=== PATIENT | male | born 1965 | race Two or more races ===

== ENCOUNTER 2024-07-08 14:31 | Inpatient (IN) | payer OTHER, MEDICAID ==
[~2024-07-08] VITALS: Ht 165.1 cm; Wt 85.6 kg
[2024-07-08] MEDS: ACETAMINOPHEN 325 MG TAB PO ONE (15:01)
--- NOTE | 2024-07-08 15:12 | ED.PDOC ---
HPI Comments 58Y M with PMHx CAD, HLD, kidney CA s/p nephrectomy on HD, and CABG presents to ED via EMS for chief complaint chest pain x last night with fever and cough. Pt denies SOB. No other symptoms reported. Pt has dialysis on , , and . Chief Complaint: Chest Pain Time Seen by MD: 14:45 Reviewed Notes: Nurses Notes, Forklift Wheel Loader Notes, Medications, Allergies Allergies: Coded Allergies: NO KNOWN ALLERGIES (Unverified , 07/08/24) Information Source: Patient, Emergency Med Personnel Mode of Arrival: EMS Brought in by: EMS Severity: Mild Timing: Hours Duration: Since onset Prehospital treatment: None Radiation: No Radiation Onset: At Rest Cardiac Risk Factors: Other PE Risk Factors: None History of: None Modifying Factors: Nothing Associated Signs and Symptoms: Other Past Medical History PAST MEDICAL HISTORY: CAD, Cancer, High Lipids Surgical History: CABG Family History Family History: Unknown Social History Smoker: Non-Smoker Alcohol: Denies ETOH Use Drugs: Denies Drug Use Lives In: Home Constitutional: reports: fever; denies: chills, diaphoresis, fatigue, malaise, sweats, weakness, others EENTM: denies: blurred vision, double vision, ear bleeding, ear discharge, ear drainage, ear pain, ear ringing, eye pain, eye redness, hearing loss, mouth pain, mouth swelling, nasal discharge, nose bleeding, nose congestion, nose pain, photophobia, tearing, throat pain, throat swelling, voice changes, others Respiratory: reports: cough; denies: hemoptysis, orthopnea, SOB at rest, shortness of breath, SOB with excertion, stridor, wheezing, others Cardiovascular: reports: chest pain; denies: dizzy spells, diaphoresis, Dyspnea on exertion, edema, irregular heart beat, left arm pain, lightheadedness, palpitations, PND, syncope, others Gastrointestinal: denies: abdomen distended, abdominal pain, blood streaked bowels, constipated, diarrhea, dysphagia, difficulty swallowing, hematemesis, melena, nausea, poor appetite, poor fluid intake, rectal bleeding, rectal pain, vomiting, others Genitourinary: denies: burning, dysuria, flank pain, frequency, hematuria, incontinence, penile discharge, penile sore, pain, testicle pain, testicle swelling, urgency, others Neurological: denies: dizziness, fainting, headache, left sided numbness, left sided weakness, numbness, paresthesia, pre-existing deficit, right sided numbness, right sided weakness, seizure, speech problems, tingling, tremors, weakness, others Musculoskeletal: denies: back pain, gout, joint pain, joint swelling, muscle pain, muscle stiffness, neck pain, others Integumetry: denies: bruises, change in color, change in hair/nails, dryness, laceration, lesions, lumps, rash, wounds, others Allergic/Immunocompromised: denies: Difficulty Healing, Frequent Infections, Hives, Itching, others Hematologic/Lymphatic: denies: anemia, blood clots, easy bleeding, easy bruising, swollen glands, others Endocrine: denies: excessive hunger, excessive sweating, excessive thirst, excessive urination, flushing, intolerance to cold, intolerance to heat, unexplained weight gain, unexplained weight loss, others Psychiatric: denies: anxiety, bipolar disorder, depression, hopeless, panic disorder, schizophrenia, sleepless, suicidal, others All Other Systems: Reviewed and Negative Physical Exam General Appearance: No Apparent Distress, Normal HEENT: Normal ENT Inspection, Pharynx Normal, TMs Normal Neck: Full Range of Motion, Non-Tender, Normal, Normal Inspection Respiratory: Chest Non-Tender, Lungs Clear, No Accessory Muscle Use, No Respiratory Distress, Normal Breath Sounds Cardiovascular: No Edema, No JVD, No Murmur, No Gallop, Normal Peripheral Pulses, Regular Rate/Rhythm Breast Exam: Deferred Gastrointestinal: No Organomegaly, Non Tender, No Pulsatile Mass, Normal Bowel Sounds, Soft Genitalia: Deferred Pelvic: Deferred Rectal: Deferred Extremities: No calf tenderness, Normal capillary refill, Normal inspection, Normal range of motion, Non-tender, No pedal edema Musculoskeletal : Apperance: Normal Neurologic: Alert, pan devulcanizer II-XII nml as Tested, No Motor Deficits, Normal Affect, Normal Mood, No Sensory Deficits Cerebellar Function: Normal Reflexes: Normal Skin: Dry, Normal Color, Warm Lymphatic: No Adenopathy EKG EKG : Pulse Rate (adult): 78 [place]: Normal Cardiac Rhythm: NSR Block: None Hypertrophy: None ST: Normal Was a procedure done? Was a procedure done?: Yes Sedation Sedation?: No Central Line Recorder of insertion practice: Director Instructional Material Occupation of wire chief: Attending Physician (Glen Bowman MD) Indication: Hypotension, Volume resuscitation Room prepared for procedure: Yes Director Instructional Material performed hand hygien: Yes Maximal sterile barrier precau: Sterile gown, Sterlie gloves, Large sterlie drape Skin Preparation: Chlorhexidine gluconate Skin preparation completely dr: Yes Insertion site: Left, Femoral Central line catheter type: [id number] dialysis Number of lumens: 3 Central line exchanged over a: Yes Antiseptic ointment applied to: No Post Assessment: Proper placement Informed consent obtained: Yes Risks/benefits/alt described: Yes CP Differential Dx Differential Diagnosis: Other Differential Diagnosis: Angina, Chest Wall Pain, Costochondritis, Myocardial Infarction, Pericarditis, Pneumonia, Other (sepsis, necrotizing fasciitis) X-Ray, Labs, Meds, VS Vital Signs Date Time Temp Pulse Resp B/P (MAP) Pulse Ox O2 Delivery O2 Flow Rate FiO2 07/08/24 20:05 87/46 07/08/24 20:00 85 07/08/24 19:50 85/46 07/08/24 19:45 73/42 07/08/24 19:45 82/46 07/08/24 19:35 86/52 07/08/24 19:30 81 8 100 Nasal Cannula* 4 36 07/08/24 19:30 81 8 86/52 (63) 100 07/08/24 19:15 78 16 88/61 (70) 99 07/08/24 19:15 88/61 07/08/24 19:00 78 16 96/55 (69) 99 07/08/24 19:00 96/55 07/08/24 18:45 77 16 91/59 (70) 99 07/08/24 18:30 94/64 07/08/24 18:30 78 16 94/64 (74) 99 07/08/24 18:28 81 20 94 Nasal Cannula* 4 36 07/08/24 18:15 73 16 59/33 (42) 99 07/08/24 18:15 64/33 07/08/24 18:00 72 16 56/34 (41) 99 07/08/24 17:52 78 07/08/24 17:45 76 16 83/59 (67) 99 07/08/24 17:34 78 07/08/24 17:30 77 16 83/49 (60) 99 07/08/24 17:30 83/49 07/08/24 17:25 84/48 07/08/24 17:15 77 16 73/48 (56) 99 07/08/24 17:15 74/34 07/08/24 17:00 77 16 83/51 (62) 99 07/08/24 16:45 80 16 86/55 (65) 99 07/08/24 16:35 82 07/08/24 16:30 80 16 98/51 (67) 99 07/08/24 16:15 82 16 103/50 (67) 99 07/08/24 16:00 98.9 89 16 117/53 (74) 99 98.9 07/08/24 15:32 83 07/08/24 15:01 89 16 99 Room Air 07/08/24 15:01 104.0 07/08/24 15:01 104.4 89 16 128/49 (75) 99 104.4 07/08/24 14:57 99.9 105 32 100/58 (72) 96 07/08/24 14:39 98 Lab Test 07/08/24 21:11 07/08/24 18:40 07/08/24 17:54 07/08/24 16:53 Range/Units Lactic Acid Level Pending 3.4 *H 3.1 *H 0.4-2.0 mmol/L Troponin I High Sensitivity 33 </=54 ng/L POC Glucose 87 70-106 mg/dl Test 07/08/24 16:25 07/08/24 15:22 07/08/24 15:07 Range/Units Troponin I High Sensitivity 33 32 </=54 ng/L White Blood Count 1.8 *L 4.4-10.8 10^3/uL Red Blood Count 2.13 L 4.5-5.90 10^6/uL Hemoglobin 7.5 L 13.5-17.5 g/dL Hematocrit 23.1 L 41.0-53.0 % Mean Corpuscular Volume 108.6 H 80.0-100.0 fL Mean Corpuscular Hemoglobin 35.4 H 28.0-32.0 pg Mean Corpuscular Hemoglobin Concent 32.7 32.0-36.0 g/dL Red Cell Distribution Width 15.6 H 11.8-14.3 % Platelet Count 62 L 140-450 10^3/uL Mean Platelet Volume 9.5 6.9-10.8 fL Neutrophils (%) (Auto) 37.0-80.0 % Lymphocytes (%) (Auto) 10.0-50.0 % Monocytes (%) (Auto) 0.0-12.0 % Basophils (%) (Auto) 0.0-2.0 % Neutrophils # (Auto) 1.6-8.6 10 ^3/uL Lymphocytes # (Auto) 0.4-5.4 10 ^3/uL Monocytes # (Auto) 0-1.3 10 ^3/uL Differential Total Cells Counted 100.0 100 Neutrophils % (Manual) 53 37.0-80.0 Band Neutrophils % (Manual) 11 Lymphocytes % (Manual) 34 10.0-50.0 Monocytes % (Manual) 2 0-12 Eosinophils % (Manual) 0 0-7 Basophils % (Manual) 0 0.0-2.0 Metamyelocytes % (manual) 0 Myelocytes % (Manual) 0 Promyelocytes % (Manual) 0 Blast Cells % (Manual) 0 Reactive Lymphocytes 0 Platelet Estimate Decreased Prothrombin Time 17.4 H 9.3-11.8 sec Prothrombin Time INR 1.71 H 0.9-1.15 Activated Partial Thromboplast Time 32.6 24.5-34.5 SEC Sodium Level 137 136-145 mmol/L Potassium Level 4.1 3.5-5.1 mmol/L Chloride Level 103 98-107 mmol/L Carbon Dioxide Level 23 20-31 mmol/L Anion Gap 11 5-15 Blood Urea Nitrogen 37 H 9-23 mg/dL Creatinine 5.66 H 0.700-1.30 mg/dL Glomerular Filtration Rate Calc 11 >90 mL/min BUN/Creatinine Ratio 6.5 L 10.0-20.0 Serum Glucose 80 74-106 mg/dL Calcium Level 7.7 L 8.7-10.4 mg/dL Total Bilirubin 0.6 0.2-1.0 mg/dL Aspartate Amino Transferase (AST) 244 H 13-40 U/L Alanine Aminotransferase (ALT) 561 H 7-40 U/L Alkaline Phosphatase 105 46-116 U/L Creatine Kinase 114 46-171 U/L Total Protein 5.4 L 5.7-8.2 g/dL Albumin 3.5 3.2-4.8 g/dL Influenza Type A Antigen Negative Negative Influenza Type B Antigen Negative Negative SARS-CoV-2 Antigen (Rapid) Negative NEGATIVE Current Medications Medications (Trade) Dose Ordered Sig/Rey Route Start Time Stop Time Status Last Admin Acetaminophen (Tylenol Tablet) 650 mg ONCE ONCE PO 07/08/24 15:00 07/08/24 15:01 DC 07/08/24 15:01 Sodium Chloride 1,800 ml @ 1,800 mls/hr ONCE ONCE IV 07/08/24 17:00 07/08/24 17:59 DC 07/08/24 17:00 Piperacillin Sod/ Tazobactam Sod 50 ml @ 50 mls/hr ONCE ONCE IV 07/08/24 17:00 07/08/24 17:59 DC 07/08/24 17:00 Norepinephrine Bitartrate 250 ml @ 3.75 mls/hr Q24H IV 07/08/24 17:15 07/08/24 17:15 Vancomycin HCl 250 ml @ 200 mls/hr ONCE ONCE IV 07/08/24 17:15 07/08/24 18:29 DC 07/08/24 17:15 Phenylephrine HCl 250 ml @ 30 mls/hr Q8H20M ONCE IV 07/08/24 19:30 07/09/24 03:49 07/08/24 19:45 Acetaminophen/ Hydrocodone Bitart ([place] 10/325MG Tab) 2 tab ONCE ONCE PO 07/08/24 19:30 07/08/24 19:31 DC 07/08/24 20:02 [place] [id number] Ph: [phone] DIAGNOSTIC IMAGING Diagnostic Imaging Report : [id number] Signed PATIENT: LARON GARCIA ACCT: [id number] UNIT: [id number] : 1965 LOC: ER ROOM / BED: / AGE / SEX: 58 / M ADM STATUS: REG ER SERVICE 1452 ORDERING PHYSICIAN: TRACEY OROZCO MD PROCEDURE(s): CXRP - CHEST PORTABLE REASON: CP ORDER NUMBER(s): [id number], ACCESSION NUMBER(s): [id number] CHEST RADIOGRAPH Indication: CP Technique: Single frontal view of the chest was obtained Comparison: None FINDINGS: Lines and Tubes: None Lungs: Bronchovascular crowding due to low lung volumes. Diffuse interstitial prominence with obscuration of the left hemidiaphragm. No pneumothorax. Cardiomediastinal contours: [id number] cardiomegaly. Midline sternotomy wires with surgical clips are noted consistent with prior history of CABG. Bones: No acute osseous abnormality. IMPRESSION: Bronchovascular crowding. Underlying mild pulmonary vascular congestion can not be excluded. Obscuration of the left hemidiaphragm which may be from overlying cardiac silhouette with underlying pleural effusion /atelectasis / pneumonia not excluded. ATED BY: KAY OGDEN DO DICTATED DATE/TIME: 07/08/241605 SIGNED BY: KAY OGDEN DO SIGNED DATE/TIME: 07/08/241605 CC: X-Ray, Labs, Meds, VS Comment Addendum by Dr. Aretha Bowman Patient endorsed to me by Dr. Orozco to follow-up on CT results and admit. 58-year-old male with history of renal cancer on dialysis, hypertension, hyperlipidemia presenting with chest pain , fever, cough, body aches Vitals remarkable for BP 86/52 Rhythm strip independently interpreted by me: Sinus rhythm, rate 78, no ectopy. EKG sinus rhythm, no ST/T changes Chest x-ray IMPRESSION: Bronchovascular crowding. Underlying mild pulmonary vascular congestion can not be excluded. Obscuration of the left hemidiaphragm which may be from overlying cardiac silhouette with underlying pleural effusion /atelectasis / pneumonia not excluded. CT right thigh: IMPRESSION: Subcutaneous edema right worse than left No gas in the soft tissues. Small bilateral effusions in the knee. Lower extremity ultrasound bilateral: Impression: 1. No right or left femoropopliteal venous thrombosis. 2. Right popliteal trifurcation region not evaluated because of patient's unable to tolerate compression. CBC remarkable for WBC 1.8, hemoglobin 7.5, hematocrit 23.1, platelets 62, CMP remarkable for BUN 37, creatinine 5.66, calcium 7.7, AST 244, ALT 561, coag panel remarkable for PT 17.4, INR 1.71, total CK normal, troponin negative x2, lactate 3.1, repeat 3.4 Patient treated with the following in the ED: Zosyn 4.5 g IV g IV, vancomycin per pharmacy IV, cefepime 1 g IV, Tylenol 650 mg p.o., [place] 10/325 mg 2 tabs p.o. Hypotensive, so started on Levophed infusion, then phenylephrine infusion added Morphine 4 mg IV, Zofran 4 mg IV once blood pressure stable Patient will need ICU admission Time of 1ST Reevaluation: 15:15 Reevaluation 1ST: Unchanged Time of 2ND Reevaluation: 17:49 Reevaluation 2ND: Unchanged (pt is resting comfortrably, but the right thigh is heating fixture tender, no crepitus. no changes in the purpura) Patient Education/Counseling: Diagnosis, Treatment, Prognosis, Need For Follow Up Family Education/Counseling: No Family Present Additional Information I reviewed the following notes from patient's past medical encounters: None The following tests were ordered, and results were reviewed by me: EKG x3, CBC, CMP, Troponin x3, COVID19 Ag, Influenza A&B, CXR Additional Information was gathered from interviewing the following independent historians: EMS I reviewed and agreed with the following test results read by other providers: CXR I discussed treatment and results with medical personnel. pt is resting comfortably, but his right thigh has extensive purpura and left knee has a small purpura. pt denies injuries. he does have sepsis but the source is unclear. he has pneumonia symptoms, but cxr is inconclusive. sepsis order has been initiated. ct of both lower extremities are ordered to rule out necrotizing fasciitis. pt will be admitted if ct is negative for necrotizing fasciitis pt is still pending ct. i will sign out to Dr Aretha Morley Sepsis Sepsis Reasesment Focused Exam Sepsis focused exam: focus exam completed (2115. Vitals stable. On Levophed and phenylephrine) Departure 1 Departure Time of Disposition: 16:54 Impression: Primary Impression: Renal failure Qualified Codes: N17.9 - Acute kidney failure, unspecified; N18.9 - Chronic kidney disease, unspecified Additional Impressions: Pancytopenia Sepsis Qualified Codes: A41.9 - Sepsis, unspecified organism Purpura Pneumonia Qualified Codes: J18.9 - Pneumonia, unspecified organism Disposition: ADMITTED INPATIENT Admit to: [facility] Condition: Critical Critical Care Note Critical Care Time?: Yes (1 hr-critical care time only) Critical care comment: Due to concerns for patients condition deteriorating, the care required my highest level of attention and readiness to intervene. I assessed the patient, reviewed the medical records, ordered the appropriate tests and treatments, then reassessed for results and responsiveness. I communicated with medical personnel and consultants and formulated a plan of care. Total critical care time excludes any procedures Stability Stability form required: No Heart Score Heart Score: Heart Score Response (Comments) Value History Moderate Suspicious 1 EKG Normal 0 Age 45-64 1 Risk Factors >3 or Hx ASHD 2 Troponin Normal limit 0 Total 4 I personally scribed for TRACEY OROZCO MD ([facility]) on 07/08/24 at 15:12. Electronically submitted by Katheryn Goldman ([facility]). I personally scribed for TRACEY OROZCO MD ([facility]) on 07/08/24 at 16:12. Electronically submitted by Katheryn Goldman ([facility]). I personally scribed for TRACEY OROZCO MD ([facility]) on 07/08/24 at 19:42. Electronically submitted by Jatinder Recinos ([facility]). TRACEY OROZCO MD Jul 08, 2024 15:12 ANDER VASQUES MD Jul 08, 2024 21:18
[2024-07-08 15:39] LABS: Hematocrit 23.1 % (41.0-53.0); Hemoglobin 7.5 g/dL (13.5-17.5); Mean Corpuscular Hemoglobin 35.4 pg (28.0-32.0); Mean Corpuscular Hgb Conc. 32.7 g/dL (32.0-36.0); Mean Corpuscular Volume 108.6 fL (80.0-100.0); Platelet Count (auto) 62 10^3/uL (140-450); Red Blood Cells 2.13 10^6/uL (4.5-5.90); Red Cell Distribution Width 15.6 % (11.8-14.3)
[2024-07-08 15:42] LABS: White Blood Cell 1.8 10^3/uL (4.4-10.8)
[2024-07-08 15:51] LABS: Basophils % (manual) 0 (0.0-2.0); Blast Cells 0; Eosinophils % (manual) 0 (0-7); Metamyelocytes % 0; Myelocytes % 0; Promyelocytes % 0; Reactive Lymphocytes 0
--- NOTE | 2024-07-08 16:09 | DVH ---
CHEST RADIOGRAPH Indication: CP Technique: Single frontal view of the chest was obtained Comparison: None FINDINGS: Lines and Tubes: None Lungs: Bronchovascular crowding due to low lung volumes. Diffuse interstitial prominence with obscura tion of the left hemidiaphragm. No pneumothorax. Cardiomediastinal contours: [id number] cardiomegaly. Midline sternotomy wires with surgical cl ips are noted consistent with prior history of CABG. Bones: No acute osseous abnormality. IMPRESSION: Bronchovascular crowding. Underlying mild pulmonary vascular congestion can not be excluded. Obscuration of the left hemidiaphragm which may be from overlying cardiac silhouette with underlying pleural effusion /atelectasis / pneumonia not excluded.
[2024-07-08 16:11] LABS: COVID19 ANTIGEN SOFIA FIA NEGATIVE (NEGATIVE); Rapid Influenza A Negative (Negative); Rapid Influenza B Negative (Negative)
[2024-07-08 16:15] LABS: Albumin 3.5 g/dL (3.2-4.8); Alkaline Phosphatase 105 U/L (46-116); Anion Gap 11 (5-15); BUN/Creatinine Ratio 6.5 (10.0-20.0); Carbon Dioxide 23 mmol/L (20-31); Chloride 103 mmol/L (98-107); Glucose 80 mg/dL (74-106); Potassium 4.1 mmol/L (3.5-5.1); Sodium 137 mmol/L (136-145)
[2024-07-08 16:16] LABS: Bilirubin, Total 0.6 mg/dL (0.2-1.0)
[2024-07-08 16:19] LABS: Alanine Aminotransferase 561 U/L (7-40); Aspartate Aminotransferase 244 U/L (13-40); Blood Urea Nitrogen 37 mg/dL (9-23); Calcium 7.7 mg/dL (8.7-10.4); Total Protein 5.4 g/dL (5.7-8.2)
[2024-07-08 16:46] LABS: Band Neutrophils % (manual) 11; Lymphocytes % (manual) 34 (10.0-50.0); Monocytes % (manual) 2 (0-12); Platelet Estimate Decreased
[2024-07-08] MEDS ORDERED: VANCOMYCIN PER PHARMACY 0 MG IV SCH (17:00)
[2024-07-08] MEDS: PIPERACILLIN-TAZOB 2.25GM 50 ML IV ONE (17:00)
[2024-07-08] MEDS: SODIUM CHLORIDE 0.9% 1,800 ML IV ONE (17:00)
[2024-07-08] MEDS: NOREPINEPHRINE 8 MG/250ML KIT 250 ML IV SCH (17:15)
[2024-07-08] MEDS: VANCOMYCIN 1.25GM/250ML 250 ML IV ONE (17:15)
[2024-07-08 18:28] VITALS: PULSE 81; RESP 20; O2SAT 94
[2024-07-08 19:05] LABS: Lactic Acid w/Reflex 3.1 mmol/L (0.4-2.0)
--- NOTE | 2024-07-08 19:15 | DVH ---
INDICATION: bilateral thighs tender,m swollen, r/o necrotizing fascitis COMPARISON: None TECHNIQUE: CT of the right was performed without contrast. Volume transverse images were obtained a nd reconstructed in multiple planes using bone and soft tissue algorithms. CONTRAST: None Radiation Dose Information: CT Dose: CTDI volume is 12.86 mGy. Dose-length product is 1061.02 mGy*cm FINDINGS: The alignment is normal. The joint spaces are normal. Small bilateral joint effusions of the knee There is no fracture, dislocation, or focal osseous lesions. The soft tissues are normal. No gas in the soft tissues. Subcutaneous edema right worse than left. N o drainable fluid collections. IMPRESSION: Subcutaneous edema right worse than left No gas in the soft tissues. Small bilateral effusions in the knee.
[2024-07-08 19:30] VITALS: PULSE 81; RESP 8; O2SAT 100
[2024-07-08 19:43] LABS: INR 1.71 (0.9-1.15); Partial Thromboplastin Time 32.6 SEC (24.5-34.5); Prothrombin Time 17.4 sec (9.3-11.8)
[2024-07-08] MEDS: PHENYLEPHRINE IV 250 ML IV ONE (19:45)
[2024-07-08] MEDS: HYDROcodone-ACET 10/325MG TAB PO ONE (20:02)
--- NOTE | 2024-07-08 20:55 | DVH ---
Bilateral lower extremity venous duplex Clinical History: edema r/o dvt Comparison: None Technique: Duplex Doppler evaluation of the deep venous systems of both lower extremities from the common femora l veins to the popliteal veins including color Doppler and spectral/pulsed waveform analysis was perf ormed. Findings: RIGHT SIDE: The common femoral vein demonstrates appropriate compressibility and waveform variability. There is compressibility/patency of the great saphenous vein at the proximal thigh. The femoral vein demonstrates appropriate compressibility and waveform variability. The deep femoral vein demonstrates appropriate compressibility and waveform variability. The popliteal vein patient unable to tolerate compression of the popliteal vein and therefore not vis ualized. Patient unable to tolerate compression of the trifurcation region and therefore not imaged LEFT SIDE: The common femoral vein demonstrates appropriate compressibility and waveform variability. There is compressibility/patency of the great saphenous vein at the proximal thigh. The femoral vein demonstrates appropriate compressibility and waveform variability. The deep femoral vein demonstrates appropriate compressibility and waveform variability. The popliteal vein demonstrates appropriate compressibility and waveform variability. There is normal compressibility at the tibioperoneal trunk. Impression: 1. No right or left femoropopliteal venous thrombosis. 2. Right popliteal trifurcation region not evaluated because of patient's unable to tolerate compress ion.
[2024-07-08 21:44] LABS: Lactic Acid w/Reflex 3.8 mmol/L (0.4-2.0)
[2024-07-08] MEDS ORDERED: CEFEPIME 1GM/ 50ML 50 ML IV SCH (22:00)
[2024-07-08] MEDS: MORPHINE SULFATE 4 MG/ML SYR/VIAL IV ONE (22:31)
[2024-07-08] MEDS: ONDANSETRON HCL 4 MG/2 ML VIAL IV ONE (22:32)
[2024-07-08] MEDS: PHENYLEPHRINE IV 250 ML IV SCH (23:12)
[2024-07-09] VITALS (30 sets, daily range): BP systolic 95–174; BP diastolic 29–95; PULSE 78–124; RESP 15–26; TEMP 97–98; O2SAT 98–100
[2024-07-09] MEDS ORDERED: ONDANSETRON HCL 4 MG/2 ML VIAL IV PRN (01:45)
[2024-07-09] MEDS ORDERED: DOCUSATE SOD 100 MG CAP PO PRN (01:45)
[2024-07-09] MEDS: levoFLOXacin 500MG 100 ML IV ONE (02:46)
--- NOTE | 2024-07-09 03:10 | DVHHP2 ---
History of Present Illness Reason for Visit: Sepsis, unspecified organism History of Present Illness The patient is a 58-year-old male with past medical history of kidney cancer status post nephrectomy on hemodialysis, Coronary artery disease, and hyperlipidemia who presented to [facility] ED with complaint of [address] pain. Patient reports symptoms progressively get worse with fever, nonproductive cough, right thigh redness/tenderness, getting worse that prompted this visit. Patient was seen and evaluated in the ED, laboratory data shows WBC 1.8, hemoglobin 7 five hematocrit 23.1, platelets 16892, sodium 137, potassium 4.1, BUN 37, creatinine 5.66, GFR 11, glucose 80, protein 5.4 troponin 33, lactic acid 3.8, AST 344, ALT 560, blood pressure 78/45 trending up to 99/60, heart rate 88, temperature 98.9 F, O2 saturation 99% oxygen. Extremity venous study showed no evidence of venous thrombosis; chest x-ray revealing obscuration of the left hemidiaphragm which may be overlying cardiac silhouette with underlying pleural effusion/atelectasis/pneumonia not excluded. Extremity CT revealing subcutaneous edema right worse than left, small pleural effusions in the knee, no gas in the soft tissue. Patient was started on IV Levophed, antibiotic regimen vancomycin, please see medication orders section in the computer. On my assessment, patient denied chest pain, no headache, no dizziness, no diaphoresis, no nausea, no vomiting, no fever, no chills. Patient was admitted for further evaluation and medical management. Past Medical History CAD, kidney cancer, High Lipids Past Surgical History CABG, nephrectomy. Family History Reviewed, noncontributory to the management of this case. Past Social History The patient lives at home, denies smoking, alcohol or illicit drugs abuse. Review of Systems Constitutional: Yes: Fever, Weakness; No: Chills, Sweats, Malaise, Other Eyes: No: Pain, Vision change, Conjunctivae inflammation, Eyelid inflammation, Other, Redness ENT: No: Ear pain, Ear discharge, Nose pain, Nose discharge, Nose congestion, Mouth pain, Mouth swelling, Throat pain, Throat swelling, Other Respiratory: Cough; No: Dry, Shortness of breath, SOB with excertion, Wheezing, Hemoptysis, Pleuritic Pain, Sputum, Wheezing, Other Cardiovascular: Chest Pain; No: Palpitations, Orthopnea, Paroxysmal Noc. Dyspnea, Edema, Lt Headedness, Other Gastrointestinal: No: Nausea, Vomiting, Abdominal Pain, Diarrhea, Constipation, Melena, Hematochezia, Other Genitourinary: No Dysuria, No Frequency, No Incontinence, No Hematuria, No Retention, No Other Musculoskeletal: other (Right knee pain), leg pain (Right); No: neck pain, shoulder pain, arm pain, back pain, hand pain, foot pain Skin: Other (Right thigh redness); No: Rash, Lesions, Jaundice, Bruising Neurological: No: Weakness, Numbness, Incoordination, Change in speech, Confusion, Seizures, Other Allergies: Coded Allergies: NO KNOWN ALLERGIES (Unverified , 07/08/24) Medications Current Medications Medications Dose Ordered Sig/Rey Route Start Time Stop Time Status Last Admin Dose Admin Vancomycin HCl 0 ml @ 0 mls/hr UD IV 07/08/24 17:00 Norepinephrine Bitartrate 250 ml @ 3.75 mls/hr Q24H IV 07/08/24 17:15 07/09/24 02:56 30 MLS/HR Phenylephrine HCl 250 ml @ 30 mls/hr Q8H20M IV 07/08/24 23:00 07/08/24 23:12 67.5 MLS/HR Sevelamer HCl 800 mg TIDWM PO 07/09/24 08:00 Multivit/Ca Carb/ B Cmplx/FA/Prenat 1 tab DAILY PO 07/09/24 10:00 Atorvastatin Calcium 20 mg HS PO 07/09/24 22:00 Levofloxacin 50 ml @ 50 mls/hr Q48H IV 07/10/24 02:00 Sodium Chloride 10 ml Q8HR IV 07/09/24 06:00 Acetaminophen/ Hydrocodone Bitart 1 tab Q4HP PRN PO 07/09/24 01:45 Ondansetron HCl 4 mg Q4HP PRN IV 07/09/24 01:45 Docusate Sodium 100 mg BIDPRN PRN PO 07/09/24 01:45 Exam Vital Signs Vital Signs Date Time Temp Pulse Resp B/P (MAP) Pulse Ox O2 Delivery O2 Flow Rate FiO2 07/09/24 03:00 90/52 07/09/24 01:30 86 21 98 07/08/24 19:30 Nasal Cannula* 4 36 07/08/24 19:30 98.9 98.9 General Appearance: Alert, Oriented X3, Cooperative, No acute distress HEENT: Atraumatic, PERRLA, EOMI, Mucous membr. moist/pink Respiratory: Clear to auscultation, Normal air movement Cardiovascular: Regular rate, Normal S1, Normal S2, No murmurs Abdominal: Normal bowel sounds, Soft, No tenderness, No hepatospenomegaly, No masses Extremities: No clubbing, No cyanosis, No edema, Normal pulses, Other (Right thigh tenderness/swelling) Skin: No rashes, No breakdown, No significant lesion Neuro: Normal speech, Normal tone, Sensation intact, Cranial nerves 3-12 NL, Reflexes 2+, Other (Generalized weakness) Psych/Mental Status: Mental status NL, Mood NL Labs/Xrays Labs Test 07/08/24 22:27 07/08/24 21:11 07/08/24 17:54 07/08/24 15:22 Range/Units POC Glucose 78 70-106 mg/dl Lactic Acid Level 3.8 *H 0.4-2.0 mmol/L Troponin I High Sensitivity 33 </=54 ng/L White Blood Count 1.8 *L 4.4-10.8 10^3/uL Red Blood Count 2.13 L 4.5-5.90 10^6/uL Hemoglobin 7.5 L 13.5-17.5 g/dL Hematocrit 23.1 L 41.0-53.0 % Mean Corpuscular Volume 108.6 H 80.0-100.0 fL Mean Corpuscular Hemoglobin 35.4 H 28.0-32.0 pg Mean Corpuscular Hemoglobin Concent 32.7 32.0-36.0 g/dL Red Cell Distribution Width 15.6 H 11.8-14.3 % Platelet Count 62 L 140-450 10^3/uL Mean Platelet Volume 9.5 6.9-10.8 fL Neutrophils (%) (Auto) 37.0-80.0 % Lymphocytes (%) (Auto) 10.0-50.0 % Monocytes (%) (Auto) 0.0-12.0 % Basophils (%) (Auto) 0.0-2.0 % Neutrophils # (Auto) 1.6-8.6 10 ^3/uL Lymphocytes # (Auto) 0.4-5.4 10 ^3/uL Monocytes # (Auto) 0-1.3 10 ^3/uL Differential Total Cells Counted 100.0 100 Neutrophils % (Manual) 53 37.0-80.0 Band Neutrophils % (Manual) 11 Lymphocytes % (Manual) 34 10.0-50.0 Monocytes % (Manual) 2 0-12 Eosinophils % (Manual) 0 0-7 Basophils % (Manual) 0 0.0-2.0 Metamyelocytes % (manual) 0 Myelocytes % (Manual) 0 Promyelocytes % (Manual) 0 Blast Cells % (Manual) 0 Reactive Lymphocytes 0 Platelet Estimate Decreased Prothrombin Time 17.4 H 9.3-11.8 sec Prothrombin Time INR 1.71 H 0.9-1.15 Activated Partial Thromboplast Time 32.6 24.5-34.5 SEC Sodium Level 137 136-145 mmol/L Potassium Level 4.1 3.5-5.1 mmol/L Chloride Level 103 98-107 mmol/L Carbon Dioxide Level 23 20-31 mmol/L Anion Gap 11 5-15 Blood Urea Nitrogen 37 H 9-23 mg/dL Creatinine 5.66 H 0.700-1.30 mg/dL Glomerular Filtration Rate Calc 11 >90 mL/min BUN/Creatinine Ratio 6.5 L 10.0-20.0 Serum Glucose 80 74-106 mg/dL Calcium Level 7.7 L 8.7-10.4 mg/dL Total Bilirubin 0.6 0.2-1.0 mg/dL Aspartate Amino Transferase (AST) 244 H 13-40 U/L Alanine Aminotransferase (ALT) 561 H 7-40 U/L Alkaline Phosphatase 105 46-116 U/L Creatine Kinase 114 46-171 U/L Total Protein 5.4 L 5.7-8.2 g/dL Albumin 3.5 3.2-4.8 g/dL Test 07/08/24 15:07 Range/Units Influenza Type A Antigen Negative Negative Influenza Type B Antigen Negative Negative SARS-CoV-2 Antigen (Rapid) Negative NEGATIVE PATIENT: LARON GARCIA ACCT: [id number] UNIT: [id number] : 1965 LOC: ER ROOM / BED: / AGE / SEX: 58 / M ADM STATUS: REG ER SERVICE 27 ORDERING PHYSICIAN: ANDER VASQUES MD PROCEDURE(s): BLDVT - BiLat Lower DVT REASON: edema r/o dvt ORDER NUMBER(s): [id number], ACCESSION NUMBER(s): [id number] Bilateral lower extremity venous duplex Clinical History: edema r/o dvt Comparison: None Technique: Duplex Doppler evaluation of the deep venous systems of both lower extremities from the common femoral veins to the popliteal veins including color Doppler and spectral/pulsed waveform analysis was performed. Findings: RIGHT SIDE: The common femoral vein demonstrates appropriate compressibility and waveform variability. There is compressibility/patency of the great saphenous vein at the proximal thigh. The femoral vein demonstrates appropriate compressibility and waveform variability. The deep femoral vein demonstrates appropriate compressibility and waveform variability. The popliteal vein patient unable to tolerate compression of the popliteal vein and therefore not visualized. Patient unable to tolerate compression of the trifurcation region and therefore not imaged LEFT SIDE: The common femoral vein demonstrates appropriate compressibility and waveform variability. There is compressibility/patency of the great saphenous vein at the proximal thigh. The femoral vein demonstrates appropriate compressibility and waveform variability. The deep femoral vein demonstrates appropriate compressibility and waveform variability. The popliteal vein demonstrates appropriate compressibility and waveform variability. There is normal compressibility at the tibioperoneal trunk. Impression: 1. No right or left femoropopliteal venous thrombosis. 2. Right popliteal trifurcation region not evaluated because of patient's unable to tolerate compression. ORDERING PHYSICIAN: TRACEY REBOLLEDO MD PROCEDURE(s): RLEX - LOWER EXTREMITY NON JOINT RIGH REASON: bilateral thighs tender,m swollen, r/o necrotizing fascitis ORDER NUMBER(s): [id number], ACCESSION NUMBER(s): [id number] INDICATION: bilateral thighs tender,m swollen, r/o necrotizing fascitis COMPARISON: None TECHNIQUE: CT of the right was performed without contrast. Volume transverse images were obtained and reconstructed in multiple planes using bone and soft tissue algorithms. CONTRAST: None Radiation Dose Information: CT Dose: CTDI volume is 12.86 mGy. Dose-length product is 1061.02 mGy*cm FINDINGS: The alignment is normal. The joint spaces are normal. Small bilateral joint effusions of the knee There is no fracture, dislocation, or focal osseous lesions. The soft tissues are normal. No gas in the soft tissues. Subcutaneous edema right worse than left. No drainable fluid collections. IMPRESSION: Subcutaneous edema right worse than left No gas in the soft tissues. Small bilateral effusions in the knee. ORDERING PHYSICIAN: TRACEY REBOLLEDO MD PROCEDURE(s): CXRP - CHEST PORTABLE REASON: CP ORDER NUMBER(s): [id number], ACCESSION NUMBER(s): [id number] CHEST RADIOGRAPH Indication: CP Technique: Single frontal view of the chest was obtained Comparison: None FINDINGS: Lines and Tubes: None Lungs: Bronchovascular crowding due to low lung volumes. Diffuse interstitial prominence with obscuration of the left hemidiaphragm. No pneumothorax. Cardiomediastinal contours: Afdw-nv-aihaobih cardiomegaly. Midline sternotomy wires with surgical clips are noted consistent with prior history of CABG. Bones: No acute osseous abnormality. IMPRESSION: Bronchovascular crowding. Underlying mild pulmonary vascular congestion can not be excluded. Obscuration of the left hemidiaphragm which may be from overlying cardiac silhouette with underlying pleural effusion/atelectasis/pneumonia not excluded. Assessment/Plan Assessment/Plan End-stage renal disease on hemodialysis Acute kidney failure, unspecified Chronic kidney disease, unspecified Pancytopenia Severe anemia Necrotizing fasciitis of lower leg Sepsis, unspecified organism Purpura Elevated liver enzymes Generalized weakness Pneumonia, unspecified organism Plan 1. Admit to telemetry unit 2. Breathing treatment 3. Pain control management 4. IV antibiotic management 5. Management of fluids and electrolytes 6. Consultation for Nephrology/cardiology 7. Diagnostic test chest x-ray 8. DVT prophylaxis on SCDs 9. Repeat labs CBC, CMP in a.m. 10. Home medication reviewed and reconciled 11. Continue with current medical management 12. Treatment plan discussed with patient and RN. Patient verbalized understanding. Plan discussed with: Patient, Other (RN) My Orders Orders - NEDA REYES DNP Procedure Category Date Status Time Sevelamer (Renagel) PHA 07/09/24 In Process 08:00 B-Complex W/ C & PHA 07/09/24 In Process Folic Tablet 10:00 Atorvastatin (Lipitor) PHA 07/09/24 In Process 22:00 Allergies EV 07/09/24 In Process 01:32 Code Status CODE 07/09/24 Transmitted 01:32 Renal DIET 07/09/24 Transmitted Standard(2gna,3gk,Lopho) Breakfast Sodium Chloride Lock PHA 07/09/24 In Process (Saline Lock Ns) 06:00 Oxygen Per Hour RT 07/09/24 Transmitted 01:32 Hydrocodone-Acet PHA 07/09/24 In Process 5/325mg Tab ([place] 01:45 Ondansetron Hcl PHA 07/09/24 In Process (Zofran) 01:45 Docusate Sodium PHA 07/09/24 In Process Capsule (Colace 01:45 Fall Risk Precautions EV 07/09/[address] 01:32 Complete Blood Count LAB 07/10/24 Verified 04:00 Comprehensive LAB 07/10/24 Verified Metabolic Panel 04:00 Condition: Serious EV 07/09/24 In Process 01:32 Sequential EV 07/09/24 In Process Compression Device *Dr. [facility] CONS 07/09/24 Transmitted -[place] 01:32 Levofloxacin 250mg PHA 07/10/24 In Process (Levaquin 250mg) 02:00 Problem List: (1) End-stage renal disease on hemodialysis (2) Generalized weakness (3) Severe anemia (4) Sepsis, unspecified organism (5) Pneumonia, unspecified organism (6) Purpura (7) Pancytopenia (8) Chronic kidney disease, unspecified (9) Elevated liver enzymes (10) Acute kidney failure, unspecified (11) Necrotizing fasciitis of lower leg Date of Service: Jul 09, 2024 Billing Provider: NEDA REYES DNP Common Visit Codes: 68225-AMSOAZF INP/OBS CARE (HIGH) NEDA REYES DNP Jul 09, 2024 03:10
[2024-07-09] MEDS ORDERED: NITROGLYCERIN 0.4 MG SL TAB SL PRN (03:15)
[2024-07-09] MEDS: SODIUM CHLOR 0.9% PF (SALINE LOCK) 10ML VIAL/SYR IV SCH (06:05)
[2024-07-09] MEDS: MORPHINE SULFATE INJ 2 MG/ml SYRG IV PRN (06:32)
[2024-07-09 06:34] LABS: Basophils # (auto) 0 10 ^3/uL (0-0.2); Basophils % (auto) 0.1 % (0.0-2.0); Eosinophils # (auto) 0.1 10 ^3/uL (0-0.8); Lymphocytes # (auto) 0.6 10 ^3/uL (0.4-5.4); Monocytes % (auto) 6.5 % (0.0-12.0)
[2024-07-09 06:38] LABS: Eosinophils % (auto) 2.9 % (0.0-7.0); Hematocrit 24.8 % (41.0-53.0); Hemoglobin 8.2 g/dL (13.5-17.5); Lymphocytes % (auto) 14.6 % (10.0-50.0); Mean Corpuscular Hemoglobin 36.2 pg (28.0-32.0); Mean Corpuscular Volume 109.7 fL (80.0-100.0); Monocytes # (auto) 0.3 10 ^3/uL (0-1.3); Neutrophils % (auto) 75.9 % (37.0-80.0); Platelet Count (auto) 59 10^3/uL (140-450); Red Blood Cells 2.26 10^6/uL (4.5-5.90); Red Cell Distribution Width 16.3 % (11.8-14.3); White Blood Cell 3.9 10^3/uL (4.4-10.8)
--- NOTE | 2024-07-09 07:46 | ECG ---
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
--- NOTE | 2024-07-09 07:46 | ECG ---
[facility] Test Date: 2024-07-08 Test Time: 15:29:51 Pat Name: LARON GARCIA Department: Emergency Room: [address] [place] [address] A Gender: M Site Inspector: Praveen : 1965 Requested By: TRACEY REBOLLEDO Order Number: [id number] Reading MD: Toby Bradley Measurements Intervals [place] Rate: 83 P: 50 MI: 146 QRS: -19 QRSD: 96 T: 37 QT: 406 QTc: 477 Interpretive Statements Sinus rhythm Borderline left axis deviation Low voltage, precordial leads Abnormal R-wave progression, late transition Borderline prolonged QT interval Artifact in lead(s) I,II,III,aVR,aVL,V6 Electronically Signed On 07-09-2024 13:12:42 PST by Toby Bradley Please click the below link to view image of tracing.
--- NOTE | 2024-07-09 07:50 | ECG ---
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
[2024-07-09] MEDS: SEVELAMER 800 MG TAB PO SCH (08:42)
[2024-07-09] MEDS: HYDROcodone-ACET 5/325MG TAB PO PRN (10:00)
--- NOTE | 2024-07-09 10:08 | DVHINCON2 ---
Date Seen: Jul 09, 2024 Referring Physician JAIME De La Garza Reason for Consultation Hypotension History of Present Illness This is a 58-year-old primarily Kyrgyz-speaking male patient who presents to the emergency room for multiple chief complaints including flu-like symptoms, chest pain, and right thigh pain. The patient's who was at bedside confirms that the patient began having flu-like symptoms such as fever and nonproductive cough for three days prior to emergency room arrival. The patient also mentions chest pain which began yesterday while he was at dialysis. He describes it as unprovoked, sharp in nature, midsternal with radiation across his bilateral upper back. Associated symptoms include shortness of breath. The patient's also mentions that while the patient was at dialysis yesterday his blood pressure was noted to be low and so dialysis was not able to be done. The patient's states that the patient's right thigh became swollen and discolored yesterday for unknown reasons. He comes now to the emergency room from the dialysis center. Cardiology has now been consulted for hypotension. Initial twelve lead electrocardiogram reveals normal sinus rhythm with nonspecific ST segment changes to lateral lead (aVL) and baseline wander. Initial troponin level of 32ng/L with flat trend thereafter. The patient and his are very poor historians. Per the patient, he has mostly been seen at [facility]. He denies ever being seeing at this facility. Significant past medical history per patient includes coronary artery disease status post CABG (unknown how many vessels)in 2021, hypertension, hyperlipidemia, end-stage renal disease on hemodialysis, renal carcinoma status post left nephrectomy, asthma, COPD, and morbid obesity. The patient reports he follows up with a liner helper in the outpatient setting, but does not remember their name at this time. Of note, patient external medication list significant for Eliquis therapy. Patient and unsure of why patient takes Eliquis, denied any previous history of atrial fibrillation or DVT/PE. Past Medical History Past medical history reviewed. No other significant than mentioned above. Past Surgical History CABG in 2021 Left nephrectomy Left arm fistula Family History Family history reviewed. Social History Denies the use of tobacco, alcohol or illicit drugs. Allergies: Coded Allergies: NO KNOWN ALLERGIES (Unverified , 07/08/24) Home Meds Home medications reviewed. Current Medications Current Medications Medications (Trade) Dose Ordered Sig/Rey Route PRN Reason Start Time Stop Time Status Last Admin Cefepime HCl 50 ml @ 12.5 mls/hr Q8HR IV 07/08/24 22:00 07/08/24 16:54 DC Vancomycin HCl 0 ml @ 0 mls/hr UD IV 07/08/24 17:00 Norepinephrine Bitartrate 250 ml @ 3.75 mls/hr Q24H IV 07/08/24 17:15 07/09/24 10:00 Phenylephrine HCl 250 ml @ 30 mls/hr Q8H20M IV 07/08/24 23:00 07/09/24 03:20 Sevelamer HCl (Renagel) 800 mg TIDWM PO 07/09/24 08:00 07/09/24 08:42 Multivit/Ca Carb/ B Cmplx/FA/Prenat (Nephro-Kwaku Tablet) 1 tab DAILY PO 07/09/24 10:00 Atorvastatin Calcium (Lipitor) 20 mg HS PO 07/09/24 22:00 Levofloxacin 50 ml @ 50 mls/hr Q48H IV 07/10/24 02:00 Sodium Chloride (Saline Lock Ns) 10 ml Q8HR IV 07/09/24 06:00 07/09/24 06:05 Acetaminophen/ Hydrocodone Bitart (Granby 5/325MG Tab) 1 tab Q4HP PRN PO MODERATE PAIN (4-6 PAIN SCALE) 07/09/24 01:45 07/09/24 10:00 Ondansetron HCl (Zofran) 4 mg Q4HP PRN IV NAUSEA / VOMITING 07/09/24 01:45 Docusate Sodium (Colace Capsule) 100 mg BIDPRN PRN PO FOR CONSTIPATION 07/09/24 01:45 Nitroglycerin (Ntrostat Sublingual) 0.4 mg Q5MINP PRN SL FOR CHEST PAIN 07/09/24 03:15 Morphine Sulfate 2 mg Q30M PRN IV FOR CHEST PAIN 07/09/24 03:15 07/09/24 06:32 Review of Systems Constitutional: Generalized weakness Ears, Nose, & Throat: No symptom reported Eyes: No symptom reported Neurological: No symptoms reported Pulmonary/Respiratory: No symptoms reported Cardiovascular: Chest pain Gastrointestinal: No symptom reported Genitourinary: No symptom reported Musculoskeletal: No symptom reported Skin: No symptom reported Psychiatric: No symptom reported Endocrine: No symptom reported Hematologic/Lymphatic: No symptom reported Vital Signs Vital Signs Date Time Temp Pulse Resp B/P (MAP) Pulse Ox O2 Delivery O2 Flow Rate FiO2 07/09/24 10:00 98/62 07/09/24 07:45 88 12 99 07/08/24 19:30 Nasal Cannula* 4 36 07/08/24 19:30 98.9 98.9 Physical Exam General Appearance: Cooperative. Morbidly obese Pulmonary/Respiratory: Clear, bilateral breaths sounds. Cardiovascular/Chest: Regular rate and rhythm. Peripheral Pulses: 2+ Radial (R). 2+ Radial (L). 1+ Pedal (R). 1+ Pedal (L) Abdominal Exam: Normal bowel sounds. Soft, non-tender. Ankle Exam: Bilateral 3+ ankle edema Lower extremities: Significant edema noted to bilateral legs, more significant on right lower extremity Neuro/Mental Status: A/OX4, coherent. Thoughts/Psych: Normal thought pattern. Appropriate mood and affect. Good judgment and insight. Appearance: No acute distress. Skin Exam: Ecchymosis to right upper thigh Labs/Diagnostic Data Labs Test 07/09/24 05:49 07/08/24 22:27 07/08/24 21:11 07/08/24 17:54 Range/Units White Blood Count 3.9 #L 4.4-10.8 10^3/uL Red Blood Count 2.26 L 4.5-5.90 10^6/uL Hemoglobin 8.2 L 13.5-17.5 g/dL Hematocrit 24.8 L 41.0-53.0 % Mean Corpuscular Volume 109.7 H 80.0-100.0 fL Mean Corpuscular Hemoglobin 36.2 H 28.0-32.0 pg Mean Corpuscular Hemoglobin Concent 33.0 32.0-36.0 g/dL Red Cell Distribution Width 16.3 H 11.8-14.3 % Platelet Count 59 L 140-450 10^3/uL Mean Platelet Volume 10.5 6.9-10.8 fL Neutrophils (%) (Auto) 75.9 37.0-80.0 % Lymphocytes (%) (Auto) 14.6 10.0-50.0 % Monocytes (%) (Auto) 6.5 0.0-12.0 % Eosinophils (%) (Auto) 2.9 0.0-7.0 % Basophils (%) (Auto) 0.1 0.0-2.0 % Neutrophils # (Auto) 3.0 1.6-8.6 10 ^3/uL Lymphocytes # (Auto) 0.6 0.4-5.4 10 ^3/uL Monocytes # (Auto) 0.3 0-1.3 10 ^3/uL Eosinophils # (Auto) 0.1 0-0.8 10 ^3/uL Basophils # (Auto) 0 0-0.2 10 ^3/uL Nucleated Red Blood Cells 7.0 % Creatinine 6.53 H 0.700-1.30 mg/dL Glomerular Filtration Rate Calc 9 >90 mL/min Random Vancomycin Level 17.1 H 5-10 ug/mL POC Glucose 78 70-106 mg/dl Lactic Acid Level 3.8 *H 0.4-2.0 mmol/L Troponin I High Sensitivity 33 </=54 ng/L Test 07/08/24 15:22 07/08/24 15:07 Range/Units Differential Total Cells Counted 100.0 100 Neutrophils % (Manual) 53 37.0-80.0 Band Neutrophils % (Manual) 11 Lymphocytes % (Manual) 34 10.0-50.0 Monocytes % (Manual) 2 0-12 Eosinophils % (Manual) 0 0-7 Basophils % (Manual) 0 0.0-2.0 Metamyelocytes % (manual) 0 Myelocytes % (Manual) 0 Promyelocytes % (Manual) 0 Blast Cells % (Manual) 0 Reactive Lymphocytes 0 Platelet Estimate Decreased Prothrombin Time 17.4 H 9.3-11.8 sec Prothrombin Time INR 1.71 H 0.9-1.15 Activated Partial Thromboplast Time 32.6 24.5-34.5 SEC Sodium Level 137 136-145 mmol/L Potassium Level 4.1 3.5-5.1 mmol/L Chloride Level 103 98-107 mmol/L Carbon Dioxide Level 23 20-31 mmol/L Anion Gap 11 5-15 Blood Urea Nitrogen 37 H 9-23 mg/dL BUN/Creatinine Ratio 6.5 L 10.0-20.0 Serum Glucose 80 74-106 mg/dL Calcium Level 7.7 L 8.7-10.4 mg/dL Total Bilirubin 0.6 0.2-1.0 mg/dL Aspartate Amino Transferase (AST) 244 H 13-40 U/L Alanine Aminotransferase (ALT) 561 H 7-40 U/L Alkaline Phosphatase 105 46-116 U/L Creatine Kinase 114 46-171 U/L Total Protein 5.4 L 5.7-8.2 g/dL Albumin 3.5 3.2-4.8 g/dL Influenza Type A Antigen Negative Negative Influenza Type B Antigen Negative Negative SARS-CoV-2 Antigen (Rapid) Negative NEGATIVE Microbiology Date/Time Source Procedure Growth Status 07/08/24 18:00 Blood Blood Culture - Preliminary Resulted Assessment Hypotension secondary to septic shock Coronary artery disease status post CABG in 2021 Rule out structural heart disease Rule out right lower extremity necrotizing fasciitis History of hypertension Hyperlipidemia Hyperkalemia Bacteremia Acute anemia Thrombocytopenia Transaminitis End-stage renal disease on hemodialysis Renal cell carcinoma status post left nephrectomy COPD Asthma Morbid obesity Plan/Recommendation We will continue with the following plan/recommendations (): * Echocardiogram to evaluate cardiac function * Vasopressors for hemodynamic support * Closely monitor H&H, platelet count * Closely monitor right lower extremity * Asses for any changes or progression * Cardiac surveillance: Notify cardio team of any ECG changes * Obtain medical records from [facility] * Pulmonology and nephrology recommendations Patient seen and examined at bedside with . Thank you for allowing us to care for this patient. Please call with any questions or concerns. Critical care time spent: 44 minutes This medical document was created using an electronic medical record system with voice recognition software and computerized dictation system. Although this document has been carefully reviewed, there might still be some phonetic and typographical errors. Occasional wrong-word or ``sound-alike substitutions may have occurred due to the inherent limitations of voice recognition software. These areas are purely typographical due to imperfections of the software programs and do not reflect any compromise in the patient's medical care. Please read the chart carefully and recognize, using context, where these substitutions have occurred. Plan discussed with: Patient NYHA Physical activity limitations: NA Date of Service: Jul 09, 2024 Billing Provider: BLADIMIR BORDEN Cardiology Common Codes: 10723-DOGDSIV INP/OBS CARE (High) Cardiology Consultation Codes: 86134-[id number] CONSULT <45MIN BLADIMIR BORDEN Jul 09, 2024 10:08
--- NOTE | 2024-07-09 10:26 | DVHPN2 ---
Subjective 58 year old male on with ESRD on HD says he woke up yesterday with right leg pain, went to dialysis and from there he was sent here to ER. He did not get dialysis yesterday. He was also having chest pain Here he was septic, was started on IV antibiotics, and Levophed This morning, I examined the patient in ER bed 6, c/o increased pain in his right leg, and daughter at the bedside, stated he did not have a fall CT of the leg showed no Fx, no fluid collection I Called Dr. Mcbride for possible necrotizing fasciitis, he examined the patient, recommended IV antibiotics and possible surgical intervention Changes from previous H/P or p: Changes Eyes: No Pain, No Vision change, No Conjunctivae inflammation, No Eyelid inflammation, No Other, No Redness ENT: No Ear pain, No Ear discharge, No Nose pain, No Nose discharge, No Nose congestion, No Mouth pain, No Mouth swelling, No Throat pain, No Throat swelling, No Other Cardiovascular: Chest Pain; No Palpitations, No Orthopnea, No Paroxysmal Noc. Dyspnea, No Edema, No Lt Headedness, No Other Respiratory: Cough; No Dry, No Shortness of breath, No SOB with excertion, No Wheezing, No Hemoptysis, No Pleuritic Pain, No Sputum, No Other Gastrointestinal: No Nausea, No Vomiting, No Abdominal Pain, No Diarrhea, No Constipation, No Melena, No Hematochezia, No Other Genitourinary: No Dysuria, No Frequency, No Incontinence, No Hematuria, No Retention, No Other Musculoskeletal: No other, No neck pain, No shoulder pain, No arm pain, No back pain, No hand pain, No leg pain, No foot pain Skin: No Rash, No Lesions, No Jaundice, No Bruising, No Other Objective Vitals Vital Signs Date Time Temp Pulse Resp B/P (MAP) Pulse Ox O2 Delivery O2 Flow Rate FiO2 07/09/24 10:00 98/62 07/09/24 07:45 88 12 99 07/08/24 19:30 Nasal Cannula* 4 36 07/08/24 19:30 98.9 98.9 Intake/Output Intake and Output 07/09/24 07:00 Intake Total 3172.75 ml Balance 3172.75 ml Intake IV Total 3172.75 ml General Appearance: Alert, Other (confused) Lungs: Other (Rhonchi and crackles) Cardiovascular: Regular rate, Normal S1, Normal S2 Abdomen: Normal bowel sounds, Soft, No tenderness Extremities: Other (R thigh severe edema and tenderness and erythema with tight skin) Medications Current Medications Medications Dose Ordered Sig/Rey Route Start Time Stop Time Status Last Admin Dose Admin Vancomycin HCl 0 ml @ 0 mls/hr UD IV 07/08/24 17:00 Norepinephrine Bitartrate 250 ml @ 3.75 mls/hr Q24H IV 07/08/24 17:15 07/09/24 10:00 45 MLS/HR Phenylephrine HCl 250 ml @ 30 mls/hr Q8H20M IV 07/08/24 23:00 07/09/24 03:20 48.75 MLS/HR Sevelamer HCl 800 mg TIDWM PO 07/09/24 08:00 07/09/24 08:42 800 MG Multivit/Ca Carb/ B Cmplx/FA/Prenat 1 tab DAILY PO 07/09/24 10:00 Atorvastatin Calcium 20 mg HS PO 07/09/24 22:00 Levofloxacin 50 ml @ 50 mls/hr Q48H IV 07/10/24 02:00 Sodium Chloride 10 ml Q8HR IV 07/09/24 06:00 07/09/24 06:05 10 ML Acetaminophen/ Hydrocodone Bitart 1 tab Q4HP PRN PO 07/09/24 01:45 07/09/24 10:00 1 TAB Ondansetron HCl 4 mg Q4HP PRN IV 07/09/24 01:45 Docusate Sodium 100 mg BIDPRN PRN PO 07/09/24 01:45 Nitroglycerin 0.4 mg Q5MINP PRN SL 07/09/24 03:15 Morphine Sulfate 2 mg Q30M PRN IV 07/09/24 03:15 07/09/24 06:32 2 MG Laboratory Results Laboratory Tests 07/08/24 15:22 07/09/24 05:49 Chemistry Test 07/08/24 15:22 Albumin 3.5 g/dL (3.2-4.8) Calcium Level 7.7 mg/dL (8.7-10.4) L Total Protein 5.4 g/dL (5.7-8.2) L Coagulation Test 07/08/24 15:22 Prothrombin Time 17.4 sec (9.3-11.8) H Prothrombin Time INR 1.71 (0.9-1.15) H Activated Partial Thromboplast Time 32.6 SEC (24.5-34.5) LFT Test 07/08/24 15:22 Alanine Aminotransferase (ALT) 561 U/L (7-40) H Alkaline Phosphatase 105 U/L (46-116) Aspartate Amino Transferase (AST) 244 U/L (13-40) H Total Bilirubin 0.6 mg/dL (0.2-1.0) Microbiology Microbiology Date/Time Source Procedure Growth Status 07/08/24 18:00 Blood Blood Culture - Preliminary Resulted Assessment/Plan Assessment/Plan Severe sepsis with septic shock most likely due to right thigh infection possibly necrotizing fasciitis and also possible underlying pneumonia Bacteremia with Gram-negative rods Rule out RLE necrotizing fasciitis Metabolic acidosis ESRD on HD h/o kidney CA s/p nephrectomy Hyperkalemia Thrombocytopenia Possible LLL pneumonia ?Left pleural effusion CAD Mixed hyperlipidemia DM2 Obesity PLAN: 07/09/2024: Broad spectrum antibiotics Surgical consult, Dr. Ghotra Nephrology consult Hyperkalemia protocol Emergency hyperkalemia protocol, D50, insulin, calcium gluconate, Sodium bicarbonate IV fluids D5W to prevent hypoglycemia Vasopressors as needed No anticoagulation due to the thrombocytopenia NPO for possible surgical intervention after hemodialysis tonight Discussed with Dr. Mauro, he is trying to get hemodialysis done as soon as possible Discussed with Dr. Ghotra, he is planning on possible surgical intervention on his right leg tonight after dialysis Consult infectious disease Blood culture shows Gram-negative rods Get urine culture Full code Prognosis is guarded Discussed with the family at the bedside Plan discussed with: Patient My Orders Orders - DG AQUINO MD Procedure Category Date Status Time * Surgical Consult CONS 07/09/24 Transmitted Consult CONS 07/09/24 Transmitted Vascular/Endovascular 10:18 Date of Service: Jul 09, 2024 Billing Provider: DG AQUINO MD Common Visit Codes: NOT BILLABLE DG AQUINO MD Jul 09, 2024 10:26
[2024-07-09] MEDS: B-COMPLEX W/ C & FOLIC ACID(NEPHROVITE TAB) PO SCH (11:47)
--- NOTE | 2024-07-09 13:58 | DVHCONRES ---
Date Seen: Jul 09, 2024 Resident Creating Document: HERBERT LAMAS Jr., MD Referring Physician Alex Reason for Consultation Right leg cellulitis History of Present Illness The patient is a 58-year-old male with past medical history of kidney cancer status post nephrectomy on hemodialysis, Coronary artery disease, and hyperlipidemia who presented to [facility] ED with complaint of chest pain. Patient reports symptoms progressively get worse with fever, nonproductive cough, right thigh redness/tenderness, getting worse that prompted this visit. Events over the last 48 hours he developed significantly worsening pain in the right leg has been difficult to walk onspecifically in the thigh. Patient has described feeling weak and tired with fevers. Past Medical History Hyperlipidemia, chronic kidney disease dialysis, prior nephrectomy, diabetes Past Surgical History Left AV fistula Family History Noncontributory Social History Nonsmoker nondrinker. Allergies: Coded Allergies: NO KNOWN ALLERGIES (Unverified , 07/08/24) Current Medications Current Medications Medications (Trade) Dose Ordered Sig/Rey Route PRN Reason Start Time Stop Time Status Last Admin Cefepime HCl 50 ml @ 12.5 mls/hr Q8HR IV 07/08/24 22:00 07/08/24 16:54 DC Vancomycin HCl 0 ml @ 0 mls/hr UD IV 07/08/24 17:00 Norepinephrine Bitartrate 250 ml @ 3.75 mls/hr Q24H IV 07/08/24 17:15 07/09/24 10:00 Phenylephrine HCl 250 ml @ 30 mls/hr Q8H20M IV 07/08/24 23:00 07/09/24 03:20 Sevelamer HCl (Renagel) 800 mg TIDWM PO 07/09/24 08:00 07/09/24 11:47 Multivit/Ca Carb/ B Cmplx/FA/Prenat (Nephro-Kwaku Tablet) 1 tab DAILY PO 07/09/24 10:00 07/09/24 11:47 Atorvastatin Calcium (Lipitor) 20 mg HS PO 07/09/24 22:00 Levofloxacin 50 ml @ 50 mls/hr Q48H IV 07/10/24 02:00 Sodium Chloride (Saline Lock Ns) 10 ml Q8HR IV 07/09/24 06:00 07/09/24 06:05 Acetaminophen/ Hydrocodone Bitart (Jay 5/325MG Tab) 1 tab Q4HP PRN PO MODERATE PAIN (4-6 PAIN SCALE) 07/09/24 01:45 07/09/24 10:00 Ondansetron HCl (Zofran) 4 mg Q4HP PRN IV NAUSEA / VOMITING 07/09/24 01:45 Docusate Sodium (Colace Capsule) 100 mg BIDPRN PRN PO FOR CONSTIPATION 07/09/24 01:45 Nitroglycerin (Ntrostat Sublingual) 0.4 mg Q5MINP PRN SL FOR CHEST PAIN 07/09/24 03:15 Morphine Sulfate 2 mg Q30M PRN IV FOR CHEST PAIN 07/09/24 03:15 07/09/24 06:32 Vasopressin 20 units/Sodium Chloride 100 ml @ 9 mls/hr Q11H7M IV 07/09/24 13:15 Review of Systems Systems review otherwise negative than what is in the HPI. Vital Signs Vital Signs Date Time Temp Pulse Resp B/P (MAP) Pulse Ox O2 Delivery O2 Flow Rate FiO2 07/09/24 13:44 87/54 07/09/24 12:30 85 17 99 07/09/24 08:05 Nasal Cannula* 2 28 07/09/24 08:05 97.9 97.9 Physical Exam Head eyes ears nose and throat exam as are nonicteric conjunctiva was pink neck was supple no JVD no lymphadenopathy no carotid bruits lungs are clear to auscultation heart was regular rate and rhythm abdomen soft and nontender with no pulsatile abdominal masses or bruits lower extremities he was of palpable femoral pulses palpable pedal pulses bilaterally however his right leg is moderately swollen and a thigh his ecchymosis of the thigh and into the calf is warm to the touch no wounds noted. The area of ecchymosis was marked for further evaluation in the future to monitor progression of any underlying soft tissue infection. Labs/Diagnostic Data Labs Test 07/09/24 05:49 07/08/24 22:27 07/08/24 21:11 07/08/24 17:54 Range/Units White Blood Count 3.9 #L 4.4-10.8 10^3/uL Red Blood Count 2.26 L 4.5-5.90 10^6/uL Hemoglobin 8.2 L 13.5-17.5 g/dL Hematocrit 24.8 L 41.0-53.0 % Mean Corpuscular Volume 109.7 H 80.0-100.0 fL Mean Corpuscular Hemoglobin 36.2 H 28.0-32.0 pg Mean Corpuscular Hemoglobin Concent 33.0 32.0-36.0 g/dL Red Cell Distribution Width 16.3 H 11.8-14.3 % Platelet Count 59 L 140-450 10^3/uL Mean Platelet Volume 10.5 6.9-10.8 fL Neutrophils (%) (Auto) 75.9 37.0-80.0 % Lymphocytes (%) (Auto) 14.6 10.0-50.0 % Monocytes (%) (Auto) 6.5 0.0-12.0 % Eosinophils (%) (Auto) 2.9 0.0-7.0 % Basophils (%) (Auto) 0.1 0.0-2.0 % Neutrophils # (Auto) 3.0 1.6-8.6 10 ^3/uL Lymphocytes # (Auto) 0.6 0.4-5.4 10 ^3/uL Monocytes # (Auto) 0.3 0-1.3 10 ^3/uL Eosinophils # (Auto) 0.1 0-0.8 10 ^3/uL Basophils # (Auto) 0 0-0.2 10 ^3/uL Nucleated Red Blood Cells 7.0 % Creatinine 6.53 H 0.700-1.30 mg/dL Glomerular Filtration Rate Calc 9 >90 mL/min Random Vancomycin Level 17.1 H 5-10 ug/mL POC Glucose 78 70-106 mg/dl Lactic Acid Level 3.8 *H 0.4-2.0 mmol/L Troponin I High Sensitivity 33 </=54 ng/L Test 07/08/24 15:22 07/08/24 15:07 Range/Units Differential Total Cells Counted 100.0 100 Neutrophils % (Manual) 53 37.0-80.0 Band Neutrophils % (Manual) 11 Lymphocytes % (Manual) 34 10.0-50.0 Monocytes % (Manual) 2 0-12 Eosinophils % (Manual) 0 0-7 Basophils % (Manual) 0 0.0-2.0 Metamyelocytes % (manual) 0 Myelocytes % (Manual) 0 Promyelocytes % (Manual) 0 Blast Cells % (Manual) 0 Reactive Lymphocytes 0 Platelet Estimate Decreased Prothrombin Time 17.4 H 9.3-11.8 sec Prothrombin Time INR 1.71 H 0.9-1.15 Activated Partial Thromboplast Time 32.6 24.5-34.5 SEC Sodium Level 137 136-145 mmol/L Potassium Level 4.1 3.5-5.1 mmol/L Chloride Level 103 98-107 mmol/L Carbon Dioxide Level 23 20-31 mmol/L Anion Gap 11 5-15 Blood Urea Nitrogen 37 H 9-23 mg/dL BUN/Creatinine Ratio 6.5 L 10.0-20.0 Serum Glucose 80 74-106 mg/dL Calcium Level 7.7 L 8.7-10.4 mg/dL Total Bilirubin 0.6 0.2-1.0 mg/dL Aspartate Amino Transferase (AST) 244 H 13-40 U/L Alanine Aminotransferase (ALT) 561 H 7-40 U/L Alkaline Phosphatase 105 46-116 U/L Creatine Kinase 114 46-171 U/L Total Protein 5.4 L 5.7-8.2 g/dL Albumin 3.5 3.2-4.8 g/dL Influenza Type A Antigen Negative Negative Influenza Type B Antigen Negative Negative SARS-CoV-2 Antigen (Rapid) Negative NEGATIVE Microbiology Date/Time Source Procedure Growth Status 07/08/24 18:00 Blood Blood Culture - Preliminary Resulted Bilateral lower extremity venous duplex Clinical History: edema r/o dvt Comparison: None Technique: Duplex Doppler evaluation of the deep venous systems of both lower extremities from the common femoral veins to the popliteal veins including color Doppler and spectral/pulsed waveform analysis was performed. Findings: RIGHT SIDE: The common femoral vein demonstrates appropriate compressibility and waveform variability. There is compressibility/patency of the great saphenous vein at the proximal thigh. The femoral vein demonstrates appropriate compressibility and waveform variability. The deep femoral vein demonstrates appropriate compressibility and waveform variability. The popliteal vein patient unable to tolerate compression of the popliteal vein and therefore not visualized. Patient unable to tolerate compression of the trifurcation region and therefore not imaged LEFT SIDE: The common femoral vein demonstrates appropriate compressibility and waveform variability. There is compressibility/patency of the great saphenous vein at the proximal thigh. The femoral vein demonstrates appropriate compressibility and waveform variability. The deep femoral vein demonstrates appropriate compressibility and waveform variability. The popliteal vein demonstrates appropriate compressibility and waveform variability. There is normal compressibility at the tibioperoneal trunk. Impression: 1. No right or left femoropopliteal venous thrombosis. 2. Right popliteal trifurcation region not evaluated because of patient's unable to tolerate compression. INDICATION: bilateral thighs tender,m swollen, r/o necrotizing fascitis COMPARISON: None TECHNIQUE: CT of the right was performed without contrast. Volume transverse images were obtained and reconstructed in multiple planes using bone and soft tissue algorithms. CONTRAST: None Radiation Dose Information: CT Dose: CTDI volume is 12.86 mGy. Dose-length product is 1061.02 mGy*cm FINDINGS: The alignment is normal. The joint spaces are normal. Small bilateral joint effusions of the knee There is no fracture, dislocation, or focal osseous lesions. The soft tissues are normal. No gas in the soft tissues. Subcutaneous edema right worse than left. No drainable fluid collections. IMPRESSION: Subcutaneous edema right worse than left No gas in the soft tissues. Small bilateral effusions in the knee. Assessment Right leg swelling with underlying sepsis Continue broad-spectrum antibiotics. Continue to monitor right leg closely for any progression of any possible soft tissue infection which would require surgical debridement. Plan/Recommendation Right leg swelling with underlying sepsis Continue broad-spectrum antibiotics. Continue to monitor right leg closely for any progression of any possible soft tissue infection which would require surgical debridement. Plan discussed with: Patient HERBERT LAMAS Jr., MD Jul 09, 2024 13:58
[2024-07-09] MEDS: VASOPRESSIN 20 UNITS in SODIUM CHL 0.9% 99 ML IV SCH (14:21)
[2024-07-09 14:56] LABS: Albumin 3.5 g/dL (3.2-4.8); Alkaline Phosphatase 101 U/L (46-116); Anion Gap 20 (5-15); BUN/Creatinine Ratio 8.4 (10.0-20.0); Bilirubin, Total 1.1 mg/dL (0.2-1.0); Chloride 105 mmol/L (98-107); Magnesium 2.1 mg/dL (1.6-2.6); Sodium 139 mmol/L (136-145)
[2024-07-09 15:04] LABS: Alanine Aminotransferase 563 U/L (7-40); Aspartate Aminotransferase 306 U/L (13-40); Blood Urea Nitrogen 59 mg/dL (9-23); Calcium 7.2 mg/dL (8.7-10.4); Carbon Dioxide 14 mmol/L (20-31); Total Protein 5.3 g/dL (5.7-8.2)
[2024-07-09 15:09] LABS: Glucose 24 mg/dL (74-106); Potassium 5.8 mmol/L (3.5-5.1)
[2024-07-09] MEDS: DEXTROSE (50%) 50ML SYRG IV ONE ×4 (15:19→23:09)
[2024-07-09] MEDS: DEXTROSE 50% SYRINGE 50 ML IV ONE (15:22)
[2024-07-09] MEDS: NOREPINEPHRINE BITARTRATE 32 MG in SODIUM CHL 0.9% 218 ML IV SCH (16:31)
[2024-07-09] MEDS: D5W 5% 1,000 ML IV SCH (16:32)
[2024-07-09 16:33] LABS: Base Excess -14.4 mmol/L (-2.0-3.0)
--- NOTE | 2024-07-09 16:49 | DVH ---
CHEST RADIOGRAPH Indication: SOB Technique: Single frontal view of the chest was obtained Comparison: XY CHEST PORTABLE on DOS: 07/08/24 FINDINGS: Lines and Tubes: None Lungs: Left mid and lower lung zone opacification with indistinctness of the left hemidiaphragm. Mil d interstitial prominence. Bronchovascular crowding due to low lung volumes. No pneumothorax. Cardiomediastinal contours: Limited evaluation of the Heart size due to opacification of the left mid and lower lung zone. Midline sternotomy wires with surgical clips are noted consistent with prior hi story of CABG. Bones: No acute osseous abnormality. IMPRESSION: Left mid and lower lung zone opacification which may represent pneumonia with possible small left-shona ed pleural effusion.
[2024-07-09] MEDS: PHENYLEPHRINE INJ 80 MG in SODIUM CHL 0.9% 242 ML IV SCH (17:00)
[2024-07-09 17:02] LABS: Hematocrit 26.1 % (41.0-53.0); Hemoglobin 8.4 g/dL (13.5-17.5); Mean Corpuscular Hemoglobin 36.2 pg (28.0-32.0); Mean Corpuscular Volume 113.1 fL (80.0-100.0); Platelet Count (auto) 47 10^3/uL (140-450); Red Blood Cells 2.31 10^6/uL (4.5-5.90); Red Cell Distribution Width 16.6 % (11.8-14.3); White Blood Cell 6.9 10^3/uL (4.4-10.8)
[2024-07-09 17:18] LABS: Albumin 3.5 g/dL (3.2-4.8); Alkaline Phosphatase 101 U/L (46-116); Anion Gap 19 (5-15); BUN/Creatinine Ratio 7.4 (10.0-20.0); Basophils % (manual) 0 (0.0-2.0); Blast Cells 0; Chloride 104 mmol/L (98-107); Eosinophils % (manual) 0 (0-7); INR 2.9 (0.9-1.15); Magnesium 2.1 mg/dL (1.6-2.6); Metamyelocytes % 0; Myelocytes % 0; Partial Thromboplastin Time 39.9 SEC (24.5-34.5); Promyelocytes % 0; Prothrombin Time 28.4 sec (9.3-11.8); Reactive Lymphocytes 0; Sodium 138 mmol/L (136-145)
[2024-07-09 17:24] LABS: Alanine Aminotransferase 611 U/L (7-40); Aspartate Aminotransferase 348 U/L (13-40); Blood Urea Nitrogen 53 mg/dL (9-23); Calcium 7.3 mg/dL (8.7-10.4); Carbon Dioxide 15 mmol/L (20-31); Lactic Acid w/Reflex 9.6 mmol/L (0.4-2.0); Phosphorus 5.9 mg/dL (2.4-5.1); Total Protein 5.6 g/dL (5.7-8.2)
[2024-07-09 17:25] LABS: Glucose 48 mg/dL (74-106)
[2024-07-09] MEDS: SODIUM BICARB 8.4% 50Meq/50ml SYR Vial IV ONE ×4 (17:25→21:29)
[2024-07-09] MEDS: ETOMIDATE (2MG/ML) 20ML VIAL IV ONE ×2 (17:30→17:56)
[2024-07-09] MEDS: ROCURONIUM 10MG/ML 10ML VIAL IV ONE ×3 (17:30→20:14)
[2024-07-09] MEDS: PANTOPRAZOLE 40 MG/10 ML VIAL INJ IV ONE (17:35)
[2024-07-09] MEDS: HYDROCORTISONE SOD SUCC 100 MG/2ML INJ VIAL IV SCH (17:56)
[2024-07-09] MEDS: ACCU-CHEK COMFORT CURVE STRIP VI SCH (17:56)
[2024-07-09] MEDS: HYDROCORTISONE SOD SUCC 100 MG/2ML INJ VIAL ONE (17:57)
[2024-07-09] MEDS: fentaNYL Drip 2500mCg/250mlNS 250 ML IV SCH (18:00)
[2024-07-09 18:08] LABS: Band Neutrophils % (manual) 16; Lymphocytes % (manual) 31 (10.0-50.0); Monocytes % (manual) 4 (0-12); Platelet Estimate Decreased
[2024-07-09] MEDS: SODIUM CHL 0.9% 1000 ML BAG XX ONE (18:30)
--- NOTE | 2024-07-09 19:17 | DVHNC2 ---
Procedure - ULTRASOUND-GUIDED RIGHT SUBCLAVIAN INTERNAL JUGULAR CENTRAL VENOUS CANNULATION CPT Codes: 59037 (ultrasound guidance) 14896 (insertion of non-tunneled centrally inserted central venous catheter) 06792 (CXR interpretation) Time out time: 1830 pm Patient medications and allergies reviewed. The risks and benefits of the procedure and the sedation options and risk were discussed with the patient's healthcare proxy. All questions were answered and informed consent was obtained. Patient identification and proposed procedure were verified prior to the procedure by the physician, and a nurse in the patient's room. The heart rate, respiratory rate, oxygen saturations, blood pressure, adequacy of pulmonary ventilation, and response to care were monitored throughout the procedure. The physical status of the patient was reassessed after the procedure. Date: 07/09/24 PHYSICIAN: Eb Bermudez PREOPERATIVE DIAGNOSIS: Septic shock, in need of additional venous access POSTOPERATIVE DIAGNOSIS: Septic shock; in need of additional venous access. PROCEDURE PERFORMED: Limited Ultrasound-guided RIGHT SUBCLAVIAN jugular central line placement. ANESTHESIA: 2 mL of 1% lidocaine plain. ESTIMATED BLOOD LOSS: less than 5 mL. SPECIMENS: None. COMPLICATIONS: None. INDICATIONS FOR PROCEDURE: The patient is in need of large bore IV access for administration of fluids, including blood products and vasoactive drugs, possible transvenous cardiac pacing and CVP monitoring for hemodynamic instability. DESCRIPTION OF PROCEDURE IN DETAIL: The patient was lying in the Trendelenburg position with head turned 30 degrees away from the insertion site. The skin was thoroughly sponged with chlorhexidine and allowed to dry. All persons involved were shielded with hair nets, face masks and sterile gowns. With sterile-gloved hands the right neck area was draped with the large disposable sterile field provided in the pre-manufactured kit. The skin and subcutaneous tissues superficial to the RIGHT SUBCLAVIAN vein were anesthetized with 2 mL of 1% lidocaine. The RIGHT SUBCLAVIAN vein was identified on ultrasound using the linear ultrasound probe in the transverse orientation. The subclavian artery was identified and avoided utilizing color-flow. The subclavian vein was then placed in the center of the ultrasound field and compressed for patency. A movement artifact was identified as the needle was advanced through the skin and advanced toward the vessel. A real time hyperechoic signal revealed visualization of vascular needle entry into the lumen as blood was noted to flashback in the syringe. I was unable to advance guidewire. Procedure was aborted. EB BERMUDEZ MD Jul 09, 2024 19:17
--- NOTE | 2024-07-09 19:18 | DVHNC2 ---
Procedure - Radial arterial line procedure note Indication: Hemodynamic monitoring, frequent blood ABG draws. [employer] Reading Teacher: Dr. Bermudez Date: 07/09/2024 Time: 1855 pm Consent: Consent was obtained from patient's healthcare proxy prior to procedure. Indications, risks, and benefits were explained at length. Patient medications and allergies reviewed. The risks and benefits of the procedure and the sedation options and risk were discussed with the patient's healthcare proxy. All questions were answered and informed consent was obtained. Patient identification and proposed procedure were verified prior to the procedure by the physician, and a nurse in the patient's room. The heart rate, respiratory rate, oxygen saturations, blood pressure, adequacy of pulmonary ventilation, and response to care were monitored throughout the procedure. The physical status of the patient was reassessed after the procedure. Procedure summary: A time-out was performed. My hands were washed immediately prior to the procedure. I wore surgical cap, mask with protective eyewear, sterile gown and sterile gloves throughout the procedure. After an Tima test was performed to ensure adequate perfusion, the RIGHT wrist was prepped using chlorhexidine scrub and draped in sterile fashion using sterile towels. The radial pulse was identified with the use of ultrasound. The wrist was positioned in the usual fashion. Anesthesia was achieved using 1% lidocaine. Using the radial arterial line kit, needle was inserted into the radial artery using ultrasound guidance. Arterial blood flow was seen to pulsate in the flash chamber. The internal guidewire was advanced easily into the radial artery. The catheter was then advanced over the wire and the needle and wire were withdrawn. The catheter was sutured into place with 1 sutures. A sterile Biopatch and Tegaderm was placed over the catheter at the insertion site. The patient tolerated the procedure without any hemodynamic compromise. At the time of procedure completion, the catheter was connected to the nurse liaison and calibrated. Appropriate waveform and blood pressure tracing was observed. Estimated blood loss is less than 5 mL. CPT: 48111 Arterial line insertion CPT: 51842 US add-on EB BERMUDEZ MD Jul 09, 2024 19:18
--- NOTE | 2024-07-09 19:30 | DVHNC2 ---
Procedure - Procedure: Endotracheal Intubation INDICATION: Acute respiratory failure, accessory muscle usage Physician: Eb Bermudez MD [employer] Consultant: Dr Luna CONSENT: Emergent procedure. Implied. Time out time: 1829 Patient medications and allergies reviewed. Patient identification and proposed procedure were verified prior to the procedure by the physician, and a nurse in the patient's room. The heart rate, respiratory rate, oxygen saturations, blood pressure, adequacy of pulmonary ventilation, and response to care were monitored throughout the procedure. The physical status of the patient was reassessed after the procedure. PROCEDURE SUMMARY: A time out was performed. My hands were washed immediately prior to the procedure. I wore a surgical cap, mask with protective eyewear, gown and gloves throughout the procedure. The patient was placed on a color television console monitor including continuous pulse oximetry. The patient received 16 mg Etomidate and 50 mg rocuronium for induction. Cricoid pressure was maintained from time induction agent was given to time of cuff balloon inflation. Using a MAC 4 GlideoScope and a size 8.0 endotracheal tube with stylet, the patient was intubated on the 1 attempt. The stylet was removed and cuff balloon was inflated. Appropriate endotracheal tube position was confi rmed by direct visualization of vocal cord passage, fogging of the tube, CO2 colorimetric indicator and symmetric breath sounds. The tube was secured at 23 cm at the lips. CPT Code: 23391 EB BERMUDEZ MD Jul 09, 2024 19:30
[2024-07-09] MEDS: ALBUMIN 25% 100 ML IV PRN (19:40)
[2024-07-09] MEDS: PROPOFOL 100 ML IV ONE (19:54)
[2024-07-09] MEDS: PROPOFOL 100 ML IV SCH (19:55)
--- NOTE | 2024-07-09 19:59 | DVHSR ---
APPROVED REPORT EXAM: Two-dimensional and M-mode echocardiogram with Doppler and color Doppler. Blood Pressure: 87/63 mmHg INDICATION Evaulate cardiac function Surgery/Intervention CABG: RISK FACTORS Height: 5'4", Weight: 178 DIMENSIONS LVDd5.1 (3.8-5.7cm)LA (2D)4.4 (1.9-4.0cm)Aortic Root3.2 (2.0-3.7cm) LVDs4.1 (2.5-4.0cm)LA (MM) (1.9-4.0cm)Aortic Cusp Exc1.7 (1.5-2.0cm) EF (%) 42.0 (55-70%)Rt. Atrium4.8 (1.9-4.0cm)Asc. Aorta3.7 cm IVSd1.2 (0.7-1.1cm)RV (D) (1.8-2.4cm) PWd1.0 (0.7-1.1cm) Mitral Valve MitralMitral Stenosis E wave1.04m/sMV Mean GR.mmHg A wave0.42m/sMV Peak GR.mmHg E/A ratio2.52D MVAcm2 DECEL [id number] 1/2 Timems Aortic Valve Aortic ValveAortic Stenosis V11.25m/Dwayne Mean GR.7mmHg V21.66m/Dwayne Peak GR.11mmHg LVOT Diameter2.2 (1.8-2.4cm)Doppler AVA2.86cm2 Pulmonic Valve V20.68m/s Tricuspid Valve TR Velocity2.02m/s [id number] Conclusion DILATED CARDIOMYOPATHY LV EJECTION FRACTION IS ONLY 25% MODERATE DEGREE MR NO EFFUSION NORMAL VALVES
--- NOTE | 2024-07-09 20:17 | DVH ---
CHEST RADIOGRAPH Indication: INTUBATION/CENTRAL LINE PLACEMENT Technique: Single frontal view of the chest was obtained COMPARISON: XY CHEST PORTABLE on DOS: 07/09/24, XY CHEST PORTABLE on DOS: 07/08/24 FINDINGS: Lines and Tubes: Endotracheal tube terminates 1.8 cm above the quin. Enteric tube courses below the diaphragm with tip collimated from view Lungs: Mild interstitial pulmonary edema. Left lower lobe opacity may reflect atelectasis or pneumoni a. Pleura: Small left pleural effusion. No pneumothorax. Cardiomediastinal contours: Unremarkable Bones: Unremarkable IMPRESSION: 1. Left lower lobe opacity may reflect atelectasis or mild pneumonia. 2. Mild interstitial pulmonary edema. 3. Small left pleural effusion. 4. Lines and tubes as above
--- NOTE | 2024-07-09 20:33 | DVHINCON2 ---
Date of service: Jul 09, [address] Johnson Reason for Consultation ESRD History of Present Illness Mr. Daniel presents to the hospital initially with chest pain. He was seen earlier this afternoon in the emergency department, patient's daughters at the bedside. Mr. Daniel was mildly tachypneic and was not able to be extubated and history and physical. Lab data notable for significant leukopenia. He has gram-negative anabella bacteremia as a preliminary result Past Medical History ESRD Diabetes Hypertension Anemia Allergies: Coded Allergies: NO KNOWN ALLERGIES (Unverified , 07/08/24) Current Medications Current Medications Medications (Trade) Dose Ordered Sig/Rey Route PRN Reason Start Time Stop Time Status Last Admin Cefepime HCl 50 ml @ 12.5 mls/hr Q8HR IV 07/08/24 22:00 07/08/24 16:54 DC Phenylephrine HCl 250 ml @ 30 mls/hr Q8H20M IV 07/08/24 23:00 07/09/24 16:07 DC 07/09/24 03:20 Sevelamer HCl (Renagel) 800 mg TIDWM PO 07/09/24 08:00 07/09/24 17:04 DC 07/09/24 11:47 Multivit/Ca Carb/ B Cmplx/FA/Prenat (Nephro-Kwaku Tablet) 1 tab DAILY PO 07/09/24 10:00 07/09/24 17:04 DC 07/09/24 11:47 Atorvastatin Calcium (Lipitor) 20 mg HS PO 07/09/24 22:00 07/09/24 17:04 DC Levofloxacin 50 ml @ 50 mls/hr Q48H IV 07/10/24 02:00 07/09/24 16:23 DC Sodium Chloride (Saline Lock Ns) 10 ml Q8HR IV 07/09/24 06:00 07/09/24 14:05 Acetaminophen/ Hydrocodone Bitart ([place] 5/325MG Tab) 1 tab Q4HP PRN PO MODERATE PAIN (4-6 PAIN SCALE) 07/09/24 01:45 07/09/24 17:04 DC 07/09/24 10:00 Ondansetron HCl (Zofran) 4 mg Q4HP PRN IV NAUSEA / VOMITING 07/09/24 01:45 07/09/24 17:04 DC Docusate Sodium (Colace Capsule) 100 mg BIDPRN PRN PO FOR CONSTIPATION 07/09/24 01:45 07/09/24 17:04 DC Nitroglycerin (Ntrostat Sublingual) 0.4 mg Q5MINP PRN SL FOR CHEST PAIN 07/09/24 03:15 07/09/24 17:04 DC Morphine Sulfate 2 mg Q30M PRN IV FOR CHEST PAIN 07/09/24 03:15 07/09/24 17:04 DC 07/09/24 06:32 Vasopressin 20 units/Sodium Chloride 100 ml @ 9 mls/hr Q11H7M IV 07/09/24 13:15 07/09/24 14:21 Norepinephrine Bitartrate 32 mg/ Sodium Chloride 250 ml @ 0.938 mls/ hr Q24H IV 07/09/24 15:30 07/09/24 16:31 Phenylephrine HCl 80 mg/Sodium Chloride 250 ml @ 7.5 mls/hr Q24H IV 07/09/24 15:45 07/09/24 17:00 Dextrose 1,000 ml @ 75 mls/hr [id number] IV 07/09/24 16:15 07/09/24 16:32 Meropenem 50 ml @ 17 mls/hr DAILY IV 07/09/24 16:30 07/09/24 19:27 DC Diagnostic Test (Pha) (Accu-Chek Comfort Curve T) 1 strip Q4HR 07/09/24 18:00 07/09/24 17:56 Meropenem 50 ml @ 17 mls/hr Q12HR IV 07/10/24 10:00 Epinephrine HCl 250 ml @ 7.5 mls/hr Q24H IV 07/09/24 17:00 Pantoprazole Sodium (Protonix) 40 mg DAILY IV 07/10/24 10:00 Fentanyl Citrate 250 ml @ 2.5 mls/hr Q24H IV 07/09/24 17:30 07/09/24 18:44 Hydrocortisone Sodium Succinate (Solu-CORTEF INJECTION) 100 mg Q8H IV 07/09/24 17:44 07/09/24 17:56 Albumin Human 100 ml @ 100 mls/hr PRN PRN IV FOR b/p SUPPORT DURING HD 07/09/24 18:30 Propofol 100 ml @ 2.79 mls/hr Q24H IV 07/09/24 20:00 UNV Family History: Patient reports no known family medical history. Review of Systems unable to be obtained due to patient's critical status H&P Exam Vital Signs/I&O Vital Sign Date Time Temp Pulse Resp B/P (MAP) Pulse Ox O2 Delivery O2 Flow Rate FiO2 07/09/24 19:09 100 07/09/24 19:00 121 122/73 (89) 100 07/09/24 18:45 20 07/09/24 16:41 Nasal Cannula* 2 07/09/24 15:40 97.0 97.0 Intake and Output 07/08/24 07/09/24 19:00 07:00 Intake Total 2163.75 ml 1042.75 ml Balance 2163.75 ml 1042.75 ml Intake IV Total 2163.75 ml 1042.75 ml Physical Exam gen: toxic appearing heent: nc lungs: occ ronchi cvs: no rub abd: soft ext: demarcated area of induration/ erythema and tenderness over the right upper leg. L Forearm AVF Labs/Diagnostic Data Labs/Diagnostic Data Laboratory Tests Test 07/09/24 20:05 07/09/24 18:30 07/09/24 17:31 07/09/24 16:30 Range/Units Blood Gas Specimen Type Arterial Blood Gas Sample Site Arterial line Blood Gas Patient Temperature 37.0 Arterial Blood Date Drawn Arterial Blood pH 7.243 *L 7.350-7.450 Arterial Blood Partial Pressure CO2 39.4 35.0-48.0 mmHg Arterial Blood Partial Pressure O2 164.9 H 83.0-108.0 mmHg Arterial Blood HCO3 16.6 L 21.0-28.0 mmol/L Arterial Blood Oxygen Saturation 98.6 H 94.0-98.0 % Arterial Blood Base Excess -10.0 L -2.0-3.0 mmol/L Arterial Blood Oxyhemoglobin 98.0 94.0-98.0 % Arterial Blood Carboxyhemoglobin 0.2 L 0.5-1.5 % Arterial Blood Methemoglobin 0.4 0.0-1.5 % Tima Test N/a Blood Gas Total Hemoglobin 8.70 L 13.5-17.5 g/dL Blood Gas Set Respiration Rate 16.0 Blood Gas Modality Vent - ac FiO2 % 100.0 Blood Gas Tidal Volume 500.0 Blood Gas PEEP or CPAP 5.0 Blood Gas Critical Value Read Back Yes Blood Gas Notified Whom Dr. basilio doss Blood Gas Notified Time [id number] Blood Gas Notified By Sangeeta rubio, jukebox operator POC Glucose 36 *L 70-106 mg/dl White Blood Count 6.9 # 4.4-10.8 10^3/uL Red Blood Count 2.31 L 4.5-5.90 10^6/uL Hemoglobin 8.4 L 13.5-17.5 g/dL Hematocrit 26.1 L 41.0-53.0 % Mean Corpuscular Volume 113.1 H 80.0-100.0 fL Mean Corpuscular Hemoglobin 36.2 H 28.0-32.0 pg Mean Corpuscular Hemoglobin Concent 32.0 32.0-36.0 g/dL Red Cell Distribution Width 16.6 H 11.8-14.3 % Platelet Count 47 L 140-450 10^3/uL Mean Platelet Volume 10.9 H 6.9-10.8 fL Neutrophils (%) (Auto) 37.0-80.0 % Lymphocytes (%) (Auto) 10.0-50.0 % Monocytes (%) (Auto) 0.0-12.0 % Basophils (%) (Auto) 0.0-2.0 % Neutrophils # (Auto) 1.6-8.6 10 ^3/uL Lymphocytes # (Auto) 0.4-5.4 10 ^3/uL Monocytes # (Auto) 0-1.3 10 ^3/uL Differential Total Cells Counted 100.0 100 Neutrophils % (Manual) 49 37.0-80.0 Band Neutrophils % (Manual) 16 Lymphocytes % (Manual) 31 10.0-50.0 Monocytes % (Manual) 4 0-12 Eosinophils % (Manual) 0 0-7 Basophils % (Manual) 0 0.0-2.0 Metamyelocytes % (manual) 0 Myelocytes % (Manual) 0 Promyelocytes % (Manual) 0 Blast Cells % (Manual) 0 Reactive Lymphocytes 0 Platelet Estimate Decreased Prothrombin Time 28.4 H 9.3-11.8 sec Prothrombin Time INR 2.90 H 0.9-1.15 Activated Partial Thromboplast Time 39.9 H 24.5-34.5 SEC Sodium Level 138 136-145 mmol/L Potassium Level 6.0 *H 3.5-5.1 mmol/L Chloride Level 104 98-107 mmol/L Carbon Dioxide Level 15 L 20-31 mmol/L Anion Gap 19 H 5-15 Blood Urea Nitrogen 53 H 9-23 mg/dL Creatinine 7.15 H 0.700-1.30 mg/dL Glomerular Filtration Rate Calc 8 >90 mL/min BUN/Creatinine Ratio 7.4 L 10.0-20.0 Serum Glucose 48 *L 74-106 mg/dL Lactic Acid Level 9.6 *H 0.4-2.0 mmol/L Calcium Level 7.3 L 8.7-10.4 mg/dL Phosphorus Level 5.9 H 2.4-5.1 mg/dL Magnesium Level 2.1 1.6-2.6 mg/dL Total Bilirubin 1.0 0.2-1.0 mg/dL Aspartate Amino Transferase (AST) 348 H 13-40 U/L Alanine Aminotransferase (ALT) 611 H 7-40 U/L Alkaline Phosphatase 101 46-116 U/L B-Type Natriuretic Peptide > 5000.00 0-100 pg/mL Total Protein 5.6 L 5.7-8.2 g/dL Albumin 3.5 3.2-4.8 g/dL Test 07/09/24 16:27 07/09/24 15:29 07/09/24 14:13 07/09/24 05:49 Range/Units Blood Gas Specimen Type Arterial Blood Gas Sample Site Right radial Blood Gas Patient Temperature 37.0 Arterial Blood Date Drawn [id number] Arterial Blood pH 7.258 L 7.350-7.450 Arterial Blood Partial Pressure CO2 25.8 L 35.0-48.0 mmHg Arterial Blood Partial Pressure O2 94.4 83.0-108.0 mmHg Arterial Blood HCO3 11.3 L 21.0-28.0 mmol/L Arterial Blood Oxygen Saturation 95.7 94.0-98.0 % Arterial Blood Base Excess -14.4 L -2.0-3.0 mmol/L Arterial Blood Oxyhemoglobin 95.1 94.0-98.0 % Arterial Blood Carboxyhemoglobin 0.6 0.5-1.5 % Arterial Blood Methemoglobin 0.0 0.0-1.5 % Tima Test Yes Blood Gas Total Hemoglobin 9.20 L 13.5-17.5 g/dL Blood Gas Liter Flow 2.00 Blood Gas Modality Nasal cannula FiO2 % 28.0 POC Glucose 111 H 70-106 mg/dl Sodium Level 139 136-145 mmol/L Potassium Level 5.8 *H 3.5-5.1 mmol/L Chloride Level 105 98-107 mmol/L Carbon Dioxide Level 14 L 20-31 mmol/L Anion Gap 20 H 5-15 Blood Urea Nitrogen 59 #H 9-23 mg/dL Creatinine 7.03 H 6.53 H 0.700-1.30 mg/dL Glomerular Filtration Rate Calc 8 9 >90 mL/min BUN/Creatinine Ratio 8.4 L 10.0-20.0 Serum Glucose 24 *L 74-106 mg/dL Calcium Level 7.2 L 8.7-10.4 mg/dL Magnesium Level 2.1 1.6-2.6 mg/dL Total Bilirubin 1.1 H 0.2-1.0 mg/dL Aspartate Amino Transferase (AST) 306 H 13-40 U/L Alanine Aminotransferase (ALT) 563 H 7-40 U/L Alkaline Phosphatase 101 46-116 U/L Total Protein 5.3 L 5.7-8.2 g/dL Albumin 3.5 3.2-4.8 g/dL White Blood Count 3.9 #L 4.4-10.8 10^3/uL Red Blood Count 2.26 L 4.5-5.90 10^6/uL Hemoglobin 8.2 L 13.5-17.5 g/dL Hematocrit 24.8 L 41.0-53.0 % Mean Corpuscular Volume 109.7 H 80.0-100.0 fL Mean Corpuscular Hemoglobin 36.2 H 28.0-32.0 pg Mean Corpuscular Hemoglobin Concent 33.0 32.0-36.0 g/dL Red Cell Distribution Width 16.3 H 11.8-14.3 % Platelet Count 59 L 140-450 10^3/uL Mean Platelet Volume 10.5 6.9-10.8 fL Neutrophils (%) (Auto) 75.9 37.0-80.0 % Lymphocytes (%) (Auto) 14.6 10.0-50.0 % Monocytes (%) (Auto) 6.5 0.0-12.0 % Eosinophils (%) (Auto) 2.9 0.0-7.0 % Basophils (%) (Auto) 0.1 0.0-2.0 % Neutrophils # (Auto) 3.0 1.6-8.6 10 ^3/uL Lymphocytes # (Auto) 0.6 0.4-5.4 10 ^3/uL Monocytes # (Auto) 0.3 0-1.3 10 ^3/uL Eosinophils # (Auto) 0.1 0-0.8 10 ^3/uL Basophils # (Auto) 0 0-0.2 10 ^3/uL Nucleated Red Blood Cells 7.0 % Random Vancomycin Level 17.1 H 5-10 ug/mL Test 07/08/24 22:27 07/08/24 21:11 07/08/24 18:40 07/08/24 17:54 Range/Units POC Glucose 78 70-106 mg/dl Lactic Acid Level 3.8 *H 3.4 *H 3.1 *H 0.4-2.0 mmol/L Troponin I High Sensitivity 33 </=54 ng/L Test 07/08/24 16:53 07/08/24 16:25 07/08/24 15:22 07/08/24 15:07 Range/Units POC Glucose 87 70-106 mg/dl Troponin I High Sensitivity 33 32 </=54 ng/L White Blood Count 1.8 *L 4.4-10.8 10^3/uL Red Blood Count 2.13 L 4.5-5.90 10^6/uL Hemoglobin 7.5 L 13.5-17.5 g/dL Hematocrit 23.1 L 41.0-53.0 % Mean Corpuscular Volume 108.6 H 80.0-100.0 fL Mean Corpuscular Hemoglobin 35.4 H 28.0-32.0 pg Mean Corpuscular Hemoglobin Concent 32.7 32.0-36.0 g/dL Red Cell Distribution Width 15.6 H 11.8-14.3 % Platelet Count 62 L 140-450 10^3/uL Mean Platelet Volume 9.5 6.9-10.8 fL Neutrophils (%) (Auto) 37.0-80.0 % Lymphocytes (%) (Auto) 10.0-50.0 % Monocytes (%) (Auto) 0.0-12.0 % Basophils (%) (Auto) 0.0-2.0 % Neutrophils # (Auto) 1.6-8.6 10 ^3/uL Lymphocytes # (Auto) 0.4-5.4 10 ^3/uL Monocytes # (Auto) 0-1.3 10 ^3/uL Differential Total Cells Counted 100.0 100 Neutrophils % (Manual) 53 37.0-80.0 Band Neutrophils % (Manual) 11 Lymphocytes % (Manual) 34 10.0-50.0 Monocytes % (Manual) 2 0-12 Eosinophils % (Manual) 0 0-7 Basophils % (Manual) 0 0.0-2.0 Metamyelocytes % (manual) 0 Myelocytes % (Manual) 0 Promyelocytes % (Manual) 0 Blast Cells % (Manual) 0 Reactive Lymphocytes 0 Platelet Estimate Decreased Prothrombin Time 17.4 H 9.3-11.8 sec Prothrombin Time INR 1.71 H 0.9-1.15 Activated Partial Thromboplast Time 32.6 24.5-34.5 SEC Sodium Level 137 136-145 mmol/L Potassium Level 4.1 3.5-5.1 mmol/L Chloride Level 103 98-107 mmol/L Carbon Dioxide Level 23 20-31 mmol/L Anion Gap 11 5-15 Blood Urea Nitrogen 37 H 9-23 mg/dL Creatinine 5.66 H 0.700-1.30 mg/dL Glomerular Filtration Rate Calc 11 >90 mL/min BUN/Creatinine Ratio 6.5 L 10.0-20.0 Serum Glucose 80 74-106 mg/dL Calcium Level 7.7 L 8.7-10.4 mg/dL Total Bilirubin 0.6 0.2-1.0 mg/dL Aspartate Amino Transferase (AST) 244 H 13-40 U/L Alanine Aminotransferase (ALT) 561 H 7-40 U/L Alkaline Phosphatase 105 46-116 U/L Creatine Kinase 114 46-171 U/L Total Protein 5.4 L 5.7-8.2 g/dL Albumin 3.5 3.2-4.8 g/dL Influenza Type A Antigen Negative Negative Influenza Type B Antigen Negative Negative SARS-CoV-2 Antigen (Rapid) Negative NEGATIVE Plan/Recommendation IMP: 1) ESRD on HD 2) hyperkalemia 3) uremic acidosis / lactic acidosis 4) septic shock with gram-negative anabella bacteremia 5) working diagnosis of possible necrotizing fasciitis of right lower extremity 6) anemia REC: - Dialysis for solute removal - No heparin with dialysis today, 2K dialysate - Discussed with patient's daughter at bedside and coordinated care with Dr. Johnson over the telephone. Thank you for the consultation Plan discussed with: Daughter CHIRAG BATISTA MD Jul 09, 2024 20:33
--- NOTE | 2024-07-09 20:53 | DVHINCON2 ---
Date Seen: Jul 09, 2024 Referring Physician JAIME De La Garza Reason for Consultation Hypotension History of Present Illness This is a 58-year-old primarily Vietnamese-speaking male with a past medical history of coronary artery disease status post CABG (unknown how many vessels) in 2021, hypertension, hyperlipidemia, end-stage renal disease on hemodialysis, renal carcinoma status post left nephrectomy, asthma, COPD, and morbid obesity who presents to the ED with complaint of flu-like symptoms, chest pain, and right thigh pain. The patient's who was at bedside confirms that the patient began having flu-like symptoms such as fever and nonproductive cough for three days prior to emergency room arrival. The patient also mentions chest pain which began yesterday while he was at dialysis. He describes it as unprovoked, sharp in nature, midsternal with radiation across his bilateral upper back. Associated symptoms include shortness of breath. The patient's also mentions that while the patient was at dialysis yesterday his blood pressure was noted to be low and so dialysis was not able to be done. The patient's states that the patient's right thigh became swollen and discolored yesterday for unknown reasons. He comes now to the ED from the dialysis center. Cardiology has now been consulted for hypotension. Initial twelve lead electrocardiogram reveals normal sinus rhythm with nonspecific ST segment changes to lateral lead (aVL) and baseline wander. Initial troponin level of 32ng/L with flat trend thereafter. Chest x-ray shows underlying mild pulmonary vascular congestion can not be excluded. The patient and his are very poor historians. Per the patient, he has mostly been seen at [facility]. He denies ever being seen at this facility. The patient reports he follows up with a cardiolo gist in the outpatient setting, but does not remember their name at this time. Of note, patient external medication list significant for Eliquis therapy. Patient and unsure of why patient takes Eliquis, denied any previous history of atrial fibrillation or DVT/PE. Family History: Patient reports no known family medical history. Allergies: Coded Allergies: NO KNOWN ALLERGIES (Unverified , 07/08/24) Current Medications Current Medications Medications (Trade) Dose Ordered Sig/Rey Route PRN Reason Start Time Stop Time Status Last Admin Cefepime HCl 50 ml @ 12.5 mls/hr Q8HR IV 07/08/24 22:00 1/9/25 16:54 DC Phenylephrine HCl 250 ml @ 30 mls/hr Q8H20M IV 07/08/24 23:00 07/09/24 16:07 DC 07/09/24 03:20 Sevelamer HCl (Renagel) 800 mg TIDWM PO 07/09/24 08:00 07/09/24 17:04 DC 07/09/24 11:47 Multivit/Ca Carb/ B Cmplx/FA/Prenat (Nephro-Kwaku Tablet) 1 tab DAILY PO 07/09/24 10:00 07/09/24 17:04 DC 07/09/24 11:47 Atorvastatin Calcium (Lipitor) 20 mg HS PO 07/09/24 22:00 07/09/24 17:04 DC Levofloxacin 50 ml @ 50 mls/hr Q48H IV 07/10/24 02:00 07/09/24 16:23 DC Sodium Chloride (Saline Lock Ns) 10 ml Q8HR IV 07/09/24 06:00 07/09/24 14:05 Acetaminophen/ Hydrocodone Bitart ([place] 5/325MG Tab) 1 tab Q4HP PRN PO MODERATE PAIN (4-6 PAIN SCALE) 07/09/24 01:45 07/09/24 17:04 DC 07/09/24 10:00 Ondansetron HCl (Zofran) 4 mg Q4HP PRN IV NAUSEA / VOMITING 07/09/24 01:45 07/09/24 17:04 DC Docusate Sodium (Colace Capsule) 100 mg BIDPRN PRN PO FOR CONSTIPATION 07/09/24 01:45 07/09/24 17:04 DC Nitroglycerin (Ntrostat Sublingual) 0.4 mg Q5MINP PRN SL FOR CHEST PAIN 07/09/24 03:15 07/09/24 17:04 DC Morphine Sulfate 2 mg Q30M PRN IV FOR CHEST PAIN 07/09/24 03:15 07/09/24 17:04 DC 07/09/24 06:32 Vasopressin 20 units/Sodium Chloride 100 ml @ 9 mls/hr Q11H7M IV 07/09/24 13:15 07/09/24 14:21 Norepinephrine Bitartrate 32 mg/ Sodium Chloride 250 ml @ 0.938 mls/ hr Q24H IV 07/09/24 15:30 07/09/24 16:31 Phenylephrine HCl 80 mg/Sodium Chloride 250 ml @ 7.5 mls/hr Q24H IV 07/09/24 15:45 07/09/24 17:00 Dextrose 1,000 ml @ 75 mls/hr [id number] IV 07/09/24 16:15 07/09/24 16:32 Meropenem 50 ml @ 17 mls/hr DAILY IV 07/09/24 16:30 07/09/24 19:27 Diagnostic Test (Pha) (Accu-Chek Comfort Curve T) 1 strip Q4HR 07/09/24 18:00 07/09/24 17:56 Meropenem 50 ml @ 17 mls/hr Q12HR IV 07/10/24 10:00 Epinephrine HCl 250 ml @ 7.5 mls/hr Q24H IV 07/09/24 17:00 Pantoprazole Sodium (Protonix) 40 mg DAILY IV 07/10/24 10:00 Fentanyl Citrate 250 ml @ 2.5 mls/hr Q24H IV 07/09/24 17:30 07/09/24 18:44 Hydrocortisone Sodium Succinate (Solu-CORTEF INJECTION) 100 mg Q8H IV 07/09/24 17:44 07/09/24 17:56 Albumin Human 100 ml @ 100 mls/hr PRN PRN IV FOR b/p SUPPORT DURING HD 07/09/24 18:30 Review of Systems Constitutional: Generalized weakness Ears, Nose, & Throat: No symptom reported Eyes: No symptom reported Neurological: No symptoms reported Pulmonary/Respiratory: No symptoms reported Cardiovascular: Chest pain Gastrointestinal: No symptom reported Genitourinary: No symptom reported Musculoskeletal: No symptom reported Skin: No symptom reported Psychiatric: No symptom reported Endocrine: No symptom reported Hematologic/Lymphatic: No symptom reported Vital Signs Vital Signs Date Time Temp Pulse Resp B/P (MAP) Pulse Ox O2 Delivery O2 Flow Rate FiO2 07/09/24 19:09 100 07/09/24 19:00 121 122/73 (89) 100 07/09/24 18:45 20 07/09/24 16:41 Nasal Cannula* 2 07/09/24 15:40 97.0 97.0 Physical Exam GENERAL: Awake, alert, oriented. Morbidly obese. LUNGS: Clear. CARDIOVASCULAR: Heart sounds are good. ABDOMEN: Soft. EXT: Significant edema to BLE, more significant on RLE. SKIN: Ecchymosis to right upper thigh. Labs/Diagnostic Data Labs Test 07/09/24 17:31 07/09/24 16:30 07/09/24 16:27 07/09/24 05:49 Range/Units POC Glucose 36 *L 70-106 mg/dl White Blood Count 6.9 # 4.4-10.8 10^3/uL Red Blood Count 2.31 L 4.5-5.90 10^6/uL Hemoglobin 8.4 L 13.5-17.5 g/dL Hematocrit 26.1 L 41.0-53.0 % Mean Corpuscular Volume 113.1 H 80.0-100.0 fL Mean Corpuscular Hemoglobin 36.2 H 28.0-32.0 pg Mean Corpuscular Hemoglobin Concent 32.0 32.0-36.0 g/dL Red Cell Distribution Width 16.6 H 11.8-14.3 % Platelet Count 47 L 140-450 10^3/uL Mean Platelet Volume 10.9 H 6.9-10.8 fL Neutrophils (%) (Auto) 37.0-80.0 % Lymphocytes (%) (Auto) 10.0-50.0 % Monocytes (%) (Auto) 0.0-12.0 % Basophils (%) (Auto) 0.0-2.0 % Neutrophils # (Auto) 1.6-8.6 10 ^3/uL Lymphocytes # (Auto) 0.4-5.4 10 ^3/uL Monocytes # (Auto) 0-1.3 10 ^3/uL Differential Total Cells Counted 100.0 100 Neutrophils % (Manual) 49 37.0-80.0 Band Neutrophils % (Manual) 16 Lymphocytes % (Manual) 31 10.0-50.0 Monocytes % (Manual) 4 0-12 Eosinophils % (Manual) 0 0-7 Basophils % (Manual) 0 0.0-2.0 Metamyelocytes % (manual) 0 Myelocytes % (Manual) 0 Promyelocytes % (Manual) 0 Blast Cells % (Manual) 0 Reactive Lymphocytes 0 Platelet Estimate Decreased Prothrombin Time 28.4 H 9.3-11.8 sec Prothrombin Time INR 2.90 H 0.9-1.15 Activated Partial Thromboplast Time 39.9 H 24.5-34.5 SEC Sodium Level 138 136-145 mmol/L Potassium Level 6.0 *H 3.5-5.1 mmol/L Chloride Level 104 98-107 mmol/L Carbon Dioxide Level 15 L 20-31 mmol/L Anion Gap 19 H 5-15 Blood Urea Nitrogen 53 H 9-23 mg/dL Creatinine 7.15 H 0.700-1.30 mg/dL Glomerular Filtration Rate Calc 8 >90 mL/min BUN/Creatinine Ratio 7.4 L 10.0-20.0 Serum Glucose 48 *L 74-106 mg/dL Lactic Acid Level 9.6 *H 0.4-2.0 mmol/L Calcium Level 7.3 L 8.7-10.4 mg/dL Phosphorus Level 5.9 H 2.4-5.1 mg/dL Magnesium Level 2.1 1.6-2.6 mg/dL Total Bilirubin 1.0 0.2-1.0 mg/dL Aspartate Amino Transferase (AST) 348 H 13-40 U/L Alanine Aminotransferase (ALT) 611 H 7-40 U/L Alkaline Phosphatase 101 46-116 U/L B-Type Natriuretic Peptide > 5000.00 0-100 pg/mL Total Protein 5.6 L 5.7-8.2 g/dL Albumin 3.5 3.2-4.8 g/dL Blood Gas Specimen Type Arterial Blood Gas Sample Site Right radial Blood Gas Patient Temperature 37.0 Arterial Blood Date Drawn [id number] Arterial Blood pH 7.258 L 7.350-7.450 Arterial Blood Partial Pressure CO2 25.8 L 35.0-48.0 mmHg Arterial Blood Partial Pressure O2 94.4 83.0-108.0 mmHg Arterial Blood HCO3 11.3 L 21.0-28.0 mmol/L Arterial Blood Oxygen Saturation 95.7 94.0-98.0 % Arterial Blood Base Excess -14.4 L -2.0-3.0 mmol/L Arterial Blood Oxyhemoglobin 95.1 94.0-98.0 % Arterial Blood Carboxyhemoglobin 0.6 0.5-1.5 % Arterial Blood Methemoglobin 0.0 0.0-1.5 % Tima Test Yes Blood Gas Total Hemoglobin 9.20 L 13.5-17.5 g/dL Blood Gas Liter Flow 2.00 Blood Gas Modality Nasal cannula FiO2 % 28.0 Eosinophils (%) (Auto) 2.9 0.0-7.0 % Eosinophils # (Auto) 0.1 0-0.8 10 ^3/uL Basophils # (Auto) 0 0-0.2 10 ^3/uL Nucleated Red Blood Cells 7.0 % Random Vancomycin Level 17.1 H 5-10 ug/mL Test 07/08/24 17:54 07/08/24 15:22 07/08/24 15:07 Range/Units Troponin I High Sensitivity 33 </=54 ng/L Creatine Kinase 114 46-171 U/L Influenza Type A Antigen Negative Negative Influenza Type B Antigen Negative Negative SARS-CoV-2 Antigen (Rapid) Negative NEGATIVE Microbiology Date/Time Source Procedure Growth Status 07/08/24 18:00 Blood Blood Culture - Preliminary Resulted Assessment Hypotension secondary to septic shock. Coronary artery disease status post CABG in 2021. History of hypertension. Hyperlipidemia. Hyperkalemia. Acute anemia. Thrombocytopenia. Transaminitis. End-stage renal disease on hemodialysis. Renal cell carcinoma status post left nephrectomy. COPD. Asthma. Morbid obesity. Plan/Recommendation I agree with your ongoing assessment and care of plan. Patient has been seen by Sheila Garcia NP on my behalf, her and I discussed the plan with the patient. Echocardiogram to evaluate cardiac function. Vasopressors for hemodynamic support. Closely monitor H&H, platelet count. Cardiac surveillance: Notify cardio team of any ECG changes. Obtain medical records from [facility]. Additional plan as per the hospital course. Plan discussed with: Patient NYHA Physical activity limitations: NA Date of Service: Jul 09, 2024 Billing Provider: FRIDA SIMMONS MD Cardiology Common Codes: [id number] INP/OBS CARE (High) Cardiology Consultation Codes: [id number] CONSULT <45MIN FRIDA SIMMONS MD Jul 09, 2024 19:23
[2024-07-09] MEDS: VANCOMYCIN 750MG VIAL 750 MG in D5W 5% 100 ML IV ONE (21:30)
--- NOTE | 2024-07-09 21:55 | DVHINCON2 ---
Date of service: Jul 09, 2024 Referring Physician Kobe Johnson MD Reason for Consultation Acute hypoxic respiratory failure requiring mechanical ventilator History of Present Illness A 58-year-old man w/ past medical history of kidney cancer status post nephrectomy on hemodialysis, Coronary artery disease, and hyperlipidemia who presents to ED today with c/o chest pain. Patient reports symptoms progressively got worse with fever, nonproductive cough, right thigh redness/tenderness, getting worse that prompted this visit. ED workup shows WBC 1.8, hemoglobin 7 five hematocrit 23.1, platelets 54765, sodium 137, potassium 4.1, BUN 37, creatinine 5.66, GFR 11, glucose 80, protein 5.4 troponin 33, lactic acid 3.8, AST 344, ALT 560, blood pressure 78/45 trending up to 99/60, heart rate 88, temperature 98.9 F, O2 saturation 99% oxygen. Extremity venous study showed no evidence of venous thrombosis; chest x-ray revealing obscuration of the left hemidiaphragm which may be overlying cardiac silhouette with underlying pleural effusion/atelectasis/pneumonia not excluded. Extremity CT revealing subcutaneous edema right worse than left, small pleural effusions in the knee, no gas in the soft tissue. Patient was admitted for further care and pulmonary consultation is requested for evaluation and management due to these findings Review of Systems: 14-point review of systems negative unless otherwise noted above. Past Medical History: kidney cancer status post nephrectomy - on hemodialysis, Coronary artery disease, and hyperlipidemia Past Surgical History: CABG, nephrectomy Medications: Reviewed. Allergies: No known drug allergies. Family History: No family history of premature CAD. No family history of lung disorders. Social History: Nonsmoker. No alcohol or illicit drug use. Family History: Patient reports no known family medical history. Allergies: Coded Allergies: NO KNOWN ALLERGIES (Unverified , 07/08/24) Home Meds Reported Medications Cholecalciferol (VITAMIN D3) 2,000 Unit Tab, 1 TAB PO DAILY, #30 TAB 5 Refills 07/10/24 Calcium Acetate (Phosphate Bin (Calcium Acetate) 667 Mg Cap, 667 MG PO TIDWM for 30 Days, MG 07/10/24 Sildenafil Citrate (SILDENAFIL CITRATE) 20 Mg Tab, 20 MG PO TID, TAB 07/10/24 Atorvastatin Calcium (ATORVASTATIN CALCIUM) 40 Mg Tab, 1 TAB PO HS 07/10/24 Apixaban Base (ELIQUIS) 5 Mg Tab, 1 TAB PO BID 07/10/24 Hydroxyzine Hcl (Hydroxyzine Hcl) 25 Mg Tab, 1 TAB PO BID PRN for FOR ITCHING 07/10/24 Ranolazine (Ranolazine ER) 500 Mg Tab, 1 TAB PO BID 07/10/24 Allopurinol (Allopurinol) 300 Mg Tab, 300 TAB PO BID 07/10/24 Current Medications Current Medications Medications (Trade) Dose Ordered Sig/Rey Route PRN Reason Start Time Stop Time Status Last Admin Cefepime HCl 50 ml @ 12.5 mls/hr Q8HR IV 07/08/24 22:00 07/08/24 16:54 DC Phenylephrine HCl 250 ml @ 30 mls/hr Q8H20M IV 07/08/24 23:00 07/09/24 16:07 DC 07/09/24 03:20 Sevelamer HCl (Renagel) 800 mg TIDWM PO 07/09/24 08:00 07/09/24 17:04 DC 07/09/24 11:47 Multivit/Ca Carb/ B Cmplx/FA/Prenat (Nephro-Kwaku Tablet) 1 tab DAILY PO 07/09/24 10:00 07/09/24 17:04 DC 07/09/24 11:47 Atorvastatin Calcium (Lipitor) 20 mg HS PO 07/09/24 22:00 07/09/24 17:04 DC Levofloxacin 50 ml @ 50 mls/hr Q48H IV 07/10/24 02:00 07/09/24 16:23 DC Sodium Chloride (Saline Lock Ns) 10 ml Q8HR IV 07/09/24 06:00 07/09/24 14:05 Acetaminophen/ Hydrocodone Bitart ([place] 5/325MG Tab) 1 tab Q4HP PRN PO MODERATE PAIN (4-6 PAIN SCALE) 07/09/24 01:45 07/09/24 17:04 DC 07/09/24 10:00 Ondansetron HCl (Zofran) 4 mg Q4HP PRN IV NAUSEA / VOMITING 07/09/24 01:45 07/09/24 17:04 DC Docusate Sodium (Colace Capsule) 100 mg BIDPRN PRN PO FOR CONSTIPATION 07/09/24 01:45 07/09/24 17:04 DC Nitroglycerin (Ntrostat Sublingual) 0.4 mg Q5MINP PRN SL FOR CHEST PAIN 07/09/24 03:15 07/09/24 17:04 DC Morphine Sulfate 2 mg Q30M PRN IV FOR CHEST PAIN 07/09/24 03:15 07/09/24 17:04 DC 07/09/24 06:32 Vasopressin 20 units/Sodium Chloride 100 ml @ 9 mls/hr Q11H7M IV 07/09/24 13:15 07/09/24 14:21 Norepinephrine Bitartrate 32 mg/ Sodium Chloride 250 ml @ 0.938 mls/ hr Q24H IV 07/09/24 15:30 07/09/24 16:31 Phenylephrine HCl 80 mg/Sodium Chloride 250 ml @ 7.5 mls/hr Q24H IV 07/09/24 15:45 07/09/24 17:00 Dextrose 1,000 ml @ 75 mls/hr [id number] IV 07/09/24 16:15 07/09/24 16:32 Meropenem 50 ml @ 17 mls/hr DAILY IV 07/09/24 16:30 07/09/24 19:27 DC Diagnostic Test (Pha) (Accu-Chek Comfort Curve T) 1 strip Q4HR 07/09/24 18:00 07/09/24 17:56 Meropenem 50 ml @ 17 mls/hr Q12HR IV 07/10/24 10:00 Epinephrine HCl 250 ml @ 7.5 mls/hr Q24H IV 07/09/24 17:00 Pantoprazole Sodium (Protonix) 40 mg DAILY IV 07/10/24 10:00 Fentanyl Citrate 250 ml @ 2.5 mls/hr Q24H IV 07/09/24 17:30 07/09/24 18:44 Hydrocortisone Sodium Succinate (Solu-CORTEF INJECTION) 100 mg Q8H IV 07/09/24 17:44 07/09/24 17:56 Albumin Human 100 ml @ 100 mls/hr PRN PRN IV FOR b/p SUPPORT DURING HD 07/09/24 18:30 07/09/24 20:25 Propofol 100 ml @ 2.79 mls/hr Q24H IV 07/09/24 20:00 Vital Signs Vital Signs Date Time Temp Pulse Resp B/P (MAP) Pulse Ox O2 Delivery O2 Flow Rate FiO2 07/09/24 20:30 104 126/43 (70) 100 100 07/09/24 18:45 20 07/09/24 16:41 Nasal Cannula* 2 07/09/24 15:40 97.0 97.0 Physical Exam Gen.: Patient lying in bed in medical ICU. Sedated, intubated on mechanical ventilator. Head: Normocephalic, atraumatic. Eyes: PERRLA. Ears: Normal external anatomy. Throat: Endotracheal tube and orogastric tube in place. Neck: Supple, trachea midline. Chest: Transmitted breath sounds bilaterally. Decreased air entry bilaterally. No wheezing. Bibasilar crackles. Cardiovascular: Positive S1, positive S2. Regular rate and rhythm. Abdomen: Positive bowel sounds in all 4 quadrants. Soft, nontender, nondistended. : Whiting in place. Normal external genitalia. Rectal: Deferred. Skin: Warm, dry. Intact. Extremities: 2+ radial pulses bilaterally. No lower extremity edema. Neuro: Sedated. Labs/Diagnostic Data Labs Test 07/09/24 20:05 07/09/24 19:56 07/09/24 17:31 07/09/24 16:30 Range/Units Blood Gas Specimen Type Arterial Blood Gas Sample Site Arterial line Blood Gas Patient Temperature 37.0 Arterial Blood Date Drawn [id number] Arterial Blood pH 7.243 *L 7.350-7.450 Arterial Blood Partial Pressure CO2 39.4 35.0-48.0 mmHg Arterial Blood Partial Pressure O2 164.9 H 83.0-108.0 mmHg Arterial Blood HCO3 16.6 L 21.0-28.0 mmol/L Arterial Blood Oxygen Saturation 98.6 H 94.0-98.0 % Arterial Blood Base Excess -10.0 L -2.0-3.0 mmol/L Arterial Blood Oxyhemoglobin 98.0 94.0-98.0 % Arterial Blood Carboxyhemoglobin 0.2 L 0.5-1.5 % Arterial Blood Methemoglobin 0.4 0.0-1.5 % Tima Test N/a Blood Gas Total Hemoglobin 8.70 L 13.5-17.5 g/dL Blood Gas Set Respiration Rate 16.0 Blood Gas Modality Vent - ac FiO2 % 100.0 Blood Gas Tidal Volume 500.0 Blood Gas PEEP or CPAP 5.0 Blood Gas Critical Value Read Back Yes Blood Gas Notified Whom Dr. basilio doss Blood Gas Notified Time [id number] Blood Gas Notified By Sangeeta rubio rrt Lactic Acid Level 8.2 *H 0.4-2.0 mmol/L POC Glucose 36 *L 70-106 mg/dl White Blood Count 6.9 # 4.4-10.8 10^3/uL Red Blood Count 2.31 L 4.5-5.90 10^6/uL Hemoglobin 8.4 L 13.5-17.5 g/dL Hematocrit 26.1 L 41.0-53.0 % Mean Corpuscular Volume 113.1 H 80.0-100.0 fL Mean Corpuscular Hemoglobin 36.2 H 28.0-32.0 pg Mean Corpuscular Hemoglobin Concent 32.0 32.0-36.0 g/dL Red Cell Distribution Width 16.6 H 11.8-14.3 % Platelet Count 47 L 140-450 10^3/uL Mean Platelet Volume 10.9 H 6.9-10.8 fL Neutrophils (%) (Auto) 37.0-80.0 % Lymphocytes (%) (Auto) 10.0-50.0 % Monocytes (%) (Auto) 0.0-12.0 % Basophils (%) (Auto) 0.0-2.0 % Neutrophils # (Auto) 1.6-8.6 10 ^3/uL Lymphocytes # (Auto) 0.4-5.4 10 ^3/uL Monocytes # (Auto) 0-1.3 10 ^3/uL Differential Total Cells Counted 100.0 100 Neutrophils % (Manual) 49 37.0-80.0 Band Neutrophils % (Manual) 16 Lymphocytes % (Manual) 31 10.0-50.0 Monocytes % (Manual) 4 0-12 Eosinophils % (Manual) 0 0-7 Basophils % (Manual) 0 0.0-2.0 Metamyelocytes % (manual) 0 Myelocytes % (Manual) 0 Promyelocytes % (Manual) 0 Blast Cells % (Manual) 0 Reactive Lymphocytes 0 Platelet Estimate Decreased Prothrombin Time 28.4 H 9.3-11.8 sec Prothrombin Time INR 2.90 H 0.9-1.15 Activated Partial Thromboplast Time 39.9 H 24.5-34.5 SEC Sodium Level 138 136-145 mmol/L Potassium Level 6.0 *H 3.5-5.1 mmol/L Chloride Level 104 98-107 mmol/L Carbon Dioxide Level 15 L 20-31 mmol/L Anion Gap 19 H 5-15 Blood Urea Nitrogen 53 H 9-23 mg/dL Creatinine 7.15 H 0.700-1.30 mg/dL Glomerular Filtration Rate Calc 8 >90 mL/min BUN/Creatinine Ratio 7.4 L 10.0-20.0 Serum Glucose 48 *L 74-106 mg/dL Calcium Level 7.3 L 8.7-10.4 mg/dL Phosphorus Level 5.9 H 2.4-5.1 mg/dL Magnesium Level 2.1 1.6-2.6 mg/dL Total Bilirubin 1.0 0.2-1.0 mg/dL Aspartate Amino Transferase (AST) 348 H 13-40 U/L Alanine Aminotransferase (ALT) 611 H 7-40 U/L Alkaline Phosphatase 101 46-116 U/L B-Type Natriuretic Peptide > 5000.00 0-100 pg/mL Total Protein 5.6 L 5.7-8.2 g/dL Albumin 3.5 3.2-4.8 g/dL Test 07/09/24 16:27 07/09/24 05:49 07/08/24 17:54 07/08/24 15:22 Range/Units Blood Gas Liter Flow 2.00 Eosinophils (%) (Auto) 2.9 0.0-7.0 % Eosinophils # (Auto) 0.1 0-0.8 10 ^3/uL Basophils # (Auto) 0 0-0.2 10 ^3/uL Nucleated Red Blood Cells 7.0 % Random Vancomycin Level 17.1 H 5-10 ug/mL Troponin I High Sensitivity 33 </=54 ng/L Creatine Kinase 114 46-171 U/L Test 07/08/24 15:07 Range/Units Influenza Type A Antigen Negative Negative Influenza Type B Antigen Negative Negative SARS-CoV-2 Antigen (Rapid) Negative NEGATIVE Microbiology Date/Time Source Procedure Growth Status 07/08/24 18:00 Blood Blood Culture - Preliminary Resulted Assessment Impression: Acute hypoxic respiratory failure On mechanical ventilator Pulmonary edema Necrotizing fasciitis Septic shock Morbid obesity Plan: s/p intubation on mechanical ventilator. CXR image and report reviewed. Left mid and lower lung zone opacification which may represent pneumonia with possible small left-sided pleural effusion. Devices in place. ABG reviewed, acidemia. On AC mode; RR 16, VT 500, PEEP 5, FiO2 100% Titrate FIO2 to keep O2 saturation above 90%. VAP bundle. Daily ABG and CXR while intubated Sedate for ventilator synchrony - Fentanyl drip Continue antibiotics. F/u cultures. Continue IV steroids On pressors for hemodynamic support Levophed 30 mcg/min, vasopressin 0.03 units/min Off Wojciech-Synephrine Titrate to keep mean arterial pressure greater than 65 mmHg. Monitor renal function Monitor electrolytes. Supplement as necessary. Monitor ins and outs. Maintain euvolemia. GI prophylaxis. DVT prophylaxis. Prognosis: Poor given patient's multiple co-morbidities. Condition: Critical Rest of plan per hospitalist and other consultants. A total of 35 minutes of critical care time was spent reviewing the patient record, examining the patient, making a diagnostic and therapeutic plan, discussing this plan with the medical personnel, following up on diagnostic studies and following the patient for clinical stability excluding any and all procedures. At least 50% of this time was spent in direct, [id number] contact. Thank you Dr. Johnson, for allowing me to participate in this patient's care. Further recommendations will depend on the patient's clinical course. Please do not hesitate to contact me if you have any questions or concerns. This medical document was created using an electronic medical record system with [employer] dictation system. Although these documentations are being carefully reviewed, there may still be some phonetic and typographical changes. The errors are purely typographical, due to imperfection on the software program, and do not reflect any compromise in the patient's medical care. Plan discussed with: Other (JACEK Amor/MD Johnson) EB DOSS MD Jul 09, 2024 21:55
[2024-07-09] MEDS ORDERED: ATORVASTATIN 20 MG TAB PO SCH (22:00)
[2024-07-09] MEDS: MEROPENEM 1GM IVPB 50 ML IV SCH (23:09)
[2024-07-09] MEDS: VASOPRESSIN 20 UNIT/ML ONE (23:10)
[2024-07-09 23:28] LABS: Hematocrit 21.8 % (41.0-53.0); Hemoglobin 7.1 g/dL (13.5-17.5); Mean Corpuscular Hemoglobin 35.8 pg (28.0-32.0); Mean Corpuscular Hgb Conc. 32.6 g/dL (32.0-36.0); Mean Corpuscular Volume 109.7 fL (80.0-100.0); Red Blood Cells 1.99 10^6/uL (4.5-5.90); Red Cell Distribution Width 16.4 % (11.8-14.3); White Blood Cell 8.1 10^3/uL (4.4-10.8)
--- NOTE | 2024-07-09 23:29 | DVHINCON2 ---
Date of service: Jul 09, 2024 Family History: Patient reports no known family medical history. Allergies: Coded Allergies: NO KNOWN ALLERGIES (Unverified , 07/08/24) Home Meds Reported Medications Cholecalciferol (VITAMIN D3) 2,000 Unit Tab, 1 TAB PO DAILY, #30 TAB 5 Refills 07/10/24 Calcium Acetate (Phosphate Bin (Calcium Acetate) 667 Mg Cap, 667 MG PO TIDWM for 30 Days, MG 07/10/24 Sildenafil Citrate (SILDENAFIL CITRATE) 20 Mg Tab, 20 MG PO TID, TAB 07/10/24 Atorvastatin Calcium (ATORVASTATIN CALCIUM) 40 Mg Tab, 1 TAB PO HS 07/10/24 Apixaban Base (ELIQUIS) 5 Mg Tab, 1 TAB PO BID 07/10/24 Hydroxyzine Hcl (Hydroxyzine Hcl) 25 Mg Tab, 1 TAB PO BID PRN for FOR ITCHING 07/10/24 Ranolazine (Ranolazine ER) 500 Mg Tab, 1 TAB PO BID 07/10/24 Allopurinol (Allopurinol) 300 Mg Tab, 300 TAB PO BID 07/10/24 Current Medications Current Medications Medications (Trade) Dose Ordered Sig/Rey Route PRN Reason Start Time Stop Time Status Last Admin Sevelamer HCl (Renagel) 800 mg TIDWM PO 07/09/24 08:00 07/09/24 17:04 DC 07/09/24 11:47 Multivit/Ca Carb/ B Cmplx/FA/Prenat (Nephro-Kwaku Tablet) 1 tab DAILY PO 07/09/24 10:00 07/09/24 17:04 DC 07/09/24 11:47 Atorvastatin Calcium (Lipitor) 20 mg HS PO 07/09/24 22:00 07/09/24 17:04 DC Levofloxacin 50 ml @ 50 mls/hr Q48H IV 07/10/24 02:00 07/09/24 16:23 DC Sodium Chloride (Saline Lock Ns) 10 ml Q8HR IV 07/09/24 06:00 07/09/24 22:28 Acetaminophen/ Hydrocodone Bitart ([place] 5/325MG Tab) 1 tab Q4HP PRN PO MODERATE PAIN (4-6 PAIN SCALE) 07/09/24 01:45 07/09/24 17:04 DC 07/09/24 10:00 Ondansetron HCl (Zofran) 4 mg Q4HP PRN IV NAUSEA / VOMITING 07/09/24 01:45 07/09/24 17:04 DC Docusate Sodium (Colace Capsule) 100 mg BIDPRN PRN PO FOR CONSTIPATION 07/09/24 01:45 07/09/24 17:04 DC Nitroglycerin (Ntrostat Sublingual) 0.4 mg Q5MINP PRN SL FOR CHEST PAIN 07/09/24 03:15 07/09/24 17:04 DC Morphine Sulfate 2 mg Q30M PRN IV FOR CHEST PAIN 07/09/24 03:15 07/09/24 17:04 DC 07/09/24 06:32 Vasopressin 20 units/Sodium Chloride 100 ml @ 9 mls/hr Q11H7M IV 07/09/24 13:15 07/09/24 23:10 Norepinephrine Bitartrate 32 mg/ Sodium Chloride 250 ml @ 0.938 mls/ hr Q24H IV 07/09/24 15:30 07/09/24 16:31 Phenylephrine HCl 80 mg/Sodium Chloride 250 ml @ 7.5 mls/hr Q24H IV 07/09/24 15:45 07/09/24 17:00 Dextrose 1,000 ml @ 75 mls/hr Q42T14C IV 07/09/24 16:15 07/09/24 16:32 Meropenem 50 ml @ 17 mls/hr DAILY IV 07/09/24 16:30 07/09/24 19:27 DC 07/09/24 23:09 Diagnostic Test (Pha) (Accu-Chek Comfort Curve T) 1 strip Q4HR 07/09/24 18:00 07/09/24 22:28 Meropenem 50 ml @ 17 mls/hr Q12HR IV 07/10/24 10:00 Epinephrine HCl 250 ml @ 7.5 mls/hr Q24H IV 07/09/24 17:00 Pantoprazole Sodium (Protonix) 40 mg DAILY IV 07/10/24 10:00 Fentanyl Citrate 250 ml @ 2.5 mls/hr Q24H IV 07/09/24 17:30 07/09/24 18:44 Hydrocortisone Sodium Succinate (Solu-CORTEF INJECTION) 100 mg Q8H IV 07/09/24 17:44 07/09/24 17:56 Albumin Human 100 ml @ 100 mls/hr PRN PRN IV FOR b/p SUPPORT DURING HD 07/09/24 18:30 07/09/24 20:25 Propofol 100 ml @ 2.79 mls/hr Q24H IV 07/09/24 20:00 07/09/24 19:55 Vital Signs Vital Signs Date Time Temp Pulse Resp B/P (MAP) Pulse Ox O2 Delivery O2 Flow Rate FiO2 07/09/24 23:10 97/49 07/09/24 22:35 97 21 100 80 07/09/24 16:41 Nasal Cannula* 2 07/09/24 15:40 97.0 97.0 Labs/Diagnostic Data Labs Test 07/09/24 20:05 07/09/24 19:56 07/09/24 17:31 07/09/24 16:30 Range/Units Blood Gas Specimen Type Arterial Blood Gas Sample Site Arterial line Blood Gas Patient Temperature 37.0 Arterial Blood Date Drawn [id number] Arterial Blood pH 7.243 *L 7.350-7.450 Arterial Blood Partial Pressure CO2 39.4 35.0-48.0 mmHg Arterial Blood Partial Pressure O2 164.9 H 83.0-108.0 mmHg Arterial Blood HCO3 16.6 L 21.0-28.0 mmol/L Arterial Blood Oxygen Saturation 98.6 H 94.0-98.0 % Arterial Blood Base Excess -10.0 L -2.0-3.0 mmol/L Arterial Blood Oxyhemoglobin 98.0 94.0-98.0 % Arterial Blood Carboxyhemoglobin 0.2 L 0.5-1.5 % Arterial Blood Methemoglobin 0.4 0.0-1.5 % Tima Test N/a Blood Gas Total Hemoglobin 8.70 L 13.5-17.5 g/dL Blood Gas Set Respiration Rate 16.0 Blood Gas Modality Vent - ac FiO2 % 100.0 Blood Gas Tidal Volume 500.0 Blood Gas PEEP or CPAP 5.0 Blood Gas Critical Value Read Back Yes Blood Gas Notified Whom Dr. basilio doss Blood Gas Notified Time [id number] Blood Gas Notified By Sangeeta rubio, dylan Lactic Acid Level 8.2 *H 0.4-2.0 mmol/L POC Glucose 36 *L 70-106 mg/dl White Blood Count 6.9 # 4.4-10.8 10^3/uL Red Blood Count 2.31 L 4.5-5.90 10^6/uL Hemoglobin 8.4 L 13.5-17.5 g/dL Hematocrit 26.1 L 41.0-53.0 % Mean Corpuscular Volume 113.1 H 80.0-100.0 fL Mean Corpuscular Hemoglobin 36.2 H 28.0-32.0 pg Mean Corpuscular Hemoglobin Concent 32.0 32.0-36.0 g/dL Red Cell Distribution Width 16.6 H 11.8-14.3 % Platelet Count 47 L 140-450 10^3/uL Mean Platelet Volume 10.9 H 6.9-10.8 fL Neutrophils (%) (Auto) 37.0-80.0 % Lymphocytes (%) (Auto) 10.0-50.0 % Monocytes (%) (Auto) 0.0-12.0 % Basophils (%) (Auto) 0.0-2.0 % Neutrophils # (Auto) 1.6-8.6 10 ^3/uL Lymphocytes # (Auto) 0.4-5.4 10 ^3/uL Monocytes # (Auto) 0-1.3 10 ^3/uL Differential Total Cells Counted 100.0 100 Neutrophils % (Manual) 49 37.0-80.0 Band Neutrophils % (Manual) 16 Lymphocytes % (Manual) 31 10.0-50.0 Monocytes % (Manual) 4 0-12 Eosinophils % (Manual) 0 0-7 Basophils % (Manual) 0 0.0-2.0 Metamyelocytes % (manual) 0 Myelocytes % (Manual) 0 Promyelocytes % (Manual) 0 Blast Cells % (Manual) 0 Reactive Lymphocytes 0 Platelet Estimate Decreased Prothrombin Time 28.4 H 9.3-11.8 sec Prothrombin Time INR 2.90 H 0.9-1.15 Activated Partial Thromboplast Time 39.9 H 24.5-34.5 SEC Sodium Level 138 136-145 mmol/L Potassium Level 6.0 *H 3.5-5.1 mmol/L Chloride Level 104 98-107 mmol/L Carbon Dioxide Level 15 L 20-31 mmol/L Anion Gap 19 H 5-15 Blood Urea Nitrogen 53 H 9-23 mg/dL Creatinine 7.15 H 0.700-1.30 mg/dL Glomerular Filtration Rate Calc 8 >90 mL/min BUN/Creatinine Ratio 7.4 L 10.0-20.0 Serum Glucose 48 *L 74-106 mg/dL Calcium Level 7.3 L 8.7-10.4 mg/dL Phosphorus Level 5.9 H 2.4-5.1 mg/dL Magnesium Level 2.1 1.6-2.6 mg/dL Total Bilirubin 1.0 0.2-1.0 mg/dL Aspartate Amino Transferase (AST) 348 H 13-40 U/L Alanine Aminotransferase (ALT) 611 H 7-40 U/L Alkaline Phosphatase 101 46-116 U/L B-Type Natriuretic Peptide > 5000.00 0-100 pg/mL Total Protein 5.6 L 5.7-8.2 g/dL Albumin 3.5 3.2-4.8 g/dL Test 07/09/24 16:27 07/09/24 05:49 07/08/24 17:54 07/08/24 15:22 Range/Units Blood Gas Liter Flow 2.00 Eosinophils (%) (Auto) 2.9 0.0-7.0 % Eosinophils # (Auto) 0.1 0-0.8 10 ^3/uL Basophils # (Auto) 0 0-0.2 10 ^3/uL Nucleated Red Blood Cells 7.0 % Random Vancomycin Level 17.1 H 5-10 ug/mL Troponin I High Sensitivity 33 </=54 ng/L Creatine Kinase 114 46-171 U/L Test 07/08/24 15:07 Range/Units Influenza Type A Antigen Negative Negative Influenza Type B Antigen Negative Negative SARS-CoV-2 Antigen (Rapid) Negative NEGATIVE Microbiology Date/Time Source Procedure Growth Status 07/08/24 18:00 Blood Blood Culture - Preliminary Resulted Plan/Recommendation ASSESSMENT AND PLAN: ID Problem List: - Septic shock - Necrotizing fasciitis of right lower extremity - End-stage renal disease on hemodialysis - Kidney cancer status post nephrectomy - Coronary artery disease - Hyperlipidemia - Status post CABG Assessment This is a 58 y.o. male with a past medical history of kidney cancer status post nephrectomy, end-stage renal disease on hemodialysis, coronary artery disease, hyperlipidemia, and status post CABG, who presents with chest pain, fever, and right thigh tenderness concerning for necrotizing fasciitis. On admission, the patient had a temperature of 104F, hypotension (BP 78/45 mmHg), lactic acid 3.8 mmol/L, elevated AST (3044 U/L) and ALT (560 U/L), WBC count 37,000/mm, hemoglobin 7.5 g/dL, and platelets 62,000/mm. Physical examination notable for right thigh tenderness and generalized weakness. Initial imaging included CT scan of the right thigh showing subcutaneous edema with no gas in soft tissues and small bilateral knee effusions. Chest CT revealed bronchiovascular crowding; underlying pulmonary vascular condition cannot be excluded. Blood cultures are preliminarily positive for gram-negative rods. Respiratory cultures show gram-positive issa. An anaerobic bottle was positive for gram- negative rods. Laboratory studies reveal persistent elevation of liver enzymes with AST 3009 U/L and ALT 1976 U/L. Lactic acid increased to 15 mmol/L, platelets decreased to 32,000/mm. Peripheral smear shows Elizabeth cells. Potassium is elevated at 6 mEq/L. The patient is intubated and sedated for acute hypoxic respiratory failure and altered mental status. Plan: - Antibiotics: Continue meropenem and clindamycin for broad-spectrum coverage targeting necrotizing fasciitis. - Cultures: Monitor blood culture results and adjust antibiotics as needed. - Surgical Consultation: Consult surgery for evaluation of right lower extremity necrotizing fasciitis; consider urgent debridement or fasciotomy. - Infectious Workup: Follow up on hepatitis screening; recommend HIV screening due to elevated liver enzymes. - Supportive Care: Continue vasopressor support with norepinephrine (Levophed) and epinephrine as needed for septic shock. - Laboratory Monitoring: Recheck laboratory values including CBC, CMP, lactic acid, and coagulation profile. Monitor liver function tests. - Renal Management: Coordinate with nephrology for hemodialysis management. - Isolation Precautions: Standard precautions. Authorized and Performed by: sangeetha cohen Total critical care time: Approximately 76 minutes Due to a high probability of clinically significant, life threatening deterioration, the patient required my highest level of preparedness to intervene emergently and I personally spent this critical care time directly and personally managing the patient. This critical care time included obtaining a history; examining the patient; pulse oximetry; ordering and review of studies; arranging urgent treatment with development of a management plan; evaluation of patient's response to treatment; frequent reassessment; and, discussions with other providers. This critical care time was performed to assess and manage the high probability of imminent, life-threatening deterioration that could result in multi-organ failure. It was exclusive of separately billable procedures and treating other patients and teaching time. Assessment and plan were discussed with the patient as written above. Plan is subject to change pending incorporation of new incoming information/diagnostics. Updates may be added as addendum at the bottom (OR TOP) of this note. Thank you for the interesting consult. ID will continue to follow. Please contact Infectious Disease for any questions or concerns. Sangeetha Cohen M.D. [facility] Ph: ? History: The patient's chart and medications were reviewed in detail, and the patient was seen and examined. History obtained from: Chart (patient is intubated and sedated) Mr. Fredy Fuller is a 58 y.o. male with a past medical history of kidney c ancer status post nephrectomy, end-stage renal disease on hemodialysis, coronary artery disease, hyperlipidemia, and status post CABG, who presents with chest pain, fever, and right thigh tenderness. On admission, the patient had a temperature of 104F, non-productive cough, right thigh tenderness, hypotension (BP 78/45 mmHg), WBC count 37,000/mm, lactic acid 3.8 mmol/L, AST 3044 U/L, and ALT 560 U/L. He was started empirically on vancomycin upon admission and initiated on vasopressor support with norepinephrine (Levophed) and epinephrine for septic shock. Review of Systems: A complete 10-system review of systems was completed and negative except as noted in the HPI or here. ROS: - CONSTITUTIONAL: Reports fever up to 104F, generalized weakness. - HEENT: Denies changes in vision and hearing. - RESPIRATORY: Non-productive cough, denies shortness of breath. - CV: Reports chest pain. - GI: Denies abdominal pain, nausea, vomiting, and diarrhea. - : Denies dysuria and urinary frequency. - MSK: Right thigh tenderness. - SKIN: Denies rash and pruritus. - NEUROLOGICAL: Reports altered mental status. - PSYCHIATRIC: Denies recent changes in mood, anxiety, and depression. Past Medical History: Diagnosis Kidney cancer status post nephrectomy End-stage renal disease on hemodialysis Coronary artery disease Hyperlipidemia Status post CABG Past Surgical History: - Nephrectomy - Coronary artery bypass grafting (CABG) Home Medications: Prior to Admission Medications Medications were reviewed; specifics not provided. Allergies: - Allergies: No Known Allergies Family History: - No notable family history reported. Social History: Socioeconomic History: - Marital status: Not specified - Tobacco Use: Never smoked - Alcohol Use: Denies alcohol use - Drug Use: Denies drug use Social Determinants of Health: - Not on file. Objective: Vital Signs on Arrival: - Temp: 104F - BP: 78/45 mmHg - Pulse: Not specified - Resp: Not specified - SpO?: Not specified Most Recent Vital Signs: - Not specified. Admission Weight: Not specified. Physical Exam: - General: Intubated and sedated. - Neck: Supple. No masses. - HEENT: PERRL. Normal lids and conjunctiva. Moist mucous membranes. Oropharynx without lesions, exudates, or excessive erythema. Normal appearance of the external aspects of the nose and ears. - Heart: Regular rhythm, normal rate. No murmur. No lower extremity edema. - Lungs: Normal respiratory effort. Clear to auscultation bilaterally. No wheezes. No crackles. - Abdomen: Soft. Non-tender. Non-distended. No masses or abdominal hernia. - MSK: Right thigh tenderness. Normal strength and tone in all four limbs. - Skin: Warm and dry, no rashes. - Neuro: Unresponsive due to sedation. No facial droop or slurred speech. Extra- ocular movements intact. - Psych: Unable to assess due to sedation. Lines: - Active Lines: - Peripheral IV Line Diagnostic Studies: Available diagnostic studies were reviewed personally. Significant relevant results and findings are outlined below or addressed in the Assessment and Plan above. Pertinent Imaging: Recent Results (from the past 360 hours) CT Right Thigh: - Impression: - Subcutaneous edema of the right thigh. - No gas in soft tissues. - Small bilateral knee effusions. Chest CT: - Impression: - Bronchiovascular crowding. - Underlying pulmonary vascular condition cannot be excluded. Plan discussed with: Patient SANGEETHA COHEN MD Jul 09, 2024 23:29
[2024-07-10] VITALS (122 sets, daily range): BP systolic 89–225; BP diastolic 10–83; PULSE 64–88; RESP 12–30; TEMP 97.8–99.3; O2SAT 87–100
[2024-07-10 00:22] LABS: Base Excess -9.2 mmol/L (-2.0-3.0)
[2024-07-10 00:25] LABS: Chloride 99 mmol/L (98-107); Potassium 5.1 mmol/L (3.5-5.1); Sodium 139 mmol/L (136-145)
[2024-07-10 00:26] LABS: Anion Gap 20 (5-15); Carbon Dioxide 20 mmol/L (20-31)
[2024-07-10 00:28] LABS: Calcium 7.5 mg/dL (8.7-10.4)
[2024-07-10 00:31] LABS: BUN/Creatinine Ratio 7.7 (10.0-20.0)
[2024-07-10 00:53] LABS: Platelet Count (auto) 66 10^3/uL (140-450)
[2024-07-10 00:55] LABS: Basophils % (manual) 0 (0.0-2.0); Metamyelocytes % 0; Myelocytes % 0; Promyelocytes % 0
[2024-07-10 01:04] LABS: Blood Urea Nitrogen 38 mg/dL (9-23)
[2024-07-10 01:09] LABS: Glucose 322 mg/dL (74-106)
[2024-07-10 01:43] LABS: Band Neutrophils % (manual) 19; Blast Cells 1; Eosinophils % (manual) 1 (0-7); Lymphocytes % (manual) 8 (10.0-50.0); Monocytes % (manual) 26 (0-12); Reactive Lymphocytes 4
[2024-07-10 01:44] LABS: Large Platelets FEW; Macrocytosis Slight; Ovalocytes FEW; Platelet Estimate Decrea; Stomatocytes Moderate
[2024-07-10] MEDS ORDERED: levoFLOXacin 250MG 50 ML IV SCH (02:00)
[2024-07-10 04:32] LABS: Hematocrit 24.9 % (41.0-53.0); Hemoglobin 7.9 g/dL (13.5-17.5); Mean Corpuscular Hemoglobin 35.6 pg (28.0-32.0); Mean Corpuscular Hgb Conc. 31.7 g/dL (32.0-36.0); Mean Corpuscular Volume 112.3 fL (80.0-100.0); Platelet Count (auto) 32 10^3/uL (140-450); Red Blood Cells 2.21 10^6/uL (4.5-5.90); Red Cell Distribution Width 16.7 % (11.8-14.3); White Blood Cell 12.4 10^3/uL (4.4-10.8)
[2024-07-10 04:58] LABS: Albumin 3.8 g/dL (3.2-4.8); Alkaline Phosphatase 100 U/L (46-116); Anion Gap 24 (5-15); BUN/Creatinine Ratio 7.7 (10.0-20.0); Chloride 99 mmol/L (98-107); Glucose 91 mg/dL (74-106); Sodium 140 mmol/L (136-145)
[2024-07-10] MEDS: EPINEPHrine HCL 250 ML IV SCH (05:30)
[2024-07-10 05:35] LABS: Alanine Aminotransferase 978 U/L (7-40); Aspartate Aminotransferase 1483 U/L (13-40); Blood Urea Nitrogen 42 mg/dL (9-23); Calcium 7.6 mg/dL (8.7-10.4); Carbon Dioxide 17 mmol/L (20-31); Total Protein 5.6 g/dL (5.7-8.2)
[2024-07-10 05:36] LABS: Potassium 5.7 mmol/L (3.5-5.1)
[2024-07-10 05:57] LABS: Basophils % (manual) 0 (0.0-2.0); Blast Cells 0; Eosinophils % (manual) 0 (0-7); Promyelocytes % 0; Reactive Lymphocytes 0
[2024-07-10] MEDS: DOPamine 1600MCG/ML D5W 250 ML IV SCH (06:30)
[2024-07-10] MEDS: SODIUM BICARB 8.4% 50Meq/50ml SYR INJ IV ONE (06:30)
[2024-07-10] MEDS: SODIUM ZIRCONIUM CYCL 10 GM PAK PO ONE (06:30)
[2024-07-10 06:32] LABS: LDL Cholesterol 5 mg/dL (< 100)
[2024-07-10 06:33] LABS: Cholesterol 60 mg/dL (< 200)
[2024-07-10 06:37] LABS: HDL Cholesterol < 5 mg/dL (40-59); Triglycerides 364 mg/dL (< 150)
--- NOTE | 2024-07-10 07:35 | DVHPN2 ---
Progress Note Date Seen: Jul 10, 2024 Has the PT tested + for MRSA If YES, has PT been informed?: No Medical Necessity Reason Pt with a Central, PICC or Fol: Yes The following are medically ne: Central Line Subjective Patient reports: Other (Intubated) Review of Systems: HEENT:Normal, CVS:Normal, RESPIRATORY:Normal, GI:Normal, :Normal, MSK:Normal, NEURO:Normal Objective vital signs Vital Sign Date Time Temp Pulse Resp B/P (MAP) Pulse Ox O2 Delivery O2 Flow Rate FiO2 07/10/24 07:26 98.3 78 19 98/41 98.3 07/10/24 07:00 98 07/10/24 06:25 60 07/10/24 06:00 Mechanical Ventilator+ 07/09/24 16:41 2 Total Intake and Output 07/09/24 07/09/24 07/10/24 15:00 23:00 07:00 Intake Total 208.6500 ml 876.004 ml 739.376 ml Balance 208.6500 ml 876.004 ml 739.376 ml medications Current Medications Medications Dose Ordered Sig/Rey Route Start Time Stop Time Status Last Admin Dose Admin Vancomycin HCl 0 ml @ 0 mls/hr UD IV 07/08/24 17:00 Sodium Chloride 10 ml Q8HR IV 07/09/24 06:00 07/10/24 05:48 10 ML Vasopressin 20 units/Sodium Chloride 100 ml @ 9 mls/hr Q11H7M IV 07/09/24 13:15 07/09/24 23:10 9 MLS/HR Norepinephrine Bitartrate 32 mg/ Sodium Chloride 250 ml @ 0.938 mls/ hr Q24H IV 07/09/24 15:30 07/09/24 16:31 14.063 MLS/HR Phenylephrine HCl 80 mg/Sodium Chloride 250 ml @ 7.5 mls/hr Q24H IV 07/09/24 15:45 07/09/24 17:00 7.5 MLS/HR Dextrose 1,000 ml @ 75 mls/hr [id number] IV 07/09/24 16:15 07/09/24 16:32 75 MLS/HR Diagnostic Test (Pha) 1 strip Q4HR 07/09/24 18:00 07/10/24 05:48 1 STRIP Meropenem 50 ml @ 17 mls/hr Q12HR IV 07/10/24 10:00 Epinephrine HCl 250 ml @ 7.5 mls/hr Q24H IV 07/09/24 17:00 07/10/24 05:30 7.5 MLS/HR Pantoprazole Sodium 40 mg DAILY IV 07/10/24 10:00 Fentanyl Citrate 250 ml @ 2.5 mls/hr Q24H IV 07/09/24 17:30 07/09/24 18:44 2.5 MLS/HR Hydrocortisone Sodium Succinate 100 mg Q8H IV 07/09/24 17:44 07/10/24 02:06 100 MG Albumin Human 100 ml @ 100 mls/hr PRN PRN IV 07/09/24 18:30 07/09/24 20:25 100 MLS/HR Propofol 100 ml @ 2.79 mls/hr Q24H IV 07/09/24 20:00 07/09/24 19:55 5.58 MLS/HR Dopamine HCl/ Dextrose 250 ml @ 17.981 mls/ hr [id number] IV 07/10/24 06:30 Examination: GENERAL:Normal, HEENT:Normal, NECK:Normal, LUNGS:Normal, CVS:Normal, ABDOMEN:Normal, MSK:Normal (Right leg less swollen today ecchymosis and erythema has stabilized. There was some bullous blistering behind the calf which was drained 3rd spacing from fluid overload. Noninfectious), SKIN:Normal, NEURO:Normal, :Normal laboratory and microbiology Laboratory Tests 07/10/24 04:01 Test 07/10/24 04:01 Range/Units Serum Glucose 91 # 74-106 mg/dL Microbiology Date/Time Source Procedure Growth Status 07/08/24 18:00 Blood Blood Culture - Preliminary Resulted Labs and/or images reviewed: Labs reviewed by me Problem List/Assessment/Plan Problem List/Assessment/Plan Septic. Continue to monitor right leg at this time no need for surgical debridement. Continue broad-spectrum antibiotics Continue to follow cultures We will need dialysis correction of electrolytes. Would consider blood transfusion. Continue to wean pressors patient has seen some improvement with colloid resuscitation. Plan discussed with: Other (nurse) HERBERT LAMAS Jr., MD Jul 10, 2024 07:35
[2024-07-10] MEDS: DEXTROSE (50%) 50ML SYRG IV ONE (07:45)
[2024-07-10 08:14] LABS: Base Excess -13.1 mmol/L (-2.0-3.0)
[2024-07-10 08:47] LABS: Band Neutrophils % (manual) 25; Lymphocytes % (manual) 6 (10.0-50.0); Metamyelocytes % 1; Monocytes % (manual) 4 (0-12); Myelocytes % 1
[2024-07-10 08:48] LABS: Anisocytosis Slight; Ovalocytes FEW; Platelet Estimate Decreased
[2024-07-10] MEDS: PANTOPRAZOLE 40 MG/10 ML VIAL INJ IV SCH (08:48)
[2024-07-10 08:50] LABS: Macrocytosis Slight
[2024-07-10] MEDS: MEROPENEM 500MG IVPB 50 ML IV SCH (08:50)
--- NOTE | 2024-07-10 10:07 | DVHPN2 ---
Subjective Intubated and sedated On Fent and prop drips On 4 vasopressors Changes from previous H/P or p: Changes Eyes: No Pain, No Vision change, No Conjunctivae inflammation, No Eyelid inflammation, No Other, No Redness ENT: No Ear pain, No Ear discharge, No Nose pain, No Nose discharge, No Nose congestion, No Mouth pain, No Mouth swelling, No Throat pain, No Throat swelling, No Other Cardiovascular: Chest Pain Respiratory: Cough Gastrointestinal: No Nausea, No Vomiting, No Abdominal Pain, No Diarrhea, No Constipation, No Melena, No Hematochezia, No Other Genitourinary: No Dysuria, No Frequency, No Incontinence, No Hematuria, No Retention, No Other Musculoskeletal: other, leg pain Skin: Other Objective Vitals Vital Signs Date Time Temp Pulse Resp B/P (MAP) Pulse Ox O2 Delivery O2 Flow Rate FiO2 07/10/24 09:16 79 22 141/37 (71) 98 128/52 (77) 07/10/24 08:14 60 07/10/24 08:14 Mechanical Ventilator+ 07/10/24 08:01 98.3 98.3 07/09/24 16:41 2 Intake/Output Intake and Output 07/10/24 07:00 Intake Total 2299.1250 ml Balance 2299.1250 ml IV Total 2299.1250 ml General Appearance: Alert, Other (confused) Lungs: Other (Rhonchi and crackles) Cardiovascular: Regular rate, Normal S1, Normal S2 Abdomen: Normal bowel sounds, Soft, No tenderness Extremities: Other (R thigh severe edema and tenderness and erythema with tight skin) Medications Current Medications Medications Dose Ordered Sig/Rey Route Start Time Stop Time Status Last Admin Dose Admin Vancomycin HCl 0 ml @ 0 mls/hr UD IV 07/08/24 17:00 Sodium Chloride 10 ml Q8HR IV 07/09/24 06:00 07/10/24 05:48 10 ML Vasopressin 20 units/Sodium Chloride 100 ml @ 9 mls/hr Q11H7M IV 07/09/24 13:15 07/10/24 08:50 9 MLS/HR Norepinephrine Bitartrate 32 mg/ Sodium Chloride 250 ml @ 0.938 mls/ hr Q24H IV 07/09/24 15:30 07/10/24 08:06 14.063 MLS/HR Phenylephrine HCl 80 mg/Sodium Chloride 250 ml @ 7.5 mls/hr Q24H IV 07/09/24 15:45 07/10/24 08:08 33.75 MLS/HR Diagnostic Test (Pha) 1 strip Q4HR 07/09/24 18:00 07/10/24 05:48 1 STRIP Meropenem 50 ml @ 17 mls/hr Q12HR IV 07/10/24 10:00 07/10/24 08:50 17 MLS/HR Epinephrine HCl 250 ml @ 7.5 mls/hr Q24H IV 07/09/24 17:00 07/10/24 05:30 7.5 MLS/HR Pantoprazole Sodium 40 mg DAILY IV 07/10/24 10:00 07/10/24 08:48 40 MG Fentanyl Citrate 250 ml @ 2.5 mls/hr Q24H IV 07/09/24 17:30 07/09/24 18:44 2.5 MLS/HR Hydrocortisone Sodium Succinate 100 mg Q8H IV 07/09/24 17:44 07/10/24 08:48 100 MG Albumin Human 100 ml @ 100 mls/hr PRN PRN IV 07/09/24 18:30 07/09/24 20:25 100 MLS/HR Propofol 100 ml @ 2.79 mls/hr Q24H IV 07/09/24 20:00 07/09/24 19:55 5.58 MLS/HR Dopamine HCl/ Dextrose 250 ml @ 17.981 mls/ hr [id number] IV 07/10/24 06:30 Sodium Bicarbonate 100 ml/Dextrose 1,100 ml @ 50 mls/hr Q22H IV 07/10/24 10:00 UNV Laboratory Results Laboratory Tests 07/10/24 04:01 Chemistry Test 07/09/24 14:13 07/09/24 16:30 07/09/24 22:55 07/10/24 04:01 Albumin 3.5 g/dL (3.2-4.8) 3.5 g/dL (3.2-4.8) 3.8 g/dL (3.2-4.8) Calcium Level 7.2 mg/dL (8.7-10.4) L 7.3 mg/dL (8.7-10.4) L 7.5 mg/dL (8.7-10.4) L 7.6 mg/dL (8.7-10.4) L Magnesium Level 2.1 mg/dL (1.6-2.6) 2.1 mg/dL (1.6-2.6) Total Protein 5.3 g/dL (5.7-8.2) L 5.6 g/dL (5.7-8.2) L 5.6 g/dL (5.7-8.2) L Phosphorus Level 5.9 mg/dL (2.4-5.1) H Coagulation Test 07/09/24 16:30 Prothrombin Time 28.4 sec (9.3-11.8) H Prothrombin Time INR 2.90 (0.9-1.15) H Activated Partial Thromboplast Time 39.9 SEC (24.5-34.5) H Lipid panel Test 07/10/24 04:01 Cholesterol Level 60 mg/dL (< 200) HDL Cholesterol < 5 mg/dL (40-59) L Triglycerides Level 364 mg/dL (< 150) H Cardiac Markers Test 07/09/24 16:30 B-Type Natriuretic Peptide > 5000.00 pg/mL (0-100) LFT Test 07/09/24 14:13 07/09/24 16:30 07/10/24 04:01 Alanine Aminotransferase (ALT) 563 U/L (7-40) H 611 U/L (7-40) H 978 U/L (7-40) H Alkaline Phosphatase 101 U/L (46-116) 101 U/L (46-116) 100 U/L (46-116) Aspartate Amino Transferase (AST) 306 U/L (13-40) H 348 U/L (13-40) H 1483 U/L (13-40) H Total Bilirubin 1.1 mg/dL (0.2-1.0) H 1.0 mg/dL (0.2-1.0) 2.0 mg/dL (0.2-1.0) H HgA1c, TSH Test 07/10/24 04:01 Hemoglobin A1c Pending Thyroid Stimulating Hormone (TSH) 0.33 uIU/mL (0.55-4.78) L Blood Gas Results Test 07/09/24 16:27 07/09/24 20:05 07/10/24 00:15 07/10/24 07:48 Arterial Blood pH 7.258 (7.350-7.450) 7.243 (7.350-7.450) 7.257 (7.350-7.450) 7.178 (7.350-7.450) FiO2 % 28.0 100.0 80.0 60.0 Microbiology Microbiology Date/Time Source Procedure Growth Status 07/08/24 18:00 Blood Blood Culture - Preliminary Resulted Assessment/Plan Assessment/Plan Severe sepsis with septic shock most likely due to right thigh infection possibly necrotizing fasciitis and also possible underlying pneumonia Bacteremia with Gram-negative rods Rule out RLE necrotizing fasciitis Metabolic acidosis ESRD on HD h/o kidney CA s/p nephrectomy Hyperkalemia Thrombocytopenia Possible LLL pneumonia ?Left pleural effusion CAD Mixed hyperlipidemia DM2 Obesity PLAN: 07/09/2024: Broad spectrum antibiotics Surgical consult, Dr. Ghotra Nephrology consult Hyperkalemia protocol Emergency hyperkalemia protocol, D50, insulin, calcium gluconate, Sodium bicarbonate IV fluids D5W to prevent hypoglycemia Vasopressors as needed No anticoagulation due to the thrombocytopenia NPO for possible surgical intervention after hemodialysis tonight Discussed with Dr. Mauro, he is trying to get hemodialysis done as soon as possible Discussed with Dr. Ghotra, he is planning on possible surgical intervention on his right leg tonight after dialysis Consult infectious disease Blood culture shows Gram-negative rods Get urine culture Full code Prognosis is guarded Discussed with the family at the bedside 07/10/24: Metabolic acidosis: NaBicarb x 2 amps, Hypoglycemia: Change fluids to D10 with 2 amps NaBicarb/liter at 50 ml/hr ESRD: HD per nephrology Sepsis with septic shock: IV antibiotics Meropenem and Vancomycin Right thigh cellulitis / possible underlying necrotizing fasciitis: IV antibiotics, Surgical consult Hyperkalemia: LoKelma given, repeat labs, HD Bacteremia w G- Rods: Meropenem Thrombocytopenia due to sepsis: 1 unit platelets given, repeat labs Sedation as needed, pulmonary consult ID consult Discussed with daughter at the bedside Full code Plan discussed with: Daughter, Other My Orders Orders - DG AQUINO MD Procedure Category Date Status Time Consult CONS 07/09/24 Transmitted Vascular/Endovascular 10:18 Sodium Chl 0.9% PHA 07/09/24 In Process (Ns... 15:30 Sodium Chl 0.9% PHA 07/09/24 In Process (Ns... 15:45 Abg W/ Co-Ox RT 07/09/24 Logged 15:57 Chest Portable XY 07/09/24 Resulted 16:14 *Consult CONS 07/09/24 Transmitted / 16:17 Mrsa Screen CIELO 07/09/24 In Process 16:23 Glucose Blood PHA 07/09/24 In Process (Accu-Chek Comfort 18:00 Meropenem 500mg Ivpb PHA 07/10/24 In Process (Merrem 500mg/Ns) 10:00 Epinephrine Hcl PHA 07/09/24 In Process 17:00 Pantoprazole PHA 07/10/24 In Process (Protonix) 10:00 * Infectious Neal- Dr. CONS 07/09/24 Transmitted Karina Cohen 17:04 Urinalysis LAB 07/09/24 Logged 17:07 Urine Bacterial CIELO 07/09/24 Logged Culture 17:07 Lactic Acid W/ Reflex LAB 07/10/24 Logged Order 08:52 * Wound Consult CONS 07/10/24 Transmitted Dextrose 10% W/Sodium PHA 07/10/24 Logged Bicarb 50meq/50ml 10:00 Sodium Bicarb PHA 07/10/24 Logged 50meq/50ml Vial 10:00 Complete Blood Count LAB 07/10/24 Transmitted 09:54 Comprehensive LAB 07/10/24 Transmitted Metabolic Panel 09:54 Magnesium LAB 07/10/24 Transmitted 09:54 Chest Xray 1 View XY 07/10/24 Transmitted 09:56 Date of Service: Jul 10, 2024 Billing Provider: DG AQUINO MD Common Visit Codes: NOT BILLABLE DG AQUINO MD Jul 10, 2024 10:07
--- NOTE | 2024-07-10 10:17 | DVH ---
CHEST RADIOGRAPH Indication: vent Technique: Single frontal view of the chest was obtained COMPARISON: XY CHEST PORTABLE on DOS: 07/09/24, XY CHEST PORTABLE on DOS: 07/09/24, XY CHEST PORTABLE o n DOS: 07/08/24 FINDINGS: Lines and Tubes: Median sternotomy. Endotracheal tube and enteric catheter in satisfactory position. Lungs: Congestion Pleura: No effusion. No pneumothorax. Cardiomediastinal contours: Cardiomegaly Bones: Unremarkable IMPRESSION: Lines and tubes in satisfactory position. No significant interval change.
[2024-07-10] MEDS: SODIUM BICARB 8.4% 50Meq/50ml SYR Vial IV ONE (10:39)
[2024-07-10 10:44] LABS: Hemoglobin 7.4 g/dL (13.5-17.5)
[2024-07-10 10:45] LABS: Hematocrit 23.8 % (41.0-53.0); Mean Corpuscular Hemoglobin 35.7 pg (28.0-32.0); Mean Corpuscular Hgb Conc. 31.2 g/dL (32.0-36.0); Mean Corpuscular Volume 114.6 fL (80.0-100.0); Platelet Count (auto) 57 10^3/uL (140-450); Red Blood Cells 2.08 10^6/uL (4.5-5.90); Red Cell Distribution Width 17.1 % (11.8-14.3); White Blood Cell 15.9 10^3/uL (4.4-10.8)
[2024-07-10 10:51] LABS: Basophils % (manual) 0 (0.0-2.0); Blast Cells 0; Eosinophils % (manual) 0 (0-7); Metamyelocytes % 0; Promyelocytes % 0; Reactive Lymphocytes 0
[2024-07-10 10:54] LABS: Albumin 3.6 g/dL (3.2-4.8); Anion Gap 24 (5-15); BUN/Creatinine Ratio 8.2 (10.0-20.0); Magnesium 2.2 mg/dL (1.6-2.6); Sodium 139 mmol/L (136-145)
[2024-07-10 11:14] LABS: Blood Urea Nitrogen 46 mg/dL (9-23); Carbon Dioxide 17 mmol/L (20-31); Chloride 98 mmol/L (98-107); Glucose 172 mg/dL (74-106); Potassium 5.4 mmol/L (3.5-5.1)
[2024-07-10 11:15] LABS: Alanine Aminotransferase 1976 U/L (7-40); Alkaline Phosphatase 119 U/L (46-116); Aspartate Aminotransferase 3009 U/L (13-40); Bilirubin, Total 2.1 mg/dL (0.2-1.0); Calcium 7.3 mg/dL (8.7-10.4); Total Protein 5.5 g/dL (5.7-8.2)
[2024-07-10 11:25] LABS: Base Excess -9.9 mmol/L (-2.0-3.0)
[2024-07-10 11:47] LABS: Band Neutrophils % (manual) 24; Lymphocytes % (manual) 7 (10.0-50.0); Macrocytosis Slight; Monocytes % (manual) 6 (0-12); Myelocytes % 1; Platelet Estimate Decreased
[2024-07-10] MEDS: DEXTROSE 10% IV SCH (12:19)
[2024-07-10] MEDS: SODIUM BICARB IV SCH (12:19)
--- NOTE | 2024-07-10 14:44 | DVHPN2 ---
Progress Note - Dictate Date Seen: Jul 10, 2024 Has the PT tested + for MRSA If YES, has PT been informed?: No Medical Necessity Reason Pt with a Central, PICC or Fol: Yes The following are medically ne: Central Line Subjective Patient seen on dialysis, remains markedly hypotensive. Patient is family member at bedside. felt finisher at bedside. vital signs Vital Sign Date Time Temp Pulse Resp B/P (MAP) Pulse Ox O2 Delivery O2 Flow Rate FiO2 07/10/24 14:35 80 26 191/69 (109) 98 60 07/10/24 13:41 Mechanical Ventilator+ 07/10/24 12:01 98.1 98.1 07/09/24 16:41 2 Total Intake and Output 07/09/24 07/09/24 07/10/24 15:00 23:00 07:00 Intake Total 208.6500 ml 997.074 ml 1260.374 ml Balance 208.6500 ml 997.074 ml 1260.374 ml medications Current Medications Medications Dose Ordered Sig/Rey Route Start Time Stop Time Status Last Admin Dose Admin Vancomycin HCl 0 ml @ 0 mls/hr UD IV 07/08/24 17:00 Sodium Chloride 10 ml Q8HR IV 07/09/24 06:00 07/10/24 10:24 10 ML Vasopressin 20 units/Sodium Chloride 100 ml @ 9 mls/hr Q11H7M IV 07/09/24 13:15 07/10/24 08:50 9 MLS/HR Norepinephrine Bitartrate 32 mg/ Sodium Chloride 250 ml @ 0.938 mls/ hr Q24H IV 07/09/24 15:30 07/10/24 08:06 14.063 MLS/HR Phenylephrine HCl 80 mg/Sodium Chloride 250 ml @ 7.5 mls/hr Q24H IV 07/09/24 15:45 07/10/24 08:08 33.75 MLS/HR Diagnostic Test (Pha) 1 strip Q4HR 07/09/24 18:00 07/10/24 13:53 1 STRIP Meropenem 50 ml @ 17 mls/hr Q12HR IV 07/10/24 10:00 07/10/24 08:50 17 MLS/HR Epinephrine HCl 250 ml @ 7.5 mls/hr Q24H IV 07/09/24 17:00 07/10/24 05:30 7.5 MLS/HR Pantoprazole Sodium 40 mg DAILY IV 07/10/24 10:00 07/10/24 08:48 40 MG Fentanyl Citrate 250 ml @ 2.5 mls/hr Q24H IV 07/09/24 17:30 07/10/24 13:24 27.5 MLS/HR Hydrocortisone Sodium Succinate 100 mg Q8H IV 07/09/24 17:44 07/10/24 08:48 100 MG Albumin Human 100 ml @ 100 mls/hr PRN PRN IV 07/09/24 18:30 07/09/24 20:25 100 MLS/HR Propofol 100 ml @ 2.79 mls/hr Q24H IV 07/09/24 20:00 07/10/24 13:26 11.16 MLS/HR Dopamine HCl/ Dextrose 250 ml @ 17.981 mls/ hr [id number] IV 07/10/24 06:30 Sodium Bicarbonate 100 ml/Dextrose 1,100 ml @ 50 mls/hr Q22H IV 07/10/24 10:00 07/10/24 12:19 50 MLS/HR objective Gen: Intubated lungs: Coarse breath sounds cvs: no rub abd: soft, bowel sounds diminished ext: + edema, induration/erythema in right lower extremity laboratory and microbiology Laboratory Tests 07/10/24 10:11 Test 07/10/24 10:11 Range/Units Serum Glucose 172 H 74-106 mg/dL Assessment/Plan IMP: 1) ESRD on HD 2) hyperkalemia 3) uremic acidosis / lactic acidosis 4) septic shock with gram-negative anabella bacteremia 5) working diagnosis of possible necrotizing fasciitis of right lower extremity 6) anemia REC: - dialysis again for solute removal, no ultrafiltration due to profound shock - we will continue to evaluate daily for kidney replacement therapy - overall poor prognosis Plan discussed with: Other CHIRAG BATISTA MD Jul 10, 2024 14:44
[2024-07-10] MEDS ORDERED: ATOR40TA52 PO (16:34)
[2024-07-10] MEDS ORDERED: APIX5TAB PO (16:34)
[2024-07-10] MEDS ORDERED: RANO500T3 PO (16:34)
[2024-07-10] MEDS ORDERED: ALLO300T2 PO (16:34)
[2024-07-10] MEDS ORDERED: HYDR-3682 PO (16:34)
[2024-07-10] MEDS ORDERED: CALC667C PO (16:39)
[2024-07-10] MEDS ORDERED: CHOL20007 PO (16:39)
[2024-07-10] MEDS ORDERED: SILD20TA12 PO (16:39)
[2024-07-10] MEDS: SODIUM CHL 0.9% 1000 ML BAG XX ONE (16:44)
[2024-07-10] MEDS: DEXTROSE (50%) 50ML SYRG IV PRN (18:10)
--- NOTE | 2024-07-10 20:20 | DVH ---
INDICATION: evaluate for liver cirrhosis/ abscess TECHNIQUE: Multiple real-time sonographic images were obtained of the right upper quadrant. COMPARISON: None FINDINGS: The liver demonstrates homogeneous echotexture without focal mass lesions. The liver measu res 16.2 cm. There is no intrahepatic or extrahepatic ductal dilatation. The common duct measures 0.6 cm. The gallbladder is without evidence of stone or sludge. The gallbladder wall measures 0.3 cm and is within normal limits. The right kidney measures 11.5 cm. The right kidney is normal in contour, size, and shape. The echo genicity is normal. There is no hydronephrosis. Simple cyst is seen in the inferior pole of the righ t kidney measuring up to 2.3 cm. Status post left nephrectomy. The pancreas is not well visualized due to overlying bowel gas. IMPRESSION: 1. Unremarkable right upper quadrant sonogram.
--- NOTE | 2024-07-10 21:57 | DVHPN2 ---
Progress Note - Dictate Date Seen: Jul 10, 2024 Has the PT tested + for MRSA If YES, has PT been informed?: No Medical Necessity Reason Pt with a Central, PICC or Fol: Yes The following are medically ne: Central Line Subjective Patient was seen and evaluated in follow up in the ICU. Patient was intubated yesterday evening due to respiratory failure. Patient receiving vasopressors for hemodynamic support. WBC 15.9, HGB 7.4, HCT 23.8. Echocardiogram shows dilated cardiomyopathy with EF of only 25%. vital signs Vital Sign Date Time Temp Pulse Resp B/P (MAP) Pulse Ox O2 Delivery O2 Flow Rate FiO2 07/10/24 15:54 40 07/10/24 15:54 26 100 Mechanical Ventilator+ 07/10/24 15:46 97.8 84 206/16 (79) 97.8 180/70 (106) 07/09/24 16:41 2 Total Intake and Output 07/09/24 07/09/24 07/10/24 15:00 23:00 07:00 Intake Total 208.6500 ml 997.074 ml 1260.374 ml Balance 208.6500 ml 997.074 ml 1260.374 ml medications Current Medications Medications Dose Ordered Sig/Rey Route Start Time Stop Time Status Last Admin Dose Admin Vancomycin HCl 0 ml @ 0 mls/hr UD IV 07/08/24 17:00 Sodium Chloride 10 ml Q8HR IV 07/09/24 06:00 07/10/24 10:24 10 ML Vasopressin 20 units/Sodium Chloride 100 ml @ 9 mls/hr Q11H7M IV 07/09/24 13:15 07/10/24 08:50 9 MLS/HR Norepinephrine Bitartrate 32 mg/ Sodium Chloride 250 ml @ 0.938 mls/ hr Q24H IV 07/09/24 15:30 07/10/24 08:06 14.063 MLS/HR Phenylephrine HCl 80 mg/Sodium Chloride 250 ml @ 7.5 mls/hr Q24H IV 07/09/24 15:45 07/10/24 08:08 33.75 MLS/HR Diagnostic Test (Pha) 1 strip Q4HR 07/09/24 18:00 07/10/24 13:53 1 STRIP Meropenem 50 ml @ 17 mls/hr Q12HR IV 07/10/24 10:00 07/10/24 08:50 17 MLS/HR Epinephrine HCl 250 ml @ 7.5 mls/hr Q24H IV 07/09/24 17:00 07/10/24 05:30 7.5 MLS/HR Pantoprazole Sodium 40 mg DAILY IV 07/10/24 10:00 07/10/24 08:48 40 MG Fentanyl Citrate 250 ml @ 2.5 mls/hr Q24H IV 07/09/24 17:30 07/10/24 13:24 27.5 MLS/HR Hydrocortisone Sodium Succinate 100 mg Q8H IV 07/09/24 17:44 07/10/24 08:48 100 MG Albumin Human 100 ml @ 100 mls/hr PRN PRN IV 07/09/24 18:30 07/09/24 20:25 100 MLS/HR Propofol 100 ml @ 2.79 mls/hr Q24H IV 07/09/24 20:00 07/10/24 13:26 11.16 MLS/HR Dopamine HCl/ Dextrose 250 ml @ 17.981 mls/ hr [id number] IV 07/10/24 06:30 Sodium Bicarbonate 100 ml/Dextrose 1,100 ml @ 50 mls/hr Q22H IV 07/10/24 10:00 07/10/24 12:19 50 MLS/HR objective GENERAL: Intubated on ventilator. Morbidly obese. LUNGS: Decreased breath sounds. CARDIOVASCULAR: Heart sounds are good. ABDOMEN: Soft. EXT: Significant edema to BLE, more significant on RLE. SKIN: Ecchymosis to right upper thigh. laboratory and microbiology Laboratory Tests 07/10/24 10:11 Test 07/10/24 10:11 Range/Units Serum Glucose 172 H 74-106 mg/dL Problem List Hypotension secondary to septic shock. Coronary artery disease status post CABG in 2021. History of hypertension. Hyperlipidemia. Hyperkalemia. Acute anemia. Thrombocytopenia. Transaminitis. End-stage renal disease on hemodialysis. Renal cell carcinoma status post left nephrectomy. COPD. Asthma. Morbid obesity. Dilated cardiomyopathy. Assessment/Plan Continued all current supportive medical care. Dopamine drip. GI prophylactics. IV antibiotics as ordered. Vasopressors for hemodynamic support. Additional plan as per the hospital course. Critical care time of 45 minutes provided to include time spent evaluation of patient at bedside, when appropriate patient/family education for diagnosis, treatment plan, review of pertinent medical information and discussion of care with specialty providers and PCP. Mechanical ventilator parameters, treatment and adjustments have personally been reviewed by me and treatment plan by basket patcher has also been reviewed. Plan discussed with: Other FRIDA SIMMONS MD Jul 10, 2024 16:29
--- NOTE | 2024-07-10 22:29 | DVHPN2 ---
Progress Note - Dictate Date Seen: Jul 10, 2024 Has the PT tested + for MRSA If YES, has PT been informed?: No Medical Necessity Reason Pt with a Central, PICC or Fol: Yes The following are medically ne: Central Line, Schafer Catheter Reason for schafer catheter: Strict I&O Subjective Patient seen and examined at bedside. Sedated, intubated on mechanical ventilator. Overnight events reviewed vital signs Vital Sign Date Time Temp Pulse Resp B/P (MAP) Pulse Ox O2 Delivery O2 Flow Rate FiO2 07/10/24 22:06 64 26 151/57 (88) 97 30 07/10/24 21:46 98.8 209.8 07/10/24 20:00 Mechanical Ventilator+ 07/09/24 16:41 2 Total Intake and Output 07/09/24 07/09/24 07/10/24 15:00 23:00 07:00 Intake Total 208.6500 ml 997.074 ml 1260.374 ml Balance 208.6500 ml 997.074 ml 1260.374 ml medications Current Medications Medications Dose Ordered Sig/Rey Route Start Time Stop Time Status Last Admin Dose Admin Vancomycin HCl 0 ml @ 0 mls/hr UD IV 07/08/24 17:00 Sodium Chloride 10 ml Q8HR IV 07/09/24 06:00 07/10/24 21:11 10 ML Vasopressin 20 units/Sodium Chloride 100 ml @ 9 mls/hr Q11H7M IV 07/09/24 13:15 07/10/24 08:50 9 MLS/HR Norepinephrine Bitartrate 32 mg/ Sodium Chloride 250 ml @ 0.938 mls/ hr Q24H IV 07/09/24 15:30 07/10/24 08:06 14.063 MLS/HR Phenylephrine HCl 80 mg/Sodium Chloride 250 ml @ 7.5 mls/hr Q24H IV 07/09/24 15:45 07/10/24 08:08 33.75 MLS/HR Diagnostic Test (Pha) 1 strip Q4HR 07/09/24 18:00 07/10/24 21:11 1 STRIP Meropenem 50 ml @ 17 mls/hr Q12HR IV 07/10/24 10:00 07/10/24 21:10 17 MLS/HR Epinephrine HCl 250 ml @ 7.5 mls/hr Q24H IV 07/09/24 17:00 07/10/24 05:30 7.5 MLS/HR Pantoprazole Sodium 40 mg DAILY IV 07/10/24 10:00 07/10/24 08:48 40 MG Fentanyl Citrate 250 ml @ 2.5 mls/hr Q24H IV 07/09/24 17:30 07/10/24 13:24 27.5 MLS/HR Hydrocortisone Sodium Succinate 100 mg Q8H IV 07/09/24 17:44 07/10/24 17:53 100 MG Albumin Human 100 ml @ 100 mls/hr PRN PRN IV 07/09/24 18:30 07/09/24 20:25 100 MLS/HR Propofol 100 ml @ 2.79 mls/hr Q24H IV 07/09/24 20:00 07/10/24 17:54 16.74 MLS/HR Dopamine HCl/ Dextrose 250 ml @ 17.981 mls/ hr [id number] IV 07/10/24 06:30 Sodium Bicarbonate 100 ml/Dextrose 1,100 ml @ 50 mls/hr Q22H IV 07/10/24 10:00 07/10/24 12:19 50 MLS/HR Dextrose 50 ml PRN PRN IV 07/10/24 17:45 07/10/24 18:10 50 ML objective Gen.: Patient lying in bed in medical ICU. Sedated, intubated on mechanical ventilator. Head: Normocephalic, atraumatic. Eyes: PERRLA. Ears: Normal external anatomy. Throat: Endotracheal tube and orogastric tube in place. Neck: Supple, trachea midline. Chest: Transmitted breath sounds bilaterally. Decreased air entry bilaterally. No wheezing. Bibasilar crackles. Cardiovascular: Positive S1, positive S2. Regular rate and rhythm. Abdomen: Positive bowel sounds in all 4 quadrants. Soft, nontender, nondistended. : Schafer in place. Normal external genitalia. Rectal: Deferred. Skin: Warm, dry. Intact. Extremities: 2+ radial pulses bilaterally. No lower extremity edema. Neuro: Sedated. laboratory and microbiology Laboratory Tests 07/10/24 10:11 Test 07/10/24 10:11 Range/Units Serum Glucose 172 H 74-106 mg/dL Assessment/Plan Impression: Acute hypoxic respiratory failure On mechanical ventilator Pulmonary edema Necrotizing fasciitis Septic shock Morbid obesity Events: Remains on vent support On AC mode; RR 22, VT 500, PEEP 8, FiO2 40% Sedated on Propofol, Fentanyl ABG reviewed, notable for acidemia d/t metabolic acidosis. On multiple pressors for hemodynamic support Levophed 30 mcg/min, vasopressin 0.03 units/min, Wojciech-Synephrine 180 mcg/min, epinephrine 1 mcg/min Titrate to keep MAP above 65 mmHg/SBP above 90 mmHg. IV fluids - D5W + 2 amps bicarb at 50 ml/hr. Continue antibiotics Continue IV steroids HD per Nephrology Monitor renal function Monitor electrolytes. Supplement as necessary. Follow up Nephrology recommendations Labs and imaging reviewed. Rest of plan as noted below. Plan: s/p intubation on mechanical ventilator. CXR image and report reviewed. Left mid and lower lung zone opacification which may represent pneumonia with possible small left-sided pleural effusion. Devices in place. On AC mode; RR 16 -->22, VT 500, PEEP 5 -->8, FiO2 100 -->40% Titrate FIO2 to keep O2 saturation above 90%. VAP bundle. Daily ABG and CXR while intubated Sedate for ventilator synchrony Continue antibiotics. F/u cultures. Continue IV steroids On multiple pressors for hemodynamic support Titrate to keep MAP above 65 mmHg/SBP above 90 mmHg. Monitor renal function Monitor electrolytes. Supplement as necessary. Monitor ins and outs. Maintain euvolemia. GI prophylaxis. DVT prophylaxis. Prognosis: Poor given patient's multiple co-morbidities. Condition: Critical Rest of plan per hospitalist and other consultants. A total of 35 minutes of critical care time was spent reviewing the patient record, examining the patient, making a diagnostic and therapeutic plan, discussing this plan with the medical personnel, following up on diagnostic studies and following the patient for clinical stability excluding any and all procedures. At least 50% of this time was spent in direct, [id number] contact. Thank you Dr. Johnson, for allowing me to participate in this patient's care. Further recommendations will depend on the patient's clinical course. Please do not hesitate to contact me if you have any questions or concerns. This medical document was created using an electronic medical record system with [employer] system. Although these documentations are being carefully reviewed, there may still be some phonetic and typographical changes. The errors are purely typographical, due to imperfection on the software program, and do not reflect any compromise in the patient's medical care. Plan discussed with: Other (JACEK Marsh/JACEK Amor) Critical Care Time(min): 35 EB DEJESUS MD Jul 10, 2024 22:29
--- NOTE | 2024-07-10 22:42 | DVHPN2 ---
Consult Progress Note Date Seen: Jul 10, 2024 Subjective Patient reports: Other (was on 4 pressure overnight and since come down to 2 , levofed and vasopressin. high lactic acid of 15.5 and on minimal vent . patients right thigh has a large rash covering the anterior portion and the postior side has drainage and large skin tear and edema ) Objective vital signs Vital Sign Date Time Temp Pulse Resp B/P (MAP) Pulse Ox O2 Delivery O2 Flow Rate FiO2 07/10/24 22:06 64 26 151/57 (88) 97 30 07/10/24 21:46 98.8 209.8 07/10/24 20:00 Mechanical Ventilator+ 07/09/24 16:41 2 Total Intake and Output 07/09/24 07/09/24 07/10/24 15:00 23:00 07:00 Intake Total 208.6500 ml 997.074 ml 1260.374 ml Balance 208.6500 ml 997.074 ml 1260.374 ml medications Current Medications Medications Dose Ordered Sig/Rey Route Start Time Stop Time Status Last Admin Dose Admin Vancomycin HCl 0 ml @ 0 mls/hr UD IV 07/08/24 17:00 Sodium Chloride 10 ml Q8HR IV 07/09/24 06:00 07/10/24 21:11 10 ML Vasopressin 20 units/Sodium Chloride 100 ml @ 9 mls/hr Q11H7M IV 07/09/24 13:15 07/10/24 08:50 9 MLS/HR Norepinephrine Bitartrate 32 mg/ Sodium Chloride 250 ml @ 0.938 mls/ hr Q24H IV 07/09/24 15:30 07/10/24 08:06 14.063 MLS/HR Phenylephrine HCl 80 mg/Sodium Chloride 250 ml @ 7.5 mls/hr Q24H IV 07/09/24 15:45 07/10/24 08:08 33.75 MLS/HR Diagnostic Test (Pha) 1 strip Q4HR 07/09/24 18:00 07/10/24 21:11 1 STRIP Meropenem 50 ml @ 17 mls/hr Q12HR IV 07/10/24 10:00 07/10/24 21:10 17 MLS/HR Epinephrine HCl 250 ml @ 7.5 mls/hr Q24H IV 07/09/24 17:00 07/10/24 05:30 7.5 MLS/HR Pantoprazole Sodium 40 mg DAILY IV 07/10/24 10:00 07/10/24 08:48 40 MG Fentanyl Citrate 250 ml @ 2.5 mls/hr Q24H IV 07/09/24 17:30 07/10/24 13:24 27.5 MLS/HR Hydrocortisone Sodium Succinate 100 mg Q8H IV 07/09/24 17:44 07/10/24 17:53 100 MG Albumin Human 100 ml @ 100 mls/hr PRN PRN IV 07/09/24 18:30 07/09/24 20:25 100 MLS/HR Propofol 100 ml @ 2.79 mls/hr Q24H IV 07/09/24 20:00 07/10/24 17:54 16.74 MLS/HR Dopamine HCl/ Dextrose 250 ml @ 17.981 mls/ hr [id number] IV 07/10/24 06:30 Sodium Bicarbonate 100 ml/Dextrose 1,100 ml @ 50 mls/hr Q22H IV 07/10/24 10:00 07/10/24 12:19 50 MLS/HR Dextrose 50 ml PRN PRN IV 07/10/24 17:45 07/10/24 18:10 50 ML Physical Exam: - General: Intubated and sedated. - Neck: Supple. No masses. - HEENT: PERRL. Normal lids and conjunctiva. Moist mucous membranes. Oropharynx without lesions, exudates, or excessive erythema. Normal appearance of the external aspects of the nose and ears. - Heart: Regular rhythm, normal rate. No murmur. No lower extremity edema. - Lungs: Normal respiratory effort. Clear to auscultation bilaterally. No wheezes. No crackles. - Abdomen: Soft. Non-tender. Non-distended. No masses or abdominal hernia. - MSK: Right thigh tenderness. Normal strength and tone in all four limbs. - Skin: Warm and dry, no rashes. - Neuro: Unresponsive due to sedation. No facial droop or slurred speech. Extra- ocular movements intact. - Psych: Unable to assess due to sedation. laboratory and microbiology Laboratory Tests 07/10/24 10:11 Test 07/10/24 10:11 Range/Units Serum Glucose 172 H 74-106 mg/dL Problem List/Assessment/Plan Problems(with codes): (1) Necrotizing fasciitis of lower leg (2) Elevated liver enzymes (3) End-stage renal disease on hemodialysis (4) Acute kidney failure, unspecified (5) Chronic kidney disease, unspecified (6) Severe anemia (7) Sepsis, unspecified organism (8) Pneumonia, unspecified organism (9) Generalized weakness (10) Sepsis (11) Renal failure (12) Purpura (13) Pancytopenia (14) Pneumonia Problem List/Assessment/Plan ID Problem List: - Septic shock - Necrotizing fasciitis of right lower extremity - End-stage renal disease on hemodialysis - Kidney cancer status post nephrectomy - Coronary artery disease - Hyperlipidemia - Status post CABG Assessment This is a 58 y.o. male with a past medical history of kidney cancer status post nephrectomy, end-stage renal disease on hemodialysis, coronary artery disease, hyperlipidemia, and status post CABG, who presents with chest pain, fever, and right thigh tenderness concerning for necrotizing fasciitis. On admission, the patient had a temperature of 104F, hypotension (BP 78/45 mmHg), lactic acid 3.8 mmol/L, elevated AST (3044 U/L) and ALT (560 U/L), WBC count 37,000/mm, hemoglobin 7.5 g/dL, and platelets 62,000/mm. Physical examination notable for right thigh tenderness and generalized weakness. Initial imaging included CT scan of the right thigh showing subcutaneous edema with no gas in soft tissues and small bilateral knee effusions. Chest CT revealed bronchiovascular crowding; underlying pulmonary vascular condition cannot be excluded. Blood cultures are preliminarily positive for gram-negative rods. Respiratory cultures show gram-positive issa. An anaerobic bottle was positive for gram- negative rods. Laboratory studies reveal persistent elevation of liver enzymes with AST 3009 U/L and ALT 1976 U/L. Lactic acid increased to 15 mmol/L, platelets decreased to 32,000/mm. Peripheral smear shows Elizabeth cells. Potassium is elevated at 6 mEq/L. The patient is intubated and sedated for acute hypoxic respiratory failure and altered mental status. 07/10: Undergoing ultra filtration and whitecount is elevated. Pressures are starting to come down since initiating meropenem and platelets are still low at 57 Plan: - likely etiology of ongoing septic shock is bacterial given gram negative anabella in blood , would not initiate any selective anaerobic coverage at this time - continue vancomycin empirically in setting of septic shock - would further evaluate patients liver failure , elevated platelets and elevated PT, INR - recommend abdominal ultrasound to evaluate for cirrhosis and patients elevated lactic acid - evaluate DIC and TTP and burst blood smear in setting of shock , recommend LDH haptoglobin , fibrinogen level - MAAHA is suspected after test results or if TTP is suspected recommend patient get plasma exchange - test for [id number] - Antibiotics: Continue meropenem for broad-spectrum coverage targeting ESBL e.coli bacteremia - Cultures: Monitor blood culture results and adjust antibiotics as needed. - Surgical Consultation: Agree with general surgeon that clinical picture favors hematoma vs cellulitis , no signs of necrotizing infection at this time - Infectious Workup: Follow up on hepatitis screening; recommend HIV screening due to elevated liver enzymes. - Supportive Care: Continue vasopressor support with norepinephrine (Levophed) and epinephrine as needed for septic shock. - Laboratory Monitoring: Recheck laboratory values including CBC, CMP, lactic acid, and coagulation profile. Monitor liver function tests. - Renal Management: Coordinate with nephrology for hemodialysis management. - Isolation Precautions: Standard precautions. Authorized and Performed by: sangeetha melenrdez Total critical care time: Approximately 76 minutes Due to a high probability of clinically significant, life threatening deterioration, the patient required my highest level of preparedness to intervene emergently and I personally spent this critical care time directly and personally managing the patient. This critical care time included obtaining a history; examining the patient; pulse oximetry; ordering and review of studies; arranging urgent treatment with development of a management plan; evaluation of patient's response to treatment; frequent reassessment; and, discussions with other providers. This critical care time was performed to assess and manage the high probability of imminent, life-threatening deterioration that could result in multi-organ failure. It was exclusive of separately billable procedures and treating other patients and teaching time. Plan discussed with: Patient SANGEETHA MELENDREZ MD Jul 10, 2024 22:42
[2024-07-11] VITALS (124 sets, daily range): BP systolic 97–214; BP diastolic 10–82; PULSE 67–74; RESP 20–26; TEMP 97.7–99.3; O2SAT 90–100
[2024-07-11 04:22] LABS: Hemoglobin 7.1 g/dL (13.5-17.5)
[2024-07-11 04:26] LABS: Hematocrit 21.6 % (41.0-53.0); Mean Corpuscular Hemoglobin 36.3 pg (28.0-32.0); Red Blood Cells 1.97 10^6/uL (4.5-5.90); Red Cell Distribution Width 16.7 % (11.8-14.3); White Blood Cell 19.1 10^3/uL (4.4-10.8)
[2024-07-11 04:36] LABS: Basophils % (manual) 0 (0.0-2.0); Blast Cells 0; Eosinophils % (manual) 0 (0-7); Metamyelocytes % 0; Myelocytes % 0; Promyelocytes % 0; Reactive Lymphocytes 0
[2024-07-11 04:53] LABS: Albumin 3.2 g/dL (3.2-4.8); Anion Gap 24 (5-15); Potassium 4.6 mmol/L (3.5-5.1); Sodium 139 mmol/L (136-145)
[2024-07-11 05:27] LABS: Alanine Aminotransferase 3742 U/L (7-40); Aspartate Aminotransferase > 6000 U/L (13-40)
[2024-07-11 05:29] LABS: Alkaline Phosphatase 131 U/L (46-116); Blood Urea Nitrogen 37 mg/dL (9-23); Carbon Dioxide 18 mmol/L (20-31); Chloride 97 mmol/L (98-107); Glucose 108 mg/dL (74-106)
[2024-07-11 05:30] LABS: Bilirubin, Total 2.9 mg/dL (0.2-1.0); Calcium 7.9 mg/dL (8.7-10.4)
[2024-07-11 05:40] LABS: INR 3.63 (0.9-1.15); Partial Thromboplastin Time 38.4 SEC (24.5-34.5); Prothrombin Time 35.6 sec (9.3-11.8)
[2024-07-11 06:50] LABS: Band Neutrophils % (manual) 25; Lymphocytes % (manual) 3 (10.0-50.0); Macrocytosis Moderate; Monocytes % (manual) 4 (0-12); Platelet Estimate Decreased; Smudge Cells 2 /100 WBC
[2024-07-11 06:52] LABS: Stomatocytes Few
[2024-07-11 07:36] LABS: Platelet Count (auto) 32 10^3/uL (140-450)
[2024-07-11 08:42] LABS: Base Excess -5.7 mmol/L (-2.0-3.0)
--- NOTE | 2024-07-11 09:13 | DVH ---
CHEST RADIOGRAPH Indication: vent Technique: Single frontal view of the chest was obtained COMPARISON: XY CHEST XRAY 1 VIEW on DOS: 07/10/24, FINDINGS: Lines and Tubes: Median sternotomy. Endotracheal tube terminates 2.6 cm above the quin. Enteric tu be terminates below the diaphragm outside the field of view. Lungs: Similar to slightly improving pulmonary vascular congestion. Left basilar airspace disease. Pleura: Possible small left pleural effusion. No pneumothorax. Cardiomediastinal contours: Stable Bones: Unremarkable IMPRESSION: 1. Endotracheal tube terminates 2.6 cm above the quin. 2. Similar to slightly improving pulmonary vascular congestion. 3. Similar left basilar airspace disease. Possible small left pleural effusion.
--- NOTE | 2024-07-11 09:18 | DVHPN2 ---
Progress Note Date Seen: Jul 11, 2024 Has the PT tested + for MRSA If YES, has PT been informed?: No Medical Necessity Reason Pt with a Central, PICC or Fol: Yes The following are medically ne: Central Line, Schafer Catheter Reason for schafer catheter: Strict I&O Subjective Review of Systems: HEENT:Normal, CVS:Normal, RESPIRATORY:Normal, GI:Normal, :Normal, MSK:Normal (The right thigh unchanged in exam. No progression of any cellulitis no crepitus calf blister has sloughed off with serous drainage due to 3rd spacing.), NEURO:Normal Objective vital signs Vital Sign Date Time Temp Pulse Resp B/P (MAP) Pulse Ox O2 Delivery O2 Flow Rate FiO2 07/11/24 08:29 110/53 07/11/24 08:16 99.0 71 26 95 210.2 07/11/24 08:02 30 07/11/24 08:01 Mechanical Ventilator+ 07/09/24 16:41 2 Total Intake and Output 07/10/24 07/10/24 07/11/24 15:00 23:00 07:00 Intake Total 1639.160 ml 961.173 ml 798.743 ml Output Total 0 ml 0 ml Balance 1639.160 ml 961.173 ml 798.743 ml medications Current Medications Medications Dose Ordered Sig/Rey Route Start Time Stop Time Status Last Admin Dose Admin Vancomycin HCl 0 ml @ 0 mls/hr UD IV 07/08/24 17:00 Sodium Chloride 10 ml Q8HR IV 07/09/24 06:00 07/11/24 05:43 10 ML Vasopressin 20 units/Sodium Chloride 100 ml @ 9 mls/hr Q11H7M IV 07/09/24 13:15 07/11/24 08:29 9 MLS/HR Norepinephrine Bitartrate 32 mg/ Sodium Chloride 250 ml @ 0.938 mls/ hr Q24H IV 07/09/24 15:30 07/10/24 08:06 14.063 MLS/HR Phenylephrine HCl 80 mg/Sodium Chloride 250 ml @ 7.5 mls/hr Q24H IV 07/09/24 15:45 07/10/24 08:08 33.75 MLS/HR Diagnostic Test (Pha) 1 strip Q4HR 07/09/24 18:00 07/11/24 05:43 1 STRIP Meropenem 50 ml @ 17 mls/hr Q12HR IV 07/10/24 10:00 07/11/24 07:16 17 MLS/HR Epinephrine HCl 250 ml @ 7.5 mls/hr Q24H IV 07/09/24 17:00 07/10/24 05:30 7.5 MLS/HR Pantoprazole Sodium 40 mg DAILY IV 07/10/24 10:00 07/11/24 07:15 40 MG Fentanyl Citrate 250 ml @ 2.5 mls/hr Q24H IV 07/09/24 17:30 07/11/24 07:13 27.5 MLS/HR Hydrocortisone Sodium Succinate 100 mg Q8H IV 07/09/24 17:44 07/11/24 07:15 100 MG Albumin Human 100 ml @ 100 mls/hr PRN PRN IV 07/09/24 18:30 07/09/24 20:25 100 MLS/HR Propofol 100 ml @ 2.79 mls/hr Q24H IV 07/09/24 20:00 07/10/24 17:54 16.74 MLS/HR Dopamine HCl/ Dextrose 250 ml @ 17.981 mls/ hr [id number] IV 07/10/24 06:30 Sodium Bicarbonate 100 ml/Dextrose 1,100 ml @ 50 mls/hr Q22H IV 07/10/24 10:00 07/11/24 07:14 50 MLS/HR Dextrose 50 ml PRN PRN IV 07/10/24 17:45 07/11/24 00:56 50 ML Examination: GENERAL:Normal, HEENT:Normal, NECK:Normal, LUNGS:Normal, CVS:Normal, ABDOMEN:Normal, MSK:Normal (The right thigh unchanged in exam. No progression of any cellulitis no crepitus calf blister has sloughed off with serous drainage due to 3rd spacing.), SKIN:Normal, NEURO:Normal, :Normal laboratory and microbiology Laboratory Tests 07/11/24 03:26 Test 07/11/24 03:26 Range/Units Serum Glucose 108 H 74-106 mg/dL Microbiology Date/Time Source Procedure Growth Status 07/09/24 19:55 Trachea Gram Stain - Final Resulted 07/09/24 19:55 Trachea Respiratory Culture - Preliminary Resulted 07/08/24 18:00 Blood Blood Culture - Final Escherichia coli - ESBL Complete Labs and/or images reviewed: Labs reviewed by me Problem List/Assessment/Plan Problem List/Assessment/Plan Septic. Continue to monitor right leg at this time no need for surgical debridement. Continue broad-spectrum antibiotics Continue to follow cultures We will need dialysis correction of electrolytes. Would consider blood transfusion. Continue to wean pressors patient has seen some improvement with colloid resuscitation. Plan discussed with: Other (nurse) My Orders My Orders Continue to medically maximize support Broad-spectrum antibiotics Await cultures HERBERT LAMAS Jr., MD Jul 11, 2024 09:18
[2024-07-11 10:14] LABS: Hematocrit 21.8 % (41.0-53.0); Hemoglobin 7.2 g/dL (13.5-17.5)
[2024-07-11 10:39] LABS: Lactic Acid w/Reflex 14.9 mmol/L (0.4-2.0)
[2024-07-11] MEDS: VANCOMYCIN 1GM/250ML KIT 250 ML IV ONE (11:28)
[2024-07-11] MEDS: SODIUM BICARB IV SCH (12:00)
[2024-07-11] MEDS: DEXTROSE 10% IV SCH (12:00)
--- NOTE | 2024-07-11 12:14 | DVHPN2 ---
Subjective Intubated and sedated On Fent and prop drips On Vasopressin and Levophed Changes from previous H/P or p: Changes Eyes: No Pain, No Vision change, No Conjunctivae inflammation, No Eyelid inflammation, No Other, No Redness ENT: No Ear pain, No Ear discharge, No Nose pain, No Nose discharge, No Nose congestion, No Mouth pain, No Mouth swelling, No Throat pain, No Throat swelling, No Other Cardiovascular: Chest Pain Respiratory: Cough Gastrointestinal: No Nausea, No Vomiting, No Abdominal Pain, No Diarrhea, No Constipation, No Melena, No Hematochezia, No Other Genitourinary: No Dysuria, No Frequency, No Incontinence, No Hematuria, No Retention, No Other Musculoskeletal: other, leg pain Skin: Other Objective Vitals Vital Signs Date Time Temp Pulse Resp B/P (MAP) Pulse Ox O2 Delivery O2 Flow Rate FiO2 07/11/24 11:53 73 07/11/24 11:36 24 96 Mechanical Ventilator+ 30 30 07/11/24 11:30 99.3 111/15 (47) 210.7 125/56 (79) 07/09/24 16:41 2 Intake/Output Intake and Output 07/11/24 07:00 Intake Total 3509.826 ml Output Total 0 ml Balance 3509.826 ml Intake Oral 0 ml IV Total 3149.826 ml Blood Product 360 ml Output Urine Total 0 ml General Appearance: Other (intubated and sedated) Lungs: Other (Rhonchi and crackles) Cardiovascular: Regular rate, Normal S1, Normal S2 Abdomen: Normal bowel sounds, Soft, No tenderness Extremities: Other (R thigh severe edema and tenderness and erythema with tight skin) Medications Current Medications Medications Dose Ordered Sig/Rey Route Start Time Stop Time Status Last Admin Dose Admin Vancomycin HCl 0 ml @ 0 mls/hr UD IV 07/08/24 17:00 Sodium Chloride 10 ml Q8HR IV 07/09/24 06:00 07/11/24 10:24 10 ML Vasopressin 20 units/Sodium Chloride 100 ml @ 9 mls/hr Q11H7M IV 07/09/24 13:15 07/11/24 08:29 9 MLS/HR Norepinephrine Bitartrate 32 mg/ Sodium Chloride 250 ml @ 0.938 mls/ hr Q24H IV 07/09/24 15:30 07/10/24 08:06 14.063 MLS/HR Phenylephrine HCl 80 mg/Sodium Chloride 250 ml @ 7.5 mls/hr Q24H IV 07/09/24 15:45 07/10/24 08:08 33.75 MLS/HR Diagnostic Test (Pha) 1 strip Q4HR 07/09/24 18:00 07/11/24 10:24 1 STRIP Meropenem 50 ml @ 17 mls/hr Q12HR IV 07/10/24 10:00 07/11/24 07:16 17 MLS/HR Epinephrine HCl 250 ml @ 7.5 mls/hr Q24H IV 07/09/24 17:00 07/10/24 05:30 7.5 MLS/HR Pantoprazole Sodium 40 mg DAILY IV 07/10/24 10:00 07/11/24 07:15 40 MG Fentanyl Citrate 250 ml @ 2.5 mls/hr Q24H IV 07/09/24 17:30 07/11/24 07:13 27.5 MLS/HR Hydrocortisone Sodium Succinate 100 mg Q8H IV 07/09/24 17:44 07/11/24 07:15 100 MG Albumin Human 100 ml @ 100 mls/hr PRN PRN IV 07/09/24 18:30 07/09/24 20:25 100 MLS/HR Propofol 100 ml @ 2.79 mls/hr Q24H IV 07/09/24 20:00 07/11/24 09:37 16.74 MLS/HR Dopamine HCl/ Dextrose 250 ml @ 17.981 mls/ hr [id number] IV 07/10/24 06:30 Sodium Bicarbonate 100 ml/Dextrose 1,100 ml @ 50 mls/hr Q22H IV 07/10/24 10:00 07/11/24 07:14 50 MLS/HR Dextrose 50 ml PRN PRN IV 07/10/24 17:45 07/11/24 09:44 50 ML Laboratory Results Laboratory Tests 07/11/24 03:26 07/11/24 09:04 Chemistry Test 07/11/24 03:26 Albumin 3.2 g/dL (3.2-4.8) Calcium Level 7.9 mg/dL (8.7-10.4) L Magnesium Level 2.0 mg/dL (1.6-2.6) Total Protein 5.0 g/dL (5.7-8.2) L Coagulation Test 07/10/24 19:58 07/10/24 22:02 07/11/24 03:26 Fibrinogen mg/dL (177-375) 433 mg/dL (177-375) H D-Dimer, Quantitative 10.75 mg/L FEU (0.0-0.49) H 11.78 mg/L FEU (0.0-0.49) H Prothrombin Time 35.6 sec (9.3-11.8) H Prothrombin Time INR 3.63 (0.9-1.15) H Activated Partial Thromboplast Time 38.4 SEC (24.5-34.5) H LFT Test 07/11/24 03:26 Alanine Aminotransferase (ALT) 3742 U/L (7-40) H Alkaline Phosphatase 131 U/L (46-116) H Aspartate Amino Transferase (AST) > 6000 U/L (13-40) H Total Bilirubin 2.9 mg/dL (0.2-1.0) H Blood Gas Results Test 07/11/24 08:09 Arterial Blood pH 7.427 (7.350-7.450) FiO2 % 30.0 Microbiology Microbiology Date/Time Source Procedure Growth Status 07/09/24 19:55 Trachea Gram Stain - Final Resulted 07/09/24 19:55 Trachea Respiratory Culture - Preliminary Resulted 07/08/24 18:00 Blood Blood Culture - Final Escherichia coli - ESBL Complete Assessment/Plan Assessment/Plan Severe sepsis with septic shock most likely due to right thigh infection possibly necrotizing fasciitis and also possible underlying pneumonia Bacteremia with Gram-negative rods Rule out RLE necrotizing fasciitis Metabolic acidosis ESRD on HD h/o kidney CA s/p nephrectomy Hyperkalemia Thrombocytopenia Possible LLL pneumonia ?Left pleural effusion CAD Mixed hyperlipidemia DM2 Obesity PLAN: 07/09/2024: Broad spectrum antibiotics Surgical consult, Dr. Ghotra Nephrology consult Hyperkalemia protocol Emergency hyperkalemia protocol, D50, insulin, calcium gluconate, Sodium bicarbonate IV fluids D5W to prevent hypoglycemia Vasopressors as needed No anticoagulation due to the thrombocytopenia NPO for possible surgical intervention after hemodialysis tonight Discussed with Dr. Mauro, he is trying to get hemodialysis done as soon as possible Discussed with Dr. Ghotra, he is planning on possible surgical intervention on his right leg tonight after dialysis Consult infectious disease Blood culture shows Gram-negative rods Get urine culture Full code Prognosis is guarded Discussed with the family at the bedside 07/10/24: Metabolic acidosis: NaBicarb x 2 amps, Hypoglycemia: Change fluids to D10 with 2 amps NaBicarb/liter at 50 ml/hr ESRD: HD per nephrology Sepsis with septic shock: IV antibiotics Meropenem and Vancomycin Right thigh cellulitis / possible underlying necrotizing fasciitis: IV antibiotics, Surgical consult Hyperkalemia: LoKelma given, repeat labs, HD Bacteremia w G- Rods: Meropenem Thrombocytopenia due to sepsis: 1 unit platelets given, repeat labs Sedation as needed, pulmonary consult ID consult Discussed with daughter at the bedside Full code 07/11/24: Hypoglycemia: Increase D10 to 100 ml/hr Sepsis w septic shock: Pressors R leg infection w bacteremia E. Coli ESBL: Meropenem Vanco Thrombocytopenia due to sepsis: Transfuse one units platelets Anemia: Transfuse one RBCs Coagulopathy: Vit K IV ESRD: Nephrology ID consult on Acute hypoxic respiratory failure: Mechanical ventilation Discussed with at the bedside Prognosis: Guarded Plan discussed with: Other My Orders Orders - DG AQUINO MD Procedure Category Date Status Time Cleanse Wound With Ns EV 07/10/24 In Process 11:58 Dextrose 10% W/Sodium PHA 07/11/24 Verified Bicarb 50meq/50ml 12:00 Phytonadione Ivpb PHA 07/11/24 Verified Vitamin K 12:00 Packedcells -Active BBK 07/11/24 Verified Bleeding 12:00 Pheresis Platelets BBK 07/11/24 Verified 12:00 Type And Screen BBK 07/11/24 Verified 12:00 Comprehensive LAB 07/12/24 Verified Metabolic Panel 04:00 Complete Blood Count LAB 07/12/24 Verified 04:00 Magnesium LAB 07/12/24 Verified 04:00 PTPTT LAB 07/12/24 Verified 04:00 Chest Portable XY 07/12/24 Verified 06:00 Abg W/ Co-Ox RT 07/12/24 Verified 06:00 Date of Service: Jul 11, 2024 Billing Provider: DG AQUINO MD Common Visit Codes: NOT BILLABLE DG AQUINO MD Jul 11, 2024 12:14
[2024-07-11] MEDS: phytonadione 10 MG in SODIUM CHL 0.9% 50 ML IV ONE (14:51)
--- NOTE | 2024-07-11 16:10 | DVHPN2 ---
Progress Note - Dictate Date Seen: Jul 11, 2024 Has the PT tested + for MRSA If YES, has PT been informed?: No Medical Necessity Reason Pt with a Central, PICC or Fol: Yes The following are medically ne: Central Line, Schafer Catheter Reason for schafer catheter: Strict I&O Subjective vasopressor requirements improved slightly vital signs Vital Sign Date Time Temp Pulse Resp B/P (MAP) Pulse Ox O2 Delivery O2 Flow Rate FiO2 07/11/24 16:00 30 07/11/24 15:59 24 96 Mechanical Ventilator+ 07/11/24 15:46 99.0 72 133/42 (72) 210.2 147/65 (92) 07/09/24 16:41 2 Total Intake and Output 07/10/24 07/10/24 07/11/24 15:00 23:00 07:00 Intake Total 1639.160 ml 961.173 ml 909.493 ml Output Total 0 ml 0 ml Balance 1639.160 ml 961.173 ml 909.493 ml medications Current Medications Medications Dose Ordered Sig/Rey Route Start Time Stop Time Status Last Admin Dose Admin Vancomycin HCl 0 ml @ 0 mls/hr UD IV 07/08/24 17:00 Sodium Chloride 10 ml Q8HR IV 07/09/24 06:00 07/11/24 10:24 10 ML Vasopressin 20 units/Sodium Chloride 100 ml @ 9 mls/hr Q11H7M IV 07/09/24 13:15 07/11/24 08:29 9 MLS/HR Norepinephrine Bitartrate 32 mg/ Sodium Chloride 250 ml @ 0.938 mls/ hr Q24H IV 07/09/24 15:30 07/10/24 08:06 14.063 MLS/HR Phenylephrine HCl 80 mg/Sodium Chloride 250 ml @ 7.5 mls/hr Q24H IV 07/09/24 15:45 07/10/24 08:08 33.75 MLS/HR Diagnostic Test (Pha) 1 strip Q4HR 07/09/24 18:00 07/11/24 14:17 1 STRIP Meropenem 50 ml @ 17 mls/hr Q12HR IV 07/10/24 10:00 07/11/24 07:16 17 MLS/HR Epinephrine HCl 250 ml @ 7.5 mls/hr Q24H IV 07/09/24 17:00 07/10/24 05:30 7.5 MLS/HR Pantoprazole Sodium 40 mg DAILY IV 07/10/24 10:00 07/11/24 07:15 40 MG Fentanyl Citrate 250 ml @ 2.5 mls/hr Q24H IV 07/09/24 17:30 07/11/24 14:57 27.5 MLS/HR Hydrocortisone Sodium Succinate 100 mg Q8H IV 07/09/24 17:44 07/11/24 07:15 100 MG Albumin Human 100 ml @ 100 mls/hr PRN PRN IV 07/09/24 18:30 07/09/24 20:25 100 MLS/HR Propofol 100 ml @ 2.79 mls/hr Q24H IV 07/09/24 20:00 07/11/24 14:57 16.74 MLS/HR Dopamine HCl/ Dextrose 250 ml @ 17.981 mls/ hr [id number] IV 07/10/24 06:30 Dextrose 50 ml PRN PRN IV 07/10/24 17:45 07/11/24 09:44 50 ML Sodium Bicarbonate 100 ml/Dextrose 1,100 ml @ 100 mls/hr Q11H IV 07/11/24 12:00 07/11/24 12:00 100 MLS/HR objective Gen: Intubated lungs: Coarse breath sounds cvs: no rub abd: soft, bowel sounds diminished ext: + edema, induration/erythema in right lower extremity laboratory and microbiology Laboratory Tests 07/11/24 09:04 07/11/24 03:26 Test 07/11/24 03:26 Range/Units Serum Glucose 108 H 74-106 mg/dL Assessment/Plan IMP: 1) ESRD on HD 2) hyperkalemia 3) uremic acidosis / lactic acidosis 4) septic shock with gram-negative anabella bacteremia 5) working diagnosis of possible necrotizing fasciitis of right lower extremity 6) anemia 7) hypoglycemia REC: - IV alkali/ dextrose - Dialysis 07/12 Plan discussed with: CHIRAG Rowland MD Jul 11, 2024 16:10
--- NOTE | 2024-07-11 17:43 | DVHPN2 ---
Progress Note - Dictate Date Seen: Jul 11, 2024 Has the PT tested + for MRSA If YES, has PT been informed?: No Medical Necessity Reason Pt with a Central, PICC or Fol: Yes The following are medically ne: Central Line, Schafer Catheter Reason for schafer catheter: Strict I&O Subjective Patient was seen and evaluated in follow up in the ICU. Patient is intubated and sedated on ventilator. 30% FiO2. Patient is receiving vasopressors for hemodynamic support. WBC 19.1, HGB 7.2, HCT 21.8, PT 35.6, INR 3.63, INR 38.4. Chest x-ray shows slightly improving pulmonary vascular congestion, left basilar airspace disease. vital signs Vital Sign Date Time Temp Pulse Resp B/P (MAP) Pulse Ox O2 Delivery O2 Flow Rate FiO2 07/11/24 16:31 99.0 71 24 113/24 (53) 100 210.2 129/61 (83) 07/11/24 16:28 30 07/11/24 15:59 Mechanical Ventilator+ 07/09/24 16:41 2 Total Intake and Output 07/10/24 07/10/24 07/11/24 15:00 23:00 07:00 Intake Total 1639.160 ml 961.173 ml 909.493 ml Output Total 0 ml 0 ml Balance 1639.160 ml 961.173 ml 909.493 ml medications Current Medications Medications Dose Ordered Sig/Rey Route Start Time Stop Time Status Last Admin Dose Admin Vancomycin HCl 0 ml @ 0 mls/hr UD IV 07/08/24 17:00 Sodium Chloride 10 ml Q8HR IV 07/09/24 06:00 07/11/24 10:24 10 ML Vasopressin 20 units/Sodium Chloride 100 ml @ 9 mls/hr Q11H7M IV 07/09/24 13:15 07/11/24 08:29 9 MLS/HR Norepinephrine Bitartrate 32 mg/ Sodium Chloride 250 ml @ 0.938 mls/ hr Q24H IV 07/09/24 15:30 07/10/24 08:06 14.063 MLS/HR Phenylephrine HCl 80 mg/Sodium Chloride 250 ml @ 7.5 mls/hr Q24H IV 07/09/24 15:45 07/10/24 08:08 33.75 MLS/HR Diagnostic Test (Pha) 1 strip Q4HR 07/09/24 18:00 07/11/24 14:17 1 STRIP Meropenem 50 ml @ 17 mls/hr Q12HR IV 07/10/24 10:00 07/11/24 07:16 17 MLS/HR Epinephrine HCl 250 ml @ 7.5 mls/hr Q24H IV 07/09/24 17:00 07/10/24 05:30 7.5 MLS/HR Pantoprazole Sodium 40 mg DAILY IV 07/10/24 10:00 07/11/24 07:15 40 MG Fentanyl Citrate 250 ml @ 2.5 mls/hr Q24H IV 07/09/24 17:30 07/11/24 14:57 27.5 MLS/HR Hydrocortisone Sodium Succinate 100 mg Q8H IV 07/09/24 17:44 07/11/24 07:15 100 MG Albumin Human 100 ml @ 100 mls/hr PRN PRN IV 07/09/24 18:30 07/09/24 20:25 100 MLS/HR Propofol 100 ml @ 2.79 mls/hr Q24H IV 07/09/24 20:00 07/11/24 14:57 16.74 MLS/HR Dopamine HCl/ Dextrose 250 ml @ 17.981 mls/ hr [id number] IV 07/10/24 06:30 Dextrose 50 ml PRN PRN IV 07/10/24 17:45 07/11/24 09:44 50 ML Sodium Bicarbonate 100 ml/Dextrose 1,100 ml @ 100 mls/hr Q11H IV 07/11/24 12:00 07/11/24 12:00 100 MLS/HR objective GENERAL: Intubated on ventilator. Morbidly obese. LUNGS: Decreased breath sounds. CARDIOVASCULAR: Heart sounds are good. ABDOMEN: Soft. EXT: Significant edema to BLE, more significant on RLE. SKIN: Ecchymosis to right upper thigh. laboratory and microbiology Laboratory Tests 07/11/24 09:04 07/11/24 03:26 Test 07/11/24 03:26 Range/Units Serum Glucose 108 H 74-106 mg/dL Problem List Hypotension secondary to septic shock. Coronary artery disease status post CABG in 2021. History of hypertension. Hyperlipidemia. Hyperkalemia. Acute anemia. Thrombocytopenia. Transaminitis. End-stage renal disease on hemodialysis. Renal cell carcinoma status post left nephrectomy. COPD. Asthma. Morbid obesity. Dilated cardiomyopathy. Assessment/Plan Continued all current supportive medical care. Dopamine drip. GI prophylactics. IV antibiotics as ordered. Vasopressors for hemodynamic support. Additional plan as per the hospital course. Critical care time of 45 minutes provided to include time spent evaluation of patient at bedside, when appropriate patient/family education for diagnosis, treatment plan, review of pertinent medical information and discussion of care with specialty providers and PCP. Mechanical ventilator parameters, treatment and adjustments have personally been reviewed by me and treatment plan by airworthiness inspector has also been reviewed. Plan discussed with: Other FRIDA SIMMONS MD Jul 11, 2024 16:54
--- NOTE | 2024-07-11 21:50 | DVHPN2 ---
Progress Note - Dictate Date Seen: Jul 11, 2024 Has the PT tested + for MRSA If YES, has PT been informed?: No Medical Necessity Reason Pt with a Central, PICC or Fol: Yes The following are medically ne: Central Line Subjective Patient seen and examined at bedside. Sedated, intubated on mechanical ventilator. Overnight events reviewed vital signs Vital Sign Date Time Temp Pulse Resp B/P (MAP) Pulse Ox O2 Delivery O2 Flow Rate FiO2 07/11/24 21:31 98.6 71 24 112/15 (47) 95 209.5 132/61 (84) 07/11/24 20:04 30 07/11/24 20:00 Mechanical Ventilator+ 07/09/24 16:41 2 Total Intake and Output 07/10/24 07/10/24 07/11/24 15:00 23:00 07:00 Intake Total 1639.160 ml 961.173 ml 909.493 ml Output Total 0 ml 0 ml Balance 1639.160 ml 961.173 ml 909.493 ml medications Current Medications Medications Dose Ordered Sig/Rey Route Start Time Stop Time Status Last Admin Dose Admin Vancomycin HCl 0 ml @ 0 mls/hr UD IV 07/08/24 17:00 Sodium Chloride 10 ml Q8HR IV 07/09/24 06:00 07/11/24 10:24 10 ML Vasopressin 20 units/Sodium Chloride 100 ml @ 9 mls/hr Q11H7M IV 07/09/24 13:15 07/11/24 20:59 9 MLS/HR Norepinephrine Bitartrate 32 mg/ Sodium Chloride 250 ml @ 0.938 mls/ hr Q24H IV 07/09/24 15:30 07/10/24 08:06 14.063 MLS/HR Phenylephrine HCl 80 mg/Sodium Chloride 250 ml @ 7.5 mls/hr Q24H IV 07/09/24 15:45 07/10/24 08:08 33.75 MLS/HR Diagnostic Test (Pha) 1 strip Q4HR 07/09/24 18:00 07/11/24 17:03 1 STRIP Meropenem 50 ml @ 17 mls/hr Q12HR IV 07/10/24 10:00 07/11/24 07:16 17 MLS/HR Epinephrine HCl 250 ml @ 7.5 mls/hr Q24H IV 07/09/24 17:00 07/10/24 05:30 7.5 MLS/HR Pantoprazole Sodium 40 mg DAILY IV 07/10/24 10:00 07/11/24 07:15 40 MG Fentanyl Citrate 250 ml @ 2.5 mls/hr Q24H IV 07/09/24 17:30 07/11/24 14:57 27.5 MLS/HR Hydrocortisone Sodium Succinate 100 mg Q8H IV 07/09/24 17:44 07/11/24 17:03 100 MG Albumin Human 100 ml @ 100 mls/hr PRN PRN IV 07/09/24 18:30 07/09/24 20:25 100 MLS/HR Propofol 100 ml @ 2.79 mls/hr Q24H IV 07/09/24 20:00 07/11/24 20:58 16.74 MLS/HR Dopamine HCl/ Dextrose 250 ml @ 17.981 mls/ hr [id number] IV 07/10/24 06:30 Dextrose 50 ml PRN PRN IV 07/10/24 17:45 07/11/24 09:44 50 ML Sodium Bicarbonate 100 ml/Dextrose 1,100 ml @ 100 mls/hr Q11H IV 07/11/24 12:00 07/11/24 20:58 100 MLS/HR objective Gen.: Patient lying in bed in medical ICU. Sedated, intubated on mechanical ventilator. Head: Normocephalic, atraumatic. Eyes: PERRLA. Ears: Normal external anatomy. Throat: Endotracheal tube and orogastric tube in place. Neck: Supple, trachea midline. Chest: Transmitted breath sounds bilaterally. Decreased air entry bilaterally. No wheezing. Bibasilar crackles. Cardiovascular: Positive S1, positive S2. Regular rate and rhythm. Abdomen: Positive bowel sounds in all 4 quadrants. Soft, nontender, nondistended. : Whiting in place. Normal external genitalia. Rectal: Deferred. Skin: Warm, dry. Intact. Extremities: 2+ radial pulses bilaterally. No lower extremity edema. Neuro: Sedated. laboratory and microbiology Laboratory Tests 07/11/24 09:04 07/11/24 03:26 Test 07/11/24 03:26 Range/Units Serum Glucose 108 H 74-106 mg/dL Assessment/Plan Impression: Acute hypoxic respiratory failure On mechanical ventilator Pulmonary edema Necrotizing fasciitis Septic shock Morbid obesity Events: Remains on vent support On AC mode; RR 22 -->24, VT 500, PEEP 8, FiO2 40 -->30% Transfuse 1 unit PRBC Monitor hemoglobin Transfused 1 unit platelets Monitor platelet count Sedated on Propofol, Fentanyl ABG reviewed, compensated. On pressors for hemodynamic support Levophed 10 mcg/min, vasopressin 0.03 units/min Titrate to keep MAP above 65 mmHg/SBP above 90 mmHg. Improved pressor requirements IV fluids - D5W + 2 amps bicarb at 50 ml/hr. Continue antibiotics Continue IV steroids Surgery recs appreciated. HD per Nephrology Monitor renal function Monitor electrolytes. Supplement as necessary. Nephrology recommendations appreciated Labs and imaging reviewed. Rest of plan as noted below. Plan: s/p intubation on mechanical ventilator. CXR image and report reviewed. Left mid and lower lung zone opacification which may represent pneumonia with possible small left-sided pleural effusion. Devices in place. On AC mode; RR 24, VT 500, PEEP 8, FiO2 30% Titrate FIO2 to keep O2 saturation above 90%. VAP bundle. Daily ABG and CXR while intubated Sedate for ventilator synchrony Continue antibiotics. F/u cultures. Continue IV steroids On multiple pressors for hemodynamic support Titrate to keep MAP above 65 mmHg/SBP above 90 mmHg. Monitor renal function Monitor electrolytes. Supplement as necessary. Monitor ins and outs. Maintain euvolemia. GI prophylaxis. DVT prophylaxis. Prognosis: Poor given patient's multiple co-morbidities. Condition: Critical Rest of plan per hospitalist and other consultants. A total of 35 minutes of critical care time was spent reviewing the patient record, examining the patient, making a diagnostic and therapeutic plan, discussing this plan with the medical personnel, following up on diagnostic studies and following the patient for clinical stability excluding any and all procedures. At least 50% of this time was spent in direct, [id number] contact. Thank you Dr. Johnson, for allowing me to participate in this patient's care. Further recommendations will depend on the patient's clinical course. Please do not hesitate to contact me if you have any questions or concerns. This medical document was created using an electronic medical record system with [employer] system. Although these documentations are being carefully reviewed, there may still be some phonetic and typographical changes. The errors are purely typographical, due to imperfection on the software program, and do not reflect any compromise in the patient's medical care. Plan discussed with: Other (JACEK Amor) Critical Care Time(min): 35 EB DEJESUS MD Jul 11, 2024 21:50
[2024-07-12] VITALS (111 sets, daily range): BP systolic 87–158; BP diastolic 14–82; PULSE 59–92; RESP 13–24; TEMP 97–99.5; O2SAT 95–100
[2024-07-12 04:45] LABS: Anion Gap 16 (5-15); BUN/Creatinine Ratio 9.2 (10.0-20.0); Carbon Dioxide 28 mmol/L (20-31); Magnesium 2.1 mg/dL (1.6-2.6); Potassium 3.9 mmol/L (3.5-5.1); Sodium 139 mmol/L (136-145)
[2024-07-12 04:54] LABS: Hematocrit 24.5 % (41.0-53.0); Hemoglobin 8.4 g/dL (13.5-17.5); Mean Corpuscular Hemoglobin 35.7 pg (28.0-32.0); Mean Corpuscular Hgb Conc. 34.1 g/dL (32.0-36.0); Mean Corpuscular Volume 104.8 fL (80.0-100.0); Platelet Count (auto) 33 10^3/uL (140-450); Red Blood Cells 2.34 10^6/uL (4.5-5.90); Red Cell Distribution Width 16.9 % (11.8-14.3); White Blood Cell 28.4 10^3/uL (4.4-10.8)
[2024-07-12 04:55] LABS: Albumin 3.1 g/dL (3.2-4.8); Alkaline Phosphatase 157 U/L (46-116); Bilirubin, Total 4.4 mg/dL (0.2-1.0); Blood Urea Nitrogen 42 mg/dL (9-23); Calcium 7.3 mg/dL (8.7-10.4); Chloride 95 mmol/L (98-107); Glucose 199 mg/dL (74-106)
[2024-07-12 05:00] LABS: INR 2.89 (0.9-1.15); Partial Thromboplastin Time 34.2 SEC (24.5-34.5); Prothrombin Time 28.3 sec (9.3-11.8)
[2024-07-12 05:01] LABS: Basophils % (manual) 0 (0.0-2.0); Blast Cells 0; Eosinophils % (manual) 0 (0-7); Metamyelocytes % 0; Myelocytes % 0; Promyelocytes % 0; Reactive Lymphocytes 0
[2024-07-12 05:03] LABS: Alanine Aminotransferase 2955 U/L (7-40); Aspartate Aminotransferase 2723 U/L (13-40)
--- NOTE | 2024-07-12 05:23 | DVH ---
CHEST RADIOGRAPH Indication: vent Technique: Single frontal view of the chest was obtained COMPARISON: XY CHEST PORTABLE on DOS: 07/11/24, XY CHEST XRAY 1 VIEW on DOS: 07/10/24, XY CHEST PORTABL E on DOS: 07/09/24, XY CHEST PORTABLE on DOS: 07/09/24, XY CHEST PORTABLE on DOS: 07/08/24, XY CHEST XRAY 1 VIEW on DOS: 07/10/24 FINDINGS: Lines and Tubes: Median sternotomy. Endotracheal tube and enteric catheter in satisfactory position. Lungs: Congestion Pleura: No effusion. No pneumothorax. Cardiomediastinal contours: Cardiomegaly Bones: Unremarkable IMPRESSION: Lines and tubes in satisfactory position. No significant interval change.
[2024-07-12] MEDS: SODIUM CHL 0.9% 1000 ML BAG XX ONE (07:00)
[2024-07-12 07:17] LABS: Band Neutrophils % (manual) 19; Lymphocytes % (manual) 3 (10.0-50.0); Monocytes % (manual) 1 (0-12)
[2024-07-12 07:18] LABS: Macrocytosis Slight
[2024-07-12 07:20] LABS: Platelet Estimate Markedly Decreased
[2024-07-12] MEDS ORDERED: DEXTROSE 10% IV SCH (08:30)
[2024-07-12] MEDS ORDERED: SODIUM BICARB IV SCH (08:30)
[2024-07-12] MEDS ORDERED: DEXTROSE 10% 1,000 ML IV SCH (08:45)
[2024-07-12] MEDS ORDERED: ALBUMIN 25% 50 ML IV PRN (08:45)
--- NOTE | 2024-07-12 08:54 | DVHPN2 ---
DG AQUINO MD 07/12/24 0854: Subjective Intubated and sedated Undergoing HD now Changes from previous H/P or p: Changes Eyes: No Pain, No Vision change, No Conjunctivae inflammation, No Eyelid inflammation, No Other, No Redness ENT: No Ear pain, No Ear discharge, No Nose pain, No Nose discharge, No Nose congestion, No Mouth pain, No Mouth swelling, No Throat pain, No Throat swelling, No Other Cardiovascular: Chest Pain Respiratory: Cough Gastrointestinal: No Nausea, No Vomiting, No Abdominal Pain, No Diarrhea, No Constipation, No Melena, No Hematochezia, No Other Genitourinary: No Dysuria, No Frequency, No Incontinence, No Hematuria, No Retention, No Other Musculoskeletal: other, leg pain Skin: Other Objective Vitals Vital Signs Date Time Temp Pulse Resp B/P (MAP) Pulse Ox O2 Delivery O2 Flow Rate FiO2 07/12/24 08:36 62 24 131/63 (85) 100 30 07/12/24 06:01 98.2 208.8 07/12/24 06:00 Mechanical Ventilator+ Intake/Output Intake and Output 07/12/24 07:00 Intake Total 3788.691 ml Balance 3788.691 ml IV Total 3788.691 ml General Appearance: Other (intubated and sedated) Lungs: Other (Rhonchi and crackles) Cardiovascular: Regular rate, Normal S1, Normal S2 Abdomen: Normal bowel sounds, Soft, No tenderness Extremities: Other (R thigh severe edema and tenderness and erythema with tight skin) Medications Current Medications Medications Dose Ordered Sig/Rey Route Start Time Stop Time Status Last Admin Dose Admin Vancomycin HCl 0 ml @ 0 mls/hr UD IV 07/08/24 17:00 Sodium Chloride 10 ml Q8HR IV 07/09/24 06:00 07/12/24 05:42 10 ML Vasopressin 20 units/Sodium Chloride 100 ml @ 9 mls/hr Q11H7M IV 07/09/24 13:15 07/12/24 08:11 9 MLS/HR Norepinephrine Bitartrate 32 mg/ Sodium Chloride 250 ml @ 0.938 mls/ hr Q24H IV 07/09/24 15:30 07/12/24 07:58 4.688 MLS/HR Phenylephrine HCl 80 mg/Sodium Chloride 250 ml @ 7.5 mls/hr Q24H IV 07/09/24 15:45 07/10/24 08:08 33.75 MLS/HR Diagnostic Test (Pha) 1 strip Q4HR 07/09/24 18:00 07/12/24 05:43 1 STRIP Meropenem 50 ml @ 17 mls/hr Q12HR IV 07/10/24 10:00 07/11/24 21:50 17 MLS/HR Epinephrine HCl 250 ml @ 7.5 mls/hr Q24H IV 07/09/24 17:00 07/10/24 05:30 7.5 MLS/HR Pantoprazole Sodium 40 mg DAILY IV 07/10/24 10:00 07/11/24 07:15 40 MG Fentanyl Citrate 250 ml @ 2.5 mls/hr Q24H IV 07/09/24 17:30 07/12/24 08:14 27.5 MLS/HR Hydrocortisone Sodium Succinate 100 mg Q8H IV 07/09/24 17:44 07/12/24 01:44 100 MG Albumin Human 100 ml @ 100 mls/hr PRN PRN IV 07/09/24 18:30 07/12/24 07:55 100 MLS/HR Propofol 100 ml @ 2.79 mls/hr Q24H IV 07/09/24 20:00 07/12/24 08:11 16.74 MLS/HR Dopamine HCl/ Dextrose 250 ml @ 17.981 mls/ hr [id number] IV 07/10/24 06:30 Dextrose 50 ml PRN PRN IV 07/10/24 17:45 07/11/24 09:44 50 ML Sodium Bicarbonate 100 ml/Dextrose 1,100 ml @ 30 mls/hr Q24H IV 07/12/24 08:30 Dextrose 1,000 ml @ 30 mls/hr Q24H IV 07/12/24 08:45 Laboratory Results Laboratory Tests 07/12/24 03:22 Chemistry Test 07/12/24 03:22 Albumin 3.1 g/dL (3.2-4.8) L Calcium Level 7.3 mg/dL (8.7-10.4) L Magnesium Level 2.1 mg/dL (1.6-2.6) Total Protein 5.0 g/dL (5.7-8.2) L Coagulation Test 07/12/24 03:22 Prothrombin Time 28.3 sec (9.3-11.8) H Prothrombin Time INR 2.89 (0.9-1.15) H Activated Partial Thromboplast Time 34.2 SEC (24.5-34.5) LFT Test 07/12/24 03:22 Alanine Aminotransferase (ALT) 2955 U/L (7-40) H Alkaline Phosphatase 157 U/L (46-116) H Aspartate Amino Transferase (AST) 2723 U/L (13-40) H Total Bilirubin 4.4 mg/dL (0.2-1.0) H Microbiology Microbiology Date/Time Source Procedure Growth Status 07/09/24 19:55 Trachea Gram Stain - Final Resulted 07/09/24 19:55 Trachea Respiratory Culture - Preliminary Resulted 07/08/24 18:00 Blood Blood Culture - Final Escherichia coli - ESBL Complete Assessment/Plan Assessment/Plan Severe sepsis with septic shock most likely due to right thigh infection possibly necrotizing fasciitis and also possible underlying pneumonia Bacteremia with Gram-negative rods Rule out RLE necrotizing fasciitis Metabolic acidosis ESRD on HD h/o kidney CA s/p nephrectomy Hyperkalemia Thrombocytopenia Possible LLL pneumonia ?Left pleural effusion CAD Mixed hyperlipidemia DM2 Obesity PLAN: 07/09/2024: Broad spectrum antibiotics Surgical consult, Dr. Ghotra Nephrology consult Hyperkalemia protocol Emergency hyperkalemia protocol, D50, insulin, calcium gluconate, Sodium bicarbonate IV fluids D5W to prevent hypoglycemia Vasopressors as needed No anticoagulation due to the thrombocytopenia NPO for possible surgical intervention after hemodialysis tonight Discussed with Dr. Mauro, he is trying to get hemodialysis done as soon as possible Discussed with Dr. Ghotra, he is planning on possible surgical intervention on his right leg tonight after dialysis Consult infectious disease Blood culture shows Gram-negative rods Get urine culture Full code Prognosis is guarded Discussed with the family at the bedside 07/10/24: Metabolic acidosis: NaBicarb x 2 amps, Hypoglycemia: Change fluids to D10 with 2 amps NaBicarb/liter at 50 ml/hr ESRD: HD per nephrology Sepsis with septic shock: IV antibiotics Meropenem and Vancomycin Right thigh cellulitis / possible underlying necrotizing fasciitis: IV antibiotics, Surgical consult Hyperkalemia: LoKelma given, repeat labs, HD Bacteremia w G- Rods: Meropenem Thrombocytopenia due to sepsis: 1 unit platelets given, repeat labs Sedation as needed, pulmonary consult ID consult Discussed with daughter at the bedside Full code 07/11/24: Hypoglycemia: Increase D10 to 100 ml/hr Sepsis w septic shock: Pressors R leg infection w bacteremia E. Coli ESBL: Meropenem Vanco Thrombocytopenia due to sepsis: Transfuse one units platelets Anemia: Transfuse one RBCs Coagulopathy: Vit K IV ESRD: Nephrology ID consult on Acute hypoxic respiratory failure: Mechanical ventilation Discussed with at the bedside Prognosis: Guarded 07/12/24: Change IVF to D10, remove bicarb HD IV antibiotics: Meropenem and Vanco Surgical consult on Vit K IV 10 mg Plan discussed with: Other My Orders Orders - DG AQUINO MD Procedure Category Date Status Time Chest Portable XY 07/12/24 Resulted 06:00 Abg W/ Co-Ox RT 07/12/24 Logged 06:00 Dextrose 10% W/Sodium PHA 07/12/24 In Process Bicarb 50meq/50ml 08:30 Dextrose 10% PHA 07/12/24 In Process 08:45 Date of Service: Jul 12, 2024 Billing Provider: DG AQUINO MD Common Visit Codes: NOT BILLABLE MICHELLE MAURER MD 07/13/242026: DG AQUINO MD Jul 12, 2024 08:54 MICHELLE MAURER MD Jul 13, 2024 20:27
[2024-07-12 09:09] LABS: Hepatitis A Ab IgM Negative; Hepatitis B Core IgM Negative (Negative); Hepatitis B Surface Antigen Negative (Negative); Hepatitis C Antibody Negative (Negative)
--- NOTE | 2024-07-12 09:44 | DVHPN2 ---
Progress Note Date Seen: Jul 12, 2024 Has the PT tested + for MRSA If YES, has PT been informed?: No Medical Necessity Reason Pt with a Central, PICC or Fol: Yes The following are medically ne: Central Line Subjective Patient reports: Other Review of Systems: RESPIRATORY:Abnormal Objective vital signs Vital Sign Date Time Temp Pulse Resp B/P (MAP) Pulse Ox O2 Delivery O2 Flow Rate FiO2 07/12/24 08:36 62 24 131/63 (85) 100 30 07/12/24 06:01 98.2 208.8 07/12/24 06:00 Mechanical Ventilator+ Total Intake and Output 07/11/24 07/11/24 07/12/24 15:00 23:00 07:00 Intake Total 1368.496 ml 1265.595 ml 1154.6 ml Balance 1368.496 ml 1265.595 ml 1154.6 ml medications Current Medications Medications Dose Ordered Sig/Rey Route Start Time Stop Time Status Last Admin Dose Admin Vancomycin HCl 0 ml @ 0 mls/hr UD IV 07/08/24 17:00 Sodium Chloride 10 ml Q8HR IV 07/09/24 06:00 07/12/24 05:42 10 ML Vasopressin 20 units/Sodium Chloride 100 ml @ 9 mls/hr Q11H7M IV 07/09/24 13:15 07/12/24 08:11 9 MLS/HR Norepinephrine Bitartrate 32 mg/ Sodium Chloride 250 ml @ 0.938 mls/ hr Q24H IV 07/09/24 15:30 07/12/24 07:58 4.688 MLS/HR Phenylephrine HCl 80 mg/Sodium Chloride 250 ml @ 7.5 mls/hr Q24H IV 07/09/24 15:45 07/10/24 08:08 33.75 MLS/HR Diagnostic Test (Pha) 1 strip Q4HR 07/09/24 18:00 07/12/24 05:43 1 STRIP Meropenem 50 ml @ 17 mls/hr Q12HR IV 07/10/24 10:00 07/11/24 21:50 17 MLS/HR Epinephrine HCl 250 ml @ 7.5 mls/hr Q24H IV 07/09/24 17:00 07/10/24 05:30 7.5 MLS/HR Pantoprazole Sodium 40 mg DAILY IV 07/10/24 10:00 07/11/24 07:15 40 MG Fentanyl Citrate 250 ml @ 2.5 mls/hr Q24H IV 07/09/24 17:30 07/12/24 08:14 27.5 MLS/HR Hydrocortisone Sodium Succinate 100 mg Q8H IV 07/09/24 17:44 07/12/24 01:44 100 MG Propofol 100 ml @ 2.79 mls/hr Q24H IV 07/09/24 20:00 07/12/24 08:11 16.74 MLS/HR Dopamine HCl/ Dextrose 250 ml @ 17.981 mls/ hr [id number] IV 07/10/24 06:30 Dextrose 50 ml PRN PRN IV 07/10/24 17:45 07/11/24 09:44 50 ML Albumin Human 50 ml @ 100 mls/hr PRN PRN IV 07/12/24 08:45 Dextrose 1,000 ml @ 30 mls/hr Q24H IV 07/12/24 09:00 Examination: GENERAL:Abnormal, LUNGS:Abnormal, SKIN:Abnormal laboratory and microbiology Laboratory Tests 07/12/24 03:22 Test 07/12/24 03:22 Range/Units Serum Glucose 199 H 74-106 mg/dL Microbiology Date/Time Source Procedure Growth Status 07/09/24 19:55 Trachea Gram Stain - Final Resulted 07/09/24 19:55 Trachea Respiratory Culture - Preliminary Resulted 07/08/24 18:00 Blood Blood Culture - Final Escherichia coli - ESBL Complete Problem List/Assessment/Plan Problem List/Assessment/Plan ESRD on HD hyperkalemia uremic acidosis / lactic acidosis septic shock with gram-negative anabella bacteremia lower extremity wound anemia hypoglycemia HD treatment fluid removal as tolerated, aggressive UF today Ecoli bacteremia ABX keep MAP > 65 Plan discussed with: Other My Orders My Orders Orders - LULU RICHARD MD Procedure Category Date Status Time Hemodialysis Orders ORDERS 07/12/24 Transmitted 06:54 Epoetin Justus-Epbx PHA 07/12/24 In Process (Retacrit) 21:00 LULU RICHARD MD Jul 12, 2024 09:44
[2024-07-12 10:36] LABS: Base Excess 6.3 mmol/L (-2.0-3.0)
[2024-07-12] MEDS: D5W 5% 1,000 ML IV SCH (11:21)
[2024-07-12] MEDS: phytonadione 10 MG in SODIUM CHL 0.9% 50 ML IV ONE (11:37)
[2024-07-12 12:50] LABS: Base Excess 4.3 mmol/L (-2.0-3.0)
[2024-07-12] MEDS: EPOETIN ALFA-EPBX 10,000 UNIT/1ML VIAL SC ONE (21:08)
--- NOTE | 2024-07-12 23:35 | DVHPN2 ---
Progress Note - Dictate Date Seen: Jul 12, 2024 Has the PT tested + for MRSA If YES, has PT been informed?: No Medical Necessity Reason Pt with a Central, PICC or Fol: Yes The following are medically ne: Central Line Subjective Patient was seen and evaluated in follow up in the ICU. Patient is intubated and sedated on ventilator. 30% FiO2. Patient is receiving vasopressors for hemodynamic support. Patient receiving HD. WBC increased to 28.4. HGB 8.4, HCT 24.5, PT 28.3, INR 2.89, BUN 42, Stitch Bonder Machine Operator Helper 4.56, CA 7.3, AST 2723, ALT 2955. vital signs Vital Sign Date Time Temp Pulse Resp B/P (MAP) Pulse Ox O2 Delivery O2 Flow Rate FiO2 07/12/24 22:22 70 19 104/54 (71) 100 60 07/12/24 22:00 99.5 211.1 07/12/24 22:00 Mechanical Ventilator+ Total Intake and Output 07/11/24 07/11/24 07/12/24 15:00 23:00 07:00 Intake Total 1368.496 ml 1265.595 ml 1212.538 ml Balance 1368.496 ml 1265.595 ml 1212.538 ml medications Current Medications Medications Dose Ordered Sig/Rey Route Start Time Stop Time Status Last Admin Dose Admin Vancomycin HCl 0 ml @ 0 mls/hr UD IV 07/08/24 17:00 Sodium Chloride 10 ml Q8HR IV 07/09/24 06:00 07/12/24 14:00 10 ML Vasopressin 20 units/Sodium Chloride 100 ml @ 9 mls/hr Q11H7M IV 07/09/24 13:15 07/12/24 19:20 9 MLS/HR Norepinephrine Bitartrate 32 mg/ Sodium Chloride 250 ml @ 0.938 mls/ hr Q24H IV 07/09/24 15:30 07/12/24 07:58 4.688 MLS/HR Phenylephrine HCl 80 mg/Sodium Chloride 250 ml @ 7.5 mls/hr Q24H IV 07/09/24 15:45 07/10/24 08:08 33.75 MLS/HR Diagnostic Test (Pha) 1 strip Q4HR 07/09/24 18:00 07/12/24 18:06 1 STRIP Epinephrine HCl 250 ml @ 7.5 mls/hr Q24H IV 07/09/24 17:00 07/10/24 05:30 7.5 MLS/HR Pantoprazole Sodium 40 mg DAILY IV 07/10/24 10:00 07/12/24 10:14 40 MG Fentanyl Citrate 250 ml @ 2.5 mls/hr Q24H IV 07/09/24 17:30 07/12/24 18:13 30 MLS/HR Hydrocortisone Sodium Succinate 100 mg Q8H IV 07/09/24 17:44 07/12/24 18:10 100 MG Propofol 100 ml @ 2.79 mls/hr Q24H IV 07/09/24 20:00 07/12/24 21:08 19.53 MLS/HR Dopamine HCl/ Dextrose 250 ml @ 17.981 mls/ hr [id number] IV 07/10/24 06:30 Dextrose 50 ml PRN PRN IV 07/10/24 17:45 07/11/24 09:44 50 ML Albumin Human 50 ml @ 100 mls/hr PRN PRN IV 07/12/24 08:45 Dextrose 1,000 ml @ 30 mls/hr Q24H IV 07/12/24 09:00 07/12/24 11:21 30 MLS/HR Epoetin Justus-epbx 10,000 unit MWF SC 07/14/24 21:00 Meropenem 50 ml @ 17 mls/hr Q24H IV 07/13/24 22:00 objective GENERAL: Intubated on ventilator. Morbidly obese. LUNGS: Decreased breath sounds. CARDIOVASCULAR: Heart sounds are good. ABDOMEN: Soft. EXT: Significant edema to BLE, more significant on RLE. SKIN: Ecchymosis to right upper thigh. laboratory and microbiology Laboratory Tests 07/12/24 03:22 Test 07/12/24 03:22 Range/Units Serum Glucose 199 H 74-106 mg/dL Problem List Hypotension secondary to septic shock. Coronary artery disease status post CABG in 2021. History of hypertension. Hyperlipidemia. Hyperkalemia. Acute anemia. Thrombocytopenia. Transaminitis. End-stage renal disease on hemodialysis. Renal cell carcinoma status post left nephrectomy. COPD. Asthma. Morbid obesity. Dilated cardiomyopathy. Assessment/Plan Continued all current supportive medical care. Dopamine drip. GI prophylactics. IV antibiotics as ordered. Vasopressors for hemodynamic support. Additional plan as per the hospital course. Critical care time of 45 minutes provided to include time spent evaluation of patient at bedside, when appropriate patient/family education for diagnosis, treatment plan, review of pertinent medical information and discussion of care with specialty providers and PCP. Mechanical ventilator parameters, treatment and adjustments have personally been reviewed by me and treatment plan by compensation expert has also been reviewed. Dietary Evaluation Review Comments: 1) If GI is accessible consider Nepro 1.8 @ 20 ml/hr with current rate of propofol on board 2) If pt remains NPO >7days of NPO status, provide TPN to meet at least 75% of estimated needs 3) Advance pt diet when medically feasible to a Renal Standard diet modified per BUSINESS INTELLIGENCE DIRECTOR recommendations Expected Outcomes/Goals: 1) Pt to receive nutrition support within 7 days of NPO status 2) Pt diet to advance 3) F/U in 2-3 days Plan discussed with: Other FRIDA SIMMONS MD Jul 12, 2024 23:35
--- NOTE | 2024-07-12 23:46 | DVHPN2 ---
Progress Note - Dictate Date Seen: Jul 12, 2024 Has the PT tested + for MRSA If YES, has PT been informed?: No Medical Necessity Reason Pt with a Central, PICC or Fol: Yes The following are medically ne: Central Line Subjective Patient seen and examined at bedside. Sedated, intubated on mechanical ventilator. Overnight events reviewed vital signs Vital Sign Date Time Temp Pulse Resp B/P (MAP) Pulse Ox O2 Delivery O2 Flow Rate FiO2 07/12/24 22:22 70 19 104/54 (71) 100 60 07/12/24 22:00 99.5 211.1 07/12/24 22:00 Mechanical Ventilator+ Total Intake and Output 07/11/24 07/11/24 07/12/24 15:00 23:00 07:00 Intake Total 1368.496 ml 1265.595 ml 1212.538 ml Balance 1368.496 ml 1265.595 ml 1212.538 ml medications Current Medications Medications Dose Ordered Sig/Rey Route Start Time Stop Time Status Last Admin Dose Admin Vancomycin HCl 0 ml @ 0 mls/hr UD IV 07/08/24 17:00 Sodium Chloride 10 ml Q8HR IV 07/09/24 06:00 07/12/24 14:00 10 ML Vasopressin 20 units/Sodium Chloride 100 ml @ 9 mls/hr Q11H7M IV 07/09/24 13:15 07/12/24 19:20 9 MLS/HR Norepinephrine Bitartrate 32 mg/ Sodium Chloride 250 ml @ 0.938 mls/ hr Q24H IV 07/09/24 15:30 07/12/24 07:58 4.688 MLS/HR Phenylephrine HCl 80 mg/Sodium Chloride 250 ml @ 7.5 mls/hr Q24H IV 07/09/24 15:45 07/10/24 08:08 33.75 MLS/HR Diagnostic Test (Pha) 1 strip Q4HR 07/09/24 18:00 07/12/24 18:06 1 STRIP Epinephrine HCl 250 ml @ 7.5 mls/hr Q24H IV 07/09/24 17:00 07/10/24 05:30 7.5 MLS/HR Pantoprazole Sodium 40 mg DAILY IV 07/10/24 10:00 07/12/24 10:14 40 MG Fentanyl Citrate 250 ml @ 2.5 mls/hr Q24H IV 07/09/24 17:30 07/12/24 18:13 30 MLS/HR Hydrocortisone Sodium Succinate 100 mg Q8H IV 07/09/24 17:44 07/12/24 18:10 100 MG Propofol 100 ml @ 2.79 mls/hr Q24H IV 07/09/24 20:00 07/12/24 21:08 19.53 MLS/HR Dopamine HCl/ Dextrose 250 ml @ 17.981 mls/ hr [id number] IV 07/10/24 06:30 Dextrose 50 ml PRN PRN IV 07/10/24 17:45 07/11/24 09:44 50 ML Albumin Human 50 ml @ 100 mls/hr PRN PRN IV 07/12/24 08:45 Dextrose 1,000 ml @ 30 mls/hr Q24H IV 07/12/24 09:00 07/12/24 11:21 30 MLS/HR Epoetin Justus-epbx 10,000 unit MWF SC 07/14/24 21:00 Meropenem 50 ml @ 17 mls/hr Q24H IV 07/13/24 22:00 objective Gen.: Patient lying in bed in medical ICU. Sedated, intubated on mechanical ventilator. Head: Normocephalic, atraumatic. Eyes: PERRLA. Ears: Normal external anatomy. Throat: Endotracheal tube and orogastric tube in place. Neck: Supple, trachea midline. Chest: Transmitted breath sounds bilaterally. Decreased air entry bilaterally. No wheezing. Bibasilar crackles. Cardiovascular: Positive S1, positive S2. Regular rate and rhythm. Abdomen: Positive bowel sounds in all 4 quadrants. Soft, nontender, nondistended. : Whiting in place. Normal external genitalia. Rectal: Deferred. Skin: Warm, dry. Intact. Extremities: 2+ radial pulses bilaterally. No lower extremity edema. Neuro: Sedated. laboratory and microbiology Laboratory Tests 07/12/24 03:22 Test 07/12/24 03:22 Range/Units Serum Glucose 199 H 74-106 mg/dL Assessment/Plan Impression: Acute hypoxic respiratory failure On mechanical ventilator Pulmonary edema Necrotizing fasciitis Septic shock Morbid obesity Events: Remains on vent support On AC mode; RR 24 -->18, VT 500 -->450, PEEP 8, FiO2 30 -->80% Patient required Ambu bagging Pt is not tolerating turns. S/p 1 unit PRBC yesterday Hemoglobin 8.4 g/dL - continue to monitor Transfused 1 unit platelets yesterday Monitor platelet count - 33 K Sedated on Propofol, Fentanyl ABG reviewed, notable for alkalemia On pressors for hemodynamic support Levophed 10 mcg/min, vasopressin 0.03 units/min Titrate to keep MAP above 65 mmHg/SBP above 90 mmHg. IV fluids - D5W + 2 amps bicarb at 50 ml/hr. Leukocytosis - WBC of 28.4 K Continue antibiotics Continue IV steroids Surgery recs appreciated. HD per Nephrology - HD today removed 5 L; plan for HD in AM. Monitor renal function Monitor electrolytes. Supplement as necessary. Nephrology recommendations appreciated Labs and imaging reviewed. Rest of plan as noted below. Plan: s/p intubation on mechanical ventilator. CXR image and report reviewed. Left mid and lower lung zone opacification which may represent pneumonia with possible small left-sided pleural effusion. Devices in place. On AC mode; RR 18, VT 450, PEEP 8, FiO2 80% Titrate FIO2 to keep O2 saturation above 90%. VAP bundle. Daily ABG and CXR while intubated Sedate for ventilator synchrony Continue antibiotics. F/u cultures. Continue IV steroids On multiple pressors for hemodynamic support Titrate to keep MAP above 65 mmHg/SBP above 90 mmHg. Monitor renal function Monitor electrolytes. Supplement as necessary. Monitor ins and outs. Maintain euvolemia. GI prophylaxis. DVT prophylaxis. Prognosis: Poor given patient's multiple co-morbidities. Condition: Critical Rest of plan per hospitalist and other consultants. A total of 35 minutes of critical care time was spent reviewing the patient record, examining the patient, making a diagnostic and therapeutic plan, discussing this plan with the medical personnel, following up on diagnostic studies and following the patient for clinical stability excluding any and all procedures. At least 50% of this time was spent in direct, [id number] contact. Thank you Dr. Johnson, for allowing me to participate in this patient's care. Further recommendations will depend on the patient's clinical course. Please do not hesitate to contact me if you have any questions or concerns. This medical document was created using an electronic medical record system with [employer] system. Although these documentations are being carefully reviewed, there may still be some phonetic and typographical changes. The errors are purely typographical, due to imperfection on the software program, and do not reflect any compromise in the patient's medical care. Dietary Evaluation Review Comments: 1) If GI is accessible consider Nepro 1.8 @ 20 ml/hr with current rate of propofol on board 2) If pt remains NPO >7days of NPO status, provide TPN to meet at least 75% of estimated needs 3) Advance pt diet when medically feasible to a Renal Standard diet modified per VEHICLE SERVICE ATTENDANT recommendations Expected Outcomes/Goals: 1) Pt to receive nutrition support within 7 days of NPO status 2) Pt diet to advance 3) F/U in 2-3 days Plan discussed with: Other (JACEK Robles) Critical Care Time(min): 35 EB DEJESUS MD Jul 12, 2024 23:46
[2024-07-13] VITALS (105 sets, daily range): BP systolic 27–131; BP diastolic 11–69; PULSE 58–74; RESP 16–22; TEMP 87.1–99.7; O2SAT 96–100
[2024-07-13 04:11] LABS: Hemoglobin 8.4 g/dL (13.5-17.5)
[2024-07-13 04:13] LABS: Hematocrit 25.2 % (41.0-53.0); Mean Corpuscular Hemoglobin 35.4 pg (28.0-32.0); Mean Corpuscular Hgb Conc. 33.5 g/dL (32.0-36.0); Mean Corpuscular Volume 105.8 fL (80.0-100.0); Platelet Count (auto) 30 10^3/uL (140-450); Red Blood Cells 2.38 10^6/uL (4.5-5.90); Red Cell Distribution Width 16.5 % (11.8-14.3); White Blood Cell 25.3 10^3/uL (4.4-10.8)
[2024-07-13 04:26] LABS: Basophils % (manual) 0 (0.0-2.0); Eosinophils % (manual) 0 (0-7); Myelocytes % 0; Promyelocytes % 0; Reactive Lymphocytes 0
[2024-07-13 04:30] LABS: % Iron Saturation 73.1 % (20-55)
[2024-07-13 04:31] LABS: Albumin 3.6 g/dL (3.2-4.8); Anion Gap 14 (5-15); BUN/Creatinine Ratio 9.7 (10.0-20.0); Carbon Dioxide 27 mmol/L (20-31); Magnesium 2.4 mg/dL (1.6-2.6); Potassium 4.8 mmol/L (3.5-5.1); Sodium 138 mmol/L (136-145)
[2024-07-13 04:32] LABS: Total Protein 5.7 g/dL (5.7-8.2)
[2024-07-13 04:43] LABS: Alanine Aminotransferase 1953 U/L (7-40); Alkaline Phosphatase 136 U/L (46-116); Aspartate Aminotransferase 1090 U/L (13-40); Blood Urea Nitrogen 38 mg/dL (9-23); Chloride 97 mmol/L (98-107); Glucose 122 mg/dL (74-106)
[2024-07-13 04:44] LABS: Bilirubin, Total 6.4 mg/dL (0.2-1.0)
[2024-07-13 04:46] LABS: INR 2.4 (0.9-1.15); Prothrombin Time 23.3 sec (9.3-11.8)
[2024-07-13] MEDS: ALBUMIN 25% 50 ML IV ONE (06:57)
[2024-07-13 07:17] LABS: Band Neutrophils % (manual) 26; Blast Cells 1; Lymphocytes % (manual) 7 (10.0-50.0); Metamyelocytes % 2; Monocytes % (manual) 2 (0-12)
[2024-07-13 07:19] LABS: Macrocytosis Moderate; Platelet Estimate Markedly Decreased
[2024-07-13] MEDS ORDERED: ALBUMIN 25% 50 ML IV PRN (08:30)
[2024-07-13 10:42] LABS: Base Excess 3.3 mmol/L (-2.0-3.0)
--- NOTE | 2024-07-13 11:32 | DVH ---
EXAM: XY CHEST PORTABLE Indication: INTUBATED Technique: Single frontal view of the chest was obtained Comparison: XY CHEST PORTABLE on DOS: 07/12/24, XY CHEST PORTABLE on DOS: 07/11/24, XY CHEST XRAY 1 VIE W on DOS: 07/10/24, XY CHEST PORTABLE on DOS: 07/09/24, XY CHEST PORTABLE on DOS: 07/09/24 FINDINGS: Lines and Tubes: Endotracheal tube projects 2.2 cm above the quin. Enteric tube tip projects over t he expected region of the stomach. Lungs: Left basilar atelectasis. Pleura: Small left pleural effusion. No pneumothorax. Cardiomediastinal contours: Cardiomegaly. Bones: No acute osseous abnormality. IMPRESSION: Cardiomegaly, left basilar atelectasis and small left pleural effusion.
--- NOTE | 2024-07-13 12:13 | DVHPN2 ---
Subjective Patient intubated and sedated. Reviewed: Care Plan, H&P, Labs, Medications Changes from previous H/P or p: No Changes General: Per HPI Eyes: No Pain, No Vision change, No Conjunctivae inflammation, No Eyelid inflammation, No Other, No Redness ENT: No Ear pain, No Ear discharge, No Nose pain, No Nose discharge, No Nose congestion, No Mouth pain, No Mouth swelling, No Throat pain, No Throat swelling, No Other Cardiovascular: Chest Pain Respiratory: Cough Gastrointestinal: No Nausea, No Vomiting, No Abdominal Pain, No Diarrhea, No Constipation, No Melena, No Hematochezia, No Other Genitourinary: No Dysuria, No Frequency, No Incontinence, No Hematuria, No Retention, No Other Musculoskeletal: other, leg pain Skin: Other Objective Vitals Vital Signs Date Time Temp Pulse Resp B/P (MAP) Pulse Ox O2 Delivery O2 Flow Rate FiO2 07/13/24 11:34 126/65 07/13/24 09:54 60 16 99 30 07/13/24 08:00 Mechanical Ventilator+ 07/13/24 06:30 97.3 207.1 Intake/Output Intake and Output 07/13/24 07:00 Intake Total 2066.838 ml Balance 2066.838 ml IV Total 2066.838 ml General Appearance: Other (intubated and sedated) HEENT: PERRLA Lungs: Other (Rhonchi and crackles) Cardiovascular: Regular rate, Normal S1, Normal S2 Abdomen: Normal bowel sounds, Soft, No tenderness Musculoskeletal: Other (No motor movement) Neuro: Other (Unable to assess) Skin: Wounds (See nurse notes and pictures) Psych/Mental Status: Other (Unable to assess) Medications Current Medications Medications Dose Ordered Sig/Rey Route Start Time Stop Time Status Last Admin Dose Admin Vancomycin HCl 0 ml @ 0 mls/hr UD IV 07/08/24 17:00 Sodium Chloride 10 ml Q8HR IV 07/09/24 06:00 07/13/24 06:00 10 ML Vasopressin 20 units/Sodium Chloride 100 ml @ 9 mls/hr Q11H7M IV 07/09/24 13:15 07/13/24 08:12 9 MLS/HR Norepinephrine Bitartrate 32 mg/ Sodium Chloride 250 ml @ 0.938 mls/ hr Q24H IV 07/09/24 15:30 07/12/24 07:58 4.688 MLS/HR Phenylephrine HCl 80 mg/Sodium Chloride 250 ml @ 7.5 mls/hr Q24H IV 07/09/24 15:45 07/10/24 08:08 33.75 MLS/HR Diagnostic Test (Pha) 1 strip Q4HR 07/09/24 18:00 07/13/24 10:00 1 STRIP Epinephrine HCl 250 ml @ 7.5 mls/hr Q24H IV 07/09/24 17:00 07/10/24 05:30 7.5 MLS/HR Pantoprazole Sodium 40 mg DAILY IV 07/10/24 10:00 07/13/24 10:36 40 MG Fentanyl Citrate 250 ml @ 2.5 mls/hr Q24H IV 07/09/24 17:30 07/13/24 10:02 30 MLS/HR Hydrocortisone Sodium Succinate 100 mg Q8H IV 07/09/24 17:44 07/13/24 10:36 100 MG Propofol 100 ml @ 2.79 mls/hr Q24H IV 07/09/24 20:00 07/13/24 11:34 11.16 MLS/HR Dopamine HCl/ Dextrose 250 ml @ 17.981 mls/ hr [id number] IV 07/10/24 06:30 Dextrose 50 ml PRN PRN IV 07/10/24 17:45 07/11/24 09:44 50 ML Dextrose 1,000 ml @ 30 mls/hr Q24H IV 07/12/24 09:00 07/12/24 11:21 30 MLS/HR Epoetin Justus-epbx 10,000 unit MWF SC 07/14/24 21:00 Meropenem 50 ml @ 17 mls/hr Q24H IV 07/13/24 22:00 Albumin Human 50 ml @ 100 mls/hr PRN PRN IV 07/13/24 08:30 Cancel Albumin Human 50 ml @ 50 mls/hr PRN PRN IV 07/13/24 08:20 Laboratory Results Laboratory Tests 07/13/24 03:50 Chemistry Test 07/13/24 03:50 Albumin 3.6 g/dL (3.2-4.8) Calcium Level 8.0 mg/dL (8.7-10.4) L Magnesium Level 2.4 mg/dL (1.6-2.6) Total Protein 5.7 g/dL (5.7-8.2) Coagulation Test 07/13/24 03:50 Prothrombin Time 23.3 sec (9.3-11.8) H Prothrombin Time INR 2.40 (0.9-1.15) H Activated Partial Thromboplast Time 38.0 SEC (24.5-34.5) H LFT Test 07/13/24 03:50 Alanine Aminotransferase (ALT) 1953 U/L (7-40) H Alkaline Phosphatase 136 U/L (46-116) H Aspartate Amino Transferase (AST) 1090 U/L (13-40) H Total Bilirubin 6.4 mg/dL (0.2-1.0) H Blood Gas Results Test 07/12/24 12:40 07/13/24 10:34 Arterial Blood pH 7.480 (7.350-7.450) 7.453 (7.350-7.450) FiO2 % 30.0 30.0 Microbiology Microbiology Date/Time Source Procedure Growth Status 07/09/24 19:55 Trachea Gram Stain - Final Complete 07/09/24 19:55 Trachea Respiratory Culture - Final Complete 07/08/24 18:00 Blood Blood Culture - Final Escherichia coli - ESBL Complete Labs and/or images reviewed: Labs reviewed by me, Image(s) reviewed by me Assessment/Plan Assessment/Plan Impression: -septic shock -right leg cellulitis,? Necrotizing fasciitis -ESRD with hemodialysis, previous nephrectomy -coronary artery disease with previous CABG -dilated cardiomyopathy -acute on chronic systolic and diastolic heart failure with ejection fraction 25% -morbid obesity -hypocoagulable state -thrombocytopenia -hypoalbuminemia Plan: -blood positive for ESBL. Currently on ertapenem. We will recheck blood culture -surgical consultation -nephrology consultation patient received HD today, 5 L removed -pulmonary consultation: Continue current ventilator settings per their recommendations -wound care right lower extremity -continue current sedation -PUD, DVT prophylaxis, mechanical. -repeat labs, chest x-ray, ABG in a.m. Critical care time spent with patient discussing and formulating plan of care: 40 minutes. This does not include time spent performing procedures. This medical document was created using an electronic medical record system with [employer] system. Although this document has been carefully reviewed, there may still be some phonetic and typographical errors. These areas are purely typographical due to imperfections of the software programs, and do not reflect any compromise in the patient's medical care. Plan discussed with: Patient, Daughter, Other (RN) Date of Service: Jul 13, 2024 Billing Provider: MAYRA CALL NP Common Visit Codes: [id number] CARE 30-74 MIN MAYRA CALL NP Jul 13, 2024 12:13
--- NOTE | 2024-07-13 12:42 | DVHPN2 ---
Progress Note Date Seen: Jul 13, 2024 Has the PT tested + for MRSA If YES, has PT been informed?: No Medical Necessity Reason Pt with a Central, PICC or Fol: Yes The following are medically ne: Central Line Subjective Review of Systems: RESPIRATORY:Abnormal Objective vital signs Vital Sign Date Time Temp Pulse Resp B/P (MAP) Pulse Ox O2 Delivery O2 Flow Rate FiO2 07/13/24 12:08 67 16 116/59 (78) 97 30 07/13/24 08:00 Mechanical Ventilator+ 07/13/24 06:30 97.3 207.1 Total Intake and Output 07/12/24 07/12/24 07/13/24 15:00 23:00 07:00 Intake Total 674.454 ml 736.784 ml 655.6 ml Balance 674.454 ml 736.784 ml 655.6 ml medications Current Medications Medications Dose Ordered Sig/Rey Route Start Time Stop Time Status Last Admin Dose Admin Vancomycin HCl 0 ml @ 0 mls/hr UD IV 07/08/24 17:00 Sodium Chloride 10 ml Q8HR IV 07/09/24 06:00 07/13/24 06:00 10 ML Vasopressin 20 units/Sodium Chloride 100 ml @ 9 mls/hr Q11H7M IV 07/09/24 13:15 07/13/24 08:12 9 MLS/HR Norepinephrine Bitartrate 32 mg/ Sodium Chloride 250 ml @ 0.938 mls/ hr Q24H IV 07/09/24 15:30 07/12/24 07:58 4.688 MLS/HR Phenylephrine HCl 80 mg/Sodium Chloride 250 ml @ 7.5 mls/hr Q24H IV 07/09/24 15:45 07/10/24 08:08 33.75 MLS/HR Diagnostic Test (Pha) 1 strip Q4HR 07/09/24 18:00 07/13/24 10:00 1 STRIP Epinephrine HCl 250 ml @ 7.5 mls/hr Q24H IV 07/09/24 17:00 07/10/24 05:30 7.5 MLS/HR Pantoprazole Sodium 40 mg DAILY IV 07/10/24 10:00 07/13/24 10:36 40 MG Fentanyl Citrate 250 ml @ 2.5 mls/hr Q24H IV 07/09/24 17:30 07/13/24 10:02 30 MLS/HR Hydrocortisone Sodium Succinate 100 mg Q8H IV 07/09/24 17:44 07/13/24 10:36 100 MG Propofol 100 ml @ 2.79 mls/hr Q24H IV 07/09/24 20:00 07/13/24 11:34 11.16 MLS/HR Dopamine HCl/ Dextrose 250 ml @ 17.981 mls/ hr [id number] IV 07/10/24 06:30 Dextrose 50 ml PRN PRN IV 07/10/24 17:45 07/11/24 09:44 50 ML Dextrose 1,000 ml @ 30 mls/hr Q24H IV 07/12/24 09:00 07/12/24 11:21 30 MLS/HR Epoetin Justus-epbx 10,000 unit MWF SC 07/14/24 21:00 Meropenem 50 ml @ 17 mls/hr Q24H IV 07/13/24 22:00 Albumin Human 50 ml @ 100 mls/hr PRN PRN IV 07/13/24 08:30 Cancel Albumin Human 50 ml @ 50 mls/hr PRN PRN IV 07/13/24 08:20 Enteral Nutritional Formula 1,000 ml 30ML/HR GT 07/13/24 12:00 Examination: GENERAL:Abnormal, LUNGS:Abnormal, ABDOMEN:Abnormal, SKIN:Abnormal laboratory and microbiology Laboratory Tests 07/13/24 03:50 Test 07/13/24 03:50 Range/Units Serum Glucose 122 H 74-106 mg/dL Microbiology Date/Time Source Procedure Growth Status 07/09/24 19:55 Trachea Gram Stain - Final Complete 07/09/24 19:55 Trachea Respiratory Culture - Final Complete 07/08/24 18:00 Blood Blood Culture - Final Escherichia coli - ESBL Complete Problem List/Assessment/Plan Problem List/Assessment/Plan ESRD on HD hyperkalemia uremic acidosis / lactic acidosis septic shock with gram-negative anabella bacteremia lower extremity wound anemia hypoglycemia HD treatment today fluid removal as tolerated, aggressive UF today Ecoli bacteremia ABX keep MAP > 65 Plan discussed with: Other My Orders My Orders Orders - LULU RICHARD MD Procedure Category Date Status Time Hemodialysis Orders ORDERS 07/13/24 Transmitted 07:29 Dietary Evaluation Review Comments: 1) If GI is accessible consider Nepro 1.8 @ 20 ml/hr with current rate of propofol on board 2) If pt remains NPO >7days of NPO status, provide TPN to meet at least 75% of estimated needs 3) Advance pt diet when medically feasible to a Renal Standard diet modified per PROCUREMENT PROFESSIONAL recommendations Expected Outcomes/Goals: 1) Pt to receive nutrition support within 7 days of NPO status 2) Pt diet to advance 3) F/U in 2-3 days LULU RICHARD MD Jul 13, 2024 12:42
--- NOTE | 2024-07-13 14:28 | DVHPN2 ---
Consult Progress Note Date Seen: Jul 11, 2024 Subjective Patient reports: Other (slowly improving from pressure support and is down to 10 mics of levofed and vasopressin . FIO2 30% . is intubated and has a distended abdomen and is not producing much urine ) Objective vital signs Vital Sign Date Time Temp Pulse Resp B/P (MAP) Pulse Ox O2 Delivery O2 Flow Rate FiO2 07/13/24 14:03 73 16 102/53 (69) 97 30 07/13/24 10:00 Mechanical Ventilator+ 07/13/24 06:30 97.3 207.1 Total Intake and Output 07/12/24 07/12/24 07/13/24 15:00 23:00 07:00 Intake Total 674.454 ml 736.784 ml 744.153 ml Balance 674.454 ml 736.784 ml 744.153 ml medications Current Medications Medications Dose Ordered Sig/Rey Route Start Time Stop Time Status Last Admin Dose Admin Vancomycin HCl 0 ml @ 0 mls/hr UD IV 07/08/24 17:00 Sodium Chloride 10 ml Q8HR IV 07/09/24 06:00 07/13/24 06:00 10 ML Vasopressin 20 units/Sodium Chloride 100 ml @ 9 mls/hr Q11H7M IV 07/09/24 13:15 07/13/24 08:12 9 MLS/HR Norepinephrine Bitartrate 32 mg/ Sodium Chloride 250 ml @ 0.938 mls/ hr Q24H IV 07/09/24 15:30 07/12/24 07:58 4.688 MLS/HR Phenylephrine HCl 80 mg/Sodium Chloride 250 ml @ 7.5 mls/hr Q24H IV 07/09/24 15:45 07/10/24 08:08 33.75 MLS/HR Diagnostic Test (Pha) 1 strip Q4HR 07/09/24 18:00 07/13/24 10:00 1 STRIP Epinephrine HCl 250 ml @ 7.5 mls/hr Q24H IV 07/09/24 17:00 07/10/24 05:30 7.5 MLS/HR Pantoprazole Sodium 40 mg DAILY IV 07/10/24 10:00 07/13/24 10:36 40 MG Fentanyl Citrate 250 ml @ 2.5 mls/hr Q24H IV 07/09/24 17:30 07/13/24 10:02 30 MLS/HR Hydrocortisone Sodium Succinate 100 mg Q8H IV 07/09/24 17:44 07/13/24 10:36 100 MG Propofol 100 ml @ 2.79 mls/hr Q24H IV 07/09/24 20:00 07/13/24 11:34 11.16 MLS/HR Dextrose 50 ml PRN PRN IV 07/10/24 17:45 07/11/24 09:44 50 ML Dextrose 1,000 ml @ 30 mls/hr Q24H IV 07/12/24 09:00 07/12/24 11:21 30 MLS/HR Epoetin Justus-epbx 10,000 unit MWF SC 07/14/24 21:00 Meropenem 50 ml @ 17 mls/hr Q24H IV 07/13/24 22:00 Albumin Human 50 ml @ 100 mls/hr PRN PRN IV 07/13/24 08:30 Cancel Albumin Human 50 ml @ 50 mls/hr PRN PRN IV 07/13/24 08:20 Enteral Nutritional Formula 1,000 ml 30ML/HR GT 07/13/24 12:00 Physical Exam: - General: Intubated and sedated. - Neck: Supple. No masses. - HEENT: PERRL. Normal lids and conjunctiva. Moist mucous membranes. Oropharynx without lesions, exudates, or excessive erythema. Normal appearance of the external aspects of the nose and ears. - Heart: Regular rhythm, normal rate. No murmur. No lower extremity edema. - Lungs: Normal respiratory effort. Clear to auscultation bilaterally. No wheezes. No crackles. - Abdomen: Soft. Non-tender. Non-distended. No masses or abdominal hernia. - MSK: Right thigh tenderness. Normal strength and tone in all four limbs. - Skin: Warm and dry, no rashes. - Neuro: Unresponsive due to sedation. No facial droop or slurred speech. Extra- ocular movements intact. - Psych: Unable to assess due to sedation. laboratory and microbiology Laboratory Tests 07/13/24 03:50 Test 07/13/24 03:50 Range/Units Serum Glucose 122 H 74-106 mg/dL Problem List/Assessment/Plan Problems(with codes): (1) Pneumonia (2) Pancytopenia (3) Purpura (4) Renal failure (5) Sepsis (6) Generalized weakness (7) Pneumonia, unspecified organism (8) Sepsis, unspecified organism (9) Severe anemia (10) Chronic kidney disease, unspecified (11) Acute kidney failure, unspecified (12) End-stage renal disease on hemodialysis (13) Elevated liver enzymes (14) Necrotizing fasciitis of lower leg Problem List/Assessment/Plan ID Problem List: - Septic shock - Necrotizing fasciitis of right lower extremity - End-stage renal disease on hemodialysis - Kidney cancer status post nephrectomy - Coronary artery disease - Hyperlipidemia - Status post CABG - ESBL Bacteria - Pneumonia Assessment This is a 58 y.o. male with a past medical history of kidney cancer status post nephrectomy, end-stage renal disease on hemodialysis, coronary artery disease, hyperlipidemia, and status post CABG, who presents with chest pain, fever, and right thigh tenderness concerning for necrotizing fasciitis. On admission, the patient had a temperature of 104F, hypotension (BP 78/45 mmHg), lactic acid 3.8 mmol/L, elevated AST (3044 U/L) and ALT (560 U/L), WBC count 37,000/mm, hemoglobin 7.5 g/dL, and platelets 62,000/mm. Physical examination notable for right thigh tenderness and generalized weakness. Initial imaging included CT scan of the right thigh showing subcutaneous edema with no gas in soft tissues and small bilateral knee effusions. Chest CT revealed bronchiovascular crowding; underlying pulmonary vascular condition cannot be excluded. Blood cultures are preliminarily positive for gram-negative rods. Respiratory cultures show gram-positive issa. An anaerobic bottle was positive for gram- negative rods. Laboratory studies reveal persistent elevation of liver enzymes with AST 3009 U/L and ALT 1976 U/L. Lactic acid increased to 15 mmol/L, platelets decreased to 32,000/mm. Peripheral smear shows Elizabeth cells. Potassium is elevated at 6 mEq/L. The patient is intubated and sedated for acute hypoxic respiratory failure and altered mental status. 07/10: Undergoing ultra filtration and whitecount is elevated. Pressures are starting to come down since initiating meropenem and platelets are still low at 57 07/11: has an elevated whitecount of 19.1 , LFTs and renal function continue to worsen. blood cultures show ESBL E Coli . chest xray shows a left small bascular airspace disease . Fibrinogen is 433 appears to be adequate and patient is not having any additional signs of bleed . hemoglobin is stable at 8.4 and can hold off on additional transfusions outside of keeping hemoglobin above 7 and platelets above 50 Plan: - keep MAP goal to 65 for patient to maintain blood pressure support - likely etiology of ongoing septic shock is bacterial given gram negative anabella in blood , would not initiate any selective anaerobic coverage at this time - follow up on TTE HUS - Continue meropenem for broad-spectrum coverage targeting ESBL e.coli bacteremia - continue vancomycin empirically in setting of septic shock - would further evaluate patients liver failure , elevated platelets and elevated PT, INR - recommend abdominal ultrasound to evaluate for cirrhosis and patients elevated lactic acid - evaluate DIC and TTP and burst blood smear in setting of shock , recommend LDH haptoglobin , fibrinogen level - MAAHA is suspected after test results or if TTP is suspected recommend patient get plasma exchange - test for [id number] - Cultures: Monitor blood culture results and adjust antibiotics as needed. - Surgical Consultation: Agree with general surgeon that clinical picture favors hematoma vs cellulitis , no signs of necrotizing infection at this time - Infectious Workup: Follow up on hepatitis screening; recommend HIV screening due to elevated liver enzymes. - Supportive Care: Continue vasopressor support with norepinephrine (Levophed) and epinephrine as needed for septic shock. - Laboratory Monitoring: Recheck laboratory values including CBC, CMP, lactic acid, and coagulation profile. Monitor liver function tests. - Renal Management: Coordinate with nephrology for hemodialysis management. - Isolation Precautions: Standard precautions. Authorized and Performed by: sangeetha melendrez Total critical care time: Approximately 76 minutes Due to a high probability of clinically significant, life threatening deterioration, the patient required my highest level of preparedness to intervene emergently and I personally spent this critical care time directly and personally managing the patient. This critical care time included obtaining a history; examining the patient; pulse oximetry; ordering and review of studies; arranging urgent treatment with development of a management plan; evaluation of patient's response to treatment; frequent reassessment; and, discussions with other providers. This critical care time was performed to assess and manage the high probability of imminent, life-threatening deterioration that could result in multi-organ failure. It was exclusive of separately billable procedures and treating other patients and teaching time. Plan discussed with: Other Dietary Evaluation Review Comments: 1) If GI is accessible consider Nepro 1.8 @ 20 ml/hr with current rate of propofol on board 2) If pt remains NPO >7days of NPO status, provide TPN to meet at least 75% of estimated needs 3) Advance pt diet when medically feasible to a Renal Standard diet modified per [employer] GR[employer] 7 AND 8 TEACHER recommendations Expected Outcomes/Goals: 1) Pt to receive nutrition support within 7 days of NPO status 2) Pt diet to advance 3) F/U in 2-3 days SANGEETHA MELENDREZ MD Jul 13, 2024 14:28
[2024-07-13] MEDS: MEROPENEM 500MG IVPB 50 ML IV SCH (21:38)
--- NOTE | 2024-07-13 21:39 | DVHPN2 ---
Progress Note - Dictate Date Seen: Jul 13, 2024 Has the PT tested + for MRSA If YES, has PT been informed?: No Medical Necessity Reason Pt with a Central, PICC or Fol: Yes The following are medically ne: Central Line Subjective Patient seen and examined at bedside. Sedated, intubated on mechanical ventilator. Overnight events reviewed vital signs Vital Sign Date Time Temp Pulse Resp B/P (MAP) Pulse Ox O2 Delivery O2 Flow Rate FiO2 07/13/24 20:32 71 19 115/57 (76) 99 30 07/13/24 20:00 Mechanical Ventilator+ 07/13/24 18:15 99.0 210.2 Total Intake and Output 07/12/24 07/12/24 07/13/24 15:00 23:00 07:00 Intake Total 674.454 ml 736.784 ml 744.153 ml Balance 674.454 ml 736.784 ml 744.153 ml medications Current Medications Medications Dose Ordered Sig/Rey Route Start Time Stop Time Status Last Admin Dose Admin Vancomycin HCl 0 ml @ 0 mls/hr UD IV 07/08/24 17:00 Sodium Chloride 10 ml Q8HR IV 07/09/24 06:00 07/13/24 21:38 10 ML Vasopressin 20 units/Sodium Chloride 100 ml @ 9 mls/hr Q11H7M IV 07/09/24 13:15 07/13/24 20:27 9 MLS/HR Norepinephrine Bitartrate 32 mg/ Sodium Chloride 250 ml @ 0.938 mls/ hr Q24H IV 07/09/24 15:30 07/12/24 07:58 4.688 MLS/HR Phenylephrine HCl 80 mg/Sodium Chloride 250 ml @ 7.5 mls/hr Q24H IV 07/09/24 15:45 07/10/24 08:08 33.75 MLS/HR Diagnostic Test (Pha) 1 strip Q4HR 07/09/24 18:00 07/13/24 17:27 1 STRIP Epinephrine HCl 250 ml @ 7.5 mls/hr Q24H IV 07/09/24 17:00 07/10/24 05:30 7.5 MLS/HR Pantoprazole Sodium 40 mg DAILY IV 07/10/24 10:00 07/13/24 10:36 40 MG Fentanyl Citrate 250 ml @ 2.5 mls/hr Q24H IV 07/09/24 17:30 07/13/24 18:38 30 MLS/HR Hydrocortisone Sodium Succinate 100 mg Q8H IV 07/09/24 17:44 07/13/24 17:24 100 MG Propofol 100 ml @ 2.79 mls/hr Q24H IV 07/09/24 20:00 07/13/24 17:24 11.16 MLS/HR Dextrose 50 ml PRN PRN IV 07/10/24 17:45 07/11/24 09:44 50 ML Dextrose 1,000 ml @ 30 mls/hr Q24H IV 07/12/24 09:00 07/12/24 11:21 30 MLS/HR Epoetin Justus-epbx 10,000 unit MWF SC 07/14/24 21:00 Meropenem 50 ml @ 17 mls/hr Q24H IV 07/13/24 22:00 07/13/24 21:38 17 MLS/HR Albumin Human 50 ml @ 100 mls/hr PRN PRN IV 07/13/24 08:30 Cancel Albumin Human 50 ml @ 50 mls/hr PRN PRN IV 07/13/24 08:20 Enteral Nutritional Formula 1,000 ml 30ML/HR GT 07/13/24 12:00 objective Gen.: Patient lying in bed in medical ICU. Sedated, intubated on mechanical ventilator. Head: Normocephalic, atraumatic. Eyes: PERRLA. Ears: Normal external anatomy. Throat: Endotracheal tube and orogastric tube in place. Neck: Supple, trachea midline. Chest: Transmitted breath sounds bilaterally. Decreased air entry bilaterally. No wheezing. Bibasilar crackles. Cardiovascular: Positive S1, positive S2. Regular rate and rhythm. Abdomen: Positive bowel sounds in all 4 quadrants. Soft, nontender, nondistended. : Whiting in place. Normal external genitalia. Rectal: Deferred. Skin: Warm, dry. Intact. Extremities: 2+ radial pulses bilaterally. No lower extremity edema. Neuro: Sedated. laboratory and microbiology Laboratory Tests 07/13/24 03:50 Test 07/13/24 03:50 Range/Units Serum Glucose 122 H 74-106 mg/dL Assessment/Plan Impression: Acute hypoxic respiratory failure On mechanical ventilator Pulmonary edema Necrotizing fasciitis Septic shock Morbid obesity Events: Remains on vent support On AC mode; RR 18 -->16, VT 450, PEEP 8, FiO2 80 -->30% ABG reviewed, compensated CXR reviewed, demonstrates pulmonary edema. Pt is not tolerating turns. Hemoglobin stable - continue to monitor Platelet count trended down to 30 K Sedated on Propofol On pressors for hemodynamic support Levophed 6 mcg/min, vasopressin 0.03 units/min Titrate to keep MAP above 65 mmHg/SBP above 90 mmHg. IV fluids - D5W + 2 amps bicarb at 50 ml/hr. Continue antibiotics Continue IV steroids WBC trending down, 25.3 K Surgery recs appreciated. HD per Nephrology - plan for HD today. Monitor renal function Monitor electrolytes. Supplement as necessary. Nephrology recommendations appreciated Labs and imaging reviewed. Rest of plan as noted below. Plan: s/p intubation on mechanical ventilator. CXR image and report reviewed. Left mid and lower lung zone opacification which may represent pneumonia with possible small left-sided pleural effusion. Devices in place. On AC mode; RR 16, VT 450, PEEP 8, FiO2 30% Titrate FIO2 to keep O2 saturation above 90%. VAP bundle. Daily ABG and CXR while intubated Sedate for ventilator synchrony Continue antibiotics. F/u cultures. Continue IV steroids On multiple pressors for hemodynamic support Titrate to keep MAP above 65 mmHg/SBP above 90 mmHg. Monitor renal function Monitor electrolytes. Supplement as necessary. Monitor ins and outs. Maintain euvolemia. GI prophylaxis. DVT prophylaxis. Prognosis: Poor given patient's multiple co-morbidities. Condition: Critical Rest of plan per hospitalist and other consultants. A total of 35 minutes of critical care time was spent reviewing the patient record, examining the patient, making a diagnostic and therapeutic plan, discussing this plan with the medical personnel, following up on diagnostic studies and following the patient for clinical stability excluding any and all procedures. At least 50% of this time was spent in direct, [id number] contact. Thank you Dr. Johnson, for allowing me to participate in this patient's care. Further recommendations will depend on the patient's clinical course. Please do not hesitate to contact me if you have any questions or concerns. This medical document was created using an electronic medical record system with [employer] system. Although these documentations are being carefully reviewed, there may still be some phonetic and typographical changes. The errors are purely typographical, due to imperfection on the software program, and do not reflect any compromise in the patient's medical care. Dietary Evaluation Review Comments: 1) If GI is accessible consider Nepro 1.8 @ 20 ml/hr with current rate of propofol on board 2) If pt remains NPO >7days of NPO status, provide TPN to meet at least 75% of estimated needs 3) Advance pt diet when medically feasible to a Renal Standard diet modified per DIRECTOR EXPORT recommendations Expected Outcomes/Goals: 1) Pt to receive nutrition support within 7 days of NPO status 2) Pt diet to advance 3) F/U in 2-3 days Plan discussed with: Other (JACEK Robles) Critical Care Time(min): 35 EB DEJESUS MD Jul 13, 2024 21:39
--- NOTE | 2024-07-13 22:17 | DVHPN2 ---
Progress Note - Dictate Date Seen: Jul 13, 2024 Has the PT tested + for MRSA If YES, has PT been informed?: No Medical Necessity Reason Pt with a Central, PICC or Fol: Yes The following are medically ne: Central Line Subjective Patient was seen and evaluated in follow up in the ICU. Patient is intubated and sedated on ventilator. 30% FiO2. Patient remains on vasopressors, down to 10 mics. Chest x-ray shows cardiomegaly, left basilar atelectasis and small left pleural effusion. WBC 25.3, HGB 8.4, HCT 25.2, BUN 38, Dipper [place] Baker 3.90, AST 1090, ALT 1953, Ferritin >07331. vital signs Vital Sign Date Time Temp Pulse Resp B/P (MAP) Pulse Ox O2 Delivery O2 Flow Rate FiO2 07/13/24 22:06 69 18 119/59 (79) 100 30 07/13/24 20:00 Mechanical Ventilator+ 07/13/24 18:15 99.0 210.2 Total Intake and Output 07/12/24 07/12/24 07/13/24 15:00 23:00 07:00 Intake Total 674.454 ml 736.784 ml 744.153 ml Balance 674.454 ml 736.784 ml 744.153 ml medications Current Medications Medications Dose Ordered Sig/Rey Route Start Time Stop Time Status Last Admin Dose Admin Vancomycin HCl 0 ml @ 0 mls/hr UD IV 07/08/24 17:00 Sodium Chloride 10 ml Q8HR IV 07/09/24 06:00 07/13/24 21:38 10 ML Vasopressin 20 units/Sodium Chloride 100 ml @ 9 mls/hr Q11H7M IV 07/09/24 13:15 07/13/24 20:27 9 MLS/HR Norepinephrine Bitartrate 32 mg/ Sodium Chloride 250 ml @ 0.938 mls/ hr Q24H IV 07/09/24 15:30 07/12/24 07:58 4.688 MLS/HR Phenylephrine HCl 80 mg/Sodium Chloride 250 ml @ 7.5 mls/hr Q24H IV 07/09/24 15:45 07/10/24 08:08 33.75 MLS/HR Diagnostic Test (Pha) 1 strip Q4HR 07/09/24 18:00 07/13/24 17:27 1 STRIP Epinephrine HCl 250 ml @ 7.5 mls/hr Q24H IV 07/09/24 17:00 07/10/24 05:30 7.5 MLS/HR Pantoprazole Sodium 40 mg DAILY IV 07/10/24 10:00 07/13/24 10:36 40 MG Fentanyl Citrate 250 ml @ 2.5 mls/hr Q24H IV 07/09/24 17:30 07/13/24 18:38 30 MLS/HR Hydrocortisone Sodium Succinate 100 mg Q8H IV 07/09/24 17:44 07/13/24 17:24 100 MG Propofol 100 ml @ 2.79 mls/hr Q24H IV 07/09/24 20:00 07/13/24 17:24 11.16 MLS/HR Dextrose 50 ml PRN PRN IV 07/10/24 17:45 07/11/24 09:44 50 ML Dextrose 1,000 ml @ 30 mls/hr Q24H IV 07/12/24 09:00 07/12/24 11:21 30 MLS/HR Epoetin Justus-epbx 10,000 unit MWF SC 07/14/24 21:00 Meropenem 50 ml @ 17 mls/hr Q24H IV 07/13/24 22:00 07/13/24 21:38 17 MLS/HR Albumin Human 50 ml @ 100 mls/hr PRN PRN IV 07/13/24 08:30 Cancel Albumin Human 50 ml @ 50 mls/hr PRN PRN IV 07/13/24 08:20 Enteral Nutritional Formula 1,000 ml 30ML/HR GT 07/13/24 12:00 objective GENERAL: Intubated on ventilator. Morbidly obese. LUNGS: Decreased breath sounds. CARDIOVASCULAR: Heart sounds are good. ABDOMEN: Soft. EXT: Significant edema to BLE, more significant on RLE. SKIN: Ecchymosis to right upper thigh. laboratory and microbiology Laboratory Tests 07/13/24 03:50 Test 07/13/24 03:50 Range/Units Serum Glucose 122 H 74-106 mg/dL Problem List Hypotension secondary to septic shock. Coronary artery disease status post CABG in 2021. History of hypertension. Hyperlipidemia. Hyperkalemia. Acute anemia. Thrombocytopenia. Transaminitis. End-stage renal disease on hemodialysis. Renal cell carcinoma status post left nephrectomy. COPD. Asthma. Morbid obesity. Dilated cardiomyopathy. Assessment/Plan Continued all current supportive medical care. Dopamine drip. GI prophylactics. IV antibiotics as ordered. Vasopressors for hemodynamic support. Additional plan as per the hospital course. Critical care time of 45 minutes provided to include time spent evaluation of patient at bedside, when appropriate patient/family education for diagnosis, treatment plan, review of pertinent medical information and discussion of care with specialty providers and PCP. Mechanical ventilator parameters, treatment and adjustments have personally been reviewed by me and treatment plan by clinical radiologist has also been reviewed. Dietary Evaluation Review Comments: 1) If GI is accessible consider Nepro 1.8 @ 20 ml/hr with current rate of propofol on board 2) If pt remains NPO >7days of NPO status, provide TPN to meet at least 75% of estimated needs 3) Advance pt diet when medically feasible to a Renal Standard diet modified per SALES DEPARTMENT MANAGER recommendations Expected Outcomes/Goals: 1) Pt to receive nutrition support within 7 days of NPO status 2) Pt diet to advance 3) F/U in 2-3 days Plan discussed with: Other FRIDA SIMMONS MD Jul 13, 2024 22:17
[2024-07-14] VITALS (98 sets, daily range): BP systolic 87–142; BP diastolic 27–80; PULSE 62–84; RESP 15–21; TEMP 95–98.6; O2SAT 63–100
[2024-07-14] MEDS: SODIUM CHL 0.9% 1000 ML BAG XX ONE (02:20)
[2024-07-14 03:31] LABS: Hematocrit 26.3 % (41.0-53.0); Hemoglobin 8.8 g/dL (13.5-17.5); Mean Corpuscular Hemoglobin 35.6 pg (28.0-32.0); Mean Corpuscular Hgb Conc. 33.5 g/dL (32.0-36.0); Red Blood Cells 2.47 10^6/uL (4.5-5.90)
[2024-07-14 03:35] LABS: Mean Corpuscular Volume 106.1 fL (80.0-100.0); Platelet Count (auto) 48 10^3/uL (140-450); Red Cell Distribution Width 16.3 % (11.8-14.3); White Blood Cell 19.5 10^3/uL (4.4-10.8)
[2024-07-14 03:42] LABS: Anion Gap 10 (5-15); Carbon Dioxide 30 mmol/L (20-31); Potassium 4.7 mmol/L (3.5-5.1)
[2024-07-14 03:43] LABS: Basophils % (manual) 0 (0.0-2.0); Blast Cells 0; Eosinophils % (manual) 0 (0-7); Metamyelocytes % 0; Monocytes % (manual) 0 (0-12); Promyelocytes % 0; Reactive Lymphocytes 0
[2024-07-14 03:48] LABS: BUN/Creatinine Ratio 12.3 (10.0-20.0)
[2024-07-14 04:08] LABS: Blood Urea Nitrogen 48 mg/dL (9-23); Calcium 7.7 mg/dL (8.7-10.4); Chloride 95 mmol/L (98-107); Glucose 154 mg/dL (74-106); Sodium 135 mmol/L (136-145)
[2024-07-14 04:10] LABS: INR 2.06 (0.9-1.15); Partial Thromboplastin Time 36.7 SEC (24.5-34.5); Prothrombin Time 20.3 sec (9.3-11.8)
[2024-07-14 05:04] LABS: Anisocytosis Slight; Band Neutrophils % (manual) 12; Lymphocytes % (manual) 3 (10.0-50.0); Macrocytosis Moderate; Myelocytes % 1; Platelet Estimate Decreased
[2024-07-14 05:05] LABS: Large Platelets FEW; Stomatocytes Few; Tear Drop Cells MODERATE
--- NOTE | 2024-07-14 05:21 | DVH ---
CHEST RADIOGRAPH Indication: line placement Technique: Single frontal view of the chest was obtained Comparison: XY CHEST PORTABLE on DOS: 07/13/24, XY CHEST PORTABLE on DOS: 07/12/24, XY CHEST PORTABLE o n DOS: 07/11/24, XY CHEST XRAY 1 VIEW on DOS: 07/10/24, XY CHEST PORTABLE on DOS: 07/09/24, XY CHEST POR TABLE on DOS: 07/13/24 FINDINGS: Lines and Tubes: Endotracheal tube projects 2.2 cm above the quin. Enteric tube tip projects over t he expected region of the stomach. Lungs: Left basilar atelectasis. Pleura: Small left pleural effusion. No pneumothorax. Cardiomediastinal contours: Cardiomegaly. Bones: No acute osseous abnormality. IMPRESSION: Cardiomegaly, left basilar atelectasis and small left pleural effusion.
[2024-07-14 08:07] LABS: Base Excess 0.8 mmol/L (-2.0-3.0)
--- NOTE | 2024-07-14 08:40 | DVHPN2 ---
Subjective Intubated and sedated Just initiated tube feeding On Levophed and vasopressin drips Reviewed: Care Plan, H&P, Labs, Medications Changes from previous H/P or p: Changes General: Per HPI Eyes: No Pain, No Vision change, No Conjunctivae inflammation, No Eyelid inflammation, No Other, No Redness ENT: No Ear pain, No Ear discharge, No Nose pain, No Nose discharge, No Nose congestion, No Mouth pain, No Mouth swelling, No Throat pain, No Throat swelling, No Other Cardiovascular: Chest Pain Respiratory: Cough Gastrointestinal: No Nausea, No Vomiting, No Abdominal Pain, No Diarrhea, No Constipation, No Melena, No Hematochezia, No Other Genitourinary: No Dysuria, No Frequency, No Incontinence, No Hematuria, No Retention, No Other Musculoskeletal: other, leg pain Skin: Other Objective Vitals Vital Signs Date Time Temp Pulse Resp B/P (MAP) Pulse Ox O2 Delivery O2 Flow Rate FiO2 07/14/24 08:19 64 18 111/61 (78) 100 30 07/14/24 06:45 98.4 209.1 07/14/24 06:00 Mechanical Ventilator+ Intake/Output Intake and Output 07/14/24 07:00 Intake Total 1982.613 ml Balance 1982.613 ml IV Total 1982.613 ml General Appearance: Other (intubated and sedated) HEENT: PERRLA Lungs: Other (Rhonchi and crackles) Cardiovascular: Regular rate, Normal S1, Normal S2 Abdomen: Normal bowel sounds, Soft, No tenderness Musculoskeletal: Other (No motor movement) Neuro: Other (Unable to assess) Skin: Wounds (See nurse notes and pictures) Psych/Mental Status: Other (Unable to assess) Medications Current Medications Medications Dose Ordered Sig/Rey Route Start Time Stop Time Status Last Admin Dose Admin Vancomycin HCl 0 ml @ 0 mls/hr UD IV 07/08/24 17:00 Sodium Chloride 10 ml Q8HR IV 07/09/24 06:00 07/14/24 06:00 10 ML Vasopressin 20 units/Sodium Chloride 100 ml @ 9 mls/hr Q11H7M IV 07/09/24 13:15 07/13/24 20:27 9 MLS/HR Norepinephrine Bitartrate 32 mg/ Sodium Chloride 250 ml @ 0.938 mls/ hr Q24H IV 07/09/24 15:30 07/12/24 07:58 4.688 MLS/HR Phenylephrine HCl 80 mg/Sodium Chloride 250 ml @ 7.5 mls/hr Q24H IV 07/09/24 15:45 07/10/24 08:08 33.75 MLS/HR Diagnostic Test (Pha) 1 strip Q4HR 07/09/24 18:00 07/14/24 06:00 1 STRIP Epinephrine HCl 250 ml @ 7.5 mls/hr Q24H IV 07/09/24 17:00 07/10/24 05:30 7.5 MLS/HR Pantoprazole Sodium 40 mg DAILY IV 07/10/24 10:00 07/13/24 10:36 40 MG Fentanyl Citrate 250 ml @ 2.5 mls/hr Q24H IV 07/09/24 17:30 07/14/24 02:19 30 MLS/HR Hydrocortisone Sodium Succinate 100 mg Q8H IV 07/09/24 17:44 07/14/24 01:11 100 MG Propofol 100 ml @ 2.79 mls/hr Q24H IV 07/09/24 20:00 07/14/24 02:19 11.16 MLS/HR Dextrose 50 ml PRN PRN IV 07/10/24 17:45 07/11/24 09:44 50 ML Dextrose 1,000 ml @ 30 mls/hr Q24H IV 07/12/24 09:00 07/12/24 11:21 30 MLS/HR Epoetin Justus-epbx 10,000 unit MWF SC 07/14/24 21:00 Meropenem 50 ml @ 17 mls/hr Q24H IV 07/13/24 22:00 07/13/24 21:38 17 MLS/HR Albumin Human 50 ml @ 100 mls/hr PRN PRN IV 07/13/24 08:30 Cancel Albumin Human 50 ml @ 50 mls/hr PRN PRN IV 07/13/24 08:20 Enteral Nutritional Formula 1,000 ml 30ML/HR GT 07/13/24 12:00 Laboratory Results Laboratory Tests 07/14/24 03:08 Chemistry Test 07/14/24 03:08 Calcium Level 7.7 mg/dL (8.7-10.4) L Coagulation Test 07/14/24 03:08 Prothrombin Time 20.3 sec (9.3-11.8) H Prothrombin Time INR 2.06 (0.9-1.15) H Activated Partial Thromboplast Time 36.7 SEC (24.5-34.5) H Blood Gas Results Test 07/13/24 10:34 07/14/24 07:48 Arterial Blood pH 7.453 (7.350-7.450) 7.381 (7.350-7.450) FiO2 % 30.0 30.0 Microbiology Microbiology Date/Time Source Procedure Growth Status 07/09/24 19:55 Trachea Gram Stain - Final Complete 07/09/24 19:55 Trachea Respiratory Culture - Final Complete 07/08/24 18:00 Blood Blood Culture - Final Escherichia coli - ESBL Complete Assessment/Plan Assessment/Plan Severe sepsis with septic shock due to bacteremia with E. coli ESBL Bacteremia with E. coli ESBL Right leg infection / cellulitis: Better Metabolic acidosis: Better with HD ESRD on HD h/o kidney CA s/p nephrectomy Hyperkalemia: resolved Thrombocytopenia Coagulopathy LLL atelectasis and effusion CAD Mixed hyperlipidemia DM2 Obesity Hypoglycemia PLAN: 07/14/2024: Continue IV antibiotics: Meropenem and Vanco Vasopressors prn Tube feeding D%W for hypoglycemia, DC once tolerating feeding IV hydrocortisone Taper sedation as tolerated HD per nephrology Vascular surgery (Dr. Mcbride) is following ID consult Plan discussed with: Other Date of Service: Jul 14, 2024 Billing Provider: DG AQUINO MD Common Visit Codes: NOT BILLABLE DG AQUINO MD Jul 14, 2024 08:40
--- NOTE | 2024-07-14 14:33 | DVHPN2 ---
Progress Note Date Seen: Jul 14, 2024 Has the PT tested + for MRSA If YES, has PT been informed?: No Medical Necessity Reason Pt with a Central, PICC or Fol: Yes The following are medically ne: Central Line Subjective Review of Systems: RESPIRATORY:Abnormal Objective vital signs Vital Sign Date Time Temp Pulse Resp B/P (MAP) Pulse Ox O2 Delivery O2 Flow Rate FiO2 07/14/24 14:00 63 07/14/24 14:00 30 07/14/24 14:00 21 97 Mechanical Ventilator+ 07/14/24 12:30 98.1 108/53 (71) 98.1 Total Intake and Output 07/13/24 07/13/24 07/14/24 15:00 23:00 07:00 Intake Total 688.894 ml 663.419 ml 630.3 ml Balance 688.894 ml 663.419 ml 630.3 ml medications Current Medications Medications Dose Ordered Sig/Rey Route Start Time Stop Time Status Last Admin Dose Admin Vancomycin HCl 0 ml @ 0 mls/hr UD IV 07/08/24 17:00 Sodium Chloride 10 ml Q8HR IV 07/09/24 06:00 07/14/24 06:00 10 ML Vasopressin 20 units/Sodium Chloride 100 ml @ 9 mls/hr Q11H7M IV 07/09/24 13:15 07/14/24 08:47 9 MLS/HR Norepinephrine Bitartrate 32 mg/ Sodium Chloride 250 ml @ 0.938 mls/ hr Q24H IV 07/09/24 15:30 07/12/24 07:58 4.688 MLS/HR Phenylephrine HCl 80 mg/Sodium Chloride 250 ml @ 7.5 mls/hr Q24H IV 07/09/24 15:45 07/10/24 08:08 33.75 MLS/HR Diagnostic Test (Pha) 1 strip Q4HR 07/09/24 18:00 07/14/24 11:22 1 STRIP Epinephrine HCl 250 ml @ 7.5 mls/hr Q24H IV 07/09/24 17:00 07/10/24 05:30 7.5 MLS/HR Pantoprazole Sodium 40 mg DAILY IV 07/10/24 10:00 07/14/24 09:10 40 MG Fentanyl Citrate 250 ml @ 2.5 mls/hr Q24H IV 07/09/24 17:30 07/14/24 10:28 30 MLS/HR Hydrocortisone Sodium Succinate 100 mg Q8H IV 07/09/24 17:44 07/14/24 09:11 100 MG Propofol 100 ml @ 2.79 mls/hr Q24H IV 07/09/24 20:00 07/14/24 10:21 11.16 MLS/HR Dextrose 50 ml PRN PRN IV 07/10/24 17:45 07/11/24 09:44 50 ML Dextrose 1,000 ml @ 30 mls/hr Q24H IV 07/12/24 09:00 07/14/24 11:20 30 MLS/HR Epoetin Justus-epbx 10,000 unit MWF SC 07/14/24 21:00 Meropenem 50 ml @ 17 mls/hr Q24H IV 07/13/24 22:00 07/13/24 21:38 17 MLS/HR Albumin Human 50 ml @ 100 mls/hr PRN PRN IV 07/13/24 08:30 Cancel Albumin Human 50 ml @ 50 mls/hr PRN PRN IV 07/13/24 08:20 Enteral Nutritional Formula 1,000 ml 30ML/HR GT 07/13/24 12:00 Examination: LUNGS:Abnormal, SKIN:Abnormal laboratory and microbiology Laboratory Tests 07/14/24 03:08 Test 07/14/24 03:08 Range/Units Serum Glucose 154 H 74-106 mg/dL Microbiology Date/Time Source Procedure Growth Status 07/09/24 19:55 Trachea Gram Stain - Final Complete 07/09/24 19:55 Trachea Respiratory Culture - Final Complete 07/08/24 18:00 Blood Blood Culture - Final Escherichia coli - ESBL Complete Problem List/Assessment/Plan Problem List/Assessment/Plan ESRD on HD hyperkalemia uremic acidosis / lactic acidosis septic shock with gram-negative anabella bacteremia lower extremity wound anemia hypoglycemia HD treatment tomorrow fluid removal as tolerated Ecoli bacteremia ABX keep MAP > 65 Plan discussed with: Other Dietary Evaluation Review Comments: 1) If GI is accessible consider Nepro 1.8 @ 20 ml/hr with current rate of propofol on board 2) If pt remains NPO >7days of NPO status, provide TPN to meet at least 75% of estimated needs 3) Advance pt diet when medically feasible to a Renal Standard diet modified per TRANSMISSION SUPERINTENDENT recommendations Expected Outcomes/Goals: 1) Pt to receive nutrition support within 7 days of NPO status 2) Pt diet to advance 3) F/U in 2-3 days LULU RICHARD MD Jul 14, 2024 14:33
--- NOTE | 2024-07-14 19:57 | DVHPN2 ---
Progress Note - Dictate Date Seen: Jul 14, 2024 Has the PT tested + for MRSA If YES, has PT been informed?: No Medical Necessity Reason Pt with a Central, PICC or Fol: Yes The following are medically ne: Central Line Subjective Patient was seen and evaluated in follow up in the ICU. Patient is intubated and sedated on ventilator. FiO2 remains at 30%. TFs were started this morning. WBC 19.5, HGB 8.8, HCT 26.3, PT 20.3, INR 2.06, PTT 36.7, NA 135, CL 95, BUN 48, CERTIFIED PROFESSIONAL CONTROLLER 3.89. Chest x-ray is unchanged from previous. vital signs Vital Sign Date Time Temp Pulse Resp B/P (MAP) Pulse Ox O2 Delivery O2 Flow Rate FiO2 07/14/24 12:30 98.1 65 16 108/53 (71) 96 98.1 07/14/24 12:00 Mechanical Ventilator+ 30 30 Total Intake and Output 07/13/24 07/13/24 07/14/24 15:00 23:00 07:00 Intake Total 688.894 ml 663.419 ml 630.3 ml Balance 688.894 ml 663.419 ml 630.3 ml medications Current Medications Medications Dose Ordered Sig/Rey Route Start Time Stop Time Status Last Admin Dose Admin Vancomycin HCl 0 ml @ 0 mls/hr UD IV 07/08/24 17:00 Sodium Chloride 10 ml Q8HR IV 07/09/24 06:00 07/14/24 06:00 10 ML Vasopressin 20 units/Sodium Chloride 100 ml @ 9 mls/hr Q11H7M IV 07/09/24 13:15 07/14/24 08:47 9 MLS/HR Norepinephrine Bitartrate 32 mg/ Sodium Chloride 250 ml @ 0.938 mls/ hr Q24H IV 07/09/24 15:30 07/12/24 07:58 4.688 MLS/HR Phenylephrine HCl 80 mg/Sodium Chloride 250 ml @ 7.5 mls/hr Q24H IV 07/09/24 15:45 07/10/24 08:08 33.75 MLS/HR Diagnostic Test (Pha) 1 strip Q4HR 07/09/24 18:00 07/14/24 11:22 1 STRIP Epinephrine HCl 250 ml @ 7.5 mls/hr Q24H IV 07/09/24 17:00 07/10/24 05:30 7.5 MLS/HR Pantoprazole Sodium 40 mg DAILY IV 07/10/24 10:00 07/14/24 09:10 40 MG Fentanyl Citrate 250 ml @ 2.5 mls/hr Q24H IV 07/09/24 17:30 07/14/24 10:28 30 MLS/HR Hydrocortisone Sodium Succinate 100 mg Q8H IV 07/09/24 17:44 07/14/24 09:11 100 MG Propofol 100 ml @ 2.79 mls/hr Q24H IV 07/09/24 20:00 07/14/24 10:21 11.16 MLS/HR Dextrose 50 ml PRN PRN IV 07/10/24 17:45 07/11/24 09:44 50 ML Dextrose 1,000 ml @ 30 mls/hr Q24H IV 07/12/24 09:00 07/14/24 11:20 30 MLS/HR Epoetin Justus-epbx 10,000 unit MWF SC 07/14/24 21:00 Meropenem 50 ml @ 17 mls/hr Q24H IV 07/13/24 22:00 07/13/24 21:38 17 MLS/HR Albumin Human 50 ml @ 100 mls/hr PRN PRN IV 07/13/24 08:30 Cancel Albumin Human 50 ml @ 50 mls/hr PRN PRN IV 07/13/24 08:20 Enteral Nutritional Formula 1,000 ml 30ML/HR GT 07/13/24 12:00 objective GENERAL: Intubated on ventilator. Morbidly obese. LUNGS: Decreased breath sounds. CARDIOVASCULAR: Heart sounds are good. ABDOMEN: Soft. EXT: Significant edema to BLE, more significant on RLE. SKIN: Ecchymosis to right upper thigh. laboratory and microbiology Laboratory Tests 07/14/24 03:08 Test 07/14/24 03:08 Range/Units Serum Glucose 154 H 74-106 mg/dL Problem List Hypotension secondary to septic shock. Coronary artery disease status post CABG in 2021. History of hypertension. Hyperlipidemia. Hyperkalemia. Acute anemia. Thrombocytopenia. Transaminitis. End-stage renal disease on hemodialysis. Renal cell carcinoma status post left nephrectomy. COPD. Asthma. Morbid obesity. Dilated cardiomyopathy. Assessment/Plan Continued all current supportive medical care. Dopamine drip. GI prophylactics. IV antibiotics as ordered. Vasopressors for hemodynamic support. Additional plan as per the hospital course. Critical care time of 45 minutes provided to include time spent evaluation of patient at bedside, when appropriate patient/family education for diagnosis, treatment plan, review of pertinent medical information and discussion of care with specialty providers and PCP. Mechanical ventilator parameters, treatment and adjustments have personally been reviewed by me and treatment plan by screening specialist has also been reviewed. Dietary Evaluation Review Comments: 1) If GI is accessible consider Nepro 1.8 @ 20 ml/hr with current rate of propofol on board 2) If pt remains NPO >7days of NPO status, provide TPN to meet at least 75% of estimated needs 3) Advance pt diet when medically feasible to a Renal Standard diet modified per PLUMBER'S ASSISTANT recommendations Expected Outcomes/Goals: 1) Pt to receive nutrition support within 7 days of NPO status 2) Pt diet to advance 3) F/U in 2-3 days Plan discussed with: Other FRIDA SIMMONS MD Jul 14, 2024 13:05
--- NOTE | 2024-07-14 20:00 | DVHPN2 ---
Consult Progress Note Date Seen: Jul 12, 2024 Subjective Patient reports: Other (remains intubated on 6 of levofed , his right leg rash is getting smaller and having less drainage. he is having elevated temperatures as high as 99 ) Objective vital signs Vital Sign Date Time Temp Pulse Resp B/P (MAP) Pulse Ox O2 Delivery O2 Flow Rate FiO2 07/14/24 18:47 100/49 07/14/24 18:30 96.6 69 15 100 205.9 07/14/24 18:21 30 07/14/24 18:00 Mechanical Ventilator+ Total Intake and Output 07/13/24 07/13/24 07/14/24 15:00 23:00 07:00 Intake Total 688.894 ml 663.419 ml 630.3 ml Balance 688.894 ml 663.419 ml 630.3 ml medications Current Medications Medications Dose Ordered Sig/Rey Route Start Time Stop Time Status Last Admin Dose Admin Vancomycin HCl 0 ml @ 0 mls/hr UD IV 07/08/24 17:00 Sodium Chloride 10 ml Q8HR IV 07/09/24 06:00 07/14/24 15:04 10 ML Vasopressin 20 units/Sodium Chloride 100 ml @ 9 mls/hr Q11H7M IV 07/09/24 13:15 07/14/24 08:47 9 MLS/HR Norepinephrine Bitartrate 32 mg/ Sodium Chloride 250 ml @ 0.938 mls/ hr Q24H IV 07/09/24 15:30 07/14/24 18:21 0.938 MLS/HR Phenylephrine HCl 80 mg/Sodium Chloride 250 ml @ 7.5 mls/hr Q24H IV 07/09/24 15:45 07/10/24 08:08 33.75 MLS/HR Diagnostic Test (Pha) 1 strip Q4HR 07/09/24 18:00 07/14/24 18:09 1 STRIP Epinephrine HCl 250 ml @ 7.5 mls/hr Q24H IV 07/09/24 17:00 07/10/24 05:30 7.5 MLS/HR Pantoprazole Sodium 40 mg DAILY IV 07/10/24 10:00 07/14/24 09:10 40 MG Fentanyl Citrate 250 ml @ 2.5 mls/hr Q24H IV 07/09/24 17:30 07/14/24 10:28 30 MLS/HR Hydrocortisone Sodium Succinate 100 mg Q8H IV 07/09/24 17:44 07/14/24 17:48 100 MG Propofol 100 ml @ 2.79 mls/hr Q24H IV 07/09/24 20:00 07/14/24 18:47 5.58 MLS/HR Dextrose 50 ml PRN PRN IV 07/10/24 17:45 07/11/24 09:44 50 ML Dextrose 1,000 ml @ 30 mls/hr Q24H IV 07/12/24 09:00 07/14/24 11:20 30 MLS/HR Epoetin Justus-epbx 10,000 unit MWF SC 07/14/24 21:00 Meropenem 50 ml @ 17 mls/hr Q24H IV 07/13/24 22:00 07/13/24 21:38 17 MLS/HR Albumin Human 50 ml @ 100 mls/hr PRN PRN IV 07/13/24 08:30 Cancel Albumin Human 50 ml @ 50 mls/hr PRN PRN IV 07/13/24 08:20 Enteral Nutritional Formula 1,000 ml 30ML/HR GT 07/13/24 12:00 Physical Exam: - General: Intubated and sedated. - Neck: Supple. No masses. - HEENT: PERRL. Normal lids and conjunctiva. Moist mucous membranes. Oropharynx without lesions, exudates, or excessive erythema. Normal appearance of the external aspects of the nose and ears. - Heart: Regular rhythm, normal rate. No murmur. No lower extremity edema. - Lungs: Normal respiratory effort. Clear to auscultation bilaterally. No wheezes. No crackles. - Abdomen: Soft. Non-tender. Non-distended. No masses or abdominal hernia. - MSK: Right thigh tenderness. Normal strength and tone in all four limbs. - Skin: Warm and dry, no rashes. - Neuro: Unresponsive due to sedation. No facial droop or slurred speech. Extra- ocular movements intact. - Psych: Unable to assess due to sedation. laboratory and microbiology Laboratory Tests 07/14/24 03:08 Test 07/14/24 03:08 Range/Units Serum Glucose 154 H 74-106 mg/dL Problem List/Assessment/Plan Problems(with codes): (1) Necrotizing fasciitis of lower leg (2) Elevated liver enzymes (3) End-stage renal disease on hemodialysis (4) Acute kidney failure, unspecified (5) Chronic kidney disease, unspecified (6) Severe anemia (7) Sepsis, unspecified organism (8) Pneumonia, unspecified organism (9) Generalized weakness (10) Sepsis (11) Renal failure (12) Purpura (13) Pancytopenia (14) Pneumonia Problem List/Assessment/Plan ID Problem List: - Septic shock - Necrotizing fasciitis of right lower extremity - End-stage renal disease on hemodialysis - Kidney cancer status post nephrectomy - Coronary artery disease - Hyperlipidemia - Status post CABG - ESBL Bacteria - Pneumonia Assessment This is a 58 y.o. male with a past medical history of kidney cancer status post nephrectomy, end-stage renal disease on hemodialysis, coronary artery disease, hyperlipidemia, and status post CABG, who presents with chest pain, fever, and right thigh tenderness concerning for necrotizing fasciitis. On admission, the patient had a temperature of 104F, hypotension (BP 78/45 mmHg), lactic acid 3.8 mmol/L, elevated AST (3044 U/L) and ALT (560 U/L), WBC count 37,000/mm, hemoglobin 7.5 g/dL, and platelets 62,000/mm. Physical examination notable for right thigh tenderness and generalized weakness. Initial imaging included CT scan of the right thigh showing subcutaneous edema with no gas in soft tissues and small bilateral knee effusions. Chest CT revealed bronchiovascular crowding; underlying pulmonary vascular condition cannot be excluded. Blood cultures are preliminarily positive for gram-negative rods. Respiratory cultures show gram-positive issa. An anaerobic bottle was positive for gram- negative rods. Laboratory studies reveal persistent elevation of liver enzymes with AST 3009 U/L and ALT 1976 U/L. Lactic acid increased to 15 mmol/L, platelets decreased to 32,000/mm. Peripheral smear shows Vulcan cells. Potassium is elevated at 6 mEq/L. The patient is intubated and sedated for acute hypoxic respiratory failure and altered mental status. 07/10: Undergoing ultra filtration and whitecount is elevated. Pressures are starting to come down since initiating meropenem and platelets are still low at 57 07/11: has an elevated whitecount of 19.1 , LFTs and renal function continue to worsen. blood cultures show ESBL E Coli . chest xray shows a left small bascular airspace disease . Fibrinogen is 433 appears to be adequate and patient is not having any additional signs of bleed . hemoglobin is stable at 8.4 and can hold off on additional transfusions outside of keeping hemoglobin above 7 and platelets above 50 07/12: whitecount is 28.43 , liver enzymes remain elevated at 2955 ALT and 2723 AST , [place] [address] Plan: - keep MAP goal to 65 for patient to maintain blood pressure support - likely etiology of ongoing septic shock is bacterial given gram negative anabella in blood , would not initiate any selective anaerobic coverage at this time -recommend consultations with hematology and oncology for further evaluation due to absence of blood transfusion and liver disease with suspicions raised for HLH syndrome and patients is having diagnostic criteria such as fevers , cytopenias, elevated liver enzymes and a very high ferritin - follow up on TTE HUS - Continue meropenem for broad-spectrum coverage targeting ESBL e.coli bacteremia - continue vancomycin empirically in setting of septic shock - would further evaluate patients liver failure , elevated platelets and elevated PT, INR - recommend abdominal ultrasound to evaluate for cirrhosis and patients elevated lactic acid - evaluate DIC and TTP and burst blood smear in setting of shock , recommend LDH haptoglobin , fibrinogen level - MAAHA is suspected after test results or if TTP is suspected recommend patient get plasma exchange - test for [id number] - Cultures: Monitor blood culture results and adjust antibiotics as needed. - Surgical Consultation: Agree with general surgeon that clinical picture favors hematoma vs cellulitis , no signs of necrotizing infection at this time - Infectious Workup: Follow up on hepatitis screening; recommend HIV screening due to elevated liver enzymes. - Supportive Care: Continue vasopressor support with norepinephrine (Levophed) and epinephrine as needed for septic shock. - Laboratory Monitoring: Recheck laboratory values including CBC, CMP, lactic acid, and coagulation profile. Monitor liver function tests. - Renal Management: Coordinate with nephrology for hemodialysis management. - Isolation Precautions: Standard precautions. Authorized and Performed by: sangeetha melendrez Total critical care time: Approximately 76 minutes Due to a high probability of clinically significant, life threatening deterioration, the patient required my highest level of preparedness to intervene emergently and I personally spent this critical care time directly and personally managing the patient. This critical care time included obtaining a history; examining the patient; pulse oximetry; ordering and review of studies; arranging urgent treatment with development of a management plan; evaluation of patient's response to treatment; frequent reassessment; and, discussions with other providers. This critical care time was performed to assess and manage the high probability of imminent, life-threatening deterioration that could result in multi-organ failure. It was exclusive of separately billable procedures and treating other patients and teaching time. Plan discussed with: Other Dietary Evaluation Review Comments: 1) If GI is accessible consider Nepro 1.8 @ 20 ml/hr with current rate of propofol on board 2) If pt remains NPO >7days of NPO status, provide TPN to meet at least 75% of estimated needs 3) Advance pt diet when medically feasible to a Renal Standard diet modified per GENERAL DISTILLERY WORKER recommendations Expected Outcomes/Goals: 1) Pt to receive nutrition support within 7 days of NPO status 2) Pt diet to advance 3) F/U in 2-3 days SANGEETHA MELENDREZ MD Jul 14, 2024 20:00
[2024-07-14] MEDS: EPOETIN ALFA-EPBX 10,000 UNIT/1ML VIAL SC SCH (21:00)
--- NOTE | 2024-07-14 22:06 | DVHPN2 ---
Progress Note - Dictate Date Seen: Jul 14, 2024 Has the PT tested + for MRSA If YES, has PT been informed?: No Medical Necessity Reason Pt with a Central, PICC or Fol: Yes The following are medically ne: Central Line Subjective Patient seen and examined at bedside. Sedated, intubated on mechanical ventilator. Overnight events reviewed vital signs Vital Sign Date Time Temp Pulse Resp B/P (MAP) Pulse Ox O2 Delivery O2 Flow Rate FiO2 07/14/24 21:43 103/47 07/14/24 20:10 63 18 94 30 07/14/24 18:30 96.6 205.9 07/14/24 18:00 Mechanical Ventilator+ Total Intake and Output 07/13/24 07/13/24 07/14/24 15:00 23:00 07:00 Intake Total 688.894 ml 663.419 ml 630.3 ml Balance 688.894 ml 663.419 ml 630.3 ml medications Current Medications Medications Dose Ordered Sig/Rey Route Start Time Stop Time Status Last Admin Dose Admin Vancomycin HCl 0 ml @ 0 mls/hr UD IV 07/08/24 17:00 Sodium Chloride 10 ml Q8HR IV 07/09/24 06:00 07/14/24 15:04 10 ML Vasopressin 20 units/Sodium Chloride 100 ml @ 9 mls/hr Q11H7M IV 07/09/24 13:15 07/14/24 08:47 9 MLS/HR Norepinephrine Bitartrate 32 mg/ Sodium Chloride 250 ml @ 0.938 mls/ hr Q24H IV 07/09/24 15:30 07/14/24 18:21 0.938 MLS/HR Phenylephrine HCl 80 mg/Sodium Chloride 250 ml @ 7.5 mls/hr Q24H IV 07/09/24 15:45 07/10/24 08:08 33.75 MLS/HR Diagnostic Test (Pha) 1 strip Q4HR 07/09/24 18:00 07/14/24 18:09 1 STRIP Epinephrine HCl 250 ml @ 7.5 mls/hr Q24H IV 07/09/24 17:00 07/10/24 05:30 7.5 MLS/HR Pantoprazole Sodium 40 mg DAILY IV 07/10/24 10:00 07/14/24 09:10 40 MG Fentanyl Citrate 250 ml @ 2.5 mls/hr Q24H IV 07/09/24 17:30 07/14/24 21:43 20 MLS/HR Hydrocortisone Sodium Succinate 100 mg Q8H IV 07/09/24 17:44 07/14/24 17:48 100 MG Propofol 100 ml @ 2.79 mls/hr Q24H IV 07/09/24 20:00 07/14/24 18:47 5.58 MLS/HR Dextrose 50 ml PRN PRN IV 07/10/24 17:45 07/11/24 09:44 50 ML Dextrose 1,000 ml @ 30 mls/hr Q24H IV 07/12/24 09:00 07/14/24 11:20 30 MLS/HR Epoetin Justus-epbx 10,000 unit MWF SC 07/14/24 21:00 Meropenem 50 ml @ 17 mls/hr Q24H IV 07/13/24 22:00 07/13/24 21:38 17 MLS/HR Albumin Human 50 ml @ 100 mls/hr PRN PRN IV 07/13/24 08:30 Cancel Albumin Human 50 ml @ 50 mls/hr PRN PRN IV 07/13/24 08:20 Enteral Nutritional Formula 1,000 ml 30ML/HR GT 07/13/24 12:00 objective Gen.: Patient lying in bed in medical ICU. Sedated, intubated on mechanical ventilator. Head: Normocephalic, atraumatic. Eyes: PERRLA. Ears: Normal external anatomy. Throat: Endotracheal tube and orogastric tube in place. Neck: Supple, trachea midline. Chest: Transmitted breath sounds bilaterally. Decreased air entry bilaterally. No wheezing. Bibasilar crackles. Cardiovascular: Positive S1, positive S2. Regular rate and rhythm. Abdomen: Positive bowel sounds in all 4 quadrants. Soft, nontender, nondistended. : Whiting in place. Normal external genitalia. Rectal: Deferred. Skin: Warm, dry. Intact. Extremities: 2+ radial pulses bilaterally. No lower extremity edema. Neuro: Sedated. laboratory and microbiology Laboratory Tests 07/14/24 03:08 Test 07/14/24 03:08 Range/Units Serum Glucose 154 H 74-106 mg/dL Assessment/Plan Impression: Acute hypoxic respiratory failure On mechanical ventilator Pulmonary edema Necrotizing fasciitis Septic shock Morbid obesity Events: Remains on vent support On AC mode; RR 16, VT 450, PEEP 8, FiO2 30% ABG reviewed, compensated CXR reviewed, demonstrates Cardiomegaly, left basilar atelectasis and small left pleural effusion. Devices in place. Pt is not tolerating turns. Hemoglobin stable - continue to monitor Platelet count trending up - 48 K Sedated on Propofol, Fentanyl On pressors for hemodynamic support Levophed 4 mcg/min Titrate to keep MAP above 65 mmHg/SBP above 90 mmHg. Tube feeds for nutritional support IV fluids - D5W + 2 amps bicarb at 50 ml/hr. Continue antibiotics Continue IV steroids WBC trending down, 19.5 K Wound care HD per Nephrology - s/p HD yesterday. Monitor renal function Monitor electrolytes. Supplement as necessary. Nephrology recommendations appreciated Labs and imaging reviewed. Rest of plan as noted below. Plan: s/p intubation on mechanical ventilator. CXR image and report reviewed. Left mid and lower lung zone opacification which may represent pneumonia with possible small left-sided pleural effusion. Devices in place. On AC mode; RR 16, VT 450, PEEP 8, FiO2 30% Titrate FIO2 to keep O2 saturation above 90%. VAP bundle. Daily ABG and CXR while intubated Sedate for ventilator synchrony Continue antibiotics. F/u cultures. Continue IV steroids On multiple pressors for hemodynamic support Titrate to keep MAP above 65 mmHg/SBP above 90 mmHg. Monitor renal function Monitor electrolytes. Supplement as necessary. Monitor ins and outs. Maintain euvolemia. GI prophylaxis. DVT prophylaxis. Prognosis: Poor given patient's multiple co-morbidities. Condition: Critical Rest of plan per hospitalist and other consultants. A total of 35 minutes of critical care time was spent reviewing the patient record, examining the patient, making a diagnostic and therapeutic plan, discussing this plan with the medical personnel, following up on diagnostic studies and following the patient for clinical stability excluding any and all procedures. At least 50% of this time was spent in direct, [id number] contact. Thank you Dr. Johnson, for allowing me to participate in this patient's care. Further recommendations will depend on the patient's clinical course. Please do not hesitate to contact me if you have any questions or concerns. This medical document was created using an electronic medical record system with [employer] system. Although these documentations are being carefully reviewed, there may still be some phonetic and typographical changes. The errors are purely typographical, due to imperfection on the software program, and do not reflect any compromise in the patient's medical care. Dietary Evaluation Review Comments: 1) If GI is accessible consider Nepro 1.8 @ 20 ml/hr with current rate of propofol on board 2) If pt remains NPO >7days of NPO status, provide TPN to meet at least 75% of estimated needs 3) Advance pt diet when medically feasible to a Renal Standard diet modified per MEDICARE CONTACT SPECIALIST recommendations Expected Outcomes/Goals: 1) Pt to receive nutrition support within 7 days of NPO status 2) Pt diet to advance 3) F/U in 2-3 days Plan discussed with: Other (JACEK Padron) Critical Care Time(min): 35 EB DEJESUS MD Jul 14, 2024 22:05
[2024-07-14] MEDS: VANCOMYCIN 500mg/100mL 100 ML IV ONE (22:29)
[2024-07-15] VITALS (110 sets, daily range): BP systolic 91–157; BP diastolic 28–68; PULSE 66–77; RESP 10–20; TEMP 97.7–99.5; O2SAT 92–100
[2024-07-15 04:16] LABS: Basophils # (auto) 0.1 10 ^3/uL (0-0.2); Eosinophils # (auto) 0 10 ^3/uL (0-0.8); Hemoglobin 9.3 g/dL (13.5-17.5); Platelet Count (auto) 69 10^3/uL (140-450); Red Blood Cells 2.65 10^6/uL (4.5-5.90)
[2024-07-15 04:21] LABS: Basophils % (auto) 0.5 % (0.0-2.0); Hematocrit 27.7 % (41.0-53.0); Lymphocytes # (auto) 1.6 10 ^3/uL (0.4-5.4); Lymphocytes % (auto) 7.3 % (10.0-50.0); Mean Corpuscular Hemoglobin 35.1 pg (28.0-32.0); Mean Corpuscular Hgb Conc. 33.6 g/dL (32.0-36.0); Mean Corpuscular Volume 104.6 fL (80.0-100.0); Monocytes # (auto) 0.9 10 ^3/uL (0-1.3); Neutrophils # (auto) 19.6 10 ^3/uL (1.6-8.6); Neutrophils % (auto) 88.2 % (37.0-80.0); White Blood Cell 22.2 10^3/uL (4.4-10.8)
[2024-07-15 04:33] LABS: Albumin 3.5 g/dL (3.2-4.8); Anion Gap 13 (5-15); BUN/Creatinine Ratio 15.9 (10.0-20.0); Carbon Dioxide 25 mmol/L (20-31); Glucose 100 mg/dL (74-106); Magnesium 2.5 mg/dL (1.6-2.6)
[2024-07-15 04:34] LABS: Total Protein 6.3 g/dL (5.7-8.2)
[2024-07-15 04:35] LABS: Nucleated Red Blood Cells % 4.2 %
[2024-07-15 04:53] LABS: Alanine Aminotransferase 902 U/L (7-40); Alkaline Phosphatase 165 U/L (46-116); Aspartate Aminotransferase 321 U/L (13-40); Bilirubin, Total 9.4 mg/dL (0.2-1.0); Blood Urea Nitrogen 76 mg/dL (9-23); Calcium 7.1 mg/dL (8.7-10.4); Chloride 95 mmol/L (98-107); Potassium 5.2 mmol/L (3.5-5.1); Sodium 133 mmol/L (136-145)
--- NOTE | 2024-07-15 05:16 | DVH ---
CHEST RADIOGRAPH Indication: vent Technique: Single frontal view of the chest was obtained Comparison: XY CHEST PORTABLE on DOS: 07/14/24 FINDINGS: Lines and Tubes: The enteric tube terminates in the stomach. Right central venous catheter terminate s in the right atrium. Left central venous catheter terminates in the superior vena cava. There is a left subclavian stent. Lungs: Bilateral opacities are unchanged. Pleura: Small left pleural effusion. There is a right pleural effusion new since prior study. No pneumothorax. Cardiomediastinal contours: Stable. Cardiac valve prosthesis. Bones: No acute osseous abnormality. IMPRESSION: 1. Stable position of the support lines and tubes. 2. Bilateral pleural effusions and pulmonary opacities similar to prior study.
[2024-07-15 06:35] LABS: Base Excess -0.7 mmol/L (-2.0-3.0)
--- NOTE | 2024-07-15 09:28 | DVH ---
CHEST RADIOGRAPH Indication: FU VENT Technique: Single frontal view of the chest was obtained Comparison: XY CHEST PORTABLE on DOS: 07/15/24, XY CHEST PORTABLE on DOS: 07/14/24, XY CHEST PORTABLE o n DOS: 07/13/24, XY CHEST PORTABLE on DOS: 07/12/24, XY CHEST PORTABLE on DOS: 07/11/24, XY CHEST PORTAB LE on DOS: 07/15/24 FINDINGS: Lines and Tubes: The enteric tube terminates in the stomach. CVCs are removed. ET tube 4 cm from c jerry. Lungs: Bilateral opacities are unchanged. Pleura: Small left pleural effusion. There is a right pleural effusion new since prior study. No pneumothorax. Cardiomediastinal contours: Stable. Cardiac valve prosthesis. Bones: No acute osseous abnormality. IMPRESSION: Bilateral pleural effusions and pulmonary opacities similar to prior study. The enteric tube terminates in the stomach. CVCs are removed. ET tube 4 cm from quin.
--- NOTE | 2024-07-15 12:47 | DVHPN2 ---
Subjective Intubated and sedated On HD now Only on Levophed drip Reviewed: Care Plan, H&P, Labs, Medications Changes from previous H/P or p: Changes General: Per HPI Eyes: No Pain, No Vision change, No Conjunctivae inflammation, No Eyelid inflammation, No Other, No Redness ENT: No Ear pain, No Ear discharge, No Nose pain, No Nose discharge, No Nose congestion, No Mouth pain, No Mouth swelling, No Throat pain, No Throat swelling, No Other Cardiovascular: Chest Pain Respiratory: Cough Gastrointestinal: No Nausea, No Vomiting, No Abdominal Pain, No Diarrhea, No Constipation, No Melena, No Hematochezia, No Other Genitourinary: No Dysuria, No Frequency, No Incontinence, No Hematuria, No Retention, No Other Musculoskeletal: other, leg pain Skin: Other Objective Vitals Vital Signs Date Time Temp Pulse Resp B/P (MAP) Pulse Ox O2 Delivery O2 Flow Rate FiO2 07/15/24 11:57 71 19 104/39 (60) 98 30 07/15/24 08:15 98.8 209.8 07/15/24 06:00 Mechanical Ventilator+ Intake/Output Intake and Output 07/15/24 07:00 Intake Total 1500.476 ml Balance 1500.476 ml IV Total 1296.476 ml Tube Feeding 204 ml General Appearance: Other (intubated and sedated) HEENT: PERRLA Lungs: Other (Rhonchi and crackles) Cardiovascular: Regular rate, Normal S1, Normal S2 Abdomen: Normal bowel sounds, Soft, No tenderness Musculoskeletal: Other (No motor movement) Neuro: Other (Unable to assess) Skin: Wounds (See nurse notes and pictures) Psych/Mental Status: Other (Unable to assess) Medications Current Medications Medications Dose Ordered Sig/Rey Route Start Time Stop Time Status Last Admin Dose Admin Vancomycin HCl 0 ml @ 0 mls/hr UD IV 07/08/24 17:00 Sodium Chloride 10 ml Q8HR IV 07/09/24 06:00 07/15/24 06:33 10 ML Vasopressin 20 units/Sodium Chloride 100 ml @ 9 mls/hr Q11H7M IV 07/09/24 13:15 07/14/24 08:47 9 MLS/HR Norepinephrine Bitartrate 32 mg/ Sodium Chloride 250 ml @ 0.938 mls/ hr Q24H IV 07/09/24 15:30 07/14/24 18:21 0.938 MLS/HR Phenylephrine HCl 80 mg/Sodium Chloride 250 ml @ 7.5 mls/hr Q24H IV 07/09/24 15:45 07/10/24 08:08 33.75 MLS/HR Diagnostic Test (Pha) 1 strip Q4HR 07/09/24 18:00 07/15/24 09:39 1 STRIP Epinephrine HCl 250 ml @ 7.5 mls/hr Q24H IV 07/09/24 17:00 07/10/24 05:30 7.5 MLS/HR Pantoprazole Sodium 40 mg DAILY IV 07/10/24 10:00 07/15/24 09:31 40 MG Fentanyl Citrate 250 ml @ 2.5 mls/hr Q24H IV 07/09/24 17:30 07/15/24 09:31 20 MLS/HR Hydrocortisone Sodium Succinate 100 mg Q8H IV 07/09/24 17:44 07/15/24 09:31 100 MG Propofol 100 ml @ 2.79 mls/hr Q24H IV 07/09/24 20:00 07/14/24 18:47 5.58 MLS/HR Dextrose 50 ml PRN PRN IV 07/10/24 17:45 07/11/24 09:44 50 ML Dextrose 1,000 ml @ 30 mls/hr Q24H IV 07/12/24 09:00 07/14/24 11:20 30 MLS/HR Epoetin Justus-epbx 10,000 unit MWF SC 07/14/24 21:00 Meropenem 50 ml @ 17 mls/hr Q24H IV 07/13/24 22:00 07/14/24 22:17 17 MLS/HR Albumin Human 50 ml @ 100 mls/hr PRN PRN IV 07/13/24 08:30 Cancel Albumin Human 50 ml @ 50 mls/hr PRN PRN IV 07/13/24 08:20 Enteral Nutritional Formula 1,000 ml 30ML/HR GT 07/13/24 12:00 Laboratory Results Laboratory Tests 07/15/24 03:53 Chemistry Test 07/15/24 03:53 Albumin 3.5 g/dL (3.2-4.8) Calcium Level 7.1 mg/dL (8.7-10.4) L Magnesium Level 2.5 mg/dL (1.6-2.6) Total Protein 6.3 g/dL (5.7-8.2) LFT Test 07/15/24 03:53 Alanine Aminotransferase (ALT) 902 U/L (7-40) H Alkaline Phosphatase 165 U/L (46-116) H Aspartate Amino Transferase (AST) 321 U/L (13-40) H Total Bilirubin 9.4 mg/dL (0.2-1.0) H Blood Gas Results Test 07/15/24 06:27 Arterial Blood pH 7.384 (7.350-7.450) FiO2 % 30.0 Microbiology Microbiology Date/Time Source Procedure Growth Status 07/09/24 19:55 Trachea Gram Stain - Final Complete 07/09/24 19:55 Trachea Respiratory Culture - Final Complete 07/08/24 18:00 Blood Blood Culture - Final Escherichia coli - ESBL Complete Assessment/Plan Assessment/Plan Severe sepsis with septic shock due to bacteremia with E. coli ESBL Bacteremia with E. coli ESBL Right leg infection / cellulitis: Better Metabolic acidosis: Better with HD ESRD on HD h/o kidney CA s/p nephrectomy Hyperkalemia: resolved Thrombocytopenia Coagulopathy LLL atelectasis and effusion CAD Mixed hyperlipidemia DM2 Obesity Hypoglycemia PLAN: 07/14/2024: Continue IV antibiotics: Meropenem and Vanco Vasopressors prn Tube feeding D%W for hypoglycemia, DC once tolerating feeding IV hydrocortisone Taper sedation as tolerated HD per nephrology Vascular surgery (Dr. Mcbride) is following ID consult 07/15/24: HD per nephrology Taper sedation as tolerated Taper down Levophed as tolerated Tube feeding DC IV fluids IV antibiotics Monitor closely Plan discussed with: Other Date of Service: Jul 15, 2024 Billing Provider: DG AQUINO MD Common Visit Codes: NOT BILLABLE DG AQUINO MD Jul 15, 2024 12:47
--- NOTE | 2024-07-15 16:07 | DVHPN2 ---
Progress Note Date Seen: Jul 15, 2024 Has the PT tested + for MRSA If YES, has PT been informed?: No Medical Necessity Reason Pt with a Central, PICC or Fol: Yes The following are medically ne: Central Line Objective vital signs Vital Sign Date Time Temp Pulse Resp B/P (MAP) Pulse Ox O2 Delivery O2 Flow Rate FiO2 07/15/24 15:40 70 18 106/28 (54) 98 30 07/15/24 15:30 97.9 208.2 07/15/24 06:00 Mechanical Ventilator+ Total Intake and Output 07/14/24 07/14/24 07/15/24 15:00 23:00 07:00 Intake Total 634.065 ml 276.830 ml 589.581 ml Balance 634.065 ml 276.830 ml 589.581 ml medications Current Medications Medications Dose Ordered Sig/Rey Route Start Time Stop Time Status Last Admin Dose Admin Vancomycin HCl 0 ml @ 0 mls/hr UD IV 07/08/24 17:00 Sodium Chloride 10 ml Q8HR IV 07/09/24 06:00 07/15/24 13:53 10 ML Vasopressin 20 units/Sodium Chloride 100 ml @ 9 mls/hr Q11H7M IV 07/09/24 13:15 07/14/24 08:47 9 MLS/HR Norepinephrine Bitartrate 32 mg/ Sodium Chloride 250 ml @ 0.938 mls/ hr Q24H IV 07/09/24 15:30 07/14/24 18:21 0.938 MLS/HR Phenylephrine HCl 80 mg/Sodium Chloride 250 ml @ 7.5 mls/hr Q24H IV 07/09/24 15:45 07/10/24 08:08 33.75 MLS/HR Diagnostic Test (Pha) 1 strip Q4HR 07/09/24 18:00 07/15/24 13:53 1 STRIP Epinephrine HCl 250 ml @ 7.5 mls/hr Q24H IV 07/09/24 17:00 07/10/24 05:30 7.5 MLS/HR Pantoprazole Sodium 40 mg DAILY IV 07/10/24 10:00 07/15/24 09:31 40 MG Fentanyl Citrate 250 ml @ 2.5 mls/hr Q24H IV 07/09/24 17:30 07/15/24 09:31 20 MLS/HR Hydrocortisone Sodium Succinate 100 mg Q8H IV 07/09/24 17:44 07/15/24 09:31 100 MG Propofol 100 ml @ 2.79 mls/hr Q24H IV 07/09/24 20:00 07/15/24 13:52 5.58 MLS/HR Dextrose 50 ml PRN PRN IV 07/10/24 17:45 07/11/24 09:44 50 ML Epoetin Justus-epbx 10,000 unit MWF SC 07/14/24 21:00 Meropenem 50 ml @ 17 mls/hr Q24H IV 07/13/24 22:00 07/14/24 22:17 17 MLS/HR Albumin Human 50 ml @ 100 mls/hr PRN PRN IV 07/13/24 08:30 Cancel Albumin Human 50 ml @ 50 mls/hr PRN PRN IV 07/13/24 08:20 Enteral Nutritional Formula 1,000 ml 30ML/HR GT 07/13/24 12:00 Examination: GENERAL:Abnormal, LUNGS:Abnormal, ABDOMEN:Abnormal, NEURO:Abnormal laboratory and microbiology Laboratory Tests 07/15/24 03:53 Test 07/15/24 03:53 Range/Units Serum Glucose 100 74-106 mg/dL Microbiology Date/Time Source Procedure Growth Status 07/09/24 19:55 Trachea Gram Stain - Final Complete 07/09/24 19:55 Trachea Respiratory Culture - Final Complete 07/08/24 18:00 Blood Blood Culture - Final Escherichia coli - ESBL Complete Problem List/Assessment/Plan Problem List/Assessment/Plan ESRD on HD hyperkalemia uremic acidosis / lactic acidosis septic shock with gram-negative anabella bacteremia lower extremity wound anemia hypoglycemia HD today fluid removal as tolerated Ecoli bacteremia ABX keep MAP > 65 Plan discussed with: Other My Orders My Orders Orders - LULU RICHARD MD Procedure Category Date Status Time Hemodialysis Orders ORDERS 07/15/24 Transmitted 08:03 Dietary Evaluation Review Comments: 1) If GI is accessible consider Nepro 1.8 @ 20 ml/hr with current rate of propofol on board 2) If pt remains NPO >7days of NPO status, provide TPN to meet at least 75% of estimated needs 3) Advance pt diet when medically feasible to a Renal Standard diet modified per WEAPONS ELECTRICAL ENGINEERING OFFICER recommendations Expected Outcomes/Goals: 1) Pt to receive nutrition support within 7 days of NPO status 2) Pt diet to advance 3) F/U in 2-3 days LULU RICHARD MD Jul 15, 2024 16:07
--- NOTE | 2024-07-15 20:40 | DVHPN2 ---
Progress Note - Dictate Date Seen: Jul 15, 2024 Has the PT tested + for MRSA If YES, has PT been informed?: No Medical Necessity Reason Pt with a Central, PICC or Fol: Yes The following are medically ne: Central Line Subjective Patient seen and examined at bedside. Sedated, intubated on mechanical ventilator. Overnight events reviewed vital signs Vital Sign Date Time Temp Pulse Resp B/P (MAP) Pulse Ox O2 Delivery O2 Flow Rate FiO2 07/15/24 19:45 98.1 71 15 116/54 (74) 98 208.6 07/15/24 18:31 30 07/15/24 18:00 Mechanical Ventilator+ Total Intake and Output 07/14/24 07/14/24 07/15/24 15:00 23:00 07:00 Intake Total 634.065 ml 276.830 ml 589.581 ml Balance 634.065 ml 276.830 ml 589.581 ml medications Current Medications Medications Dose Ordered Sig/Rey Route Start Time Stop Time Status Last Admin Dose Admin Vancomycin HCl 0 ml @ 0 mls/hr UD IV 07/08/24 17:00 Sodium Chloride 10 ml Q8HR IV 07/09/24 06:00 07/15/24 13:53 10 ML Vasopressin 20 units/Sodium Chloride 100 ml @ 9 mls/hr Q11H7M IV 07/09/24 13:15 07/14/24 08:47 9 MLS/HR Norepinephrine Bitartrate 32 mg/ Sodium Chloride 250 ml @ 0.938 mls/ hr Q24H IV 07/09/24 15:30 07/14/24 18:21 0.938 MLS/HR Phenylephrine HCl 80 mg/Sodium Chloride 250 ml @ 7.5 mls/hr Q24H IV 07/09/24 15:45 07/10/24 08:08 33.75 MLS/HR Diagnostic Test (Pha) 1 strip Q4HR 07/09/24 18:00 07/15/24 19:43 1 STRIP Epinephrine HCl 250 ml @ 7.5 mls/hr Q24H IV 07/09/24 17:00 07/10/24 05:30 7.5 MLS/HR Pantoprazole Sodium 40 mg DAILY IV 07/10/24 10:00 07/15/24 09:31 40 MG Fentanyl Citrate 250 ml @ 2.5 mls/hr Q24H IV 07/09/24 17:30 07/15/24 09:31 20 MLS/HR Hydrocortisone Sodium Succinate 100 mg Q8H IV 07/09/24 17:44 07/15/24 20:00 100 MG Propofol 100 ml @ 2.79 mls/hr Q24H IV 07/09/24 20:00 07/15/24 13:52 5.58 MLS/HR Dextrose 50 ml PRN PRN IV 07/10/24 17:45 07/11/24 09:44 50 ML Epoetin Justus-epbx 10,000 unit MWF SC 07/14/24 21:00 Meropenem 50 ml @ 17 mls/hr Q24H IV 07/13/24 22:00 07/14/24 22:17 17 MLS/HR Albumin Human 50 ml @ 100 mls/hr PRN PRN IV 07/13/24 08:30 Cancel Albumin Human 50 ml @ 50 mls/hr PRN PRN IV 07/13/24 08:20 Enteral Nutritional Formula 1,000 ml 30ML/HR GT 07/13/24 12:00 Dexmedetomidine HCl 400 mcg/ Dextrose 100 ml @ 4.73 mls/hr Q21H9M IV 07/15/24 20:00 objective Gen.: Patient lying in bed in medical ICU. Sedated, intubated on mechanical ventilator. Head: Normocephalic, atraumatic. Eyes: PERRLA. Ears: Normal external anatomy. Throat: Endotracheal tube and orogastric tube in place. Neck: Supple, trachea midline. Chest: Transmitted breath sounds bilaterally. Decreased air entry bilaterally. No wheezing. Bibasilar crackles. Cardiovascular: Positive S1, positive S2. Regular rate and rhythm. Abdomen: Positive bowel sounds in all 4 quadrants. Soft, nontender, nondistended. : Whiting in place. Normal external genitalia. Rectal: Deferred. Skin: Warm, dry. Intact. Extremities: 2+ radial pulses bilaterally. No lower extremity edema. Neuro: Sedated. laboratory and microbiology Laboratory Tests 07/15/24 03:53 Test 07/15/24 03:53 Range/Units Serum Glucose 100 74-106 mg/dL Assessment/Plan Impression: Acute hypoxic respiratory failure On mechanical ventilator Pulmonary edema Necrotizing fasciitis Septic shock Morbid obesity Events: Remains on vent support On AC mode; RR 16, VT 450, PEEP 8, FiO2 30% Patient underwent hemodialysis today. ABG reviewed, compensated CXR reviewed, demonstrates bilateral pleural effusions and pulmonary opacities similar to prior. Devices in place. Hemoglobin trending up, 9.3 g/dL - continue to monitor Platelet count now at 69 K Sedated on Propofol, Fentanyl Off Levophed, hemodynamically stable. Tube feeds for nutritional support Continue antibiotics Continue IV steroids WBC trending up, 22.2 K Wound care HD per Nephrology Monitor renal function Monitor electrolytes. Supplement as necessary. Nephrology recommendations appreciated Taper sedation as tolerated Plan for CPAP in the AM OK for Precedex Labs and imaging reviewed. Rest of plan as noted below. Plan: s/p intubation on mechanical ventilator. CXR image and report reviewed. Left mid and lower lung zone opacification which may represent pneumonia with possible small left-sided pleural effusion. Devices in place. On AC mode; RR 16, VT 450, PEEP 8, FiO2 30% Titrate FIO2 to keep O2 saturation above 90%. VAP bundle. Daily ABG and CXR while intubated Sedate for ventilator synchrony Continue antibiotics. F/u cultures. Continue IV steroids Pressors if necessary for hemodynamic support Titrate to keep MAP above 65 mmHg/SBP above 90 mmHg. Monitor renal function Monitor electrolytes. Supplement as necessary. Monitor ins and outs. Maintain euvolemia. GI prophylaxis. DVT prophylaxis. Prognosis: Poor given patient's multiple co-morbidities. Condition: Critical Rest of plan per hospitalist and other consultants. A total of 35 minutes of critical care time was spent reviewing the patient record, examining the patient, making a diagnostic and therapeutic plan, discussing this plan with the medical personnel, following up on diagnostic studies and following the patient for clinical stability excluding any and all procedures. At least 50% of this time was spent in direct, [id number] contact. Thank you Dr. Johnson, for allowing me to participate in this patient's care. Further recommendations will depend on the patient's clinical course. Please do not hesitate to contact me if you have any questions or concerns. This medical document was created using an electronic medical record system with [employer] system. Although these documentations are being carefully reviewed, there may still be some phonetic and typographical changes. The errors are purely typographical, due to imperfection on the software program, and do not reflect any compromise in the patient's medical care. Dietary Evaluation Review Comments: 1) If GI is accessible consider Nepro 1.8 @ 20 ml/hr with current rate of propofol on board 2) If pt remains NPO >7days of NPO status, provide TPN to meet at least 75% of estimated needs 3) Advance pt diet when medically feasible to a Renal Standard diet modified per B[employer]ING MACHINE OPERATOR VERTICAL recommendations Expected Outcomes/Goals: 1) Pt to receive nutrition support within 7 days of NPO status 2) Pt diet to advance 3) F/U in 2-3 days Plan discussed with: Other (JACEK Hopper) Critical Care Time(min): 35 EB DEJESUS MD Jul 15, 2024 20:40
[2024-07-15] MEDS: VANCOMYCIN 500mg/100mL 100 ML IV ONE (21:04)
--- NOTE | 2024-07-15 23:33 | DVHPN2 ---
Progress Note - Dictate Date Seen: Jul 15, 2024 Has the PT tested + for MRSA If YES, has PT been informed?: No Medical Necessity Reason Pt with a Central, PICC or Fol: Yes The following are medically ne: Central Line Subjective Patient was seen and evaluated in follow up in the ICU. Patient is intubated and sedated on ventilator. FiO2 30%. Patient is unresponsive to verbal stimuli or pain. Chest x-ray shows bilateral pleural effusions and pulmonary opacities similar to prior study. WBC 22.2, HGB 9.3, HCT 27.7, NA 133, K 5.2, CL 95, BUN 76, FORESTRY SUPERVISOR 4.78, AST 321, ALT 902. vital signs Vital Sign Date Time Temp Pulse Resp B/P (MAP) Pulse Ox O2 Delivery O2 Flow Rate FiO2 07/15/24 10:00 70 16 102/42 97 30 07/15/24 08:15 98.8 209.8 07/15/24 06:00 Mechanical Ventilator+ Total Intake and Output 07/14/24 07/14/24 07/15/24 15:00 23:00 07:00 Intake Total 634.065 ml 276.830 ml 589.581 ml Balance 634.065 ml 276.830 ml 589.581 ml medications Current Medications Medications Dose Ordered Sig/Rey Route Start Time Stop Time Status Last Admin Dose Admin Vancomycin HCl 0 ml @ 0 mls/hr UD IV 07/08/24 17:00 Sodium Chloride 10 ml Q8HR IV 07/09/24 06:00 07/15/24 06:33 10 ML Vasopressin 20 units/Sodium Chloride 100 ml @ 9 mls/hr Q11H7M IV 07/09/24 13:15 07/14/24 08:47 9 MLS/HR Norepinephrine Bitartrate 32 mg/ Sodium Chloride 250 ml @ 0.938 mls/ hr Q24H IV 07/09/24 15:30 07/14/24 18:21 0.938 MLS/HR Phenylephrine HCl 80 mg/Sodium Chloride 250 ml @ 7.5 mls/hr Q24H IV 07/09/24 15:45 07/10/24 08:08 33.75 MLS/HR Diagnostic Test (Pha) 1 strip Q4HR 07/09/24 18:00 07/15/24 09:39 1 STRIP Epinephrine HCl 250 ml @ 7.5 mls/hr Q24H IV 07/09/24 17:00 07/10/24 05:30 7.5 MLS/HR Pantoprazole Sodium 40 mg DAILY IV 07/10/24 10:00 07/15/24 09:31 40 MG Fentanyl Citrate 250 ml @ 2.5 mls/hr Q24H IV 07/09/24 17:30 07/15/24 09:31 20 MLS/HR Hydrocortisone Sodium Succinate 100 mg Q8H IV 07/09/24 17:44 07/15/24 09:31 100 MG Propofol 100 ml @ 2.79 mls/hr Q24H IV 07/09/24 20:00 07/14/24 18:47 5.58 MLS/HR Dextrose 50 ml PRN PRN IV 07/10/24 17:45 07/11/24 09:44 50 ML Dextrose 1,000 ml @ 30 mls/hr Q24H IV 07/12/24 09:00 07/14/24 11:20 30 MLS/HR Epoetin Justus-epbx 10,000 unit MWF SC 07/14/24 21:00 Meropenem 50 ml @ 17 mls/hr Q24H IV 07/13/24 22:00 07/14/24 22:17 17 MLS/HR Albumin Human 50 ml @ 100 mls/hr PRN PRN IV 07/13/24 08:30 Cancel Albumin Human 50 ml @ 50 mls/hr PRN PRN IV 07/13/24 08:20 Enteral Nutritional Formula 1,000 ml 30ML/HR GT 07/13/24 12:00 objective GENERAL: Intubated on ventilator. Morbidly obese. LUNGS: Decreased breath sounds. CARDIOVASCULAR: Heart sounds are good. ABDOMEN: Soft. EXT: Significant edema to BLE, more significant on RLE. SKIN: Ecchymosis to right upper thigh. laboratory and microbiology Laboratory Tests 07/15/24 03:53 Test 07/15/24 03:53 Range/Units Serum Glucose 100 74-106 mg/dL Problem List Hypotension secondary to septic shock. Coronary artery disease status post CABG in 2021. History of hypertension. Hyperlipidemia. Hyperkalemia. Acute anemia. Thrombocytopenia. Transaminitis. End-stage renal disease on hemodialysis. Renal cell carcinoma status post left nephrectomy. COPD. Asthma. Morbid obesity. Dilated cardiomyopathy. Assessment/Plan Continued all current supportive medical care. Dopamine drip. GI prophylactics. IV antibiotics as ordered. Vasopressors for hemodynamic support. Additional plan as per the hospital course. Critical care time of 45 minutes provided to include time spent evaluation of patient at bedside, when appropriate patient/family education for diagnosis, treatment plan, review of pertinent medical information and discussion of care with specialty providers and PCP. Mechanical ventilator parameters, treatment and adjustments have personally been reviewed by me and treatment plan by barrel charrer helper has also been reviewed. Dietary Evaluation Review Comments: 1) If GI is accessible consider Nepro 1.8 @ 20 ml/hr with current rate of propofol on board 2) If pt remains NPO >7days of NPO status, provide TPN to meet at least 75% of estimated needs 3) Advance pt diet when medically feasible to a Renal Standard diet modified per VETERINARY LABORATORY TECHNICIAN recommendations Expected Outcomes/Goals: 1) Pt to receive nutrition support within 7 days of NPO status 2) Pt diet to advance 3) F/U in 2-3 days Plan discussed with: Other FRIDA SIMMONS MD Jul 15, 2024 11:58
[2024-07-16] VITALS (110 sets, daily range): BP systolic 92–173; BP diastolic 39–77; PULSE 70–90; RESP 8–30; TEMP 97.2–100.2; O2SAT 93–100
[2024-07-16 03:49] LABS: Eosinophils # (auto) 0 10 ^3/uL (0-0.8); Hemoglobin 9.2 g/dL (13.5-17.5); Red Cell Distribution Width 16.2 % (11.8-14.3); White Blood Cell 17.1 10^3/uL (4.4-10.8)
[2024-07-16 03:52] LABS: Basophils # (auto) 0 10 ^3/uL (0-0.2); Basophils % (auto) 0.2 % (0.0-2.0); Hematocrit 27.2 % (41.0-53.0); Lymphocytes # (auto) 0.9 10 ^3/uL (0.4-5.4); Lymphocytes % (auto) 5.4 % (10.0-50.0); Mean Corpuscular Hemoglobin 35.4 pg (28.0-32.0); Mean Corpuscular Hgb Conc. 33.7 g/dL (32.0-36.0); Mean Corpuscular Volume 104.9 fL (80.0-100.0); Monocytes # (auto) 0.9 10 ^3/uL (0-1.3); Monocytes % (auto) 5.5 % (0.0-12.0); Neutrophils # (auto) 15.2 10 ^3/uL (1.6-8.6); Neutrophils % (auto) 88.9 % (37.0-80.0); Nucleated Red Blood Cells % 3.9 %; Platelet Count (auto) 52 10^3/uL (140-450)
[2024-07-16 04:00] LABS: Anion Gap 12 (5-15); Carbon Dioxide 26 mmol/L (20-31)
[2024-07-16 04:03] LABS: Calcium 6.4 mg/dL (8.7-10.4); Chloride 97 mmol/L (98-107); Sodium 135 mmol/L (136-145)
[2024-07-16 04:05] LABS: BUN/Creatinine Ratio 17.6 (10.0-20.0)
[2024-07-16 04:06] LABS: Magnesium 2.5 mg/dL (1.6-2.6)
[2024-07-16 04:21] LABS: Blood Urea Nitrogen 75 mg/dL (9-23); Glucose 163 mg/dL (74-106)
--- NOTE | 2024-07-16 06:14 | DVH ---
CHEST RADIOGRAPH Indication: vent Technique: Single frontal view of the chest was obtained Comparison: XY CHEST XRAY 1 VIEW on DOS: 07/15/24 FINDINGS: Lines and Tubes: Endotracheal tube terminates 1.9 cm above the quin. Status post median sternotomy. Enteric tube terminates in the stomach. Lungs: Mild bilateral airspace disease, unchanged. Pleura: Small bilateral pleural effusions, unchanged. No pneumothorax. Cardiomediastinal contours: Stable cardiomegaly. Bones: No acute osseous abnormality. IMPRESSION: 1. Endotracheal tube terminates 1.9 cm above the quin. 2. Stable mild bilateral airspace disease and bilateral pleural effusions.
[2024-07-16 07:36] LABS: Base Excess 0.2 mmol/L (-2.0-3.0)
[2024-07-16] MEDS: LACTULOSE 20Gm/30ML SOLN PO ONE ×2 (14:19→18:00)
[2024-07-16] MEDS: CALCIUM GLUC 1,000mg/50ml-NS 50 ML IV SCH (14:44)
--- NOTE | 2024-07-16 20:19 | DVHPN2 ---
Progress Note Date Seen: Jul 16, 2024 Has the PT tested + for MRSA If YES, has PT been informed?: No Medical Necessity Reason Pt with a Central, PICC or Fol: Yes The following are medically ne: Central Line Subjective Review of Systems: Deferred Objective vital signs Vital Sign Date Time Temp Pulse Resp B/P (MAP) Pulse Ox O2 Delivery O2 Flow Rate FiO2 07/16/24 19:00 160/60 07/16/24 19:00 97.9 73 11 100 208.2 07/16/24 18:00 Mechanical Ventilator+ 30 30 Total Intake and Output 07/15/24 07/15/24 07/16/24 15:00 23:00 07:00 Intake Total 238.393 ml 587.078 ml 346.66 ml Output Total 0 ml Balance 238.393 ml 587.078 ml 346.66 ml medications Current Medications Medications Dose Ordered Sig/Rey Route Start Time Stop Time Status Last Admin Dose Admin Vancomycin HCl 0 ml @ 0 mls/hr UD IV 07/08/24 17:00 Sodium Chloride 10 ml Q8HR IV 07/09/24 06:00 07/16/24 14:19 10 ML Vasopressin 20 units/Sodium Chloride 100 ml @ 9 mls/hr Q11H7M IV 07/09/24 13:15 07/14/24 08:47 9 MLS/HR Norepinephrine Bitartrate 32 mg/ Sodium Chloride 250 ml @ 0.938 mls/ hr Q24H IV 07/09/24 15:30 07/14/24 18:21 0.938 MLS/HR Phenylephrine HCl 80 mg/Sodium Chloride 250 ml @ 7.5 mls/hr Q24H IV 07/09/24 15:45 07/10/24 08:08 33.75 MLS/HR Diagnostic Test (Pha) 1 strip Q4HR 07/09/24 18:00 07/16/24 17:43 1 STRIP Epinephrine HCl 250 ml @ 7.5 mls/hr Q24H IV 07/09/24 17:00 07/10/24 05:30 7.5 MLS/HR Pantoprazole Sodium 40 mg DAILY IV 07/10/24 10:00 07/16/24 10:35 40 MG Fentanyl Citrate 250 ml @ 2.5 mls/hr Q24H IV 07/09/24 17:30 07/15/24 21:01 15 MLS/HR Hydrocortisone Sodium Succinate 100 mg Q8H IV 07/09/24 17:44 07/16/24 17:43 100 MG Dextrose 50 ml PRN PRN IV 07/10/24 17:45 07/11/24 09:44 50 ML Epoetin Justus-epbx 10,000 unit MWF SC 07/14/24 21:00 07/16/24 11:07 10,000 UNIT Meropenem 50 ml @ 17 mls/hr Q24H IV 07/13/24 22:00 07/15/24 21:53 17 MLS/HR Albumin Human 50 ml @ 100 mls/hr PRN PRN IV 07/13/24 08:30 Cancel Albumin Human 50 ml @ 50 mls/hr PRN PRN IV 07/13/24 08:20 Enteral Nutritional Formula 1,000 ml 30ML/HR GT 07/13/24 12:00 Dexmedetomidine HCl 400 mcg/ Dextrose 100 ml @ 4.73 mls/hr Q21H9M IV 07/15/24 20:00 07/16/24 15:25 4.73 MLS/HR Lactulose 30 ml DAILY PO 07/17/24 10:00 Metoclopramide HCl 5 mg Q8HR IV 07/16/24 22:00 Examination: MSK:Abnormal, SKIN:Abnormal, NEURO:Abnormal laboratory and microbiology Laboratory Tests 07/16/24 03:13 Test 07/16/24 03:13 Range/Units Serum Glucose 163 H 74-106 mg/dL Microbiology Date/Time Source Procedure Growth Status 07/09/24 19:55 Trachea Gram Stain - Final Complete 07/09/24 19:55 Trachea Respiratory Culture - Final Complete 07/08/24 18:00 Blood Blood Culture - Final Escherichia coli - ESBL Complete Problem List/Assessment/Plan Problem List/Assessment/Plan ESRD on HD hyperkalemia uremic acidosis / lactic acidosis septic shock with gram-negative anabella bacteremia lower extremity wound anemia hypoglycemia recs Hemodialysis tomorrow Plan discussed with: Spouse, Other My Orders My Orders Orders - FAYE KAUR MD Procedure Category Date Status Time Hemodialysis Orders ORDERS 07/17/24 Transmitted 04:00 Dietary Evaluation Review Comments: 1) If GI is accessible consider Nepro 1.8 @ 20 ml/hr with current rate of propofol on board 2) If pt remains NPO >7days of NPO status, provide TPN to meet at least 75% of estimated needs 3) Advance pt diet when medically feasible to a Renal Standard diet modified per BACKROOM ASSOCIATE recommendations Expected Outcomes/Goals: 1) Pt to receive nutrition support within 7 days of NPO status 2) Pt diet to advance 3) F/U in 2-3 days FAYE KAUR MD Jul 16, 2024 20:19
[2024-07-16] MEDS: PROPOFOL 100 ML IV SCH (21:00)
[2024-07-16] MEDS: METOCLOPRAMIDE HCL 5MG/ml INJ 2ml VIAL IV SCH (21:51)
--- NOTE | 2024-07-16 21:58 | DVHPN2 ---
Progress Note - Dictate Date Seen: Jul 16, 2024 Has the PT tested + for MRSA If YES, has PT been informed?: No Medical Necessity Reason Pt with a Central, PICC or Fol: Yes The following are medically ne: Central Line Subjective Patient was seen and evaluated in follow up in the ICU. Patient is intubated and sedated on ventilator. FiO2 was increased to 40%. Patient is planned to undergo CPAP trial. WBC 17.1, HGB 9.2, HT 27.2, NA 135, CL 97, BUN 75, TRUCK LOADER OVERHEAD CRANE 4.27. Chest x-ray shows stable mild bilateral airspace disease and bilateral pleural effusions. vital signs Vital Sign Date Time Temp Pulse Resp B/P (MAP) Pulse Ox O2 Delivery O2 Flow Rate FiO2 07/16/24 10:04 83 12 126/52 (76) 93 40 07/16/24 08:00 Mechanical Ventilator+ 07/16/24 06:45 99.1 210.4 Total Intake and Output 07/15/24 07/15/24 07/16/24 15:00 23:00 07:00 Intake Total 238.393 ml 587.078 ml 346.66 ml Output Total 0 ml Balance 238.393 ml 587.078 ml 346.66 ml medications Current Medications Medications Dose Ordered Sig/Rey Route Start Time Stop Time Status Last Admin Dose Admin Vancomycin HCl 0 ml @ 0 mls/hr UD IV 07/08/24 17:00 Sodium Chloride 10 ml Q8HR IV 07/09/24 06:00 07/16/24 05:44 10 ML Vasopressin 20 units/Sodium Chloride 100 ml @ 9 mls/hr Q11H7M IV 07/09/24 13:15 07/14/24 08:47 9 MLS/HR Norepinephrine Bitartrate 32 mg/ Sodium Chloride 250 ml @ 0.938 mls/ hr Q24H IV 07/09/24 15:30 07/14/24 18:21 0.938 MLS/HR Phenylephrine HCl 80 mg/Sodium Chloride 250 ml @ 7.5 mls/hr Q24H IV 07/09/24 15:45 07/10/24 08:08 33.75 MLS/HR Diagnostic Test (Pha) 1 strip Q4HR 07/09/24 18:00 07/16/24 10:00 1 STRIP Epinephrine HCl 250 ml @ 7.5 mls/hr Q24H IV 07/09/24 17:00 07/10/24 05:30 7.5 MLS/HR Pantoprazole Sodium 40 mg DAILY IV 07/10/24 10:00 07/16/24 10:35 40 MG Fentanyl Citrate 250 ml @ 2.5 mls/hr Q24H IV 07/09/24 17:30 07/15/24 21:01 15 MLS/HR Hydrocortisone Sodium Succinate 100 mg Q8H IV 07/09/24 17:44 07/16/24 10:35 100 MG Propofol 100 ml @ 2.79 mls/hr Q24H IV 07/09/24 20:00 07/15/24 23:53 5.58 MLS/HR Dextrose 50 ml PRN PRN IV 07/10/24 17:45 07/11/24 09:44 50 ML Epoetin Justus-epbx 10,000 unit MWF SC 07/14/24 21:00 07/16/24 11:07 10,000 UNIT Meropenem 50 ml @ 17 mls/hr Q24H IV 07/13/24 22:00 07/15/24 21:53 17 MLS/HR Albumin Human 50 ml @ 100 mls/hr PRN PRN IV 07/13/24 08:30 Cancel Albumin Human 50 ml @ 50 mls/hr PRN PRN IV 07/13/24 08:20 Enteral Nutritional Formula 1,000 ml 30ML/HR GT 07/13/24 12:00 Dexmedetomidine HCl 400 mcg/ Dextrose 100 ml @ 4.73 mls/hr Q21H9M IV 07/15/24 20:00 objective GENERAL: Intubated on ventilator. Morbidly obese. LUNGS: Decreased breath sounds. CARDIOVASCULAR: Heart sounds are good. ABDOMEN: Soft. EXT: Significant edema to BLE, more significant on RLE. SKIN: Ecchymosis to right upper thigh. laboratory and microbiology Laboratory Tests 07/16/24 03:13 Test 07/16/24 03:13 Range/Units Serum Glucose 163 H 74-106 mg/dL Problem List Hypotension secondary to septic shock. Coronary artery disease status post CABG in 2021. History of hypertension. Hyperlipidemia. Hyperkalemia. Acute anemia. Thrombocytopenia. Transaminitis. End-stage renal disease on hemodialysis. Renal cell carcinoma status post left nephrectomy. COPD. Asthma. Morbid obesity. Dilated cardiomyopathy. Assessment/Plan Continued all current supportive medical care. Dopamine drip. GI prophylactics. IV antibiotics as ordered. Vasopressors for hemodynamic support. Additional plan as per the hospital course. Critical care time of 45 minutes provided to include time spent evaluation of patient at bedside, when appropriate patient/family education for diagnosis, treatment plan, review of pertinent medical information and discussion of care with specialty providers and PCP. Mechanical ventilator parameters, treatment and adjustments have personally been reviewed by me and treatment plan by stripping shovel oiler has also been reviewed. Dietary Evaluation Review Comments: 1) If GI is accessible consider Nepro 1.8 @ 20 ml/hr with current rate of propofol on board 2) If pt remains NPO >7days of NPO status, provide TPN to meet at least 75% of estimated needs 3) Advance pt diet when medically feasible to a Renal Standard diet modified per SHOP REPAIRER recommendations Expected Outcomes/Goals: 1) Pt to receive nutrition support within 7 days of NPO status 2) Pt diet to advance 3) F/U in 2-3 days Plan discussed with: Other FRIDA SIMMONS MD Jul 16, 2024 11:31
--- NOTE | 2024-07-16 23:37 | DVHPN2 ---
Progress Note - Dictate Date Seen: Jul 16, 2024 Has the PT tested + for MRSA If YES, has PT been informed?: No Medical Necessity Reason Pt with a Central, PICC or Fol: Yes The following are medically ne: Central Line Subjective Patient seen and examined at bedside. intubated on mechanical ventilator. Overnight events reviewed vital signs Vital Sign Date Time Temp Pulse Resp B/P (MAP) Pulse Ox O2 Delivery O2 Flow Rate FiO2 07/16/24 23:00 98.2 75 20 129/46 (73) 99 208.8 139/58 (85) 07/16/24 22:07 40 07/16/24 21:49 Mechanical Ventilator+ Total Intake and Output 07/15/24 07/15/24 07/16/24 15:00 23:00 07:00 Intake Total 238.393 ml 587.078 ml 346.66 ml Output Total 0 ml Balance 238.393 ml 587.078 ml 346.66 ml medications Current Medications Medications Dose Ordered Sig/Rey Route Start Time Stop Time Status Last Admin Dose Admin Vancomycin HCl 0 ml @ 0 mls/hr UD IV 07/08/24 17:00 Sodium Chloride 10 ml Q8HR IV 07/09/24 06:00 07/16/24 21:52 10 ML Vasopressin 20 units/Sodium Chloride 100 ml @ 9 mls/hr Q11H7M IV 07/09/24 13:15 07/14/24 08:47 9 MLS/HR Norepinephrine Bitartrate 32 mg/ Sodium Chloride 250 ml @ 0.938 mls/ hr Q24H IV 07/09/24 15:30 07/14/24 18:21 0.938 MLS/HR Phenylephrine HCl 80 mg/Sodium Chloride 250 ml @ 7.5 mls/hr Q24H IV 07/09/24 15:45 07/10/24 08:08 33.75 MLS/HR Diagnostic Test (Pha) 1 strip Q4HR 07/09/24 18:00 07/16/24 21:52 1 STRIP Epinephrine HCl 250 ml @ 7.5 mls/hr Q24H IV 07/09/24 17:00 07/10/24 05:30 7.5 MLS/HR Pantoprazole Sodium 40 mg DAILY IV 07/10/24 10:00 07/16/24 10:35 40 MG Fentanyl Citrate 250 ml @ 2.5 mls/hr Q24H IV 07/09/24 17:30 07/15/24 21:01 15 MLS/HR Hydrocortisone Sodium Succinate 100 mg Q8H IV 07/09/24 17:44 07/16/24 17:43 100 MG Dextrose 50 ml PRN PRN IV 07/10/24 17:45 07/11/24 09:44 50 ML Epoetin Justus-epbx 10,000 unit MWF SC 07/14/24 21:00 07/16/24 11:07 10,000 UNIT Meropenem 50 ml @ 17 mls/hr Q24H IV 07/13/24 22:00 07/16/24 21:51 17 MLS/HR Albumin Human 50 ml @ 100 mls/hr PRN PRN IV 07/13/24 08:30 Cancel Albumin Human 50 ml @ 50 mls/hr PRN PRN IV 07/13/24 08:20 Enteral Nutritional Formula 1,000 ml 30ML/HR GT 07/13/24 12:00 Dexmedetomidine HCl 400 mcg/ Dextrose 100 ml @ 4.73 mls/hr Q21H9M IV 07/15/24 20:00 07/16/24 15:25 4.73 MLS/HR Lactulose 30 ml DAILY PO 07/17/24 10:00 Metoclopramide HCl 5 mg Q8HR IV 07/16/24 22:00 07/16/24 21:51 5 MG Propofol 100 ml @ 2.82 mls/hr Q24H IV 07/16/24 21:00 objective Gen.: Patient lying in bed in medical ICU. Intubated on mechanical ventilator. Head: Normocephalic, atraumatic. Eyes: PERRLA. Ears: Normal external anatomy. Throat: Endotracheal tube and orogastric tube in place. Neck: Supple, trachea midline. Chest: Transmitted breath sounds bilaterally. Decreased air entry bilaterally. No wheezing. Bibasilar crackles. Cardiovascular: Positive S1, positive S2. Regular rate and rhythm. Abdomen: Positive bowel sounds in all 4 quadrants. Soft, nontender, nondistended. : Whiting in place. Normal external genitalia. Rectal: Deferred. Skin: Warm, dry. Intact. Extremities: 2+ radial pulses bilaterally. No lower extremity edema. Neuro: Off sedation laboratory and microbiology Laboratory Tests 07/16/24 03:13 Test 07/16/24 03:13 Range/Units Serum Glucose 163 H 74-106 mg/dL Assessment/Plan Impression: Acute hypoxic respiratory failure On mechanical ventilator Pulmonary edema Necrotizing fasciitis Septic shock Morbid obesity Events: Remains on vent support On AC mode; RR 16, VT 450, PEEP 8, FiO2 30% Patient underwent hemodialysis yesterday. ABG reviewed, alkalemia CXR reviewed, demonstrates Stable mild bilateral airspace disease and bilateral pleural effusions. Devices in place. Hemoglobin stable - continue to monitor Platelet count trending down - 52 K Off sedation Off Levophed, hemodynamically stable. Tube feeds for nutritional support Continue antibiotics Continue IV steroids Monitor WBC Wound care HD per Nephrology Monitor renal function Monitor electrolytes. Supplement as necessary. Nephrology recommendations appreciated Taper sedation as tolerated Plan for CPAP in the AM - PS 12, PEEP 8, FiO2 30% OK for Precedex if necessary Labs and imaging reviewed. Rest of plan as noted below. Plan: s/p intubation on mechanical ventilator. CXR image and report reviewed. Left mid and lower lung zone opacification which may represent pneumonia with possible small left-sided pleural effusion. Devices in place. On AC mode; RR 16, VT 450, PEEP 8, FiO2 30% Titrate FIO2 to keep O2 saturation above 90%. VAP bundle. Daily ABG and CXR while intubated Sedate for ventilator synchrony Continue antibiotics. F/u cultures. Continue IV steroids Pressors if necessary for hemodynamic support Titrate to keep MAP above 65 mmHg/SBP above 90 mmHg. Monitor renal function Monitor electrolytes. Supplement as necessary. Monitor ins and outs. Maintain euvolemia. GI prophylaxis. DVT prophylaxis. Prognosis: Poor given patient's multiple co-morbidities. Condition: Critical Rest of plan per hospitalist and other consultants. A total of 35 minutes of critical care time was spent reviewing the patient record, examining the patient, making a diagnostic and therapeutic plan, discussing this plan with the medical personnel, following up on diagnostic studies and following the patient for clinical stability excluding any and all procedures. At least 50% of this time was spent in direct, [id number] contact. Thank you Dr. Johnson, for allowing me to participate in this patient's care. Further recommendations will depend on the patient's clinical course. Please do not hesitate to contact me if you have any questions or concerns. This medical document was created using an electronic medical record system with Dragon computerized dictation system. Although these documentations are being carefully reviewed, there may still be some phonetic and typographical changes. The errors are purely typographical, due to imperfection on the software program, and do not reflect any compromise in the patient's medical care. Dietary Evaluation Review Comments: 1) If GI is accessible consider Nepro 1.8 @ 20 ml/hr with current rate of propofol on board 2) If pt remains NPO >7days of NPO status, provide TPN to meet at least 75% of estimated needs 3) Advance pt diet when medically feasible to a Renal Standard diet modified per OCEAN EXPORT AGENT recommendations Expected Outcomes/Goals: 1) Pt to receive nutrition support within 7 days of NPO status 2) Pt diet to advance 3) F/U in 2-3 days Plan discussed with: Other (JACEK Hopper) Critical Care Time(min): 35 EB DEJESUS MD Jul 16, 2024 23:37
[2024-07-17] VITALS (115 sets, daily range): BP systolic 79–174; BP diastolic 30–71; PULSE 64–93; RESP 9–29; TEMP 80.1–100.1; O2SAT 96–100
[2024-07-17 04:43] LABS: Anion Gap 15 (5-15); Carbon Dioxide 22 mmol/L (20-31); Total Protein 5.8 g/dL (5.7-8.2)
[2024-07-17 04:44] LABS: Basophils # (auto) 0 10 ^3/uL (0-0.2); Eosinophils # (auto) 0 10 ^3/uL (0-0.8); Lymphocytes # (auto) 0.6 10 ^3/uL (0.4-5.4); Nucleated Red Blood Cells % 1.7 %; Red Blood Cells 2.76 10^6/uL (4.5-5.90); White Blood Cell 14.7 10^3/uL (4.4-10.8)
[2024-07-17 04:50] LABS: Basophils % (auto) 0.2 % (0.0-2.0); Hematocrit 29.1 % (41.0-53.0); Hemoglobin 9.7 g/dL (13.5-17.5); Mean Corpuscular Hemoglobin 35.2 pg (28.0-32.0); Mean Corpuscular Hgb Conc. 33.3 g/dL (32.0-36.0); Mean Corpuscular Volume 105.4 fL (80.0-100.0); Monocytes # (auto) 0.1 10 ^3/uL (0-1.3); Monocytes % (auto) 0.5 % (0.0-12.0); Neutrophils % (auto) 95.3 % (37.0-80.0); Platelet Count (auto) 56 10^3/uL (140-450); Red Cell Distribution Width 16.5 % (11.8-14.3)
[2024-07-17 04:51] LABS: Chloride 96 mmol/L (98-107); Potassium 5.4 mmol/L (3.5-5.1); Sodium 133 mmol/L (136-145)
[2024-07-17 04:52] LABS: Glucose 179 mg/dL (74-106)
[2024-07-17 04:55] LABS: Alanine Aminotransferase 448 U/L (7-40); Albumin 3.1 g/dL (3.2-4.8); Alkaline Phosphatase 147 U/L (46-116); Aspartate Aminotransferase 207 U/L (13-40); BUN/Creatinine Ratio 21.1 (10.0-20.0); Bilirubin, Total 10.4 mg/dL (0.2-1.0); Magnesium 2.7 mg/dL (1.6-2.6)
[2024-07-17 04:56] LABS: Blood Urea Nitrogen 115 mg/dL (9-23)
[2024-07-17 04:57] LABS: Calcium 5.8 mg/dL (8.7-10.4)
--- NOTE | 2024-07-17 05:18 | DVH ---
CHEST RADIOGRAPH Indication: vent Technique: Single frontal view of the chest was obtained COMPARISON: XY CHEST PORTABLE on DOS: 07/16/24, XY CHEST XRAY 1 VIEW on DOS: 07/15/24, XY CHEST PORTABL E on DOS: 07/15/24, XY CHEST PORTABLE on DOS: 07/14/24, XY CHEST PORTABLE on DOS: 07/13/24 FINDINGS: Lines and Tubes: Median sternotomy. Endotracheal tube and enteric catheter in satisfactory position. Lungs: Congestion. Pleura: Small left pleural effusion. No pneumothorax. Cardiomediastinal contours: Cardiomegaly Bones: Unremarkable IMPRESSION: Lines and tubes in satisfactory position. No significant interval change.
[2024-07-17] MEDS: ALBUMIN 25% 50 ML IV PRN (06:45)
--- NOTE | 2024-07-17 08:16 | DVHPN2 ---
Progress Note Date Seen: Jul 17, 2024 Has the PT tested + for MRSA If YES, has PT been informed?: No Medical Necessity Reason Pt with a Central, PICC or Fol: Yes The following are medically ne: Central Line Subjective Patient reports: Other Review of Systems: Deferred Objective vital signs Vital Sign Date Time Temp Pulse Resp B/P (MAP) Pulse Ox O2 Delivery O2 Flow Rate FiO2 07/17/24 08:00 74 20 98 Mechanical Ventilator+ 30 30 07/17/24 07:45 97.7 92/53 (66) 207.9 Total Intake and Output 07/16/24 07/16/24 07/17/24 15:00 23:00 07:00 Intake Total 54.5 ml 183.615 ml 98.08 ml Output Total 0 ml 0 ml Balance 54.5 ml 183.615 ml 98.08 ml medications Current Medications Medications Dose Ordered Sig/Rey Route Start Time Stop Time Status Last Admin Dose Admin Vancomycin HCl 0 ml @ 0 mls/hr UD IV 07/08/24 17:00 Sodium Chloride 10 ml Q8HR IV 07/09/24 06:00 07/17/24 07:50 10 ML Vasopressin 20 units/Sodium Chloride 100 ml @ 9 mls/hr Q11H7M IV 07/09/24 13:15 07/14/24 08:47 9 MLS/HR Norepinephrine Bitartrate 32 mg/ Sodium Chloride 250 ml @ 0.938 mls/ hr Q24H IV 07/09/24 15:30 07/14/24 18:21 0.938 MLS/HR Phenylephrine HCl 80 mg/Sodium Chloride 250 ml @ 7.5 mls/hr Q24H IV 07/09/24 15:45 07/10/24 08:08 33.75 MLS/HR Diagnostic Test (Pha) 1 strip Q4HR 07/09/24 18:00 07/17/24 05:15 1 STRIP Epinephrine HCl 250 ml @ 7.5 mls/hr Q24H IV 07/09/24 17:00 07/10/24 05:30 7.5 MLS/HR Pantoprazole Sodium 40 mg DAILY IV 07/10/24 10:00 07/16/24 10:35 40 MG Fentanyl Citrate 250 ml @ 2.5 mls/hr Q24H IV 07/09/24 17:30 07/15/24 21:01 15 MLS/HR Hydrocortisone Sodium Succinate 100 mg Q8H IV 07/09/24 17:44 07/17/24 03:27 100 MG Dextrose 50 ml PRN PRN IV 07/10/24 17:45 07/11/24 09:44 50 ML Epoetin Justus-epbx 10,000 unit MWF SC 07/14/24 21:00 07/16/24 11:07 10,000 UNIT Meropenem 50 ml @ 17 mls/hr Q24H IV 07/13/24 22:00 07/16/24 21:51 17 MLS/HR Albumin Human 50 ml @ 100 mls/hr PRN PRN IV 07/13/24 08:30 Cancel Albumin Human 50 ml @ 50 mls/hr PRN PRN IV 07/13/24 08:20 07/17/24 06:46 50 MLS/HR Enteral Nutritional Formula 1,000 ml 30ML/HR GT 07/13/24 12:00 Dexmedetomidine HCl 400 mcg/ Dextrose 100 ml @ 4.73 mls/hr Q21H9M IV 07/15/24 20:00 07/16/24 15:25 4.73 MLS/HR Lactulose 30 ml DAILY PO 07/17/24 10:00 Metoclopramide HCl 5 mg Q8HR IV 07/16/24 22:00 07/17/24 05:15 5 MG Propofol 100 ml @ 2.82 mls/hr Q24H IV 07/16/24 21:00 Examination: GENERAL:Abnormal, MSK:Abnormal, SKIN:Abnormal, NEURO:Abnormal laboratory and microbiology Laboratory Tests 07/17/24 03:20 Test 07/17/24 03:20 Range/Units Serum Glucose 179 H 74-106 mg/dL Microbiology Date/Time Source Procedure Growth Status 07/09/24 19:55 Trachea Gram Stain - Final Complete 07/09/24 19:55 Trachea Respiratory Culture - Final Complete 07/08/24 18:00 Blood Blood Culture - Final Escherichia coli - ESBL Complete Problem List/Assessment/Plan Problem List/Assessment/Plan ESRD on HD hyperkalemia uremic acidosis / lactic acidosis septic shock with gram-negative anabella bacteremia lower extremity wound anemia hypoglycemia recs Hemodialysis today uf as tolerated Plan discussed with: Spouse, Other My Orders My Orders Orders - FAYE KAUR MD Procedure Category Date Status Time Hemodialysis Orders ORDERS 07/17/24 Transmitted 04:00 Dietary Evaluation Review Comments: 1) If GI is accessible consider Nepro 1.8 @ 20 ml/hr with current rate of propofol on board 2) If pt remains NPO >7days of NPO status, provide TPN to meet at least 75% of estimated needs 3) Advance pt diet when medically feasible to a Renal Standard diet modified per EXECUTIVE VICE PRESIDENT recommendations Expected Outcomes/Goals: 1) Pt to receive nutrition support within 7 days of NPO status 2) Pt diet to advance 3) F/U in 2-3 days FAYE KAUR MD Jul 17, 2024 08:16
[2024-07-17] MEDS: LACTULOSE 20Gm/30ML SOLN PO SCH (08:40)
[2024-07-17 09:37] LABS: Base Excess 2.8 mmol/L (-2.0-3.0)
--- NOTE | 2024-07-17 11:10 | DVHPN2 ---
Subjective Intubated and sedated on C-PAP now Had HD this morning Off pressors Reviewed: Care Plan, H&P, Labs, Medications Changes from previous H/P or p: Changes General: Per HPI Eyes: No Pain, No Vision change, No Conjunctivae inflammation, No Eyelid inflammation, No Other, No Redness ENT: No Ear pain, No Ear discharge, No Nose pain, No Nose discharge, No Nose congestion, No Mouth pain, No Mouth swelling, No Throat pain, No Throat swelling, No Other Cardiovascular: Chest Pain Respiratory: Cough Gastrointestinal: No Nausea, No Vomiting, No Abdominal Pain, No Diarrhea, No Constipation, No Melena, No Hematochezia, No Other Genitourinary: No Dysuria, No Frequency, No Incontinence, No Hematuria, No Retention, No Other Musculoskeletal: other, leg pain Skin: Other Objective Vitals Vital Signs Date Time Temp Pulse Resp B/P (MAP) Pulse Ox O2 Delivery O2 Flow Rate FiO2 07/17/24 10:30 97.7 72 16 107/48 (67) 98 207.9 07/17/24 10:10 30 07/17/24 09:54 Mechanical Ventilator+ Intake/Output Intake and Output 07/17/24 07:00 Intake Total 336.195 ml Output Total 0 ml Balance 336.195 ml IV Total 336.195 ml Tube Feeding 0 ml Stool Total 0 ml General Appearance: Other (intubated and sedated) HEENT: PERRLA Lungs: Other (Rhonchi and crackles) Cardiovascular: Regular rate, Normal S1, Normal S2 Abdomen: Normal bowel sounds, Soft, No tenderness Musculoskeletal: Other (No motor movement) Neuro: Other (Unable to assess) Skin: Wounds (See nurse notes and pictures) Psych/Mental Status: Other (Unable to assess) Medications Current Medications Medications Dose Ordered Sig/Rey Route Start Time Stop Time Status Last Admin Dose Admin Vancomycin HCl 0 ml @ 0 mls/hr UD IV 07/08/24 17:00 Sodium Chloride 10 ml Q8HR IV 07/09/24 06:00 07/17/24 07:50 10 ML Vasopressin 20 units/Sodium Chloride 100 ml @ 9 mls/hr Q11H7M IV 07/09/24 13:15 07/14/24 08:47 9 MLS/HR Norepinephrine Bitartrate 32 mg/ Sodium Chloride 250 ml @ 0.938 mls/ hr Q24H IV 07/09/24 15:30 07/17/24 08:56 0.938 MLS/HR Phenylephrine HCl 80 mg/Sodium Chloride 250 ml @ 7.5 mls/hr Q24H IV 07/09/24 15:45 07/10/24 08:08 33.75 MLS/HR Diagnostic Test (Pha) 1 strip Q4HR 07/09/24 18:00 07/17/24 10:00 1 STRIP Epinephrine HCl 250 ml @ 7.5 mls/hr Q24H IV 07/09/24 17:00 07/10/24 05:30 7.5 MLS/HR Pantoprazole Sodium 40 mg DAILY IV 07/10/24 10:00 07/17/24 08:40 40 MG Fentanyl Citrate 250 ml @ 2.5 mls/hr Q24H IV 07/09/24 17:30 07/15/24 21:01 15 MLS/HR Hydrocortisone Sodium Succinate 100 mg Q8H IV 07/09/24 17:44 07/17/24 08:41 100 MG Dextrose 50 ml PRN PRN IV 07/10/24 17:45 07/11/24 09:44 50 ML Epoetin Justus-epbx 10,000 unit MWF SC 07/14/24 21:00 07/16/24 11:07 10,000 UNIT Meropenem 50 ml @ 17 mls/hr Q24H IV 07/13/24 22:00 07/16/24 21:51 17 MLS/HR Albumin Human 50 ml @ 100 mls/hr PRN PRN IV 07/13/24 08:30 Cancel Albumin Human 50 ml @ 50 mls/hr PRN PRN IV 07/13/24 08:20 07/17/24 06:46 50 MLS/HR Enteral Nutritional Formula 1,000 ml 30ML/HR GT 07/13/24 12:00 Dexmedetomidine HCl 400 mcg/ Dextrose 100 ml @ 4.73 mls/hr Q21H9M IV 07/15/24 20:00 07/17/24 08:56 9.46 MLS/HR Lactulose 30 ml DAILY PO 07/17/24 10:00 07/17/24 08:40 30 ML Metoclopramide HCl 5 mg Q8HR IV 07/16/24 22:00 07/17/24 05:15 5 MG Propofol 100 ml @ 2.82 mls/hr Q24H IV 07/16/24 21:00 Laboratory Results Laboratory Tests 07/17/24 03:20 Chemistry Test 07/17/24 03:20 Albumin 3.1 g/dL (3.2-4.8) L Calcium Level 5.8 mg/dL (8.7-10.4) *L Magnesium Level 2.7 mg/dL (1.6-2.6) H Total Protein 5.8 g/dL (5.7-8.2) LFT Test 07/17/24 03:20 Alanine Aminotransferase (ALT) 448 U/L (7-40) H Alkaline Phosphatase 147 U/L (46-116) H Aspartate Amino Transferase (AST) 207 U/L (13-40) H Total Bilirubin 10.4 mg/dL (0.2-1.0) H Blood Gas Results Test 07/17/24 09:26 Arterial Blood pH 7.553 (7.350-7.450) FiO2 % 30.0 Microbiology Microbiology Date/Time Source Procedure Growth Status 07/09/24 19:55 Trachea Gram Stain - Final Complete 07/09/24 19:55 Trachea Respiratory Culture - Final Complete 07/08/24 18:00 Blood Blood Culture - Final Escherichia coli - ESBL Complete Assessment/Plan Assessment/Plan Severe sepsis with septic shock due to bacteremia with E. coli ESBL Bacteremia with E. coli ESBL Right leg infection / cellulitis: Better Metabolic acidosis: Better with HD ESRD on HD h/o kidney CA s/p nephrectomy Hyperkalemia: resolved Thrombocytopenia Coagulopathy LLL atelectasis and effusion CAD Mixed hyperlipidemia DM2 Obesity Hypoglycemia PLAN: 07/14/2024: Continue IV antibiotics: Meropenem and Vanco Vasopressors prn Tube feeding D%W for hypoglycemia, DC once tolerating feeding IV hydrocortisone Taper sedation as tolerated HD per nephrology Vascular surgery (Dr. Mcbride) is following ID consult 07/15/24: HD per nephrology Taper sedation as tolerated Taper down Levophed as tolerated Tube feeding DC IV fluids IV antibiotics Monitor closely 07/17/24: Hypocalcemia: Replace Ca++ IV Hypoalbuminemia: Albumin IV ESRD: HD per nephrology Sepsis: IV antibiotics Resp failure: C-PAP Constipation: Lactulose Tube feeding Thrombocytopenia: Transaminitis: Better Discussed with family at the bedside Plan discussed with: Daughter, Other My Orders Orders - DG AQUINO MD Procedure Category Date Status Time Lactulose Oral PHA 07/17/24 In Process 10:00 Metoclopramide PHA 07/16/24 In Process Injection (Reglan 22:00 Chest Portable XY 07/17/24 Resulted 06:00 Abg W/ Co-Ox RT 07/17/24 Logged 06:00 Date of Service: Jul 17, 2024 Billing Provider: DG AQUINO MD Common Visit Codes: NOT BILLABLE DG AQUINO MD Jul 17, 2024 11:10
[2024-07-17] MEDS ORDERED: ALBUMIN 25% 100 ML IV SCH (11:15)
[2024-07-17] MEDS: CALCIUM GLUC 1,000mg/50ml-NS 50 ML IV SCH (11:21)
[2024-07-17] MEDS: ALBUMIN 25% 100 ML IV SCH (12:42)
--- NOTE | 2024-07-17 15:19 | DVHPN2 ---
Progress Note - Dictate Date Seen: Jul 17, 2024 Has the PT tested + for MRSA If YES, has PT been informed?: No Medical Necessity Reason Pt with a Central, PICC or Fol: Yes The following are medically ne: Central Line Subjective Patient was seen and evaluated in follow up in the ICU. Patient is intubated and sedated on ventilator. FiO2 30%. Patient is off pressors. Patient opens eyes and nods head, however does not track or follow simple commands. CPAP trial was terminated yesterday due to increased WOB. WBC 14.7, HGB 9.7, HCT 29.1, NA 133, K 5.4, CL 96, BUN 115, RN HEMATOLOGY 5.44, CA 5.8, AST 207, ALT 448. vital signs Vital Sign Date Time Temp Pulse Resp B/P (MAP) Pulse Ox O2 Delivery O2 Flow Rate FiO2 07/17/24 10:30 97.7 72 16 107/48 (67) 98 207.9 07/17/24 10:10 30 07/17/24 09:54 Mechanical Ventilator+ Total Intake and Output 07/16/24 07/16/24 07/17/24 15:00 23:00 07:00 Intake Total 54.5 ml 183.615 ml 98.08 ml Output Total 0 ml 0 ml Balance 54.5 ml 183.615 ml 98.08 ml medications Current Medications Medications Dose Ordered Sig/Rey Route Start Time Stop Time Status Last Admin Dose Admin Vancomycin HCl 0 ml @ 0 mls/hr UD IV 07/08/24 17:00 Sodium Chloride 10 ml Q8HR IV 07/09/24 06:00 07/17/24 07:50 10 ML Vasopressin 20 units/Sodium Chloride 100 ml @ 9 mls/hr Q11H7M IV 07/09/24 13:15 07/14/24 08:47 9 MLS/HR Norepinephrine Bitartrate 32 mg/ Sodium Chloride 250 ml @ 0.938 mls/ hr Q24H IV 07/09/24 15:30 07/17/24 08:56 0.938 MLS/HR Phenylephrine HCl 80 mg/Sodium Chloride 250 ml @ 7.5 mls/hr Q24H IV 07/09/24 15:45 07/10/24 08:08 33.75 MLS/HR Diagnostic Test (Pha) 1 strip Q4HR 07/09/24 18:00 07/17/24 10:00 1 STRIP Epinephrine HCl 250 ml @ 7.5 mls/hr Q24H IV 07/09/24 17:00 07/10/24 05:30 7.5 MLS/HR Pantoprazole Sodium 40 mg DAILY IV 07/10/24 10:00 07/17/24 08:40 40 MG Fentanyl Citrate 250 ml @ 2.5 mls/hr Q24H IV 07/09/24 17:30 07/15/24 21:01 15 MLS/HR Hydrocortisone Sodium Succinate 100 mg Q8H IV 07/09/24 17:44 07/17/24 08:41 100 MG Dextrose 50 ml PRN PRN IV 07/10/24 17:45 07/11/24 09:44 50 ML Epoetin Justus-epbx 10,000 unit MWF SC 07/14/24 21:00 07/16/24 11:07 10,000 UNIT Meropenem 50 ml @ 17 mls/hr Q24H IV 07/13/24 22:00 07/16/24 21:51 17 MLS/HR Albumin Human 50 ml @ 100 mls/hr PRN PRN IV 07/13/24 08:30 Cancel Albumin Human 50 ml @ 50 mls/hr PRN PRN IV 07/13/24 08:20 07/17/24 06:46 50 MLS/HR Enteral Nutritional Formula 1,000 ml 30ML/HR GT 07/13/24 12:00 Dexmedetomidine HCl 400 mcg/ Dextrose 100 ml @ 4.73 mls/hr Q21H9M IV 07/15/24 20:00 07/17/24 08:56 9.46 MLS/HR Lactulose 30 ml DAILY PO 07/17/24 10:00 07/17/24 08:40 30 ML Metoclopramide HCl 5 mg Q8HR IV 07/16/24 22:00 07/17/24 05:15 5 MG Propofol 100 ml @ 2.82 mls/hr Q24H IV 07/16/24 21:00 Calcium Gluconate/ Sodium Chloride 50 ml @ 100 mls/hr Q30M IV 07/17/24 11:15 07/17/24 12:14 07/17/24 11:21 100 MLS/HR Albumin Human 100 ml @ 100 mls/hr Q8H IV 07/17/24 11:15 07/18/24 04:14 objective GENERAL: Intubated on ventilator. Morbidly obese. LUNGS: Decreased breath sounds. CARDIOVASCULAR: Heart sounds are good. ABDOMEN: Soft. EXT: Significant edema to BLE, more significant on RLE. SKIN: Ecchymosis to right upper thigh. laboratory and microbiology Laboratory Tests 07/17/24 03:20 Test 07/17/24 03:20 Range/Units Serum Glucose 179 H 74-106 mg/dL Problem List Hypotension secondary to septic shock. Coronary artery disease status post CABG in 2021. History of hypertension. Hyperlipidemia. Hyperkalemia. Acute anemia. Thrombocytopenia. Transaminitis. End-stage renal disease on hemodialysis. Renal cell carcinoma status post left nephrectomy. COPD. Asthma. Morbid obesity. Dilated cardiomyopathy. Assessment/Plan Continued all current supportive medical care. Dopamine drip. GI prophylactics. IV antibiotics as ordered. Vasopressors for hemodynamic support. Additional plan as per the hospital course. Critical care time of 45 minutes provided to include time spent evaluation of patient at bedside, when appropriate patient/family education for diagnosis, treatment plan, review of pertinent medical information and discussion of care with specialty providers and PCP. Mechanical ventilator parameters, treatment and adjustments have personally been reviewed by me and treatment plan by therapeutic activities services worker has also been reviewed. Dietary Evaluation Review Comments: 1) If GI is accessible consider Nepro 1.8 @ 20 ml/hr with current rate of propofol on board 2) If pt remains NPO >7days of NPO status, provide TPN to meet at least 75% of estimated needs 3) Advance pt diet when medically feasible to a Renal Standard diet modified per USABILITY STRATEGIST recommendations Expected Outcomes/Goals: 1) Pt to receive nutrition support within 7 days of NPO status 2) Pt diet to advance 3) F/U in 2-3 days Plan discussed with: Other FRIDA SIMMONS MD Jul 17, 2024 11:54
--- NOTE | 2024-07-17 15:38 | DVHNC2 ---
Procedure - Bronchoscopy procedure note: Indications: Increased ET tube secretions, Possible mucous plugging. Medicines: See PAPERHANGER APPRENTICE notes. Complications: None Procedure: Patient medications and allergies reviewed. The risks and benefits of the procedure and the sedation options and risk were discussed with the patient's healthcare proxy. All questions were answered and informed consent was obt ained. Patient identification and proposed procedure were verified prior to the procedure by the physician, and a nurse, and the respiratory therapist in ICU room. The heart rate, respiratory rate, oxygen saturations, blood pressure, adequacy of pulmonary ventilation, and response to care were monitored throughout the procedure. The physical status of the patient was reassessed after the procedure. After obtaining informed consent, the bronchoscope was introduced through the endotracheal tube and advanced into the trachea bronchial tree of both lungs. The procedure was accomplished without difficulty. The patient tolerated the procedure well. Findings: The trachea is in normal caliber. The quin is sharp. The tracheobronchial t ree of the right lung was examined to at least the first subsegmental level. The bronchial mucosa and anatomy in the right lung are normal. There are no endobronchial lesions. There was copious whitish secretions from right main stem bronchus onward throughout R4-R10. Right lower lobe (RLL) Bronchoalveolar lavage (BAL) obtained. RLL BAL sent for gram stain and culture. The left upper lobe, lingula, and left lower lobe were examined to at least the first subsegmental level. Bronchial mucosa and anatomy in the left upper lobe and lingula are normal. There were no endobronchial lesions. There was copious whitish secretions from left main stem bronchus onward throughout L1-L10. Mucous plugging removed from L6-L10. There was no active bleeding at the completion of the procedure. Estimated blood loss: Less than 5 mL. Impression: Bilateral lower lobe atelectasis due to mucous plugging Mucous plugging from L6-L10 and R6-R10 RLL BAL performed Recommendation: Follow-up RML BAL results. Procedure codes: 59593, bronchoscopy, rigid and flexible, including fluoroscopic guidance, one performed; with bronchial endobronchial broncho-alveolar lavage, single or multiple sites EB DEJESUS MD Jul 17, 2024 15:38
--- NOTE | 2024-07-17 16:29 | DVH ---
EXAM: XY CHEST PORTABLE TECHNIQUE: Single frontal chest radiograph CLINICAL HISTORY: post bronch COMPARISON: XY CHEST PORTABLE on DOS: 07/17/24, XY CHEST PORTABLE on DOS: 07/16/24, XY CHEST XRAY 1 VIE W on DOS: 07/15/24 Findings/Impression: Frontal chest radiograph demonstrates no acute osseous or superficial soft tissue abnormalities. Endotracheal tube terminates 4.8 cm from the quin. Enteric tube is overlying the plane of the stoma ch. The trachea is midline. Cardiomegaly. Small left pleural effusion and/or atelectasis. No pneumothorax.
[2024-07-17] MEDS: HYDROCORTISONE SOD SUCC 100 MG/2ML INJ VIAL IV SCH (16:56)
[2024-07-17] MEDS ORDERED: VANCOMYCIN 500mg/100mL 100 ML IV ONE (21:00)
[2024-07-17] MEDS ORDERED: VANCOMYCIN 1GM/250ML KIT 125 ML IV ONE (21:30)
[2024-07-17] MEDS: VANCOMYCIN 500mg/100mL 100 ML IV ONE (21:37)
--- NOTE | 2024-07-17 23:07 | DVHPN2 ---
Progress Note - Dictate Date Seen: Jul 17, 2024 Has the PT tested + for MRSA If YES, has PT been informed?: No Medical Necessity Reason Pt with a Central, PICC or Fol: Yes The following are medically ne: Central Line Subjective Patient seen and examined at bedside. Sedated, intubated on mechanical ventilator. Overnight events reviewed vital signs Vital Sign Date Time Temp Pulse Resp B/P (MAP) Pulse Ox O2 Delivery O2 Flow Rate FiO2 07/17/24 22:10 72 25 149/64 (92) 100 30 07/17/24 20:00 Mechanical Ventilator+ 07/17/24 18:30 97.9 208.2 Total Intake and Output 07/16/24 07/16/24 07/17/24 15:00 23:00 07:00 Intake Total 54.5 ml 183.615 ml 98.08 ml Output Total 0 ml 0 ml Balance 54.5 ml 183.615 ml 98.08 ml medications Current Medications Medications Dose Ordered Sig/Rey Route Start Time Stop Time Status Last Admin Dose Admin Vancomycin HCl 0 ml @ 0 mls/hr UD IV 07/08/24 17:00 Sodium Chloride 10 ml Q8HR IV 07/09/24 06:00 07/17/24 22:23 10 ML Vasopressin 20 units/Sodium Chloride 100 ml @ 9 mls/hr Q11H7M IV 07/09/24 13:15 07/14/24 08:47 9 MLS/HR Norepinephrine Bitartrate 32 mg/ Sodium Chloride 250 ml @ 0.938 mls/ hr Q24H IV 07/09/24 15:30 07/17/24 08:56 0.938 MLS/HR Phenylephrine HCl 80 mg/Sodium Chloride 250 ml @ 7.5 mls/hr Q24H IV 07/09/24 15:45 07/10/24 08:08 33.75 MLS/HR Diagnostic Test (Pha) 1 strip Q4HR 07/09/24 18:00 07/17/24 22:23 1 STRIP Epinephrine HCl 250 ml @ 7.5 mls/hr Q24H IV 07/09/24 17:00 07/10/24 05:30 7.5 MLS/HR Pantoprazole Sodium 40 mg DAILY IV 07/10/24 10:00 07/17/24 08:40 40 MG Fentanyl Citrate 250 ml @ 2.5 mls/hr Q24H IV 07/09/24 17:30 07/15/24 21:01 15 MLS/HR Dextrose 50 ml PRN PRN IV 07/10/24 17:45 07/11/24 09:44 50 ML Epoetin Justus-epbx 10,000 unit MWF SC 07/14/24 21:00 07/16/24 11:07 10,000 UNIT Meropenem 50 ml @ 17 mls/hr Q24H IV 07/13/24 22:00 07/17/24 22:23 17 MLS/HR Albumin Human 50 ml @ 100 mls/hr PRN PRN IV 07/13/24 08:30 Cancel Albumin Human 50 ml @ 50 mls/hr PRN PRN IV 07/13/24 08:20 07/17/24 06:46 50 MLS/HR Enteral Nutritional Formula 1,000 ml 30ML/HR GT 07/13/24 12:00 Dexmedetomidine HCl 400 mcg/ Dextrose 100 ml @ 4.73 mls/hr Q21H9M IV 07/15/24 20:00 07/17/24 08:56 9.46 MLS/HR Lactulose 30 ml DAILY PO 07/17/24 10:00 07/17/24 08:40 30 ML Metoclopramide HCl 5 mg Q8HR IV 07/16/24 22:00 07/17/24 22:36 5 MG Propofol 100 ml @ 2.82 mls/hr Q24H IV 07/16/24 21:00 07/17/24 22:35 16.92 MLS/HR Albumin Human 100 ml @ 100 mls/hr Q8H IV 07/17/24 12:30 07/18/24 05:29 07/17/24 20:07 100 MLS/HR Hydrocortisone Sodium Succinate 50 mg Q8H IV 07/17/24 18:00 07/20/24 17:59 07/17/24 16:56 50 MG objective Gen.: Patient lying in bed in medical ICU. Sedated, intubated on mechanical ventilator. Head: Normocephalic, atraumatic. Eyes: PERRLA. Ears: Normal external anatomy. Throat: Endotracheal tube and orogastric tube in place. Neck: Supple, trachea midline. Chest: Transmitted breath sounds bilaterally. Decreased air entry bilaterally. No wheezing. Bibasilar crackles. Cardiovascular: Positive S1, positive S2. Regular rate and rhythm. Abdomen: Positive bowel sounds in all 4 quadrants. Soft, nontender, nondistended. : Whiting in place. Normal external genitalia. Rectal: Deferred. Skin: Warm, dry. Intact. Extremities: 2+ radial pulses bilaterally. No lower extremity edema. Neuro: Sedated laboratory and microbiology Laboratory Tests 07/17/24 19:47 07/17/24 03:20 Test 07/17/24 03:20 Range/Units Serum Glucose 179 H 74-106 mg/dL Assessment/Plan Impression: Acute hypoxic respiratory failure On mechanical ventilator Pulmonary edema Necrotizing fasciitis Septic shock Morbid obesity Events: Remains on vent support On AC mode; RR 16, VT 450 -->400, PEEP 8, FiO2 30% Sedated on Propofol/Fentanyl Increased ET tube secretions noted Pt underwent therapeutic bronchoscopy w/ RLL BAL today - cleared mucous plugging from L6-L10 and R6-R10 See separate procedure note for details. Patient underwent hemodialysis today - 3 L removed. ABG reviewed, alkalemia CXR reviewed, demonstrates small left pleural effusion and/or atelectasis. Devices in place. Hemoglobin stable - continue to monitor Platelet count trending up, 52--> 56 K Pressors for hemodynamic support Levophed 6 mcg/min Titrate to keep MAP above 65 mmHg/SBP above 90 mmHg. Tube feeds for nutritional support Continue antibiotics Continue IV steroids Taper Solu-Cortef 50 mg q.8 h for 3 days Monitor WBC Wound care HD per Nephrology Monitor renal function Monitor electrolytes. Supplement as necessary. Nephrology recommendations appreciated Pt tolerated CPAP today for 1 hour. Continue to taper sedation as tolerated Plan for CPAP in the AM - PS 12, PEEP 8, FiO2 30% OK for Precedex if necessary Labs and imaging reviewed. Rest of plan as noted below. Plan: s/p intubation on mechanical ventilator. CXR image and report reviewed. Left mid and lower lung zone opacification which may represent pneumonia with possible small left-sided pleural effusion. Devices in place. On AC mode; RR 16, VT 400, PEEP 8, FiO2 30% Titrate FIO2 to keep O2 saturation above 90%. VAP bundle. Daily ABG and CXR while intubated Sedate for ventilator synchrony Continue antibiotics. F/u cultures. Continue IV steroids Pressors for hemodynamic support Titrate to keep MAP above 65 mmHg/SBP above 90 mmHg. Monitor renal function Monitor electrolytes. Supplement as necessary. Monitor ins and outs. Maintain euvolemia. GI prophylaxis. DVT prophylaxis. Prognosis: Poor given patient's multiple co-morbidities. Condition: Critical Rest of plan per hospitalist and other consultants. A total of 35 minutes of critical care time was spent reviewing the patient record, examining the patient, making a diagnostic and therapeutic plan, discussing this plan with the medical personnel, following up on diagnostic studies and following the patient for clinical stability excluding any and all procedures. At least 50% of this time was spent in direct, [id number] contact. Thank you Dr. Johnson, for allowing me to participate in this patient's care. Further recommendations will depend on the patient's clinical course. Please do not hesitate to contact me if you have any questions or concerns. This medical document was created using an electronic medical record system with [employer] dictation system. Although these documentations are being carefully reviewed, there may still be some phonetic and typographical changes. The errors are purely typographical, due to imperfection on the software program, and do not reflect any compromise in the patient's medical care. Dietary Evaluation Review Comments: 1) If GI is accessible consider Nepro 1.8 @ 20 ml/hr with current rate of propofol on board 2) If pt remains NPO >7days of NPO status, provide TPN to meet at least 75% of estimated needs 3) Advance pt diet when medically feasible to a Renal Standard diet modified per [employer] recommendations Expected Outcomes/Goals: 1) Pt to receive nutrition support within 7 days of NPO status 2) Pt diet to advance 3) F/U in 2-3 days Plan discussed with: Other (JACEK Kurtz) Critical Care Time(min): 35 EB DEJESUS MD Jul 17, 2024 23:06
[2024-07-18] VITALS (110 sets, daily range): BP systolic 85–178; BP diastolic 29–79; PULSE 61–85; RESP 9–38; TEMP 92.8–99.1; O2SAT 94–100
[2024-07-18 04:03] LABS: Basophils # (auto) 0 10 ^3/uL (0-0.2); Basophils % (auto) 0.2 % (0.0-2.0); Eosinophils # (auto) 0 10 ^3/uL (0-0.8); Eosinophils % (auto) 0.1 % (0.0-7.0); Hematocrit 25.6 % (41.0-53.0); Hemoglobin 8.7 g/dL (13.5-17.5); Lymphocytes # (auto) 0.5 10 ^3/uL (0.4-5.4); Mean Corpuscular Hgb Conc. 33.9 g/dL (32.0-36.0); Mean Corpuscular Volume 106.1 fL (80.0-100.0); Monocytes # (auto) 0.7 10 ^3/uL (0-1.3); Monocytes % (auto) 6.4 % (0.0-12.0); Neutrophils # (auto) 10.2 10 ^3/uL (1.6-8.6); Neutrophils % (auto) 89.3 % (37.0-80.0); Nucleated Red Blood Cells % 0.4 %; Platelet Count (auto) 55 10^3/uL (140-450); Red Blood Cells 2.41 10^6/uL (4.5-5.90); Red Cell Distribution Width 17.3 % (11.8-14.3); White Blood Cell 11.5 10^3/uL (4.4-10.8)
[2024-07-18 04:25] LABS: Anion Gap 17 (5-15); Carbon Dioxide 22 mmol/L (20-31)
[2024-07-18 04:27] LABS: INR 1.73 (0.9-1.15); Partial Thromboplastin Time 34.2 SEC (24.5-34.5); Prothrombin Time 17.4 sec (9.3-11.8)
[2024-07-18 04:30] LABS: BUN/Creatinine Ratio 21.1 (10.0-20.0)
[2024-07-18 04:31] LABS: Alanine Aminotransferase 294 U/L (7-40); Albumin 3.2 g/dL (3.2-4.8); Alkaline Phosphatase 122 U/L (46-116); Aspartate Aminotransferase 205 U/L (13-40); Bilirubin, Total 11.6 mg/dL (0.2-1.0); Chloride 96 mmol/L (98-107); Glucose 171 mg/dL (74-106); Magnesium 2.8 mg/dL (1.6-2.6); Potassium 5.1 mmol/L (3.5-5.1); Sodium 135 mmol/L (136-145); Total Protein 5.5 g/dL (5.7-8.2)
[2024-07-18 04:33] LABS: Blood Urea Nitrogen 108 mg/dL (9-23); Calcium 5.6 mg/dL (8.7-10.4)
[2024-07-18] MEDS: CALCIUM GLUC 1,000mg/50ml-NS 50 ML IV SCH (05:29)
--- NOTE | 2024-07-18 05:48 | DVH ---
CHEST RADIOGRAPH Indication: vent Technique: Single frontal view of the chest was obtained COMPARISON: XY CHEST PORTABLE on DOS: 07/17/24, XY CHEST PORTABLE on DOS: 07/17/24, XY CHEST PORTABLE o n DOS: 07/16/24, XY CHEST XRAY 1 VIEW on DOS: 07/15/24, XY CHEST PORTABLE on DOS: 07/15/24 FINDINGS: Lines and Tubes: Unchanged Lungs: Unchanged atelectasis or pneumonia in the left lower lobe. Pleura: No effusion. No pneumothorax. Cardiomediastinal contours: Unchanged Bones: Intact sternotomy wires IMPRESSION: 1. Unchanged atelectasis or pneumonia in the left lower lobe.
[2024-07-18 06:14] LABS: Base Excess 0.3 mmol/L (-2.0-3.0)
[2024-07-18 07:21] LABS: Base Excess -1.3 mmol/L (-2.0-3.0)
--- NOTE | 2024-07-18 10:07 | DVHPN2 ---
Subjective Off sedation On C-PAP No drips Generalized edema More edema in left arm Reviewed: Care Plan, H&P, Labs, Medications Changes from previous H/P or p: Changes General: Per HPI Eyes: No Pain, No Vision change, No Conjunctivae inflammation, No Eyelid inflammation, No Other, No Redness ENT: No Ear pain, No Ear discharge, No Nose pain, No Nose discharge, No Nose congestion, No Mouth pain, No Mouth swelling, No Throat pain, No Throat swelling, No Other Cardiovascular: Chest Pain Respiratory: Cough Gastrointestinal: No Nausea, No Vomiting, No Abdominal Pain, No Diarrhea, No Constipation, No Melena, No Hematochezia, No Other Genitourinary: No Dysuria, No Frequency, No Incontinence, No Hematuria, No Retention, No Other Musculoskeletal: other, leg pain Skin: Other Objective Vitals Vital Signs Date Time Temp Pulse Resp B/P (MAP) Pulse Ox O2 Delivery O2 Flow Rate FiO2 07/18/24 08:00 98.1 70 13 134/59 (84) 99 208.6 147/66 (93) 07/18/24 07:49 30 07/18/24 07:30 Mechanical Ventilator+ Intake/Output Intake and Output 07/18/24 07:00 Intake Total 1372.391 ml Output Total 0 ml Balance 1372.391 ml Intake Oral 110 ml IV Total 1262.391 ml Stool Total 0 ml General Appearance: Alert, Other HEENT: PERRLA Lungs: Other (Rhonchi and crackles) Cardiovascular: Regular rate, Normal S1, Normal S2 Abdomen: Normal bowel sounds, Soft, No tenderness Musculoskeletal: Other (No motor movement) Neuro: Other (Unable to assess) Skin: Wounds (See nurse notes and pictures) Psych/Mental Status: Other (Unable to assess) Medications Current Medications Medications Dose Ordered Sig/Rey Route Start Time Stop Time Status Last Admin Dose Admin Vancomycin HCl 0 ml @ 0 mls/hr UD IV 07/08/24 17:00 Sodium Chloride 10 ml Q8HR IV 07/09/24 06:00 07/18/24 05:35 10 ML Vasopressin 20 units/Sodium Chloride 100 ml @ 9 mls/hr Q11H7M IV 07/09/24 13:15 07/14/24 08:47 9 MLS/HR Norepinephrine Bitartrate 32 mg/ Sodium Chloride 250 ml @ 0.938 mls/ hr Q24H IV 07/09/24 15:30 07/17/24 08:56 0.938 MLS/HR Phenylephrine HCl 80 mg/Sodium Chloride 250 ml @ 7.5 mls/hr Q24H IV 07/09/24 15:45 07/10/24 08:08 33.75 MLS/HR Diagnostic Test (Pha) 1 strip Q4HR 07/09/24 18:00 07/18/24 05:35 1 STRIP Epinephrine HCl 250 ml @ 7.5 mls/hr Q24H IV 07/09/24 17:00 07/10/24 05:30 7.5 MLS/HR Pantoprazole Sodium 40 mg DAILY IV 07/10/24 10:00 07/18/24 07:57 40 MG Fentanyl Citrate 250 ml @ 2.5 mls/hr Q24H IV 07/09/24 17:30 07/15/24 21:01 15 MLS/HR Dextrose 50 ml PRN PRN IV 07/10/24 17:45 07/11/24 09:44 50 ML Epoetin Justus-epbx 10,000 unit MWF SC 07/14/24 21:00 07/16/24 11:07 10,000 UNIT Meropenem 50 ml @ 17 mls/hr Q24H IV 07/13/24 22:00 07/17/24 22:23 17 MLS/HR Albumin Human 50 ml @ 100 mls/hr PRN PRN IV 07/13/24 08:30 Cancel Albumin Human 50 ml @ 50 mls/hr PRN PRN IV 07/13/24 08:20 07/17/24 06:46 50 MLS/HR Enteral Nutritional Formula 1,000 ml 30ML/HR GT 07/13/24 12:00 Dexmedetomidine HCl 400 mcg/ Dextrose 100 ml @ 4.73 mls/hr Q21H9M IV 07/15/24 20:00 07/17/24 08:56 9.46 MLS/HR Lactulose 30 ml DAILY PO 07/17/24 10:00 07/18/24 07:57 30 ML Metoclopramide HCl 5 mg Q8HR IV 07/16/24 22:00 07/18/24 06:04 5 MG Propofol 100 ml @ 2.82 mls/hr Q24H IV 07/16/24 21:00 07/17/24 22:35 16.92 MLS/HR Hydrocortisone Sodium Succinate 50 mg Q8H IV 07/17/24 18:00 07/20/24 17:59 07/18/24 07:57 50 MG Laboratory Results Laboratory Tests 07/18/24 03:48 Chemistry Test 07/18/24 03:48 Albumin 3.2 g/dL (3.2-4.8) Calcium Level 5.6 mg/dL (8.7-10.4) *L Magnesium Level 2.8 mg/dL (1.6-2.6) H Total Protein 5.5 g/dL (5.7-8.2) L Coagulation Test 07/18/24 03:48 Prothrombin Time 17.4 sec (9.3-11.8) H Prothrombin Time INR 1.73 (0.9-1.15) H Activated Partial Thromboplast Time 34.2 SEC (24.5-34.5) LFT Test 07/18/24 03:48 Alanine Aminotransferase (ALT) 294 U/L (7-40) H Alkaline Phosphatase 122 U/L (46-116) H Aspartate Amino Transferase (AST) 205 U/L (13-40) H Total Bilirubin 11.6 mg/dL (0.2-1.0) H Blood Gas Results Test 07/17/24 14:23 07/18/24 07:07 Arterial Blood pH 7.477 (7.350-7.450) 7.472 (7.350-7.450) FiO2 % 30.0 30.0 Microbiology Microbiology Date/Time Source Procedure Growth Status 07/09/24 19:55 Trachea Gram Stain - Final Complete 07/09/24 19:55 Trachea Respiratory Culture - Final Complete 07/08/24 18:00 Blood Blood Culture - Final Escherichia coli - ESBL Complete Assessment/Plan Assessment/Plan Severe sepsis with septic shock due to bacteremia with E. coli ESBL Bacteremia with E. coli ESBL Right leg infection / cellulitis: Better Metabolic acidosis: Better with HD ESRD on HD h/o kidney CA s/p nephrectomy Hyperkalemia: resolved Thrombocytopenia Coagulopathy LLL atelectasis and effusion CAD Mixed hyperlipidemia DM2 Obesity Hypoglycemia PLAN: 07/14/2024: Continue IV antibiotics: Meropenem and Vanco Vasopressors prn Tube feeding D%W for hypoglycemia, DC once tolerating feeding IV hydrocortisone Taper sedation as tolerated HD per nephrology Vascular surgery (Dr. Mcbride) is following ID consult 07/15/24: HD per nephrology Taper sedation as tolerated Taper down Levophed as tolerated Tube feeding DC IV fluids IV antibiotics Monitor closely 07/17/24: Hypocalcemia: Replace Ca++ IV Hypoalbuminemia: Albumin IV ESRD: HD per nephrology Sepsis: IV antibiotics Resp failure: C-PAP Constipation: Lactulose Tube feeding Thrombocytopenia: stable Transaminitis: Better Discussed with family at the bedside 07/18/24: C-PAP LUE doppler rule out DVT Extubation per Dr. Bermudez Meropenem and Vancomycin Plan discussed with: Other My Orders Orders - DG AQUNIO MD Procedure Category Date Status Time Chest Portable XY 07/18/24 Resulted 06:00 Abg W/ Co-Ox RT 07/18/24 Logged 06:00 Lt Upper Dvt US 07/18/24 Logged 09:44 Date of Service: Jul 18, 2024 Billing Provider: DG AQUINO MD Common Visit Codes: NOT BILLABLE DG AQUINO MD Jul 18, 2024 10:07
--- NOTE | 2024-07-18 10:58 | DVH ---
US LT Upper DVT HISTORY: LEFT ARM SWELLING AFTER DIALYSIS COMPARISON: None TECHNIQUE: Duplex doppler evaluation of the deep venous system of the lower neck and proximal upper e xtremity(ies), including color doppler and spectral/pulsed waveform analysis was performed. FINDINGS: Left: - Internal jugular vein: Compressible - Subclavian vein: Visible portion is patent - Axillary vein: Visible portion is patent - Brachial vein: Compressible - Cephalic vein: Compressible - Basilic vein: Compressible - Ulnar vein: Compressible - Radial vein: Compressible - Other: Nothing IMPRESSION: No left upper extremity deep venous thrombosis.
--- NOTE | 2024-07-18 14:01 | DVH ---
CHEST RADIOGRAPH Indication: post extubation/ increased work of breathing Technique: Single frontal view of the chest was obtained COMPARISON: XY CHEST PORTABLE on DOS: 07/18/24, XY CHEST PORTABLE on DOS: 07/17/24, XY CHEST PORTABLE o n DOS: 07/17/24, XY CHEST PORTABLE on DOS: 07/16/24, XY CHEST XRAY 1 VIEW on DOS: 07/15/24 FINDINGS: Endotracheal tube has been removed. NG tube , sternal wires, and cardiomegaly are re-identified. Ther e is stable left lung base infiltrate and effusion partially obscuring the left hemidiaphragm and lef t heart border. There is central interstitial prominence, slightly increased. Lung volumes are low. IMPRESSION: 1. Interval extubation. 2. Stable left basilar infiltrate and effusion. 3. Cardiomegaly postoperative changes of the heart with central interstitial prominence suggestive of CHF.
[2024-07-18] MEDS: ALBUTEROL SULF 2.5 MG/0.5ML(0.5%) NEB SOLN ONE (14:12)
[2024-07-18] MEDS: IPRATROPIUM BROM 0.5 MG/2.5ML INH SOL ONE (14:12)
[2024-07-18 16:13] LABS: Base Excess -1.9 mmol/L (-2.0-3.0)
[2024-07-18 16:16] LABS: Base Excess -3.3 mmol/L (-2.0-3.0)
--- NOTE | 2024-07-18 18:15 | DVHPN2 ---
Progress Note Date Seen: Jul 18, 2024 Has the PT tested + for MRSA If YES, has PT been informed?: No Medical Necessity Reason Pt with a Central, PICC or Fol: Yes The following are medically ne: Central Line Subjective Patient reports: Other Review of Systems: Deferred Objective vital signs Vital Sign Date Time Temp Pulse Resp B/P (MAP) Pulse Ox O2 Delivery O2 Flow Rate FiO2 07/18/24 17:53 20 98 Bi-Pap+ 30 30 07/18/24 17:53 75 07/18/24 16:45 97.7 123/42 (69) 207.9 144/60 (88) 07/18/24 12:30 10 Total Intake and Output 07/17/24 07/17/24 07/18/24 14:59 22:59 06:59 Intake Total 296.561 ml 597.86 ml 480.20 ml Output Total 0 ml Balance 296.561 ml 597.86 ml 480.20 ml medications Current Medications Medications Dose Ordered Sig/Rey Route Start Time Stop Time Status Last Admin Dose Admin Vancomycin HCl 0 ml @ 0 mls/hr UD IV 07/08/24 17:00 Sodium Chloride 10 ml Q8HR IV 07/09/24 06:00 07/18/24 14:04 10 ML Vasopressin 20 units/Sodium Chloride 100 ml @ 9 mls/hr Q11H7M IV 07/09/24 13:15 07/14/24 08:47 9 MLS/HR Norepinephrine Bitartrate 32 mg/ Sodium Chloride 250 ml @ 0.938 mls/ hr Q24H IV 07/09/24 15:30 07/17/24 08:56 0.938 MLS/HR Phenylephrine HCl 80 mg/Sodium Chloride 250 ml @ 7.5 mls/hr Q24H IV 07/09/24 15:45 07/10/24 08:08 33.75 MLS/HR Diagnostic Test (Pha) 1 strip Q4HR 07/09/24 18:00 07/18/24 17:53 1 STRIP Epinephrine HCl 250 ml @ 7.5 mls/hr Q24H IV 07/09/24 17:00 07/10/24 05:30 7.5 MLS/HR Pantoprazole Sodium 40 mg DAILY IV 07/10/24 10:00 07/18/24 07:57 40 MG Fentanyl Citrate 250 ml @ 2.5 mls/hr Q24H IV 07/09/24 17:30 07/15/24 21:01 15 MLS/HR Dextrose 50 ml PRN PRN IV 07/10/24 17:45 07/11/24 09:44 50 ML Epoetin Justus-epbx 10,000 unit MWF SC 07/14/24 21:00 07/16/24 11:07 10,000 UNIT Meropenem 50 ml @ 17 mls/hr Q24H IV 07/13/24 22:00 07/17/24 22:23 17 MLS/HR Albumin Human 50 ml @ 100 mls/hr PRN PRN IV 07/13/24 08:30 Cancel Albumin Human 50 ml @ 50 mls/hr PRN PRN IV 07/13/24 08:20 07/17/24 06:46 50 MLS/HR Enteral Nutritional Formula 1,000 ml 30ML/HR GT 07/13/24 12:00 Dexmedetomidine HCl 400 mcg/ Dextrose 100 ml @ 4.73 mls/hr Q21H9M IV 07/15/24 20:00 07/17/24 08:56 9.46 MLS/HR Lactulose 30 ml DAILY PO 07/17/24 10:00 07/18/24 07:57 30 ML Metoclopramide HCl 5 mg Q8HR IV 07/16/24 22:00 07/18/24 14:13 5 MG Propofol 100 ml @ 2.82 mls/hr Q24H IV 07/16/24 21:00 07/17/24 22:35 16.92 MLS/HR Hydrocortisone Sodium Succinate 50 mg Q8H IV 07/17/24 18:00 07/20/24 17:59 07/18/24 17:45 50 MG Albuterol 2.5 mg Q6HR HHN 07/18/24 18:00 Ipratropium Ashby 0.5 mg Q6HR NEB 07/18/24 18:00 Examination: GENERAL:Abnormal, LUNGS:Abnormal, MSK:Abnormal, NEURO:Normal laboratory and microbiology Laboratory Tests 07/18/24 03:48 Test 07/18/24 03:48 Range/Units Serum Glucose 171 H 74-106 mg/dL Microbiology Date/Time Source Procedure Growth Status 07/17/24 15:35 Bronchial Washings Gram Stain - Final Resulted 07/17/24 15:35 Bronchial Washings Respiratory Culture - Preliminary Resulted 07/09/24 19:55 Trachea Gram Stain - Final Complete 07/09/24 19:55 Trachea Respiratory Culture - Final Complete 07/08/24 18:00 Blood Blood Culture - Final Escherichia coli - ESBL Complete Problem List/Assessment/Plan Problem List/Assessment/Plan ESRD on HD hyperkalemia uremic acidosis / lactic acidosis septic shock with gram-negative anabella bacteremia lower extremity wound anemia hypoglycemia recs Hemodialysis tomorrow extubated today uf as tolerated Plan discussed with: Other Dietary Evaluation Review Comments: 1) If GI is accessible consider Nepro 1.8 @ 20 ml/hr with current rate of propofol on board 2) If pt remains NPO >7days of NPO status, provide TPN to meet at least 75% of estimated needs 3) Advance pt diet when medically feasible to a Renal Standard diet modified per [employer] recommendations Expected Outcomes/Goals: 1) Pt to receive nutrition support within 7 days of NPO status 2) Pt diet to advance 3) F/U in 2-3 days FAYE KAUR MD Jul 18, 2024 18:15
[2024-07-18] MEDS: ALBUTEROL SULF 2.5 MG/0.5ML(0.5%) NEB SOLN HHN SCH (18:45)
[2024-07-18] MEDS: IPRATROPIUM BROM 0.5 MG/2.5ML INH SOL NEB SCH (18:45)
--- NOTE | 2024-07-18 23:13 | DVHPN2 ---
Progress Note - Dictate Date Seen: Jul 18, 2024 Has the PT tested + for MRSA If YES, has PT been informed?: No Medical Necessity Reason Pt with a Central, PICC or Fol: Yes The following are medically ne: Central Line Subjective Patient was seen and evaluated in follow up in the ICU. Patient was successfully extubated this am. Patient is on 10 L cool aerosol. Patient has BUE edema. WBC 11.5, HGB 8.7, HCT 25.6, PT 17.4, INR 1.73, NA 135, CL 96, BUN 108, DRUG SAFETY PHYSICIAN 5.13, CA 5.6, AST 205, ALT 294. Chest x-ray shows unchanged atelectasis or pneumonia in the left lower lobe. LUE Venous Doppler showed no evidence of DVT. vital signs Vital Sign Date Time Temp Pulse Resp B/P (MAP) Pulse Ox O2 Delivery O2 Flow Rate FiO2 07/18/24 11:15 98.4 76 27 154/66 (95) 97 209.1 07/18/24 10:41 10.0 07/18/24 10:00 Cool Aerosol 40 40 Total Intake and Output 07/17/24 07/17/24 07/18/24 15:00 23:00 07:00 Intake Total 314.021 ml 602.27 ml 456.10 ml Output Total 0 ml Balance 314.021 ml 602.27 ml 456.10 ml medications Current Medications Medications Dose Ordered Sig/Rey Route Start Time Stop Time Status Last Admin Dose Admin Vancomycin HCl 0 ml @ 0 mls/hr UD IV 07/08/24 17:00 Sodium Chloride 10 ml Q8HR IV 07/09/24 06:00 07/18/24 05:35 10 ML Vasopressin 20 units/Sodium Chloride 100 ml @ 9 mls/hr Q11H7M IV 07/09/24 13:15 07/14/24 08:47 9 MLS/HR Norepinephrine Bitartrate 32 mg/ Sodium Chloride 250 ml @ 0.938 mls/ hr Q24H IV 07/09/24 15:30 07/17/24 08:56 0.938 MLS/HR Phenylephrine HCl 80 mg/Sodium Chloride 250 ml @ 7.5 mls/hr Q24H IV 07/09/24 15:45 07/10/24 08:08 33.75 MLS/HR Diagnostic Test (Pha) 1 strip Q4HR 07/09/24 18:00 07/18/24 10:05 1 STRIP Epinephrine HCl 250 ml @ 7.5 mls/hr Q24H IV 07/09/24 17:00 07/10/24 05:30 7.5 MLS/HR Pantoprazole Sodium 40 mg DAILY IV 07/10/24 10:00 07/18/24 07:57 40 MG Fentanyl Citrate 250 ml @ 2.5 mls/hr Q24H IV 07/09/24 17:30 07/15/24 21:01 15 MLS/HR Dextrose 50 ml PRN PRN IV 07/10/24 17:45 07/11/24 09:44 50 ML Epoetin Justus-epbx 10,000 unit MWF SC 07/14/24 21:00 07/16/24 11:07 10,000 UNIT Meropenem 50 ml @ 17 mls/hr Q24H IV 07/13/24 22:00 07/17/24 22:23 17 MLS/HR Albumin Human 50 ml @ 100 mls/hr PRN PRN IV 07/13/24 08:30 Cancel Albumin Human 50 ml @ 50 mls/hr PRN PRN IV 07/13/24 08:20 07/17/24 06:46 50 MLS/HR Enteral Nutritional Formula 1,000 ml 30ML/HR GT 07/13/24 12:00 Dexmedetomidine HCl 400 mcg/ Dextrose 100 ml @ 4.73 mls/hr Q21H9M IV 07/15/24 20:00 07/17/24 08:56 9.46 MLS/HR Lactulose 30 ml DAILY PO 07/17/24 10:00 07/18/24 07:57 30 ML Metoclopramide HCl 5 mg Q8HR IV 07/16/24 22:00 07/18/24 06:04 5 MG Propofol 100 ml @ 2.82 mls/hr Q24H IV 07/16/24 21:00 07/17/24 22:35 16.92 MLS/HR Hydrocortisone Sodium Succinate 50 mg Q8H IV 07/17/24 18:00 07/20/24 17:59 07/18/24 07:57 50 MG objective GENERAL: Awake, alert, oriented. Morbidly obese. LUNGS: Decreased breath sounds. CARDIOVASCULAR: Heart sounds are good. ABDOMEN: Soft. EXT: BLE edema. SKIN: Ecchymosis to right upper thigh. laboratory and microbiology Laboratory Tests 07/18/24 03:48 Test 07/18/24 03:48 Range/Units Serum Glucose 171 H 74-106 mg/dL Problem List Hypotension secondary to septic shock. Coronary artery disease status post CABG in 2021. History of hypertension. Hyperlipidemia. Hyperkalemia. Acute anemia. Thrombocytopenia. Transaminitis. End-stage renal disease on hemodialysis. Renal cell carcinoma status post left nephrectomy. COPD. Asthma. Morbid obesity. Dilated cardiomyopathy. Assessment/Plan Continued all current supportive medical care. Dopamine drip. GI prophylactics. IV antibiotics as ordered. Vasopressors for hemodynamic support. Additional plan as per the hospital course. Critical care time of 45 minutes provided to include time spent evaluation of patient at bedside, when appropriate patient/family education for diagnosis, treatment plan, review of pertinent medical information and discussion of care with specialty providers and PCP. Dietary Evaluation Review Comments: 1) If GI is accessible consider Nepro 1.8 @ 20 ml/hr with current rate of propofol on board 2) If pt remains NPO >7days of NPO status, provide TPN to meet at least 75% of estimated needs 3) Advance pt diet when medically feasible to a Renal Standard diet modified per [employer] recommendations Expected Outcomes/Goals: 1) Pt to receive nutrition support within 7 days of NPO status 2) Pt diet to advance 3) F/U in 2-3 days Plan discussed with: Patient FRIDA SIMMONS MD Jul 18, 2024 12:32
--- NOTE | 2024-07-18 23:33 | DVHPN2 ---
Progress Note - Dictate Date Seen: Jul 18, 2024 Has the PT tested + for MRSA If YES, has PT been informed?: No Medical Necessity Reason Pt with a Central, PICC or Fol: Yes The following are medically ne: Central Line Subjective Patient seen and examined at bedside. S/p extubation, currently on BiPAP Overnight events reviewed vital signs Vital Sign Date Time Temp Pulse Resp B/P (MAP) Pulse Ox O2 Delivery O2 Flow Rate FiO2 07/18/24 20:28 62 100/49 98 Facial BiPAP Mask 30 07/18/24 18:45 97.5 18 207.5 07/18/24 12:30 10 Total Intake and Output 07/17/24 07/17/24 07/18/24 15:00 23:00 07:00 Intake Total 314.021 ml 602.27 ml 456.10 ml Output Total 0 ml Balance 314.021 ml 602.27 ml 456.10 ml medications Current Medications Medications Dose Ordered Sig/Rey Route Start Time Stop Time Status Last Admin Dose Admin Vancomycin HCl 0 ml @ 0 mls/hr UD IV 07/08/24 17:00 Sodium Chloride 10 ml Q8HR IV 07/09/24 06:00 07/18/24 21:47 10 ML Vasopressin 20 units/Sodium Chloride 100 ml @ 9 mls/hr Q11H7M IV 07/09/24 13:15 07/14/24 08:47 9 MLS/HR Norepinephrine Bitartrate 32 mg/ Sodium Chloride 250 ml @ 0.938 mls/ hr Q24H IV 07/09/24 15:30 07/17/24 08:56 0.938 MLS/HR Phenylephrine HCl 80 mg/Sodium Chloride 250 ml @ 7.5 mls/hr Q24H IV 07/09/24 15:45 07/10/24 08:08 33.75 MLS/HR Diagnostic Test (Pha) 1 strip Q4HR 07/09/24 18:00 07/18/24 21:45 1 STRIP Epinephrine HCl 250 ml @ 7.5 mls/hr Q24H IV 07/09/24 17:00 07/10/24 05:30 7.5 MLS/HR Pantoprazole Sodium 40 mg DAILY IV 07/10/24 10:00 07/18/24 07:57 40 MG Dextrose 50 ml PRN PRN IV 07/10/24 17:45 07/11/24 09:44 50 ML Epoetin Justus-epbx 10,000 unit MWF SC 07/14/24 21:00 07/16/24 11:07 10,000 UNIT Meropenem 50 ml @ 17 mls/hr Q24H IV 07/13/24 22:00 07/18/24 21:35 17 MLS/HR Albumin Human 50 ml @ 100 mls/hr PRN PRN IV 07/13/24 08:30 Cancel Albumin Human 50 ml @ 50 mls/hr PRN PRN IV 07/13/24 08:20 07/17/24 06:46 50 MLS/HR Enteral Nutritional Formula 1,000 ml 30ML/HR GT 07/13/24 12:00 Dexmedetomidine HCl 400 mcg/ Dextrose 100 ml @ 4.73 mls/hr Q21H9M IV 07/15/24 20:00 07/18/24 18:15 9.46 MLS/HR Lactulose 30 ml DAILY PO 07/17/24 10:00 07/18/24 07:57 30 ML Metoclopramide HCl 5 mg Q8HR IV 07/16/24 22:00 07/18/24 21:43 5 MG Propofol 100 ml @ 2.82 mls/hr Q24H IV 07/16/24 21:00 07/17/24 22:35 16.92 MLS/HR Hydrocortisone Sodium Succinate 50 mg Q8H IV 07/17/24 18:00 07/20/24 17:59 07/18/24 17:45 50 MG Albuterol 2.5 mg Q6HR HHN 07/18/24 18:00 07/18/24 18:45 2.5 MG Ipratropium [place] 0.5 mg Q6HR NEB 07/18/24 18:00 07/18/24 18:45 0.5 MG objective Gen.: Patient lying in bed in no apparent distress. On BiPAP. Head: Normocephalic, atraumatic. Eyes: EOMI/PERRLA. Ears: Normal hearing. Normal anatomy. Neck/trachea: Trachea midline, supple. Nose: Normal external anatomy. Mouth: Moist mucous membranes. Chest: Decreased air entry bilaterally. No wheezing or rhonchi. Cardiovascular: Positive S1, positive S2. Regular rate and rhythm. Abdomen: Positive bowel sounds in all 4 quadrants. Soft, non-tender, non- distended. : Deferred. Rectal: Deferred. Skin: Warm, dry. Intact. Extremities: 2+ radial pulses bilaterally. No lower extremity edema. Neuro: Awake, alert, oriented x3. No gross motor or sensory deficits. Cranial nerves II through XII intact. Gait not assessed. laboratory and microbiology Laboratory Tests 07/18/24 03:48 Test 07/18/24 03:48 Range/Units Serum Glucose 171 H 74-106 mg/dL Assessment/Plan Impression: Acute hypoxic respiratory failure On mechanical ventilator Pulmonary edema Necrotizing fasciitis Septic shock Morbid obesity Events: Patient tolerated CPAP and was extubated uneventfully today. He subsequently developed respiratory distress and was started on BIPAP On BiPAP with IPAP 12, EPAP 5, FiO2 30% Improved work of breathing was noted. Off sedation On Precedex drip. ABG reviewed, compensated. CXR reviewed, demonstrates stable left basilar infiltrate and effusion. Obtain CXR in AM to assess for interval changes. Pt underwent therapeutic bronchoscopy w/ RLL BAL on 07/17/24 - cleared mucous plugging from L6-L10 and R6-R10 See separate procedure note for details. Patient underwent hemodialysis yesterday with 3 L removed. Hemoglobin trending down at 8.7 g/dL - continue to monitor Monitor platelet count - 55 K Off pressors, hemodynamically stable. Tube feeds for nutritional support Continue antibiotics Continue IV steroids Taper Solu-Cortef 50 mg q.8 h for 3 days Monitor WBC Wound care HD per Nephrology Monitor renal function Monitor electrolytes. Supplement as necessary. Nephrology recommendations appreciated Labs and imaging reviewed. Rest of plan as noted below. Plan: s/p extubation On BiPAP with IPAP 12, EPAP 5, FiO2 30% Titrate to keep O2 saturations above 90%. Off sedation Continue antibiotics. F/u cultures. Continue IV steroids Pressors if necessary for hemodynamic support Titrate to keep MAP above 65 mmHg/SBP above 90 mmHg. Monitor renal function Monitor electrolytes. Supplement as necessary. Monitor ins and outs. GI prophylaxis. DVT prophylaxis. Prognosis: Poor given patient's multiple co-morbidities. Condition: Critical Rest of plan per hospitalist and other consultants. A total of 35 minutes of critical care time was spent reviewing the patient record, examining the patient, making a diagnostic and therapeutic plan, discussing this plan with the medical personnel, following up on diagnostic studies and following the patient for clinical stability excluding any and all procedures. At least 50% of this time was spent in direct, [id number] contact. Thank you Dr. Johnson, for allowing me to participate in this patient's care. Further recommendations will depend on the patient's clinical course. Please do not hesitate to contact me if you have any questions or concerns. This medical document was created using an electronic medical record system with [employer] dictation system. Although these documentations are being carefully reviewed, there may still be some phonetic and typographical changes. The errors are purely typographical, due to imperfection on the software program, and do not reflect any compromise in the patient's medical care. Dietary Evaluation Review Comments: 1) If GI is accessible consider Nepro 1.8 @ 20 ml/hr with current rate of propofol on board 2) If pt remains NPO >7days of NPO status, provide TPN to meet at least 75% of estimated needs 3) Advance pt diet when medically feasible to a Renal Standard diet modified per [employer]SULTANT recommendations Expected Outcomes/Goals: 1) Pt to receive nutrition support within 7 days of NPO status 2) Pt diet to advance 3) F/U in 2-3 days Plan discussed with: Other (JACEK Merrill) Critical Care Time(min): 35 EB DEJESUS MD Jul 18, 2024 23:33
[2024-07-19] VITALS (104 sets, daily range): BP systolic 91–191; BP diastolic 21–83; PULSE 69–88; RESP 16–37; TEMP 75.2–99.1; O2SAT 90–100
[2024-07-19 03:57] LABS: Basophils # (auto) 0 10 ^3/uL (0-0.2); Eosinophils # (auto) 0 10 ^3/uL (0-0.8); Hemoglobin 9.6 g/dL (13.5-17.5); Monocytes # (auto) 0.9 10 ^3/uL (0-1.3); Nucleated Red Blood Cells % 0.2 %; White Blood Cell 13.1 10^3/uL (4.4-10.8)
[2024-07-19 04:00] LABS: Basophils % (auto) 0.3 % (0.0-2.0); Hematocrit 28.8 % (41.0-53.0); Lymphocytes # (auto) 0.3 10 ^3/uL (0.4-5.4); Lymphocytes % (auto) 2.6 % (10.0-50.0); Mean Corpuscular Hemoglobin 35.4 pg (28.0-32.0); Mean Corpuscular Hgb Conc. 33.4 g/dL (32.0-36.0); Mean Corpuscular Volume 105.9 fL (80.0-100.0); Monocytes % (auto) 6.8 % (0.0-12.0); Neutrophils # (auto) 11.9 10 ^3/uL (1.6-8.6); Neutrophils % (auto) 90.3 % (37.0-80.0); Platelet Count (auto) 65 10^3/uL (140-450); Red Blood Cells 2.72 10^6/uL (4.5-5.90)
[2024-07-19 04:47] LABS: Anion Gap 19 (5-15)
[2024-07-19 04:52] LABS: BUN/Creatinine Ratio 21.4 (10.0-20.0)
[2024-07-19 04:57] LABS: Alanine Aminotransferase 261 U/L (7-40); Albumin 3.5 g/dL (3.2-4.8); Alkaline Phosphatase 138 U/L (46-116); Aspartate Aminotransferase 212 U/L (13-40); Carbon Dioxide 18 mmol/L (20-31); Chloride 96 mmol/L (98-107); Glucose 170 mg/dL (74-106); Magnesium 3.2 mg/dL (1.6-2.6); Phosphorus 11.4 mg/dL (2.4-5.1); Sodium 133 mmol/L (136-145); Total Protein 6.3 g/dL (5.7-8.2)
[2024-07-19 04:59] LABS: Blood Urea Nitrogen 132 mg/dL (9-23); Calcium 5.5 mg/dL (8.7-10.4); Potassium 6.3 mmol/L (3.5-5.1)
--- NOTE | 2024-07-19 05:08 | DVH ---
CHEST RADIOGRAPH Indication: post extubation/ bipap Technique: Single frontal view of the chest was obtained Comparison: XY CHEST PORTABLE on DOS: 07/18/24 FINDINGS: Lines and Tubes: Enteric tube terminates in the stomach. Lungs: Bibasilar opacities. Pleura: Left pleural effusion. No pneumothorax. Cardiomediastinal contours: Cardiomegaly Bones: No acute osseous abnormality. The patient is status post median sternotomy. IMPRESSION: 1. No significant interval change.
[2024-07-19] MEDS: SODIUM CHL 0.9% 1000 ML BAG XX ONE (08:00)
[2024-07-19] MEDS: ALBUTEROL SULF 2.5 MG/0.5ML(0.5%) NEB SOLN NEB ONE (08:05)
--- NOTE | 2024-07-19 09:50 | DVHPN2 ---
Subjective He was extubated yesterday He is on 3 L nasal cannula He is undergoing dialysis at this time Reviewed: Care Plan, H&P, Labs, Medications Changes from previous H/P or p: Changes General: Per HPI Eyes: No Pain, No Vision change, No Conjunctivae inflammation, No Eyelid inflammation, No Other, No Redness ENT: No Ear pain, No Ear discharge, No Nose pain, No Nose discharge, No Nose congestion, No Mouth pain, No Mouth swelling, No Throat pain, No Throat swelling, No Other Cardiovascular: Chest Pain Respiratory: Cough Gastrointestinal: No Nausea, No Vomiting, No Abdominal Pain, No Diarrhea, No Constipation, No Melena, No Hematochezia, No Other Genitourinary: No Dysuria, No Frequency, No Incontinence, No Hematuria, No Retention, No Other Musculoskeletal: other, leg pain Skin: Other Objective Vitals Vital Signs Date Time Temp Pulse Resp B/P (MAP) Pulse Ox O2 Delivery O2 Flow Rate FiO2 07/19/24 09:00 79.5 80 20 103/49 (67) 91 175.1 07/19/24 08:05 Nasal Cannula 3.0 07/19/24 08:05 32 Intake/Output Intake and Output 07/19/24 06:59 Intake Total 144.400 ml Output Total 0 ml Balance 144.400 ml IV Total 144.400 ml Output Urine Total 0 ml General Appearance: Alert, Other HEENT: PERRLA Lungs: Other (Rhonchi and crackles) Cardiovascular: Regular rate, Normal S1, Normal S2 Abdomen: Normal bowel sounds, Soft, No tenderness Musculoskeletal: Other (No motor movement) Neuro: Other (Unable to assess) Skin: Wounds (See nurse notes and pictures) Psych/Mental Status: Other (Unable to assess) Medications Current Medications Medications Dose Ordered Sig/Rey Route Start Time Stop Time Status Last Admin Dose Admin Vancomycin HCl 0 ml @ 0 mls/hr UD IV 07/08/24 17:00 Sodium Chloride 10 ml Q8HR IV 07/09/24 06:00 07/19/24 06:40 10 ML Vasopressin 20 units/Sodium Chloride 100 ml @ 9 mls/hr Q11H7M IV 07/09/24 13:15 07/14/24 08:47 9 MLS/HR Norepinephrine Bitartrate 32 mg/ Sodium Chloride 250 ml @ 0.938 mls/ hr Q24H IV 07/09/24 15:30 07/17/24 08:56 0.938 MLS/HR Phenylephrine HCl 80 mg/Sodium Chloride 250 ml @ 7.5 mls/hr Q24H IV 07/09/24 15:45 07/10/24 08:08 33.75 MLS/HR Diagnostic Test (Pha) 1 strip Q4HR 07/09/24 18:00 07/19/24 06:41 1 STRIP Epinephrine HCl 250 ml @ 7.5 mls/hr Q24H IV 07/09/24 17:00 07/10/24 05:30 7.5 MLS/HR Pantoprazole Sodium 40 mg DAILY IV 07/10/24 10:00 07/19/24 09:01 40 MG Dextrose 50 ml PRN PRN IV 07/10/24 17:45 07/11/24 09:44 50 ML Epoetin Justus-epbx 10,000 unit MWF SC 07/14/24 21:00 07/16/24 11:07 10,000 UNIT Meropenem 50 ml @ 17 mls/hr Q24H IV 07/13/24 22:00 07/18/24 21:35 17 MLS/HR Albumin Human 50 ml @ 100 mls/hr PRN PRN IV 07/13/24 08:30 Cancel Albumin Human 50 ml @ 50 mls/hr PRN PRN IV 07/13/24 08:20 07/17/24 06:46 50 MLS/HR Enteral Nutritional Formula 1,000 ml 30ML/HR GT 07/13/24 12:00 Dexmedetomidine HCl 400 mcg/ Dextrose 100 ml @ 4.73 mls/hr Q21H9M IV 07/15/24 20:00 07/19/24 08:49 7.095 MLS/HR Lactulose 30 ml DAILY PO 07/17/24 10:00 07/18/24 07:57 30 ML Metoclopramide HCl 5 mg Q8HR IV 07/16/24 22:00 07/19/24 06:40 5 MG Propofol 100 ml @ 2.82 mls/hr Q24H IV 07/16/24 21:00 07/17/24 22:35 16.92 MLS/HR Hydrocortisone Sodium Succinate 50 mg Q8H IV 07/17/24 18:00 07/20/24 17:59 07/19/24 09:01 50 MG Albuterol 2.5 mg Q6HR HHN 07/18/24 18:00 07/19/24 05:41 2.5 MG Ipratropium [place] 0.5 mg Q6HR NEB 07/18/24 18:00 07/19/24 05:41 0.5 MG Laboratory Results Laboratory Tests 07/19/24 03:12 Chemistry Test 07/19/24 03:12 Albumin 3.5 g/dL (3.2-4.8) Calcium Level 5.5 mg/dL (8.7-10.4) *L Magnesium Level 3.2 mg/dL (1.6-2.6) H Phosphorus Level 11.4 mg/dL (2.4-5.1) H Total Protein 6.3 g/dL (5.7-8.2) LFT Test 07/19/24 03:12 Alanine Aminotransferase (ALT) 261 U/L (7-40) H Alkaline Phosphatase 138 U/L (46-116) H Aspartate Amino Transferase (AST) 212 U/L (13-40) H Total Bilirubin 12.0 mg/dL (0.2-1.0) H Blood Gas Results Test 07/18/24 14:38 Arterial Blood pH 7.428 (7.350-7.450) FiO2 % 30.0 Microbiology Microbiology Date/Time Source Procedure Growth Status 07/17/24 15:35 Bronchial Washings Gram Stain - Final Resulted 07/17/24 15:35 Bronchial Washings Respiratory Culture - Preliminary Resulted 07/09/24 19:55 Trachea Gram Stain - Final Complete 07/09/24 19:55 Trachea Respiratory Culture - Final Complete 07/08/24 18:00 Blood Blood Culture - Final Escherichia coli - ESBL Complete Assessment/Plan Assessment/Plan Severe sepsis with septic shock due to bacteremia with E. coli ESBL Bacteremia with E. coli ESBL Right leg infection / cellulitis: Better Metabolic acidosis: Better with HD ESRD on HD h/o kidney CA s/p nephrectomy Hyperkalemia: resolved Thrombocytopenia Coagulopathy LLL atelectasis and effusion CAD Mixed hyperlipidemia DM2 Obesity Hypoglycemia PLAN: 07/14/2024: Continue IV antibiotics: Meropenem and Vanco Vasopressors prn Tube feeding D%W for hypoglycemia, DC once tolerating feeding IV hydrocortisone Taper sedation as tolerated HD per nephrology Vascular surgery (Dr. Mcbride) is following ID consult 07/15/24: HD per nephrology Taper sedation as tolerated Taper down Levophed as tolerated Tube feeding DC IV fluids IV antibiotics Monitor closely 07/17/24: Hypocalcemia: Replace Ca++ IV Hypoalbuminemia: Albumin IV ESRD: HD per nephrology Sepsis: IV antibiotics Resp failure: C-PAP Constipation: Lactulose Tube feeding Thrombocytopenia: stable Transaminitis: Better Discussed with family at the bedside 07/18/24: C-PAP LUE doppler rule out DVT Extubation per Dr. Bermudez Meropenem and Vancomycin 07/19/2024: Hemodialysis per nephrology Monitor closely We will have to discuss the advance directives with the family again today 1 day come The patient is still confused and edematous Ultrasound of the left arm showed no DVT Plan discussed with: Other Date of Service: Jul 19, 2024 Billing Provider: DG AQUINO MD Common Visit Codes: NOT BILLABLE DG AQUINO MD Jul 19, 2024 09:50
[2024-07-19 13:08] LABS: Potassium 4.7 mmol/L (3.5-5.1); Sodium 138 mmol/L (136-145)
[2024-07-19 13:09] LABS: Chloride 97 mmol/L (98-107)
[2024-07-19 13:10] LABS: Anion Gap 17 (5-15); Calcium 6.5 mg/dL (8.7-10.4); Carbon Dioxide 24 mmol/L (20-31)
[2024-07-19] MEDS: CALCIUM GLUC 1,000mg/50ml-NS 50 ML IV ONE (13:17)
[2024-07-19 13:18] LABS: Blood Urea Nitrogen 78 mg/dL (9-23); Glucose 145 mg/dL (74-106)
[2024-07-19] MEDS: InsuLIN REG 1unit/0.01ml Soln (100units/ml) IV ONE (13:18)
[2024-07-19] MEDS: DEXTROSE (50%) 50ML SYRG IV ONE (13:18)
[2024-07-19] MEDS: SODIUM BICARB 8.4% 50Meq/50ml SYR INJ IV ONE (13:18)
[2024-07-19 13:21] LABS: BUN/Creatinine Ratio 17.2 (10.0-20.0)
[2024-07-19] MEDS: MICAFUNGIN SODIUM 100 MG in SODIUM CHL 0.9% 100 ML IV ONE (14:50)
--- NOTE | 2024-07-19 14:53 | DVH ---
CT brain without contrast CLINICAL INDICATION: Altered mental status FINDINGS: The study was performed in a multidetector scanner. This study performed taking axial imag es from the skull base up to the vertex. Both brain and bone windows are photographed. Dose lowering techniques have been used including automated exposure control and adjustment of mA and /or KV according to patient size. No intraparenchymal hemorrhage or edema. No extra-axial hemorrhage. No hydrocephalus or midline shift. Cortical sulcal markings are prominent. IMPRESSION: 1. Atrophy. No acute intracranial pathology Computed Tomographic Radiation Dosimetry Report: Total CTDI vol = 62 mGy Total DLP = 1233 mGy-cm All CT scans at this medical facility are performed using dose modulation techniques as appropriate t o a performed exam including the following: Automated exposure control was utilized; adjustment of the MA and/or KvP according to patient size; a nd use of iterative reconstruction technique.
[2024-07-19] MEDS: hydrALAZINE HCL 20 MG/ML VL IV PRN (15:26)
[2024-07-19] MEDS: GLYCOPYRROLATE 0.2 MG/ML 1ML VIAL IV ONE (15:40)
--- NOTE | 2024-07-19 15:41 | DVHPN2 ---
Progress Note - Dictate Date Seen: Jul 19, 2024 Has the PT tested + for MRSA If YES, has PT been informed?: No Medical Necessity Reason Pt with a Central, PICC or Fol: Yes The following are medically ne: Central Line Subjective Patient was seen and evaluated in follow up in the ICU. Patient is on 3 LPM NC. Chest shows bibasilar opacities, left pleural effusion, cardiomegaly. CT head shows atrophy. No acute intracranial pathology. WBC 13.1, HGB 9.6, HCT 28.8, BUN 78, Plasma Center Nurse 4.54, CA 6.5. vital signs Vital Sign Date Time Temp Pulse Resp B/P (MAP) Pulse Ox O2 Delivery O2 Flow Rate FiO2 07/19/24 13:55 78 07/19/24 13:55 23 92 Nasal Cannula* 3 32 07/19/24 12:45 145/51 (82) 07/19/24 12:00 98.9 98.9 Total Intake and Output 07/18/24 07/18/24 07/19/24 15:00 23:00 07:00 Intake Total 11.825 ml 75.68 ml 54.395 ml Output Total 0 ml 0 ml Balance 11.825 ml 75.68 ml 54.395 ml medications Current Medications Medications Dose Ordered Sig/Rey Route Start Time Stop Time Status Last Admin Dose Admin Vancomycin HCl 0 ml @ 0 mls/hr UD IV 07/08/24 17:00 Sodium Chloride 10 ml Q8HR IV 07/09/24 06:00 07/19/24 14:13 10 ML Vasopressin 20 units/Sodium Chloride 100 ml @ 9 mls/hr Q11H7M IV 07/09/24 13:15 07/14/24 08:47 9 MLS/HR Norepinephrine Bitartrate 32 mg/ Sodium Chloride 250 ml @ 0.938 mls/ hr Q24H IV 07/09/24 15:30 07/17/24 08:56 0.938 MLS/HR Phenylephrine HCl 80 mg/Sodium Chloride 250 ml @ 7.5 mls/hr Q24H IV 07/09/24 15:45 07/10/24 08:08 33.75 MLS/HR Diagnostic Test (Pha) 1 strip Q4HR 07/09/24 18:00 07/19/24 10:29 1 STRIP Epinephrine HCl 250 ml @ 7.5 mls/hr Q24H IV 07/09/24 17:00 07/10/24 05:30 7.5 MLS/HR Pantoprazole Sodium 40 mg DAILY IV 07/10/24 10:00 07/19/24 09:01 40 MG Dextrose 50 ml PRN PRN IV 07/10/24 17:45 07/11/24 09:44 50 ML Epoetin Justus-epbx 10,000 unit MWF SC 07/14/24 21:00 07/19/24 10:00 10,000 UNIT Meropenem 50 ml @ 17 mls/hr Q24H IV 07/13/24 22:00 07/18/24 21:35 17 MLS/HR Albumin Human 50 ml @ 100 mls/hr PRN PRN IV 07/13/24 08:30 Cancel Albumin Human 50 ml @ 50 mls/hr PRN PRN IV 07/13/24 08:20 07/19/24 08:35 50 MLS/HR Enteral Nutritional Formula 1,000 ml 30ML/HR GT 07/13/24 12:00 Dexmedetomidine HCl 400 mcg/ Dextrose 100 ml @ 4.73 mls/hr Q21H9M IV 07/15/24 20:00 07/19/24 08:49 7.095 MLS/HR Lactulose 30 ml DAILY PO 07/17/24 10:00 07/18/24 07:57 30 ML Metoclopramide HCl 5 mg Q8HR IV 07/16/24 22:00 07/19/24 06:40 5 MG Propofol 100 ml @ 2.82 mls/hr Q24H IV 07/16/24 21:00 07/17/24 22:35 16.92 MLS/HR Hydrocortisone Sodium Succinate 50 mg Q8H IV 07/17/24 18:00 07/20/24 17:59 07/19/24 09:01 50 MG Albuterol 2.5 mg Q6HR HHN 07/18/24 18:00 07/19/24 11:46 2.5 MG Ipratropium [place] 0.5 mg Q6HR NEB 07/18/24 18:00 07/19/24 11:46 0.5 MG Micafungin Sodium 100 mg/Sodium Chloride 100 ml @ 100 mls/hr DAILY IV 07/20/24 10:00 objective GENERAL: Awake, alert, oriented. Morbidly obese. LUNGS: Decreased breath sounds. CARDIOVASCULAR: Heart sounds are good. ABDOMEN: Soft. EXT: BLE edema. SKIN: Ecchymosis to right upper thigh. laboratory and microbiology Laboratory Tests 07/19/24 12:39 07/19/24 03:12 Test 07/19/24 12:39 Range/Units Serum Glucose 145 H 74-106 mg/dL Problem List Hypotension secondary to septic shock. Coronary artery disease status post CABG in 2021. History of hypertension. Hyperlipidemia. Hyperkalemia. Acute anemia. Thrombocytopenia. Transaminitis. End-stage renal disease on hemodialysis. Renal cell carcinoma status post left nephrectomy. COPD. Asthma. Morbid obesity. Dilated cardiomyopathy. Assessment/Plan Continued all current supportive medical care. GI prophylactics. IV antibiotics as ordered. Vasopressors for hemodynamic support. Additional plan as per the hospital course. Critical care time of 45 minutes provided to include time spent evaluation of patient at bedside, when appropriate patient/family education for diagnosis, treatment plan, review of pertinent medical information and discussion of care with specialty providers and PCP. Dietary Evaluation Review Comments: 1) If GI is accessible consider Nepro 1.8 @ 20 ml/hr with current rate of propofol on board 2) If pt remains NPO >7days of NPO status, provide TPN to meet at least 75% of estimated needs 3) Advance pt diet when medically feasible to a Renal Standard diet modified per [employer] CASTER recommendations Expected Outcomes/Goals: 1) Pt to receive nutrition support within 7 days of NPO status 2) Pt diet to advance 3) F/U in 2-3 days Plan discussed with: Patient FRIDA SIMMONS MD Jul 19, 2024 15:41
[2024-07-19] MEDS: hydrALAZINE HCL 20 MG/ML VL IV ONE (15:45)
--- NOTE | 2024-07-19 15:55 | DVHPN2 ---
Progress Note Date Seen: Jul 19, 2024 Has the PT tested + for MRSA If YES, has PT been informed?: No Medical Necessity Reason Pt with a Central, PICC or Fol: Yes The following are medically ne: Central Line Subjective Other Systems: Patient seen and examined on HD, BP stable Objective vital signs Vital Sign Date Time Temp Pulse Resp B/P (MAP) Pulse Ox O2 Delivery O2 Flow Rate FiO2 07/19/24 15:26 164/66 07/19/24 13:55 78 07/19/24 13:55 23 92 Nasal Cannula* 3 32 07/19/24 12:00 98.9 98.9 Total Intake and Output 07/18/24 07/18/24 07/19/24 15:00 23:00 07:00 Intake Total 11.825 ml 75.68 ml 54.395 ml Output Total 0 ml 0 ml Balance 11.825 ml 75.68 ml 54.395 ml medications Current Medications Medications Dose Ordered Sig/Rey Route Start Time Stop Time Status Last Admin Dose Admin Vancomycin HCl 0 ml @ 0 mls/hr UD IV 07/08/24 17:00 Sodium Chloride 10 ml Q8HR IV 07/09/24 06:00 07/19/24 14:13 10 ML Vasopressin 20 units/Sodium Chloride 100 ml @ 9 mls/hr Q11H7M IV 07/09/24 13:15 07/14/24 08:47 9 MLS/HR Norepinephrine Bitartrate 32 mg/ Sodium Chloride 250 ml @ 0.938 mls/ hr Q24H IV 07/09/24 15:30 07/17/24 08:56 0.938 MLS/HR Phenylephrine HCl 80 mg/Sodium Chloride 250 ml @ 7.5 mls/hr Q24H IV 07/09/24 15:45 07/10/24 08:08 33.75 MLS/HR Diagnostic Test (Pha) 1 strip Q4HR 07/09/24 18:00 07/19/24 14:00 1 STRIP Epinephrine HCl 250 ml @ 7.5 mls/hr Q24H IV 07/09/24 17:00 07/10/24 05:30 7.5 MLS/HR Pantoprazole Sodium 40 mg DAILY IV 07/10/24 10:00 07/19/24 09:01 40 MG Dextrose 50 ml PRN PRN IV 07/10/24 17:45 07/11/24 09:44 50 ML Epoetin Justus-epbx 10,000 unit MWF SC 07/14/24 21:00 07/19/24 10:00 10,000 UNIT Meropenem 50 ml @ 17 mls/hr Q24H IV 07/13/24 22:00 07/18/24 21:35 17 MLS/HR Albumin Human 50 ml @ 100 mls/hr PRN PRN IV 07/13/24 08:30 Cancel Albumin Human 50 ml @ 50 mls/hr PRN PRN IV 07/13/24 08:20 07/19/24 08:35 50 MLS/HR Enteral Nutritional Formula 1,000 ml 30ML/HR GT 07/13/24 12:00 Dexmedetomidine HCl 400 mcg/ Dextrose 100 ml @ 4.73 mls/hr Q21H9M IV 07/15/24 20:00 07/19/24 08:49 7.095 MLS/HR Lactulose 30 ml DAILY PO 07/17/24 10:00 07/18/24 07:57 30 ML Metoclopramide HCl 5 mg Q8HR IV 07/16/24 22:00 07/19/24 06:40 5 MG Propofol 100 ml @ 2.82 mls/hr Q24H IV 07/16/24 21:00 07/17/24 22:35 16.92 MLS/HR Hydrocortisone Sodium Succinate 50 mg Q8H IV 07/17/24 18:00 07/20/24 17:59 07/19/24 09:01 50 MG Albuterol 2.5 mg Q6HR HHN 07/18/24 18:00 07/19/24 11:46 2.5 MG Ipratropium [place] 0.5 mg Q6HR NEB 07/18/24 18:00 07/19/24 11:46 0.5 MG Micafungin Sodium 100 mg/Sodium Chloride 100 ml @ 100 mls/hr DAILY IV 07/20/24 10:00 Hydralazine HCl 10 mg Q4HR PRN IV 07/19/24 15:30 07/19/24 15:26 10 MG Examination: LUNGS:Normal, CVS:Normal, MSK:Normal laboratory and microbiology Laboratory Tests 07/19/24 12:39 07/19/24 03:12 Test 07/19/24 12:39 Range/Units Serum Glucose 145 H 74-106 mg/dL Microbiology Date/Time Source Procedure Growth Status 07/17/24 15:35 Bronchial Washings Gram Stain - Final Resulted 07/17/24 15:35 Bronchial Washings Respiratory Culture - Preliminary Resulted 07/09/24 19:55 Trachea Gram Stain - Final Complete 07/09/24 19:55 Trachea Respiratory Culture - Final Complete 07/08/24 18:00 Blood Blood Culture - Final Escherichia coli - ESBL Complete Problem List/Assessment/Plan Problem List/Assessment/Plan ESRD on HD Acute respiratory failure, extubated 07/18 hyperkalemia, uremic acidosis / lactic acidosis septic shock with gram-negative anabella bacteremia lower extremity wound anemia hypoglycemia recs Continue with UF 2-3 L as tolerated SHAUN with HD Re check K Renal diet will continue to follow Plan discussed with: Patient My Orders My Orders Orders - VAMSI LOPEZ MD Procedure Category Date Status Time Hemodialysis Orders ORDERS 07/19/24 Transmitted 07:06 Epoetin Justus-Epbx PHA 07/19/24 In Process (Retacrit) 21:00 Dietary Evaluation Review Comments: 1) If GI is accessible consider Nepro 1.8 @ 20 ml/hr with current rate of propofol on board 2) If pt remains NPO >7days of NPO status, provide TPN to meet at least 75% of estimated needs 3) Advance pt diet when medically feasible to a Renal Standard diet modified per [employer]OR recommendations Expected Outcomes/Goals: 1) Pt to receive nutrition support within 7 days of NPO status 2) Pt diet to advance 3) F/U in 2-3 days VAMSI LOPEZ MD Jul 19, 2024 15:55
--- NOTE | 2024-07-19 19:25 | DVHPN2 ---
Progress Note - Dictate Date Seen: Jul 19, 2024 Has the PT tested + for MRSA If YES, has PT been informed?: No Medical Necessity Reason Pt with a Central, PICC or Fol: Yes The following are medically ne: Central Line Subjective Patient seen and examined at bedside. Currently on supplemental oxygen Overnight events reviewed vital signs Vital Sign Date Time Temp Pulse Resp B/P (MAP) Pulse Ox O2 Delivery O2 Flow Rate FiO2 07/19/24 18:30 97.7 78 25 144/35 (71) 94 207.9 173/65 (101) 07/19/24 17:57 Nasal Cannula* 4 36 Total Intake and Output 07/18/24 07/18/24 07/19/24 15:00 23:00 07:00 Intake Total 11.825 ml 75.68 ml 54.395 ml Output Total 0 ml 0 ml Balance 11.825 ml 75.68 ml 54.395 ml medications Current Medications Medications Dose Ordered Sig/Rey Route Start Time Stop Time Status Last Admin Dose Admin Vancomycin HCl 0 ml @ 0 mls/hr UD IV 07/08/24 17:00 Sodium Chloride 10 ml Q8HR IV 07/09/24 06:00 07/19/24 14:13 10 ML Vasopressin 20 units/Sodium Chloride 100 ml @ 9 mls/hr Q11H7M IV 07/09/24 13:15 07/14/24 08:47 9 MLS/HR Norepinephrine Bitartrate 32 mg/ Sodium Chloride 250 ml @ 0.938 mls/ hr Q24H IV 07/09/24 15:30 07/17/24 08:56 0.938 MLS/HR Phenylephrine HCl 80 mg/Sodium Chloride 250 ml @ 7.5 mls/hr Q24H IV 07/09/24 15:45 07/10/24 08:08 33.75 MLS/HR Diagnostic Test (Pha) 1 strip Q4HR 07/09/24 18:00 07/19/24 17:15 1 STRIP Epinephrine HCl 250 ml @ 7.5 mls/hr Q24H IV 07/09/24 17:00 07/10/24 05:30 7.5 MLS/HR Pantoprazole Sodium 40 mg DAILY IV 07/10/24 10:00 07/19/24 09:01 40 MG Dextrose 50 ml PRN PRN IV 07/10/24 17:45 07/11/24 09:44 50 ML Epoetin Justus-epbx 10,000 unit MWF SC 07/14/24 21:00 07/19/24 10:00 10,000 UNIT Meropenem 50 ml @ 17 mls/hr Q24H IV 07/13/24 22:00 07/18/24 21:35 17 MLS/HR Albumin Human 50 ml @ 100 mls/hr PRN PRN IV 07/13/24 08:30 Cancel Albumin Human 50 ml @ 50 mls/hr PRN PRN IV 07/13/24 08:20 07/19/24 08:35 50 MLS/HR Enteral Nutritional Formula 1,000 ml 30ML/HR GT 07/13/24 12:00 Dexmedetomidine HCl 400 mcg/ Dextrose 100 ml @ 4.73 mls/hr Q21H9M IV 07/15/24 20:00 07/19/24 08:49 7.095 MLS/HR Lactulose 30 ml DAILY PO 07/17/24 10:00 07/18/24 07:57 30 ML Metoclopramide HCl 5 mg Q8HR IV 07/16/24 22:00 07/19/24 06:40 5 MG Propofol 100 ml @ 2.82 mls/hr Q24H IV 07/16/24 21:00 07/17/24 22:35 16.92 MLS/HR Hydrocortisone Sodium Succinate 50 mg Q8H IV 07/17/24 18:00 07/20/24 17:59 07/19/24 17:13 50 MG Albuterol 2.5 mg Q6HR HHN 07/18/24 18:00 07/19/24 11:46 2.5 MG Ipratropium [place] 0.5 mg Q6HR NEB 07/18/24 18:00 07/19/24 11:46 0.5 MG Micafungin Sodium 100 mg/Sodium Chloride 100 ml @ 100 mls/hr DAILY IV 07/20/24 10:00 Hydralazine HCl 10 mg Q4HR PRN IV 07/19/24 15:30 07/19/24 15:26 10 MG objective Gen.: Patient lying in bed in no apparent distress. On supplemental oxygen. Head: Normocephalic, atraumatic. Eyes: EOMI/PERRLA. Ears: Normal hearing. Normal anatomy. Neck/trachea: Trachea midline, supple. Nose: Normal external anatomy. Mouth: Moist mucous membranes. Chest: Decreased air entry bilaterally. No wheezing or rhonchi. Cardiovascular: Positive S1, positive S2. Regular rate and rhythm. Abdomen: Positive bowel sounds in all 4 quadrants. Soft, non-tender, non- distended. : Deferred. Rectal: Deferred. Skin: Warm, dry. Intact. Extremities: 2+ radial pulses bilaterally. No lower extremity edema. Neuro: Awake, alert. Altered. No gross motor or sensory deficits. Cranial nerves II through XII intact. Gait not assessed. laboratory and microbiology Laboratory Tests 07/19/24 12:39 07/19/24 03:12 Test 07/19/24 12:39 Range/Units Serum Glucose 145 H 74-106 mg/dL Assessment/Plan Impression: Acute hypoxic respiratory failure Pulmonary edema Necrotizing fasciitis Septic shock Morbid obesity Events: Currently on supplemental oxygen 3 LPM NC Taper O2 as tolerated BiPAP PRN. Taper Precedex as tolerated. Patient on Levophed during hemodialysis - monitor hemodynamics CXR reviewed, demonstrates Bibasilar opacities. Left pleural effusion. Hemodialysis per Nephrology - removed 3 liters. Patient is altered. Hemoglobin trending up at 9.6 g/dL Platelet count trending up - 65 K Tube feeds for nutritional support Continue antibiotics Start MIcafungin Sputum cultures showing filamentous fungi Continue IV steroids Taper Solu-Cortef 50 mg q.8 h for 3 days Incentive spirometry Monitor WBC Wound care HD per Nephrology Monitor renal function Monitor electrolytes. Supplement as necessary. Nephrology recommendations appreciated 07/17/24 - S/p therapeutic bronchoscopy w/ RLL BAL - cleared mucous plugging from L6-L10 and R6-R10 See separate procedure note for details. Labs and imaging reviewed. Rest of plan as noted below. Plan: s/p extubation on 07/18/24 Supplemental oxygen BiPAP PRN. Titrate to keep O2 saturations above 92%. Off sedation Continue antibiotics. F/u cultures. Continue IV steroids Pressors if necessary for hemodynamic support Titrate to keep MAP above 65 mmHg/SBP above 90 mmHg. On Levophed during hemodialysis - monitor hemodynamics Monitor renal function Monitor electrolytes. Supplement as necessary. Monitor ins and outs. GI prophylaxis. DVT prophylaxis. Prognosis: Poor given patient's multiple co-morbidities. Condition: Critical Rest of plan per hospitalist and other consultants. A total of 35 minutes of critical care time was spent reviewing the patient record, examining the patient, making a diagnostic and therapeutic plan, discussing this plan with the medical personnel, following up on diagnostic studies and following the patient for clinical stability excluding any and all procedures. At least 50% of this time was spent in direct, [id number] contact. Thank you Dr. Johnson, for allowing me to participate in this patient's care. Further recommendations will depend on the patient's clinical course. Please do not hesitate to contact me if you have any questions or concerns. This medical document was created using an electronic medical record system with [employer] dictation system. Although these documentations are being carefully reviewed, there may still be some phonetic and typographical changes. The errors are purely typographical, due to imperfection on the software program, and do not reflect any compromise in the patient's medical care. Dietary Evaluation Review Comments: 1) If GI is accessible consider Nepro 1.8 @ 20 ml/hr with current rate of propofol on board 2) If pt remains NPO >7days of NPO status, provide TPN to meet at least 75% of estimated needs 3) Advance pt diet when medically feasible to a Renal Standard diet modified per [employer] recommendations Expected Outcomes/Goals: 1) Pt to receive nutrition support within 7 days of NPO status 2) Pt diet to advance 3) F/U in 2-3 days Plan discussed with: Other (JACEK Kurtz/Desirae) Critical Care Time(min): 35 EB DEJESUS MD Jul 19, 2024 19:24
--- NOTE | 2024-07-19 20:14 | DVHINCON2 ---
Date of service: Jul 19, [address] Johnson Reason for Consultation ALOC History of Present Illness Mr. Daniel altered gentleman with a history of hypertension, dyslipidemia, coronary artery disease, kidney cancer status post nephrectomy, kidney failure on hemodialysis, the patient was brought to the [facility]. At that time, the patient was awake, but not able to talk, he may only oriented to himself, the history is obtained from his daughter, nurse and chart review During his hemodialysis on 07/08/2024, the patient was developed chest pain, coughing, and he was brought to the hospital, where the patient was found to have acute respiratory failure and was intubated on 07/09/24, he was also found to have sepsis, septic shock, pneumonia, right leg cellulitis, metabolic acidosis, thrombocytopenia, coagulopathy. With appropriate treatment, the patient was improving, and was extubated on 07/18/2024 Today, the patient was awake, he is able to use head movements on some questions, but he is not able to answer verbally or speak in short sentences He can only move the distal portion of his arms and legs a little bit The patient was told history of dementia or memory problems [phone], answer, but she does not know the password [phone], 1997 Blood culture, 07/08/2024: E coli HIV & II Ab, 07/10/24: Negative ABG, 07/09/2024: Metabolic acidosis, 07/10/2024: Metabolic acidosis, WBC/HB/PLT/MCV, 07/19/2024: 13.1/9.6/65/105.9 PT/INR/PTT, 07/11/2024: 35.6/3.63/38.4, 07/08/2024: 17.4/1.73/34.2 BUN/CR, 07/19/2024: 78/4.54 Lactic acid, 07/11/2024: 12.2 HGB A1c, : 3.8 TBI/AST/ALT/AP, 07/19/2024: 12/212/261/138 Hepatitis panel, : Negative TG/HDL/LDL/HDL, 07/10/2024: 364/60/5/<5 Chest x-ray, 07/08/2024: Bronchovascular crowding. Underlying mild pulmonary vascular congestion can not be excluded Obscuration of the left hemidiaphragm which may be from overlying cardiac silhouette with underlying pleural effusion /atelectasis / pneumonia not excluded. Chest x-ray, 07/09/2024: 1. Left lower lobe opacity may reflect atelectasis or mild pneumonia. 2. Mild interstitial pulmonary edema. 3. Small left pleural effusion. 4. Lines and tubes as above (Endotracheal tube terminates 1.8 cm above the quin) Chest x-ray, 07/17/2024: Endotracheal tube terminates 4.8 cm from the quin. Enteric tube is overlying the plane of the stomach CT head, 07/19/2024: Atrophy. No acute intracranial pathology Past Medical History Dyslipidemia, hypertension, coronary artery disease, kidney cancer, kidney failure on hemodialysis Past Surgical History CABG, nephrectomy Family History: Patient reports no known family medical history. Family History Liver cirrhosis Social History He was tobacco smoke, he was a heavy alcohol drinker, no drug abuse Allergies: Coded Allergies: NO KNOWN ALLERGIES (Unverified , 07/08/24) Home Meds Reported Medications Cholecalciferol (VITAMIN D3) 2,000 Unit Tab, 1 TAB PO DAILY, #30 TAB 5 Refills 07/10/24 Calcium Acetate (Phosphate Bin (Calcium Acetate) 667 Mg Cap, 667 MG PO TIDWM for 30 Days, MG 07/10/24 Sildenafil Citrate (SILDENAFIL CITRATE) 20 Mg Tab, 20 MG PO TID, TAB 07/10/24 Atorvastatin Calcium (ATORVASTATIN CALCIUM) 40 Mg Tab, 1 TAB PO HS 07/10/24 Apixaban Base (ELIQUIS) 5 Mg Tab, 1 TAB PO BID 07/10/24 Hydroxyzine Hcl (Hydroxyzine Hcl) 25 Mg Tab, 1 TAB PO BID PRN for FOR ITCHING 07/10/24 Ranolazine (Ranolazine ER) 500 Mg Tab, 1 TAB PO BID 07/10/24 Allopurinol (Allopurinol) 300 Mg Tab, 300 TAB PO BID 07/10/24 Current Medications Current Medications Medications (Trade) Dose Ordered Sig/Rey Route PRN Reason Start Time Stop Time Status Last Admin Micafungin Sodium 100 mg/Sodium Chloride 100 ml @ 100 mls/hr DAILY IV 07/20/24 10:00 Hydralazine HCl (Apresoline Injection) 10 mg Q4HR PRN IV SBP>150 07/19/24 15:30 07/19/24 15:26 Review of Systems As above, the other systems are negative Vital Signs Vital Signs Date Time Temp Pulse Resp B/P (MAP) Pulse Ox O2 Delivery O2 Flow Rate FiO2 07/19/24 18:30 97.7 78 25 144/35 (71) 94 207.9 173/65 (101) 07/19/24 17:57 Nasal Cannula* 4 36 Physical Exam GENERAL EXAM: General: the patient is well developed and nourished. No acute distress. HEENT: Normocephalic, neck is supple, no carotid bruits. No mass. RESPIRATORY: Normal respiratory effort with symmetrical lung expansion. Lungs clear to auscultation. CARDIOVASCULAR: Regular rate and rhythm with no murmurs. S1, S2. ABDOMEN: Soft, nontender, normal bowel sound Edema, especially in the left arm extremity NEUROLOGICAL: MENTAL STATUS: HPI SPEECH, LANGUAGE, HIGHER CORTICAL FUNCTION: He understand some verbal commands, he can not talk CRANIAL NERVES: #2: Intact visual lin to confrontation. #3,4,6: Pupils are equal, round and reactive. EOMs full and conjugate. #5: Facial sensation intact in all three divisions bilaterally. Mandibular strength intact. #7: Facial muscles symmetrical and strength intact. #8: Hearing grossly normal to voice. #9,10: Deferred #11: Deferred #12: Tongue midline. No fasciculations or atrophy. SENSATION: Sensation to touch and pinprick is ok MOTOR: Normal tone in the upper and lower extremity. Normal muscle bulk. No fasciculations. No abnormal movements or posturing. He Can only move the feet and hands, muscle power feels 2/5 REFLEXES: Deep tendon reflexes are symmetrical. No pathological reflexes. CEREBELLAR/COORDINATION: Deferred GAIT/STATION: deferred. Labs/Diagnostic Data Labs Test 07/19/24 17:14 07/19/24 15:47 07/19/24 12:39 07/19/24 03:12 Range/Units POC Glucose 148 H 70-106 mg/dl Miscellaneous Referred Test (Rm Tmp Sent to [facility] Sodium Level 138 # 136-145 mmol/L Potassium Level 4.7 3.5-5.1 mmol/L Chloride Level 97 L 98-107 mmol/L Carbon Dioxide Level 24 20-31 mmol/L Anion Gap 17 H 5-15 Blood Urea Nitrogen 78 #H 9-23 mg/dL Creatinine 4.54 H 0.700-1.30 mg/dL Glomerular Filtration Rate Calc 14 >90 mL/min BUN/Creatinine Ratio 17.2 10.0-20.0 Serum Glucose 145 H 74-106 mg/dL Calcium Level 6.5 L 8.7-10.4 mg/dL White Blood Count 13.1 H 4.4-10.8 10^3/uL Red Blood Count 2.72 L 4.5-5.90 10^6/uL Hemoglobin 9.6 L 13.5-17.5 g/dL Hematocrit 28.8 #L 41.0-53.0 % Mean Corpuscular Volume 105.9 H 80.0-100.0 fL Mean Corpuscular Hemoglobin 35.4 H 28.0-32.0 pg Mean Corpuscular Hemoglobin Concent 33.4 32.0-36.0 g/dL Red Cell Distribution Width 19.0 H 11.8-14.3 % Platelet Count 65 L 140-450 10^3/uL Mean Platelet Volume 10.7 6.9-10.8 fL Neutrophils (%) (Auto) 90.3 H 37.0-80.0 % Lymphocytes (%) (Auto) 2.6 L 10.0-50.0 % Monocytes (%) (Auto) 6.8 0.0-12.0 % Eosinophils (%) (Auto) 0.0 0.0-7.0 % Basophils (%) (Auto) 0.3 0.0-2.0 % Neutrophils # (Auto) 11.9 H 1.6-8.6 10 ^3/uL Lymphocytes # (Auto) 0.3 L 0.4-5.4 10 ^3/uL Monocytes # (Auto) 0.9 0-1.3 10 ^3/uL Eosinophils # (Auto) 0 0-0.8 10 ^3/uL Basophils # (Auto) 0 0-0.2 10 ^3/uL Nucleated Red Blood Cells 0.2 % Phosphorus Level 11.4 H 2.4-5.1 mg/dL Magnesium Level 3.2 H 1.6-2.6 mg/dL Total Bilirubin 12.0 H 0.2-1.0 mg/dL Aspartate Amino Transferase (AST) 212 H 13-40 U/L Alanine Aminotransferase (ALT) 261 H 7-40 U/L Alkaline Phosphatase 138 H 46-116 U/L Total Protein 6.3 5.7-8.2 g/dL Albumin 3.5 3.2-4.8 g/dL Random Vancomycin Level 20.9 H 5-10 ug/mL Test 07/18/24 14:38 07/18/24 09:23 07/18/24 07:07 07/18/24 03:48 Range/Units Blood Gas Specimen Type Arterial Blood Gas Sample Site Arterial line Blood Gas Patient Temperature 37.0 Arterial Blood Date Drawn [id number] Arterial Blood pH 7.428 7.350-7.450 Arterial Blood Partial Pressure CO2 31.5 L 35.0-48.0 mmHg Arterial Blood Partial Pressure O2 70.8 L 83.0-108.0 mmHg Arterial Blood HCO3 20.3 L 21.0-28.0 mmol/L Arterial Blood Oxygen Saturation 91.4 L 94.0-98.0 % Arterial Blood Base Excess -3.3 L -2.0-3.0 mmol/L Arterial Blood Oxyhemoglobin 90.9 L 94.0-98.0 % Arterial Blood Carboxyhemoglobin 0.3 L 0.5-1.5 % Arterial Blood Methemoglobin 0.3 0.0-1.5 % Tima Test Modified Blood Gas Total Hemoglobin 9.90 L 13.5-17.5 g/dL Blood Gas Set Respiration Rate 12.0 Blood Gas Modality Mask - bipap Blood Gas Spontaneous Rate 24 FiO2 % 30.0 Blood Gas PEEP or CPAP 7.0 Blood Gas EPAP 5 Blood Gas IPAP 12 Specimen Drawn By lisa rt Blood Gas Spontaneous Tidal Volume 916 Blood Gas Inspiratory Pressure 19.0 Bl Gas Inspiratory/Expiratory Ratio 1:2.2 Blood Gas Tidal Volume 400.0 Prothrombin Time 17.4 H 9.3-11.8 sec Prothrombin Time INR 1.73 H 0.9-1.15 Activated Partial Thromboplast Time 34.2 24.5-34.5 SEC Test 07/17/24 14:23 07/17/24 09:26 07/14/24 03:08 07/13/24 03:50 Range/Units Blood Gas Comments Blood Gas Critical Value Read Back Yes Blood Gas Notified Whom basilio Bermudez md Blood Gas Notified Time [id number] Blood Gas Notified By nadya Parrish rrt Differential Total Cells Counted 100.0 100 Neutrophils % (Manual) 84 H 37.0-80.0 Band Neutrophils % (Manual) 12 Lymphocytes % (Manual) 3 L 10.0-50.0 Monocytes % (Manual) 0 0-12 Eosinophils % (Manual) 0 0-7 Basophils % (Manual) 0 0.0-2.0 Metamyelocytes % (manual) 0 Myelocytes % (Manual) 1 Promyelocytes % (Manual) 0 Blast Cells % (Manual) 0 Reactive Lymphocytes 0 Platelet Estimate Decreased Large Platelets Few Anisocytosis (manual) Slight Macrocytosis Moderate Tear Drop Cells Moderate Stomatocytes Few Schistocytes Few Iron Level 136 65-175 ug/dL Total Iron Binding Capacity 186 L 250-425 ug/dL Percent Iron Saturation 73.1 H 20-55 % Ferritin > 01344.0 H 22-322 ng/mL Test 07/11/24 13:02 07/11/24 03:26 07/10/24 22:02 07/10/24 19:58 Range/Units Lactic Acid Level 12.2 *H 0.4-2.0 mmol/L Smudge Cells 2 /100 WBC Fibrinogen 433 H 177-375 mg/dL D-Dimer, Quantitative 11.78 H 0.0-0.49 mg/L FEU Haptoglobin 212 29-370 mg/dL Lactate Dehydrogenase > 4500 H 120-246 U/L HIV (1&2) Antibody Negative Negative Test 07/10/24 10:11 07/10/24 04:01 07/09/24 16:30 07/09/24 16:27 Range/Units Microcytosis Slight Ovalocytes Few Elizabeth Cells Few Hemoglobin A1c < 3.8 <5.7 % A1C Triglycerides Level 364 H < 150 mg/dL Cholesterol Level 60 < 200 mg/dL LDL Cholesterol 5 < 100 mg/dL HDL Cholesterol < 5 L 40-59 mg/dL Thyroid Stimulating Hormone (TSH) 0.33 L 0.55-4.78 uIU/mL B-Type Natriuretic Peptide > 5000.00 0-100 pg/mL Hepatitis A IgM Antibody Negative Hepatitis B Surface Antigen Negative Negative Hepatitis B Core IgM Antibody Negative Negative Hepatitis C Antibody Negative Negative Blood Gas Liter Flow 2.00 Test 07/08/24 17:54 07/08/24 15:22 1/9/25 15:07 Range/Units Troponin I High Sensitivity 33 </=54 ng/L Creatine Kinase 114 46-171 U/L Influenza Type A Antigen Negative Negative Influenza Type B Antigen Negative Negative SARS-CoV-2 Antigen (Rapid) Negative NEGATIVE Microbiology Date/Time Source Procedure Growth Status 07/17/24 15:35 Bronchial Washings Gram Stain - Final Resulted 07/17/24 15:35 Bronchial Washings Respiratory Culture - Preliminary Resulted 07/09/24 19:55 Trachea Gram Stain - Final Complete 07/09/24 19:55 Trachea Respiratory Culture - Final Complete 07/08/24 18:00 Blood Blood Culture - Final Escherichia coli - ESBL Complete Assessment Altered mental status, improving Metabolic encephalopathy Hypoxic encephalopathy Toxic encephalopathy Respiratory failure Sepsis/septic shock Pneumonia Cellulitis Metabolic acidosis Coagulopathy Elevated liver function test Thrombocytopenia Macrocytic anemia ICU myopathy Plan/Recommendation Monitoring Supportive treatment ICU care Vitamin B12, folic acid CPK EEG MR brain scan later Oxygen Antibiotics GI prophylaxis/pantoprazole Infectious disease on case Pulmonary on case Cardiology on case Nephrology on case More recommendation per clinical course Prognosis: Critical Critical care time spent is 45 minutes This medical document was created using an electronic medical record system with [employer] computerized dictation system. Although this document has been carefully reviewed, there may still be some phonetic and typographical errors. These areas are purely typographical due to imperfections of the software programs, and do not reflect any compromise in the patient's medical care. Plan discussed with: Daughter, Other SUMIT SANTAMARIA MD Jul 19, 2024 20:14
[2024-07-19] MEDS ORDERED: EPOETIN ALFA-EPBX 10,000 UNIT/1ML VIAL SC ONE (21:00)
[2024-07-19 22:01] LABS: Folate (Folic Acid) 9.12 ng/mL (>5.38)
[2024-07-20] VITALS (105 sets, daily range): BP systolic 119–184; BP diastolic 21–99; PULSE 69–85; RESP 14–32; TEMP 97.2–98.6; O2SAT 94–99
[2024-07-20 03:51] LABS: Eosinophils # (auto) 0 10 ^3/uL (0-0.8); Hemoglobin 9.6 g/dL (13.5-17.5); Neutrophils # (auto) 8.6 10 ^3/uL (1.6-8.6); Platelet Count (auto) 68 10^3/uL (140-450)
[2024-07-20 03:53] LABS: Basophils # (auto) 0.1 10 ^3/uL (0-0.2); Basophils % (auto) 0.6 % (0.0-2.0); Hematocrit 28.5 % (41.0-53.0); Lymphocytes # (auto) 0.3 10 ^3/uL (0.4-5.4); Lymphocytes % (auto) 3.4 % (10.0-50.0); Mean Corpuscular Hemoglobin 36.2 pg (28.0-32.0); Mean Corpuscular Hgb Conc. 33.7 g/dL (32.0-36.0); Mean Corpuscular Volume 107.3 fL (80.0-100.0); Monocytes # (auto) 0.7 10 ^3/uL (0-1.3); Nucleated Red Blood Cells % 0.2 %; Red Blood Cells 2.66 10^6/uL (4.5-5.90); White Blood Cell 9.6 10^3/uL (4.4-10.8)
[2024-07-20 03:56] LABS: Red Cell Distribution Width 22.2 % (11.8-14.3)
[2024-07-20 04:02] LABS: Albumin 3.4 g/dL (3.2-4.8); Anion Gap 18 (5-15); Carbon Dioxide 23 mmol/L (20-31); Sodium 138 mmol/L (136-145)
[2024-07-20 04:03] LABS: Total Protein 6.1 g/dL (5.7-8.2)
[2024-07-20 04:09] LABS: Alanine Aminotransferase 209 U/L (7-40); Alkaline Phosphatase 129 U/L (46-116); Aspartate Aminotransferase 192 U/L (13-40); BUN/Creatinine Ratio 17.1 (10.0-20.0); Bilirubin, Total 11.2 mg/dL (0.2-1.0); Calcium 6.1 mg/dL (8.7-10.4); Chloride 97 mmol/L (98-107); Glucose 150 mg/dL (74-106); Magnesium 2.8 mg/dL (1.6-2.6); Phosphorus 8.5 mg/dL (2.4-5.1); Potassium 5.3 mmol/L (3.5-5.1)
[2024-07-20 04:10] LABS: Blood Urea Nitrogen 92 mg/dL (9-23)
--- NOTE | 2024-07-20 05:18 | DVH ---
CHEST RADIOGRAPH Indication: pneumonia Technique: Single frontal view of the chest was obtained COMPARISON: XY CHEST PORTABLE on DOS: 07/19/24, XY CHEST PORTABLE on DOS: 07/18/24, XY CHEST PORTABLE o n DOS: 07/18/24, XY CHEST PORTABLE on DOS: 07/17/24, XY CHEST PORTABLE on DOS: 07/17/24 FINDINGS: Lines and Tubes: Enteric catheter in satisfactory position. Median sternotomy. Lungs: Multifocal airspace disease. Pleura: No effusion. No pneumothorax. Cardiomediastinal contours: Unremarkable Bones: Unremarkable IMPRESSION: Slightly improved aeration.
--- NOTE | 2024-07-20 09:10 | DVHPN2 ---
Progress Note - Dictate Date Seen: Jul 20, 2024 Has the PT tested + for MRSA If YES, has PT been informed?: No Medical Necessity Reason Pt with a Central, PICC or Fol: Yes The following are medically ne: Central Line Subjective Mr. Daniel altered gentleman with a history of hypertension, dyslipidemia, coronary artery disease, kidney cancer status post nephrectomy, kidney failure on hemodialysis, the patient was brought to the [facility]. I have seen and examined the patient, I have discussed with his nurse, in the room, and I have discussed with her about patient condition without bilingual staff's interpretation The patient was bed, he was more interactive, follows, he can move the arms and legs better, edema in the extremities is better Blood culture, 07/08/2024: E coli HIV & II Ab, 07/10/24: Negative ABG, 07/09/2024: Metabolic acidosis, 07/10/2024: Metabolic acidosis, WBC/HB/PLT/MCV, 07/19/2024: 13.1/9.6/65/105.9 PT/INR/PTT, 07/11/2024: 35.6/3.63/38.4, 07/08/2024: 17.4/1.73/34.2 BUN/CR, 07/19/2024: 78/4.54 07/20/2024: 92/5.37 Lactic acid, 07/11/2024: 12.2 HGB A1c, : 3.8 CPK 07/08/2019 5:114, 07/19/2024: 1579 TBI/AST/ALT/AP, 07/19/2024: 12/212/261/138 Hepatitis panel, : Negative TG/HDL/LDL/HDL, 07/10/2024: 364/60/5/<5 Vitamin B12, 07/19/2024: >4000 Folic acid 07/19/2024: 9.12 TSH, 07/10/2024: 0.33 Chest x-ray, 07/08/2024: Bronchovascular crowding. Underlying mild pulmonary vascular congestion can not be excluded Obscuration of the left hemidiaphragm which may be from overlying cardiac silhouette with underlying pleural effusion /atelectasis / pneumonia not excluded. Chest x-ray, 07/09/2024: 1. Left lower lobe opacity may reflect atelectasis or mild pneumonia. 2. Mild interstitial pulmonary edema. 3. Small left pleural effusion. 4. Lines and tubes as above (Endotracheal tube terminates 1.8 cm above the quin) Chest x-ray, 07/17/2024: Endotracheal tube terminates 4.8 cm from the quin. Enteric tube is overlying the plane of the stomach CT head, 07/19/2024: Atrophy. No acute intracranial pathology vital signs Vital Sign Date Time Temp Pulse Resp B/P (MAP) Pulse Ox O2 Delivery O2 Flow Rate FiO2 07/20/24 08:00 24 96 Bi-Pap+ 30 30 07/20/24 07:21 80 07/20/24 07:16 4.0 07/20/24 05:30 136/34 (68) 151/57 (88) 07/20/24 04:00 98.6 98.6 Total Intake and Output 07/19/24 07/19/24 07/20/24 15:00 23:00 07:00 Intake Total 52.030 ml 121.285 ml 1.1825 ml Output Total 0 ml Balance 52.030 ml 121.285 ml 1.1825 ml medications Current Medications Medications Dose Ordered Sig/Rey Route Start Time Stop Time Status Last Admin Dose Admin Vancomycin HCl 0 ml @ 0 mls/hr UD IV 07/08/24 17:00 Sodium Chloride 10 ml Q8HR IV 07/09/24 06:00 07/20/24 06:00 10 ML Vasopressin 20 units/Sodium Chloride 100 ml @ 9 mls/hr Q11H7M IV 07/09/24 13:15 07/14/24 08:47 9 MLS/HR Norepinephrine Bitartrate 32 mg/ Sodium Chloride 250 ml @ 0.938 mls/ hr Q24H IV 07/09/24 15:30 07/17/24 08:56 0.938 MLS/HR Phenylephrine HCl 80 mg/Sodium Chloride 250 ml @ 7.5 mls/hr Q24H IV 07/09/24 15:45 07/10/24 08:08 33.75 MLS/HR Diagnostic Test (Pha) 1 strip Q4HR 07/09/24 18:00 07/20/24 06:44 1 STRIP Epinephrine HCl 250 ml @ 7.5 mls/hr Q24H IV 07/09/24 17:00 07/10/24 05:30 7.5 MLS/HR Pantoprazole Sodium 40 mg DAILY IV 07/10/24 10:00 07/19/24 09:01 40 MG Dextrose 50 ml PRN PRN IV 07/10/24 17:45 07/11/24 09:44 50 ML Epoetin Justus-epbx 10,000 unit MWF SC 07/14/24 21:00 07/19/24 10:00 10,000 UNIT Meropenem 50 ml @ 17 mls/hr Q24H IV 07/13/24 22:00 07/19/24 21:38 17 MLS/HR Albumin Human 50 ml @ 100 mls/hr PRN PRN IV 07/13/24 08:30 Cancel Albumin Human 50 ml @ 50 mls/hr PRN PRN IV 07/13/24 08:20 07/19/24 08:35 50 MLS/HR Enteral Nutritional Formula 1,000 ml 30ML/HR GT 07/13/24 12:00 Dexmedetomidine HCl 400 mcg/ Dextrose 100 ml @ 4.73 mls/hr Q21H9M IV 07/15/24 20:00 07/19/24 08:49 7.095 MLS/HR Lactulose 30 ml DAILY PO 07/17/24 10:00 07/18/24 07:57 30 ML Metoclopramide HCl 5 mg Q8HR IV 07/16/24 22:00 07/20/24 06:43 5 MG Propofol 100 ml @ 2.82 mls/hr Q24H IV 07/16/24 21:00 07/17/24 22:35 16.92 MLS/HR Hydrocortisone Sodium Succinate 50 mg Q8H IV 07/17/24 18:00 07/20/24 17:59 07/20/24 02:53 50 MG Albuterol 2.5 mg Q6HR HHN 07/18/24 18:00 07/20/24 07:16 2.5 MG Ipratropium [place] 0.5 mg Q6HR NEB 07/18/24 18:00 07/20/24 07:15 0.5 MG Micafungin Sodium 100 mg/Sodium Chloride 100 ml @ 100 mls/hr DAILY IV 07/20/24 10:00 Hydralazine HCl 10 mg Q4HR PRN IV 07/19/24 15:30 07/19/24 21:42 10 MG objective General: the patient is well developed and nourished. No acute distress. MENTAL STATUS: Subjective SPEECH, LANGUAGE, HIGHER CORTICAL FUNCTION: Understand CRANIAL NERVES: Pupils are equal, round and reactive. EOMs full and conjugate.Facial sensation intact in all three divisions bilaterally. Mandibular strength intact. Facial muscles symmetrical and strength intact. SENSATION: Sensation to touch and pinprick is ok MOTOR: Normal tone in the upper and lower extremity. Normal muscle bulk. No fasciculations. No abnormal movements or posturing. He can move the whole bilateral upper extremities, with gripping stronger, he moves both feet, right leg REFLEXES: Deep tendon reflexes are symmetrical. No pathological reflexes. CEREBELLAR/COORDINATION: Deferred GAIT/STATION: deferred laboratory and microbiology Laboratory Tests 07/20/24 03:05 Test 07/20/24 03:05 Range/Units Serum Glucose 150 H 74-106 mg/dL Problem List Altered mental status, improving Metabolic encephalopathy Hypoxic encephalopathy Toxic encephalopathy Respiratory failure Sepsis/septic shock Pneumonia Cellulitis Metabolic acidosis Coagulopathy Elevated liver function test Thrombocytopenia Macrocytic anemia ICU myopathy Assessment/Plan Monitoring Supportive treatment ICU care EEG MR brain scan later Stabilize vitals Respiratory support/BiPAP Oxygen Antibiotics GI prophylaxis/pantoprazole Infectious disease on case Pulmonary on case Cardiology on case Nephrology on case More recommendation per clinical course This medical document was created using an electronic medical record system with [employer] dictation system. Although this document has been carefully reviewed, there may still be some phonetic and typographical errors. These areas are purely typographical due to imperfections of the software programs, and do not reflect any compromise in the patient's medical care Prognosis Critical, poor Dietary Evaluation Review Comments: 1) If GI is accessible consider Nepro 1.8 @ 20 ml/hr with current rate of propofol on board 2) If pt remains NPO >7days of NPO status, provide TPN to meet at least 75% of estimated needs 3) Advance pt diet when medically feasible to a Renal Standard diet modified per [employer] CONSERVATOR recommendations Expected Outcomes/Goals: 1) Pt to receive nutrition support within 7 days of NPO status 2) Pt diet to advance 3) F/U in 2-3 days Plan discussed with: Spouse, Other Critical Care Time(min): 35 SUMIT SANTAMARIA MD Jul 20, 2024 09:10
--- NOTE | 2024-07-20 09:29 | DVHPN2 ---
Subjective More alert On BiPAP Follows commands Reviewed: Care Plan, H&P, Labs, Medications Changes from previous H/P or p: Changes General: Per HPI Eyes: No Pain, No Vision change, No Conjunctivae inflammation, No Eyelid inflammation, No Other, No Redness ENT: No Ear pain, No Ear discharge, No Nose pain, No Nose discharge, No Nose congestion, No Mouth pain, No Mouth swelling, No Throat pain, No Throat swelling, No Other Cardiovascular: Chest Pain Respiratory: Cough Gastrointestinal: No Nausea, No Vomiting, No Abdominal Pain, No Diarrhea, No Constipation, No Melena, No Hematochezia, No Other Genitourinary: No Dysuria, No Frequency, No Incontinence, No Hematuria, No Retention, No Other Musculoskeletal: other, leg pain Skin: Other Objective Vitals Vital Signs Date Time Temp Pulse Resp B/P (MAP) Pulse Ox O2 Delivery O2 Flow Rate FiO2 07/20/24 08:00 24 96 Bi-Pap+ 30 30 07/20/24 07:21 80 07/20/24 07:16 4.0 07/20/24 05:30 136/34 (68) 151/57 (88) 07/20/24 04:00 98.6 98.6 Intake/Output Intake and Output 07/20/24 07:00 Intake Total 174.4975 ml Output Total 0 ml Balance 174.4975 ml IV Total 174.4975 ml Output Urine Total 0 ml General Appearance: Alert, Other HEENT: PERRLA Lungs: Other (Rhonchi and crackles) Cardiovascular: Regular rate, Normal S1, Normal S2 Abdomen: Normal bowel sounds, Soft, No tenderness Musculoskeletal: Other (No motor movement) Neuro: Other (Unable to assess) Skin: Wounds (See nurse notes and pictures) Psych/Mental Status: Other (Unable to assess) Medications Current Medications Medications Dose Ordered Sig/Rey Route Start Time Stop Time Status Last Admin Dose Admin Vancomycin HCl 0 ml @ 0 mls/hr UD IV 07/08/24 17:00 Sodium Chloride 10 ml Q8HR IV 07/09/24 06:00 07/20/24 06:00 10 ML Vasopressin 20 units/Sodium Chloride 100 ml @ 9 mls/hr Q11H7M IV 07/09/24 13:15 07/14/24 08:47 9 MLS/HR Norepinephrine Bitartrate 32 mg/ Sodium Chloride 250 ml @ 0.938 mls/ hr Q24H IV 07/09/24 15:30 07/17/24 08:56 0.938 MLS/HR Phenylephrine HCl 80 mg/Sodium Chloride 250 ml @ 7.5 mls/hr Q24H IV 07/09/24 15:45 07/10/24 08:08 33.75 MLS/HR Diagnostic Test (Pha) 1 strip Q4HR 07/09/24 18:00 07/20/24 06:44 1 STRIP Epinephrine HCl 250 ml @ 7.5 mls/hr Q24H IV 07/09/24 17:00 07/10/24 05:30 7.5 MLS/HR Pantoprazole Sodium 40 mg DAILY IV 07/10/24 10:00 07/19/24 09:01 40 MG Dextrose 50 ml PRN PRN IV 07/10/24 17:45 07/11/24 09:44 50 ML Epoetin Justus-epbx 10,000 unit MWF SC 07/14/24 21:00 07/19/24 10:00 10,000 UNIT Meropenem 50 ml @ 17 mls/hr Q24H IV 07/13/24 22:00 07/19/24 21:38 17 MLS/HR Albumin Human 50 ml @ 100 mls/hr PRN PRN IV 07/13/24 08:30 Cancel Albumin Human 50 ml @ 50 mls/hr PRN PRN IV 07/13/24 08:20 07/19/24 08:35 50 MLS/HR Enteral Nutritional Formula 1,000 ml 30ML/HR GT 07/13/24 12:00 Dexmedetomidine HCl 400 mcg/ Dextrose 100 ml @ 4.73 mls/hr Q21H9M IV 07/15/24 20:00 07/19/24 08:49 7.095 MLS/HR Lactulose 30 ml DAILY PO 07/17/24 10:00 07/18/24 07:57 30 ML Metoclopramide HCl 5 mg Q8HR IV 07/16/24 22:00 07/20/24 06:43 5 MG Propofol 100 ml @ 2.82 mls/hr Q24H IV 07/16/24 21:00 07/17/24 22:35 16.92 MLS/HR Hydrocortisone Sodium Succinate 50 mg Q8H IV 07/17/24 18:00 07/20/24 17:59 07/20/24 02:53 50 MG Albuterol 2.5 mg Q6HR HHN 07/18/24 18:00 07/20/24 07:16 2.5 MG Ipratropium [place] 0.5 mg Q6HR NEB 07/18/24 18:00 07/20/24 07:15 0.5 MG Micafungin Sodium 100 mg/Sodium Chloride 100 ml @ 100 mls/hr DAILY IV 07/20/24 10:00 Hydralazine HCl 10 mg Q4HR PRN IV 07/19/24 15:30 07/19/24 21:42 10 MG Laboratory Results Laboratory Tests 07/20/24 03:05 Chemistry Test 07/19/24 12:39 07/20/24 03:05 Calcium Level 6.5 mg/dL (8.7-10.4) L 6.1 mg/dL (8.7-10.4) L Albumin 3.4 g/dL (3.2-4.8) Magnesium Level 2.8 mg/dL (1.6-2.6) H Phosphorus Level 8.5 mg/dL (2.4-5.1) H Total Protein 6.1 g/dL (5.7-8.2) LFT Test 07/20/24 03:05 Alanine Aminotransferase (ALT) 209 U/L (7-40) H Alkaline Phosphatase 129 U/L (46-116) H Aspartate Amino Transferase (AST) 192 U/L (13-40) H Total Bilirubin 11.2 mg/dL (0.2-1.0) H Microbiology Microbiology Date/Time Source Procedure Growth Status 07/17/24 15:35 Bronchial Washings Gram Stain - Final Resulted 07/17/24 15:35 Bronchial Washings Respiratory Culture - Preliminary Resulted 07/09/24 19:55 Trachea Gram Stain - Final Complete 07/09/24 19:55 Trachea Respiratory Culture - Final Complete 07/08/24 18:00 Blood Blood Culture - Final Escherichia coli - ESBL Complete Assessment/Plan Assessment/Plan Severe sepsis with septic shock due to bacteremia with E. coli ESBL Bacteremia with E. coli ESBL Right leg infection / cellulitis: Better Metabolic acidosis: Better with HD ESRD on HD h/o kidney CA s/p nephrectomy Hyperkalemia: resolved Thrombocytopenia Coagulopathy LLL atelectasis and effusion CAD Mixed hyperlipidemia DM2 Obesity Hypoglycemia PLAN: 07/14/2024: Continue IV antibiotics: Meropenem and Vanco Vasopressors prn Tube feeding D%W for hypoglycemia, DC once tolerating feeding IV hydrocortisone Taper sedation as tolerated HD per nephrology Vascular surgery (Dr. Mcbride) is following ID consult 07/15/24: HD per nephrology Taper sedation as tolerated Taper down Levophed as tolerated Tube feeding DC IV fluids IV antibiotics Monitor closely 07/17/24: Hypocalcemia: Replace Ca++ IV Hypoalbuminemia: Albumin IV ESRD: HD per nephrology Sepsis: IV antibiotics Resp failure: C-PAP Constipation: Lactulose Tube feeding Thrombocytopenia: stable Transaminitis: Better Discussed with family at the bedside 07/18/24: C-PAP LUE doppler rule out DVT Extubation per Dr. Bermudez Meropenem and Vancomycin 07/19/2024: Hemodialysis per nephrology Monitor closely We will have to discuss the advance directives with the family again today 1 day come The patient is still confused and edematous Ultrasound of the left arm showed no DVT 07/20/24: CT head: Neg BiPAP prn HD per nephrology Off Levophed Meropenem Micafungin Vancomycin Neurology consult Plan discussed with: Patient, Spouse My Orders Orders - DG AQUINO MD Procedure Category Date Status Time Head Without Contrast CT 07/19/24 Resulted 13:48 * Neurology Consult CONS 07/19/24 Transmitted 13:48 Micafungin Sodium PHA 07/20/24 In Process (Mycamine) 10:00 Hydralazine Injection PHA 07/19/24 In Process (Apresoline Inject 15:30 Chest Portable XY 07/20/24 Resulted 04:00 Date of Service: Jul 20, 2024 Billing Provider: DG AQUINO MD Common Visit Codes: NOT BILLABLE DG AQUINO MD Jul 20, 2024 09:29
--- NOTE | 2024-07-20 09:54 | DVHPN2 ---
Progress Note Date Seen: Jul 20, 2024 Has the PT tested + for MRSA If YES, has PT been informed?: No Medical Necessity Reason Pt with a Central, PICC or Fol: Yes The following are medically ne: Central Line Subjective Review of Systems: RESPIRATORY:Abnormal Other Systems: Patient seen and examined by myself today in follow-up Objective vital signs Vital Sign Date Time Temp Pulse Resp B/P (MAP) Pulse Ox O2 Delivery O2 Flow Rate FiO2 07/20/24 08:00 24 96 Bi-Pap+ 30 30 07/20/24 07:21 80 07/20/24 07:16 4.0 07/20/24 05:30 136/34 (68) 151/57 (88) 07/20/24 04:00 98.6 98.6 Total Intake and Output 07/19/24 07/19/24 07/20/24 15:00 23:00 07:00 Intake Total 52.030 ml 121.285 ml 1.1825 ml Output Total 0 ml Balance 52.030 ml 121.285 ml 1.1825 ml medications Current Medications Medications Dose Ordered Sig/Rey Route Start Time Stop Time Status Last Admin Dose Admin Vancomycin HCl 0 ml @ 0 mls/hr UD IV 07/08/24 17:00 Sodium Chloride 10 ml Q8HR IV 07/09/24 06:00 07/20/24 06:00 10 ML Vasopressin 20 units/Sodium Chloride 100 ml @ 9 mls/hr Q11H7M IV 07/09/24 13:15 07/14/24 08:47 9 MLS/HR Norepinephrine Bitartrate 32 mg/ Sodium Chloride 250 ml @ 0.938 mls/ hr Q24H IV 07/09/24 15:30 07/17/24 08:56 0.938 MLS/HR Phenylephrine HCl 80 mg/Sodium Chloride 250 ml @ 7.5 mls/hr Q24H IV 07/09/24 15:45 07/10/24 08:08 33.75 MLS/HR Diagnostic Test (Pha) 1 strip Q4HR 07/09/24 18:00 07/20/24 06:44 1 STRIP Epinephrine HCl 250 ml @ 7.5 mls/hr Q24H IV 07/09/24 17:00 07/10/24 05:30 7.5 MLS/HR Pantoprazole Sodium 40 mg DAILY IV 07/10/24 10:00 07/19/24 09:01 40 MG Dextrose 50 ml PRN PRN IV 07/10/24 17:45 07/11/24 09:44 50 ML Epoetin Justus-epbx 10,000 unit MWF SC 07/14/24 21:00 07/19/24 10:00 10,000 UNIT Meropenem 50 ml @ 17 mls/hr Q24H IV 07/13/24 22:00 07/19/24 21:38 17 MLS/HR Albumin Human 50 ml @ 100 mls/hr PRN PRN IV 07/13/24 08:30 Cancel Albumin Human 50 ml @ 50 mls/hr PRN PRN IV 07/13/24 08:20 07/19/24 08:35 50 MLS/HR Enteral Nutritional Formula 1,000 ml 30ML/HR GT 07/13/24 12:00 Dexmedetomidine HCl 400 mcg/ Dextrose 100 ml @ 4.73 mls/hr Q21H9M IV 07/15/24 20:00 07/19/24 08:49 7.095 MLS/HR Lactulose 30 ml DAILY PO 07/17/24 10:00 07/18/24 07:57 30 ML Metoclopramide HCl 5 mg Q8HR IV 07/16/24 22:00 07/20/24 06:43 5 MG Propofol 100 ml @ 2.82 mls/hr Q24H IV 07/16/24 21:00 07/17/24 22:35 16.92 MLS/HR Hydrocortisone Sodium Succinate 50 mg Q8H IV 07/17/24 18:00 07/20/24 17:59 07/20/24 02:53 50 MG Albuterol 2.5 mg Q6HR HHN 07/18/24 18:00 07/20/24 07:16 2.5 MG Ipratropium [place] 0.5 mg Q6HR NEB 07/18/24 18:00 07/20/24 07:15 0.5 MG Micafungin Sodium 100 mg/Sodium Chloride 100 ml @ 100 mls/hr DAILY IV 07/20/24 10:00 Hydralazine HCl 10 mg Q4HR PRN IV 07/19/24 15:30 07/19/24 21:42 10 MG Examination: LUNGS:Normal, CVS:Normal, MSK:Normal laboratory and microbiology Laboratory Tests 07/20/24 03:05 Test 07/20/24 03:05 Range/Units Serum Glucose 150 H 74-106 mg/dL Microbiology Date/Time Source Procedure Growth Status 07/17/24 15:35 Bronchial Washings Gram Stain - Final Resulted 07/17/24 15:35 Bronchial Washings Respiratory Culture - Preliminary Resulted 07/09/24 19:55 Trachea Gram Stain - Final Complete 07/09/24 19:55 Trachea Respiratory Culture - Final Complete 07/08/24 18:00 Blood Blood Culture - Final Escherichia coli - ESBL Complete Problem List/Assessment/Plan Problem List/Assessment/Plan ESRD on HD Acute respiratory failure, extubated 07/18 hyperkalemia, uremic acidosis / lactic acidosis septic shock with gram-negative anabella bacteremia lower extremity wound anemia hypoglycemia Left pleural effusion Recommendations Hemodialysis again today with increased UF Epogen 83868 IV post hemodialysis Re check K Renal diet Thoracentesis will continue to follow Plan discussed with: Patient My Orders My Orders Orders - VAMSI LOPEZ MD Procedure Category Date Status Time Dialysis Nursing EV 07/21/24 In Process Message 07:00 Heparin Sodium PHA 07/21/24 Logged (Porcine) 07:00 Heparin Sodium PHA 07/21/24 Logged (Porcine) 07:00 Sodium Chloride 0.9% PHA 07/21/24 Logged 07:00 Document Fluid Input EV 07/21/24 In Process And Outpu 07:00 Epoetin Justus-Epbx PHA 07/21/24 Logged (Retacrit) 21:00 Hemodialysis Orders ORDERS 07/20/24 Verified 07:00 Dietary Evaluation Review Comments: 1) If GI is accessible consider Nepro 1.8 @ 20 ml/hr with current rate of propofol on board 2) If pt remains NPO >7days of NPO status, provide TPN to meet at least 75% of estimated needs 3) Advance pt diet when medically feasible to a Renal Standard diet modified per [employer] FOURDRIN[employer] recommendations Expected Outcomes/Goals: 1) Pt to receive nutrition support within 7 days of NPO status 2) Pt diet to advance 3) F/U in 2-3 days VAMSI LOPEZ MD Jul 20, 2024 09:54
[2024-07-20] MEDS: MICAFUNGIN SODIUM 100 MG in SODIUM CHL 0.9% 100 ML IV SCH (10:27)
[2024-07-20] MEDS: VANCOMYCIN 500mg/100mL 100 ML IV ONE (18:42)
[2024-07-20] MEDS: Nepro With Carb Steady 1 Liter Bottle GT SCH (19:52)
--- NOTE | 2024-07-20 21:49 | DVHPN2 ---
Progress Note - Dictate Date Seen: Jul 20, 2024 Has the PT tested + for MRSA If YES, has PT been informed?: No Medical Necessity Reason Pt with a Central, PICC or Fol: Yes The following are medically ne: Central Line Subjective Patient seen and examined at bedside. Currently on BiPAP Overnight events reviewed vital signs Vital Sign Date Time Temp Pulse Resp B/P (MAP) Pulse Ox O2 Delivery O2 Flow Rate FiO2 07/20/24 21:00 70 22 131/39 (69) 96 146/56 (86) 07/20/24 20:10 Facial BiPAP Mask 30 07/20/24 20:00 97.7 97.7 07/20/24 10:00 4 Total Intake and Output 07/19/24 07/19/24 07/20/24 15:00 23:00 07:00 Intake Total 52.030 ml 121.285 ml 1.1825 ml Output Total 0 ml Balance 52.030 ml 121.285 ml 1.1825 ml medications Current Medications Medications Dose Ordered Sig/Rey Route Start Time Stop Time Status Last Admin Dose Admin Vancomycin HCl 0 ml @ 0 mls/hr UD IV 07/08/24 17:00 Sodium Chloride 10 ml Q8HR IV 07/09/24 06:00 07/20/24 14:31 10 ML Vasopressin 20 units/Sodium Chloride 100 ml @ 9 mls/hr Q11H7M IV 07/09/24 13:15 07/14/24 08:47 9 MLS/HR Norepinephrine Bitartrate 32 mg/ Sodium Chloride 250 ml @ 0.938 mls/ hr Q24H IV 07/09/24 15:30 07/17/24 08:56 0.938 MLS/HR Phenylephrine HCl 80 mg/Sodium Chloride 250 ml @ 7.5 mls/hr Q24H IV 07/09/24 15:45 07/10/24 08:08 33.75 MLS/HR Diagnostic Test (Pha) 1 strip Q4HR 07/09/24 18:00 07/20/24 18:34 1 STRIP Epinephrine HCl 250 ml @ 7.5 mls/hr Q24H IV 07/09/24 17:00 07/10/24 05:30 7.5 MLS/HR Pantoprazole Sodium 40 mg DAILY IV 07/10/24 10:00 07/20/24 10:22 40 MG Dextrose 50 ml PRN PRN IV 07/10/24 17:45 07/11/24 09:44 50 ML Epoetin Justus-epbx 10,000 unit MWF SC 07/14/24 21:00 07/19/24 10:00 10,000 UNIT Meropenem 50 ml @ 17 mls/hr Q24H IV 07/13/24 22:00 07/19/24 21:38 17 MLS/HR Albumin Human 50 ml @ 100 mls/hr PRN PRN IV 07/13/24 08:30 Cancel Albumin Human 50 ml @ 50 mls/hr PRN PRN IV 07/13/24 08:20 07/19/24 08:35 50 MLS/HR Enteral Nutritional Formula 1,000 ml 30ML/HR GT 07/13/24 12:00 07/20/24 19:52 1,000 ML Dexmedetomidine HCl 400 mcg/ Dextrose 100 ml @ 4.73 mls/hr Q21H9M IV 07/15/24 20:00 07/19/24 08:49 7.095 MLS/HR Lactulose 30 ml DAILY PO 07/17/24 10:00 07/20/24 10:20 30 ML Metoclopramide HCl 5 mg Q8HR IV 07/16/24 22:00 07/20/24 14:32 5 MG Propofol 100 ml @ 2.82 mls/hr Q24H IV 07/16/24 21:00 07/17/24 22:35 16.92 MLS/HR Albuterol 2.5 mg Q6HR HHN 07/18/24 18:00 07/20/24 18:53 2.5 MG Ipratropium [place] 0.5 mg Q6HR NEB 07/18/24 18:00 07/20/24 18:53 0.5 MG Micafungin Sodium 100 mg/Sodium Chloride 100 ml @ 100 mls/hr DAILY IV 07/20/24 10:00 07/20/24 10:27 100 MLS/HR Hydralazine HCl 10 mg Q4HR PRN IV 07/19/24 15:30 07/20/24 16:30 10 MG objective Gen.: Patient lying in bed in no apparent distress. On BiPAP Head: Normocephalic, atraumatic. Eyes: EOMI/PERRLA. Ears: Normal hearing. Normal anatomy. Neck/trachea: Trachea midline, supple. Nose: Normal external anatomy. Mouth: Moist mucous membranes. Chest: Decreased air entry bilaterally. No wheezing or rhonchi. Cardiovascular: Positive S1, positive S2. Regular rate and rhythm. Abdomen: Positive bowel sounds in all 4 quadrants. Soft, non-tender, non- distended. : Deferred. Rectal: Deferred. Skin: Warm, dry. Intact. Extremities: 2+ radial pulses bilaterally. No lower extremity edema. Neuro: Awake, alert. Altered, improving. No gross motor or sensory deficits. Cranial nerves II through XII intact. Gait not assessed. laboratory and microbiology Laboratory Tests 07/20/24 03:05 Test 07/20/24 03:05 Range/Units Serum Glucose 150 H 74-106 mg/dL Assessment/Plan Impression: Acute hypoxic respiratory failure Pulmonary edema Necrotizing fasciitis Septic shock Morbid obesity Events: Currently on BiPAP with IPAP 12, EPAP 5, FiO2 30% Taper as tolerated Patient on Levophed during hemodialysis - monitor hemodynamics CXR reviewed, demonstrates multifocal airspace disease w/ slightly improved aeration. No effusion or pneumothorax. Hemodialysis per Nephrology - removed 3 liters.yesterday Patient is altered, improving. Hemoglobin stable - continue to monitor Platelet count trending up - 68 K Tube feeds for nutritional support Continue antibiotics Start MIcafungin Sputum cultures showing filamentous fungi Continue IV steroids Incentive spirometry Monitor WBC Wound care HD per Nephrology Monitor renal function Monitor electrolytes. Supplement as necessary. Nephrology recommendations appreciated 07/17/24 - S/p therapeutic bronchoscopy w/ RLL BAL - cleared mucous plugging from L6-L10 and R6-R10 See separate procedure note for details. Labs and imaging reviewed. Rest of plan as noted below. Plan: s/p extubation on 07/18/24 Continue BiPAP with IPAP 12, EPAP 5, FiO2 30% Titrate to keep O2 saturations above 92%. Off sedation Continue antibiotics. F/u cultures. Continue IV steroids Pressors if necessary for hemodynamic support Titrate to keep MAP above 65 mmHg/SBP above 90 mmHg. On Levophed during hemodialysis - monitor hemodynamics Monitor renal function Monitor electrolytes. Supplement as necessary. Monitor ins and outs. GI prophylaxis. DVT prophylaxis. Prognosis: Poor given patient's multiple co-morbidities. Condition: Critical Rest of plan per hospitalist and other consultants. A total of 35 minutes of critical care time was spent reviewing the patient record, examining the patient, making a diagnostic and therapeutic plan, discussing this plan with the medical personnel, following up on diagnostic studies and following the patient for clinical stability excluding any and all procedures. At least 50% of this time was spent in direct, [id number] contact. Thank you Dr. Johnson, for allowing me to participate in this patient's care. Further recommendations will depend on the patient's clinical course. Please do not hesitate to contact me if you have any questions or concerns. This medical document was created using an electronic medical record system with [employer] dictation system. Although these documentations are being carefully reviewed, there may still be some phonetic and typographical changes. The errors are purely typographical, due to imperfection on the software program, and do not reflect any compromise in the patient's medical care. Dietary Evaluation Review Comments: 1) If GI is accessible consider Nepro 1.8 @ 20 ml/hr with current rate of propofol on board 2) If pt remains NPO >7days of NPO status, provide TPN to meet at least 75% of estimated needs 3) Advance pt diet when medically feasible to a Renal Standard diet modified per HIM CODER recommendations Expected Outcomes/Goals: 1) Pt to receive nutrition support within 7 days of NPO status 2) Pt diet to advance 3) F/U in 2-3 days Plan discussed with: Other (JACEK Dumas) Critical Care Time(min): 35 EB DEJESUS MD Jul 20, 2024 21:49
--- NOTE | 2024-07-20 22:50 | DVHPN2 ---
Progress Note - Dictate Date Seen: Jul 20, 2024 Has the PT tested + for MRSA If YES, has PT been informed?: No Medical Necessity Reason Pt with a Central, PICC or Fol: Yes The following are medically ne: Central Line Subjective Patient was seen and evaluated in follow up in the ICU. Patient is on Bi-PAP. Patient is complaining of SOB. Patient was more interactive today, able to follow commands. HGB 9.6, HCT 28.5, K 5.3,BUN 92, CRAB BACKER 5.37. LFTs are downtrending. vital signs Vital Sign Date Time Temp Pulse Resp B/P (MAP) Pulse Ox O2 Delivery O2 Flow Rate FiO2 07/20/24 22:05 72 161/62 95 Facial BiPAP Mask 30 07/20/24 21:00 22 07/20/24 20:00 97.7 97.7 07/20/24 10:00 4 Total Intake and Output 07/19/24 07/19/24 07/20/24 15:00 23:00 07:00 Intake Total 52.030 ml 121.285 ml 1.1825 ml Output Total 0 ml Balance 52.030 ml 121.285 ml 1.1825 ml medications Current Medications Medications Dose Ordered Sig/Rey Route Start Time Stop Time Status Last Admin Dose Admin Vancomycin HCl 0 ml @ 0 mls/hr UD IV 07/08/24 17:00 Sodium Chloride 10 ml Q8HR IV 07/09/24 06:00 07/20/24 22:04 10 ML Vasopressin 20 units/Sodium Chloride 100 ml @ 9 mls/hr Q11H7M IV 07/09/24 13:15 07/14/24 08:47 9 MLS/HR Norepinephrine Bitartrate 32 mg/ Sodium Chloride 250 ml @ 0.938 mls/ hr Q24H IV 07/09/24 15:30 07/17/24 08:56 0.938 MLS/HR Phenylephrine HCl 80 mg/Sodium Chloride 250 ml @ 7.5 mls/hr Q24H IV 07/09/24 15:45 07/10/24 08:08 33.75 MLS/HR Diagnostic Test (Pha) 1 strip Q4HR 07/09/24 18:00 07/20/24 22:09 1 STRIP Epinephrine HCl 250 ml @ 7.5 mls/hr Q24H IV 07/09/24 17:00 07/10/24 05:30 7.5 MLS/HR Pantoprazole Sodium 40 mg DAILY IV 07/10/24 10:00 07/20/24 10:22 40 MG Dextrose 50 ml PRN PRN IV 07/10/24 17:45 07/11/24 09:44 50 ML Epoetin Justus-epbx 10,000 unit MWF SC 07/14/24 21:00 07/19/24 10:00 10,000 UNIT Meropenem 50 ml @ 17 mls/hr Q24H IV 07/13/24 22:00 07/20/24 22:19 17 MLS/HR Albumin Human 50 ml @ 100 mls/hr PRN PRN IV 07/13/24 08:30 Cancel Albumin Human 50 ml @ 50 mls/hr PRN PRN IV 07/13/24 08:20 07/19/24 08:35 50 MLS/HR Enteral Nutritional Formula 1,000 ml 30ML/HR GT 07/13/24 12:00 07/20/24 19:52 1,000 ML Dexmedetomidine HCl 400 mcg/ Dextrose 100 ml @ 4.73 mls/hr Q21H9M IV 07/15/24 20:00 07/19/24 08:49 7.095 MLS/HR Lactulose 30 ml DAILY PO 07/17/24 10:00 07/20/24 10:20 30 ML Metoclopramide HCl 5 mg Q8HR IV 07/16/24 22:00 07/20/24 22:03 5 MG Propofol 100 ml @ 2.82 mls/hr Q24H IV 07/16/24 21:00 07/17/24 22:35 16.92 MLS/HR Albuterol 2.5 mg Q6HR HHN 07/18/24 18:00 07/20/24 18:53 2.5 MG Ipratropium [place] 0.5 mg Q6HR NEB 07/18/24 18:00 07/20/24 18:53 0.5 MG Micafungin Sodium 100 mg/Sodium Chloride 100 ml @ 100 mls/hr DAILY IV 07/20/24 10:00 07/20/24 10:27 100 MLS/HR Hydralazine HCl 10 mg Q4HR PRN IV 1/20/25 15:30 07/20/24 16:30 10 MG objective GENERAL: Awake, alert, oriented. Morbidly obese. LUNGS: Decreased breath sounds. CARDIOVASCULAR: Heart sounds are good. ABDOMEN: Soft. EXT: BLE edema. SKIN: Ecchymosis to right upper thigh. laboratory and microbiology Laboratory Tests 07/20/24 03:05 Test 07/20/24 03:05 Range/Units Serum Glucose 150 H 74-106 mg/dL Problem List Hypotension secondary to septic shock. Coronary artery disease status post CABG in 2021. History of hypertension. Hyperlipidemia. Hyperkalemia. Acute anemia. Thrombocytopenia. Transaminitis. End-stage renal disease on hemodialysis. Renal cell carcinoma status post left nephrectomy. COPD. Asthma. Morbid obesity. Dilated cardiomyopathy. Assessment/Plan Continued all current supportive medical care. GI prophylactics. IV antibiotics as ordered. Vasopressors for hemodynamic support. Additional plan as per the hospital course. Critical care time of 45 minutes provided to include time spent evaluation of patient at bedside, when appropriate patient/family education for diagnosis, treatment plan, review of pertinent medical information and discussion of care with specialty providers and PCP. Dietary Evaluation Review Comments: 1) If GI is accessible consider Nepro 1.8 @ 20 ml/hr with current rate of propofol on board 2) If pt remains NPO >7days of NPO status, provide TPN to meet at least 75% of estimated needs 3) Advance pt diet when medically feasible to a Renal Standard diet modified per SOURCING CONSULTANT recommendations Expected Outcomes/Goals: 1) Pt to receive nutrition support within 7 days of NPO status 2) Pt diet to advance 3) F/U in 2-3 days Plan discussed with: Patient FRIDA SIMMONS MD Jul 20, 2024 22:50
[2024-07-21] VITALS (106 sets, daily range): BP systolic 93–194; BP diastolic 22–129; PULSE 70–105; RESP 15–37; TEMP 97.3–98.9; O2SAT 88–100
[2024-07-21 03:49] LABS: Basophils # (auto) 0 10 ^3/uL (0-0.2); Basophils % (auto) 0.2 % (0.0-2.0); Eosinophils # (auto) 0 10 ^3/uL (0-0.8); Hemoglobin 10.8 g/dL (13.5-17.5); Lymphocytes # (auto) 0.5 10 ^3/uL (0.4-5.4); Lymphocytes % (auto) 4.6 % (10.0-50.0); Mean Corpuscular Hemoglobin 35.7 pg (28.0-32.0); Mean Corpuscular Hgb Conc. 33.7 g/dL (32.0-36.0); Mean Corpuscular Volume 106.1 fL (80.0-100.0); Monocytes % (auto) 8.9 % (0.0-12.0); Neutrophils # (auto) 9.3 10 ^3/uL (1.6-8.6); Neutrophils % (auto) 86.3 % (37.0-80.0); Nucleated Red Blood Cells % 0.2 %; Platelet Count (auto) 105 10^3/uL (140-450); Red Blood Cells 3.01 10^6/uL (4.5-5.90); Red Cell Distribution Width 22.1 % (11.8-14.3); White Blood Cell 10.8 10^3/uL (4.4-10.8)
[2024-07-21 04:06] LABS: Anion Gap 20 (5-15); Carbon Dioxide 21 mmol/L (20-31); Sodium 139 mmol/L (136-145)
[2024-07-21 04:07] LABS: Albumin 3.5 g/dL (3.2-4.8); Total Protein 6.2 g/dL (5.7-8.2)
[2024-07-21 04:21] LABS: Alanine Aminotransferase 190 U/L (7-40); Alkaline Phosphatase 148 U/L (46-116); Aspartate Aminotransferase 205 U/L (13-40); Bilirubin, Total 12.1 mg/dL (0.2-1.0); Blood Urea Nitrogen 118 mg/dL (9-23); Calcium 5.7 mg/dL (8.7-10.4); Chloride 98 mmol/L (98-107); Glucose 154 mg/dL (74-106); Magnesium 3.1 mg/dL (1.6-2.6); Potassium 5.3 mmol/L (3.5-5.1)
[2024-07-21 04:27] LABS: BUN/Creatinine Ratio 18.5 (10.0-20.0)
[2024-07-21] MEDS: SODIUM CHL 0.9% 1000 ML BAG XX ONE (06:43)
--- NOTE | 2024-07-21 09:45 | DVHPN2 ---
Progress Note - Dictate Date Seen: Jul 21, 2024 Has the PT tested + for MRSA If YES, has PT been informed?: No Medical Necessity Reason Pt with a Central, PICC or Fol: Yes The following are medically ne: Central Line Subjective Mr. Daniel altered gentleman with a history of hypertension, dyslipidemia, coronary artery disease, kidney cancer status post nephrectomy, kidney failure on hemodialysis, the patient was brought to the [facility]. I have seen and examined the patient, I have discussed with his nurse, he looks weaker, he was awake, on BiPAP, but he may only oriented to himself, he follows verbal commands He can only moves the arms the legs slightly, weaker than yesterday Blood culture, 07/08/2024: E coli HIV & II Ab, 07/10/24: Negative ABG, 07/09/2024: Metabolic acidosis, 07/10/2024: Metabolic acidosis, WBC/HB/PLT/MCV, 07/19/2024: 13.1/9.6/65/105.9 PT/INR/PTT, 07/11/2024: 35.6/3.63/38.4, 07/08/2024: 17.4/1.73/34.2 BUN/CR, 07/09/2024: 59/3.03 07/19/2024: 78/4.54 07/20/2024: 92/5.37 Lactic acid, 07/08/2019 5:3.1, 07/09/2024: 9.6, 07/10/24: 15.5, 07/11/2024: 449, 12.2 HGB A1c, : 3.8 CPK 07/08/2019 5:114, 07/19/2024: 1579 TBI/AST/ALT/AP, once the 925, 0.6/244/561/105, 07/09/2024: 1.1/306/563/101, 07/19/2024: 12/212/261/138 Hepatitis panel, : Negative TG/HDL/LDL/HDL, 07/10/2024: 364/60/5/<5 Vitamin B12, 07/19/2024: >4000 Folic acid 07/19/2024: 9.12 TSH, 07/10/2024: 0.33 Chest x-ray, 07/08/2024: Bronchovascular crowding. Underlying mild pulmonary vascular congestion can not be excluded Obscuration of the left hemidiaphragm which may be from overlying cardiac silhouette with underlying pleural effusion /atelectasis / pneumonia not excluded. Chest x-ray, 07/09/2024: 1. Left lower lobe opacity may reflect atelectasis or mild pneumonia. 2. Mild interstitial pulmonary edema. 3. Small left pleural effusion. 4. Lines and tubes as above (Endotracheal tube terminates 1.8 cm above the quin) Chest x-ray, 07/17/2024: Endotracheal tube terminates 4.8 cm from the quin. Enteric tube is overlying the plane of the stomach CT head, 07/19/2024: Atrophy. No acute intracranial pathology vital signs Vital Sign Date Time Temp Pulse Resp B/P (MAP) Pulse Ox O2 Delivery O2 Flow Rate FiO2 07/21/24 09:15 77 18 130/29 (62) 96 140/58 (85) 07/21/24 08:06 Facial BiPAP Mask 30 07/21/24 04:00 97.3 97.3 07/20/24 10:00 4 Total Intake and Output 07/20/24 07/20/24 07/21/24 14:59 22:59 06:59 Intake Total 240 ml 170 ml Output Total 0 ml 0 ml Balance 240 ml 170 ml medications Current Medications Medications Dose Ordered Sig/Rey Route Start Time Stop Time Status Last Admin Dose Admin Vancomycin HCl 0 ml @ 0 mls/hr UD IV 07/08/24 17:00 Sodium Chloride 10 ml Q8HR IV 07/09/24 06:00 07/21/24 05:59 10 ML Vasopressin 20 units/Sodium Chloride 100 ml @ 9 mls/hr Q11H7M IV 07/09/24 13:15 07/14/24 08:47 9 MLS/HR Norepinephrine Bitartrate 32 mg/ Sodium Chloride 250 ml @ 0.938 mls/ hr Q24H IV 07/09/24 15:30 07/17/24 08:56 0.938 MLS/HR Phenylephrine HCl 80 mg/Sodium Chloride 250 ml @ 7.5 mls/hr Q24H IV 07/09/24 15:45 07/10/24 08:08 33.75 MLS/HR Diagnostic Test (Pha) 1 strip Q4HR 07/09/24 18:00 07/21/24 05:59 1 STRIP Epinephrine HCl 250 ml @ 7.5 mls/hr Q24H IV 07/09/24 17:00 07/10/24 05:30 7.5 MLS/HR Pantoprazole Sodium 40 mg DAILY IV 07/10/24 10:00 07/20/24 10:22 40 MG Dextrose 50 ml PRN PRN IV 07/10/24 17:45 07/11/24 09:44 50 ML Epoetin Justus-epbx 10,000 unit MWF SC 07/14/24 21:00 07/19/24 10:00 10,000 UNIT Meropenem 50 ml @ 17 mls/hr Q24H IV 07/13/24 22:00 07/20/24 22:19 17 MLS/HR Albumin Human 50 ml @ 100 mls/hr PRN PRN IV 07/13/24 08:30 Cancel Albumin Human 50 ml @ 50 mls/hr PRN PRN IV 07/13/24 08:20 07/21/24 07:50 50 MLS/HR Enteral Nutritional Formula 1,000 ml 30ML/HR GT 07/13/24 12:00 07/20/24 19:52 1,000 ML Dexmedetomidine HCl 400 mcg/ Dextrose 100 ml @ 4.73 mls/hr Q21H9M IV 07/15/24 20:00 07/19/24 08:49 7.095 MLS/HR Lactulose 30 ml DAILY PO 07/17/24 10:00 07/20/24 10:20 30 ML Metoclopramide HCl 5 mg Q8HR IV 07/16/24 22:00 07/21/24 05:59 5 MG Propofol 100 ml @ 2.82 mls/hr Q24H IV 07/16/24 21:00 07/17/24 22:35 16.92 MLS/HR Albuterol 2.5 mg Q6HR HHN 07/18/24 18:00 07/21/24 00:28 2.5 MG Ipratropium [place] 0.5 mg Q6HR NEB 07/18/24 18:00 07/21/24 00:28 0.5 MG Micafungin Sodium 100 mg/Sodium Chloride 100 ml @ 100 mls/hr DAILY IV 07/20/24 10:00 07/20/24 10:27 100 MLS/HR Hydralazine HCl 10 mg Q4HR PRN IV 07/19/24 15:30 07/20/24 16:30 10 MG objective General: the patient is well developed and nourished. MENTAL STATUS: Subjective SPEECH, LANGUAGE, HIGHER CORTICAL FUNCTION: Subjective CRANIAL NERVES: Pupils are equal, round and reactive. EOMs full and conjugate.Facial sensation intact in all three divisions bilaterally. Mandibular strength intact. Facial muscles symmetrical and strength intact. SENSATION: Sensation to touch and pinprick is ok MOTOR: Normal tone in the upper and lower extremity. Normal muscle bulk. No fasciculations. No abnormal movements or posturing. He moves arms and legs minimally REFLEXES: Deep tendon reflexes are symmetrical. No pathological reflexes. CEREBELLAR/COORDINATION: Deferred GAIT/STATION: deferred laboratory and microbiology Laboratory Tests 07/21/24 03:10 Test 07/21/24 03:10 Range/Units Serum Glucose 154 H 74-106 mg/dL Problem List Altered mental status, improving Metabolic encephalopathy Hypoxic encephalopathy Toxic encephalopathy Hepatic encephalopathy Respiratory failure Sepsis/septic shock Pneumonia Cellulitis Metabolic acidosis Coagulopathy Elevated liver function test Thrombocytopenia Macrocytic anemia Elevated liver function tests ICU myopathy Assessment/Plan Monitoring Supportive treatment ICU care EEG MR brain scan later Stabilize vitals Respiratory support/BiPAP Oxygen Antibiotics GI prophylaxis/pantoprazole Infectious disease on case Pulmonary on case Cardiology on case Nephrology on case More recommendation per clinical course This medical document was created using an electronic medical record system with [employer] computerized dictation system. Although this document has been carefully reviewed, there may still be some phonetic and typographical errors. These areas are purely typographical due to imperfections of the software programs, and do not reflect any compromise in the patient's medical care Prognosis Guarded Dietary Evaluation Review Comments: 1) If GI is accessible consider Nepro 1.8 @ 20 ml/hr with current rate of propofol on board 2) If pt remains NPO >7days of NPO status, provide TPN to meet at least 75% of estimated needs 3) Advance pt diet when medically feasible to a Renal Standard diet modified per MACHINE [employer] HELPER recommendations Expected Outcomes/Goals: 1) Pt to receive nutrition support within 7 days of NPO status 2) Pt diet to advance 3) F/U in 2-3 days Plan discussed with: Other SUMIT SANTAMARIA MD Jul 21, 2024 09:45
--- NOTE | 2024-07-21 11:11 | DVHPN2 ---
Subjective Better No pressors Reviewed: Care Plan, H&P, Labs, Medications Changes from previous H/P or p: Changes General: Per HPI Eyes: No Pain, No Vision change, No Conjunctivae inflammation, No Eyelid inflammation, No Other, No Redness ENT: No Ear pain, No Ear discharge, No Nose pain, No Nose discharge, No Nose congestion, No Mouth pain, No Mouth swelling, No Throat pain, No Throat swelling, No Other Cardiovascular: Chest Pain Respiratory: Cough Gastrointestinal: No Nausea, No Vomiting, No Abdominal Pain, No Diarrhea, No Constipation, No Melena, No Hematochezia, No Other Genitourinary: No Dysuria, No Frequency, No Incontinence, No Hematuria, No Retention, No Other Musculoskeletal: other, leg pain Skin: Other Objective Vitals Vital Signs Date Time Temp Pulse Resp B/P (MAP) Pulse Ox O2 Delivery O2 Flow Rate FiO2 07/21/24 09:48 74 141/25 97 Facial BiPAP Mask 30 07/21/24 09:15 18 07/21/24 04:00 97.3 97.3 07/20/24 10:00 4 Intake/Output Intake and Output 07/21/24 07:00 Intake Total 410 ml Output Total 0 ml Balance 410 ml Intake Oral 40 ml IV Total 250 ml Tube Feeding 120 ml Output Urine Total 0 ml Stool Total 0 ml General Appearance: Alert, Other HEENT: PERRLA Lungs: Other (Rhonchi and crackles) Cardiovascular: Regular rate, Normal S1, Normal S2 Abdomen: Normal bowel sounds, Soft, No tenderness Musculoskeletal: Other (No motor movement) Neuro: Other (Unable to assess) Skin: Wounds (See nurse notes and pictures) Psych/Mental Status: Other (Unable to assess) Medications Current Medications Medications Dose Ordered Sig/Rey Route Start Time Stop Time Status Last Admin Dose Admin Vancomycin HCl 0 ml @ 0 mls/hr UD IV 07/08/24 17:00 Sodium Chloride 10 ml Q8HR IV 07/09/24 06:00 07/21/24 05:59 10 ML Vasopressin 20 units/Sodium Chloride 100 ml @ 9 mls/hr Q11H7M IV 07/09/24 13:15 07/14/24 08:47 9 MLS/HR Norepinephrine Bitartrate 32 mg/ Sodium Chloride 250 ml @ 0.938 mls/ hr Q24H IV 07/09/24 15:30 07/17/24 08:56 0.938 MLS/HR Phenylephrine HCl 80 mg/Sodium Chloride 250 ml @ 7.5 mls/hr Q24H IV 07/09/24 15:45 07/10/24 08:08 33.75 MLS/HR Diagnostic Test (Pha) 1 strip Q4HR 07/09/24 18:00 07/21/24 10:30 1 STRIP Epinephrine HCl 250 ml @ 7.5 mls/hr Q24H IV 07/09/24 17:00 07/10/24 05:30 7.5 MLS/HR Pantoprazole Sodium 40 mg DAILY IV 07/10/24 10:00 07/21/24 10:20 40 MG Dextrose 50 ml PRN PRN IV 07/10/24 17:45 07/11/24 09:44 50 ML Epoetin Justus-epbx 10,000 unit MWF SC 07/14/24 21:00 07/19/24 10:00 10,000 UNIT Meropenem 50 ml @ 17 mls/hr Q24H IV 07/13/24 22:00 07/20/24 22:19 17 MLS/HR Albumin Human 50 ml @ 100 mls/hr PRN PRN IV 07/13/24 08:30 Cancel Albumin Human 50 ml @ 50 mls/hr PRN PRN IV 07/13/24 08:20 07/21/24 07:50 50 MLS/HR Enteral Nutritional Formula 1,000 ml 30ML/HR GT 07/13/24 12:00 07/20/24 19:52 1,000 ML Dexmedetomidine HCl 400 mcg/ Dextrose 100 ml @ 4.73 mls/hr Q21H9M IV 07/15/24 20:00 07/19/24 08:49 7.095 MLS/HR Lactulose 30 ml DAILY PO 07/17/24 10:00 07/21/24 10:20 30 ML Metoclopramide HCl 5 mg Q8HR IV 07/16/24 22:00 07/21/24 05:59 5 MG Propofol 100 ml @ 2.82 mls/hr Q24H IV 07/16/24 21:00 07/17/24 22:35 16.92 MLS/HR Albuterol 2.5 mg Q6HR HHN 07/18/24 18:00 07/21/24 00:28 2.5 MG Ipratropium [place] 0.5 mg Q6HR NEB 07/18/24 18:00 07/21/24 00:28 0.5 MG Micafungin Sodium 100 mg/Sodium Chloride 100 ml @ 100 mls/hr DAILY IV 07/20/24 10:00 07/21/24 10:20 100 MLS/HR Hydralazine HCl 10 mg Q4HR PRN IV 07/19/24 15:30 07/20/24 16:30 10 MG Laboratory Results Laboratory Tests 07/21/24 03:10 Chemistry Test 07/21/24 03:10 Albumin 3.5 g/dL (3.2-4.8) Calcium Level 5.7 mg/dL (8.7-10.4) *L Magnesium Level 3.1 mg/dL (1.6-2.6) H Total Protein 6.2 g/dL (5.7-8.2) LFT Test 07/21/24 03:10 Alanine Aminotransferase (ALT) 190 U/L (7-40) H Alkaline Phosphatase 148 U/L (46-116) H Aspartate Amino Transferase (AST) 205 U/L (13-40) H Total Bilirubin 12.1 mg/dL (0.2-1.0) H Microbiology Microbiology Date/Time Source Procedure Growth Status 07/17/24 15:35 Bronchial Washings Gram Stain - Final Resulted 07/17/24 15:35 Bronchial Washings Respiratory Culture - Preliminary Resulted 07/09/24 19:55 Trachea Gram Stain - Final Complete 07/09/24 19:55 Trachea Respiratory Culture - Final Complete 07/08/24 18:00 Blood Blood Culture - Final Escherichia coli - ESBL Complete Assessment/Plan Assessment/Plan Severe sepsis with septic shock due to bacteremia with E. coli ESBL Bacteremia with E. coli ESBL Right leg infection / cellulitis: Better Metabolic acidosis: Better with HD ESRD on HD h/o kidney CA s/p nephrectomy Hyperkalemia: resolved Thrombocytopenia Coagulopathy LLL atelectasis and effusion CAD Mixed hyperlipidemia DM2 Obesity Hypoglycemia PLAN: 07/14/2024: Continue IV antibiotics: Meropenem and Vanco Vasopressors prn Tube feeding D%W for hypoglycemia, DC once tolerating feeding IV hydrocortisone Taper sedation as tolerated HD per nephrology Vascular surgery (Dr. Mcbride) is following ID consult 07/15/24: HD per nephrology Taper sedation as tolerated Taper down Levophed as tolerated Tube feeding DC IV fluids IV antibiotics Monitor closely 07/17/24: Hypocalcemia: Replace Ca++ IV Hypoalbuminemia: Albumin IV ESRD: HD per nephrology Sepsis: IV antibiotics Resp failure: C-PAP Constipation: Lactulose Tube feeding Thrombocytopenia: stable Transaminitis: Better Discussed with family at the bedside 07/18/24: C-PAP LUE doppler rule out DVT Extubation per Dr. Bermudez Meropenem and Vancomycin 07/19/2024: Hemodialysis per nephrology Monitor closely We will have to discuss the advance directives with the family again today 1 day come The patient is still confused and edematous Ultrasound of the left arm showed no DVT 07/20/24: CT head: Neg BiPAP prn HD per nephrology Off Levophed Meropenem Micafungin Vancomycin Neurology consult 07/21/24: Switch BiPAP to high-flow oxygen if possible Hemodialysis per nephrology IV antibiotics Monitor closely Plan discussed with: Patient, Spouse, Other Date of Service: Jul 21, 2024 Billing Provider: DG AQUINO MD Common Visit Codes: NOT BILLABLE DG AQUINO MD Jul 21, 2024 11:11
[2024-07-21] MEDS: InsuLIN REG 1unit/0.01ml Soln (100units/ml) SC SCH (14:00)
[2024-07-21] MEDS: ACCU-CHEK COMFORT CURVE STRIP VI SCH (14:27)
--- NOTE | 2024-07-21 15:52 | DVHPN2 ---
Progress Note Date Seen: Jul 21, 2024 Has the PT tested + for MRSA If YES, has PT been informed?: No Medical Necessity Reason Pt with a Central, PICC or Fol: Yes The following are medically ne: Central Line Subjective Review of Systems: RESPIRATORY:Abnormal Other Systems: Patient seen and examined by myself today in follow-up, patient remained intubated on ventilator Patient examined hemodialysis, Objective vital signs Vital Sign Date Time Temp Pulse Resp B/P (MAP) Pulse Ox O2 Delivery O2 Flow Rate FiO2 07/21/24 15:30 85 18 145/54 (84) 96 172/60 (97) 07/21/24 15:19 60.0 40 07/21/24 14:00 98.9 98.9 07/21/24 09:48 Facial BiPAP Mask Total Intake and Output 07/20/24 07/20/24 07/21/24 15:00 23:00 07:00 Intake Total 290 ml 120 ml Output Total 0 ml 0 ml Balance 290 ml 120 ml medications Current Medications Medications Dose Ordered Sig/Rey Route Start Time Stop Time Status Last Admin Dose Admin Vancomycin HCl 0 ml @ 0 mls/hr UD IV 07/08/24 17:00 Sodium Chloride 10 ml Q8HR IV 07/09/24 06:00 07/21/24 15:18 10 ML Vasopressin 20 units/Sodium Chloride 100 ml @ 9 mls/hr Q11H7M IV 07/09/24 13:15 07/14/24 08:47 9 MLS/HR Norepinephrine Bitartrate 32 mg/ Sodium Chloride 250 ml @ 0.938 mls/ hr Q24H IV 07/09/24 15:30 07/17/24 08:56 0.938 MLS/HR Phenylephrine HCl 80 mg/Sodium Chloride 250 ml @ 7.5 mls/hr Q24H IV 07/09/24 15:45 07/10/24 08:08 33.75 MLS/HR Epinephrine HCl 250 ml @ 7.5 mls/hr Q24H IV 07/09/24 17:00 07/10/24 05:30 7.5 MLS/HR Pantoprazole Sodium 40 mg DAILY IV 07/10/24 10:00 07/21/24 10:20 40 MG Epoetin Justus-epbx 10,000 unit MWF OR 07/14/24 21:00 07/21/24 11:14 10,000 UNIT Meropenem 50 ml @ 17 mls/hr Q24H IV 07/13/24 22:00 07/20/24 22:19 17 MLS/HR Albumin Human 50 ml @ 100 mls/hr PRN PRN IV 07/13/24 08:30 Cancel Albumin Human 50 ml @ 50 mls/hr PRN PRN IV 07/13/24 08:20 07/21/24 07:50 50 MLS/HR Enteral Nutritional Formula 1,000 ml 30ML/HR GT 07/13/24 12:00 07/20/24 19:52 1,000 ML Dexmedetomidine HCl 400 mcg/ Dextrose 100 ml @ 4.73 mls/hr Q21H9M IV 07/15/24 20:00 07/19/24 08:49 7.095 MLS/HR Lactulose 30 ml DAILY PO 07/17/24 10:00 07/21/24 10:20 30 ML Metoclopramide HCl 5 mg Q8HR IV 07/16/24 22:00 07/21/24 05:59 5 MG Propofol 100 ml @ 2.82 mls/hr Q24H IV 07/16/24 21:00 07/17/24 22:35 16.92 MLS/HR Albuterol 2.5 mg Q6HR HHN 07/18/24 18:00 07/21/24 11:27 2.5 MG Ipratropium [place] 0.5 mg Q6HR NEB 07/18/24 18:00 07/21/24 11:27 0.5 MG Micafungin Sodium 100 mg/Sodium Chloride 100 ml @ 100 mls/hr DAILY IV 07/20/24 10:00 07/21/24 10:20 100 MLS/HR Hydralazine HCl 10 mg Q4HR PRN IV 07/19/24 15:30 07/20/24 16:30 10 MG Diagnostic Test (Pha) 1 strip IQ4HR 07/21/24 14:00 Insulin Human Regular IQ4HR SC 07/21/24 14:00 Dextrose 50 ml UD PRN IV 07/21/24 13:00 Examination: CVS:Normal, MSK:Normal laboratory and microbiology Laboratory Tests 07/21/24 03:10 Test 07/21/24 03:10 Range/Units Serum Glucose 154 H 74-106 mg/dL Microbiology Date/Time Source Procedure Growth Status 07/17/24 15:35 Bronchial Washings Gram Stain - Final Resulted 07/17/24 15:35 Bronchial Washings Respiratory Culture - Preliminary Resulted 07/09/24 19:55 Trachea Gram Stain - Final Complete 07/09/24 19:55 Trachea Respiratory Culture - Final Complete 07/08/24 18:00 Blood Blood Culture - Final Escherichia coli - ESBL Complete Problem List/Assessment/Plan Problem List/Assessment/Plan ESRD on HD Acute respiratory failure, extubated 07/18 hyperkalemia, uremic acidosis / lactic acidosis septic shock with gram-negative anabella bacteremia lower extremity wound anemia hypoglycemia Left pleural effusion Recommendations Continue with UF to 3 L as tolerated Epogen 00384 IV post hemodialysis Re check K Renal diet Thoracentesis will continue to follow Plan discussed with: Other My Orders My Orders Orders - VAMSI LOPEZ MD Procedure Category Date Status Time Communication Order ORDERS 07/21/24 Transmitted 06:41 Dietary Evaluation Review Comments: 1) If GI is accessible consider Nepro 1.8 @ 20 ml/hr with current rate of propofol on board 2) If pt remains NPO >7days of NPO status, provide TPN to meet at least 75% of estimated needs 3) Advance pt diet when medically feasible to a Renal Standard diet modified per DENTAL LAB TECHNICIAN recommendations Expected Outcomes/Goals: 1) Pt to receive nutrition support within 7 days of NPO status 2) Pt diet to advance 3) F/U in 2-3 days VAMSI LOPEZ MD Jul 21, 2024 15:52
[2024-07-21] MEDS: GLYCOPYRROLATE 0.2 MG/ML 1ML VIAL IV ONE (18:18)
[2024-07-21] MEDS: VANCOMYCIN 500mg/100mL 100 ML IV ONE (18:58)
--- NOTE | 2024-07-21 20:50 | DVHPN2 ---
Progress Note - Dictate Date Seen: Jul 21, 2024 Has the PT tested + for MRSA If YES, has PT been informed?: No Medical Necessity Reason Pt with a Central, PICC or Fol: Yes The following are medically ne: Central Line Subjective Patient was seen and evaluated in follow up in the ICU. Patient is on Bi-PAP. Patient appears weak, he is only oriented to self. HCT 32, K 5.3, BUN 118, TEMPERER 6.37, CA 5.7, AST 205, ALT 190. vital signs Vital Sign Date Time Temp Pulse Resp B/P (MAP) Pulse Ox O2 Delivery O2 Flow Rate FiO2 07/21/24 11:30 85 17 141/42 (75) 98 166/65 (98) 07/21/24 09:48 Facial BiPAP Mask 30 07/21/24 04:00 97.3 97.3 07/20/24 10:00 4 Total Intake and Output 07/20/24 07/20/24 07/21/24 15:00 23:00 07:00 Intake Total 290 ml 120 ml Output Total 0 ml 0 ml Balance 290 ml 120 ml medications Current Medications Medications Dose Ordered Sig/Rey Route Start Time Stop Time Status Last Admin Dose Admin Vancomycin HCl 0 ml @ 0 mls/hr UD IV 07/08/24 17:00 Sodium Chloride 10 ml Q8HR IV 07/09/24 06:00 07/21/24 05:59 10 ML Vasopressin 20 units/Sodium Chloride 100 ml @ 9 mls/hr Q11H7M IV 07/09/24 13:15 07/14/24 08:47 9 MLS/HR Norepinephrine Bitartrate 32 mg/ Sodium Chloride 250 ml @ 0.938 mls/ hr Q24H IV 07/09/24 15:30 07/17/24 08:56 0.938 MLS/HR Phenylephrine HCl 80 mg/Sodium Chloride 250 ml @ 7.5 mls/hr Q24H IV 07/09/24 15:45 07/10/24 08:08 33.75 MLS/HR Diagnostic Test (Pha) 1 strip Q4HR 07/09/24 18:00 07/21/24 10:30 1 STRIP Epinephrine HCl 250 ml @ 7.5 mls/hr Q24H IV 07/09/24 17:00 07/10/24 05:30 7.5 MLS/HR Pantoprazole Sodium 40 mg DAILY IV 07/10/24 10:00 07/21/24 10:20 40 MG Epoetin Justus-epbx 10,000 unit MWF SC 07/14/24 21:00 07/21/24 11:14 10,000 UNIT Meropenem 50 ml @ 17 mls/hr Q24H IV 07/13/24 22:00 07/20/24 22:19 17 MLS/HR Albumin Human 50 ml @ 100 mls/hr PRN PRN IV 07/13/24 08:30 Cancel Albumin Human 50 ml @ 50 mls/hr PRN PRN IV 07/13/24 08:20 07/21/24 07:50 50 MLS/HR Enteral Nutritional Formula 1,000 ml 30ML/HR GT 07/13/24 12:00 07/20/24 19:52 1,000 ML Dexmedetomidine HCl 400 mcg/ Dextrose 100 ml @ 4.73 mls/hr Q21H9M IV 07/15/24 20:00 07/19/24 08:49 7.095 MLS/HR Lactulose 30 ml DAILY PO 07/17/24 10:00 07/21/24 10:20 30 ML Metoclopramide HCl 5 mg Q8HR IV 07/16/24 22:00 07/21/24 05:59 5 MG Propofol 100 ml @ 2.82 mls/hr Q24H IV 07/16/24 21:00 07/17/24 22:35 16.92 MLS/HR Albuterol 2.5 mg Q6HR HHN 07/18/24 18:00 07/21/24 11:27 2.5 MG Ipratropium [place] 0.5 mg Q6HR NEB 07/18/24 18:00 07/21/24 11:27 0.5 MG Micafungin Sodium 100 mg/Sodium Chloride 100 ml @ 100 mls/hr DAILY IV 07/20/24 10:00 07/21/24 10:20 100 MLS/HR Hydralazine HCl 10 mg Q4HR PRN IV 07/19/24 15:30 07/20/24 16:30 10 MG Diagnostic Test (Pha) 1 strip IQ4HR 07/21/24 14:00 Insulin Human Regular IQ4HR SC 07/21/24 14:00 Dextrose 50 ml UD PRN IV 07/21/24 13:00 objective GENERAL: Awake, altered. Morbidly obese. LUNGS: Decreased breath sounds. CARDIOVASCULAR: Heart sounds are good. ABDOMEN: Soft. EXT: BLE edema. SKIN: Ecchymosis to right upper thigh. laboratory and microbiology Laboratory Tests 07/21/24 03:10 Test 07/21/24 03:10 Range/Units Serum Glucose 154 H 74-106 mg/dL Problem List Hypotension secondary to septic shock. Coronary artery disease status post CABG in 2021. History of hypertension. Hyperlipidemia. Hyperkalemia. Acute anemia. Thrombocytopenia. Transaminitis. End-stage renal disease on hemodialysis. Renal cell carcinoma status post left nephrectomy. COPD. Asthma. Morbid obesity. Dilated cardiomyopathy. Assessment/Plan Continued all current supportive medical care. GI prophylactics. IV antibiotics as ordered. Vasopressors for hemodynamic support. Additional plan as per the hospital course. Critical care time of 45 minutes provided to include time spent evaluation of patient at bedside, when appropriate patient/family education for diagnosis, treatment plan, review of pertinent medical information and discussion of care with specialty providers and PCP. Dietary Evaluation Review Comments: 1) If GI is accessible consider Nepro 1.8 @ 20 ml/hr with current rate of propofol on board 2) If pt remains NPO >7days of NPO status, provide TPN to meet at least 75% of estimated needs 3) Advance pt diet when medically feasible to a Renal Standard diet modified per ATHLETIC DIRECTOR recommendations Expected Outcomes/Goals: 1) Pt to receive nutrition support within 7 days of NPO status 2) Pt diet to advance 3) F/U in 2-3 days Plan discussed with: FRIDA Colon MD Jul 21, 2024 13:18
[2024-07-21] MEDS ORDERED: EPOETIN ALFA-EPBX 10,000 UNIT/1ML VIAL SC ONE (21:00)
--- NOTE | 2024-07-21 21:24 | DVHPN2 ---
Progress Note - Dictate Date Seen: Jul 21, 2024 Has the PT tested + for MRSA If YES, has PT been informed?: No Medical Necessity Reason Pt with a Central, PICC or Fol: Yes The following are medically ne: Central Line Subjective Patient seen and examined at bedside. Currently on high flow supplemental oxygen Overnight events reviewed vital signs Vital Sign Date Time Temp Pulse Resp B/P (MAP) Pulse Ox O2 Delivery O2 Flow Rate FiO2 07/21/24 20:45 92 24 122/42 (68) 95 150/62 (91) 07/21/24 20:00 Hi-Flow Heated NC+ 60 40 40 07/21/24 20:00 98.3 98.3 Total Intake and Output 07/20/24 07/20/24 07/21/24 15:00 23:00 07:00 Intake Total 290 ml 120 ml Output Total 0 ml 0 ml Balance 290 ml 120 ml medications Current Medications Medications Dose Ordered Sig/Rey Route Start Time Stop Time Status Last Admin Dose Admin Vancomycin HCl 0 ml @ 0 mls/hr UD IV 07/08/24 17:00 Sodium Chloride 10 ml Q8HR IV 07/09/24 06:00 07/21/24 15:18 10 ML Vasopressin 20 units/Sodium Chloride 100 ml @ 9 mls/hr Q11H7M IV 07/09/24 13:15 07/14/24 08:47 9 MLS/HR Norepinephrine Bitartrate 32 mg/ Sodium Chloride 250 ml @ 0.938 mls/ hr Q24H IV 07/09/24 15:30 07/17/24 08:56 0.938 MLS/HR Phenylephrine HCl 80 mg/Sodium Chloride 250 ml @ 7.5 mls/hr Q24H IV 07/09/24 15:45 07/10/24 08:08 33.75 MLS/HR Epinephrine HCl 250 ml @ 7.5 mls/hr Q24H IV 07/09/24 17:00 07/10/24 05:30 7.5 MLS/HR Pantoprazole Sodium 40 mg DAILY IV 07/10/24 10:00 07/21/24 10:20 40 MG Epoetin Justus-epbx 10,000 unit MWF SC 07/14/24 21:00 07/21/24 11:14 10,000 UNIT Meropenem 50 ml @ 17 mls/hr Q24H IV 07/13/24 22:00 07/20/24 22:19 17 MLS/HR Albumin Human 50 ml @ 100 mls/hr PRN PRN IV 07/13/24 08:30 Cancel Albumin Human 50 ml @ 50 mls/hr PRN PRN IV 07/13/24 08:20 07/21/24 07:50 50 MLS/HR Enteral Nutritional Formula 1,000 ml 30ML/HR GT 07/13/24 12:00 07/20/24 19:52 1,000 ML Dexmedetomidine HCl 400 mcg/ Dextrose 100 ml @ 4.73 mls/hr Q21H9M IV 07/15/24 20:00 07/19/24 08:49 7.095 MLS/HR Lactulose 30 ml DAILY PO 07/17/24 10:00 07/21/24 10:20 30 ML Metoclopramide HCl 5 mg Q8HR IV 07/16/24 22:00 07/21/24 15:45 5 MG Propofol 100 ml @ 2.82 mls/hr Q24H IV 07/16/24 21:00 07/17/24 22:35 16.92 MLS/HR Albuterol 2.5 mg Q6HR HHN 07/18/24 18:00 07/21/24 18:46 2.5 MG Ipratropium [place] 0.5 mg Q6HR NEB 07/18/24 18:00 07/21/24 18:46 0.5 MG Micafungin Sodium 100 mg/Sodium Chloride 100 ml @ 100 mls/hr DAILY IV 07/20/24 10:00 07/21/24 10:20 100 MLS/HR Hydralazine HCl 10 mg Q4HR PRN IV 07/19/24 15:30 07/20/24 16:30 10 MG Diagnostic Test (Pha) 1 strip IQ4HR 07/21/24 14:00 07/21/24 20:03 1 STRIP Insulin Human Regular IQ4HR SC 07/21/24 14:00 Dextrose 50 ml UD PRN IV 07/21/24 13:00 Acetylcysteine 200 mg Q8HR NEB 07/21/24 22:00 07/24/24 21:59 objective Gen.: Patient lying in bed in no apparent distress. On supplemental oxygen Head: Normocephalic, atraumatic. Eyes: EOMI/PERRLA. Ears: Normal hearing. Normal anatomy. Neck/trachea: Trachea midline, supple. Nose: Normal external anatomy. Mouth: Moist mucous membranes. Chest: Decreased air entry bilaterally. No wheezing or rhonchi. Cardiovascular: Positive S1, positive S2. Regular rate and rhythm. Abdomen: Positive bowel sounds in all 4 quadrants. Soft, non-tender, non- distended. : Deferred. Rectal: Deferred. Skin: Warm, dry. Intact. Extremities: 2+ radial pulses bilaterally. No lower extremity edema. Neuro: Awake, alert. Altered, only oriented to self. No gross motor or sensory deficits. Cranial nerves II through XII intact. Gait not assessed. laboratory and microbiology Laboratory Tests 07/21/24 03:10 Test 07/21/24 03:10 Range/Units Serum Glucose 154 H 74-106 mg/dL Assessment/Plan Impression: Acute hypoxic respiratory failure Pulmonary edema Necrotizing fasciitis Septic shock Morbid obesity Events: Patient was transitioned from BiPAP Currently on high flow supplemental oxygen, flow rate 60 LPM, FiO2 40%. Taper O2 as tolerated Increased oral secretions Give 1 dose of glycopyrrolate. Thick secretions. Start Mucomyst with bronchodilators. Patient on Levophed during hemodialysis - monitor hemodynamics CXR on 07/20/24 demonstrates multifocal airspace disease w/ slightly improved aeration. No effusion or pneumothorax. Patient is altered, only oriented to self. Monitor hemoglobin Monitor platelet count Tube feeds for nutritional support NTS PRN to clear secretions Head of bed elevation Aspiration precautions. Continue bronchodilators/Mucomyst Continue antibiotics Continue Micafungin Sputum cultures showing filamentous fungi Incentive spirometry Monitor WBC Wound care HD per Nephrology Monitor renal function Monitor electrolytes. Supplement as necessary. Nephrology recommendations appreciated 07/17/24 - S/p therapeutic bronchoscopy w/ RLL BAL - cleared mucous plugging from L6-L10 and R6-R10 See separate procedure note for details. Labs and imaging reviewed. Rest of plan as noted below. Plan: s/p extubation on 07/18/24 Supplemental oxygen Titrate to keep O2 saturations above 92%. Off sedation Continue antibiotics. F/u cultures. Pressors if necessary for hemodynamic support Titrate to keep MAP above 65 mmHg/SBP above 90 mmHg. On Levophed during hemodialysis - monitor hemodynamics Monitor renal function Monitor electrolytes. Supplement as necessary. Monitor ins and outs. GI prophylaxis. DVT prophylaxis. Prognosis: Poor given patient's multiple co-morbidities. Condition: Critical Rest of plan per hospitalist and other consultants. A total of 35 minutes of critical care time was spent reviewing the patient record, examining the patient, making a diagnostic and therapeutic plan, discussing this plan with the medical personnel, following up on diagnostic studies and following the patient for clinical stability excluding any and all procedures. At least 50% of this time was spent in direct, [id number] contact. Thank you Dr. Johnson, for allowing me to participate in this patient's care. Further recommendations will depend on the patient's clinical course. Please do not hesitate to contact me if you have any questions or concerns. This medical document was created using an electronic medical record system with [employer] dictation system. Although these documentations are being carefully reviewed, there may still be some phonetic and typographical changes. The errors are purely typographical, due to imperfection on the software program, and do not reflect any compromise in the patient's medical care. Dietary Evaluation Review Comments: 1) If GI is accessible consider Nepro 1.8 @ 20 ml/hr with current rate of propofol on board 2) If pt remains NPO >7days of NPO status, provide TPN to meet at least 75% of estimated needs 3) Advance pt diet when medically feasible to a Renal Standard diet modified per CLINICAL LABORATORY SCIENTIST recommendations Expected Outcomes/Goals: 1) Pt to receive nutrition support within 7 days of NPO status 2) Pt diet to advance 3) F/U in 2-3 days Plan discussed with: Other (JACEK Dumas) Critical Care Time(min): 35 EB DEJESUS MD Jul 21, 2024 21:24
[2024-07-22] VITALS (104 sets, daily range): BP systolic 101–180; BP diastolic 29–73; PULSE 77–114; RESP 20–35; TEMP 98.2–99.5; O2SAT 92–100
[2024-07-22] MEDS: ACETYLCYSTEINE 20%(200MG/ML) SOL 4ML NEB SCH (00:08)
[2024-07-22 03:43] LABS: Basophils # (auto) 0 10 ^3/uL (0-0.2); Eosinophils # (auto) 0 10 ^3/uL (0-0.8); Hematocrit 34.9 % (41.0-53.0); Hemoglobin 11.3 g/dL (13.5-17.5); Lymphocytes # (auto) 0.7 10 ^3/uL (0.4-5.4); Lymphocytes % (auto) 5.8 % (10.0-50.0); Monocytes # (auto) 0.7 10 ^3/uL (0-1.3); Neutrophils # (auto) 10.4 10 ^3/uL (1.6-8.6)
[2024-07-22 03:44] LABS: Basophils % (auto) 0.2 % (0.0-2.0); Eosinophils % (auto) 0.4 % (0.0-7.0); Mean Corpuscular Hemoglobin 34.7 pg (28.0-32.0); Mean Corpuscular Hgb Conc. 32.3 g/dL (32.0-36.0); Mean Corpuscular Volume 107.5 fL (80.0-100.0); Monocytes % (auto) 6.3 % (0.0-12.0); Neutrophils % (auto) 87.3 % (37.0-80.0); Nucleated Red Blood Cells % 0.1 %; Platelet Count (auto) 113 10^3/uL (140-450); Red Blood Cells 3.25 10^6/uL (4.5-5.90); White Blood Cell 11.9 10^3/uL (4.4-10.8)
[2024-07-22 03:57] LABS: Red Cell Distribution Width 22.4 % (11.8-14.3)
[2024-07-22 04:01] LABS: Anion Gap 16 (5-15); Carbon Dioxide 24 mmol/L (20-31); Chloride 100 mmol/L (98-107); Potassium 4.7 mmol/L (3.5-5.1); Sodium 140 mmol/L (136-145)
[2024-07-22 04:11] LABS: BUN/Creatinine Ratio 15.3 (10.0-20.0); Calcium 6.8 mg/dL (8.7-10.4); Glucose 123 mg/dL (74-106)
[2024-07-22 04:13] LABS: Blood Urea Nitrogen 89 mg/dL (9-23)
[2024-07-22] MEDS: LABETALOL HCL 20 MG/4 ML VL IV ONE (04:37)
--- NOTE | 2024-07-22 05:26 | DVH ---
CHEST RADIOGRAPH Indication: Dyspnea, increased cough Technique: Single frontal view of the chest was obtained COMPARISON: XY CHEST PORTABLE on DOS: 07/20/24, XY CHEST PORTABLE on DOS: 07/19/24, XY CHEST PORTABLE o n DOS: 07/18/24, XY CHEST PORTABLE on DOS: 07/18/24, XY CHEST PORTABLE on DOS: 07/17/24 FINDINGS: Lines and Tubes: Median sternotomy. Enteric catheter in satisfactory position. Lungs: Congestion Pleura: No effusion. No pneumothorax. Cardiomediastinal contours: Unremarkable Bones: Unremarkable IMPRESSION: No significant interval change.
--- NOTE | 2024-07-22 10:56 | DVHPN2 ---
Progress Note - Dictate Date Seen: Jul 22, 2024 Has the PT tested + for MRSA If YES, has PT been informed?: No Medical Necessity Reason Pt with a Central, PICC or Fol: Yes The following are medically ne: Central Line Subjective Mr. Daniel altered gentleman with a history of hypertension, dyslipidemia, coronary artery disease, kidney cancer status post nephrectomy, kidney failure on hemodialysis, the patient was brought to the [facility]. I have seen and examined the patient, I have discussed with his nurse, he looks weaker than yesterday, awake, he may only oriented to himself, he answers all my questions with head nodding, he only moves the head, not extremities, he was not on PAP Blood culture, 07/08/2024: E coli HIV & II Ab, 07/10/24: Negative ABG, 07/09/2024: Metabolic acidosis, 07/10/2024: Metabolic acidosis, WBC/HB/PLT/MCV, 07/19/2024: 13.1/9.6/65/105.9 PT/INR/PTT, 07/11/2024: 35.6/3.63/38.4, 07/08/2024: 17.4/1.73/34.2 BUN/CR, 07/09/2024: 59/3.03 07/19/2024: 78/4.54 07/20/2024: 92/5.37 Lactic acid, 07/08/2019 5:3.1, 07/09/2024: 9.6, 07/10/24: 15.5, 07/11/2024: 449, 12.2 HGB A1c, : 3.8 CPK 07/08/2019 5:114, 07/19/2024: 1579 TBI/AST/ALT/AP, once the 925, 0.6/244/561/105, 07/09/2024: 1.1/306/563/101, 07/19/2024: 12/212/261/138 Hepatitis panel, : Negative TG/HDL/LDL/HDL, 07/10/2024: 364/60/5/<5 Vitamin B12, 07/19/2024: >4000 Folic acid 07/19/2024: 9.12 TSH, 07/10/2024: 0.33 Chest x-ray, 07/08/2024: Bronchovascular crowding. Underlying mild pulmonary vascular congestion can not be excluded Obscuration of the left hemidiaphragm which may be from overlying cardiac silhouette with underlying pleural effusion /atelectasis / pneumonia not excluded. Chest x-ray, 07/09/2024: 1. Left lower lobe opacity may reflect atelectasis or mild pneumonia. 2. Mild interstitial pulmonary edema. 3. Small left pleural effusion. 4. Lines and tubes as above (Endotracheal tube terminates 1.8 cm above the quin) Chest x-ray, 07/17/2024: Endotracheal tube terminates 4.8 cm from the quin. Enteric tube is overlying the plane of the stomach CT head, 07/19/2024: Atrophy. No acute intracranial pathology vital signs Vital Sign Date Time Temp Pulse Resp B/P (MAP) Pulse Ox O2 Delivery O2 Flow Rate FiO2 07/22/24 09:41 164/72 07/22/24 08:04 89 26 98 60.0 40 07/22/24 06:30 Facial BiPAP Mask 07/22/24 04:00 98.2 98.2 Total Intake and Output 07/21/24 07/21/24 07/22/24 15:00 23:00 07:00 Intake Total 150 ml 315 ml 233 ml Output Total 3000 ml 0 ml 0 ml Balance -2850 ml 315 ml 233 ml medications Current Medications Medications Dose Ordered Sig/Rey Route Start Time Stop Time Status Last Admin Dose Admin Vancomycin HCl 0 ml @ 0 mls/hr UD IV 07/08/24 17:00 Sodium Chloride 10 ml Q8HR IV 07/09/24 06:00 07/22/24 05:18 10 ML Vasopressin 20 units/Sodium Chloride 100 ml @ 9 mls/hr Q11H7M IV 07/09/24 13:15 07/14/24 08:47 9 MLS/HR Norepinephrine Bitartrate 32 mg/ Sodium Chloride 250 ml @ 0.938 mls/ hr Q24H IV 07/09/24 15:30 07/17/24 08:56 0.938 MLS/HR Phenylephrine HCl 80 mg/Sodium Chloride 250 ml @ 7.5 mls/hr Q24H IV 07/09/24 15:45 07/10/24 08:08 33.75 MLS/HR Epinephrine HCl 250 ml @ 7.5 mls/hr Q24H IV 07/09/24 17:00 07/10/24 05:30 7.5 MLS/HR Pantoprazole Sodium 40 mg DAILY IV 07/10/24 10:00 07/22/24 09:39 40 MG Epoetin Just[place]-epbx 10,000 unit MWF SC 07/14/24 21:00 07/21/24 11:14 10,000 UNIT Meropenem 50 ml @ 17 mls/hr Q24H IV 07/13/24 22:00 07/21/24 21:50 17 MLS/HR Albumin Human 50 ml @ 100 mls/hr PRN PRN IV 07/13/24 08:30 Cancel Albumin Human 50 ml @ 50 mls/hr PRN PRN IV 07/13/24 08:20 07/21/24 07:50 50 MLS/HR Enteral Nutritional Formula 1,000 ml 30ML/HR GT 07/13/24 12:00 07/22/24 00:49 1,000 ML Dexmedetomidine HCl 400 mcg/ Dextrose 100 ml @ 4.73 mls/hr Q21H9M IV 07/15/24 20:00 07/19/24 08:49 7.095 MLS/HR Lactulose 30 ml DAILY PO 07/17/24 10:00 07/22/24 09:39 30 ML Metoclopramide HCl 5 mg Q8HR IV 07/16/24 22:00 07/22/24 05:18 5 MG Propofol 100 ml @ 2.82 mls/hr Q24H IV 07/16/24 21:00 07/17/24 22:35 16.92 MLS/HR Albuterol 2.5 mg Q6HR HHN 07/18/24 18:00 07/22/24 06:31 2.5 MG Ipratropium [place] 0.5 mg Q6HR NEB 07/18/24 18:00 07/22/24 06:30 0.5 MG Micafungin Sodium 100 mg/Sodium Chloride 100 ml @ 100 mls/hr DAILY IV 07/20/24 10:00 07/22/24 09:40 100 MLS/HR Hydralazine HCl 10 mg Q4HR PRN IV 07/19/24 15:30 07/22/24 09:41 10 MG Diagnostic Test (Pha) 1 strip IQ4HR 07/21/24 14:00 07/22/24 08:00 1 STRIP Insulin Human Regular IQ4HR SC 07/21/24 14:00 Dextrose 50 ml UD PRN IV 07/21/24 13:00 Acetylcysteine 200 mg Q8HR NEB 07/21/24 22:00 07/24/24 21:59 07/22/24 06:31 200 MG objective General: the patient is well developed and nourished. MENTAL STATUS: Subjective SPEECH, LANGUAGE, HIGHER CORTICAL FUNCTION: Subjective CRANIAL NERVES: Pupils are equal, round and reactive. EOMs full and conjugate.Facial sensation intact in all three divisions bilaterally. Mandibular strength intact. Facial muscles symmetrical and strength intact. SENSATION: Sensation to touch and pinprick is ok MOTOR: Normal tone in the upper and lower extremity. Normal muscle bulk. No fasciculations. No abnormal movements or posturing. He moves arms and legs minimally REFLEXES: Deep tendon reflexes are symmetrical. No pathological reflexes. CEREBELLAR/COORDINATION: Deferred GAIT/STATION: deferred laboratory and microbiology Laboratory Tests 07/22/24 03:05 Test 07/22/24 03:05 Range/Units Serum Glucose 123 H 74-106 mg/dL Problem List Altered mental status, improving Metabolic encephalopathy Hypoxic encephalopathy Toxic encephalopathy Hepatic encephalopathy Respiratory failure Sepsis/septic shock Pneumonia Cellulitis Metabolic acidosis Coagulopathy Elevated liver function test Thrombocytopenia Macrocytic anemia Elevated liver function tests ICU myopathy Assessment/Plan Monitoring Supportive treatment ICU care EEG MR brain scan later Stabilize vitals Respiratory support/BiPAP Oxygen Antibiotics GI prophylaxis/pantoprazole Infectious disease on case Pulmonary on case Cardiology on case Nephrology on case More recommendation per clinical course This medical document was created using an electronic medical record system with [employer] dictation system. Although this document has been carefully reviewed, there may still be some phonetic and typographical errors. These areas are purely typographical due to imperfections of the software programs, and do not reflect any compromise in the patient's medical care Prognosis poor Dietary Evaluation Review Comments: 1) If GI is accessible consider Nepro 1.8 @ 20 ml/hr with current rate of propofol on board 2) If pt remains NPO >7days of NPO status, provide TPN to meet at least 75% of estimated needs 3) Advance pt diet when medically feasible to a Renal Standard diet modified per INDEPENDENT FILM MAKER recommendations Expected Outcomes/Goals: 1) Pt to receive nutrition support within 7 days of NPO status 2) Pt diet to advance 3) F/U in 2-3 days Plan discussed with: Other SUMIT SANTAMARIA MD Jul 22, 2024 10:56
--- NOTE | 2024-07-22 11:09 | DVHPN2 ---
Subjective Tired Lethargic but follows commands On high flow O2 Reviewed: Care Plan, H&P, Labs, Medications Changes from previous H/P or p: Changes General: Per HPI Eyes: No Pain, No Vision change, No Conjunctivae inflammation, No Eyelid inflammation, No Other, No Redness ENT: No Ear pain, No Ear discharge, No Nose pain, No Nose discharge, No Nose congestion, No Mouth pain, No Mouth swelling, No Throat pain, No Throat swelling, No Other Cardiovascular: Chest Pain Respiratory: Cough Gastrointestinal: No Nausea, No Vomiting, No Abdominal Pain, No Diarrhea, No Constipation, No Melena, No Hematochezia, No Other Genitourinary: No Dysuria, No Frequency, No Incontinence, No Hematuria, No Retention, No Other Musculoskeletal: other, leg pain Skin: Other Objective Vitals Vital Signs Date Time Temp Pulse Resp B/P (MAP) Pulse Ox O2 Delivery O2 Flow Rate FiO2 07/22/24 09:41 164/72 07/22/24 08:04 89 26 98 60.0 40 07/22/24 06:30 Facial BiPAP Mask 07/22/24 04:00 98.2 98.2 Intake/Output Intake and Output 07/22/24 07:00 Intake Total 698 ml Output Total 3000 ml Balance -2302 ml Intake Oral 100 ml IV Total 300 ml Tube Feeding 298 ml Output Urine Total 0 ml Other 3000 ml General Appearance: Alert, Other HEENT: PERRLA Lungs: Other (Rhonchi and crackles) Cardiovascular: Regular rate, Normal S1, Normal S2 Abdomen: Normal bowel sounds, Soft, No tenderness Musculoskeletal: Other (No motor movement) Neuro: Other (Unable to assess) Skin: Wounds (See nurse notes and pictures) Psych/Mental Status: Other (Unable to assess) Medications Current Medications Medications Dose Ordered Sig/Rey Route Start Time Stop Time Status Last Admin Dose Admin Vancomycin HCl 0 ml @ 0 mls/hr UD IV 07/08/24 17:00 Sodium Chloride 10 ml Q8HR IV 07/09/24 06:00 07/22/24 05:18 10 ML Vasopressin 20 units/Sodium Chloride 100 ml @ 9 mls/hr Q11H7M IV 07/09/24 13:15 07/14/24 08:47 9 MLS/HR Norepinephrine Bitartrate 32 mg/ Sodium Chloride 250 ml @ 0.938 mls/ hr Q24H IV 07/09/24 15:30 07/17/24 08:56 0.938 MLS/HR Phenylephrine HCl 80 mg/Sodium Chloride 250 ml @ 7.5 mls/hr Q24H IV 07/09/24 15:45 07/10/24 08:08 33.75 MLS/HR Epinephrine HCl 250 ml @ 7.5 mls/hr Q24H IV 07/09/24 17:00 07/10/24 05:30 7.5 MLS/HR Pantoprazole Sodium 40 mg DAILY IV 07/10/24 10:00 07/22/24 09:39 40 MG Epoetin Justus-epbx 10,000 unit MWF SC 07/14/24 21:00 07/21/24 11:14 10,000 UNIT Meropenem 50 ml @ 17 mls/hr Q24H IV 07/13/24 22:00 07/21/24 21:50 17 MLS/HR Albumin Human 50 ml @ 100 mls/hr PRN PRN IV 07/13/24 08:30 Cancel Albumin Human 50 ml @ 50 mls/hr PRN PRN IV 07/13/24 08:20 07/21/24 07:50 50 MLS/HR Enteral Nutritional Formula 1,000 ml 30ML/HR GT 07/13/24 12:00 07/22/24 00:49 1,000 ML Dexmedetomidine HCl 400 mcg/ Dextrose 100 ml @ 4.73 mls/hr Q21H9M IV 07/15/24 20:00 07/19/24 08:49 7.095 MLS/HR Lactulose 30 ml DAILY PO 07/17/24 10:00 07/22/24 09:39 30 ML Metoclopramide HCl 5 mg Q8HR IV 07/16/24 22:00 07/22/24 05:18 5 MG Propofol 100 ml @ 2.82 mls/hr Q24H IV 07/16/24 21:00 07/17/24 22:35 16.92 MLS/HR Albuterol 2.5 mg Q6HR HHN 07/18/24 18:00 07/22/24 06:31 2.5 MG Ipratropium [place] 0.5 mg Q6HR NEB 07/18/24 18:00 07/22/24 06:30 0.5 MG Micafungin Sodium 100 mg/Sodium Chloride 100 ml @ 100 mls/hr DAILY IV 07/20/24 10:00 07/22/24 09:40 100 MLS/HR Hydralazine HCl 10 mg Q4HR PRN IV 07/19/24 15:30 07/22/24 09:41 10 MG Diagnostic Test (Pha) 1 strip IQ4HR 07/21/24 14:00 07/22/24 08:00 1 STRIP Insulin Human Regular IQ4HR SC 07/21/24 14:00 Dextrose 50 ml UD PRN IV 07/21/24 13:00 Acetylcysteine 200 mg Q8HR NEB 07/21/24 22:00 07/24/24 21:59 07/22/24 06:31 200 MG Laboratory Results Laboratory Tests 07/22/24 03:05 Chemistry Test 07/22/24 03:05 Calcium Level 6.8 mg/dL (8.7-10.4) L Microbiology Microbiology Date/Time Source Procedure Growth Status 07/17/24 15:35 Bronchial Washings Gram Stain - Final Resulted 07/17/24 15:35 Bronchial Washings Respiratory Culture - Preliminary Resulted 07/09/24 19:55 Trachea Gram Stain - Final Complete 07/09/24 19:55 Trachea Respiratory Culture - Final Complete 07/08/24 18:00 Blood Blood Culture - Final Escherichia coli - ESBL Complete Assessment/Plan Assessment/Plan Severe sepsis with septic shock due to bacteremia with E. coli ESBL Bacteremia with E. coli ESBL Right leg infection / cellulitis: Better Metabolic acidosis: Better with HD ESRD on HD h/o kidney CA s/p nephrectomy Hyperkalemia: resolved Thrombocytopenia Coagulopathy LLL atelectasis and effusion CAD Mixed hyperlipidemia DM2 Obesity Hypoglycemia PLAN: 07/14/2024: Continue IV antibiotics: Meropenem and Vanco Vasopressors prn Tube feeding D%W for hypoglycemia, DC once tolerating feeding IV hydrocortisone Taper sedation as tolerated HD per nephrology Vascular surgery (Dr. Mcbride) is following ID consult 07/15/24: HD per nephrology Taper sedation as tolerated Taper down Levophed as tolerated Tube feeding DC IV fluids IV antibiotics Monitor closely 07/17/24: Hypocalcemia: Replace Ca++ IV Hypoalbuminemia: Albumin IV ESRD: HD per nephrology Sepsis: IV antibiotics Resp failure: C-PAP Constipation: Lactulose Tube feeding Thrombocytopenia: stable Transaminitis: Better Discussed with family at the bedside 07/18/24: C-PAP LUE doppler rule out DVT Extubation per Dr. Bermudez Meropenem and Vancomycin 07/19/2024: Hemodialysis per nephrology Monitor closely We will have to discuss the advance directives with the family again today 1 day come The patient is still confused and edematous Ultrasound of the left arm showed no DVT 07/20/24: CT head: Neg BiPAP prn HD per nephrology Off Levophed Meropenem Micafungin Vancomycin Neurology consult 07/21/24: Switch BiPAP to high-flow oxygen if possible Hemodialysis per nephrology IV antibiotics Monitor closely 07/22/24: Uncontrolled HTN: Add Labetalol prn IV Meropenem and Vanco Sepsis: Better HD Plan discussed with: Patient, Spouse My Orders Orders - DG AQUINO MD Procedure Category Date Status Time Glucose Blood PHA 07/21/24 In Process (Accu-Chek Comfort 14:00 Insulin R (Human) PHA 07/21/24 In Process (Insulin R) 14:00 Dextrose 50% Syringe PHA 07/21/24 Logged 13:00 Date of Service: Jul 22, 2024 Billing Provider: DG AQUINO MD Common Visit Codes: NOT BILLABLE DG AQUINO MD Jul 22, 2024 11:09
[2024-07-22] MEDS ORDERED: LABETALOL HCL 20 MG/4 ML VL IV PRN (11:15)
--- NOTE | 2024-07-22 13:32 | DVHPN2 ---
Progress Note - Dictate Date Seen: Jul 22, 2024 Has the PT tested + for MRSA If YES, has PT been informed?: No Medical Necessity Reason Pt with a Central, PICC or Fol: Yes The following are medically ne: Central Line Subjective Patient was seen and evaluated in follow up in the ICU. Patient remains on Bi- PAP. Patient is appearing significantly weaker than yesterday. Patient answers questions with head nodding. WBC 11.9, BUN 89, DIRECTOR ALUMNI RELATIONS 5.82, CA 6.8. vital signs Vital Sign Date Time Temp Pulse Resp B/P (MAP) Pulse Ox O2 Delivery O2 Flow Rate FiO2 07/22/24 09:41 164/72 07/22/24 08:04 89 26 98 60.0 40 07/22/24 08:00 Bi-Pap+ 07/22/24 04:00 98.2 98.2 Total Intake and Output 07/21/24 07/21/24 07/22/24 15:00 23:00 07:00 Intake Total 150 ml 315 ml 233 ml Output Total 3000 ml 0 ml 0 ml Balance -2850 ml 315 ml 233 ml medications Current Medications Medications Dose Ordered Sig/Rey Route Start Time Stop Time Status Last Admin Dose Admin Vancomycin HCl 0 ml @ 0 mls/hr UD IV 07/08/24 17:00 Sodium Chloride 10 ml Q8HR IV 07/09/24 06:00 07/22/24 05:18 10 ML Vasopressin 20 units/Sodium Chloride 100 ml @ 9 mls/hr Q11H7M IV 07/09/24 13:15 07/14/24 08:47 9 MLS/HR Norepinephrine Bitartrate 32 mg/ Sodium Chloride 250 ml @ 0.938 mls/ hr Q24H IV 07/09/24 15:30 07/17/24 08:56 0.938 MLS/HR Phenylephrine HCl 80 mg/Sodium Chloride 250 ml @ 7.5 mls/hr Q24H IV 07/09/24 15:45 07/10/24 08:08 33.75 MLS/HR Epinephrine HCl 250 ml @ 7.5 mls/hr Q24H IV 07/09/24 17:00 07/10/24 05:30 7.5 MLS/HR Pantoprazole Sodium 40 mg DAILY IV 07/10/24 10:00 07/22/24 09:39 40 MG Epoetin Justus-epbx 10,000 unit MWF SC 07/14/24 21:00 07/21/24 11:14 10,000 UNIT Meropenem 50 ml @ 17 mls/hr Q24H IV 07/13/24 22:00 07/21/24 21:50 17 MLS/HR Albumin Human 50 ml @ 100 mls/hr PRN PRN IV 07/13/24 08:30 Cancel Albumin Human 50 ml @ 50 mls/hr PRN PRN IV 07/13/24 08:20 07/21/24 07:50 50 MLS/HR Enteral Nutritional Formula 1,000 ml 30ML/HR GT 07/13/24 12:00 07/22/24 00:49 1,000 ML Dexmedetomidine HCl 400 mcg/ Dextrose 100 ml @ 4.73 mls/hr Q21H9M IV 07/15/24 20:00 07/19/24 08:49 7.095 MLS/HR Lactulose 30 ml DAILY PO 07/17/24 10:00 07/22/24 09:39 30 ML Metoclopramide HCl 5 mg Q8HR IV 07/16/24 22:00 07/22/24 05:18 5 MG Albuterol 2.5 mg Q6HR HHN 07/18/24 18:00 07/22/24 06:31 2.5 MG Ipratropium [place] 0.5 mg Q6HR NEB 07/18/24 18:00 07/22/24 06:30 0.5 MG Micafungin Sodium 100 mg/Sodium Chloride 100 ml @ 100 mls/hr DAILY IV 07/20/24 10:00 07/22/24 09:40 100 MLS/HR Hydralazine HCl 10 mg Q4HR PRN IV 07/19/24 15:30 Hold 07/22/24 09:41 10 MG Diagnostic Test (Pha) 1 strip IQ4HR 07/21/24 14:00 07/22/24 08:00 1 STRIP Insulin Human Regular IQ4HR SC 07/21/24 14:00 Dextrose 50 ml UD PRN IV 07/21/24 13:00 Acetylcysteine 200 mg Q8HR NEB 07/21/24 22:00 07/24/24 21:59 07/22/24 06:31 200 MG Labetalol HCl 10 mg Q2HPRN PRN IV 07/22/24 11:15 objective GENERAL: Awake, altered. Morbidly obese. LUNGS: Decreased breath sounds. CARDIOVASCULAR: Heart sounds are good. ABDOMEN: Soft. EXT: BLE edema. SKIN: Ecchymosis to right upper thigh. laboratory and microbiology Laboratory Tests 07/22/24 03:05 Test 07/22/24 03:05 Range/Units Serum Glucose 123 H 74-106 mg/dL Problem List Hypotension secondary to septic shock. Coronary artery disease status post CABG in 2021. History of hypertension. Hyperlipidemia. Hyperkalemia. Acute anemia. Thrombocytopenia. Transaminitis. End-stage renal disease on hemodialysis. Renal cell carcinoma status post left nephrectomy. COPD. Asthma. Morbid obesity. Dilated cardiomyopathy. Assessment/Plan Continued all current supportive medical care. GI prophylactics. IV antibiotics as ordered. Vasopressors for hemodynamic support. Additional plan as per the hospital course. Critical care time of 45 minutes provided to include time spent evaluation of patient at bedside, when appropriate patient/family education for diagnosis, treatment plan, review of pertinent medical information and discussion of care with specialty providers and PCP. Dietary Evaluation Review Comments: 1) If GI is accessible consider Nepro 1.8 @ 20 ml/hr with current rate of propofol on board 2) If pt remains NPO >7days of NPO status, provide TPN to meet at least 75% of estimated needs 3) Advance pt diet when medically feasible to a Renal Standard diet modified per [employer] recommendations Expected Outcomes/Goals: 1) Pt to receive nutrition support within 7 days of NPO status 2) Pt diet to advance 3) F/U in 2-3 days Plan discussed with: Other FRIDA SIMMONS MD Jul 22, 2024 11:39
--- NOTE | 2024-07-22 14:19 | DVHPN2 ---
Progress Note Date Seen: Jul 22, 2024 Has the PT tested + for MRSA If YES, has PT been informed?: No Medical Necessity Reason Pt with a Central, PICC or Fol: Yes The following are medically ne: Central Line Subjective Review of Systems: RESPIRATORY:Abnormal Other Systems: Patient seen and examined by myself today in follow-up, patient remained high flow nasal cannula Objective vital signs Vital Sign Date Time Temp Pulse Resp B/P (MAP) Pulse Ox O2 Delivery O2 Flow Rate FiO2 07/22/24 12:31 137/64 07/22/24 12:22 101 24 100 40.0 30 07/22/24 12:00 Hi-Flow Heated NC+ 07/22/24 04:00 98.2 98.2 Total Intake and Output 07/21/24 07/21/24 07/22/24 15:00 23:00 07:00 Intake Total 150 ml 315 ml 233 ml Output Total 3000 ml 0 ml 0 ml Balance -2850 ml 315 ml 233 ml medications Current Medications Medications Dose Ordered Sig/Ery Route Start Time Stop Time Status Last Admin Dose Admin Vancomycin HCl 0 ml @ 0 mls/hr UD IV 07/08/24 17:00 Sodium Chloride 10 ml Q8HR IV 07/09/24 06:00 07/22/24 13:55 10 ML Vasopressin 20 units/Sodium Chloride 100 ml @ 9 mls/hr Q11H7M IV 07/09/24 13:15 07/14/24 08:47 9 MLS/HR Norepinephrine Bitartrate 32 mg/ Sodium Chloride 250 ml @ 0.938 mls/ hr Q24H IV 07/09/24 15:30 07/17/24 08:56 0.938 MLS/HR Phenylephrine HCl 80 mg/Sodium Chloride 250 ml @ 7.5 mls/hr Q24H IV 07/09/24 15:45 07/10/24 08:08 33.75 MLS/HR Epinephrine HCl 250 ml @ 7.5 mls/hr Q24H IV 07/09/24 17:00 07/10/24 05:30 7.5 MLS/HR Pantoprazole Sodium 40 mg DAILY IV 07/10/24 10:00 07/22/24 09:39 40 MG Epoetin Justus-epbx 10,000 unit MWF NC 07/14/24 21:00 07/21/24 11:14 10,000 UNIT Meropenem 50 ml @ 17 mls/hr Q24H IV 07/13/24 22:00 07/21/24 21:50 17 MLS/HR Albumin Human 50 ml @ 100 mls/hr PRN PRN IV 07/13/24 08:30 Cancel Albumin Human 50 ml @ 50 mls/hr PRN PRN IV 07/13/24 08:20 07/21/24 07:50 50 MLS/HR Enteral Nutritional Formula 1,000 ml 30ML/HR GT 07/13/24 12:00 07/22/24 00:49 1,000 ML Dexmedetomidine HCl 400 mcg/ Dextrose 100 ml @ 4.73 mls/hr Q21H9M IV 07/15/24 20:00 07/19/24 08:49 7.095 MLS/HR Lactulose 30 ml DAILY PO 07/17/24 10:00 07/22/24 09:39 30 ML Metoclopramide HCl 5 mg Q8HR IV 07/16/24 22:00 07/22/24 13:55 5 MG Albuterol 2.5 mg Q6HR HHN 07/18/24 18:00 07/22/24 12:22 2.5 MG Ipratropium [place] 0.5 mg Q6HR NEB 07/18/24 18:00 07/22/24 12:22 0.5 MG Micafungin Sodium 100 mg/Sodium Chloride 100 ml @ 100 mls/hr DAILY IV 07/20/24 10:00 07/22/24 09:40 100 MLS/HR Hydralazine HCl 10 mg Q4HR PRN IV 07/19/24 15:30 Hold 07/22/24 09:41 10 MG Diagnostic Test (Pha) 1 strip IQ4HR 07/21/24 14:00 07/22/24 12:00 1 STRIP Insulin Human Regular IQ4HR SC 07/21/24 14:00 07/22/24 12:00 3 UNITS Dextrose 50 ml UD PRN IV 07/21/24 13:00 Acetylcysteine 200 mg Q8HR NEB 07/21/24 22:00 07/24/24 21:59 07/22/24 12:22 200 MG Labetalol HCl 10 mg Q2HPRN PRN IV 07/22/24 11:15 Examination: LUNGS:Normal, CVS:Normal, MSK:Normal laboratory and microbiology Laboratory Tests 07/22/24 03:05 Test 07/22/24 03:05 Range/Units Serum Glucose 123 H 74-106 mg/dL Microbiology Date/Time Source Procedure Growth Status 07/17/24 15:35 Bronchial Washings Gram Stain - Final Resulted 07/17/24 15:35 Bronchial Washings Respiratory Culture - Preliminary Resulted 07/09/24 19:55 Trachea Gram Stain - Final Complete 07/09/24 19:55 Trachea Respiratory Culture - Final Complete 07/08/24 18:00 Blood Blood Culture - Final Escherichia coli - ESBL Complete Problem List/Assessment/Plan Problem List/Assessment/Plan ESRD on HD Acute respiratory failure, extubated 07/18 hyperkalemia, resolved uremic acidosis / lactic acidosis septic shock with gram-negative anabella bacteremia lower extremity wound anemia hypoglycemia Left pleural effusion Recommendations Hemodialysis tomorrow Epogen 47980 IV post hemodialysis IV antibiotic Renal diet Thoracentesis will continue to follow Plan discussed with: Patient Dietary Evaluation Review Comments: 1) If GI is accessible consider Nepro 1.8 @ 20 ml/hr with current rate of propofol on board 2) If pt remains NPO >7days of NPO status, provide TPN to meet at least 75% of estimated needs 3) Advance pt diet when medically feasible to a Renal Standard diet modified per SLATE CUTTER recommendations Expected Outcomes/Goals: 1) Pt to receive nutrition support within 7 days of NPO status 2) Pt diet to advance 3) F/U in 2-3 days VAMSI LOPEZ MD Jul 22, 2024 14:19
--- NOTE | 2024-07-22 20:41 | DVHPN2 ---
Progress Note - Dictate Date Seen: Jul 22, 2024 Has the PT tested + for MRSA If YES, has PT been informed?: No Medical Necessity Reason Pt with a Central, PICC or Fol: Yes The following are medically ne: Central Line Subjective Patient seen and examined at bedside. Remains on high flow supplemental oxygen Overnight events reviewed vital signs Vital Sign Date Time Temp Pulse Resp B/P (MAP) Pulse Ox O2 Delivery O2 Flow Rate FiO2 07/22/24 18:45 99 27 119/63 (81) 93 144/66 (92) 07/22/24 18:35 30.0 30 07/22/24 18:00 Hi-Flow Heated NC+ 07/22/24 16:00 99.2 99.2 Total Intake and Output 07/21/24 07/21/24 07/22/24 15:00 23:00 07:00 Intake Total 150 ml 315 ml 233 ml Output Total 3000 ml 0 ml 0 ml Balance -2850 ml 315 ml 233 ml medications Current Medications Medications Dose Ordered Sig/Rey Route Start Time Stop Time Status Last Admin Dose Admin Vancomycin HCl 0 ml @ 0 mls/hr UD IV 07/08/24 17:00 Sodium Chloride 10 ml Q8HR IV 07/09/24 06:00 07/22/24 13:55 10 ML Vasopressin 20 units/Sodium Chloride 100 ml @ 9 mls/hr Q11H7M IV 07/09/24 13:15 07/14/24 08:47 9 MLS/HR Norepinephrine Bitartrate 32 mg/ Sodium Chloride 250 ml @ 0.938 mls/ hr Q24H IV 07/09/24 15:30 07/17/24 08:56 0.938 MLS/HR Phenylephrine HCl 80 mg/Sodium Chloride 250 ml @ 7.5 mls/hr Q24H IV 07/09/24 15:45 07/10/24 08:08 33.75 MLS/HR Epinephrine HCl 250 ml @ 7.5 mls/hr Q24H IV 07/09/24 17:00 07/10/24 05:30 7.5 MLS/HR Pantoprazole Sodium 40 mg DAILY IV 07/10/24 10:00 07/22/24 09:39 40 MG Epoetin Justus-epbx 10,000 unit MWF SC 07/14/24 21:00 07/21/24 11:14 10,000 UNIT Meropenem 50 ml @ 17 mls/hr Q24H IV 07/13/24 22:00 07/21/24 21:50 17 MLS/HR Albumin Human 50 ml @ 100 mls/hr PRN PRN IV 07/13/24 08:30 Cancel Albumin Human 50 ml @ 50 mls/hr PRN PRN IV 07/13/24 08:20 07/21/24 07:50 50 MLS/HR Enteral Nutritional Formula 1,000 ml 30ML/HR GT 07/13/24 12:00 07/22/24 00:49 1,000 ML Dexmedetomidine HCl 400 mcg/ Dextrose 100 ml @ 4.73 mls/hr Q21H9M IV 07/15/24 20:00 07/19/24 08:49 7.095 MLS/HR Lactulose 30 ml DAILY PO 07/17/24 10:00 07/22/24 09:39 30 ML Metoclopramide HCl 5 mg Q8HR IV 07/16/24 22:00 07/22/24 13:55 5 MG Albuterol 2.5 mg Q6HR HHN 07/18/24 18:00 07/22/24 18:38 2.5 MG Ipratropium [place] 0.5 mg Q6HR NEB 07/18/24 18:00 07/22/24 18:38 0.5 MG Micafungin Sodium 100 mg/Sodium Chloride 100 ml @ 100 mls/hr DAILY IV 07/20/24 10:00 07/22/24 09:40 100 MLS/HR Hydralazine HCl 10 mg Q4HR PRN IV 07/19/24 15:30 Hold 07/22/24 09:41 10 MG Diagnostic Test (Pha) 1 strip IQ4HR 07/21/24 14:00 07/22/24 16:06 1 STRIP Insulin Human Regular IQ4HR SC 07/21/24 14:00 07/22/24 16:07 2 UNITS Dextrose 50 ml UD PRN IV 07/21/24 13:00 Acetylcysteine 200 mg Q8HR NEB 07/21/24 22:00 07/24/24 21:59 07/22/24 12:22 200 MG Labetalol HCl 10 mg Q2HPRN PRN IV 07/22/24 11:15 objective Gen.: Patient lying in bed in no apparent distress. On supplemental oxygen Head: Normocephalic, atraumatic. Eyes: EOMI/PERRLA. Ears: Normal hearing. Normal anatomy. Neck/trachea: Trachea midline, supple. Nose: Normal external anatomy. Mouth: Moist mucous membranes. Chest: Decreased air entry bilaterally. No wheezing or rhonchi. Cardiovascular: Positive S1, positive S2. Regular rate and rhythm. Abdomen: Positive bowel sounds in all 4 quadrants. Soft, non-tender, non- distended. : Deferred. Rectal: Deferred. Skin: Warm, dry. Intact. Extremities: 2+ radial pulses bilaterally. No lower extremity edema. Neuro: Awake, alert. Following commands. No gross motor or sensory deficits. Cranial nerves II through XII intact. Gait not assessed. laboratory and microbiology Laboratory Tests 07/22/24 03:05 Test 07/22/24 03:05 Range/Units Serum Glucose 123 H 74-106 mg/dL Assessment/Plan Impression: Acute hypoxic respiratory failure Pulmonary edema Necrotizing fasciitis Septic shock Morbid obesity Events: Remains on high flow supplemental oxygen, flow rate 30 LPM, FiO2 30%. Improving O2 requirements. BiPAP at night Continue to taper O2 as tolerated U/S Doppler of left upper extremity negative for DVT. Patient is more lethargic this AM. Neurology recommendations appreciated. Plan to obtain brain MRI. Continue bronchodilators/Mucomyst Continue antibiotics Continue Micafungin Incentive spirometry Patient on Levophed during hemodialysis - monitor hemodynamics CXR reviewed, demonstrates pulmonary congestion, stable. No effusion or pneumothorax. Patient is awake, alert, following commands. Monitor hemoglobin Monitor platelet count NGT. Tube feeds for nutritional support Patient remains weak Continue lactulose daily NTS PRN to clear secretions Head of bed elevation Aspiration precautions. Monitor WBC Wound care Physical therapy HD per Nephrology Monitor renal function Monitor electrolytes. Supplement as necessary. Nephrology recommendations appreciated 07/17/24 - S/p therapeutic bronchoscopy w/ RLL BAL - cleared mucous plugging from L6-L10 and R6-R10 See separate procedure note for details. Labs and imaging reviewed. Rest of plan as noted below. Plan: s/p extubation on 07/18/24 Supplemental oxygen Titrate to keep O2 saturations above 92%. BIPAP at night Off sedation Continue antibiotics. F/u cultures. Pressors if necessary for hemodynamic support Titrate to keep MAP above 65 mmHg/SBP above 90 mmHg. On Levophed during hemodialysis - monitor hemodynamics Monitor renal function Monitor electrolytes. Supplement as necessary. Monitor ins and outs. GI prophylaxis. DVT prophylaxis. Prognosis: Poor given patient's multiple co-morbidities. Condition: Critical Rest of plan per hospitalist and other consultants. A total of 35 minutes of critical care time was spent reviewing the patient record, examining the patient, making a diagnostic and therapeutic plan, discussing this plan with the medical personnel, following up on diagnostic studies and following the patient for clinical stability excluding any and all procedures. At least 50% of this time was spent in direct, [id number] contact. Thank you Dr. Johnson, for allowing me to participate in this patient's care. Further recommendations will depend on the patient's clinical course. Please do not hesitate to contact me if you have any questions or concerns. This medical document was created using an electronic medical record system with [employer] dictation system. Although these documentations are being carefully reviewed, there may still be some phonetic and typographical changes. The errors are purely typographical, due to imperfection on the software program, and do not reflect any compromise in the patient's medical care. Dietary Evaluation Review Comments: 1) If GI is accessible consider Nepro 1.8 @ 20 ml/hr with current rate of propofol on board 2) If pt remains NPO >7days of NPO status, provide TPN to meet at least 75% of estimated needs 3) Advance pt diet when medically feasible to a Renal Standard diet modified per ELECTR[employer] MECH[employer]ICAL TECHNICIAN recommendations Expected Outcomes/Goals: 1) Pt to receive nutrition support within 7 days of NPO status 2) Pt diet to advance 3) F/U in 2-3 days Plan discussed with: Other (JACEK Lange) Critical Care Time(min): 35 EB DEJESUS MD Jul 22, 2024 20:41
--- NOTE | 2024-07-22 20:47 | DVHEEG2 ---
Neurology EEG Procedural Note Procedural Note EXAM DATE: 07/22/2024 REFERRING DOCTOR: Dr. Santamaria TECHNIQUE: Eighteen channels of EEG, 2 channels of EOG, and 1 channel of EKG were recorded using the [employer] 10/20 system. CLINICAL DATA: The patient was referred for an EEG evaluation for the evidence of seizure disorder. MEDICATIONS: See the chart BACKGROUND ACTIVITY: There was artifacts in the recording. Likely the record showed diffuse low amplitude theta activity over both hemispheres. ACTIVATION: Hyperventilation: Not done Photic Stimulation: Not done Sleep: Not a down IMPRESSION: This is on inadequate but likely mildly abnormal EEG, this EEG seen in mild cerebral dysfunction due to metabolic/hypoxic encephalopathy or medication effects, please correlate clinically. The EKG channel showed a regular heart rate of 102/[place] [address] SUMIT SANTAMARIA MD Jul 22, 2024 20:47
[2024-07-23] VITALS (109 sets, daily range): BP systolic 66–182; BP diastolic 30–86; PULSE 83–127; RESP 16–37; TEMP 97.5–99.4; O2SAT 85–100
[2024-07-23 02:11] LABS: Base Excess 0.6 mmol/L (-2.0-3.0)
[2024-07-23 04:00] LABS: Basophils # (auto) 0 10 ^3/uL (0-0.2); Basophils % (auto) 0.3 % (0.0-2.0); Eosinophils # (auto) 0.2 10 ^3/uL (0-0.8); Eosinophils % (auto) 1.3 % (0.0-7.0); Hematocrit 35.2 % (41.0-53.0); Hemoglobin 11.4 g/dL (13.5-17.5); Lymphocytes # (auto) 0.5 10 ^3/uL (0.4-5.4); Lymphocytes % (auto) 4.2 % (10.0-50.0); Mean Corpuscular Hemoglobin 34.4 pg (28.0-32.0); Mean Corpuscular Hgb Conc. 32.4 g/dL (32.0-36.0); Mean Corpuscular Volume 106.4 fL (80.0-100.0); Monocytes # (auto) 0.7 10 ^3/uL (0-1.3); Monocytes % (auto) 5.7 % (0.0-12.0); Neutrophils # (auto) 11.5 10 ^3/uL (1.6-8.6); Neutrophils % (auto) 88.5 % (37.0-80.0); Platelet Count (auto) 119 10^3/uL (140-450); Red Blood Cells 3.31 10^6/uL (4.5-5.90); Red Cell Distribution Width 21.5 % (11.8-14.3)
[2024-07-23 04:29] LABS: Chloride 101 mmol/L (98-107); Sodium 140 mmol/L (136-145)
[2024-07-23 04:30] LABS: Anion Gap 17 (5-15); Carbon Dioxide 22 mmol/L (20-31)
[2024-07-23 04:50] LABS: Glucose 117 mg/dL (74-106); Potassium 5.3 mmol/L (3.5-5.1)
[2024-07-23 04:51] LABS: BUN/Creatinine Ratio 16.3 (10.0-20.0); Blood Urea Nitrogen 113 mg/dL (9-23); Magnesium 2.8 mg/dL (1.6-2.6)
[2024-07-23] MEDS: SODIUM CHL 0.9% 1000 ML BAG XX ONE (11:00)
--- NOTE | 2024-07-23 11:46 | DVHPN2 ---
Progress Note Date Seen: Jul 23, 2024 Has the PT tested + for MRSA If YES, has PT been informed?: No Medical Necessity Reason Pt with a Central, PICC or Fol: Yes The following are medically ne: Central Line Subjective Review of Systems: RESPIRATORY:Abnormal Other Systems: Patient seen and examined by myself in follow-up, patient remained BiPAP Patient examined on hemodialysis, blood pressure stable Objective vital signs Vital Sign Date Time Temp Pulse Resp B/P (MAP) Pulse Ox O2 Delivery O2 Flow Rate FiO2 07/23/24 09:53 98 169/72 86 Facial BiPAP Mask 60 07/23/24 06:45 22 07/23/24 04:00 98.8 98.8 07/22/24 22:00 30 Total Intake and Output 07/22/24 07/22/24 07/23/24 15:00 23:00 07:00 Intake Total 100 ml 332 ml 292 ml Output Total 30 ml 0 ml Balance 100 ml 302 ml 292 ml medications Current Medications Medications Dose Ordered Sig/Rey Route Start Time Stop Time Status Last Admin Dose Admin Vancomycin HCl 0 ml @ 0 mls/hr UD IV 07/08/24 17:00 Sodium Chloride 10 ml Q8HR IV 07/09/24 06:00 07/23/24 05:52 10 ML Vasopressin 20 units/Sodium Chloride 100 ml @ 9 mls/hr Q11H7M IV 07/09/24 13:15 07/14/24 08:47 9 MLS/HR Norepinephrine Bitartrate 32 mg/ Sodium Chloride 250 ml @ 0.938 mls/ hr Q24H IV 07/09/24 15:30 07/23/24 11:43 0.938 MLS/HR Phenylephrine HCl 80 mg/Sodium Chloride 250 ml @ 7.5 mls/hr Q24H IV 07/09/24 15:45 07/10/24 08:08 33.75 MLS/HR Epinephrine HCl 250 ml @ 7.5 mls/hr Q24H IV 07/09/24 17:00 07/10/24 05:30 7.5 MLS/HR Pantoprazole Sodium 40 mg DAILY IV 07/10/24 10:00 07/23/24 09:48 40 MG Epoetin Justus-epbx 10,000 unit MWF SC 07/14/24 21:00 07/21/24 11:14 10,000 UNIT Meropenem 50 ml @ 17 mls/hr Q24H IV 07/13/24 22:00 07/22/24 22:13 17 MLS/HR Albumin Human 50 ml @ 100 mls/hr PRN PRN IV 07/13/24 08:30 Cancel Albumin Human 50 ml @ 50 mls/hr PRN PRN IV 07/13/24 08:20 07/21/24 07:50 50 MLS/HR Enteral Nutritional Formula 1,000 ml 30ML/HR GT 07/13/24 12:00 07/22/24 00:49 1,000 ML Dexmedetomidine HCl 400 mcg/ Dextrose 100 ml @ 4.73 mls/hr Q21H9M IV 07/15/24 20:00 07/19/24 08:49 7.095 MLS/HR Lactulose 30 ml DAILY PO 07/17/24 10:00 07/23/24 09:48 30 ML Metoclopramide HCl 5 mg Q8HR IV 07/16/24 22:00 07/23/24 05:52 5 MG Albuterol 2.5 mg Q6HR HHN 07/18/24 18:00 07/23/24 07:01 2.5 MG Ipratropium [place] 0.5 mg Q6HR NEB 07/18/24 18:00 07/23/24 07:01 0.5 MG Micafungin Sodium 100 mg/Sodium Chloride 100 ml @ 100 mls/hr DAILY IV 07/20/24 10:00 07/23/24 09:52 100 MLS/HR Hydralazine HCl 10 mg Q4HR PRN IV 07/19/24 15:30 Hold 07/22/24 09:41 10 MG Diagnostic Test (Pha) 1 strip IQ4HR 07/21/24 14:00 07/23/24 08:19 1 STRIP Insulin Human Regular IQ4HR SC 07/21/24 14:00 07/23/24 01:08 3 UNITS Dextrose 50 ml UD PRN IV 07/21/24 13:00 Acetylcysteine 200 mg Q8HR NEB 07/21/24 22:00 07/24/24 21:59 07/23/24 07:01 200 MG Labetalol HCl 10 mg Q2HPRN PRN IV 07/22/24 11:15 Examination: LUNGS:Normal, CVS:Normal, MSK:Normal laboratory and microbiology Laboratory Tests 07/23/24 03:07 Test 07/23/24 03:07 Range/Units Serum Glucose 117 H 74-106 mg/dL Microbiology Date/Time Source Procedure Growth Status 07/17/24 15:35 Bronchial Washings Gram Stain - Final Resulted 07/17/24 15:35 Bronchial Washings Respiratory Culture - Preliminary Resulted 07/09/24 19:55 Trachea Gram Stain - Final Complete 07/09/24 19:55 Trachea Respiratory Culture - Final Complete 07/08/24 18:00 Blood Blood Culture - Final Escherichia coli - ESBL Complete Problem List/Assessment/Plan Problem List/Assessment/Plan ESRD on HD Acute respiratory failure, extubated 07/18 hyperkalemia, resolved Congestive heart failure, ejection fraction 25% uremic acidosis / lactic acidosis septic shock with gram-negative anabella bacteremia lower extremity wound anemia hypoglycemia Left pleural effusion Recommendations Continue with UF 4-5 L as tolerated Epogen 03071 IV post hemodialysis IV antibiotic Renal diet Thoracentesis will continue to follow Plan discussed with: Patient My Orders My Orders Orders - VAMSI LOPEZ MD Procedure Category Date Status Time Hemodialysis Orders ORDERS 07/23/24 Transmitted 07:00 Dialysis Nursing EV 07/23/24 In Process Message 07:00 Document Fluid Input EV 07/23/24 In Process And Outpu 07:00 Dietary Evaluation Review Comments: 1) If GI is accessible consider Nepro 1.8 @ 20 ml/hr with current rate of propofol on board 2) If pt remains NPO >7days of NPO status, provide TPN to meet at least 75% of estimated needs 3) Advance pt diet when medically feasible to a Renal Standard diet modified per [employer] POST CAR[employer]ER recommendations Expected Outcomes/Goals: 1) Pt to receive nutrition support within 7 days of NPO status 2) Pt diet to advance 3) F/U in 2-3 days VAMSI LOPEZ MD Jul 23, 2024 11:46
--- NOTE | 2024-07-23 12:14 | DVHPN2 ---
Subjective He is in more respiratory distress On BiPAP On HD now On Levophed drip Reviewed: Care Plan, H&P, Labs, Medications Changes from previous H/P or p: Changes General: Per HPI Eyes: No Pain, No Vision change, No Conjunctivae inflammation, No Eyelid inflammation, No Other, No Redness ENT: No Ear pain, No Ear discharge, No Nose pain, No Nose discharge, No Nose congestion, No Mouth pain, No Mouth swelling, No Throat pain, No Throat swelling, No Other Cardiovascular: Chest Pain Respiratory: Cough Gastrointestinal: No Nausea, No Vomiting, No Abdominal Pain, No Diarrhea, No Constipation, No Melena, No Hematochezia, No Other Genitourinary: No Dysuria, No Frequency, No Incontinence, No Hematuria, No Retention, No Other Musculoskeletal: other, leg pain Skin: Other Objective Vitals Vital Signs Date Time Temp Pulse Resp B/P (MAP) Pulse Ox O2 Delivery O2 Flow Rate FiO2 07/23/24 11:46 118 66/36 95 Facial BiPAP Mask 60 07/23/24 06:45 22 07/23/24 04:00 98.8 98.8 07/22/24 22:00 30 Intake/Output Intake and Output 07/23/24 07:00 Intake Total 724 ml Output Total 30 ml Balance 694 ml Intake Oral 60 ml IV Total 150 ml Tube Feeding 514 ml Output Urine Total 30 ml General Appearance: Alert, Other HEENT: PERRLA Lungs: Other (Rhonchi and crackles) Cardiovascular: Regular rate, Normal S1, Normal S2 Abdomen: Normal bowel sounds, Soft, No tenderness Musculoskeletal: Other (No motor movement) Neuro: Other (Unable to assess) Skin: Wounds (See nurse notes and pictures) Psych/Mental Status: Other (Unable to assess) Medications Current Medications Medications Dose Ordered Sig/Rey Route Start Time Stop Time Status Last Admin Dose Admin Vancomycin HCl 0 ml @ 0 mls/hr UD IV 07/08/24 17:00 Sodium Chloride 10 ml Q8HR IV 07/09/24 06:00 07/23/24 05:52 10 ML Vasopressin 20 units/Sodium Chloride 100 ml @ 9 mls/hr Q11H7M IV 07/09/24 13:15 07/14/24 08:47 9 MLS/HR Norepinephrine Bitartrate 32 mg/ Sodium Chloride 250 ml @ 0.938 mls/ hr Q24H IV 07/09/24 15:30 07/23/24 11:43 0.938 MLS/HR Phenylephrine HCl 80 mg/Sodium Chloride 250 ml @ 7.5 mls/hr Q24H IV 07/09/24 15:45 07/10/24 08:08 33.75 MLS/HR Epinephrine HCl 250 ml @ 7.5 mls/hr Q24H IV 07/09/24 17:00 07/10/24 05:30 7.5 MLS/HR Pantoprazole Sodium 40 mg DAILY IV 07/10/24 10:00 07/23/24 09:48 40 MG Epoetin Justus-epbx 10,000 unit MWF SC 07/14/24 21:00 07/21/24 11:14 10,000 UNIT Meropenem 50 ml @ 17 mls/hr Q24H IV 07/13/24 22:00 07/22/24 22:13 17 MLS/HR Albumin Human 50 ml @ 100 mls/hr PRN PRN IV 07/13/24 08:30 Cancel Albumin Human 50 ml @ 50 mls/hr PRN PRN IV 07/13/24 08:20 07/21/24 07:50 50 MLS/HR Enteral Nutritional Formula 1,000 ml 30ML/HR GT 07/13/24 12:00 07/22/24 00:49 1,000 ML Dexmedetomidine HCl 400 mcg/ Dextrose 100 ml @ 4.73 mls/hr Q21H9M IV 07/15/24 20:00 07/19/24 08:49 7.095 MLS/HR Lactulose 30 ml DAILY PO 07/17/24 10:00 07/23/24 09:48 30 ML Metoclopramide HCl 5 mg Q8HR IV 07/16/24 22:00 07/23/24 05:52 5 MG Albuterol 2.5 mg Q6HR HHN 07/18/24 18:00 07/23/24 07:01 2.5 MG Ipratropium [place] 0.5 mg Q6HR NEB 07/18/24 18:00 07/23/24 07:01 0.5 MG Micafungin Sodium 100 mg/Sodium Chloride 100 ml @ 100 mls/hr DAILY IV 07/20/24 10:00 07/23/24 09:52 100 MLS/HR Hydralazine HCl 10 mg Q4HR PRN IV 07/19/24 15:30 Hold 07/22/24 09:41 10 MG Diagnostic Test (Pha) 1 strip IQ4HR 07/21/24 14:00 07/23/24 11:53 1 STRIP Insulin Human Regular IQ4HR SC 07/21/24 14:00 07/23/24 01:08 3 UNITS Dextrose 50 ml UD PRN IV 07/21/24 13:00 Acetylcysteine 200 mg Q8HR NEB 07/21/24 22:00 07/24/24 21:59 07/23/24 07:01 200 MG Labetalol HCl 10 mg Q2HPRN PRN IV 07/22/24 11:15 Laboratory Results Laboratory Tests 07/23/24 03:07 Chemistry Test 07/23/24 03:07 Calcium Level 7.0 mg/dL (8.7-10.4) L Magnesium Level 2.8 mg/dL (1.6-2.6) H Blood Gas Results Test 07/23/24 00:18 Arterial Blood pH 7.521 (7.350-7.450) FiO2 % 30.0 Microbiology Microbiology Date/Time Source Procedure Growth Status 07/17/24 15:35 Bronchial Washings Gram Stain - Final Resulted 07/17/24 15:35 Bronchial Washings Respiratory Culture - Preliminary Resulted 07/09/24 19:55 Trachea Gram Stain - Final Complete 07/09/24 19:55 Trachea Respiratory Culture - Final Complete 07/08/24 18:00 Blood Blood Culture - Final Escherichia coli - ESBL Complete Assessment/Plan Assessment/Plan Severe sepsis with septic shock due to bacteremia with E. coli ESBL Bacteremia with E. coli ESBL Right leg infection / cellulitis: Better Metabolic acidosis: Better with HD ESRD on HD h/o kidney CA s/p nephrectomy Hyperkalemia: resolved Thrombocytopenia Coagulopathy LLL atelectasis and effusion CAD Mixed hyperlipidemia DM2 Obesity Hypoglycemia PLAN: 07/14/2024: Continue IV antibiotics: Meropenem and Vanco Vasopressors prn Tube feeding D%W for hypoglycemia, DC once tolerating feeding IV hydrocortisone Taper sedation as tolerated HD per nephrology Vascular surgery (Dr. Mcbride) is following ID consult 07/15/24: HD per nephrology Taper sedation as tolerated Taper down Levophed as tolerated Tube feeding DC IV fluids IV antibiotics Monitor closely 07/17/24: Hypocalcemia: Replace Ca++ IV Hypoalbuminemia: Albumin IV ESRD: HD per nephrology Sepsis: IV antibiotics Resp failure: C-PAP Constipation: Lactulose Tube feeding Thrombocytopenia: stable Transaminitis: Better Discussed with family at the bedside 07/18/24: C-PAP LUE doppler rule out DVT Extubation per Dr. Bermudez Meropenem and Vancomycin 07/19/2024: Hemodialysis per nephrology Monitor closely We will have to discuss the advance directives with the family again today 1 day come The patient is still confused and edematous Ultrasound of the left arm showed no DVT 07/20/24: CT head: Neg BiPAP prn HD per nephrology Off Levophed Meropenem Micafungin Vancomycin Neurology consult 07/21/24: Switch BiPAP to high-flow oxygen if possible Hemodialysis per nephrology IV antibiotics Monitor closely 07/22/24: Uncontrolled HTN: Add Labetalol prn IV Meropenem and Vanco Sepsis: Better HD 07/23/24: HD per nephrology IV antibiotics BiPAP Plan discussed with: Patient, Spouse, Other Date of Service: Jul 23, 2024 Billing Provider: DG AQUINO MD Common Visit Codes: NOT BILLABLE DG AQUINO MD Jul 23, 2024 12:14
--- NOTE | 2024-07-23 20:04 | DVHPN2 ---
Progress Note - Dictate Date Seen: Jul 23, 2024 Has the PT tested + for MRSA If YES, has PT been informed?: No Medical Necessity Reason Pt with a Central, PICC or Fol: Yes The following are medically ne: Central Line Subjective Mr. Daniel altered gentleman with a history of hypertension, dyslipidemia, coronary artery disease, kidney cancer status post nephrectomy, kidney failure on hemodialysis, the patient was brought to the [facility]. I have seen and examined the patient, I have discussed with his nurse, he looks weak, he was respiratory distress, on PAP, he has difficulty talking Blood culture, 07/08/2024: E coli HIV & II Ab, 07/10/24: Negative ABG, 07/09/2024: Metabolic acidosis, 07/10/2024: Metabolic acidosis, WBC/HB/PLT/MCV, 07/19/2024: 13.1/9.6/65/105.9 PT/INR/PTT, 07/11/2024: 35.6/3.63/38.4, 07/08/2024: 17.4/1.73/34.2 BUN/CR, 07/09/2024: 59/3.03 07/19/2024: 78/4.54 07/20/2024: 92/5.37 Lactic acid, 07/08/2019 5:3.1, 07/09/2024: 9.6, 07/10/24: 15.5, 07/11/2024: 449, 12.2 HGB A1c, : 3.8 CPK 07/08/2019 5:114, 07/19/2024: 1579 TBI/AST/ALT/AP, once the 925, 0.6/244/561/105, 07/09/2024: 1.1/306/563/101, 07/19/2024: 12/212/261/138 Hepatitis panel, : Negative TG/HDL/LDL/HDL, 07/10/2024: 364/60/5/<5 Vitamin B12, 07/19/2024: >4000 Folic acid 07/19/2024: 9.12 TSH, 07/10/2024: 0.33 EEG 07/19/2024: inadequate but likely mildly abnormal EEG Chest x-ray, 07/08/2024: Bronchovascular crowding. Underlying mild pulmonary vascular congestion can not be excluded Obscuration of the left hemidiaphragm which may be from overlying cardiac silhouette with underlying pleural effusion /atelectasis / pneumonia not excluded. Chest x-ray, 07/09/2024: 1. Left lower lobe opacity may reflect atelectasis or mild pneumonia. 2. Mild interstitial pulmonary edema. 3. Small left pleural effusion. 4. Lines and tubes as above (Endotracheal tube terminates 1.8 cm above the quin) Chest x-ray, 07/17/2024: Endotracheal tube terminates 4.8 cm from the quin. Enteric tube is overlying the plane of the stomach CT head, 07/19/2024: Atrophy. No acute intracranial pathology vital signs Vital Sign Date Time Temp Pulse Resp B/P (MAP) Pulse Ox O2 Delivery O2 Flow Rate FiO2 07/23/24 19:15 114 33 87/52 (64) 96 07/23/24 18:10 Facial BiPAP Mask 70 07/23/24 16:00 97.9 97.9 07/23/24 14:50 4 Total Intake and Output 07/22/24 07/22/24 07/23/24 15:00 23:00 07:00 Intake Total 100 ml 332 ml 292 ml Output Total 30 ml 0 ml Balance 100 ml 302 ml 292 ml medications Current Medications Medications Dose Ordered Sig/Rey Route Start Time Stop Time Status Last Admin Dose Admin Vancomycin HCl 0 ml @ 0 mls/hr UD IV 07/08/24 17:00 Sodium Chloride 10 ml Q8HR IV 07/09/24 06:00 07/23/24 14:30 10 ML Vasopressin 20 units/Sodium Chloride 100 ml @ 9 mls/hr Q11H7M IV 07/09/24 13:15 07/14/24 08:47 9 MLS/HR Norepinephrine Bitartrate 32 mg/ Sodium Chloride 250 ml @ 0.938 mls/ hr Q24H IV 07/09/24 15:30 07/23/24 11:43 0.938 MLS/HR Phenylephrine HCl 80 mg/Sodium Chloride 250 ml @ 7.5 mls/hr Q24H IV 07/09/24 15:45 07/10/24 08:08 33.75 MLS/HR Epinephrine HCl 250 ml @ 7.5 mls/hr Q24H IV 07/09/24 17:00 07/10/24 05:30 7.5 MLS/HR Pantoprazole Sodium 40 mg DAILY IV 07/10/24 10:00 07/23/24 09:48 40 MG Epoetin Justus-epbx 10,000 unit MWF SC 07/14/24 21:00 07/23/24 14:26 10,000 UNIT Meropenem 50 ml @ 17 mls/hr Q24H IV 07/13/24 22:00 07/22/24 22:13 17 MLS/HR Albumin Human 50 ml @ 100 mls/hr PRN PRN IV 07/13/24 08:30 Cancel Albumin Human 50 ml @ 50 mls/hr PRN PRN IV 07/13/24 08:20 07/23/24 14:29 50 MLS/HR Enteral Nutritional Formula 1,000 ml 30ML/HR GT 07/13/24 12:00 07/22/24 00:49 1,000 ML Dexmedetomidine HCl 400 mcg/ Dextrose 100 ml @ 4.73 mls/hr Q21H9M IV 07/15/24 20:00 07/19/24 08:49 7.095 MLS/HR Lactulose 30 ml DAILY PO 07/17/24 10:00 07/23/24 09:48 30 ML Metoclopramide HCl 5 mg Q8HR IV 07/16/24 22:00 07/23/24 14:00 5 MG Albuterol 2.5 mg Q6HR HHN 07/18/24 18:00 07/23/24 18:09 2.5 MG Ipratropium [place] 0.5 mg Q6HR NEB 07/18/24 18:00 07/23/24 18:09 0.5 MG Micafungin Sodium 100 mg/Sodium Chloride 100 ml @ 100 mls/hr DAILY IV 07/20/24 10:00 07/23/24 09:52 100 MLS/HR Hydralazine HCl 10 mg Q4HR PRN IV 07/19/24 15:30 Hold 07/22/24 09:41 10 MG Diagnostic Test (Pha) 1 strip IQ4HR 07/21/24 14:00 07/23/24 19:53 1 STRIP Insulin Human Regular IQ4HR SC 07/21/24 14:00 07/23/24 01:08 3 UNITS Dextrose 50 ml UD PRN IV 07/21/24 13:00 Acetylcysteine 200 mg Q8HR NEB 07/21/24 22:00 07/24/24 21:59 07/23/24 18:29 200 MG Labetalol HCl 10 mg Q2HPRN PRN IV 07/22/24 11:15 Bacitracin 1 applic DAILY TOP 07/24/24 10:00 objective General: the patient is well developed and nourished. MENTAL STATUS: Subjective SPEECH, LANGUAGE, HIGHER CORTICAL FUNCTION: Subjective CRANIAL NERVES: Pupils are equal, round and reactive. EOMs full and conjugate.Facial sensation intact in all three divisions bilaterally. Mandibular strength intact. Facial muscles symmetrical and strength intact. SENSATION: Sensation to touch and pinprick is ok MOTOR: Normal tone in the upper and lower extremity. Normal muscle bulk. No fasciculations. No abnormal movements or posturing. He does not move extremities foaming REFLEXES: Deep tendon reflexes are symmetrical. No pathological reflexes. CEREBELLAR/COORDINATION: Deferred GAIT/STATION: deferred laboratory and microbiology Laboratory Tests 07/23/24 03:07 Test 07/23/24 03:07 Range/Units Serum Glucose 117 H 74-106 mg/dL Problem List Altered mental status, improving Metabolic encephalopathy Hypoxic encephalopathy Toxic encephalopathy Hepatic encephalopathy Respiratory failure Sepsis/septic shock Pneumonia Cellulitis Metabolic acidosis Coagulopathy Elevated liver function test Thrombocytopenia Macrocytic anemia Elevated liver function tests ICU myopathy Assessment/Plan Monitoring Supportive treatment ICU care MR brain scan later Stabilize vitals Respiratory support/BiPAP Oxygen Antibiotics GI prophylaxis/pantoprazole Infectious disease on case Pulmonary on case Cardiology on case Nephrology on case More recommendation per clinical course This medical document was created using an electronic medical record system with [employer] dictation system. Although this document has been carefully reviewed, there may still be some phonetic and typographical errors. These areas are purely typographical due to imperfections of the software programs, and do not reflect any compromise in the patient's medical care Prognosis Critical Dietary Evaluation Review Comments: 1) If GI is accessible consider Nepro 1.8 @ 20 ml/hr with current rate of propofol on board 2) If pt remains NPO >7days of NPO status, provide TPN to meet at least 75% of estimated needs 3) Advance pt diet when medically feasible to a Renal Standard diet modified per DENTAL CERAMIST HELPER recommendations Expected Outcomes/Goals: 1) Pt to receive nutrition support within 7 days of NPO status 2) Pt diet to advance 3) F/U in 2-3 days Plan discussed with: Other SUMIT SANTAMARIA MD Jul 23, 2024 20:04
--- NOTE | 2024-07-23 20:52 | DVHPN2 ---
Progress Note - Dictate Date Seen: Jul 23, 2024 Has the PT tested + for MRSA If YES, has PT been informed?: No Medical Necessity Reason Pt with a Central, PICC or Fol: Yes The following are medically ne: Central Line Subjective Patient was seen and evaluated in follow up in the ICU. Patient on Bi-PAP. Patient appears lethargic and somnolent. Patient is noted with left hand edema. EEG: inadequate but likely mildly abnormal EEG, this EEG seen in mild cerebral dysfunction due to metabolic/hypoxic encephalopathy or medication effects. WBC 13, K 5.3, BUN 113, SHOWRO[employer] EXECUTIVE DIRECTOR 6.92, CA 7. vital signs Vital Sign Date Time Temp Pulse Resp B/P (MAP) Pulse Ox O2 Delivery O2 Flow Rate FiO2 07/23/24 09:53 98 169/72 86 Facial BiPAP Mask 60 07/23/24 06:45 22 07/23/24 04:00 98.8 98.8 07/22/24 22:00 30 Total Intake and Output 07/22/24 07/22/24 07/23/24 15:00 23:00 07:00 Intake Total 100 ml 332 ml 292 ml Output Total 30 ml 0 ml Balance 100 ml 302 ml 292 ml medications Current Medications Medications Dose Ordered Sig/Rey Route Start Time Stop Time Status Last Admin Dose Admin Vancomycin HCl 0 ml @ 0 mls/hr UD IV 07/08/24 17:00 Sodium Chloride 10 ml Q8HR IV 07/09/24 06:00 07/23/24 05:52 10 ML Vasopressin 20 units/Sodium Chloride 100 ml @ 9 mls/hr Q11H7M IV 07/09/24 13:15 07/14/24 08:47 9 MLS/HR Norepinephrine Bitartrate 32 mg/ Sodium Chloride 250 ml @ 0.938 mls/ hr Q24H IV 07/09/24 15:30 07/17/24 08:56 0.938 MLS/HR Phenylephrine HCl 80 mg/Sodium Chloride 250 ml @ 7.5 mls/hr Q24H IV 07/09/24 15:45 07/10/24 08:08 33.75 MLS/HR Epinephrine HCl 250 ml @ 7.5 mls/hr Q24H IV 07/09/24 17:00 07/10/24 05:30 7.5 MLS/HR Pantoprazole Sodium 40 mg DAILY IV 07/10/24 10:00 07/23/24 09:48 40 MG Epoetin Justus-epbx 10,000 unit MWF SC 07/14/24 21:00 07/21/24 11:14 10,000 UNIT Meropenem 50 ml @ 17 mls/hr Q24H IV 07/13/24 22:00 07/22/24 22:13 17 MLS/HR Albumin Human 50 ml @ 100 mls/hr PRN PRN IV 07/13/24 08:30 Cancel Albumin Human 50 ml @ 50 mls/hr PRN PRN IV 07/13/24 08:20 07/21/24 07:50 50 MLS/HR Enteral Nutritional Formula 1,000 ml 30ML/HR GT 07/13/24 12:00 07/22/24 00:49 1,000 ML Dexmedetomidine HCl 400 mcg/ Dextrose 100 ml @ 4.73 mls/hr Q21H9M IV 07/15/24 20:00 07/19/24 08:49 7.095 MLS/HR Lactulose 30 ml DAILY PO 07/17/24 10:00 07/23/24 09:48 30 ML Metoclopramide HCl 5 mg Q8HR IV 07/16/24 22:00 07/23/24 05:52 5 MG Albuterol 2.5 mg Q6HR HHN 07/18/24 18:00 07/23/24 07:01 2.5 MG Ipratropium [place] 0.5 mg Q6HR NEB 07/18/24 18:00 07/23/24 07:01 0.5 MG Micafungin Sodium 100 mg/Sodium Chloride 100 ml @ 100 mls/hr DAILY IV 07/20/24 10:00 07/23/24 09:52 100 MLS/HR Hydralazine HCl 10 mg Q4HR PRN IV 07/19/24 15:30 Hold 07/22/24 09:41 10 MG Diagnostic Test (Pha) 1 strip IQ4HR 07/21/24 14:00 07/23/24 08:19 1 STRIP Insulin Human Regular IQ4HR SC 07/21/24 14:00 07/23/24 01:08 3 UNITS Dextrose 50 ml UD PRN IV 07/21/24 13:00 Acetylcysteine 200 mg Q8HR NEB 07/21/24 22:00 07/24/24 21:59 07/23/24 07:01 200 MG Labetalol HCl 10 mg Q2HPRN PRN IV 07/22/24 11:15 objective GENERAL: Awake, altered. Morbidly obese. LUNGS: Decreased breath sounds. CARDIOVASCULAR: Heart sounds are good. ABDOMEN: Soft. EXT: BLE edema. SKIN: Ecchymosis to right upper thigh. laboratory and microbiology Laboratory Tests 07/23/24 03:07 Test 07/23/24 03:07 Range/Units Serum Glucose 117 H 74-106 mg/dL Problem List Hypotension secondary to septic shock. Coronary artery disease status post CABG in 2021. History of hypertension. Hyperlipidemia. Hyperkalemia. Acute anemia. Thrombocytopenia. Transaminitis. End-stage renal disease on hemodialysis. Renal cell carcinoma status post left nephrectomy. COPD. Asthma. Morbid obesity. Dilated cardiomyopathy. Assessment/Plan Continued all current supportive medical care. GI prophylactics. IV antibiotics as ordered. Vasopressors for hemodynamic support. Additional plan as per the hospital course. Critical care time of 45 minutes provided to include time spent evaluation of patient at bedside, when appropriate patient/family education for diagnosis, treatment plan, review of pertinent medical information and discussion of care with specialty providers and PCP. Dietary Evaluation Review Comments: 1) If GI is accessible consider Nepro 1.8 @ 20 ml/hr with current rate of propofol on board 2) If pt remains NPO >7days of NPO status, provide TPN to meet at least 75% of estimated needs 3) Advance pt diet when medically feasible to a Renal Standard diet modified per HEARING SPECIALIST recommendations Expected Outcomes/Goals: 1) Pt to receive nutrition support within 7 days of NPO status 2) Pt diet to advance 3) F/U in 2-3 days Plan discussed with: Patient FRIDA SIMMONS MD Jul 23, 2024 11:30
--- NOTE | 2024-07-23 23:35 | DVHPN2 ---
Progress Note - Dictate Date Seen: Jul 23, 2024 Has the PT tested + for MRSA If YES, has PT been informed?: No Medical Necessity Reason Pt with a Central, PICC or Fol: Yes The following are medically ne: Central Line Subjective Patient seen and examined at bedside. Currently on BiPAP Overnight events reviewed vital signs Vital Sign Date Time Temp Pulse Resp B/P (MAP) Pulse Ox O2 Delivery O2 Flow Rate FiO2 07/23/24 23:00 116 27 124/67 (86) 96 07/23/24 22:22 Bi-Pap+ 80 80 07/23/24 20:00 97.5 97.5 07/23/24 14:50 4 Total Intake and Output 07/22/24 07/22/24 07/23/24 15:00 23:00 07:00 Intake Total 100 ml 332 ml 292 ml Output Total 30 ml 0 ml Balance 100 ml 302 ml 292 ml medications Current Medications Medications Dose Ordered Sig/Rey Route Start Time Stop Time Status Last Admin Dose Admin Vancomycin HCl 0 ml @ 0 mls/hr UD IV 07/08/24 17:00 Sodium Chloride 10 ml Q8HR IV 07/09/24 06:00 07/23/24 22:00 10 ML Vasopressin 20 units/Sodium Chloride 100 ml @ 9 mls/hr Q11H7M IV 07/09/24 13:15 07/14/24 08:47 9 MLS/HR Norepinephrine Bitartrate 32 mg/ Sodium Chloride 250 ml @ 0.938 mls/ hr Q24H IV 07/09/24 15:30 07/23/24 11:43 0.938 MLS/HR Phenylephrine HCl 80 mg/Sodium Chloride 250 ml @ 7.5 mls/hr Q24H IV 07/09/24 15:45 07/10/24 08:08 33.75 MLS/HR Epinephrine HCl 250 ml @ 7.5 mls/hr Q24H IV 07/09/24 17:00 07/10/24 05:30 7.5 MLS/HR Pantoprazole Sodium 40 mg DAILY IV 07/10/24 10:00 07/23/24 09:48 40 MG Epoetin Justus-epbx 10,000 unit MWF SC 07/14/24 21:00 07/23/24 14:26 10,000 UNIT Meropenem 50 ml @ 17 mls/hr Q24H IV 07/13/24 22:00 07/23/24 21:38 17 MLS/HR Albumin Human 50 ml @ 100 mls/hr PRN PRN IV 07/13/24 08:30 Cancel Albumin Human 50 ml @ 50 mls/hr PRN PRN IV 07/13/24 08:20 07/23/24 14:29 50 MLS/HR Enteral Nutritional Formula 1,000 ml 30ML/HR GT 07/13/24 12:00 07/22/24 00:49 1,000 ML Dexmedetomidine HCl 400 mcg/ Dextrose 100 ml @ 4.73 mls/hr Q21H9M IV 07/15/24 20:00 07/19/24 08:49 7.095 MLS/HR Lactulose 30 ml DAILY PO 07/17/24 10:00 07/23/24 09:48 30 ML Metoclopramide HCl 5 mg Q8HR IV 07/16/24 22:00 07/23/24 21:41 5 MG Albuterol 2.5 mg Q6HR HHN 07/18/24 18:00 07/23/24 18:09 2.5 MG Ipratropium [place] 0.5 mg Q6HR NEB 07/18/24 18:00 07/23/24 18:09 0.5 MG Micafungin Sodium 100 mg/Sodium Chloride 100 ml @ 100 mls/hr DAILY IV 07/20/24 10:00 07/23/24 09:52 100 MLS/HR Hydralazine HCl 10 mg Q4HR PRN IV 07/19/24 15:30 Hold 07/22/24 09:41 10 MG Diagnostic Test (Pha) 1 strip IQ4HR 07/21/24 14:00 07/23/24 19:53 1 STRIP Insulin Human Regular IQ4HR SC 07/21/24 14:00 07/23/24 01:08 3 UNITS Dextrose 50 ml UD PRN IV 07/21/24 13:00 Acetylcysteine 200 mg Q8HR NEB 07/21/24 22:00 07/24/24 21:59 07/23/24 18:29 200 MG Labetalol HCl 10 mg Q2HPRN PRN IV 07/22/24 11:15 Bacitracin 1 applic DAILY TOP 07/24/24 10:00 objective Gen.: Patient lying in bed in no apparent distress. On BiPAP Head: Normocephalic, atraumatic. Eyes: EOMI/PERRLA. Ears: Normal hearing. Normal anatomy. Neck/trachea: Trachea midline, supple. Nose: Normal external anatomy. Mouth: Moist mucous membranes. Chest: Decreased air entry bilaterally. No wheezing or rhonchi. Cardiovascular: Positive S1, positive S2. Regular rate and rhythm. Abdomen: Positive bowel sounds in all 4 quadrants. Soft, non-tender, non- distended. : Deferred. Rectal: Deferred. Skin: Warm, dry. Intact. Extremities: 2+ radial pulses bilaterally. No lower extremity edema. Neuro: Awake, alert. Following commands. No gross motor or sensory deficits. Cranial nerves II through XII intact. Gait not assessed. laboratory and microbiology Laboratory Tests 07/23/24 03:07 Test 07/23/24 03:07 Range/Units Serum Glucose 117 H 74-106 mg/dL Assessment/Plan Impression: Acute hypoxic respiratory failure Pulmonary edema Necrotizing fasciitis Septic shock Morbid obesity Events: Currently on BiPAP w/ IPAP 12, EPAP 5, FiO2 70% Will increase EPAP to 8 Patient is awake, alert, follows commands Continue bronchodilators/Mucomyst Continue antibiotics Continue Micafungin Incentive spirometry Pressors for hemodynamic support On Levophed 2 mcg/min Titrate to keep MAP above 65 mmHg/SBP above 90 mmHg. On Levophed during hemodialysis - monitor hemodynamics CXR demonstrates pulmonary congestion, stable. No effusion or pneumothorax. Monitor hemoglobin Monitor platelet count NGT. Tube feeds for nutritional support Continue lactulose daily NTS PRN to clear secretions Head of bed elevation Aspiration precautions. Monitor WBC Wound care Physical therapy HD per Nephrology Monitor renal function Monitor electrolytes. Supplement as necessary. Nephrology recommendations appreciated U/S Doppler of left upper extremity negative for DVT. 07/17/24 - S/p therapeutic bronchoscopy w/ RLL BAL - cleared mucous plugging from L6-L10 and R6-R10 See separate procedure note for details. Labs and imaging reviewed. Rest of plan as noted below. Plan: s/p extubation on 07/18/24 Continue BiPAP w/ IPAP 12, EPAP 8, FiO2 70% Taper FiO2 as tolerated Off sedation Continue antibiotics. F/u cultures. Pressors for hemodynamic support On Levophed 2 mcg/min Titrate to keep MAP above 65 mmHg/SBP above 90 mmHg. On Levophed during hemodialysis - monitor hemodynamics Monitor renal function Monitor electrolytes. Supplement as necessary. Monitor ins and outs. GI prophylaxis. DVT prophylaxis. Prognosis: Poor given patient's multiple co-morbidities. Condition: Critical Rest of plan per hospitalist and other consultants. A total of 35 minutes of critical care time was spent reviewing the patient record, examining the patient, making a diagnostic and therapeutic plan, discussing this plan with the medical personnel, following up on diagnostic studies and following the patient for clinical stability excluding any and all procedures. At least 50% of this time was spent in direct, [id number] contact. Thank you Dr. Johnson, for allowing me to participate in this patient's care. Further recommendations will depend on the patient's clinical course. Please do not hesitate to contact me if you have any questions or concerns. This medical document was created using an electronic medical record system with [employer] dictation system. Although these documentations are being carefully reviewed, there may still be some phonetic and typographical changes. The errors are purely typographical, due to imperfection on the software program, and do not reflect any compromise in the patient's medical care. Dietary Evaluation Review Comments: 1) If GI is accessible consider Nepro 1.8 @ 20 ml/hr with current rate of propofol on board 2) If pt remains NPO >7days of NPO status, provide TPN to meet at least 75% of estimated needs 3) Advance pt diet when medically feasible to a Renal Standard diet modified per LAW FIRM CONSULTANT recommendations Expected Outcomes/Goals: 1) Pt to receive nutrition support within 7 days of NPO status 2) Pt diet to advance 3) F/U in 2-3 days Plan discussed with: Other (JACEK Anders) Critical Care Time(min): 35 EB DEJESUS MD Jul 23, 2024 23:35
[2024-07-24] VITALS (110 sets, daily range): BP systolic 82–158; BP diastolic 25–107; PULSE 97–125; RESP 15–42; TEMP 97.4–101; O2SAT 81–100
[2024-07-24 04:04] LABS: Basophils # (auto) 0.1 10 ^3/uL (0-0.2); Basophils % (auto) 0.3 % (0.0-2.0); Eosinophils # (auto) 0.3 10 ^3/uL (0-0.8); Eosinophils % (auto) 1.4 % (0.0-7.0); Hematocrit 40.6 % (41.0-53.0); Hemoglobin 13.3 g/dL (13.5-17.5); Lymphocytes # (auto) 1.5 10 ^3/uL (0.4-5.4); Mean Corpuscular Hemoglobin 34.6 pg (28.0-32.0); Mean Corpuscular Hgb Conc. 32.6 g/dL (32.0-36.0); Mean Corpuscular Volume 106.1 fL (80.0-100.0); Monocytes # (auto) 1.8 10 ^3/uL (0-1.3); Monocytes % (auto) 8.3 % (0.0-12.0); Neutrophils # (auto) 17.9 10 ^3/uL (1.6-8.6); Platelet Count (auto) 146 10^3/uL (140-450); Red Blood Cells 3.83 10^6/uL (4.5-5.90); White Blood Cell 21.6 10^3/uL (4.4-10.8)
[2024-07-24 04:20] LABS: Albumin 3.7 g/dL (3.2-4.8); Anion Gap 19 (5-15); Carbon Dioxide 23 mmol/L (20-31); Chloride 99 mmol/L (98-107); Glucose 88 mg/dL (74-106); Sodium 141 mmol/L (136-145); Total Protein 6.9 g/dL (5.7-8.2)
[2024-07-24 04:23] LABS: Alanine Aminotransferase 112 U/L (7-40); Alkaline Phosphatase 223 U/L (46-116); Aspartate Aminotransferase 156 U/L (13-40); BUN/Creatinine Ratio 13.2 (10.0-20.0); Bilirubin, Total 13.6 mg/dL (0.2-1.0); Blood Urea Nitrogen 79 mg/dL (9-23); Calcium 8.3 mg/dL (8.7-10.4); Magnesium 2.7 mg/dL (1.6-2.6); Potassium 5.3 mmol/L (3.5-5.1)
--- NOTE | 2024-07-24 06:17 | DVH ---
CHEST RADIOGRAPH Indication: vent Technique: Single frontal view of the chest was obtained Comparison: XY CHEST XRAY 1 VIEW on DOS: 07/22/24, XY CHEST PORTABLE on DOS: 07/20/24, XY CHEST PORTABL E on DOS: 07/19/24 IMPRESSION: Heart is prominent size with likely left pleural effusion, similar to prior examination. Mild pulmona ry vascular congestion has improved. Enteric tube appears unchanged. There are median sternotomy wi res.
[2024-07-24 07:22] LABS: Base Excess 1.5 mmol/L (-2.0-3.0)
--- NOTE | 2024-07-24 10:56 | DVHPN2 ---
Progress Note Date Seen: Jul 24, 2024 Has the PT tested + for MRSA If YES, has PT been informed?: No Medical Necessity Reason Pt with a Central, PICC or Fol: Yes The following are medically ne: Central Line Subjective Review of Systems: RESPIRATORY:Abnormal Other Systems: Patient seen and examined by myself today in follow-up, patient remained on BiPAP Objective vital signs Vital Sign Date Time Temp Pulse Resp B/P (MAP) Pulse Ox O2 Delivery O2 Flow Rate FiO2 07/24/24 10:03 111 146/78 97 Facial BiPAP Mask 30 07/24/24 09:30 23 07/24/24 08:15 98.4 98.4 07/23/24 14:50 4 Total Intake and Output 07/23/24 07/23/24 07/24/24 15:00 23:00 07:00 Intake Total 162.25 ml 264.626 ml 89.377 ml Output Total 4000 ml Balance 162.25 ml -3735.374 ml 89.377 ml medications Current Medications Medications Dose Ordered Sig/Rey Route Start Time Stop Time Status Last Admin Dose Admin Vancomycin HCl 0 ml @ 0 mls/hr UD IV 07/08/24 17:00 Sodium Chloride 10 ml Q8HR IV 07/09/24 06:00 07/24/24 05:21 10 ML Vasopressin 20 units/Sodium Chloride 100 ml @ 9 mls/hr Q11H7M IV 07/09/24 13:15 07/14/24 08:47 9 MLS/HR Norepinephrine Bitartrate 32 mg/ Sodium Chloride 250 ml @ 0.938 mls/ hr Q24H IV 07/09/24 15:30 07/23/24 11:43 0.938 MLS/HR Phenylephrine HCl 80 mg/Sodium Chloride 250 ml @ 7.5 mls/hr Q24H IV 07/09/24 15:45 07/10/24 08:08 33.75 MLS/HR Epinephrine HCl 250 ml @ 7.5 mls/hr Q24H IV 07/09/24 17:00 07/10/24 05:30 7.5 MLS/HR Pantoprazole Sodium 40 mg DAILY IV 07/10/24 10:00 07/24/24 10:00 40 MG Epoetin Justus-epbx 10,000 unit MWF [place] 07/14/24 21:00 07/23/24 14:26 10,000 UNIT Meropenem 50 ml @ 17 mls/hr Q24H IV 07/13/24 22:00 07/23/24 21:38 17 MLS/HR Albumin Human 50 ml @ 100 mls/hr PRN PRN IV 07/13/24 08:30 Cancel Albumin Human 50 ml @ 50 mls/hr PRN PRN IV 07/13/24 08:20 07/23/24 14:29 50 MLS/HR Enteral Nutritional Formula 1,000 ml 30ML/HR GT 07/13/24 12:00 07/22/24 00:49 1,000 ML Dexmedetomidine HCl 400 mcg/ Dextrose 100 ml @ 4.73 mls/hr Q21H9M IV 07/15/24 20:00 07/19/24 08:49 7.095 MLS/HR Lactulose 30 ml DAILY PO 07/17/24 10:00 07/23/24 09:48 30 ML Metoclopramide HCl 5 mg Q8HR IV 07/16/24 22:00 07/24/24 05:22 5 MG Albuterol 2.5 mg Q6HR HHN 07/18/24 18:00 07/24/24 06:31 2.5 MG Ipratropium [place] 0.5 mg Q6HR NEB 07/18/24 18:00 07/24/24 06:31 0.5 MG Micafungin Sodium 100 mg/Sodium Chloride 100 ml @ 100 mls/hr DAILY IV 07/20/24 10:00 07/24/24 10:01 100 MLS/HR Hydralazine HCl 10 mg Q4HR PRN IV 07/19/24 15:30 Hold 07/22/24 09:41 10 MG Diagnostic Test (Pha) 1 strip IQ4HR 07/21/24 14:00 07/24/24 08:32 1 STRIP Insulin Human Regular IQ4HR SC 07/21/24 14:00 07/23/24 01:08 3 UNITS Dextrose 50 ml UD PRN IV 07/21/24 13:00 Acetylcysteine 200 mg Q8HR NEB 07/21/24 22:00 07/24/24 21:59 07/24/24 06:31 200 MG Labetalol HCl 10 mg Q2HPRN PRN IV 07/22/24 11:15 Bacitracin 1 applic DAILY TOP 07/24/24 10:00 Examination: LUNGS:Normal, CVS:Normal, MSK:Normal laboratory and microbiology Laboratory Tests 07/24/24 03:05 Test 07/24/24 03:05 Range/Units Serum Glucose 88 74-106 mg/dL Microbiology Date/Time Source Procedure Growth Status 07/17/24 15:35 Bronchial Washings Gram Stain - Final Resulted 07/17/24 15:35 Bronchial Washings Respiratory Culture - Preliminary Resulted 07/09/24 19:55 Trachea Gram Stain - Final Complete 07/09/24 19:55 Trachea Respiratory Culture - Final Complete 07/08/24 18:00 Blood Blood Culture - Final Escherichia coli - ESBL Complete Problem List/Assessment/Plan Problem List/Assessment/Plan ESRD on HD Acute respiratory failure, extubated 07/18 hyperkalemia, resolved Congestive heart failure, ejection fraction 25% uremic acidosis / lactic acidosis septic shock with gram-negative anabella bacteremia lower extremity wound anemia hypoglycemia Left pleural effusion Recommendations Hemodialysis tomorrow Epogen 71475 IV post hemodialysis IV antibiotic Renal diet Thoracentesis will continue to follow Plan discussed with: Patient My Orders My Orders Orders - VAMSI LOPEZ MD Procedure Category Date Status Time Bacitracin Ointment PHA 07/24/24 In Process 10:00 Dietary Evaluation Review Comments: 1) If GI is accessible consider Nepro 1.8 @ 20 ml/hr with current rate of propofol on board 2) If pt remains NPO >7days of NPO status, provide TPN to meet at least 75% of estimated needs 3) Advance pt diet when medically feasible to a Renal Standard diet modified per DEALMAKER recommendations Expected Outcomes/Goals: 1) Pt to receive nutrition support within 7 days of NPO status 2) Pt diet to advance 3) F/U in 2-3 days VAMSI LOPEZ MD Jul 24, 2024 10:56
[2024-07-24] MEDS: SODIUM ZIRCONIUM CYCL 10 GM PAK PO ONE (11:10)
--- NOTE | 2024-07-24 12:11 | DVHPN2 ---
Reviewed: Care Plan, H&P, Labs, Medications Changes from previous H/P or p: No Changes General: Per HPI Eyes: No Pain, No Vision change, No Conjunctivae inflammation, No Eyelid inflammation, No Other, No Redness ENT: No Ear pain, No Ear discharge, No Nose pain, No Nose discharge, No Nose congestion, No Mouth pain, No Mouth swelling, No Throat pain, No Throat swelling, No Other Cardiovascular: Chest Pain Respiratory: Cough Gastrointestinal: No Nausea, No Vomiting, No Abdominal Pain, No Diarrhea, No Constipation, No Melena, No Hematochezia, No Other Genitourinary: No Dysuria, No Frequency, No Incontinence, No Hematuria, No Retention, No Other Musculoskeletal: other, leg pain Skin: Other Objective Vitals Vital Signs Date Time Temp Pulse Resp B/P (MAP) Pulse Ox O2 Delivery O2 Flow Rate FiO2 07/24/24 10:03 111 146/78 97 Facial BiPAP Mask 30 07/24/24 09:30 23 07/24/24 08:15 98.4 98.4 07/23/24 14:50 4 Intake/Output Intake and Output 07/24/24 07:00 Intake Total 516.253 ml Output Total 4000 ml Balance -3483.747 ml Intake Oral 30 ml IV Total 266.253 ml Tube Feeding 220 ml Output Urine Total 0 ml Other 4000 ml # Voids 1 # Bowel Movements 1 General Appearance: Alert, Cooperative, Other HEENT: PERRLA Lungs: Other (Rhonchi and crackles) Cardiovascular: Regular rate, Normal S1, Normal S2 Abdomen: Normal bowel sounds, Soft, No tenderness Musculoskeletal: Other (No motor movement) Neuro: Other (Unable to assess) Skin: Wounds (See nurse notes and pictures) Psych/Mental Status: Other (Unable to assess) Medications Current Medications Medications Dose Ordered Sig/Rey Route Start Time Stop Time Status Last Admin Dose Admin Vancomycin HCl 0 ml @ 0 mls/hr UD IV 07/08/24 17:00 Sodium Chloride 10 ml Q8HR IV 07/09/24 06:00 07/24/24 05:21 10 ML Vasopressin 20 units/Sodium Chloride 100 ml @ 9 mls/hr Q11H7M IV 07/09/24 13:15 07/14/24 08:47 9 MLS/HR Norepinephrine Bitartrate 32 mg/ Sodium Chloride 250 ml @ 0.938 mls/ hr Q24H IV 07/09/24 15:30 07/23/24 11:43 0.938 MLS/HR Phenylephrine HCl 80 mg/Sodium Chloride 250 ml @ 7.5 mls/hr Q24H IV 07/09/24 15:45 07/10/24 08:08 33.75 MLS/HR Epinephrine HCl 250 ml @ 7.5 mls/hr Q24H IV 07/09/24 17:00 07/10/24 05:30 7.5 MLS/HR Pantoprazole Sodium 40 mg DAILY IV 07/10/24 10:00 07/24/24 10:00 40 MG Epoetin Justus-epbx 10,000 unit MWF SC 07/14/24 21:00 07/23/24 14:26 10,000 UNIT Meropenem 50 ml @ 17 mls/hr Q24H IV 07/13/24 22:00 07/23/24 21:38 17 MLS/HR Albumin Human 50 ml @ 100 mls/hr PRN PRN IV 07/13/24 08:30 Cancel Albumin Human 50 ml @ 50 mls/hr PRN PRN IV 07/13/24 08:20 07/23/24 14:29 50 MLS/HR Enteral Nutritional Formula 1,000 ml 30ML/HR GT 07/13/24 12:00 07/22/24 00:49 1,000 ML Dexmedetomidine HCl 400 mcg/ Dextrose 100 ml @ 4.73 mls/hr Q21H9M IV 07/15/24 20:00 07/19/24 08:49 7.095 MLS/HR Lactulose 30 ml DAILY PO 07/17/24 10:00 07/23/24 09:48 30 ML Metoclopramide HCl 5 mg Q8HR IV 07/16/24 22:00 07/24/24 05:22 5 MG Albuterol 2.5 mg Q6HR HHN 07/18/24 18:00 07/24/24 06:31 2.5 MG Ipratropium [place] 0.5 mg Q6HR NEB 07/18/24 18:00 07/24/24 06:31 0.5 MG Micafungin Sodium 100 mg/Sodium Chloride 100 ml @ 100 mls/hr DAILY IV 07/20/24 10:00 07/24/24 10:01 100 MLS/HR Hydralazine HCl 10 mg Q4HR PRN IV 07/19/24 15:30 Hold 07/22/24 09:41 10 MG Diagnostic Test (Pha) 1 strip IQ4HR 07/21/24 14:00 07/24/24 08:32 1 STRIP Insulin Human Regular IQ4HR SC 07/21/24 14:00 07/23/24 01:08 3 UNITS Dextrose 50 ml UD PRN IV 07/21/24 13:00 Acetylcysteine 200 mg Q8HR NEB 07/21/24 22:00 07/24/24 21:59 07/24/24 06:31 200 MG Labetalol HCl 10 mg Q2HPRN PRN IV 07/22/24 11:15 Bacitracin 1 applic DAILY TOP 07/24/24 10:00 Laboratory Results Laboratory Tests 07/24/24 03:05 Chemistry Test 07/24/24 03:05 Albumin 3.7 g/dL (3.2-4.8) Calcium Level 8.3 mg/dL (8.7-10.4) L Magnesium Level 2.7 mg/dL (1.6-2.6) H Total Protein 6.9 g/dL (5.7-8.2) LFT Test 07/24/24 03:05 Alanine Aminotransferase (ALT) 112 U/L (7-40) H Alkaline Phosphatase 223 U/L (46-116) H Aspartate Amino Transferase (AST) 156 U/L (13-40) H Total Bilirubin 13.6 mg/dL (0.2-1.0) H Blood Gas Results Test 07/23/24 16:12 07/24/24 07:16 Arterial Blood pH 7.571 (7.350-7.450) 7.500 (7.350-7.450) FiO2 % 45.0 40.0 Microbiology Microbiology Date/Time Source Procedure Growth Status 07/17/24 15:35 Bronchial Washings Gram Stain - Final Resulted 07/17/24 15:35 Bronchial Washings Respiratory Culture - Preliminary Resulted 07/09/24 19:55 Trachea Gram Stain - Final Complete 07/09/24 19:55 Trachea Respiratory Culture - Final Complete 07/08/24 18:00 Blood Blood Culture - Final Escherichia coli - ESBL Complete Labs and/or images reviewed: Labs reviewed by me, Image(s) reviewed by me Assessment/Plan Assessment/Plan Severe sepsis with septic shock due to bacteremia with E. coli ESBL Bacteremia with E. coli ESBL Right leg infection / cellulitis: Better Metabolic acidosis: Better with HD ESRD on HD h/o kidney CA s/p nephrectomy Hyperkalemia: resolved Thrombocytopenia Coagulopathy LLL atelectasis and effusion CAD Mixed hyperlipidemia DM2 Obesity Hypoglycemia PLAN: 07/14/2024: Continue IV antibiotics: Meropenem and Vanco Vasopressors prn Tube feeding D%W for hypoglycemia, DC once tolerating feeding IV hydrocortisone Taper sedation as tolerated HD per nephrology Vascular surgery (Dr. Mcbride) is following ID consult 07/15/24: HD per nephrology Taper sedation as tolerated Taper down Levophed as tolerated Tube feeding DC IV fluids IV antibiotics Monitor closely 07/17/24: Hypocalcemia: Replace Ca++ IV Hypoalbuminemia: Albumin IV ESRD: HD per nephrology Sepsis: IV antibiotics Resp failure: C-PAP Constipation: Lactulose Tube feeding Thrombocytopenia: stable Transaminitis: Better Discussed with family at the bedside 07/18/24: C-PAP LUE doppler rule out DVT Extubation per Dr. Bermudez Meropenem and Vancomycin 07/19/2024: Hemodialysis per nephrology Monitor closely We will have to discuss the advance directives with the family again today 1 day come The patient is still confused and edematous Ultrasound of the left arm showed no DVT 07/20/24: CT head: Neg BiPAP prn HD per nephrology Off Levophed Meropenem Micafungin Vancomycin Neurology consult 07/21/24: Switch BiPAP to high-flow oxygen if possible Hemodialysis per nephrology IV antibiotics Monitor closely 07/22/24: Uncontrolled HTN: Add Labetalol prn IV Meropenem and Vanco Sepsis: Better HD 07/23/24: HD per nephrology IV antibiotics BiPAP 07/24/2024: pt appears to be working hard with accessory muscles being on Bipap. possible intubation if needed continue with IV Abx HD per Nephro. Anuric. No schafer's Plan discussed with: Other (nursing stafff) Date of Service: Jul 24, 2024 Billing Provider: DALLAS STREETER DO Common Visit Codes: [id number] INP/OBS CARE(HIGH) DALLAS STREETER DO Jul 24, 2024 12:11
--- NOTE | 2024-07-24 14:02 | DVHPN2 ---
Progress Note - Dictate Date Seen: Jul 24, 2024 Has the PT tested + for MRSA If YES, has PT been informed?: No Medical Necessity Reason Pt with a Central, PICC or Fol: Yes The following are medically ne: Central Line Subjective Patient was seen and evaluated in follow up in the ICU. Patient on Bi-PAP, 30% FiO2. Patient's at bedside. Patient has edema of both upper and lower extremities. Patient's right leg is noted to be covered and infected with necrotizing fasciitis. WBC 21.6, K 5.3, BUN 79, ROLL UP GUIDER OPERATOR 6, AST 156, ALT 112. Chest x-ray shows mild pulmonary vascular congestion has improved. vital signs Vital Sign Date Time Temp Pulse Resp B/P (MAP) Pulse Ox O2 Delivery O2 Flow Rate FiO2 07/24/24 10:03 111 146/78 97 Facial BiPAP Mask 30 07/24/24 09:30 23 07/24/24 08:15 98.4 98.4 07/23/24 14:50 4 Total Intake and Output 07/23/24 07/23/24 07/24/24 15:00 23:00 07:00 Intake Total 162.25 ml 264.626 ml 89.377 ml Output Total 4000 ml Balance 162.25 ml -3735.374 ml 89.377 ml medications Current Medications Medications Dose Ordered Sig/Rey Route Start Time Stop Time Status Last Admin Dose Admin Vancomycin HCl 0 ml @ 0 mls/hr UD IV 07/08/24 17:00 Sodium Chloride 10 ml Q8HR IV 07/09/24 06:00 07/24/24 05:21 10 ML Vasopressin 20 units/Sodium Chloride 100 ml @ 9 mls/hr Q11H7M IV 07/09/24 13:15 07/14/24 08:47 9 MLS/HR Norepinephrine Bitartrate 32 mg/ Sodium Chloride 250 ml @ 0.938 mls/ hr Q24H IV 07/09/24 15:30 07/23/24 11:43 0.938 MLS/HR Phenylephrine HCl 80 mg/Sodium Chloride 250 ml @ 7.5 mls/hr Q24H IV 07/09/24 15:45 07/10/24 08:08 33.75 MLS/HR Epinephrine HCl 250 ml @ 7.5 mls/hr Q24H IV 07/09/24 17:00 07/10/24 05:30 7.5 MLS/HR Pantoprazole Sodium 40 mg DAILY IV 07/10/24 10:00 07/24/24 10:00 40 MG Epoetin Justus-epbx 10,000 unit MWF SC 07/14/24 21:00 07/23/24 14:26 10,000 UNIT Meropenem 50 ml @ 17 mls/hr Q24H IV 07/13/24 22:00 07/23/24 21:38 17 MLS/HR Albumin Human 50 ml @ 100 mls/hr PRN PRN IV 07/13/24 08:30 Cancel Albumin Human 50 ml @ 50 mls/hr PRN PRN IV 07/13/24 08:20 07/23/24 14:29 50 MLS/HR Enteral Nutritional Formula 1,000 ml 30ML/HR GT 07/13/24 12:00 07/22/24 00:49 1,000 ML Dexmedetomidine HCl 400 mcg/ Dextrose 100 ml @ 4.73 mls/hr Q21H9M IV 07/15/24 20:00 07/19/24 08:49 7.095 MLS/HR Lactulose 30 ml DAILY PO 07/17/24 10:00 07/23/24 09:48 30 ML Metoclopramide HCl 5 mg Q8HR IV 07/16/24 22:00 07/24/24 05:22 5 MG Albuterol 2.5 mg Q6HR HHN 07/18/24 18:00 07/24/24 06:31 2.5 MG Ipratropium [place] 0.5 mg Q6HR NEB 07/18/24 18:00 07/24/24 06:31 0.5 MG Micafungin Sodium 100 mg/Sodium Chloride 100 ml @ 100 mls/hr DAILY IV 07/20/24 10:00 07/24/24 10:01 100 MLS/HR Hydralazine HCl 10 mg Q4HR PRN IV 07/19/24 15:30 Hold 07/22/24 09:41 10 MG Diagnostic Test (Pha) 1 strip IQ4HR 07/21/24 14:00 07/24/24 08:32 1 STRIP Insulin Human Regular IQ4HR SC 07/21/24 14:00 07/23/24 01:08 3 UNITS Dextrose 50 ml UD PRN IV 07/21/24 13:00 Acetylcysteine 200 mg Q8HR NEB 07/21/24 22:00 07/24/24 21:59 07/24/24 06:31 200 MG Labetalol HCl 10 mg Q2HPRN PRN IV 07/22/24 11:15 Bacitracin 1 applic DAILY TOP 07/24/24 10:00 objective GENERAL: Awake, altered. Morbidly obese. LUNGS: Decreased breath sounds. CARDIOVASCULAR: Heart sounds are good. ABDOMEN: Soft. EXT: BLE edema. SKIN: Ecchymosis to right upper thigh. laboratory and microbiology Laboratory Tests 07/24/24 03:05 Test 07/24/24 03:05 Range/Units Serum Glucose 88 74-106 mg/dL Problem List Hypotension secondary to septic shock. Coronary artery disease status post CABG in 2021. History of hypertension. Hyperlipidemia. Hyperkalemia. Acute anemia. Thrombocytopenia. Transaminitis. End-stage renal disease on hemodialysis. Renal cell carcinoma status post left nephrectomy. COPD. Asthma. Morbid obesity. Dilated cardiomyopathy. Assessment/Plan Continued all current supportive medical care. GI prophylactics. IV antibiotics as ordered. Vasopressors for hemodynamic support. Additional plan as per the hospital course. Critical care time of 45 minutes provided to include time spent evaluation of patient at bedside, when appropriate patient/family education for diagnosis, treatment plan, review of pertinent medical information and discussion of care with specialty providers and PCP. Dietary Evaluation Review Comments: 1) If GI is accessible consider Nepro 1.8 @ 20 ml/hr with current rate of propofol on board 2) If pt remains NPO >7days of NPO status, provide TPN to meet at least 75% of estimated needs 3) Advance pt diet when medically feasible to a Renal Standard diet modified per VIBRATION ENGINEER recommendations Expected Outcomes/Goals: 1) Pt to receive nutrition support within 7 days of NPO status 2) Pt diet to advance 3) F/U in 2-3 days Plan discussed with: Patient FRIDA SIMMONS MD Jul 24, 2024 11:54
[2024-07-24] MEDS: BACITRACIN TOP OINT 1 UD PKG TOP SCH (15:17)
--- NOTE | 2024-07-24 17:56 | DVHPN2 ---
Consult Progress Note Date Seen: Jul 24, 2024 Subjective Patient reports: Feels better (off pressors, more recently restarted in last 2 days) Objective vital signs Vital Sign Date Time Temp Pulse Resp B/P (MAP) Pulse Ox O2 Delivery O2 Flow Rate FiO2 07/24/24 16:22 22 100 Nasal Cannula* 3 32 07/24/24 16:22 104 07/24/24 15:00 91/46 (61) 07/24/24 12:00 98.2 98.2 Total Intake and Output 07/23/24 07/23/24 07/24/24 15:00 23:00 07:00 Intake Total 162.25 ml 264.626 ml 87.502 ml Output Total 4000 ml Balance 162.25 ml -3735.374 ml 87.502 ml medications Current Medications Medications Dose Ordered Sig/Rey Route Start Time Stop Time Status Last Admin Dose Admin Vancomycin HCl 0 ml @ 0 mls/hr UD IV 07/08/24 17:00 Sodium Chloride 10 ml Q8HR IV 07/09/24 06:00 07/24/24 14:00 10 ML Vasopressin 20 units/Sodium Chloride 100 ml @ 9 mls/hr Q11H7M IV 07/09/24 13:15 07/14/24 08:47 9 MLS/HR Norepinephrine Bitartrate 32 mg/ Sodium Chloride 250 ml @ 0.938 mls/ hr Q24H IV 07/09/24 15:30 07/23/24 11:43 0.938 MLS/HR Phenylephrine HCl 80 mg/Sodium Chloride 250 ml @ 7.5 mls/hr Q24H IV 07/09/24 15:45 07/10/24 08:08 33.75 MLS/HR Epinephrine HCl 250 ml @ 7.5 mls/hr Q24H IV 07/09/24 17:00 07/10/24 05:30 7.5 MLS/HR Pantoprazole Sodium 40 mg DAILY IV 07/10/24 10:00 07/24/24 10:00 40 MG Epoetin Justus-epbx 10,000 unit MWF SC 07/14/24 21:00 07/23/24 14:26 10,000 UNIT Meropenem 50 ml @ 17 mls/hr Q24H IV 07/13/24 22:00 07/23/24 21:38 17 MLS/HR Albumin Human 50 ml @ 100 mls/hr PRN PRN IV 07/13/24 08:30 Cancel Albumin Human 50 ml @ 50 mls/hr PRN PRN IV 07/13/24 08:20 07/23/24 14:29 50 MLS/HR Enteral Nutritional Formula 1,000 ml 30ML/HR GT 07/13/24 12:00 07/24/24 15:41 1,000 ML Dexmedetomidine HCl 400 mcg/ Dextrose 100 ml @ 4.73 mls/hr Q21H9M IV 07/15/24 20:00 07/19/24 08:49 7.095 MLS/HR Lactulose 30 ml DAILY PO 07/17/24 10:00 07/23/24 09:48 30 ML Metoclopramide HCl 5 mg Q8HR IV 07/16/24 22:00 07/24/24 05:22 5 MG Albuterol 2.5 mg Q6HR HHN 07/18/24 18:00 07/24/24 11:53 2.5 MG Ipratropium [place] 0.5 mg Q6HR NEB 07/18/24 18:00 07/24/24 11:53 0.5 MG Micafungin Sodium 100 mg/Sodium Chloride 100 ml @ 100 mls/hr DAILY IV 07/20/24 10:00 07/24/24 10:01 100 MLS/HR Hydralazine HCl 10 mg Q4HR PRN IV 07/19/24 15:30 Hold 07/22/24 09:41 10 MG Diagnostic Test (Pha) 1 strip IQ4HR 07/21/24 14:00 07/24/24 16:10 1 STRIP Insulin Human Regular IQ4HR SC 07/21/24 14:00 07/23/24 01:08 3 UNITS Dextrose 50 ml UD PRN IV 07/21/24 13:00 Acetylcysteine 200 mg Q8HR NEB 07/21/24 22:00 07/24/24 21:59 07/24/24 11:54 200 MG Labetalol HCl 10 mg Q2HPRN PRN IV 07/22/24 11:15 Bacitracin 1 applic DAILY TOP 07/24/24 10:00 07/24/24 15:17 1 APPLIC PHYSICAL EXAM: - GENERAL: Alert and oriented x 3. No acute distress. Well-nourished. - EYES: EOMI. Anicteric. - HENT: Moist mucous membranes. No scleral icterus. No cervical lymphadenopathy. - LUNGS: Clear to auscultation bilaterally. No accessory muscle use. - CARDIOVASCULAR: Regular rate and rhythm. No murmur. No JVD. - ABDOMEN: Soft, non-tender and non-distended. No palpable masses. - EXTREMITIES: No edema. Non-tender.?SKIN: No rashes or lesions. Warm. - NEUROLOGIC: No focal neurological deficits. CN II-XII grossly intact, but not individually tested - PSYCHIATRIC: Cooperative. Appropriate mood and affect. laboratory and microbiology Laboratory Tests 07/24/24 03:05 Test 07/24/24 03:05 Range/Units Serum Glucose 88 74-106 mg/dL Problem List/Assessment/Plan Problem List/Assessment/Plan ID Problem List: - Septic shock - Necrotizing fasciitis of right lower extremity - End-stage renal disease on hemodialysis - Kidney cancer status post nephrectomy - Coronary artery disease - Hyperlipidemia - Status post CABG - ESBL Bacteria - Pneumonia Assessment This is a 58 y.o. male with a past medical history of kidney cancer status post nephrectomy, end-stage renal disease on hemodialysis, coronary artery disease, hyperlipidemia, and status post CABG, who presents with chest pain, fever, and right thigh tenderness concerning for necrotizing fasciitis. On admission, the patient had a temperature of 104F, hypotension (BP 78/45 mmHg), lactic acid 3.8 mmol/L, elevated AST (3044 U/L) and ALT (560 U/L), WBC count 37,000/mm, hemoglobin 7.5 g/dL, and platelets 62,000/mm. Physical examination notable for right thigh tenderness and generalized weakness. Initial imaging included CT scan of the right thigh showing subcutaneous edema with no gas in soft tissues and small bilateral knee effusions. Chest CT revealed bronchiovascular crowding; underlying pulmonary vascular condition cannot be excluded. Blood cultures are preliminarily positive for gram-negative rods. Respiratory cultures show gram-positive issa. An anaerobic bottle was positive for gram- negative rods. Laboratory studies reveal persistent elevation of liver enzymes with AST 3009 U/L and ALT 1976 U/L. Lactic acid increased to 15 mmol/L, platelets decreased to 32,000/mm. Peripheral smear shows [place] cells. Potassium is elevated at 6 mEq/L. The patient is intubated and sedated for acute hypoxic respiratory failure and altered mental status. 07/10: Undergoing ultra filtration and whitecount is elevated. Pressures are starting to come down since initiating meropenem and platelets are still low at 57 07/11: has an elevated whitecount of 19.1 , LFTs and renal function continue to worsen. blood cultures show ESBL E Coli . chest xray shows a left small bascular airspace disease . Fibrinogen is 433 appears to be adequate and patient is not having any additional signs of bleed . hemoglobin is stable at 8.4 and can hold off on additional transfusions outside of keeping hemoglobin above 7 and platelets above 50 07/12: whitecount is 28.43 , liver enzymes remain elevated at 2955 ALT and 2723 AST , [place] [address] 07/24: extubated 2 days ago tolerated cpap on trickle feeds remains somewhat altered leukocytosis rising, restarted on pressors for last 2 days sacral ulcer present, thigh cellulitis resolved, respiratory culture w/ filamentus fungi Plan: - keep MAP goal to 65 for patient to maintain blood pressure support - check blood culture to confirm clearance of bacteremia - stop micafungin, start amphotericin B - Continue meropenem for broad-spectrum coverage targeting ESBL e.coli bacteremia, will pull off antibiotics in the coming days now that patient is sp 14 days course. - continue vancomycin empirically in setting of septic shock - Surgical Consultation: Agree with general surgeon that clinical picture favors hematoma vs cellulitis , no signs of necrotizing infection at this time - Supportive Care: Continue vasopressor support with norepinephrine (Levophed) and epinephrine as needed for septic shock. - Laboratory Monitoring: Recheck laboratory values including CBC, CMP, lactic acid, and coagulation profile. Monitor liver function tests. - Renal Management: Coordinate with nephrology for hemodialysis management. - Isolation Precautions: Standard precautions. Authorized and Performed by: sangeteha melendrez Total critical care time: Approximately 75 minutes Due to a high probability of clinically significant, life threatening deterioration, the patient required my highest level of preparedness to intervene emergently and I personally spent this critical care time directly and personally managing the patient. This critical care time included obtaining a history; examining the patient; pulse oximetry; ordering and review of studies; arranging urgent treatment with development of a management plan; evaluation of patient's response to treatment; frequent reassessment; and, discussions with other providers. This critical care time was performed to assess and manage the high probability of imminent, life-threatening deterioration that could result in multi-organ failure. It was exclusive of separately billable procedures and treating other patients and teaching time. Plan discussed with: Patient Dietary Evaluation Review Comments: 1) If GI is accessible consider Nepro 1.8 @ 20 ml/hr with current rate of propofol on board 2) If pt remains NPO >7days of NPO status, provide TPN to meet at least 75% of estimated needs 3) Advance pt diet when medically feasible to a Renal Standard diet modified per [employer] recommendations Expected Outcomes/Goals: 1) Pt to receive nutrition support within 7 days of NPO status 2) Pt diet to advance 3) F/U in 2-3 days SANGEETHA MELENDREZ MD Jul 24, 2024 17:56
[2024-07-24] MEDS: diphenhdrAMINE HCL 50 MG/1 ML VL IV SCH (21:22)
[2024-07-24] MEDS: ACETAMINOPHEN 325 MG TAB PO SCH (21:23)
[2024-07-24] MEDS: D5W 5% IV SCH (21:24)
[2024-07-24] MEDS: AMPHOTERICIN B LIPOSOME IV SCH (21:24)
--- NOTE | 2024-07-24 23:14 | DVHPN2 ---
Progress Note - Dictate Date Seen: Jul 24, 2024 Has the PT tested + for MRSA If YES, has PT been informed?: No Medical Necessity Reason Pt with a Central, PICC or Fol: Yes The following are medically ne: Central Line Subjective Mr. Daniel altered gentleman with a history of hypertension, dyslipidemia, coronary artery disease, kidney cancer status post nephrectomy, kidney failure on hemodialysis, the patient was brought to the [facility]. I have seen and examined the patient, I have discussed with his nurse, he looks better than yesterday, on BiPAP, he is oriented to person only He follows verbal commands, he can move the arms and the legs a little bit Blood culture, 07/08/2024: E coli HIV & II Ab, 07/10/24: Negative ABG, 07/09/2024: Metabolic acidosis, 07/10/2024: Metabolic acidosis, WBC/HB/PLT/MCV, 07/19/2024: 13.1/9.6/65/105.9 PT/INR/PTT, 07/11/2024: 35.6/3.63/38.4, 07/08/2024: 17.4/1.73/34.2 BUN/CR, 07/09/2024: 59/3.03 07/19/2024: 78/4.54 07/20/2024: 92/5.37 Lactic acid, 07/08/2019 5:3.1, 07/09/2024: 9.6, 07/10/24: 15.5, 07/11/2024: 449, 12.2 HGB A1c, : 3.8 CPK 07/08/2019 5:114, 07/19/2024: 1579 TBI/AST/ALT/AP, once the 925, 0.6/244/561/105, 07/09/2024: 1.1/306/563/101, 07/19/2024: 12/212/261/138 Hepatitis panel, : Negative TG/HDL/LDL/HDL, 07/10/2024: 364/60/5/<5 Vitamin B12, 07/19/2024: >4000 Folic acid 07/19/2024: 9.12 TSH, 07/10/2024: 0.33 EEG 07/19/2024: inadequate but likely mildly abnormal EEG Chest x-ray, 07/08/2024: Bronchovascular crowding. Underlying mild pulmonary vascular congestion can not be excluded Obscuration of the left hemidiaphragm which may be from overlying cardiac silhouette with underlying pleural effusion /atelectasis / pneumonia not excluded. Chest x-ray, 07/09/2024: 1. Left lower lobe opacity may reflect atelectasis or mild pneumonia. 2. Mild interstitial pulmonary edema. 3. Small left pleural effusion. 4. Lines and tubes as above (Endotracheal tube terminates 1.8 cm above the quin) Chest x-ray, 07/17/2024: Endotracheal tube terminates 4.8 cm from the quin. Enteric tube is overlying the plane of the stomach CT head, 07/19/2024: Atrophy. No acute intracranial pathology vital signs Vital Sign Date Time Temp Pulse Resp B/P (MAP) Pulse Ox O2 Delivery O2 Flow Rate FiO2 07/24/24 21:46 107 121/61 96 Facial BiPAP Mask 30 07/24/24 21:18 23 07/24/24 16:22 3 07/24/24 16:00 98.5 98.5 Total Intake and Output 07/23/24 07/23/24 07/24/24 15:00 23:00 07:00 Intake Total 162.25 ml 264.626 ml 87.502 ml Output Total 4000 ml Balance 162.25 ml -3735.374 ml 87.502 ml medications Current Medications Medications Dose Ordered Sig/Rey Route Start Time Stop Time Status Last Admin Dose Admin Vancomycin HCl 0 ml @ 0 mls/hr UD IV 07/08/24 17:00 Sodium Chloride 10 ml Q8HR IV 07/09/24 06:00 07/24/24 21:23 10 ML Vasopressin 20 units/Sodium Chloride 100 ml @ 9 mls/hr Q11H7M IV 07/09/24 13:15 07/14/24 08:47 9 MLS/HR Norepinephrine Bitartrate 32 mg/ Sodium Chloride 250 ml @ 0.938 mls/ hr Q24H IV 07/09/24 15:30 07/23/24 11:43 0.938 MLS/HR Phenylephrine HCl 80 mg/Sodium Chloride 250 ml @ 7.5 mls/hr Q24H IV 07/09/24 15:45 07/10/24 08:08 33.75 MLS/HR Epinephrine HCl 250 ml @ 7.5 mls/hr Q24H IV 07/09/24 17:00 07/10/24 05:30 7.5 MLS/HR Pantoprazole Sodium 40 mg DAILY IV 07/10/24 10:00 07/24/24 10:00 40 MG Epoetin Justus-epbx 10,000 unit MWF SC 07/14/24 21:00 07/23/24 14:26 10,000 UNIT Meropenem 50 ml @ 17 mls/hr Q24H IV 07/13/24 22:00 07/24/24 21:23 17 MLS/HR Albumin Human 50 ml @ 100 mls/hr PRN PRN IV 07/13/24 08:30 Cancel Albumin Human 50 ml @ 50 mls/hr PRN PRN IV 07/13/24 08:20 07/23/24 14:29 50 MLS/HR Enteral Nutritional Formula 1,000 ml 30ML/HR GT 07/13/24 12:00 07/24/24 15:41 1,000 ML Dexmedetomidine HCl 400 mcg/ Dextrose 100 ml @ 4.73 mls/hr Q21H9M IV 07/15/24 20:00 07/19/24 08:49 7.095 MLS/HR Lactulose 30 ml DAILY PO 07/17/24 10:00 07/23/24 09:48 30 ML Metoclopramide HCl 5 mg Q8HR IV 07/16/24 22:00 07/24/24 21:22 5 MG Albuterol 2.5 mg Q6HR HHN 07/18/24 18:00 07/24/24 18:17 2.5 MG Ipratropium [place] 0.5 mg Q6HR NEB 07/18/24 18:00 07/24/24 18:17 0.5 MG Hydralazine HCl 10 mg Q4HR PRN IV 07/19/24 15:30 Hold 07/22/24 09:41 10 MG Diagnostic Test (Pha) 1 strip IQ4HR 07/21/24 14:00 07/24/24 21:22 1 STRIP Insulin Human Regular IQ4HR SC 07/21/24 14:00 07/23/24 01:08 3 UNITS Dextrose 50 ml UD PRN IV 07/21/24 13:00 Labetalol HCl 10 mg Q2HPRN PRN IV 07/22/24 11:15 Bacitracin 1 applic DAILY TOP 07/24/24 10:00 07/24/24 15:17 1 APPLIC Amphotericin B Liposome 250 mg/ Dextrose 187.5 ml @ 93.75 mls/ hr DAILY@2100 IV 07/24/24 21:00 07/24/24 21:24 93.75 MLS/HR Acetaminophen 650 mg DAILY@2030 PO 07/24/24 20:30 07/24/24 21:23 650 MG Diphenhydramine HCl 25 mg DAILY@2030 IV 07/24/24 20:30 07/24/24 21:22 25 MG objective General: the patient is well developed and nourished. MENTAL STATUS: Subjective SPEECH, LANGUAGE, HIGHER CORTICAL FUNCTION: Subjective CRANIAL NERVES: Pupils are equal, round and reactive. EOMs full and conjugate.Facial sensation intact in all three divisions bilaterally. Mandibular strength intact. Facial muscles symmetrical and strength intact. SENSATION: Sensation to touch and pinprick is ok MOTOR: Normal tone in the upper and lower extremity. Normal muscle bulk. No fasciculations. No abnormal movements or posturing. Moves extremities a little bit REFLEXES: Deep tendon reflexes are symmetrical. No pathological reflexes. CEREBELLAR/COORDINATION: Deferred GAIT/STATION: deferred laboratory and microbiology Laboratory Tests 07/24/24 03:05 Test 07/24/24 03:05 Range/Units Serum Glucose 88 74-106 mg/dL Problem List Altered mental status, improving Metabolic encephalopathy Hypoxic encephalopathy Toxic encephalopathy Hepatic encephalopathy Respiratory failure Sepsis/septic shock Pneumonia Cellulitis Metabolic acidosis Coagulopathy Elevated liver function test Thrombocytopenia Macrocytic anemia Elevated liver function tests ICU myopathy Assessment/Plan Monitoring Supportive treatment ICU care MR brain scan later Stabilize vitals Respiratory support/BiPAP Oxygen Antibiotics GI prophylaxis/pantoprazole Infectious disease on case Pulmonary on case Cardiology on case Nephrology on case More recommendation per clinical course This medical document was created using an electronic medical record system with [employer] dictation system. Although this document has been carefully reviewed, there may still be some phonetic and typographical errors. These areas are purely typographical due to imperfections of the software programs, and do not reflect any compromise in the patient's medical care Prognosis Critical, poor Dietary Evaluation Review Comments: 1) If GI is accessible consider Nepro 1.8 @ 20 ml/hr with current rate of propofol on board 2) If pt remains NPO >7days of NPO status, provide TPN to meet at least 75% of estimated needs 3) Advance pt diet when medically feasible to a Renal Standard diet modified per [employer] recommendations Expected Outcomes/Goals: 1) Pt to receive nutrition support within 7 days of NPO status 2) Pt diet to advance 3) F/U in 2-3 days Plan discussed with: Other SUMIT SANTAMARIA MD Jul 24, 2024 23:14
--- NOTE | 2024-07-24 23:23 | DVHPN2 ---
Progress Note - Dictate Date Seen: Jul 24, 2024 Has the PT tested + for MRSA If YES, has PT been informed?: No Medical Necessity Reason Pt with a Central, PICC or Fol: Yes The following are medically ne: Central Line Subjective Patient seen and examined at bedside. Currently on BiPAP Overnight events reviewed vital signs Vital Sign Date Time Temp Pulse Resp B/P (MAP) Pulse Ox O2 Delivery O2 Flow Rate FiO2 07/24/24 23:15 108 131/62 100 Facial BiPAP Mask 30 07/24/24 21:18 23 07/24/24 16:22 3 07/24/24 16:00 98.5 98.5 Total Intake and Output 07/23/24 07/23/24 07/24/24 15:00 23:00 07:00 Intake Total 162.25 ml 264.626 ml 87.502 ml Output Total 4000 ml Balance 162.25 ml -3735.374 ml 87.502 ml medications Current Medications Medications Dose Ordered Sig/Rey Route Start Time Stop Time Status Last Admin Dose Admin Vancomycin HCl 0 ml @ 0 mls/hr UD IV 07/08/24 17:00 Sodium Chloride 10 ml Q8HR IV 07/09/24 06:00 07/24/24 21:23 10 ML Vasopressin 20 units/Sodium Chloride 100 ml @ 9 mls/hr Q11H7M IV 07/09/24 13:15 07/14/24 08:47 9 MLS/HR Norepinephrine Bitartrate 32 mg/ Sodium Chloride 250 ml @ 0.938 mls/ hr Q24H IV 07/09/24 15:30 07/23/24 11:43 0.938 MLS/HR Phenylephrine HCl 80 mg/Sodium Chloride 250 ml @ 7.5 mls/hr Q24H IV 07/09/24 15:45 07/10/24 08:08 33.75 MLS/HR Epinephrine HCl 250 ml @ 7.5 mls/hr Q24H IV 07/09/24 17:00 07/10/24 05:30 7.5 MLS/HR Pantoprazole Sodium 40 mg DAILY IV 07/10/24 10:00 07/24/24 10:00 40 MG Epoetin Justus-epbx 10,000 unit MWF SC 07/14/24 21:00 07/23/24 14:26 10,000 UNIT Meropenem 50 ml @ 17 mls/hr Q24H IV 07/13/24 22:00 07/24/24 21:23 17 MLS/HR Albumin Human 50 ml @ 100 mls/hr PRN PRN IV 07/13/24 08:30 Cancel Albumin Human 50 ml @ 50 mls/hr PRN PRN IV 07/13/24 08:20 07/23/24 14:29 50 MLS/HR Enteral Nutritional Formula 1,000 ml 30ML/HR GT 07/13/24 12:00 07/24/24 15:41 1,000 ML Dexmedetomidine HCl 400 mcg/ Dextrose 100 ml @ 4.73 mls/hr Q21H9M IV 07/15/24 20:00 07/19/24 08:49 7.095 MLS/HR Lactulose 30 ml DAILY PO 07/17/24 10:00 07/23/24 09:48 30 ML Metoclopramide HCl 5 mg Q8HR IV 07/16/24 22:00 07/24/24 21:22 5 MG Albuterol 2.5 mg Q6HR HHN 07/18/24 18:00 07/24/24 23:14 2.5 MG Ipratropium [place] 0.5 mg Q6HR NEB 07/18/24 18:00 07/24/24 23:14 0.5 MG Hydralazine HCl 10 mg Q4HR PRN IV 07/19/24 15:30 Hold 07/22/24 09:41 10 MG Diagnostic Test (Pha) 1 strip IQ4HR 07/21/24 14:00 07/24/24 21:22 1 STRIP Insulin Human Regular IQ4HR SC 07/21/24 14:00 07/23/24 01:08 3 UNITS Dextrose 50 ml UD PRN IV 07/21/24 13:00 Labetalol HCl 10 mg Q2HPRN PRN IV 07/22/24 11:15 Bacitracin 1 applic DAILY TOP 07/24/24 10:00 07/24/24 15:17 1 APPLIC Amphotericin B Liposome 250 mg/ Dextrose 187.5 ml @ 93.75 mls/ hr DAILY@2100 IV 07/24/24 21:00 07/24/24 21:24 93.75 MLS/HR Acetaminophen 650 mg DAILY@2030 PO 07/24/24 20:30 07/24/24 21:23 650 MG Diphenhydramine HCl 25 mg DAILY@2030 IV 07/24/24 20:30 07/24/24 21:22 25 MG objective Gen.: Patient lying in bed in no apparent distress. On BiPAP Head: Normocephalic, atraumatic. Eyes: EOMI/PERRLA. Ears: Normal hearing. Normal anatomy. Neck/trachea: Trachea midline, supple. Nose: Normal external anatomy. Mouth: Moist mucous membranes. Chest: Decreased air entry bilaterally. No wheezing or rhonchi. Cardiovascular: Positive S1, positive S2. Regular rate and rhythm. Abdomen: Positive bowel sounds in all 4 quadrants. Soft, non-tender, non- distended. : Deferred. Rectal: Deferred. Skin: Warm, dry. Intact. Extremities: 2+ radial pulses bilaterally. No lower extremity edema. Neuro: Awake, alert. Following commands. No gross motor or sensory deficits. Cranial nerves II through XII intact. Gait not assessed. laboratory and microbiology Laboratory Tests 07/24/24 03:05 Test 07/24/24 03:05 Range/Units Serum Glucose 88 74-106 mg/dL Assessment/Plan Impression: Acute hypoxic respiratory failure Pulmonary edema Necrotizing fasciitis Septic shock Morbid obesity Events: Remains on BiPAP w/ IPAP 12, EPAP 8, FiO2 30% Tolerated NC for a few hours Trial of low flow O2 in AM. Patient is awake, alert, follows commands Continue bronchodilators/Mucomyst Continue antibiotics Continue Micafungin Incentive spirometry Pressors for hemodynamic support On Levophed 10 mcg/min Titrate to keep MAP above 65 mmHg/SBP above 90 mmHg. On Levophed during hemodialysis - monitor hemodynamics Monitor hemoglobin Monitor platelet count NGT. Tube feeds for nutritional support NTS PRN to clear secretions Head of bed elevation Aspiration precautions. Monitor WBC Wound care Physical therapy HD per Nephrology Monitor renal function Monitor electrolytes. Supplement as necessary. Nephrology recommendations appreciated U/S Doppler of left upper extremity negative for DVT. 07/17/24 - S/p therapeutic bronchoscopy w/ RLL BAL - cleared mucous plugging from L6-L10 and R6-R10 See separate procedure note for details. Labs and imaging reviewed. Rest of plan as noted below. Plan: s/p extubation on 07/18/24 Continue BiPAP w/ IPAP 12, EPAP 8, FiO2 30% Taper FiO2 as tolerated Off sedation Continue antibiotics. F/u cultures. Pressors for hemodynamic support Titrate to keep MAP above 65 mmHg/SBP above 90 mmHg. On Levophed during hemodialysis - monitor hemodynamics Monitor renal function Monitor electrolytes. Supplement as necessary. Monitor ins and outs. GI prophylaxis. DVT prophylaxis. Prognosis: Poor given patient's multiple co-morbidities. Condition: Critical Rest of plan per hospitalist and other consultants. A total of 35 minutes of critical care time was spent reviewing the patient record, examining the patient, making a diagnostic and therapeutic plan, discussing this plan with the medical personnel, following up on diagnostic studies and following the patient for clinical stability excluding any and all procedures. At least 50% of this time was spent in direct, edvt-or-miwl contact. Thank you Dr. Johnson, for allowing me to participate in this patient's care. Further recommendations will depend on the patient's clinical course. Please do not hesitate to contact me if you have any questions or concerns. This medical document was created using an electronic medical record system with [employer] dictation system. Although these documentations are being carefully reviewed, there may still be some phonetic and typographical changes. The errors are purely typographical, due to imperfection on the software program, and do not reflect any compromise in the patient's medical care. Dietary Evaluation Review Comments: 1) If GI is accessible consider Nepro 1.8 @ 20 ml/hr with current rate of propofol on board 2) If pt remains NPO >7days of NPO status, provide TPN to meet at least 75% of estimated needs 3) Advance pt diet when medically feasible to a Renal Standard diet modified per [employer] recommendations Expected Outcomes/Goals: 1) Pt to receive nutrition support within 7 days of NPO status 2) Pt diet to advance 3) F/U in 2-3 days Plan discussed with: Other (JACEK Smith) Critical Care Time(min): 35 EB DEJESUS MD Jul 24, 2024 23:23
[2024-07-25] VITALS (104 sets, daily range): BP systolic 76–161; BP diastolic 22–70; PULSE 94–108; RESP 14–44; TEMP 97.1–99.5; O2SAT 0–100
[2024-07-25 07:37] LABS: Basophils # (auto) 0.1 10 ^3/uL (0-0.2); Eosinophils # (auto) 0.3 10 ^3/uL (0-0.8); Lymphocytes # (auto) 1.2 10 ^3/uL (0.4-5.4)
[2024-07-25 07:38] LABS: Basophils % (auto) 0.5 % (0.0-2.0); Eosinophils % (auto) 2.2 % (0.0-7.0); Hematocrit 37.2 % (41.0-53.0); Lymphocytes % (auto) 7.6 % (10.0-50.0); Mean Corpuscular Hemoglobin 34.2 pg (28.0-32.0); Mean Corpuscular Hgb Conc. 32.3 g/dL (32.0-36.0); Mean Corpuscular Volume 105.8 fL (80.0-100.0); Monocytes # (auto) 1.3 10 ^3/uL (0-1.3); Monocytes % (auto) 8.3 % (0.0-12.0); Neutrophils # (auto) 12.7 10 ^3/uL (1.6-8.6); Neutrophils % (auto) 81.4 % (37.0-80.0); Nucleated Red Blood Cells % 0.1 %; Platelet Count (auto) 112 10^3/uL (140-450); Red Blood Cells 3.52 10^6/uL (4.5-5.90); White Blood Cell 15.6 10^3/uL (4.4-10.8)
[2024-07-25 07:40] LABS: Red Cell Distribution Width 20.1 % (11.8-14.3)
[2024-07-25 07:44] LABS: Albumin 3.3 g/dL (3.2-4.8); Anion Gap 20 (5-15); Carbon Dioxide 21 mmol/L (20-31); Chloride 99 mmol/L (98-107); Glucose 91 mg/dL (74-106); Sodium 140 mmol/L (136-145); Total Protein 6.2 g/dL (5.7-8.2)
[2024-07-25 08:05] LABS: Alanine Aminotransferase 82 U/L (7-40); Alkaline Phosphatase 196 U/L (46-116); Aspartate Aminotransferase 111 U/L (13-40); Bilirubin, Total 12.2 mg/dL (0.2-1.0); Calcium 7.9 mg/dL (8.7-10.4); Potassium 5.2 mmol/L (3.5-5.1)
[2024-07-25 08:07] LABS: Blood Urea Nitrogen 102 mg/dL (9-23)
[2024-07-25 08:17] LABS: Anisocytosis Slight; Macrocytosis Slight
[2024-07-25 08:18] LABS: Large Platelets FEW; Platelet Estimate Decrea
--- NOTE | 2024-07-25 10:34 | DVHPN2 ---
Progress Note Date Seen: Jul 25, 2024 Has the PT tested + for MRSA If YES, has PT been informed?: No Medical Necessity Reason Pt with a Central, PICC or Fol: Yes The following are medically ne: Central Line Subjective Review of Systems: RESPIRATORY:Abnormal Other Systems: Patient seen and examined by myself today in follow-up Patient remained on BiPAP Objective vital signs Vital Sign Date Time Temp Pulse Resp B/P (MAP) Pulse Ox O2 Delivery O2 Flow Rate FiO2 07/25/24 09:46 19 100 Nasal Cannula* 3 32 07/25/24 09:46 103 07/25/24 09:45 93/50 (64) 07/25/24 08:00 99.5 99.5 Total Intake and Output 07/24/24 07/24/24 07/25/24 15:00 23:00 07:00 Intake Total 122.502 ml 279.755 ml 88.504 ml Output Total 0 ml Balance 122.502 ml 279.755 ml 88.504 ml medications Current Medications Medications Dose Ordered Sig/Rey Route Start Time Stop Time Status Last Admin Dose Admin Vancomycin HCl 0 ml @ 0 mls/hr UD IV 07/08/24 17:00 Sodium Chloride 10 ml Q8HR IV 07/09/24 06:00 07/25/24 05:20 10 ML Vasopressin 20 units/Sodium Chloride 100 ml @ 9 mls/hr Q11H7M IV 07/09/24 13:15 07/14/24 08:47 9 MLS/HR Norepinephrine Bitartrate 32 mg/ Sodium Chloride 250 ml @ 0.938 mls/ hr Q24H IV 07/09/24 15:30 07/23/24 11:43 0.938 MLS/HR Phenylephrine HCl 80 mg/Sodium Chloride 250 ml @ 7.5 mls/hr Q24H IV 07/09/24 15:45 07/10/24 08:08 33.75 MLS/HR Epinephrine HCl 250 ml @ 7.5 mls/hr Q24H IV 07/09/24 17:00 07/10/24 05:30 7.5 MLS/HR Pantoprazole Sodium 40 mg DAILY IV 07/10/24 10:00 07/25/24 10:21 40 MG Epoetin Justus-epbx 10,000 unit MWF [place] 07/14/24 21:00 07/23/24 14:26 10,000 UNIT Meropenem 50 ml @ 17 mls/hr Q24H IV 07/13/24 22:00 07/24/24 21:23 17 MLS/HR Albumin Human 50 ml @ 100 mls/hr PRN PRN IV 07/13/24 08:30 Cancel Albumin Human 50 ml @ 50 mls/hr PRN PRN IV 07/13/24 08:20 07/23/24 14:29 50 MLS/HR Enteral Nutritional Formula 1,000 ml 30ML/HR GT 07/13/24 12:00 07/24/24 15:41 1,000 ML Dexmedetomidine HCl 400 mcg/ Dextrose 100 ml @ 4.73 mls/hr Q21H9M IV 07/15/24 20:00 07/19/24 08:49 7.095 MLS/HR Lactulose 30 ml DAILY PO 07/17/24 10:00 07/23/24 09:48 30 ML Metoclopramide HCl 5 mg Q8HR IV 07/16/24 22:00 07/25/24 05:20 5 MG Albuterol 2.5 mg Q6HR HHN 07/18/24 18:00 07/25/24 06:26 2.5 MG Ipratropium [place] 0.5 mg Q6HR NEB 07/18/24 18:00 07/25/24 06:26 0.5 MG Hydralazine HCl 10 mg Q4HR PRN IV 07/19/24 15:30 Hold 07/22/24 09:41 10 MG Diagnostic Test (Pha) 1 strip IQ4HR 07/21/24 14:00 07/25/24 08:46 1 STRIP Insulin Human Regular IQ4HR SC 07/21/24 14:00 07/23/24 01:08 3 UNITS Dextrose 50 ml UD PRN IV 07/21/24 13:00 Labetalol HCl 10 mg Q2HPRN PRN IV 07/22/24 11:15 Bacitracin 1 applic DAILY TOP 07/24/24 10:00 07/25/24 10:21 1 APPLIC Amphotericin B Liposome 250 mg/ Dextrose 187.5 ml @ 93.75 mls/ hr DAILY@2100 IV 07/24/24 21:00 07/24/24 21:24 93.75 MLS/HR Acetaminophen 650 mg DAILY@2030 PO 07/24/24 20:30 07/24/24 21:23 650 MG Diphenhydramine HCl 25 mg DAILY@2029 IV 07/24/24 20:30 07/24/24 21:22 25 MG Examination: LUNGS:Normal, CVS:Normal, MSK:Abnormal laboratory and microbiology Laboratory Tests 07/25/24 03:40 Test 07/25/24 03:40 Range/Units Serum Glucose 91 74-106 mg/dL Microbiology Date/Time Source Procedure Growth Status 07/17/24 15:35 Bronchial Washings Gram Stain - Final Resulted 07/17/24 15:35 Bronchial Washings Respiratory Culture - Preliminary Resulted 07/09/24 19:55 Trachea Gram Stain - Final Complete 07/09/24 19:55 Trachea Respiratory Culture - Final Complete 07/08/24 18:00 Blood Blood Culture - Final Escherichia coli - ESBL Complete Problem List/Assessment/Plan Problem List/Assessment/Plan ESRD on HD Acute respiratory failure, extubated 07/18 hyperkalemia, resolved Congestive heart failure, ejection fraction 25% uremic acidosis / lactic acidosis septic shock with gram-negative anabella bacteremia lower extremity wound anemia hypoglycemia Left pleural effusion Recommendations Hemodialysis tomorrow Epogen 92237 IV post hemodialysis IV antibiotic Renal diet Thoracentesis will continue to follow Plan discussed with: Patient My Orders My Orders Orders - VAMSI LOPEZ MD Procedure Category Date Status Time Hemodialysis Orders ORDERS 07/25/24 Transmitted 07:00 Dialysis Nursing [facility] 07/25/24 In Process Message 07:00 Document Fluid Input [facility] 07/25/24 In Process And Outpu 07:00 Sodium Zirconium PHA 07/25/24 Verified Cyclosilicate 10:45 Dialysis Nursing [facility] 07/26/24 Verified Message 07:00 Heparin Sodium PHA 07/26/24 Verified (Porcine) 07:00 Heparin Sodium PHA 07/26/24 Verified (Porcine) 07:00 Sodium Chloride 0.9% PHA 07/26/24 Verified 07:00 Document Fluid Input [facility] 07/26/24 Verified And Outpu 07:00 Retacrit 10,000unit PHA 07/26/24 Verified Sc Xone 21:00 Dietary Evaluation Review Comments: 1) If GI is accessible consider Nepro 1.8 @ 20 ml/hr with current rate of propofol on board 2) If pt remains NPO >7days of NPO status, provide TPN to meet at least 75% of estimated needs 3) Advance pt diet when medically feasible to a Renal Standard diet modified per PRINTING PRESS MACHINIST recommendations Expected Outcomes/Goals: 1) Pt to receive nutrition support within 7 days of NPO status 2) Pt diet to advance 3) F/U in 2-3 days VAMSI LOPEZ MD Jul 25, 2024 10:34
--- NOTE | 2024-07-25 13:57 | DVHPN2 ---
Reviewed: Care Plan, H&P, Labs, Medications Changes from previous H/P or p: No Changes General: Per HPI Eyes: No Pain, No Vision change, No Conjunctivae inflammation, No Eyelid inflammation, No Other, No Redness ENT: No Ear pain, No Ear discharge, No Nose pain, No Nose discharge, No Nose congestion, No Mouth pain, No Mouth swelling, No Throat pain, No Throat swelling, No Other Cardiovascular: Chest Pain Respiratory: Cough Gastrointestinal: No Nausea, No Vomiting, No Abdominal Pain, No Diarrhea, No Constipation, No Melena, No Hematochezia, No Other Genitourinary: No Dysuria, No Frequency, No Incontinence, No Hematuria, No Retention, No Other Musculoskeletal: other, leg pain Skin: Other Objective Vitals Vital Signs Date Time Temp Pulse Resp B/P (MAP) Pulse Ox O2 Delivery O2 Flow Rate FiO2 07/25/24 13:15 98 23 91/44 (60) 99 07/25/24 12:30 Nasal Cannula* 3 32 07/25/24 12:00 98.4 98.4 Intake/Output Intake and Output 07/25/24 07:00 Intake Total 490.761 ml Output Total 0 ml Balance 490.761 ml IV Total 439.761 ml Tube Feeding 51 ml Output Urine Total 0 ml General Appearance: Alert, Cooperative, Other HEENT: PERRLA Lungs: Other (Rhonchi and crackles) Cardiovascular: Regular rate, Normal S1, Normal S2 Abdomen: Normal bowel sounds, Soft, No tenderness Musculoskeletal: Other (No motor movement) Neuro: Other (Unable to assess) Skin: Wounds (See nurse notes and pictures) Psych/Mental Status: Other (Unable to assess) Medications Current Medications Medications Dose Ordered Sig/Rey Route Start Time Stop Time Status Last Admin Dose Admin Vancomycin HCl 0 ml @ 0 mls/hr UD IV 07/08/24 17:00 Sodium Chloride 10 ml Q8HR IV 07/09/24 06:00 07/25/24 05:20 10 ML Vasopressin 20 units/Sodium Chloride 100 ml @ 9 mls/hr Q11H7M IV 07/09/24 13:15 07/14/24 08:47 9 MLS/HR Norepinephrine Bitartrate 32 mg/ Sodium Chloride 250 ml @ 0.938 mls/ hr Q24H IV 07/09/24 15:30 07/23/24 11:43 0.938 MLS/HR Phenylephrine HCl 80 mg/Sodium Chloride 250 ml @ 7.5 mls/hr Q24H IV 07/09/24 15:45 07/10/24 08:08 33.75 MLS/HR Epinephrine HCl 250 ml @ 7.5 mls/hr Q24H IV 07/09/24 17:00 07/10/24 05:30 7.5 MLS/HR Pantoprazole Sodium 40 mg DAILY IV 07/10/24 10:00 07/25/24 10:21 40 MG Epoetin Justus-epbx 10,000 unit MWF SC 07/14/24 21:00 07/23/24 14:26 10,000 UNIT Meropenem 50 ml @ 17 mls/hr Q24H IV 07/13/24 22:00 07/24/24 21:23 17 MLS/HR Albumin Human 50 ml @ 100 mls/hr PRN PRN IV 07/13/24 08:30 Cancel Albumin Human 50 ml @ 50 mls/hr PRN PRN IV 07/13/24 08:20 07/23/24 14:29 50 MLS/HR Enteral Nutritional Formula 1,000 ml 30ML/HR GT 07/13/24 12:00 07/24/24 15:41 1,000 ML Dexmedetomidine HCl 400 mcg/ Dextrose 100 ml @ 4.73 mls/hr Q21H9M IV 07/15/24 20:00 07/19/24 08:49 7.095 MLS/HR Lactulose 30 ml DAILY PO 07/17/24 10:00 07/23/24 09:48 30 ML Metoclopramide HCl 5 mg Q8HR IV 07/16/24 22:00 07/25/24 05:20 5 MG Albuterol 2.5 mg Q6HR HHN 07/18/24 18:00 07/25/24 11:34 2.5 MG Ipratropium [place] 0.5 mg Q6HR NEB 07/18/24 18:00 07/25/24 11:34 0.5 MG Hydralazine HCl 10 mg Q4HR PRN IV 07/19/24 15:30 Hold 07/22/24 09:41 10 MG Diagnostic Test (Pha) 1 strip IQ4HR 07/21/24 14:00 07/25/24 12:15 1 STRIP Insulin Human Regular IQ4HR SC 07/21/24 14:00 07/23/24 01:08 3 UNITS Dextrose 50 ml UD PRN IV 07/21/24 13:00 Labetalol HCl 10 mg Q2HPRN PRN IV 07/22/24 11:15 Bacitracin 1 applic DAILY TOP 07/24/24 10:00 07/25/24 10:21 1 APPLIC Amphotericin B Liposome 250 mg/ Dextrose 187.5 ml @ 93.75 mls/ hr DAILY@2100 IV 07/24/24 21:00 07/24/24 21:24 93.75 MLS/HR Acetaminophen 650 mg DAILY@2030 PO 07/24/24 20:30 07/24/24 21:23 650 MG Diphenhydramine HCl 25 mg DAILY@2029 IV 07/24/24 20:30 07/24/24 21:22 25 MG Laboratory Results Laboratory Tests 07/25/24 03:40 Chemistry Test 07/25/24 03:40 Albumin 3.3 g/dL (3.2-4.8) Calcium Level 7.9 mg/dL (8.7-10.4) L Total Protein 6.2 g/dL (5.7-8.2) LFT Test 07/25/24 03:40 Alanine Aminotransferase (ALT) 82 U/L (7-40) H Alkaline Phosphatase 196 U/L (46-116) H Aspartate Amino Transferase (AST) 111 U/L (13-40) H Total Bilirubin 12.2 mg/dL (0.2-1.0) H Microbiology Microbiology Date/Time Source Procedure Growth Status 07/17/24 15:35 Bronchial Washings Gram Stain - Final Resulted 07/17/24 15:35 Bronchial Washings Respiratory Culture - Preliminary Resulted 07/09/24 19:55 Trachea Gram Stain - Final Complete 07/09/24 19:55 Trachea Respiratory Culture - Final Complete 07/08/24 18:00 Blood Blood Culture - Final Escherichia coli - ESBL Complete Labs and/or images reviewed: Labs reviewed by me, Image(s) reviewed by me Assessment/Plan Assessment/Plan Severe sepsis with septic shock due to bacteremia with E. coli ESBL Bacteremia with E. coli ESBL Right leg infection / cellulitis: Better Metabolic acidosis: Better with HD ESRD on HD h/o kidney CA s/p nephrectomy Hyperkalemia: resolved Thrombocytopenia Coagulopathy LLL atelectasis and effusion CAD Mixed hyperlipidemia DM2 Obesity Hypoglycemia PLAN: 07/14/2024: Continue IV antibiotics: Meropenem and Vanco Vasopressors prn Tube feeding D%W for hypoglycemia, DC once tolerating feeding IV hydrocortisone Taper sedation as tolerated HD per nephrology Vascular surgery (Dr. Mcbride) is following ID consult 07/15/24: HD per nephrology Taper sedation as tolerated Taper down Levophed as tolerated Tube feeding DC IV fluids IV antibiotics Monitor closely 07/17/24: Hypocalcemia: Replace Ca++ IV Hypoalbuminemia: Albumin IV ESRD: HD per nephrology Sepsis: IV antibiotics Resp failure: C-PAP Constipation: Lactulose Tube feeding Thrombocytopenia: stable Transaminitis: Better Discussed with family at the bedside 07/18/24: C-PAP LUE doppler rule out DVT Extubation per Dr. Bermudez Meropenem and Vancomycin 07/19/2024: Hemodialysis per nephrology Monitor closely We will have to discuss the advance directives with the family again today 1 day come The patient is still confused and edematous Ultrasound of the left arm showed no DVT 07/20/24: CT head: Neg BiPAP prn HD per nephrology Off Levophed Meropenem Micafungin Vancomycin Neurology consult 07/21/24: Switch BiPAP to high-flow oxygen if possible Hemodialysis per nephrology IV antibiotics Monitor closely 07/22/24: Uncontrolled HTN: Add Labetalol prn IV Meropenem and Vanco Sepsis: Better HD 07/23/24: HD per nephrology IV antibiotics BiPAP 07/24/2024: pt appears to be working hard with accessory muscles being on Bipap. possible intubation if needed continue with IV Abx HD per Nephro. Anuric. No schafer's 07/25/2024: pt is on nascal canula, bipap as needed contiue with current abx. leukocytosis improving. pt needs HD for further fluid removal, would be more beneficial if it's daily Plan discussed with: Other (nursing staff) My Orders Orders - DALLAS STREETER DO Procedure Category Date Status Time Cleanse Wound With Ns EV 07/24/24 In Process 11:00 Date of Service: Jul 25, 2024 Billing Provider: DALLAS STREETER DO Common Visit Codes: [id number] CARE 30-74 MIN DALLAS STREETER DO Jul 25, 2024 13:56
[2024-07-25] MEDS: SODIUM ZIRCONIUM CYCL 10 GM PAK PO ONE (14:23)
--- NOTE | 2024-07-25 19:08 | DVHPN2 ---
Progress Note - Dictate Date Seen: Jul 25, 2024 Has the PT tested + for MRSA If YES, has PT been informed?: No Medical Necessity Reason Pt with a Central, PICC or Fol: Yes The following are medically ne: Central Line Subjective Patient was seen and evaluated in follow up in the ICU. Patient was transitioned to 3 LPM WI. Patient is able to follow some commands with head nodding. Patient can only move upper and lower extremities slightly. WBC 15.6, K 5.2, BUN 102, ANSWERER 7.28, AST 111, ALT 82. vital signs Vital Sign Date Time Temp Pulse Resp B/P (MAP) Pulse Ox O2 Delivery O2 Flow Rate FiO2 07/25/24 12:30 20 100 Nasal Cannula* 3 32 07/25/24 11:43 105 07/25/24 09:45 93/50 (64) 07/25/24 08:00 99.5 99.5 Total Intake and Output 07/24/24 07/24/24 07/25/24 15:00 23:00 07:00 Intake Total 122.502 ml 279.755 ml 88.504 ml Output Total 0 ml Balance 122.502 ml 279.755 ml 88.504 ml medications Current Medications Medications Dose Ordered Sig/Rey Route Start Time Stop Time Status Last Admin Dose Admin Vancomycin HCl 0 ml @ 0 mls/hr UD IV 07/08/24 17:00 Sodium Chloride 10 ml Q8HR IV 07/09/24 06:00 07/25/24 05:20 10 ML Vasopressin 20 units/Sodium Chloride 100 ml @ 9 mls/hr Q11H7M IV 07/09/24 13:15 07/14/24 08:47 9 MLS/HR Norepinephrine Bitartrate 32 mg/ Sodium Chloride 250 ml @ 0.938 mls/ hr Q24H IV 07/09/24 15:30 07/23/24 11:43 0.938 MLS/HR Phenylephrine HCl 80 mg/Sodium Chloride 250 ml @ 7.5 mls/hr Q24H IV 07/09/24 15:45 07/10/24 08:08 33.75 MLS/HR Epinephrine HCl 250 ml @ 7.5 mls/hr Q24H IV 07/09/24 17:00 07/10/24 05:30 7.5 MLS/HR Pantoprazole Sodium 40 mg DAILY IV 07/10/24 10:00 07/25/24 10:21 40 MG Epoetin Justus-epbx 10,000 unit MWF SC 07/14/24 21:00 07/23/24 14:26 10,000 UNIT Meropenem 50 ml @ 17 mls/hr Q24H IV 07/13/24 22:00 07/24/24 21:23 17 MLS/HR Albumin Human 50 ml @ 100 mls/hr PRN PRN IV 07/13/24 08:30 Cancel Albumin Human 50 ml @ 50 mls/hr PRN PRN IV 07/13/24 08:20 07/23/24 14:29 50 MLS/HR Enteral Nutritional Formula 1,000 ml 30ML/HR GT 07/13/24 12:00 07/24/24 15:41 1,000 ML Dexmedetomidine HCl 400 mcg/ Dextrose 100 ml @ 4.73 mls/hr Q21H9M IV 07/15/24 20:00 07/19/24 08:49 7.095 MLS/HR Lactulose 30 ml DAILY PO 07/17/24 10:00 07/23/24 09:48 30 ML Metoclopramide HCl 5 mg Q8HR IV 07/16/24 22:00 07/25/24 05:20 5 MG Albuterol 2.5 mg Q6HR HHN 07/18/24 18:00 07/25/24 11:34 2.5 MG Ipratropium [place] 0.5 mg Q6HR NEB 07/18/24 18:00 07/25/24 11:34 0.5 MG Hydralazine HCl 10 mg Q4HR PRN IV 07/19/24 15:30 Hold 07/22/24 09:41 10 MG Diagnostic Test (Pha) 1 strip IQ4HR 07/21/24 14:00 07/25/24 12:15 1 STRIP Insulin Human Regular IQ4HR SC 07/21/24 14:00 07/23/24 01:08 3 UNITS Dextrose 50 ml UD PRN IV 07/21/24 13:00 Labetalol HCl 10 mg Q2HPRN PRN IV 07/22/24 11:15 Bacitracin 1 applic DAILY TOP 07/24/24 10:00 07/25/24 10:21 1 APPLIC Amphotericin B Liposome 250 mg/ Dextrose 187.5 ml @ 93.75 mls/ hr DAILY@2100 IV 07/24/24 21:00 07/24/24 21:24 93.75 MLS/HR Acetaminophen 650 mg DAILY@2029 PO 07/24/24 20:30 07/24/24 21:23 650 MG Diphenhydramine HCl 25 mg DAILY@2029 IV 07/24/24 20:30 07/24/24 21:22 25 MG objective GENERAL: Awake, altered. Morbidly obese. LUNGS: Decreased breath sounds. CARDIOVASCULAR: Heart sounds are good. ABDOMEN: Soft. EXT: BLE edema. SKIN: Ecchymosis to right upper thigh. laboratory and microbiology Laboratory Tests 07/25/24 03:40 Test 07/25/24 03:40 Range/Units Serum Glucose 91 74-106 mg/dL Problem List Hypotension secondary to septic shock. Coronary artery disease status post CABG in 2021. History of hypertension. Hyperlipidemia. Hyperkalemia. Acute anemia. Thrombocytopenia. Transaminitis. End-stage renal disease on hemodialysis. Renal cell carcinoma status post left nephrectomy. COPD. Asthma. Morbid obesity. Dilated cardiomyopathy. Assessment/Plan Continued all current supportive medical care. GI prophylactics. IV antibiotics as ordered. Vasopressors for hemodynamic support. Additional plan as per the hospital course. Critical care time of 45 minutes provided to include time spent evaluation of patient at bedside, when appropriate patient/family education for diagnosis, treatment plan, review of pertinent medical information and discussion of care with specialty providers and PCP. Dietary Evaluation Review Comments: 1) If GI is accessible consider Nepro 1.8 @ 20 ml/hr with current rate of propofol on board 2) If pt remains NPO >7days of NPO status, provide TPN to meet at least 75% of estimated needs 3) Advance pt diet when medically feasible to a Renal Standard diet modified per HEREDITARY CANCER PROGRAM COORDINATOR recommendations Expected Outcomes/Goals: 1) Pt to receive nutrition support within 7 days of NPO status 2) Pt diet to advance 3) F/U in 2-3 days Plan discussed with: FRIDA Colon MD Jul 25, 2024 13:06
--- NOTE | 2024-07-25 22:36 | DVHPN2 ---
Progress Note - Dictate Date Seen: Jul 25, 2024 Has the PT tested + for MRSA If YES, has PT been informed?: No Medical Necessity Reason Pt with a Central, PICC or Fol: Yes The following are medically ne: Central Line Subjective Mr. Daniel altered gentleman with a history of hypertension, dyslipidemia, coronary artery disease, kidney cancer status post nephrectomy, kidney failure on hemodialysis, the patient was brought to the [facility]. I have seen and examined the patient, I have discussed with his nurse, on BiPAP, he does not not talk, but is able to nod yes and shake no. he is oriented to person only He looks weak, with mild respiratory distress Blood culture, 07/08/2024: E coli HIV & II Ab, 07/10/24: Negative ABG, 07/09/2024: Metabolic acidosis, 07/10/2024: Metabolic acidosis, WBC/HB/PLT/MCV, 07/19/2024: 13.1/9.6/65/105.9 PT/INR/PTT, 07/11/2024: 35.6/3.63/38.4, 07/08/2024: 17.4/1.73/34.2 BUN/CR, 07/09/2024: 59/3.03 07/19/2024: 78/4.54 07/20/2024: 92/5.37 Lactic acid, 07/08/2019 5:3.1, 07/09/2024: 9.6, 07/10/24: 15.5, 07/11/2024: 449, 12.2 HGB A1c, : 3.8 CPK 07/08/2019 5:114, 07/19/2024: 1579 TBI/AST/ALT/AP, once the 925, 0.6/244/561/105, 07/09/2024: 1.1/306/563/101, 07/19/2024: 12/212/261/138 Hepatitis panel, : Negative TG/HDL/LDL/HDL, 07/10/2024: 364/60/5/<5 Vitamin B12, 07/19/2024: >4000 Folic acid 07/19/2024: 9.12 TSH, 07/10/2024: 0.33 EEG 07/19/2024: inadequate but likely mildly abnormal EEG Chest x-ray, 07/08/2024: Bronchovascular crowding. Underlying mild pulmonary vascular congestion can not be excluded Obscuration of the left hemidiaphragm which may be from overlying cardiac silhouette with underlying pleural effusion /atelectasis / pneumonia not excluded. Chest x-ray, 07/09/2024: 1. Left lower lobe opacity may reflect atelectasis or mild pneumonia. 2. Mild interstitial pulmonary edema. 3. Small left pleural effusion. 4. Lines and tubes as above (Endotracheal tube terminates 1.8 cm above the quin) Chest x-ray, 07/17/2024: Endotracheal tube terminates 4.8 cm from the quin. Enteric tube is overlying the plane of the stomach CT head, 07/19/2024: Atrophy. No acute intracranial pathology vital signs Vital Sign Date Time Temp Pulse Resp B/P (MAP) Pulse Ox O2 Delivery O2 Flow Rate FiO2 07/25/24 18:30 100 22 76/42 (53) 100 07/25/24 18:00 Nasal Cannula 3.0 07/25/24 18:00 32 07/25/24 16:00 98.8 98.8 Total Intake and Output 07/24/24 07/24/24 07/25/24 15:00 23:00 07:00 Intake Total 122.502 ml 279.755 ml 88.504 ml Output Total 0 ml Balance 122.502 ml 279.755 ml 88.504 ml medications Current Medications Medications Dose Ordered Sig/Rey Route Start Time Stop Time Status Last Admin Dose Admin Vancomycin HCl 0 ml @ 0 mls/hr UD IV 07/08/24 17:00 Sodium Chloride 10 ml Q8HR IV 07/09/24 06:00 07/25/24 21:00 10 ML Vasopressin 20 units/Sodium Chloride 100 ml @ 9 mls/hr Q11H7M IV 07/09/24 13:15 07/14/24 08:47 9 MLS/HR Norepinephrine Bitartrate 32 mg/ Sodium Chloride 250 ml @ 0.938 mls/ hr Q24H IV 07/09/24 15:30 07/25/24 21:04 9.375 MLS/HR Phenylephrine HCl 80 mg/Sodium Chloride 250 ml @ 7.5 mls/hr Q24H IV 07/09/24 15:45 07/10/24 08:08 33.75 MLS/HR Epinephrine HCl 250 ml @ 7.5 mls/hr Q24H IV 07/09/24 17:00 07/10/24 05:30 7.5 MLS/HR Pantoprazole Sodium 40 mg DAILY IV 07/10/24 10:00 07/25/24 10:21 40 MG Epoetin Justus-epbx 10,000 unit MWF SC 07/14/24 21:00 07/23/24 14:26 10,000 UNIT Meropenem 50 ml @ 17 mls/hr Q24H IV 07/13/24 22:00 07/25/24 21:00 17 MLS/HR Albumin Human 50 ml @ 100 mls/hr PRN PRN IV 07/13/24 08:30 Cancel Albumin Human 50 ml @ 50 mls/hr PRN PRN IV 07/13/24 08:20 07/23/24 14:29 50 MLS/HR Enteral Nutritional Formula 1,000 ml 30ML/HR GT 07/13/24 12:00 07/24/24 15:41 1,000 ML Dexmedetomidine HCl 400 mcg/ Dextrose 100 ml @ 4.73 mls/hr Q21H9M IV 07/15/24 20:00 07/19/24 08:49 7.095 MLS/HR Lactulose 30 ml DAILY PO 07/17/24 10:00 07/23/24 09:48 30 ML Metoclopramide HCl 5 mg Q8HR IV 07/16/24 22:00 07/25/24 21:00 5 MG Albuterol 2.5 mg Q6HR HHN 07/18/24 18:00 07/25/24 18:00 2.5 MG Ipratropium [place] 0.5 mg Q6HR NEB 07/18/24 18:00 07/25/24 18:00 0.5 MG Hydralazine HCl 10 mg Q4HR PRN IV 07/19/24 15:30 Hold 07/22/24 09:41 10 MG Diagnostic Test (Pha) 1 strip IQ4HR 07/21/24 14:00 07/25/24 20:53 1 STRIP Insulin Human Regular IQ4HR SC 07/21/24 14:00 07/23/24 01:08 3 UNITS Dextrose 50 ml UD PRN IV 07/21/24 13:00 Labetalol HCl 10 mg Q2HPRN PRN IV 07/22/24 11:15 Bacitracin 1 applic DAILY TOP 07/24/24 10:00 07/25/24 10:21 1 APPLIC Amphotericin B Liposome 250 mg/ Dextrose 187.5 ml @ 93.75 mls/ hr DAILY@2100 IV 07/24/24 21:00 07/25/24 21:03 93.75 MLS/HR Acetaminophen 650 mg DAILY@2030 PO 07/24/24 20:30 07/25/24 21:00 650 MG Diphenhydramine HCl 25 mg DAILY@2030 IV 07/24/24 20:30 07/25/24 21:00 25 MG objective General: the patient is well developed and nourished. MENTAL STATUS: Subjective SPEECH, LANGUAGE, HIGHER CORTICAL FUNCTION: Subjective CRANIAL NERVES: Pupils are equal, round and reactive. EOMs full and conjugate.Facial sensation intact in all three divisions bilaterally. Mandibular strength intact. Facial muscles symmetrical and strength intact. SENSATION: Sensation to touch and pinprick is ok MOTOR: Normal tone in the upper and lower extremity. Normal muscle bulk. No fasciculations. No abnormal movements or posturing. Moves extremities a little bit REFLEXES: Deep tendon reflexes are symmetrical. No pathological reflexes. CEREBELLAR/COORDINATION: Deferred GAIT/STATION: deferred laboratory and microbiology Laboratory Tests 07/25/24 03:40 Test 07/25/24 03:40 Range/Units Serum Glucose 91 74-106 mg/dL Problem List Altered mental status, improving Metabolic encephalopathy Hypoxic encephalopathy Toxic encephalopathy Hepatic encephalopathy Respiratory failure Sepsis/septic shock Pneumonia Cellulitis Metabolic acidosis Coagulopathy Elevated liver function test Thrombocytopenia Macrocytic anemia Elevated liver function tests ICU myopathy Assessment/Plan Monitoring Supportive treatment ICU care MR brain scan later Stabilize vitals Respiratory support/BiPAP Oxygen Antibiotics GI prophylaxis/pantoprazole Infectious disease on case Pulmonary on case Cardiology on case Nephrology on case More recommendation per clinical course This medical document was created using an electronic medical record system with [employer] dictation system. Although this document has been carefully reviewed, there may still be some phonetic and typographical errors. These areas are purely typographical due to imperfections of the software programs, and do not reflect any compromise in the patient's medical care Prognosis poor Dietary Evaluation Review Comments: 1) If GI is accessible consider Nepro 1.8 @ 20 ml/hr with current rate of propofol on board 2) If pt remains NPO >7days of NPO status, provide TPN to meet at least 75% of estimated needs 3) Advance pt diet when medically feasible to a Renal Standard diet modified per HOOKMAN recommendations Expected Outcomes/Goals: 1) Pt to receive nutrition support within 7 days of NPO status 2) Pt diet to advance 3) F/U in 2-3 days Plan discussed with: Other SUMIT SANTAMARIA MD Jul 25, 2024 22:36
--- NOTE | 2024-07-25 22:44 | DVHPN2 ---
Progress Note - Dictate Date Seen: Jul 25, 2024 Has the PT tested + for MRSA If YES, has PT been informed?: No Medical Necessity Reason Pt with a Central, PICC or Fol: Yes The following are medically ne: Central Line Subjective Patient seen and examined at bedside. On supplemental oxygen Overnight events reviewed vital signs Vital Sign Date Time Temp Pulse Resp B/P (MAP) Pulse Ox O2 Delivery O2 Flow Rate FiO2 07/25/24 18:30 100 22 76/42 (53) 100 07/25/24 18:00 Nasal Cannula 3.0 07/25/24 18:00 32 07/25/24 16:00 98.8 98.8 Total Intake and Output 07/24/24 07/24/24 07/25/24 15:00 23:00 07:00 Intake Total 122.502 ml 279.755 ml 88.504 ml Output Total 0 ml Balance 122.502 ml 279.755 ml 88.504 ml medications Current Medications Medications Dose Ordered Sig/Rey Route Start Time Stop Time Status Last Admin Dose Admin Vancomycin HCl 0 ml @ 0 mls/hr UD IV 07/08/24 17:00 Sodium Chloride 10 ml Q8HR IV 07/09/24 06:00 07/25/24 21:00 10 ML Vasopressin 20 units/Sodium Chloride 100 ml @ 9 mls/hr Q11H7M IV 07/09/24 13:15 07/14/24 08:47 9 MLS/HR Norepinephrine Bitartrate 32 mg/ Sodium Chloride 250 ml @ 0.938 mls/ hr Q24H IV 07/09/24 15:30 07/25/24 21:04 9.375 MLS/HR Phenylephrine HCl 80 mg/Sodium Chloride 250 ml @ 7.5 mls/hr Q24H IV 07/09/24 15:45 07/10/24 08:08 33.75 MLS/HR Epinephrine HCl 250 ml @ 7.5 mls/hr Q24H IV 07/09/24 17:00 07/10/24 05:30 7.5 MLS/HR Pantoprazole Sodium 40 mg DAILY IV 07/10/24 10:00 07/25/24 10:21 40 MG Epoetin Justus-epbx 10,000 unit MWF SC 07/14/24 21:00 07/23/24 14:26 10,000 UNIT Meropenem 50 ml @ 17 mls/hr Q24H IV 07/13/24 22:00 07/25/24 21:00 17 MLS/HR Albumin Human 50 ml @ 100 mls/hr PRN PRN IV 07/13/24 08:30 Cancel Albumin Human 50 ml @ 50 mls/hr PRN PRN IV 07/13/24 08:20 07/23/24 14:29 50 MLS/HR Enteral Nutritional Formula 1,000 ml 30ML/HR GT 07/13/24 12:00 07/24/24 15:41 1,000 ML Dexmedetomidine HCl 400 mcg/ Dextrose 100 ml @ 4.73 mls/hr Q21H9M IV 07/15/24 20:00 07/19/24 08:49 7.095 MLS/HR Lactulose 30 ml DAILY PO 07/17/24 10:00 07/23/24 09:48 30 ML Metoclopramide HCl 5 mg Q8HR IV 07/16/24 22:00 07/25/24 21:00 5 MG Albuterol 2.5 mg Q6HR HHN 07/18/24 18:00 07/25/24 18:00 2.5 MG Ipratropium [place] 0.5 mg Q6HR NEB 07/18/24 18:00 07/25/24 18:00 0.5 MG Hydralazine HCl 10 mg Q4HR PRN IV 07/19/24 15:30 Hold 07/22/24 09:41 10 MG Diagnostic Test (Pha) 1 strip IQ4HR 07/21/24 14:00 07/25/24 20:53 1 STRIP Insulin Human Regular IQ4HR SC 07/21/24 14:00 07/23/24 01:08 3 UNITS Dextrose 50 ml UD PRN IV 07/21/24 13:00 Labetalol HCl 10 mg Q2HPRN PRN IV 07/22/24 11:15 Bacitracin 1 applic DAILY TOP 07/24/24 10:00 07/25/24 10:21 1 APPLIC Amphotericin B Liposome 250 mg/ Dextrose 187.5 ml @ 93.75 mls/ hr DAILY@2100 IV 07/24/24 21:00 07/25/24 21:03 93.75 MLS/HR Acetaminophen 650 mg DAILY@2030 PO 07/24/24 20:30 07/25/24 21:00 650 MG Diphenhydramine HCl 25 mg DAILY@2030 IV 07/24/24 20:30 07/25/24 21:00 25 MG objective Gen.: Patient lying in bed in no apparent distress. On supplemental oxygen Head: Normocephalic, atraumatic. Eyes: EOMI/PERRLA. Ears: Normal hearing. Normal anatomy. Neck/trachea: Trachea midline, supple. Nose: Normal external anatomy. Mouth: Moist mucous membranes. Chest: Decreased air entry bilaterally. No wheezing or rhonchi. Cardiovascular: Positive S1, positive S2. Regular rate and rhythm. Abdomen: Positive bowel sounds in all 4 quadrants. Soft, non-tender, non- distended. : Deferred. Rectal: Deferred. Skin: Warm, dry. Intact. Extremities: 2+ radial pulses bilaterally. No lower extremity edema. Neuro: Awake, alert. Following commands. No gross motor or sensory deficits. Cranial nerves II through XII intact. Gait not assessed. laboratory and microbiology Laboratory Tests 07/25/24 03:40 Test 07/25/24 03:40 Range/Units Serum Glucose 91 74-106 mg/dL Assessment/Plan Impression: Acute hypoxic respiratory failure Pulmonary edema Necrotizing fasciitis Septic shock Morbid obesity Events: Currently on 4 LPM NC supplemental oxygen, tolerating Taper O2 as tolerated BiPAP PRN. Continue bronchodilators Continue antibiotics Incentive spirometry Pressors for hemodynamic support On Levophed 12 mcg/min Titrate to keep MAP above 65 mmHg/SBP above 90 mmHg. On Levophed during hemodialysis - monitor hemodynamics Monitor hemoglobin Monitor platelet count NGT. Tube feeds for nutritional support Oral care/suction NTS PRN to clear secretions Head of bed elevation Aspiration precautions. Monitor WBC Wound care Recommend PT eval. HD per Nephrology Monitor renal function Monitor electrolytes. Supplement as necessary. Nephrology recommendations appreciated U/S Doppler of left upper extremity negative for DVT. 07/17/24 - S/p therapeutic bronchoscopy w/ RLL BAL - cleared mucous plugging from L6-L10 and R6-R10 See separate procedure note for details. Labs and imaging reviewed. Rest of plan as noted below. Plan: s/p extubation on 07/18/24 Supplemental oxygen Titrate to keep O2 sats above 92%. BiPAP PRN Off sedation Continue antibiotics. F/u cultures. Pressors for hemodynamic support Titrate to keep MAP above 65 mmHg/SBP above 90 mmHg. On Levophed during hemodialysis - monitor hemodynamics Monitor renal function Monitor electrolytes. Supplement as necessary. Monitor ins and outs. GI prophylaxis. DVT prophylaxis. Prognosis: Poor given patient's multiple co-morbidities. Condition: Critical Rest of plan per hospitalist and other consultants. A total of 35 minutes of critical care time was spent reviewing the patient record, examining the patient, making a diagnostic and therapeutic plan, discussing this plan with the medical personnel, following up on diagnostic studies and following the patient for clinical stability excluding any and all procedures. At least 50% of this time was spent in direct, [id number] contact. Thank you Dr. Johnson, for allowing me to participate in this patient's care. Further recommendations will depend on the patient's clinical course. Please do not hesitate to contact me if you have any questions or concerns. This medical document was created using an electronic medical record system with [employer] dictation system. Although these documentations are being carefully reviewed, there may still be some phonetic and typographical changes. The errors are purely typographical, due to imperfection on the software program, and do not reflect any compromise in the patient's medical care. Dietary Evaluation Review Comments: 1) If GI is accessible consider Nepro 1.8 @ 20 ml/hr with current rate of propofol on board 2) If pt remains NPO >7days of NPO status, provide TPN to meet at least 75% of estimated needs 3) Advance pt diet when medically feasible to a Renal Standard diet modified per INDUSTRIAL ORDER CLERK recommendations Expected Outcomes/Goals: 1) Pt to receive nutrition support within 7 days of NPO status 2) Pt diet to advance 3) F/U in 2-3 days Plan discussed with: Other (JACEK Merrill/Ying) Critical Care Time(min): 35 EB DEJESUS MD Jul 25, 2024 22:43
[2024-07-26] VITALS (108 sets, daily range): BP systolic 66–205; BP diastolic 15–92; PULSE 83–127; RESP 18–40; TEMP 97.2–99.8; O2SAT 70–100
[2024-07-26] MEDS: VASOPRESSIN 20 UNIT/ML ONE (01:13)
[2024-07-26 03:46] LABS: Basophils # (auto) 0.1 10 ^3/uL (0-0.2); Basophils % (auto) 0.5 % (0.0-2.0); Eosinophils # (auto) 0.3 10 ^3/uL (0-0.8); Eosinophils % (auto) 1.7 % (0.0-7.0); Hematocrit 35.7 % (41.0-53.0); Hemoglobin 11.5 g/dL (13.5-17.5); Lymphocytes # (auto) 1.2 10 ^3/uL (0.4-5.4); Lymphocytes % (auto) 6.6 % (10.0-50.0); Mean Corpuscular Hemoglobin 33.3 pg (28.0-32.0); Mean Corpuscular Hgb Conc. 32.1 g/dL (32.0-36.0); Mean Corpuscular Volume 103.8 fL (80.0-100.0); Monocytes # (auto) 1.5 10 ^3/uL (0-1.3); Monocytes % (auto) 8.5 % (0.0-12.0); Neutrophils # (auto) 14.9 10 ^3/uL (1.6-8.6); Neutrophils % (auto) 82.7 % (37.0-80.0); Nucleated Red Blood Cells % 0.1 %; Platelet Count (auto) 100 10^3/uL (140-450); Red Blood Cells 3.44 10^6/uL (4.5-5.90); Red Cell Distribution Width 20.1 % (11.8-14.3); White Blood Cell 18.1 10^3/uL (4.4-10.8)
[2024-07-26] MEDS: PHENYLEPHRINE IV 250 ML IV ONE (05:15)
[2024-07-26] MEDS: PHENYLEPHRINE HCL 10 MG/ML VL ONE (05:15)
--- NOTE | 2024-07-26 10:28 | DVHPN2 ---
Progress Note - Dictate Date Seen: Jul 26, 2024 Has the PT tested + for MRSA If YES, has PT been informed?: No Medical Necessity Reason Pt with a Central, PICC or Fol: Yes The following are medically ne: Central Line Subjective Mr. Daniel altered gentleman with a history of hypertension, dyslipidemia, coronary artery disease, kidney cancer status post nephrectomy, kidney failure on hemodialysis, the patient was brought to the [facility]. I have seen and examined the patient, I have discussed with his nurse, on BiPAP, he was awake, he does not talk, he follows verbal commands, but he is not doing well, he was hypotension, and he is on three pressor drips Hypothermia Neosyn 140mcg/min, vasoprissin 0.3 units/min, Levo 30 mcg/min Blood culture, 07/08/2024: E coli HIV & II Ab, 07/10/24: Negative ABG, 07/09/2024: Metabolic acidosis, 07/10/2024: Metabolic acidosis, WBC/HB/PLT/MCV, 07/19/2024: 13.1/9.6/65/105.9 PT/INR/PTT, 07/11/2024: 35.6/3.63/38.4, 07/08/2024: 17.4/1.73/34.2 BUN/CR, 07/09/2024: 59/3.03 07/19/2024: 78/4.54 07/20/2024: 92/5.37 Lactic acid, 07/08/2019 5:3.1, 07/09/2024: 9.6, 07/10/24: 15.5, 07/11/2024: 449, 12.2 HGB A1c, : 3.8 CPK 07/08/2019 5:114, 07/19/2024: 1579 TBI/AST/ALT/AP, once the 925, 0.6/244/561/105, 07/09/2024: 1.1/306/563/101, 07/19/2024: 12/212/261/138 Hepatitis panel, : Negative TG/HDL/LDL/HDL, 07/10/2024: 364/60/5/<5 Vitamin B12, 07/19/2024: >4000 Folic acid 07/19/2024: 9.12 TSH, 07/10/2024: 0.33 EEG 07/19/2024: inadequate but likely mildly abnormal EEG Chest x-ray, 07/08/2024: Bronchovascular crowding. Underlying mild pulmonary vascular congestion can not be excluded Obscuration of the left hemidiaphragm which may be from overlying cardiac silhouette with underlying pleural effusion /atelectasis / pneumonia not excluded. Chest x-ray, 07/09/2024: 1. Left lower lobe opacity may reflect atelectasis or mild pneumonia. 2. Mild interstitial pulmonary edema. 3. Small left pleural effusion. 4. Lines and tubes as above (Endotracheal tube terminates 1.8 cm above the quin) Chest x-ray, 07/17/2024: Endotracheal tube terminates 4.8 cm from the quin. Enteric tube is overlying the plane of the stomach CT head, 07/19/2024: Atrophy. No acute intracranial pathology vital signs Vital Sign Date Time Temp Pulse Resp B/P (MAP) Pulse Ox O2 Delivery O2 Flow Rate FiO2 07/26/24 08:00 92 07/26/24 08:00 96/15 100 Facial BiPAP Mask 30 07/26/24 07:30 23 07/26/24 00:03 3 07/26/24 00:00 97.2 97.2 Total Intake and Output 07/25/24 07/25/24 07/26/24 15:00 23:00 07:00 Intake Total 34.665 ml 281.500 ml 292.942 ml Output Total 0 ml Balance 34.665 ml 281.500 ml 292.942 ml medications Current Medications Medications Dose Ordered Sig/Rey Route Start Time Stop Time Status Last Admin Dose Admin Vancomycin HCl 0 ml @ 0 mls/hr UD IV 07/08/24 17:00 Sodium Chloride 10 ml Q8HR IV 07/09/24 06:00 07/26/24 05:19 10 ML Vasopressin 20 units/Sodium Chloride 100 ml @ 9 mls/hr Q11H7M IV 07/09/24 13:15 07/26/24 01:24 9 MLS/HR Norepinephrine Bitartrate 32 mg/ Sodium Chloride 250 ml @ 0.938 mls/ hr Q24H IV 07/09/24 15:30 07/25/24 21:04 9.375 MLS/HR Phenylephrine HCl 80 mg/Sodium Chloride 250 ml @ 7.5 mls/hr Q24H IV 07/09/24 15:45 07/26/24 05:12 7.5 MLS/HR Epinephrine HCl 250 ml @ 7.5 mls/hr Q24H IV 07/09/24 17:00 07/10/24 05:30 7.5 MLS/HR Pantoprazole Sodium 40 mg DAILY IV 07/10/24 10:00 07/25/24 10:21 40 MG Epoetin Justus-epbx 10,000 unit MWF SC 07/14/24 21:00 07/23/24 14:26 10,000 UNIT Meropenem 50 ml @ 17 mls/hr Q24H IV 07/13/24 22:00 07/25/24 21:00 17 MLS/HR Albumin Human 50 ml @ 100 mls/hr PRN PRN IV 07/13/24 08:30 Cancel Albumin Human 50 ml @ 50 mls/hr PRN PRN IV 07/13/24 08:20 07/23/24 14:29 50 MLS/HR Enteral Nutritional Formula 1,000 ml 30ML/HR GT 07/13/24 12:00 07/24/24 15:41 1,000 ML Dexmedetomidine HCl 400 mcg/ Dextrose 100 ml @ 4.73 mls/hr Q21H9M IV 07/15/24 20:00 07/19/24 08:49 7.095 MLS/HR Lactulose 30 ml DAILY PO 07/17/24 10:00 07/23/24 09:48 30 ML Metoclopramide HCl 5 mg Q8HR IV 07/16/24 22:00 07/26/24 05:18 5 MG Albuterol 2.5 mg Q6HR HHN 07/18/24 18:00 07/26/24 07:02 2.5 MG Ipratropium [place] 0.5 mg Q6HR NEB 07/18/24 18:00 07/26/24 07:02 0.5 MG Hydralazine HCl 10 mg Q4HR PRN IV 07/19/24 15:30 Hold 07/22/24 09:41 10 MG Diagnostic Test (Pha) 1 strip IQ4HR 07/21/24 14:00 07/26/24 08:50 1 STRIP Insulin Human Regular IQ4HR SC 07/21/24 14:00 07/23/24 01:08 3 UNITS Dextrose 50 ml UD PRN IV 07/21/24 13:00 Labetalol HCl 10 mg Q2HPRN PRN IV 07/22/24 11:15 Bacitracin 1 applic DAILY TOP 07/24/24 10:00 07/25/24 10:21 1 APPLIC Amphotericin B Liposome 250 mg/ Dextrose 187.5 ml @ 93.75 mls/ hr DAILY@2100 IV 07/24/24 21:00 07/25/24 21:03 93.75 MLS/HR Acetaminophen 650 mg DAILY@2030 PO 07/24/24 20:30 07/25/24 21:00 650 MG Diphenhydramine HCl 25 mg DAILY@2029 IV 07/24/24 20:30 07/25/24 21:00 25 MG objective General: the patient is well developed and nourished. MENTAL STATUS: Subjective SPEECH, LANGUAGE, HIGHER CORTICAL FUNCTION: Subjective CRANIAL NERVES: Pupils are equal, round and reactive. EOMs full and conjugate.Facial sensation intact in all three divisions bilaterally. Mandibular strength intact. Facial muscles symmetrical and strength intact. SENSATION: Sensation to touch and pinprick is ok MOTOR: Normal tone in the upper and lower extremity. Normal muscle bulk. No fasciculations. No abnormal movements or posturing. Moves extremities a little bit REFLEXES: Deep tendon reflexes are symmetrical. No pathological reflexes. CEREBELLAR/COORDINATION: Deferred GAIT/STATION: deferred laboratory and microbiology Laboratory Tests 07/26/24 03:15 07/25/24 03:40 Test 07/25/24 03:40 Range/Units Serum Glucose 91 74-106 mg/dL Problem List Altered mental status, improving Metabolic encephalopathy Hypoxic encephalopathy Toxic encephalopathy Hepatic encephalopathy Respiratory failure Sepsis/septic shock Pneumonia Cellulitis Metabolic acidosis Coagulopathy Elevated liver function test Thrombocytopenia Macrocytic anemia Elevated liver function tests ICU myopathy Looks worse Assessment/Plan Monitoring Supportive treatment ICU care MR brain scan later Stabilize vitals/pressor drip Respiratory support/BiPAP Oxygen Antibiotics GI prophylaxis/pantoprazole Infectious disease on case Pulmonary on case Cardiology on case Nephrology on case More recommendation per clinical course This medical document was created using an electronic medical record system with [employer] dictation system. Although this document has been carefully reviewed, there may still be some phonetic and typographical errors. These areas are purely typographical due to imperfections of the software programs, and do not reflect any compromise in the patient's medical care Prognosis Critical, guarded Dietary Evaluation Review Comments: 1) If GI is accessible consider Nepro 1.8 @ 20 ml/hr with current rate of propofol on board 2) If pt remains NPO >7days of NPO status, provide TPN to meet at least 75% of estimated needs 3) Advance pt diet when medically feasible to a Renal Standard diet modified per TRANSFORMER ASSEMBLY SUPERVISOR recommendations Expected Outcomes/Goals: 1) Pt to receive nutrition support within 7 days of NPO status 2) Pt diet to advance 3) F/U in 2-3 days Plan discussed with: Other Critical Care Time(min): 35 SUMIT SANTAMARIA MD Jul 26, 2024 10:28
[2024-07-26 11:02] LABS: Chloride 98 mmol/L (98-107); Sodium 139 mmol/L (136-145)
[2024-07-26 11:03] LABS: Anion Gap 21 (5-15); Calcium 7.4 mg/dL (8.7-10.4); Carbon Dioxide 20 mmol/L (20-31)
[2024-07-26 11:05] LABS: Potassium 5.7 mmol/L (3.5-5.1)
[2024-07-26 11:08] LABS: Glucose 93 mg/dL (74-106)
[2024-07-26 11:10] LABS: Blood Urea Nitrogen 117 mg/dL (9-23)
[2024-07-26 11:24] LABS: BUN/Creatinine Ratio 14.3 (10.0-20.0)
--- NOTE | 2024-07-26 11:40 | DVHPN2 ---
Subjective Metabolic encephalopathy Reviewed: Care Plan, H&P, Labs, Medications Changes from previous H/P or p: No Changes General: Per HPI Eyes: No Pain, No Vision change, No Conjunctivae inflammation, No Eyelid inflammation, No Other, No Redness ENT: No Ear pain, No Ear discharge, No Nose pain, No Nose discharge, No Nose congestion, No Mouth pain, No Mouth swelling, No Throat pain, No Throat swelling, No Other Cardiovascular: Chest Pain Respiratory: Cough Gastrointestinal: No Nausea, No Vomiting, No Abdominal Pain, No Diarrhea, No Constipation, No Melena, No Hematochezia, No Other Genitourinary: No Dysuria, No Frequency, No Incontinence, No Hematuria, No Retention, No Other Musculoskeletal: other, leg pain Skin: Other Objective Vitals Vital Signs Date Time Temp Pulse Resp B/P (MAP) Pulse Ox O2 Delivery O2 Flow Rate FiO2 07/26/24 11:30 86/49 07/26/24 10:30 83 99 Facial BiPAP Mask 30 07/26/24 10:00 23 07/26/24 00:03 3 07/26/24 00:00 97.2 97.2 Intake/Output Intake and Output 07/26/24 07:00 Intake Total 609.107 ml Output Total 0 ml Balance 609.107 ml IV Total 538.107 ml Tube Feeding 71 ml Output Urine Total 0 ml # Bowel Movements 3 General Appearance: Alert, Cooperative, Other HEENT: PERRLA Lungs: Other (Patient on BiPAP) Cardiovascular: Regular rate, Normal S1, Normal S2 Abdomen: Normal bowel sounds, Soft, No tenderness Musculoskeletal: Other (No motor movement) Neuro: Other (Unable to assess) Skin: Wounds (See nurse notes and pictures) Psych/Mental Status: Other (Unable to assess) Medications Current Medications Medications Dose Ordered Sig/Rey Route Start Time Stop Time Status Last Admin Dose Admin Vancomycin HCl 0 ml @ 0 mls/hr UD IV 07/08/24 17:00 Sodium Chloride 10 ml Q8HR IV 07/09/24 06:00 07/26/24 05:19 10 ML Vasopressin 20 units/Sodium Chloride 100 ml @ 9 mls/hr Q11H7M IV 07/09/24 13:15 07/26/24 10:56 9 MLS/HR Norepinephrine Bitartrate 32 mg/ Sodium Chloride 250 ml @ 0.938 mls/ hr Q24H IV 07/09/24 15:30 07/25/24 21:04 9.375 MLS/HR Phenylephrine HCl 80 mg/Sodium Chloride 250 ml @ 7.5 mls/hr Q24H IV 07/09/24 15:45 07/26/24 05:12 7.5 MLS/HR Epinephrine HCl 250 ml @ 7.5 mls/hr Q24H IV 07/09/24 17:00 07/26/24 11:28 7.5 MLS/HR Pantoprazole Sodium 40 mg DAILY IV 07/10/24 10:00 07/25/24 10:21 40 MG Epoetin Justus-epbx 10,000 unit MWF SC 07/14/24 21:00 07/23/24 14:26 10,000 UNIT Meropenem 50 ml @ 17 mls/hr Q24H IV 07/13/24 22:00 07/25/24 21:00 17 MLS/HR Albumin Human 50 ml @ 100 mls/hr PRN PRN IV 07/13/24 08:30 Cancel Albumin Human 50 ml @ 50 mls/hr PRN PRN IV 07/13/24 08:20 07/26/24 10:54 50 MLS/HR Enteral Nutritional Formula 1,000 ml 30ML/HR GT 07/13/24 12:00 07/24/24 15:41 1,000 ML Dexmedetomidine HCl 400 mcg/ Dextrose 100 ml @ 4.73 mls/hr Q21H9M IV 07/15/24 20:00 07/19/24 08:49 7.095 MLS/HR Lactulose 30 ml DAILY PO 07/17/24 10:00 07/23/24 09:48 30 ML Metoclopramide HCl 5 mg Q8HR IV 07/16/24 22:00 07/26/24 05:18 5 MG Albuterol 2.5 mg Q6HR HHN 07/18/24 18:00 07/26/24 07:02 2.5 MG Ipratropium [place] 0.5 mg Q6HR NEB 07/18/24 18:00 07/26/24 07:02 0.5 MG Hydralazine HCl 10 mg Q4HR PRN IV 07/19/24 15:30 Hold 07/22/24 09:41 10 MG Diagnostic Test (Pha) 1 strip IQ4HR 07/21/24 14:00 07/26/24 08:50 1 STRIP Insulin Human Regular IQ4HR SC 07/21/24 14:00 07/23/24 01:08 3 UNITS Dextrose 50 ml UD PRN IV 07/21/24 13:00 Labetalol HCl 10 mg Q2HPRN PRN IV 07/22/24 11:15 Bacitracin 1 applic DAILY TOP 07/24/24 10:00 07/25/24 10:21 1 APPLIC Amphotericin B Liposome 250 mg/ Dextrose 187.5 ml @ 93.75 mls/ hr DAILY@2100 IV 07/24/24 21:00 07/25/24 21:03 93.75 MLS/HR Acetaminophen 650 mg DAILY@2029 PO 07/24/24 20:30 07/25/24 21:00 650 MG Diphenhydramine HCl 25 mg DAILY@2030 IV 07/24/24 20:30 07/25/24 21:00 25 MG Laboratory Results Laboratory Tests 07/26/24 03:15 Chemistry Test 07/26/24 03:15 Calcium Level 7.4 mg/dL (8.7-10.4) L Microbiology Microbiology Date/Time Source Procedure Growth Status 07/24/24 18:29 Blood Blood Culture - Preliminary NO GROWTH AFTER 24 HOURS OF INCUBATION. Resulted 07/17/24 15:35 Bronchial Washings Gram Stain - Final Resulted 07/17/24 15:35 Bronchial Washings Respiratory Culture - Preliminary Resulted 07/09/24 19:55 Trachea Gram Stain - Final Complete 07/09/24 19:55 Trachea Respiratory Culture - Final Complete Labs and/or images reviewed: Labs reviewed by me, Image(s) reviewed by me Assessment/Plan Assessment/Plan Impression: -septic shock -right leg cellulitis,? Necrotizing fasciitis -ESRD with hemodialysis, previous nephrectomy -coronary artery disease with previous CABG -dilated cardiomyopathy -acute on chronic systolic and diastolic heart failure with ejection fraction 25% -morbid obesity -hypocoagulable state -thrombocytopenia -hypoalbuminemia Plan: -events: Patient extubated on BiPAP. Currently receiving hemodialysis and is now in shock on multiple vasopressors. Infectious Disease consultation has been placed with patient being treated with amphotericin B, vancomycin, meropenem. Patient noted to have filamentous fungi on sputum culture. -repeat ABG -nephrology consultation : Managing ESRD, HD -pulmonary consultation: Continue current BiPAP settings -wound care right lower extremity -continue current sedation -PUD, DVT prophylaxis -repeat chest x-ray and labs in a.m. Critical care time spent with patient discussing and formulating plan of care: 40 minutes. This does not include time spent performing procedures. This medical document was created using an electronic medical record system with [employer] dictation system. Although this document has been carefully reviewed, there may still be some phonetic and typographical errors. These areas are purely typographical due to imperfections of the software programs, and do not reflect any compromise in the patient's medical care. Plan discussed with: Patient, Other (RN) My Orders Orders - MAYRA CALL NP Procedure Category Date Status Time Complete Blood Count LAB 07/27/24 Verified 04:00 Chest Xray 1 View XY 07/26/24 Logged 10:22 Abg W/ Co-Ox RT 07/26/24 Transmitted 11:33 Date of Service: Jul 26, 2024 Billing Provider: MAYRA CALL NP Common Visit Codes: [id number] CARE [id number] MIN MAYRA CALL NP Jul 26, 2024 11:39
--- NOTE | 2024-07-26 12:01 | DVHPN2 ---
Progress Note Date Seen: Jul 26, 2024 Has the PT tested + for MRSA If YES, has PT been informed?: No Medical Necessity Reason Pt with a Central, PICC or Fol: Yes The following are medically ne: Central Line Subjective Patient reports: Feels worse Review of Systems: RESPIRATORY:Abnormal Objective vital signs Vital Sign Date Time Temp Pulse Resp B/P (MAP) Pulse Ox O2 Delivery O2 Flow Rate FiO2 07/26/24 11:52 22 100 Bi-Pap+ 30 30 07/26/24 11:45 107 85/48 (60) 07/26/24 08:00 99.8 99.8 07/26/24 00:03 3 Total Intake and Output 07/25/24 07/25/24 07/26/24 15:00 23:00 07:00 Intake Total 34.665 ml 281.500 ml 292.942 ml Output Total 0 ml Balance 34.665 ml 281.500 ml 292.942 ml medications Current Medications Medications Dose Ordered Sig/Rey Route Start Time Stop Time Status Last Admin Dose Admin Vancomycin HCl 0 ml @ 0 mls/hr UD IV 07/08/24 17:00 Sodium Chloride 10 ml Q8HR IV 07/09/24 06:00 07/26/24 05:19 10 ML Vasopressin 20 units/Sodium Chloride 100 ml @ 9 mls/hr Q11H7M IV 07/09/24 13:15 07/26/24 10:56 9 MLS/HR Norepinephrine Bitartrate 32 mg/ Sodium Chloride 250 ml @ 0.938 mls/ hr Q24H IV 07/09/24 15:30 07/25/24 21:04 9.375 MLS/HR Phenylephrine HCl 80 mg/Sodium Chloride 250 ml @ 7.5 mls/hr Q24H IV 07/09/24 15:45 07/26/24 05:12 7.5 MLS/HR Epinephrine HCl 250 ml @ 7.5 mls/hr Q24H IV 07/09/24 17:00 07/26/24 11:28 7.5 MLS/HR Pantoprazole Sodium 40 mg DAILY IV 07/10/24 10:00 07/25/24 10:21 40 MG Epoetin Justus-epbx 10,000 unit MWF SC 07/14/24 21:00 07/23/24 14:26 10,000 UNIT Meropenem 50 ml @ 17 mls/hr Q24H IV 07/13/24 22:00 07/25/24 21:00 17 MLS/HR Albumin Human 50 ml @ 100 mls/hr PRN PRN IV 07/13/24 08:30 Cancel Albumin Human 50 ml @ 50 mls/hr PRN PRN IV 07/13/24 08:20 07/26/24 10:54 50 MLS/HR Enteral Nutritional Formula 1,000 ml 30ML/HR GT 07/13/24 12:00 07/24/24 15:41 1,000 ML Dexmedetomidine HCl 400 mcg/ Dextrose 100 ml @ 4.73 mls/hr Q21H9M IV 07/15/24 20:00 07/19/24 08:49 7.095 MLS/HR Lactulose 30 ml DAILY PO 07/17/24 10:00 07/23/24 09:48 30 ML Metoclopramide HCl 5 mg Q8HR IV 07/16/24 22:00 07/26/24 05:18 5 MG Albuterol 2.5 mg Q6HR HHN 07/18/24 18:00 07/26/24 07:02 2.5 MG Ipratropium [place] 0.5 mg Q6HR NEB 07/18/24 18:00 07/26/24 07:02 0.5 MG Hydralazine HCl 10 mg Q4HR PRN IV 07/19/24 15:30 Hold 07/22/24 09:41 10 MG Diagnostic Test (Pha) 1 strip IQ4HR 07/21/24 14:00 07/26/24 08:50 1 STRIP Insulin Human Regular IQ4HR SC 07/21/24 14:00 07/23/24 01:08 3 UNITS Dextrose 50 ml UD PRN IV 07/21/24 13:00 Labetalol HCl 10 mg Q2HPRN PRN IV 07/22/24 11:15 Bacitracin 1 applic DAILY TOP 07/24/24 10:00 07/25/24 10:21 1 APPLIC Amphotericin B Liposome 250 mg/ Dextrose 187.5 ml @ 93.75 mls/ hr DAILY@2100 IV 07/24/24 21:00 07/25/24 21:03 93.75 MLS/HR Acetaminophen 650 mg DAILY@2030 PO 07/24/24 20:30 07/25/24 21:00 650 MG Diphenhydramine HCl 25 mg DAILY@2029 IV 07/24/24 20:30 07/25/24 21:00 25 MG Examination: GENERAL:Abnormal, NECK:Abnormal, LUNGS:Abnormal, CVS:Abnormal, ABDOMEN:Abnormal, SKIN:Abnormal laboratory and microbiology Laboratory Tests 07/26/24 03:15 Test 07/26/24 03:15 Range/Units Serum Glucose 93 74-106 mg/dL Microbiology Date/Time Source Procedure Growth Status 07/24/24 18:29 Blood Blood Culture - Preliminary NO GROWTH AFTER 24 HOURS OF INCUBATION. Resulted 07/17/24 15:35 Bronchial Washings Gram Stain - Final Resulted 07/17/24 15:35 Bronchial Washings Respiratory Culture - Preliminary Resulted 07/09/24 19:55 Trachea Gram Stain - Final Complete 07/09/24 19:55 Trachea Respiratory Culture - Final Complete Problem List/Assessment/Plan Problem List/Assessment/Plan ESRD on HD uremic acidosis / lactic acidosis septic shock with gram-negative anabella bacteremia fungal infection lower extremity wound anemia hypoglycemia hyperkalemia HD today, unstable now on multiple pressors. advise reculture today central line replacement and replace all lines pressors to keep MAP > 65 give albumin, no UF today will focus on metabolic clearance fluid removal as tolerated Ecoli bacteremia on merrem ABX Plan discussed with: Other My Orders My Orders Orders - LULU RICHARD MD Procedure Category Date Status Time Basic Metabolic Panel LAB 07/27/24 Verified 04:00 Blood Culture CIELO 07/26/24 Logged 11:40 Respiratory Culture CIELO 07/26/24 Logged W/ Gs 11:40 Dietary Evaluation Review Comments: 1) If GI is accessible consider Nepro 1.8 @ 20 ml/hr with current rate of propofol on board 2) If pt remains NPO >7days of NPO status, provide TPN to meet at least 75% of estimated needs 3) Advance pt diet when medically feasible to a Renal Standard diet modified per COINING PRESS OPERATOR recommendations Expected Outcomes/Goals: 1) Pt to receive nutrition support within 7 days of NPO status 2) Pt diet to advance 3) F/U in 2-3 days Critical Care Time (mins): 65 LULU RICHARD MD Jul 26, 2024 12:01
--- NOTE | 2024-07-26 14:18 | DVH ---
EXAM: XY CHEST XRAY 1 VIEW TECHNIQUE: Single frontal chest radiograph CLINICAL HISTORY: chf COMPARISON: XY CHEST PORTABLE on DOS: 07/24/24, XY CHEST XRAY 1 VIEW on DOS: 07/22/24, XY CHEST PORTABL E on DOS: 07/20/24 Findings/Impression: Frontal chest radiograph demonstrates no acute osseous or superficial soft tissue abnormalities. Enteric tube is descending down into the stomach with the distal tip not visualized. The trachea is midline. Borderline cardiomegaly with pulmonary vascular congestion. No pneumothorax, pleural effusions, or consolidations.
[2024-07-26] MEDS: DEXTROSE (50%) 50ML SYRG IV PRN (14:23)
[2024-07-26] MEDS: SODIUM CHL 0.9% 1000 ML BAG XX ONE ×2 (14:28→14:29)
[2024-07-26 14:49] LABS: Base Excess 1.3 mmol/L (-2.0-3.0)
--- NOTE | 2024-07-26 15:11 | ECG ---
[facility] Test Date: 2024-07-24 Test Time: 03:41:30 Pat Name: LARON GARCIA Department: Room: [address] [place] [address] A Gender: M Disability Program Navigator: : 1965 Requested By: DG AQUNIO Order Number: [id number] Reading MD: Cecile Dawkins Measurements Intervals [place] Rate: 114 P: 40 TN: 138 QRS: -13 QRSD: 72 T: 39 QT: 320 QTc: 441 Interpretive Statements Sinus tachycardia Possible Left atrial enlargement Cannot rule out Anteroseptal infarct , age undetermined T wave abnormality, anteroseptal leads; consider ishcemia Electronically Signed On 07-28-2024 9:52:39 PST by Cecile Dawkins Please click the below link to view image of tracing.
[2024-07-26] MEDS ORDERED: CLINIMIX PER PHARMACY 0 ML IV SCH (15:30)
[2024-07-26] MEDS ORDERED: DEXTROSE (50%) 50ML SYRG IV SCH (15:45)
[2024-07-26] MEDS: PANTOPRAZOLE 40mg/50ML NS AE 50 ML IV SCH (16:19)
[2024-07-26] MEDS: MORPHINE SULFATE INJ 2 MG/ml SYRG ONE (17:07)
--- NOTE | 2024-07-26 18:35 | DVH ---
EXAM: XR Chest, 1 View CLINICAL INDICATION: triple lumen cath placement confirmation TECHNIQUE: Frontal view of the chest. COMPARISON: XY CHEST XRAY 1 VIEW on DOS: 07/26/24, XY CHEST PORTABLE on DOS: 07/24/24, XY CHEST XRAY 1 VIEW on DOS: 07/22/24, XY CHEST PORTABLE on DOS: 07/20/24, XY CHEST PORTABLE on DOS: 07/19/24 FINDINGS: LUNGS AND PLEURAL SPACES: Mild CHF. No consolidation. No pneumothorax. HEART: Unremarkable. No cardiomegaly. MEDIASTINUM: Unremarkable. Normal mediastinal contour. BONES/JOINTS: Unremarkable. No acute fracture. TUBES, LINES AND DEVICES: Right internal jugular central venous catheter tip in the superior vena ca va. OTHER FINDINGS: . IMPRESSION: Mild CHF.
[2024-07-26] MEDS: InsuLIN REG 1unit/0.01ml Soln (100units/ml) SC SCH (18:45)
[2024-07-26] MEDS: ACCU-CHEK COMFORT CURVE STRIP VI SCH (18:45)
[2024-07-26 18:50] LABS: Basophils # (auto) 0.1 10 ^3/uL (0-0.2); Basophils % (auto) 0.4 % (0.0-2.0); Eosinophils # (auto) 0.3 10 ^3/uL (0-0.8); Eosinophils % (auto) 1.6 % (0.0-7.0); Hematocrit 30.2 % (41.0-53.0); Hemoglobin 9.6 g/dL (13.5-17.5); Lymphocytes # (auto) 1.4 10 ^3/uL (0.4-5.4); Lymphocytes % (auto) 7.4 % (10.0-50.0); Mean Corpuscular Hgb Conc. 31.9 g/dL (32.0-36.0); Mean Corpuscular Volume 106.5 fL (80.0-100.0); Monocytes # (auto) 1.8 10 ^3/uL (0-1.3); Monocytes % (auto) 9.7 % (0.0-12.0); Neutrophils # (auto) 15.1 10 ^3/uL (1.6-8.6); Neutrophils % (auto) 80.9 % (37.0-80.0); Platelet Count (auto) 83 10^3/uL (140-450); Red Blood Cells 2.84 10^6/uL (4.5-5.90); White Blood Cell 18.6 10^3/uL (4.4-10.8)
[2024-07-26 18:51] LABS: Red Cell Distribution Width 20.2 % (11.8-14.3)
[2024-07-26 18:54] LABS: Magnesium 2.6 mg/dL (1.6-2.6)
[2024-07-26 18:55] LABS: Albumin 3.2 g/dL (3.2-4.8)
[2024-07-26 19:00] LABS: Phosphorus 10.3 mg/dL (2.4-5.1)
--- NOTE | 2024-07-26 20:08 | DVHINCON2 ---
Date of service: Jul 26, 2024 Referring Physician Stephen Draper Reason for Consultation Coffee grounds via NGT History of Present Illness Mr. Daniel is a 58 yo gentleman with a history of hypertension, dyslipidemia, coronary artery disease, kidney cancer status post nephrectomy, kidney failure on hemodialysis, the patient was brought to the [facility] on 07/08/24. During his hemodialysis on 07/08/2024, the patient was developed chest pain, coughing, and he was brought to the hospital, where the patient was found to have acute respiratory failure and was intubated on 07/09/24, he was also found to have sepsis, septic shock, pneumonia, right leg cellulitis, metabolic acidosis, thrombocytopenia, coagulopathy. With appropriate treatment, the patient was improving, and was extubated on 07/18/2024. Patient is currently on BiPAP GI was consulted because of moderate amount of coffee-ground via the NG tube which has been connected to low continuous suction and about 300 mL were removed during the shift. There was no reported abdominal pain nausea vomiting or melena. Patient has had received a couple of doses of heparin but does not appear to be on any blood thinners at this time Family History: Patient reports no known family medical history. Allergies: Coded Allergies: NO KNOWN ALLERGIES (Unverified , 07/08/24) Home Meds Reported Medications Cholecalciferol (VITAMIN D3) 2,000 Unit Tab, 1 TAB PO DAILY, #30 TAB 5 Refills 07/10/24 Calcium Acetate (Phosphate Bin (Calcium Acetate) 667 Mg Cap, 667 MG PO TIDWM for 30 Days, MG 07/10/24 Sildenafil Citrate (SILDENAFIL CITRATE) 20 Mg Tab, 20 MG PO TID, TAB 07/10/24 Atorvastatin Calcium (ATORVASTATIN CALCIUM) 40 Mg Tab, 1 TAB PO HS 07/10/24 Apixaban Base (ELIQUIS) 5 Mg Tab, 1 TAB PO BID 07/10/24 Hydroxyzine Hcl (Hydroxyzine Hcl) 25 Mg Tab, 1 TAB PO BID PRN for FOR ITCHING 07/10/24 Ranolazine (Ranolazine ER) 500 Mg Tab, 1 TAB PO BID 07/10/24 Allopurinol (Allopurinol) 300 Mg Tab, 300 TAB PO BID 07/10/24 Current Medications Current Medications Medications (Trade) Dose Ordered Sig/Rey Route PRN Reason Start Time Stop Time Status Last Admin Pantoprazole Sodium 50 ml @ 10 mls/hr Q5H IV 07/26/24 15:15 07/26/24 16:19 Amino Acids 0 ml @ 0 mls/hr PER PHARMACY IV 07/26/24 15:30 Diagnostic Test (Pha) (Accu-Chek Comfort Curve T) 1 strip Q6HR 07/26/24 18:00 07/26/24 18:45 Insulin Human Regular (InsuLIN R) FOLLOW SLIDING SCALE Q6HR SC 07/26/24 18:00 Dextrose 50 ml UD IV 07/26/24 15:45 Amino Acids/ Electrolytes/ Dextrose 1,000 ml @ 41 mls/hr DAILY@2200 IV 07/26/24 22:00 Epoetin Justus-epbx (Retacrit) 10,000 unit MWF@2100 SC 07/28/24 21:00 Vital Signs Vital Signs Date Time Temp Pulse Resp B/P (MAP) Pulse Ox O2 Delivery O2 Flow Rate FiO2 07/26/24 19:00 107 26 126/44 (71) 100 07/26/24 18:30 Facial BiPAP Mask 60 07/26/24 16:00 99.1 99.1 07/26/24 00:03 3 Physical Exam Gen.: Patient lying in bed in no apparent distress. On BiPAP Eyes: EOMI/PERRLA. Chest: Decreased air entry bilaterally. No wheezing or rhonchi. Cardiovascular: Positive S1, positive S2. Regular rate and rhythm. Abdomen: Positive bowel sounds in all 4 quadrants. Soft, non-tender, non- distended. Extremities: 2+ radial pulses bilaterally. No lower extremity edema. Neuro: Awake, alert. Following commands. No gross motor or sensory deficits. Labs/Diagnostic Data Labs Test 07/26/24 18:42 07/26/24 18:00 07/26/24 14:43 07/26/24 03:15 Range/Units POC Glucose 150 H 70-106 mg/dl White Blood Count 18.6 H 4.4-10.8 10^3/uL Red Blood Count 2.84 L 4.5-5.90 10^6/uL Hemoglobin 9.6 #L 13.5-17.5 g/dL Hematocrit 30.2 #L 41.0-53.0 % Mean Corpuscular Volume 106.5 H 80.0-100.0 fL Mean Corpuscular Hemoglobin 34.0 H 28.0-32.0 pg Mean Corpuscular Hemoglobin Concent 31.9 L 32.0-36.0 g/dL Red Cell Distribution Width 20.2 H 11.8-14.3 % Platelet Count 83 L 140-450 10^3/uL Mean Platelet Volume 11.7 H 6.9-10.8 fL Neutrophils (%) (Auto) 80.9 H 37.0-80.0 % Lymphocytes (%) (Auto) 7.4 L 10.0-50.0 % Monocytes (%) (Auto) 9.7 0.0-12.0 % Eosinophils (%) (Auto) 1.6 0.0-7.0 % Basophils (%) (Auto) 0.4 0.0-2.0 % Neutrophils # (Auto) 15.1 H 1.6-8.6 10 ^3/uL Lymphocytes # (Auto) 1.4 0.4-5.4 10 ^3/uL Monocytes # (Auto) 1.8 H 0-1.3 10 ^3/uL Eosinophils # (Auto) 0.3 0-0.8 10 ^3/uL Basophils # (Auto) 0.1 0-0.2 10 ^3/uL Nucleated Red Blood Cells 0.0 % Blood Gas Specimen Type Arterial Blood Gas Sample Site Arterial line Blood Gas Patient Temperature 37.0 Arterial Blood Date Drawn [id number] Arterial Blood pH 7.524 H 7.350-7.450 Arterial Blood Partial Pressure CO2 29.2 L 35.0-48.0 mmHg Arterial Blood Partial Pressure O2 55.7 L 83.0-108.0 mmHg Arterial Blood HCO3 23.5 21.0-28.0 mmol/L Arterial Blood Oxygen Saturation 84.2 *L 94.0-98.0 % Arterial Blood Base Excess 1.3 -2.0-3.0 mmol/L Arterial Blood Oxyhemoglobin 83.6 L 94.0-98.0 % Arterial Blood Carboxyhemoglobin 0.4 L 0.5-1.5 % Arterial Blood Methemoglobin 0.3 0.0-1.5 % Tima Test N/a Blood Gas Total Hemoglobin 10.50 L 13.5-17.5 g/dL Blood Gas Set Respiration Rate 12.0 Blood Gas Modality Mask - bipap FiO2 % 40.0 Blood Gas EPAP 8 Blood Gas IPAP 12 Blood Gas Critical Value Read Back Yes Blood Gas Notified Whom Grip Wrapper ana draper Blood Gas Notified Time [id number] Blood Gas Notified By Conference Translator jone ramires Sodium Level 139 136-145 mmol/L Potassium Level 5.7 *H 3.5-5.1 mmol/L Chloride Level 98 98-107 mmol/L Carbon Dioxide Level 20 20-31 mmol/L Anion Gap 21 H 5-15 Blood Urea Nitrogen 117 #*H 9-23 mg/dL Creatinine 8.16 H 0.700-1.30 mg/dL Glomerular Filtration Rate Calc 7 >90 mL/min BUN/Creatinine Ratio 14.3 10.0-20.0 Serum Glucose 93 74-106 mg/dL Calcium Level 7.4 L 8.7-10.4 mg/dL Phosphorus Level 10.3 H 2.4-5.1 mg/dL Magnesium Level 2.6 1.6-2.6 mg/dL Albumin 3.2 3.2-4.8 g/dL Random Vancomycin Level 16.3 H 5-10 ug/mL Test 07/25/24 03:40 07/24/24 07:16 07/23/24 06:20 07/19/24 21:24 Range/Units Platelet Estimate Decrea Large Platelets Few Anisocytosis (manual) Slight Macrocytosis Slight Total Bilirubin 12.2 H 0.2-1.0 mg/dL Aspartate Amino Transferase (AST) 111 H 13-40 U/L Alanine Aminotransferase (ALT) 82 H 7-40 U/L Alkaline Phosphatase 196 H 46-116 U/L Total Protein 6.2 5.7-8.2 g/dL Blood Gas Pressure Support 4 Ammonia < 10 L 11-32 umol/L Creatine Kinase 1579 H 46-171 U/L Vitamin B12 Level > 4000 H 211-911 pg/mL Folic Acid 9.12 >5.38 ng/mL Test 07/19/24 15:47 07/18/24 14:38 07/18/24 09:23 07/18/24 07:07 Range/Units Miscellaneous Referred Test (Rm Tmp Sent to [facility] Blood Gas Spontaneous Rate 24 Blood Gas PEEP or CPAP 7.0 Specimen Drawn By lisa rt Blood Gas Spontaneous Tidal Volume 916 Blood Gas Inspiratory Pressure 19.0 Bl Gas Inspiratory/Expiratory Ratio 1:2.2 Blood Gas Tidal Volume 400.0 Test 07/18/24 03:48 07/17/24 14:23 07/14/24 03:08 07/13/24 03:50 Range/Units Prothrombin Time 17.4 H 9.3-11.8 sec Prothrombin Time INR 1.73 H 0.9-1.15 Activated Partial Thromboplast Time 34.2 24.5-34.5 SEC Blood Gas Comments Differential Total Cells Counted 100.0 100 Neutrophils % (Manual) 84 H 37.0-80.0 Band Neutrophils % (Manual) 12 Lymphocytes % (Manual) 3 L 10.0-50.0 Monocytes % (Manual) 0 0-12 Eosinophils % (Manual) 0 0-7 Basophils % (Manual) 0 0.0-2.0 Metamyelocytes % (manual) 0 Myelocytes % (Manual) 1 Promyelocytes % (Manual) 0 Blast Cells % (Manual) 0 Reactive Lymphocytes 0 Tear Drop Cells Moderate Stomatocytes Few Schistocytes Few Iron Level 136 65-175 ug/dL Total Iron Binding Capacity 186 L 250-425 ug/dL Percent Iron Saturation 73.1 H 20-55 % Ferritin > 61680.0 H 22-322 ng/mL Test 07/11/24 13:02 07/11/24 03:26 07/10/24 22:02 07/10/24 19:58 Range/Units Lactic Acid Level 12.2 *H 0.4-2.0 mmol/L Smudge Cells 2 /100 WBC Fibrinogen 433 H 177-375 mg/dL D-Dimer, Quantitative 11.78 H 0.0-0.49 mg/L FEU Haptoglobin 212 29-370 mg/dL Lactate Dehydrogenase > 4500 H 120-246 U/L HIV (1&2) Antibody Negative Negative Test 07/10/24 10:11 07/10/24 04:01 07/09/24 16:30 07/09/24 16:27 Range/Units Microcytosis Slight Ovalocytes Few Elizabeth Cells Few Hemoglobin A1c < 3.8 <5.7 % A1C Triglycerides Level 364 H < 150 mg/dL Cholesterol Level 60 < 200 mg/dL LDL Cholesterol 5 < 100 mg/dL HDL Cholesterol < 5 L 40-59 mg/dL Thyroid Stimulating Hormone (TSH) 0.33 L 0.55-4.78 uIU/mL B-Type Natriuretic Peptide > 5000.00 0-100 pg/mL Hepatitis A IgM Antibody Negative Hepatitis B Surface Antigen Negative Negative Hepatitis B Core IgM Antibody Negative Negative Hepatitis C Antibody Negative Negative Blood Gas Liter Flow 2.00 Test 07/08/24 17:54 07/08/24 15:07 Range/Units Troponin I High Sensitivity 33 </=54 ng/L Influenza Type A Antigen Negative Negative Influenza Type B Antigen Negative Negative SARS-CoV-2 Antigen (Rapid) Negative NEGATIVE Microbiology Date/Time Source Procedure Growth Status 07/24/24 18:29 Blood Blood Culture - Preliminary NO GROWTH AFTER 48 HOURS OF INCUBATION. Resulted 07/17/24 15:35 Bronchial Washings Gram Stain - Final Resulted 07/17/24 15:35 Bronchial Washings Respiratory Culture - Preliminary Resulted 07/09/24 19:55 Trachea Gram Stain - Final Complete 07/09/24 19:55 Trachea Respiratory Culture - Final Complete Liver USG negative 07/10/24 Problems(with codes): (1) Coffee ground emesis (2) Necrotizing fasciitis of lower leg (3) Elevated liver enzymes (4) End-stage renal disease on hemodialysis (5) Acute kidney failure, unspecified (6) Severe anemia (7) Generalized weakness (8) Sepsis (9) Jaundice Plan/Recommendation Plan Coffee-ground emesis Patient at this time is not stable for endoscopic workup due to BiPAP requirements Continue IV Protonix drip Continue to monitor labs Lavage NG tube NG tube to low intermittent suction Transfuse if hemoglobin drops below seven Elevated liver enzymes It appears to have been initiated by hypoxic liver injury or shock liver The liver enzymes are trending down however the cholestasis is dragging Hepatitis profile liver enzymes are negative Continue to monitor labs Continue supportive care Prognosis remains guarded Plan discussed with: Other (ICU Nurse) VIVIANA SHI MD Jul 26, 2024 20:08
[2024-07-26] MEDS: VANCOMYCIN 500mg/100mL 100 ML IV ONE (20:25)
[2024-07-26] MEDS: AMINO ACID INFUSION IN D10W 1,000 ML IV SCH (20:58)
[2024-07-26] MEDS ORDERED: EPOETIN ALFA-EPBX 10,000 UNIT/1ML VIAL SC ONE ×2 (21:00)
[2024-07-26] MEDS: EPOETIN ALFA-EPBX 10,000 UNIT/1ML VIAL SC ONE (21:30)
--- NOTE | 2024-07-26 21:43 | DVHPN2 ---
Progress Note - Dictate Date Seen: Jul 26, 2024 Has the PT tested + for MRSA If YES, has PT been informed?: No Medical Necessity Reason Pt with a Central, PICC or Fol: Yes The following are medically ne: Central Line Subjective Patient was seen and evaluated in follow up in the ICU. Patient is on Bi-PAP, 60% FIO2. Patient is on vasopressors support. Patient is awake and follows commands. WBC 18.6, HGB 9.6, HCT 30.2, K 5.7, BUN 117, Chief Strategy Officer 8.16. vital signs Vital Sign Date Time Temp Pulse Resp B/P (MAP) Pulse Ox O2 Delivery O2 Flow Rate FiO2 07/26/24 20:59 106/43 07/26/24 20:20 109 100 Facial BiPAP Mask 60 07/26/24 19:00 26 07/26/24 16:00 99.1 99.1 07/26/24 00:03 3 Total Intake and Output 07/25/24 07/25/24 07/26/24 15:00 23:00 07:00 Intake Total 34.665 ml 281.500 ml 292.942 ml Output Total 0 ml Balance 34.665 ml 281.500 ml 292.942 ml medications Current Medications Medications Dose Ordered Sig/Rey Route Start Time Stop Time Status Last Admin Dose Admin Vancomycin HCl 0 ml @ 0 mls/hr UD IV 07/08/24 17:00 Sodium Chloride 10 ml Q8HR IV 07/09/24 06:00 07/26/24 20:58 10 ML Vasopressin 20 units/Sodium Chloride 100 ml @ 9 mls/hr Q11H7M IV 07/09/24 13:15 07/26/24 20:59 9 MLS/HR Norepinephrine Bitartrate 32 mg/ Sodium Chloride 250 ml @ 0.938 mls/ hr Q24H IV 07/09/24 15:30 07/26/24 12:00 14.063 MLS/HR Phenylephrine HCl 80 mg/Sodium Chloride 250 ml @ 7.5 mls/hr Q24H IV 07/09/24 15:45 07/26/24 21:01 33.75 MLS/HR Epinephrine HCl 250 ml @ 7.5 mls/hr Q24H IV 07/09/24 17:00 07/26/24 11:28 7.5 MLS/HR Meropenem 50 ml @ 17 mls/hr Q24H IV 07/13/24 22:00 07/26/24 20:31 17 MLS/HR Albumin Human 50 ml @ 100 mls/hr PRN PRN IV 07/13/24 08:30 Cancel Albumin Human 50 ml @ 50 mls/hr PRN PRN IV 07/13/24 08:20 07/26/24 10:54 50 MLS/HR Enteral Nutritional Formula 1,000 ml 30ML/HR GT 07/13/24 12:00 07/24/24 15:41 1,000 ML Albuterol 2.5 mg Q6HR HHN 07/18/24 18:00 07/26/24 18:27 2.5 MG Ipratropium [place] 0.5 mg Q6HR NEB 07/18/24 18:00 07/26/24 18:27 0.5 MG Hydralazine HCl 10 mg Q4HR PRN IV 07/19/24 15:30 Hold 07/22/24 09:41 10 MG Labetalol HCl 10 mg Q2HPRN PRN IV 07/22/24 11:15 Bacitracin 1 applic DAILY TOP 07/24/24 10:00 07/25/24 10:21 1 APPLIC Amphotericin B Liposome 250 mg/ Dextrose 187.5 ml @ 93.75 mls/ hr DAILY@2100 IV 07/24/24 21:00 07/26/24 20:58 93.75 MLS/HR Acetaminophen 650 mg DAILY@2030 PO 07/24/24 20:30 07/26/24 21:00 650 MG Diphenhydramine HCl 25 mg DAILY@2030 IV 07/24/24 20:30 07/26/24 21:00 25 MG Pantoprazole Sodium 50 ml @ 10 mls/hr Q5H IV 07/26/24 15:15 07/26/24 20:57 10 MLS/HR Amino Acids 0 ml @ 0 mls/hr PER PHARMACY IV 07/26/24 15:30 Diagnostic Test (Pha) 1 strip Q6HR 07/26/24 18:00 07/26/24 18:45 1 STRIP Insulin Human Regular FOLLOW SLIDING SCALE Q6HR SC 07/26/24 18:00 Dextrose 50 ml UD IV 07/26/24 15:45 Amino Acids/ Electrolytes/ Dextrose 1,000 ml @ 41 mls/hr DAILY@2200 IV 07/26/24 22:00 07/26/24 20:58 41 MLS/HR Epoetin Justus-epbx 10,000 unit MWF@2100 SC 07/28/24 21:00 objective GENERAL: Awake, altered. Morbidly obese. LUNGS: Decreased breath sounds. CARDIOVASCULAR: Heart sounds are good. ABDOMEN: Soft. EXT: BLE edema. SKIN: Ecchymosis to right upper thigh. laboratory and microbiology Laboratory Tests 07/26/24 18:00 07/26/24 03:15 Test 07/26/24 03:15 Range/Units Serum Glucose 93 74-106 mg/dL Problem List Hypotension secondary to septic shock. Coronary artery disease status post CABG in 2021. History of hypertension. Hyperlipidemia. Hyperkalemia. Acute anemia. Thrombocytopenia. Transaminitis. End-stage renal disease on hemodialysis. Renal cell carcinoma status post left nephrectomy. COPD. Asthma. Morbid obesity. Dilated cardiomyopathy. Metabolic encephalopathy. Assessment/Plan Continued all current supportive medical care. GI prophylactics. IV antibiotics as ordered. Vasopressors for hemodynamic support. Additional plan as per the hospital course. Critical care time of 45 minutes provided to include time spent evaluation of patient at bedside, when appropriate patient/family education for diagnosis, treatment plan, review of pertinent medical information and discussion of care with specialty providers and PCP. Dietary Evaluation Review Comments: 1) If GI is accessible consider Nepro 1.8 @ 20 ml/hr with current rate of propofol on board 2) If pt remains NPO >7days of NPO status, provide TPN to meet at least 75% of estimated needs 3) Advance pt diet when medically feasible to a Renal Standard diet modified per STONEWORKING BELT SANDER recommendations Expected Outcomes/Goals: 1) Pt to receive nutrition support within 7 days of NPO status 2) Pt diet to advance 3) F/U in 2-3 days Plan discussed with: Other FRIDA SIMMONS MD Jul 26, 2024 21:43
--- NOTE | 2024-07-26 23:39 | DVHPN2 ---
Progress Note - Dictate Date Seen: Jul 26, 2024 Has the PT tested + for MRSA If YES, has PT been informed?: No Medical Necessity Reason Pt with a Central, PICC or Fol: Yes The following are medically ne: Central Line Subjective Patient seen and examined at bedside. On BiPAP Overnight events reviewed vital signs Vital Sign Date Time Temp Pulse Resp B/P (MAP) Pulse Ox O2 Delivery O2 Flow Rate FiO2 07/26/24 23:35 130/51 07/26/24 22:10 100 100 Facial BiPAP Mask 60 07/26/24 19:00 26 07/26/24 16:00 99.1 99.1 07/26/24 00:03 3 Total Intake and Output 07/25/24 07/25/24 07/26/24 15:00 23:00 07:00 Intake Total 34.665 ml 281.500 ml 292.942 ml Output Total 0 ml Balance 34.665 ml 281.500 ml 292.942 ml medications Current Medications Medications Dose Ordered Sig/Rey Route Start Time Stop Time Status Last Admin Dose Admin Vancomycin HCl 0 ml @ 0 mls/hr UD IV 07/08/24 17:00 Sodium Chloride 10 ml Q8HR IV 07/09/24 06:00 07/26/24 20:58 10 ML Vasopressin 20 units/Sodium Chloride 100 ml @ 9 mls/hr Q11H7M IV 07/09/24 13:15 07/26/24 20:59 9 MLS/HR Norepinephrine Bitartrate 32 mg/ Sodium Chloride 250 ml @ 0.938 mls/ hr Q24H IV 07/09/24 15:30 07/26/24 12:00 14.063 MLS/HR Phenylephrine HCl 80 mg/Sodium Chloride 250 ml @ 7.5 mls/hr Q24H IV 07/09/24 15:45 07/26/24 21:01 33.75 MLS/HR Epinephrine HCl 250 ml @ 7.5 mls/hr Q24H IV 07/09/24 17:00 07/26/24 11:28 7.5 MLS/HR Meropenem 50 ml @ 17 mls/hr Q24H IV 07/13/24 22:00 07/26/24 20:31 17 MLS/HR Albumin Human 50 ml @ 100 mls/hr PRN PRN IV 07/13/24 08:30 Cancel Albumin Human 50 ml @ 50 mls/hr PRN PRN IV 07/13/24 08:20 07/26/24 10:54 50 MLS/HR Enteral Nutritional Formula 1,000 ml 30ML/HR GT 07/13/24 12:00 07/24/24 15:41 1,000 ML Albuterol 2.5 mg Q6HR HHN 07/18/24 18:00 07/26/24 18:27 2.5 MG Ipratropium [place] 0.5 mg Q6HR NEB 07/18/24 18:00 07/26/24 18:27 0.5 MG Hydralazine HCl 10 mg Q4HR PRN IV 07/19/24 15:30 Hold 07/22/24 09:41 10 MG Labetalol HCl 10 mg Q2HPRN PRN IV 07/22/24 11:15 Bacitracin 1 applic DAILY TOP 07/24/24 10:00 07/25/24 10:21 1 APPLIC Amphotericin B Liposome 250 mg/ Dextrose 187.5 ml @ 93.75 mls/ hr DAILY@2100 IV 07/24/24 21:00 07/26/24 20:58 93.75 MLS/HR Acetaminophen 650 mg DAILY@2029 PO 07/24/24 20:30 07/26/24 21:00 650 MG Diphenhydramine HCl 25 mg DAILY@2030 IV 07/24/24 20:30 07/26/24 21:00 25 MG Pantoprazole Sodium 50 ml @ 10 mls/hr Q5H IV 07/26/24 15:15 07/26/24 20:57 10 MLS/HR Amino Acids 0 ml @ 0 mls/hr PER PHARMACY IV 07/26/24 15:30 Diagnostic Test (Pha) 1 strip Q6HR 07/26/24 18:00 07/26/24 18:45 1 STRIP Insulin Human Regular FOLLOW SLIDING SCALE Q6HR SC 07/26/24 18:00 Dextrose 50 ml UD IV 07/26/24 15:45 Amino Acids/ Electrolytes/ Dextrose 1,000 ml @ 41 mls/hr DAILY@2200 IV 07/26/24 22:00 07/26/24 20:58 41 MLS/HR Epoetin Justus-epbx 10,000 unit MWF@2100 SC 07/28/24 21:00 objective Gen.: Patient lying in bed in no apparent distress. On BiPAP Head: Normocephalic, atraumatic. Eyes: EOMI/PERRLA. Ears: Normal hearing. Normal anatomy. Neck/trachea: Trachea midline, supple. Nose: Normal external anatomy. Mouth: Moist mucous membranes. Chest: Decreased air entry bilaterally. No wheezing or rhonchi. Cardiovascular: Positive S1, positive S2. Regular rate and rhythm. Abdomen: Positive bowel sounds in all 4 quadrants. Soft, non-tender, non- distended. : Deferred. Rectal: Deferred. Skin: Warm, dry. Intact. Extremities: 2+ radial pulses bilaterally. No lower extremity edema. Neuro: Awake, alert. Following commands. No gross motor or sensory deficits. Cranial nerves II through XII intact. Gait not assessed. laboratory and microbiology Laboratory Tests 07/26/24 18:00 07/26/24 03:15 Test 07/26/24 03:15 Range/Units Serum Glucose 93 74-106 mg/dL Assessment/Plan Impression: Acute hypoxic respiratory failure Pulmonary edema Necrotizing fasciitis Septic shock Morbid obesity Events: Currently on BiPAP with IPAP 12, EPAP 8, FiO2 60% Taper FiO2 as tolerated Replaced lines. Fungal infection - continue antifungal medication Continue bronchodilators Continue antibiotics On multiple pressors for hemodynamic support On Wojciech-Synephrine 180 mcg/min, epinephrine 5 mcg/min and vasopressin 0.03 units/min Titrate to keep MAP above 65 mmHg/SBP above 90 mmHg. Monitor hemodynamics Follow up GI recs NGT - coffee-ground emesis Monitor hemoglobin Tube feeds for nutritional support Monitor platelet count Oral care/suction NTS PRN to clear secretions Head of bed elevation Aspiration precautions. Monitor WBC Wound care Recommend PT eval. HD per Nephrology Monitor renal function Monitor electrolytes. Supplement as necessary. Nephrology recommendations appreciated U/S Doppler of left upper extremity negative for DVT. 07/17/24 - S/p therapeutic bronchoscopy w/ RLL BAL - cleared mucous plugging from L6-L10 and R6-R10 See separate procedure note for details. Labs and imaging reviewed. Rest of plan as noted below. Plan: s/p extubation on 07/18/24 On BiPAP with IPAP 12, EPAP 8, FiO2 60% Titrate to keep O2 sats above 92%. Off sedation Continue antibiotics. F/u cultures. Pressors for hemodynamic support Titrate to keep MAP above 65 mmHg/SBP above 90 mmHg. Monitor hemodynamics Monitor renal function Monitor electrolytes. Supplement as necessary. Monitor ins and outs. GI prophylaxis. DVT prophylaxis. Prognosis: Poor given patient's multiple co-morbidities. Condition: Critical Rest of plan per hospitalist and other consultants. A total of 35 minutes of critical care time was spent reviewing the patient record, examining the patient, making a diagnostic and therapeutic plan, discussing this plan with the medical personnel, following up on diagnostic studies and following the patient for clinical stability excluding any and all procedures. At least 50% of this time was spent in direct, [id number] contact. Thank you Dr. Johnson, for allowing me to participate in this patient's care. Further recommendations will depend on the patient's clinical course. Please do not hesitate to contact me if you have any questions or concerns. This medical document was created using an electronic medical record system with [employer] dictation system. Although these documentations are being carefully reviewed, there may still be some phonetic and typographical changes. The errors are purely typographical, due to imperfection on the software program, and do not reflect any compromise in the patient's medical care. Dietary Evaluation Review Comments: 1) If GI is accessible consider Nepro 1.8 @ 20 ml/hr with current rate of propofol on board 2) If pt remains NPO >7days of NPO status, provide TPN to meet at least 75% of estimated needs 3) Advance pt diet when medically feasible to a Renal Standard diet modified per [employer] SALES MANAGER recommendations Expected Outcomes/Goals: 1) Pt to receive nutrition support within 7 days of NPO status 2) Pt diet to advance 3) F/U in 2-3 days Plan discussed with: Other (JACEK Smith) Critical Care Time(min): 35 EB DEJESUS MD Jul 26, 2024 23:39
[2024-07-27] VITALS (108 sets, daily range): BP systolic 85–233; BP diastolic 29–138; PULSE 89–129; RESP 14–51; TEMP 97.5–100.3; O2SAT 67–100
[2024-07-27 01:20] LABS: Gastric Occult Blood Positive (Negative)
[2024-07-27 02:09] LABS: Base Excess 0.8 mmol/L (-2.0-3.0)
[2024-07-27 03:45] LABS: Basophils # (auto) 0.1 10 ^3/uL (0-0.2); Hemoglobin 9.3 g/dL (13.5-17.5); Monocytes # (auto) 1.9 10 ^3/uL (0-1.3); Neutrophils # (auto) 13.3 10 ^3/uL (1.6-8.6); Neutrophils % (auto) 79.3 % (37.0-80.0); Nucleated Red Blood Cells % 0.1 %; Platelet Count (auto) 68 10^3/uL (140-450); White Blood Cell 16.8 10^3/uL (4.4-10.8)
[2024-07-27 03:47] LABS: Basophils % (auto) 0.6 % (0.0-2.0); Eosinophils # (auto) 0.2 10 ^3/uL (0-0.8); Eosinophils % (auto) 1.3 % (0.0-7.0); Hematocrit 28.7 % (41.0-53.0); Lymphocytes # (auto) 1.3 10 ^3/uL (0.4-5.4); Lymphocytes % (auto) 7.7 % (10.0-50.0); Mean Corpuscular Hemoglobin 34.2 pg (28.0-32.0); Mean Corpuscular Hgb Conc. 32.5 g/dL (32.0-36.0); Mean Corpuscular Volume 105.2 fL (80.0-100.0); Monocytes % (auto) 11.1 % (0.0-12.0); Red Blood Cells 2.73 10^6/uL (4.5-5.90); Red Cell Distribution Width 19.9 % (11.8-14.3)
[2024-07-27 04:01] LABS: Potassium 4.8 mmol/L (3.5-5.1); Sodium 139 mmol/L (136-145)
[2024-07-27 04:02] LABS: Anion Gap 18 (5-15); Carbon Dioxide 24 mmol/L (20-31)
[2024-07-27] MEDS: LORazepam 2MG/ML-1ML VIAL IV ONE (04:11)
[2024-07-27 04:13] LABS: BUN/Creatinine Ratio 13.2 (10.0-20.0); Blood Urea Nitrogen 72 mg/dL (9-23); Chloride 97 mmol/L (98-107); Glucose 120 mg/dL (74-106)
--- NOTE | 2024-07-27 04:35 | DVH ---
EXAM: XY CHEST PORTABLE Indication: respiratory failure Technique: Frontal view of the chest. Comparison: XY CHEST PORTABLE on DOS: 07/26/24, XY CHEST XRAY 1 VIEW on DOS: 07/26/24, XY CHEST PORTABL E on DOS: 07/24/24, XY CHEST XRAY 1 VIEW on DOS: 07/22/24, XY CHEST PORTABLE on DOS: 07/20/24, XY CHEST PORTABLE on DOS: 07/26/24 FINDINGS: LUNGS AND PLEURAL SPACES: Mild CHF. Possible small left pleural effusion. No consolidation. No pneu mothorax. HEART: Unremarkable. Mild cardiomegaly. MEDIASTINUM: Unremarkable. Normal mediastinal contour. BONES/JOINTS: Unremarkable. No acute fracture. TUBES, LINES AND DEVICES: Right internal jugular central venous catheter tip in the superior vena ca va. Enteric tube tip projects in appropriate position. OTHER FINDINGS: . IMPRESSION: No significant change compared to prior exam.
[2024-07-27 08:24] LABS: Base Excess -1.5 mmol/L (-2.0-3.0)
--- NOTE | 2024-07-27 09:00 | DVHPN2 ---
Subjective Metabolic encephalopathy Reviewed: Care Plan, H&P, Labs, Medications Changes from previous H/P or p: No Changes General: Per HPI Eyes: No Pain, No Vision change, No Conjunctivae inflammation, No Eyelid inflammation, No Other, No Redness ENT: No Ear pain, No Ear discharge, No Nose pain, No Nose discharge, No Nose congestion, No Mouth pain, No Mouth swelling, No Throat pain, No Throat swelling, No Other Cardiovascular: Chest Pain Respiratory: Cough Gastrointestinal: No Nausea, No Vomiting, No Abdominal Pain, No Diarrhea, No Constipation, No Melena, No Hematochezia, No Other Genitourinary: No Dysuria, No Frequency, No Incontinence, No Hematuria, No Retention, No Other Musculoskeletal: other, leg pain Skin: Other Objective Vitals Vital Signs Date Time Temp Pulse Resp B/P (MAP) Pulse Ox O2 Delivery O2 Flow Rate FiO2 07/27/24 08:05 91 118/48 100 Facial BiPAP Mask 60 07/27/24 07:30 25 07/27/24 06:35 99.0 07/26/24 00:03 3 Intake/Output Intake and Output 07/27/24 07:00 Intake Total 2713.387 ml Output Total 400 ml Balance 2313.387 ml IV Total 2713.387 ml Output Urine Total 0 ml Gastric Drainage Total 400 ml General Appearance: Alert, Cooperative, moderate distress, Other HEENT: PERRLA Lungs: Other (Patient on BiPAP) Cardiovascular: Regular rate, Normal S1, Normal S2 Abdomen: Normal bowel sounds, Soft, No tenderness Musculoskeletal: Other (No motor movement) Neuro: Other (Unable to assess) Skin: Wounds (See nurse notes and pictures) Psych/Mental Status: Other (Unable to assess) Medications Current Medications Medications Dose Ordered Sig/Rey Route Start Time Stop Time Status Last Admin Dose Admin Vancomycin HCl 0 ml @ 0 mls/hr UD IV 07/08/24 17:00 Sodium Chloride 10 ml Q8HR IV 07/09/24 06:00 07/27/24 05:29 10 ML Vasopressin 20 units/Sodium Chloride 100 ml @ 9 mls/hr Q11H7M IV 07/09/24 13:15 07/26/24 20:59 9 MLS/HR Norepinephrine Bitartrate 32 mg/ Sodium Chloride 250 ml @ 0.938 mls/ hr Q24H IV 07/09/24 15:30 07/27/24 04:03 14.063 MLS/HR Phenylephrine HCl 80 mg/Sodium Chloride 250 ml @ 7.5 mls/hr Q24H IV 07/09/24 15:45 07/27/24 03:20 33.75 MLS/HR Epinephrine HCl 250 ml @ 7.5 mls/hr Q24H IV 07/09/24 17:00 07/26/24 11:28 7.5 MLS/HR Meropenem 50 ml @ 17 mls/hr Q24H IV 07/13/24 22:00 07/26/24 20:31 17 MLS/HR Albumin Human 50 ml @ 100 mls/hr PRN PRN IV 07/13/24 08:30 Cancel Albumin Human 50 ml @ 50 mls/hr PRN PRN IV 07/13/24 08:20 07/26/24 10:54 50 MLS/HR Enteral Nutritional Formula 1,000 ml 30ML/HR GT 07/13/24 12:00 07/24/24 15:41 1,000 ML Albuterol 2.5 mg Q6HR HHN 07/18/24 18:00 07/27/24 06:19 2.5 MG Ipratropium [place] 0.5 mg Q6HR NEB 07/18/24 18:00 07/27/24 06:19 0.5 MG Hydralazine HCl 10 mg Q4HR PRN IV 07/19/24 15:30 Hold 07/22/24 09:41 10 MG Labetalol HCl 10 mg Q2HPRN PRN IV 07/22/24 11:15 Bacitracin 1 applic DAILY TOP 07/24/24 10:00 07/25/24 10:21 1 APPLIC Amphotericin B Liposome 250 mg/ Dextrose 187.5 ml @ 93.75 mls/ hr DAILY@2100 IV 07/24/24 21:00 07/26/24 20:58 93.75 MLS/HR Acetaminophen 650 mg DAILY@2029 PO 07/24/24 20:30 07/27/24 05:35 650 MG Diphenhydramine HCl 25 mg DAILY@2030 IV 07/24/24 20:30 07/26/24 21:00 25 MG Pantoprazole Sodium 50 ml @ 10 mls/hr Q5H IV 07/26/24 15:15 07/27/24 05:29 10 MLS/HR Amino Acids 0 ml @ 0 mls/hr PER PHARMACY IV 07/26/24 15:30 Diagnostic Test (Pha) 1 strip Q6HR 07/26/24 18:00 07/27/24 05:28 1 STRIP Insulin Human Regular FOLLOW SLIDING SCALE Q6HR SC 07/26/24 18:00 07/27/24 00:40 2 UNITS Dextrose 50 ml UD IV 07/26/24 15:45 Amino Acids/ Electrolytes/ Dextrose 1,000 ml @ 41 mls/hr DAILY@2200 IV 07/26/24 22:00 07/26/24 20:58 41 MLS/HR Epoetin Justus-epbx 10,000 unit MWF@2100 SC 07/28/24 21:00 Laboratory Results Laboratory Tests 07/27/24 03:17 Chemistry Test 07/27/24 03:17 Calcium Level 8.0 mg/dL (8.7-10.4) L Blood Gas Results Test 07/26/24 14:43 07/27/24 02:00 07/27/24 08:20 Arterial Blood pH 7.524 (7.350-7.450) 7.507 (7.350-7.450) 7.466 (7.350-7.450) FiO2 % 40.0 60.0 60.0 Microbiology Microbiology Date/Time Source Procedure Growth Status 07/24/24 18:29 Blood Blood Culture - Preliminary NO GROWTH AFTER 48 HOURS OF INCUBATION. Resulted 07/17/24 15:35 Bronchial Washings Gram Stain - Final Resulted 07/17/24 15:35 Bronchial Washings Respiratory Culture - Preliminary Resulted 07/09/24 19:55 Trachea Gram Stain - Final Complete 07/09/24 19:55 Trachea Respiratory Culture - Final Complete Labs and/or images reviewed: Labs reviewed by me, Image(s) reviewed by me Assessment/Plan Assessment/Plan Impression: -septic shock -right leg cellulitis,? Necrotizing fasciitis -ESRD with hemodialysis, previous nephrectomy -coronary artery disease with previous CABG -dilated cardiomyopathy -acute on chronic systolic and diastolic heart failure with ejection fraction 25% -morbid obesity -hypocoagulable state -thrombocytopenia -hypoalbuminemia Plan: -events: Central line was exchanged as well as arterial line yesterday by myself. White blood cell count improving. CVP noted to be 0. Discussed with primary nurse to address fluid resuscitation with Nephrology. Continue Clinimix and keep NPO given new onset of GI bleed. -Protonix drip -nephrology consultation : Managing ESRD, HD -pulmonary consultation: Continue current BiPAP settings -infectious disease consultation: Continue antimicrobials per their discretion. -wound care right lower extremity -continue current sedation -PUD, DVT prophylaxis -repeat chest x-ray and labs in a.m. Critical care time spent with patient discussing and formulating plan of care: 40 minutes. This does not include time spent performing procedures. This medical document was created using an electronic medical record system with [employer] dictation system. Although this document has been carefully reviewed, there may still be some phonetic and typographical errors. These areas are purely typographical due to imperfections of the software programs, and do not reflect any compromise in the patient's medical care. Plan discussed with: Patient, Other (RN) My Orders Orders - MAYRA CALL MASTER SONAR TECHNICIAN Procedure Category Date Status Time Chest Xray 1 View XY 07/26/24 Resulted 10:22 Abg W/ Co-Ox RT 07/26/24 Logged 14:30 Clinimix Per Pharmacy EV 07/26/24 In Process 15:11 * Gi [facility] [employer] [facility] CONS 07/26/24 Transmitted 15:11 Pantoprazole PHA 07/26/24 In Process 40mg/50ml Ns Ae 15:15 Clinimix Per Pharmacy PHA 07/26/24 In Process 15:30 Glucose Blood PHA 07/26/24 In Process (Accu-Chek Comfort 18:00 Insulin R (Human) PHA 07/26/24 In Process (Insulin R) 18:00 Dextrose 50% Syringe PHA 07/26/24 In Process 15:45 Amino Acid Infusion PHA 07/26/24 In Process In D10w (Clinimix 4. 22:00 Us Guided Vascular US 07/26/24 Logged Access 16:59 Chest Portable XY 07/26/24 Resulted 18:03 Chest Portable XY 07/27/24 Resulted 04:00 D/C Tlc EV 07/26/24 In Process 18:58 Communication Order ORDERS 07/26/24 Transmitted 18:58 Abg W/ Co-Ox RT 07/27/24 Logged 01:51 Abg W/ Co-Ox RT 07/27/24 Logged 07:59 Chest Portable XY 07/27/24 Taken 08:17 Complete Blood Count LAB 07/28/24 Verified 04:00 Date of Service: Jul 27, 2024 Billing Provider: MAYRA CALL NP Common Visit Codes: [id number] CARE 30-74 MIN MAYRA CALL NP Jul 27, 2024 09:00
--- NOTE | 2024-07-27 09:02 | DVH ---
XY CHEST PORTABLE, HISTORY: increased work of breathing COMPARISON: XY CHEST PORTABLE on DOS: 07/27/24, XY CHEST PORTABLE on DOS: 07/26/24, XY CHEST XRAY 1 VIE W on DOS: 07/26/24 XY CHEST PORTABLE on DOS: 07/27/24, XY CHEST PORTABLE on DOS: 07/26/24, XY CHEST XRAY 1 VIEW on DOS: TECHNICAL DATA: 1 view of the chest was obtained. FINDINGS: Lines and tubes: NG in the stomach. Right CVC in the RA. Cardiomediastinal silhouette: enlarged Pulmonary vasculature: prominent Lung expansion: low Lung airspace: left basilar consolidation Lung interstitium: normal Pleura: small left effusion Pneumothorax: no Bones: Unremarkable Other: no IMPRESSION: Cardiomegaly with pulmonary congestion. Left basilar consolidation with small effusion.
--- NOTE | 2024-07-27 10:31 | DVHPN2 ---
Progress Note - Dictate Date Seen: Jul 27, 2024 Has the PT tested + for MRSA If YES, has PT been informed?: No Medical Necessity Reason Pt with a Central, PICC or Fol: Yes The following are medically ne: Central Line Subjective Mr. Daniel altered gentleman with a history of hypertension, dyslipidemia, coronary artery disease, kidney cancer status post nephrectomy, kidney failure on hemodialysis, the patient was brought to the [facility]. I have seen and examined the patient, I have discussed with his nurse, he was not doing well, on BiPAP, he was awake, father a little bit, but he is very weak Neosyn 180mcg/min, vasoprissin 0.02 units/min, Levo 30 mcg/min Blood culture, 07/08/2024: E coli HIV & II Ab, 07/10/24: Negative ABG, 07/09/2024: Metabolic acidosis, 07/10/2024: Metabolic acidosis, WBC/HB/PLT/MCV, 07/19/2024: 13.1/9.6/65/105.9 PT/INR/PTT, 07/11/2024: 35.6/3.63/38.4, 07/08/2024: 17.4/1.73/34.2 BUN/CR, 07/09/2024: 59/3.03 07/19/2024: 78/4.54 07/20/2024: 92/5.37 Lactic acid, 07/08/2019 5:3.1, 07/09/2024: 9.6, 07/10/24: 15.5, 07/11/2024: 449, 12.2 HGB A1c, : 3.8 CPK 07/08/2019 5:114, 07/19/2024: 1579 TBI/AST/ALT/AP, once the 925, 0.6/244/561/105, 07/09/2024: 1.1/306/563/101, 07/19/2024: 12/212/261/138 Hepatitis panel, : Negative TG/HDL/LDL/HDL, 07/10/2024: 364/60/5/<5 Vitamin B12, 07/19/2024: >4000 Folic acid 07/19/2024: 9.12 TSH, 07/10/2024: 0.33 EEG 07/19/2024: inadequate but likely mildly abnormal EEG Chest x-ray, 07/08/2024: Bronchovascular crowding. Underlying mild pulmonary vascular congestion can not be excluded Obscuration of the left hemidiaphragm which may be from overlying cardiac silhouette with underlying pleural effusion /atelectasis / pneumonia not excluded. Chest x-ray, 07/09/2024: 1. Left lower lobe opacity may reflect atelectasis or mild pneumonia. 2. Mild interstitial pulmonary edema. 3. Small left pleural effusion. 4. Lines and tubes as above (Endotracheal tube terminates 1.8 cm above the quin) Chest x-ray, 07/17/2024: Endotracheal tube terminates 4.8 cm from the quin. Enteric tube is overlying the plane of the stomach Chest x-ray, 07/27/2024: Cardiomegaly with pulmonary congestion. Left basilar consolidation with small effusion CT head, 07/19/2024: Atrophy. No acute intracranial pathology vital signs Vital Sign Date Time Temp Pulse Resp B/P (MAP) Pulse Ox O2 Delivery O2 Flow Rate FiO2 07/27/24 10:25 105/44 07/27/24 10:00 96 07/27/24 09:43 92 Facial BiPAP Mask 55 07/27/24 08:00 25 07/27/24 06:35 99.0 07/26/24 00:03 3 Total Intake and Output 07/26/24 07/26/24 07/27/24 15:00 23:00 07:00 Intake Total 832.629 ml 1069.254 ml 916.317 ml Output Total 300 ml 100 ml Balance 832.629 ml 769.254 ml 816.317 ml medications Current Medications Medications Dose Ordered Sig/Rey Route Start Time Stop Time Status Last Admin Dose Admin Vancomycin HCl 0 ml @ 0 mls/hr UD IV 07/08/24 17:00 Sodium Chloride 10 ml Q8HR IV 07/09/24 06:00 07/27/24 05:29 10 ML Vasopressin 20 units/Sodium Chloride 100 ml @ 9 mls/hr Q11H7M IV 07/09/24 13:15 07/26/24 20:59 9 MLS/HR Norepinephrine Bitartrate 32 mg/ Sodium Chloride 250 ml @ 0.938 mls/ hr Q24H IV 07/09/24 15:30 07/27/24 04:03 14.063 MLS/HR Phenylephrine HCl 80 mg/Sodium Chloride 250 ml @ 7.5 mls/hr Q24H IV 07/09/24 15:45 07/27/24 10:18 33.75 MLS/HR Epinephrine HCl 250 ml @ 7.5 mls/hr Q24H IV 07/09/24 17:00 07/26/24 11:28 7.5 MLS/HR Meropenem 50 ml @ 17 mls/hr Q24H IV 07/13/24 22:00 07/26/24 20:31 17 MLS/HR Albumin Human 50 ml @ 100 mls/hr PRN PRN IV 07/13/24 08:30 Cancel Albumin Human 50 ml @ 50 mls/hr PRN PRN IV 07/13/24 08:20 07/26/24 10:54 50 MLS/HR Enteral Nutritional Formula 1,000 ml 30ML/HR GT 07/13/24 12:00 07/24/24 15:41 1,000 ML Albuterol 2.5 mg Q6HR HHN 07/18/24 18:00 07/27/24 06:19 2.5 MG Ipratropium [place] 0.5 mg Q6HR NEB 07/18/24 18:00 07/27/24 06:19 0.5 MG Hydralazine HCl 10 mg Q4HR PRN IV 07/19/24 15:30 Hold 07/22/24 09:41 10 MG Labetalol HCl 10 mg Q2HPRN PRN IV 07/22/24 11:15 Bacitracin 1 applic DAILY TOP 07/24/24 10:00 07/25/24 10:21 1 APPLIC Amphotericin B Liposome 250 mg/ Dextrose 187.5 ml @ 93.75 mls/ hr DAILY@2100 IV 07/24/24 21:00 07/26/24 20:58 93.75 MLS/HR Acetaminophen 650 mg DAILY@2030 PO 07/24/24 20:30 07/27/24 05:35 650 MG Diphenhydramine HCl 25 mg DAILY@2030 IV 07/24/24 20:30 07/26/24 21:00 25 MG Pantoprazole Sodium 50 ml @ 10 mls/hr Q5H IV 07/26/24 15:15 07/27/24 05:29 10 MLS/HR Amino Acids 0 ml @ 0 mls/hr PER PHARMACY IV 07/26/24 15:30 Diagnostic Test (Pha) 1 strip Q6HR 07/26/24 18:00 07/27/24 05:28 1 STRIP Insulin Human Regular FOLLOW SLIDING SCALE Q6HR SC 07/26/24 18:00 07/27/24 00:40 2 UNITS Dextrose 50 ml UD IV 07/26/24 15:45 Amino Acids/ Electrolytes/ Dextrose 1,000 ml @ 41 mls/hr DAILY@2200 IV 07/26/24 22:00 07/26/24 20:58 41 MLS/HR Epoetin Justus-epbx 10,000 unit MWF@2100 SC 07/28/24 21:00 objective General: the patient is well developed and nourished. MENTAL STATUS: Subjective SPEECH, LANGUAGE, HIGHER CORTICAL FUNCTION: Subjective CRANIAL NERVES: Pupils are equal, round and reactive. EOMs full and conjugate.Facial sensation intact in all three divisions bilaterally. Mandibular strength intact. Facial muscles symmetrical and strength intact. SENSATION: Sensation to touch and pinprick is ok MOTOR: Normal tone in the upper and lower extremity. Normal muscle bulk. No fasciculations. No abnormal movements or posturing. Moves extremities a little bit REFLEXES: Deep tendon reflexes are symmetrical. No pathological reflexes. CEREBELLAR/COORDINATION: Deferred GAIT/STATION: deferred laboratory and microbiology Laboratory Tests 07/27/24 03:17 Test 07/27/24 03:17 Range/Units Serum Glucose 120 H 74-106 mg/dL Problem List Altered mental status, improving Metabolic encephalopathy Hypoxic encephalopathy Toxic encephalopathy Hepatic encephalopathy Respiratory failure Sepsis/septic shock Pneumonia Cellulitis Metabolic acidosis Coagulopathy Elevated liver function test Thrombocytopenia Macrocytic anemia Elevated liver function tests ICU myopathy Deteriorating Assessment/Plan Monitoring Supportive treatment ICU care MR brain scan later Stabilize vitals/pressor drip Respiratory support/BiPAP Oxygen Antibiotics GI prophylaxis/pantoprazole Infectious disease on case Pulmonary on case Cardiology on case Nephrology on case More recommendation per clinical course This medical document was created using an electronic medical record system with [employer] dictation system. Although this document has been carefully reviewed, there may still be some phonetic and typographical errors. These areas are purely typographical due to imperfections of the software programs, and do not reflect any compromise in the patient's medical care Prognosis poor Dietary Evaluation Review Comments: 1) If GI is accessible consider Nepro 1.8 @ 20 ml/hr with current rate of propofol on board 2) If pt remains NPO >7days of NPO status, provide TPN to meet at least 75% of estimated needs 3) Advance pt diet when medically feasible to a Renal Standard diet modified per RN MANAGER recommendations Expected Outcomes/Goals: 1) Pt to receive nutrition support within 7 days of NPO status 2) Pt diet to advance 3) F/U in 2-3 days Plan discussed with: Other Critical Care Time(min): 35 SUMIT SANTAMARIA MD Jul 27, 2024 10:31
--- NOTE | 2024-07-27 11:13 | DVHPN2 ---
Progress Note Date Seen: Jul 27, 2024 Has the PT tested + for MRSA If YES, has PT been informed?: No Medical Necessity Reason Pt with a Central, PICC or Fol: Yes The following are medically ne: Central Line Subjective Patient reports: Feels worse Review of Systems: RESPIRATORY:Abnormal Objective vital signs Vital Sign Date Time Temp Pulse Resp B/P (MAP) Pulse Ox O2 Delivery O2 Flow Rate FiO2 07/27/24 10:30 97 21 109/46 (67) 95 07/27/24 10:00 Bi-Pap+ 55 55 07/27/24 06:35 99.0 07/26/24 00:03 3 Total Intake and Output 07/26/24 07/26/24 07/27/24 15:00 23:00 07:00 Intake Total 832.629 ml 1069.254 ml 916.317 ml Output Total 300 ml 100 ml Balance 832.629 ml 769.254 ml 816.317 ml medications Current Medications Medications Dose Ordered Sig/Rey Route Start Time Stop Time Status Last Admin Dose Admin Vancomycin HCl 0 ml @ 0 mls/hr UD IV 07/08/24 17:00 Sodium Chloride 10 ml Q8HR IV 07/09/24 06:00 07/27/24 05:29 10 ML Vasopressin 20 units/Sodium Chloride 100 ml @ 9 mls/hr Q11H7M IV 07/09/24 13:15 07/26/24 20:59 9 MLS/HR Norepinephrine Bitartrate 32 mg/ Sodium Chloride 250 ml @ 0.938 mls/ hr Q24H IV 07/09/24 15:30 07/27/24 04:03 14.063 MLS/HR Phenylephrine HCl 80 mg/Sodium Chloride 250 ml @ 7.5 mls/hr Q24H IV 07/09/24 15:45 07/27/24 10:18 33.75 MLS/HR Epinephrine HCl 250 ml @ 7.5 mls/hr Q24H IV 07/09/24 17:00 07/26/24 11:28 7.5 MLS/HR Meropenem 50 ml @ 17 mls/hr Q24H IV 07/13/24 22:00 07/26/24 20:31 17 MLS/HR Albumin Human 50 ml @ 100 mls/hr PRN PRN IV 07/13/24 08:30 Cancel Albumin Human 50 ml @ 50 mls/hr PRN PRN IV 07/13/24 08:20 07/26/24 10:54 50 MLS/HR Enteral Nutritional Formula 1,000 ml 30ML/HR GT 07/13/24 12:00 07/24/24 15:41 1,000 ML Albuterol 2.5 mg Q6HR HHN 07/18/24 18:00 07/27/24 06:19 2.5 MG Ipratropium [place] 0.5 mg Q6HR NEB 07/18/24 18:00 07/27/24 06:19 0.5 MG Hydralazine HCl 10 mg Q4HR PRN IV 07/19/24 15:30 Hold 07/22/24 09:41 10 MG Labetalol HCl 10 mg Q2HPRN PRN IV 07/22/24 11:15 Bacitracin 1 applic DAILY TOP 07/24/24 10:00 07/25/24 10:21 1 APPLIC Amphotericin B Liposome 250 mg/ Dextrose 187.5 ml @ 93.75 mls/ hr DAILY@2100 IV 07/24/24 21:00 07/26/24 20:58 93.75 MLS/HR Acetaminophen 650 mg DAILY@2030 PO 07/24/24 20:30 07/27/24 05:35 650 MG Diphenhydramine HCl 25 mg DAILY@2030 IV 07/24/24 20:30 07/26/24 21:00 25 MG Pantoprazole Sodium 50 ml @ 10 mls/hr Q5H IV 07/26/24 15:15 07/27/24 05:29 10 MLS/HR Amino Acids 0 ml @ 0 mls/hr PER PHARMACY IV 07/26/24 15:30 Diagnostic Test (Pha) 1 strip Q6HR 07/26/24 18:00 07/27/24 05:28 1 STRIP Insulin Human Regular FOLLOW SLIDING SCALE Q6HR SC 07/26/24 18:00 07/27/24 00:40 2 UNITS Dextrose 50 ml UD IV 07/26/24 15:45 Amino Acids/ Electrolytes/ Dextrose 1,000 ml @ 41 mls/hr DAILY@2200 IV 07/26/24 22:00 07/26/24 20:58 41 MLS/HR Epoetin Justus-epbx 10,000 unit MWF@2100 SC 07/28/24 21:00 Examination: GENERAL:Abnormal, LUNGS:Abnormal, ABDOMEN:Abnormal laboratory and microbiology Laboratory Tests 07/27/24 03:17 Test 07/27/24 03:17 Range/Units Serum Glucose 120 H 74-106 mg/dL Microbiology Date/Time Source Procedure Growth Status 07/24/24 18:29 Blood Blood Culture - Preliminary NO GROWTH AFTER 48 HOURS OF INCUBATION. Resulted 07/17/24 15:35 Bronchial Washings Gram Stain - Final Resulted 07/17/24 15:35 Bronchial Washings Respiratory Culture - Preliminary Resulted 07/09/24 19:55 Trachea Gram Stain - Final Complete 07/09/24 19:55 Trachea Respiratory Culture - Final Complete Problem List/Assessment/Plan Problem List/Assessment/Plan ESRD on HD uremic acidosis / lactic acidosis septic shock with gram-negative anabella bacteremia fungal infection lower extremity wound anemia hypoglycemia hyperkalemia Dialysis will be assessed on dialysis basis lines replaced yesterday remains hypotensive on multiple pressors CVP low currently IVF is 100cc/hr continue curently on bipap, low threshold to rtintubate pressors to keep MAP > 65 fluid removal as tolerated Ecoli bacteremia on merrem ABX clinically unstable, prognosis is poor case discussed w/ ICU team Plan discussed with: Patient My Orders My Orders Orders - LULU RICHARD MD Procedure Category Date Status Time Blood Culture CIELO 07/26/24 In Process 11:40 Respiratory Culture CIELO 07/26/24 Logged W/ Gs 11:40 Epoetin Justus-Epbx PHA 07/28/24 In Process (Retacrit) 21:00 Dietary Evaluation Review Comments: 1) If GI is accessible consider Nepro 1.8 @ 20 ml/hr with current rate of propofol on board 2) If pt remains NPO >7days of NPO status, provide TPN to meet at least 75% of estimated needs 3) Advance pt diet when medically feasible to a Renal Standard diet modified per MEDICINE TECHNOLOGIST recommendations Expected Outcomes/Goals: 1) Pt to receive nutrition support within 7 days of NPO status 2) Pt diet to advance 3) F/U in 2-3 days LULU RICHARD MD Jul 27, 2024 11:13
[2024-07-27 11:48] LABS: Anion Gap 18 (5-15); Carbon Dioxide 22 mmol/L (20-31); Chloride 100 mmol/L (98-107); Magnesium 2.1 mg/dL (1.6-2.6); Potassium 4.9 mmol/L (3.5-5.1); Sodium 140 mmol/L (136-145)
[2024-07-27 11:56] LABS: Alanine Aminotransferase 48 U/L (7-40); Alkaline Phosphatase 207 U/L (46-116); Aspartate Aminotransferase 107 U/L (13-40); Bilirubin, Total 10.1 mg/dL (0.2-1.0); Blood Urea Nitrogen 73 mg/dL (9-23); Calcium 7.7 mg/dL (8.7-10.4); Glucose 114 mg/dL (74-106); Phosphorus 5.9 mg/dL (2.4-5.1); Total Protein 5.6 g/dL (5.7-8.2)
[2024-07-27 12:34] LABS: BUN/Creatinine Ratio 13.2 (10.0-20.0)
[2024-07-27 14:39] LABS: Lactic Acid w/Reflex 2.4 mmol/L (0.4-2.0)
[2024-07-27] MEDS: ROCURONIUM 10MG/ML 10ML VIAL IV ONE ×2 (15:15→15:18)
[2024-07-27] MEDS: MIDAZOLAM DRIP 50 mg/50mL 50 ML IV SCH (15:15)
[2024-07-27] MEDS: fentaNYL Drip 2500mCg/250mlNS 250 ML IV SCH (15:15)
[2024-07-27] MEDS: ETOMIDATE (2MG/ML) 20ML VIAL IV ONE ×2 (15:18→16:12)
[2024-07-27 17:00] LABS: Base Excess -3.5 mmol/L (-2.0-3.0)
--- NOTE | 2024-07-27 18:07 | DVH ---
EXAM: XY CHEST PORTABLE TECHNIQUE: Single frontal chest radiograph CLINICAL HISTORY: REINTUBATED COMPARISON: XY CHEST PORTABLE on DOS: 07/27/24, XY CHEST PORTABLE on DOS: 07/27/24, XY CHEST PORTABLE o n DOS: 07/26/24 Findings/Impression: Frontal chest radiograph demonstrates no acute osseous or superficial soft tissue abnormalities. Endotracheal tube terminates 5.2 cm frmo the quin. Enteric tube is descending down into the stomach with the distal tip not visualized. Right sided IJ catheter terminates in the right atrium. The trachea is midline. Mild cardiomegaly. Pulmonary vascular congestion. Prominent epicardial fat pad versus small left pleural effusion. No pneumothorax.
--- NOTE | 2024-07-27 18:36 | DVHNC2 ---
Procedure - Procedure: Endotracheal Intubation INDICATION: Acute hypoxic respiratory failure, accessory muscle usage Physician: Eb Bermudez MD CONSENT: Emergent procedure. Implied. Time out time: 1545 pm Patient medications and allergies reviewed. Patient identification and proposed procedure were verified prior to the procedure by the physician, and a nurse in the patient's room. The heart rate, respiratory rate, oxygen saturations, blood pressure, adequacy of pulmonary ventilation, and response to care were monitored throughout the procedure. The physical status of the patient was reassessed after the procedure. PROCEDURE SUMMARY: A time out was performed. My hands were washed immediately prior to the procedure. I wore a surgical cap, mask with protective eyewear, gown and gloves throughout the procedure. The patient was placed on a quality assurance monitor body including continuous pulse oximetry. The patient received 16 mg Etomidate and 50 mg rocuronium for induction. Cricoid pressure was maintained from time induction agent was given to time of cuff balloon inflation. Using a MAC 4 Mary LaryngoScope and a size 8.0 endotracheal tube with stylet, the patient was intubated on the 1 attempt. The stylet was removed and cuff balloon was inflated. Appropriate endotracheal tube position was confirmed by direct visualization of vocal cord passage, fogging of the tube, CO2 colorimetric indicator and symmetric breath sounds. The tube was secured at 23 cm at the lips. Post intubation chest x-ray is demonstrates the ETT between 5 cm above the quin. CPT Code: 82883 EB BERMUDEZ MD Jul 27, 2024 18:36
--- NOTE | 2024-07-27 18:38 | DVHNC2 ---
Procedure - Bronchoscopy procedure note: Indications: Suspected aspiration, Possible mucous plugging. Medicines: See GEOPHYSICAL DATA TECHNICIAN notes. Complications: None Time out: 1555 pm Procedure: Patient medications and allergies reviewed. The risks and benefits of the procedure and the sedation options and risk were discussed with the patient's healthcare proxy. All questions were answered and informed consent was obtained. Patient identification and proposed procedure were verified prior to the procedure by the physician, and a nurse, and the respiratory therapist in ICU room. The heart rate, respiratory rate, oxygen saturations, blood pressure, adequacy of pulmonary ventilation, and response to care were monitored throughout the procedure. The physical status of the patient was reassessed after the procedure. After obtaining informed consent, the bronchoscope was introduced through the endotracheal tube and advanced into the trachea bronchial tree of both lungs. The procedure was accomplished without difficulty. The patient tolerated the procedure well. Findings: The trachea is in normal caliber. The quin is sharp. The tracheobronchial tree of the right lung was examined to at least the first subsegmental level. The bronchial mucosa and anatomy in the right lung are normal, except narrowing of RML bronchus. There are no endobronchial lesions. There was copious whitish secretions from right main stem bronchus onward throughout R1-R3 and R6-R10. Right upper lobe (RML) Bronchoalveolar lavage (BAL) obtained. RUL BAL sent for gram stain and culture. The left upper lobe, lingula, and left lower lobe were examined to at least the first subsegmental level. Bronchial mucosa and anatomy in the left upper lobe and lingula are normal. There were no endobronchial lesions. There was copious whitish secretions from left main stem bronchus onward throughout L1-L10. Mucous plugging removed from L1-L10. There was no active bleeding at the completion of the procedure. Estimated blood loss: Less than 5 mL. Impression: Left lower lobe atelectasis due to mucous plugging Mucous plugging from L1-L10 and R1-R3 and R6-R10 RUL BAL performed Recommendation: Follow-up RUL BAL results. Procedure codes: 61067, bronchoscopy, rigid and flexible, including fluoroscopic guidance, one performed; with bronchial endobronchial broncho-alveolar lavage, single or multiple sites EB DEJESUS MD Jul 27, 2024 18:38
--- NOTE | 2024-07-27 19:22 | DVHPN2 ---
Progress Note - Dictate Date Seen: Jul 27, 2024 Has the PT tested + for MRSA If YES, has PT been informed?: No Medical Necessity Reason Pt with a Central, PICC or Fol: Yes The following are medically ne: Central Line Subjective Patient was seen and evaluated in follow up in the ICU. Patient was intubated for airway protection this evening. Patient underwent bronchoscopy with Dr. Bermudez. Left lower lobe atelectasis due to mucous plugging, mucous plugging from L1-L10 and R1-R3 and R6-R10, RUL BAL performed. WBC 16, HGB 9.3, HCT 28.7, LA 2.4, BUN 73, SENIOR PATROL AGENT 5.53. vital signs Vital Sign Date Time Temp Pulse Resp B/P (MAP) Pulse Ox O2 Delivery O2 Flow Rate FiO2 07/27/24 18:22 110 25 109/48 (68) 100 50 07/27/24 18:00 Mechanical Ventilator+ 07/27/24 17:00 99.3 99.3 07/26/24 00:03 3 Total Intake and Output 07/26/24 07/26/24 07/27/24 15:00 23:00 07:00 Intake Total 832.629 ml 1069.254 ml 930.377 ml Output Total 300 ml 100 ml Balance 832.629 ml 769.254 ml 830.377 ml medications Current Medications Medications Dose Ordered Sig/Rey Route Start Time Stop Time Status Last Admin Dose Admin Vancomycin HCl 0 ml @ 0 mls/hr UD IV 07/08/24 17:00 Sodium Chloride 10 ml Q8HR IV 07/09/24 06:00 07/27/24 12:30 10 ML Vasopressin 20 units/Sodium Chloride 100 ml @ 9 mls/hr Q11H7M IV 07/09/24 13:15 07/27/24 18:02 9 MLS/HR Norepinephrine Bitartrate 32 mg/ Sodium Chloride 250 ml @ 0.938 mls/ hr Q24H IV 07/09/24 15:30 07/27/24 18:03 14.063 MLS/HR Phenylephrine HCl 80 mg/Sodium Chloride 250 ml @ 7.5 mls/hr Q24H IV 07/09/24 15:45 07/27/24 18:03 33.75 MLS/HR Epinephrine HCl 250 ml @ 7.5 mls/hr Q24H IV 07/09/24 17:00 07/26/24 11:28 7.5 MLS/HR Meropenem 50 ml @ 17 mls/hr Q24H IV 07/13/24 22:00 07/26/24 20:31 17 MLS/HR Albumin Human 50 ml @ 100 mls/hr PRN PRN IV 07/13/24 08:30 Cancel Albumin Human 50 ml @ 50 mls/hr PRN PRN IV 07/13/24 08:20 07/26/24 10:54 50 MLS/HR Enteral Nutritional Formula 1,000 ml 30ML/HR GT 07/13/24 12:00 07/24/24 15:41 1,000 ML Albuterol 2.5 mg Q6HR HHN 07/18/24 18:00 07/27/24 18:21 2.5 MG Ipratropium [place] 0.5 mg Q6HR NEB 07/18/24 18:00 07/27/24 18:21 0.5 MG Hydralazine HCl 10 mg Q4HR PRN IV 07/19/24 15:30 Hold 07/22/24 09:41 10 MG Labetalol HCl 10 mg Q2HPRN PRN IV 07/22/24 11:15 Bacitracin 1 applic DAILY TOP 07/24/24 10:00 07/25/24 10:21 1 APPLIC Amphotericin B Liposome 250 mg/ Dextrose 187.5 ml @ 93.75 mls/ hr DAILY@2100 IV 07/24/24 21:00 07/26/24 20:58 93.75 MLS/HR Acetaminophen 650 mg DAILY@2029 PO 07/24/24 20:30 07/27/24 05:35 650 MG Diphenhydramine HCl 25 mg DAILY@2029 IV 07/24/24 20:30 07/26/24 21:00 25 MG Pantoprazole Sodium 50 ml @ 10 mls/hr Q5H IV 07/26/24 15:15 07/27/24 16:37 10 MLS/HR Amino Acids 0 ml @ 0 mls/hr PER PHARMACY IV 07/26/24 15:30 Diagnostic Test (Pha) 1 strip Q6HR 07/26/24 18:00 07/27/24 17:58 1 STRIP Insulin Human Regular FOLLOW SLIDING SCALE Q6HR SC 07/26/24 18:00 07/27/24 00:40 2 UNITS Dextrose 50 ml UD IV 07/26/24 15:45 Amino Acids/ Electrolytes/ Dextrose 1,000 ml @ 41 mls/hr DAILY@2200 IV 07/26/24 22:00 07/26/24 20:58 41 MLS/HR Epoetin Justus-epbx 10,000 unit MWF@2100 MS 07/28/24 21:00 Midazolam HCl 50 ml @ 1 mls/hr Q24H IV 07/27/24 15:15 07/27/24 15:15 3 MLS/HR Fentanyl Citrate 250 ml @ 2.5 mls/hr Q24H IV 07/27/24 15:15 07/27/24 15:15 2.5 MLS/HR objective GENERAL: Intubated on ventilator. Morbidly obese. LUNGS: Decreased breath sounds. CARDIOVASCULAR: Heart sounds are good. ABDOMEN: Soft. EXT: BLE edema. laboratory and microbiology Laboratory Tests 07/27/24 03:17 Test 07/27/24 03:17 Range/Units Serum Glucose 114 H 74-106 mg/dL Problem List Hypotension secondary to septic shock. Coronary artery disease status post CABG in 2021. History of hypertension. Hyperlipidemia. Hyperkalemia. Acute anemia. Thrombocytopenia. Transaminitis. End-stage renal disease on hemodialysis. Renal cell carcinoma status post left nephrectomy. COPD. Asthma. Morbid obesity. Dilated cardiomyopathy. Metabolic encephalopathy. Assessment/Plan Continued all current supportive medical care. GI prophylactics. IV antibiotics as ordered. Vasopressors for hemodynamic support. Additional plan as per the hospital course. Critical care time of 45 minutes provided to include time spent evaluation of patient at bedside, when appropriate patient/family education for diagnosis, treatment plan, review of pertinent medical information and discussion of care with specialty providers and PCP. Mechanical ventilator parameters, treatment and adjustments have personally been reviewed by me and treatment plan by plastic process technician has also been reviewed. Dietary Evaluation Review Comments: 1) If GI is accessible consider Nepro 1.8 @ 20 ml/hr with current rate of propofol on board 2) If pt remains NPO >7days of NPO status, provide TPN to meet at least 75% of estimated needs 3) Advance pt diet when medically feasible to a Renal Standard diet modified per PUBLIC RELATIONS COUNSELOR recommendations Expected Outcomes/Goals: 1) Pt to receive nutrition support within 7 days of NPO status 2) Pt diet to advance 3) F/U in 2-3 days Plan discussed with: Other FRIDA SIMMONS MD Jul 27, 2024 19:21
--- NOTE | 2024-07-27 22:01 | DVHPN2 ---
Progress Note - Dictate Date Seen: Jul 27, 2024 Has the PT tested + for MRSA If YES, has PT been informed?: No Medical Necessity Reason Pt with a Central, PICC or Fol: Yes The following are medically ne: Central Line Subjective Patient seen at bedside He required to be intubated again this afternoon Leukocytosis is improving H&H is stable, liver enzymes are trending down and lactic acid is normalized NG tube output is minimal with the old bile mixed with some blood but no active bleeding Patient had a bowel movement today which also did not show any significant amount of bleeding but there may have been some old dark stools vital signs Vital Sign Date Time Temp Pulse Resp B/P (MAP) Pulse Ox O2 Delivery O2 Flow Rate FiO2 07/27/24 21:17 110 25 109/48 100 50 07/27/24 18:00 Mechanical Ventilator+ 07/27/24 17:00 99.3 99.3 07/26/24 00:03 3 Total Intake and Output 07/26/24 07/26/24 07/27/24 15:00 23:00 07:00 Intake Total 832.629 ml 1069.254 ml 930.377 ml Output Total 300 ml 100 ml Balance 832.629 ml 769.254 ml 830.377 ml medications Current Medications Medications Dose Ordered Sig/Rey Route Start Time Stop Time Status Last Admin Dose Admin Vancomycin HCl 0 ml @ 0 mls/hr UD IV 07/08/24 17:00 Sodium Chloride 10 ml Q8HR IV 07/09/24 06:00 07/27/24 12:30 10 ML Vasopressin 20 units/Sodium Chloride 100 ml @ 9 mls/hr Q11H7M IV 07/09/24 13:15 07/27/24 18:02 9 MLS/HR Norepinephrine Bitartrate 32 mg/ Sodium Chloride 250 ml @ 0.938 mls/ hr Q24H IV 07/09/24 15:30 07/27/24 18:03 14.063 MLS/HR Phenylephrine HCl 80 mg/Sodium Chloride 250 ml @ 7.5 mls/hr Q24H IV 07/09/24 15:45 07/27/24 18:03 33.75 MLS/HR Epinephrine HCl 250 ml @ 7.5 mls/hr Q24H IV 07/09/24 17:00 07/26/24 11:28 7.5 MLS/HR Meropenem 50 ml @ 17 mls/hr Q24H IV 07/13/24 22:00 07/26/24 20:31 17 MLS/HR Albumin Human 50 ml @ 100 mls/hr PRN PRN IV 07/13/24 08:30 Cancel Albumin Human 50 ml @ 50 mls/hr PRN PRN IV 07/13/24 08:20 07/26/24 10:54 50 MLS/HR Enteral Nutritional Formula 1,000 ml 30ML/HR GT 07/13/24 12:00 07/24/24 15:41 1,000 ML Albuterol 2.5 mg Q6HR HHN 07/18/24 18:00 07/27/24 18:21 2.5 MG Ipratropium [place] 0.5 mg Q6HR NEB 07/18/24 18:00 07/27/24 18:21 0.5 MG Hydralazine HCl 10 mg Q4HR PRN IV 07/19/24 15:30 Hold 07/22/24 09:41 10 MG Labetalol HCl 10 mg Q2HPRN PRN IV 07/22/24 11:15 Bacitracin 1 applic DAILY TOP 07/24/24 10:00 07/25/24 10:21 1 APPLIC Amphotericin B Liposome 250 mg/ Dextrose 187.5 ml @ 93.75 mls/ hr DAILY@2100 IV 07/24/24 21:00 07/27/24 21:00 93.75 MLS/HR Acetaminophen 650 mg DAILY@2030 PO 07/24/24 20:30 07/27/24 05:35 650 MG Diphenhydramine HCl 25 mg DAILY@2029 IV 07/24/24 20:30 07/27/24 21:33 25 MG Pantoprazole Sodium 50 ml @ 10 mls/hr Q5H IV 07/26/24 15:15 07/27/24 21:29 10 MLS/HR Amino Acids 0 ml @ 0 mls/hr PER PHARMACY IV 07/26/24 15:30 Diagnostic Test (Pha) 1 strip Q6HR 07/26/24 18:00 07/27/24 17:58 1 STRIP Insulin Human Regular FOLLOW SLIDING SCALE Q6HR SC 07/26/24 18:00 07/27/24 00:40 2 UNITS Dextrose 50 ml UD IV 07/26/24 15:45 Amino Acids/ Electrolytes/ Dextrose 1,000 ml @ 41 mls/hr DAILY@2200 IV 07/26/24 22:00 07/27/24 21:51 41 MLS/HR Epoetin Justus-epbx 10,000 unit MWF@2100 SC 07/28/24 21:00 Midazolam HCl 50 ml @ 1 mls/hr Q24H IV 07/27/24 15:15 07/27/24 15:15 3 MLS/HR Fentanyl Citrate 250 ml @ 2.5 mls/hr Q24H IV 07/27/24 15:15 07/27/24 15:15 2.5 MLS/HR objective GENERAL: Intubated on ventilator. obese. NG output bilious LUNGS: Decreased breath sounds. CARDIOVASCULAR: Heart sounds are good. ABDOMEN: Soft. Nontender EXT: BLE edema. laboratory and microbiology Laboratory Tests 07/27/24 03:17 Test 07/27/24 03:17 Range/Units Serum Glucose 114 H 74-106 mg/dL Problems(with codes): (1) Jaundice (2) Coffee ground emesis (3) Elevated liver enzymes (4) End-stage renal disease on hemodialysis (5) Severe anemia (6) Sepsis, unspecified organism (7) Pneumonia, unspecified organism (8) Generalized weakness Prognosis Plan Coffee-ground emesis Patient at this time does not appeared to be having active GI bleeding, he was reintubated I suspect he has stress-induced gastritis or ulcers Continue IV Protonix drip Continue to monitor labs NG tube to low intermittent suction Transfuse if hemoglobin drops below seven Elevated liver enzymes It appears to have been initiated by hypoxic liver injury or shock liver The liver enzymes are trending down however the cholestasis is dragging Hepatitis profile liver enzymes are negative Continue to monitor labs ; repeat CMP in a.m. Continue supportive care Prognosis remains guarded Dietary Evaluation Review Comments: 1) If GI is accessible consider Nepro 1.8 @ 20 ml/hr with current rate of propofol on board 2) If pt remains NPO >7days of NPO status, provide TPN to meet at least 75% of estimated needs 3) Advance pt diet when medically feasible to a Renal Standard diet modified per EMBEDDED LINUX DEVELOPER recommendations Expected Outcomes/Goals: 1) Pt to receive nutrition support within 7 days of NPO status 2) Pt diet to advance 3) F/U in 2-3 days Plan discussed with: Patient, Other (ICU Nurse ) VIVIANA SHI MD Jul 27, 2024 22:01
--- NOTE | 2024-07-27 23:16 | DVHPN2 ---
Progress Note - Dictate Date Seen: Jul 27, 2024 Has the PT tested + for MRSA If YES, has PT been informed?: No Medical Necessity Reason Pt with a Central, PICC or Fol: Yes The following are medically ne: Central Line Subjective Patient seen and examined at bedside. Sedated, intubated on mechanical ventilator. Overnight events reviewed. vital signs Vital Sign Date Time Temp Pulse Resp B/P (MAP) Pulse Ox O2 Delivery O2 Flow Rate FiO2 07/27/24 22:37 94 24 143/67 (92) 100 50 07/27/24 18:00 Mechanical Ventilator+ 07/27/24 17:00 99.3 99.3 07/26/24 00:03 3 Total Intake and Output 07/26/24 07/26/24 07/27/24 15:00 23:00 07:00 Intake Total 832.629 ml 1069.254 ml 930.377 ml Output Total 300 ml 100 ml Balance 832.629 ml 769.254 ml 830.377 ml medications Current Medications Medications Dose Ordered Sig/Rey Route Start Time Stop Time Status Last Admin Dose Admin Vancomycin HCl 0 ml @ 0 mls/hr UD IV 07/08/24 17:00 Sodium Chloride 10 ml Q8HR IV 07/09/24 06:00 07/27/24 22:00 10 ML Vasopressin 20 units/Sodium Chloride 100 ml @ 9 mls/hr Q11H7M IV 07/09/24 13:15 07/27/24 18:02 9 MLS/HR Norepinephrine Bitartrate 32 mg/ Sodium Chloride 250 ml @ 0.938 mls/ hr Q24H IV 07/09/24 15:30 07/27/24 18:03 14.063 MLS/HR Phenylephrine HCl 80 mg/Sodium Chloride 250 ml @ 7.5 mls/hr Q24H IV 07/09/24 15:45 07/27/24 18:03 33.75 MLS/HR Epinephrine HCl 250 ml @ 7.5 mls/hr Q24H IV 07/09/24 17:00 07/26/24 11:28 7.5 MLS/HR Meropenem 50 ml @ 17 mls/hr Q24H IV 07/13/24 22:00 07/27/24 22:31 17 MLS/HR Albumin Human 50 ml @ 100 mls/hr PRN PRN IV 07/13/24 08:30 Cancel Albumin Human 50 ml @ 50 mls/hr PRN PRN IV 07/13/24 08:20 07/26/24 10:54 50 MLS/HR Enteral Nutritional Formula 1,000 ml 30ML/HR GT 07/13/24 12:00 07/24/24 15:41 1,000 ML Albuterol 2.5 mg Q6HR HHN 07/18/24 18:00 07/27/24 18:21 2.5 MG Ipratropium [place] 0.5 mg Q6HR NEB 07/18/24 18:00 07/27/24 18:21 0.5 MG Hydralazine HCl 10 mg Q4HR PRN IV 07/19/24 15:30 Hold 07/22/24 09:41 10 MG Labetalol HCl 10 mg Q2HPRN PRN IV 07/22/24 11:15 Bacitracin 1 applic DAILY TOP 07/24/24 10:00 07/25/24 10:21 1 APPLIC Amphotericin B Liposome 250 mg/ Dextrose 187.5 ml @ 93.75 mls/ hr DAILY@2100 IV 07/24/24 21:00 07/27/24 21:00 93.75 MLS/HR Acetaminophen 650 mg DAILY@2030 PO 07/24/24 20:30 07/27/24 05:35 650 MG Diphenhydramine HCl 25 mg DAILY@2030 IV 07/24/24 20:30 07/27/24 21:33 25 MG Pantoprazole Sodium 50 ml @ 10 mls/hr Q5H IV 07/26/24 15:15 07/27/24 21:29 10 MLS/HR Amino Acids 0 ml @ 0 mls/hr PER PHARMACY IV 07/26/24 15:30 Diagnostic Test (Pha) 1 strip Q6HR 07/26/24 18:00 07/27/24 17:58 1 STRIP Insulin Human Regular FOLLOW SLIDING SCALE Q6HR SC 07/26/24 18:00 07/27/24 00:40 2 UNITS Dextrose 50 ml UD IV 07/26/24 15:45 Amino Acids/ Electrolytes/ Dextrose 1,000 ml @ 41 mls/hr DAILY@2200 IV 07/26/24 22:00 07/27/24 21:51 41 MLS/HR Epoetin Justus-epbx 10,000 unit MWF@2100 OR 07/28/24 21:00 Midazolam HCl 50 ml @ 1 mls/hr Q24H IV 07/27/24 15:15 07/27/24 22:26 7 MLS/HR Fentanyl Citrate 250 ml @ 2.5 mls/hr Q24H IV 07/27/24 15:15 07/27/24 15:15 2.5 MLS/HR objective Gen.: Patient lying in bed in medical ICU. Sedated, intubated on mechanical ventilator. Head: Normocephalic, atraumatic. Eyes: PERRLA. Ears: Normal external anatomy. Throat: Endotracheal tube and orogastric tube in place. Neck: Supple, trachea midline. Chest: Transmitted breath sounds bilaterally. Decreased air entry bilaterally. No wheezing. Bibasilar crackles. Cardiovascular: Positive S1, positive S2. Regular rate and rhythm. Abdomen: Positive bowel sounds in all 4 quadrants. Soft, nontender, nondistended. : Whiting in place. Normal external genitalia. Rectal: Deferred. Skin: Warm, dry. Intact. Extremities: 2+ radial pulses bilaterally. No lower extremity edema. Neuro: Sedated. laboratory and microbiology Laboratory Tests 07/27/24 03:17 Test 07/27/24 03:17 Range/Units Serum Glucose 114 H 74-106 mg/dL Assessment/Plan Impression: Acute hypoxic respiratory failure On mechanical ventilator Pulmonary edema Necrotizing fasciitis Septic shock Morbid obesity Events: Patient is s/p intubation today Currently on mechanical ventilator; AC mode with RR 24, VT 400, PEEP 8, FiO2 50% Sedated on Versed, Fentanyl. Continue bronchodilators Continue antibiotics On multiple pressors for hemodynamic support On Wojciech-Synephrine 180 mcg/min, Levophed 30 mcg/min and vasopressin 0.03 units/min Titrate to keep MAP above 65 mmHg/SBP above 90 mmHg. Monitor hemodynamics Patient is s/p bronchoscopy today - cleared secretions from RUL/RLL + ASHLEY/lingula/LLL. Follow up GI recs Monitor hemoglobin Clinimix for nutritional support Monitor platelet count Head of bed elevation Aspiration precautions. Monitor WBC Wound care Recommend PT eval. HD per Nephrology Monitor renal function Monitor electrolytes. Supplement as necessary. Nephrology recommendations appreciated U/S Doppler of left upper extremity negative for DVT. 07/17/24 - S/p therapeutic bronchoscopy w/ RLL BAL - cleared mucous plugging from L6-L10 and R6-R10 See separate procedure note for details. Labs and imaging reviewed. Rest of plan as noted below. Plan: s/p intubation On mechanical ventilator; AC mode with RR 24, VT 400, PEEP 8, FiO2 50% Sedated on Versed, Fentanyl. On multiple pressors for hemodynamic support On Wojciech-Synephrine 180 mcg/min, Levophed 30 mcg/min and vasopressin 0.03 units/min Titrate to keep MAP above 65 mmHg/SBP above 90 mmHg. Monitor hemodynamics Continue antibiotics. F/u cultures. Monitor renal function Monitor electrolytes. Supplement as necessary. Monitor ins and outs. GI prophylaxis. DVT prophylaxis. Prognosis: Poor given patient's multiple co-morbidities. Condition: Critical Rest of plan per hospitalist and other consultants. A total of 35 minutes of critical care time was spent reviewing the patient record, examining the patient, making a diagnostic and therapeutic plan, discussing this plan with the medical personnel, following up on diagnostic studies and following the patient for clinical stability excluding any and all procedures. At least 50% of this time was spent in direct, [id number] contact. Thank you Dr. Johnson, for allowing me to participate in this patient's care. Further recommendations will depend on the patient's clinical course. Please do not hesitate to contact me if you have any questions or concerns. This medical document was created using an electronic medical record system with [employer] dictation system. Although these documentations are being carefully reviewed, there may still be some phonetic and typographical changes. The errors are purely typographical, due to imperfection on the software program, and do not reflect any compromise in the patient's medical care. Dietary Evaluation Review Comments: 1) If GI is accessible consider Nepro 1.8 @ 20 ml/hr with current rate of propofol on board 2) If pt remains NPO >7days of NPO status, provide TPN to meet at least 75% of estimated needs 3) Advance pt diet when medically feasible to a Renal Standard diet modified per [employer] recommendations Expected Outcomes/Goals: 1) Pt to receive nutrition support within 7 days of NPO status 2) Pt diet to advance 3) F/U in 2-3 days Plan discussed with: Other (JACEK Robles) Critical Care Time(min): 35 EB DEJESUS MD Jul 27, 2024 23:16
[2024-07-28] VITALS (109 sets, daily range): BP systolic 86–151; BP diastolic 26–68; PULSE 90–118; RESP 11–32; TEMP 98.3–100; O2SAT 94–100
[2024-07-28 04:07] LABS: Basophils # (auto) 0.1 10 ^3/uL (0-0.2); Eosinophils # (auto) 0.4 10 ^3/uL (0-0.8); Eosinophils % (auto) 3.2 % (0.0-7.0); Lymphocytes # (auto) 0.9 10 ^3/uL (0.4-5.4); Monocytes # (auto) 1.4 10 ^3/uL (0-1.3); Monocytes % (auto) 10.3 % (0.0-12.0)
[2024-07-28 04:10] LABS: Basophils % (auto) 0.8 % (0.0-2.0); Hematocrit 24.5 % (41.0-53.0); Lymphocytes % (auto) 6.4 % (10.0-50.0); Mean Corpuscular Hgb Conc. 32.6 g/dL (32.0-36.0); Mean Corpuscular Volume 104.4 fL (80.0-100.0); Neutrophils # (auto) 10.8 10 ^3/uL (1.6-8.6); Neutrophils % (auto) 79.3 % (37.0-80.0); Platelet Count (auto) 44 10^3/uL (140-450); Red Blood Cells 2.35 10^6/uL (4.5-5.90); Red Cell Distribution Width 18.8 % (11.8-14.3); White Blood Cell 13.6 10^3/uL (4.4-10.8)
[2024-07-28 04:21] LABS: Alanine Aminotransferase 33 U/L (7-40); Anion Gap 14 (5-15); BUN/Creatinine Ratio 13.6 (10.0-20.0); Carbon Dioxide 24 mmol/L (20-31); Chloride 99 mmol/L (98-107); Potassium 4.4 mmol/L (3.5-5.1); Sodium 137 mmol/L (136-145)
[2024-07-28 04:28] LABS: Glucose 107 mg/dL (74-106)
[2024-07-28 04:29] LABS: Albumin 2.5 g/dL (3.2-4.8); Alkaline Phosphatase 160 U/L (46-116); Aspartate Aminotransferase 76 U/L (13-40); Bilirubin, Total 8.9 mg/dL (0.2-1.0); Blood Urea Nitrogen 82 mg/dL (9-23); Calcium 7.9 mg/dL (8.7-10.4); Phosphorus 6.4 mg/dL (2.4-5.1); Total Protein 5.1 g/dL (5.7-8.2)
--- NOTE | 2024-07-28 04:55 | DVH ---
CHEST RADIOGRAPH Indication: intubation Technique: Single frontal view of the chest was obtained Comparison: XY CHEST PORTABLE on DOS: 07/27/24 FINDINGS: Lines and Tubes: Right central venous catheter terminates in the right atrium. The enteric tube cours es below the left hemidiaphragm and the tip extends outside the field of view. The endotracheal tube terminates 4.6 cm above the quin. Lungs: There is pulmonary vascular congestion. Pleura: No effusion. No pneumothorax. Cardiomediastinal contours: Stable cardiovascular silhouette. Bones: No acute osseous abnormality. IMPRESSION: 1. Stable position of the support lines and tubes. 2. Stable pulmonary vascular congestion.
[2024-07-28 05:29] LABS: Large Platelets FEW; Macrocytosis Slight; Platelet Estimate Decreased
[2024-07-28 06:47] LABS: Base Excess -1.8 mmol/L (-2.0-3.0)
[2024-07-28] MEDS: SODIUM CHL 0.9% 1000 ML BAG XX ONE (07:00)
[2024-07-28] MEDS: ALBUMIN 25% 100 ML IV ONE ×2 (08:37→09:10)
--- NOTE | 2024-07-28 09:24 | DVHPN2 ---
Subjective Intubated sedated Reviewed: Care Plan, H&P, Labs, Medications Changes from previous H/P or p: No Changes General: Per HPI Eyes: No Pain, No Vision change, No Conjunctivae inflammation, No Eyelid inflammation, No Other, No Redness ENT: No Ear pain, No Ear discharge, No Nose pain, No Nose discharge, No Nose congestion, No Mouth pain, No Mouth swelling, No Throat pain, No Throat swelling, No Other Cardiovascular: Chest Pain Respiratory: Cough Gastrointestinal: No Nausea, No Vomiting, No Abdominal Pain, No Diarrhea, No Constipation, No Melena, No Hematochezia, No Other Genitourinary: No Dysuria, No Frequency, No Incontinence, No Hematuria, No Retention, No Other Musculoskeletal: other, leg pain Skin: Other Objective Vitals Vital Signs Date Time Temp Pulse Resp B/P (MAP) Pulse Ox O2 Delivery O2 Flow Rate FiO2 07/28/24 08:45 97 19 124/52 (76) 100 109/53 (71) 07/28/24 08:15 98.4 98.4 07/28/24 08:00 Mechanical Ventilator+ 40 40 Intake/Output Intake and Output 07/28/24 07:00 Intake Total 3164.511 ml Output Total 0 ml Balance 3164.511 ml Intake Oral 0 ml IV Total 3164.511 ml Output Urine Total 0 ml General Appearance: Alert, Cooperative, moderate distress, Other HEENT: PERRLA Lungs: Other (Patient on BiPAP) Cardiovascular: Regular rate, Normal S1, Normal S2 Abdomen: Normal bowel sounds, Soft, No tenderness Musculoskeletal: Other (No motor movement) Neuro: Other (Unable to assess) Skin: Wounds (See nurse notes and pictures) Psych/Mental Status: Other (Unable to assess) Medications Current Medications Medications Dose Ordered Sig/Rey Route Start Time Stop Time Status Last Admin Dose Admin Vancomycin HCl 0 ml @ 0 mls/hr UD IV 07/08/24 17:00 Sodium Chloride 10 ml Q8HR IV 07/09/24 06:00 07/28/24 06:18 10 ML Vasopressin 20 units/Sodium Chloride 100 ml @ 9 mls/hr Q11H7M IV 07/09/24 13:15 07/27/24 23:45 9 MLS/HR Norepinephrine Bitartrate 32 mg/ Sodium Chloride 250 ml @ 0.938 mls/ hr Q24H IV 07/09/24 15:30 07/28/24 07:52 14.063 MLS/HR Phenylephrine HCl 80 mg/Sodium Chloride 250 ml @ 7.5 mls/hr Q24H IV 07/09/24 15:45 07/28/24 07:52 33.75 MLS/HR Epinephrine HCl 250 ml @ 7.5 mls/hr Q24H IV 07/09/24 17:00 07/26/24 11:28 7.5 MLS/HR Meropenem 50 ml @ 17 mls/hr Q24H IV 07/13/24 22:00 07/27/24 22:31 17 MLS/HR Albumin Human 50 ml @ 100 mls/hr PRN PRN IV 07/13/24 08:30 Cancel Albumin Human 50 ml @ 50 mls/hr PRN PRN IV 07/13/24 08:20 07/28/24 08:10 50 MLS/HR Albuterol 2.5 mg Q6HR HHN 07/18/24 18:00 07/28/24 06:25 2.5 MG Ipratropium [place] 0.5 mg Q6HR NEB 07/18/24 18:00 07/28/24 06:25 0.5 MG Hydralazine HCl 10 mg Q4HR PRN IV 07/19/24 15:30 Hold 07/22/24 09:41 10 MG Labetalol HCl 10 mg Q2HPRN PRN IV 07/22/24 11:15 Bacitracin 1 applic DAILY TOP 07/24/24 10:00 07/25/24 10:21 1 APPLIC Amphotericin B Liposome 250 mg/ Dextrose 187.5 ml @ 93.75 mls/ hr DAILY@2099 IV 07/24/24 21:00 07/27/24 21:00 93.75 MLS/HR Acetaminophen 650 mg DAILY@2029 PO 07/24/24 20:30 07/27/24 05:35 650 MG Diphenhydramine HCl 25 mg DAILY@2029 IV 07/24/24 20:30 07/27/24 21:33 25 MG Diagnostic Test (Pha) 1 strip Q6HR 07/26/24 18:00 07/28/24 06:18 1 STRIP Insulin Human Regular FOLLOW SLIDING SCALE Q6HR SC 07/26/24 18:00 07/27/24 23:59 2 UNITS Dextrose 50 ml UD IV 07/26/24 15:45 Amino Acids/ Electrolytes/ Dextrose 1,000 ml @ 41 mls/hr DAILY@2200 IV 07/26/24 22:00 07/27/24 21:51 41 MLS/HR Epoetin [place]-epbx 10,000 unit MWF@2100 SC 07/28/24 21:00 Midazolam HCl 50 ml @ 1 mls/hr Q24H IV 07/27/24 15:15 07/28/24 07:51 12 MLS/HR Fentanyl Citrate 250 ml @ 2.5 mls/hr Q24H IV 07/27/24 15:15 07/27/24 15:15 2.5 MLS/HR Amino Acids 0 ml @ 0 mls/hr PER PHARMACY IV 07/28/24 09:30 UNV Pantoprazole Sodium 40 mg BID IV 07/28/24 10:00 UNV Laboratory Results Laboratory Tests 07/28/24 03:10 Chemistry Test 07/28/24 03:10 Albumin 2.5 g/dL (3.2-4.8) L Calcium Level 7.9 mg/dL (8.7-10.4) L Magnesium Level 2.0 mg/dL (1.6-2.6) Phosphorus Level 6.4 mg/dL (2.4-5.1) H Total Protein 5.1 g/dL (5.7-8.2) L LFT Test 07/28/24 03:10 Alanine Aminotransferase (ALT) 33 U/L (7-40) Alkaline Phosphatase 160 U/L (46-116) H Aspartate Amino Transferase (AST) 76 U/L (13-40) H Total Bilirubin 8.9 mg/dL (0.2-1.0) H Blood Gas Results Test 07/27/24 16:57 07/28/24 06:40 Arterial Blood pH 7.279 (7.350-7.450) 7.349 (7.350-7.450) FiO2 % 50.0 40.0 Microbiology Microbiology Date/Time Source Procedure Growth Status 07/26/24 14:50 Blood Blood Culture - Preliminary NO GROWTH AFTER 24 HOURS OF INCUBATION. Resulted 07/17/24 15:35 Bronchial Washings Gram Stain - Final Resulted 07/17/24 15:35 Bronchial Washings Respiratory Culture - Preliminary Resulted 07/09/24 19:55 Trachea Gram Stain - Final Complete 07/09/24 19:55 Trachea Respiratory Culture - Final Complete Labs and/or images reviewed: Labs reviewed by me, Image(s) reviewed by me Assessment/Plan Assessment/Plan Impression: -septic shock -right leg cellulitis,? Necrotizing fasciitis -ESRD with hemodialysis, previous nephrectomy -coronary artery disease with previous CABG -dilated cardiomyopathy -acute on chronic systolic and diastolic heart failure with ejection fraction 25% -morbid obesity -hypocoagulable state -thrombocytopenia -hypoalbuminemia Plan: -events: Patient was intubated yesterday. Bronchoscopy performed by welding machine operator. Patient was noted to mucus plugs. Continues to be on vasopressors x3. Currently receiving hemodialysis. Fresh worsening thrombocytopenia. -stop Protonix drip, changed to Protonix 40 mg IV b.i.d. -nephrology consultation : Managing ESRD, HD -pulmonary consultation: Continue current BiPAP settings -infectious disease consultation: Continue antimicrobials per their discretion. -wound care right lower extremity -continue current sedation -PUD, DVT prophylaxis -repeat chest x-ray and labs in a.m. Critical care time spent with patient discussing and formulating plan of care: 40 minutes. This does not include time spent performing procedures. This medical document was created using an electronic medical record system with [employer] dictation system. Although this document has been carefully reviewed, there may still be some phonetic and typographical errors. These areas are purely typographical due to imperfections of the software programs, and do not reflect any compromise in the patient's medical care. Plan discussed with: Patient, Other (RN) My Orders Orders - MAYRA CALL NP Procedure Category Date Status Time Clinimix Per Pharmacy EV 07/27/24 In Process 22:00 Modified Resuscitive CODE 07/28/24 Transmitted Measures Tpn Per Pharmacy PHA 07/28/24 Logged 09:30 Pantoprazole PHA 07/28/24 Logged (Protonix) 10:00 Basic Metabolic Panel LAB 07/29/24 Verified 04:00 Complete Blood Count LAB 07/29/24 Verified 04:00 Date of Service: Jul 28, 2024 Billing Provider: MAYRA CALL NP Common Visit Codes: [id number] CARE 30-74 MIN MAYRA CALL NP Jul 28, 2024 09:24
[2024-07-28] MEDS ORDERED: TPN PER PHARMACY 0 ML IV SCH (09:30)
--- NOTE | 2024-07-28 09:41 | DVHPN2 ---
Progress Note Date Seen: Jul 28, 2024 Has the PT tested + for MRSA If YES, has PT been informed?: No Medical Necessity Reason Pt with a Central, PICC or Fol: Yes The following are medically ne: Central Line Subjective Review of Systems: RESPIRATORY:Abnormal Objective vital signs Vital Sign Date Time Temp Pulse Resp B/P (MAP) Pulse Ox O2 Delivery O2 Flow Rate FiO2 07/28/24 08:45 97 19 124/52 (76) 100 109/53 (71) 07/28/24 08:15 98.4 98.4 07/28/24 08:00 Mechanical Ventilator+ 40 40 Total Intake and Output 07/27/24 07/27/24 07/28/24 15:00 23:00 07:00 Intake Total 862.504 ml 1248.566 ml 1053.441 ml Output Total 0 ml Balance 862.504 ml 1248.566 ml 1053.441 ml medications Current Medications Medications Dose Ordered Sig/Rey Route Start Time Stop Time Status Last Admin Dose Admin Vancomycin HCl 0 ml @ 0 mls/hr UD IV 07/08/24 17:00 Sodium Chloride 10 ml Q8HR IV 07/09/24 06:00 07/28/24 06:18 10 ML Vasopressin 20 units/Sodium Chloride 100 ml @ 9 mls/hr Q11H7M IV 07/09/24 13:15 07/27/24 23:45 9 MLS/HR Norepinephrine Bitartrate 32 mg/ Sodium Chloride 250 ml @ 0.938 mls/ hr Q24H IV 07/09/24 15:30 07/28/24 07:52 14.063 MLS/HR Phenylephrine HCl 80 mg/Sodium Chloride 250 ml @ 7.5 mls/hr Q24H IV 07/09/24 15:45 07/28/24 07:52 33.75 MLS/HR Epinephrine HCl 250 ml @ 7.5 mls/hr Q24H IV 07/09/24 17:00 07/26/24 11:28 7.5 MLS/HR Meropenem 50 ml @ 17 mls/hr Q24H IV 07/13/24 22:00 07/27/24 22:31 17 MLS/HR Albumin Human 50 ml @ 100 mls/hr PRN PRN IV 07/13/24 08:30 Cancel Albumin Human 50 ml @ 50 mls/hr PRN PRN IV 07/13/24 08:20 07/28/24 08:10 50 MLS/HR Albuterol 2.5 mg Q6HR HHN 07/18/24 18:00 07/28/24 06:25 2.5 MG Ipratropium [place] 0.5 mg Q6HR NEB 07/18/24 18:00 07/28/24 06:25 0.5 MG Hydralazine HCl 10 mg Q4HR PRN IV 07/19/24 15:30 Hold 07/22/24 09:41 10 MG Labetalol HCl 10 mg Q2HPRN PRN IV 07/22/24 11:15 Bacitracin 1 applic DAILY TOP 07/24/24 10:00 07/25/24 10:21 1 APPLIC Amphotericin B Liposome 250 mg/ Dextrose 187.5 ml @ 93.75 mls/ hr DAILY@2100 IV 07/24/24 21:00 07/27/24 21:00 93.75 MLS/HR Acetaminophen 650 mg DAILY@2030 PO 07/24/24 20:30 07/27/24 05:35 650 MG Diphenhydramine HCl 25 mg DAILY@2030 IV 07/24/24 20:30 07/27/24 21:33 25 MG Diagnostic Test (Pha) 1 strip Q6HR 07/26/24 18:00 07/28/24 06:18 1 STRIP Insulin Human Regular FOLLOW SLIDING SCALE Q6HR SC 07/26/24 18:00 07/27/24 23:59 2 UNITS Dextrose 50 ml UD IV 07/26/24 15:45 Amino Acids/ Electrolytes/ Dextrose 1,000 ml @ 41 mls/hr DAILY@2200 IV 07/26/24 22:00 07/27/24 21:51 41 MLS/HR Epoetin [place]-epbx 10,000 unit MWF@2100 SC 07/28/24 21:00 Midazolam HCl 50 ml @ 1 mls/hr Q24H IV 07/27/24 15:15 07/28/24 07:51 12 MLS/HR Fentanyl Citrate 250 ml @ 2.5 mls/hr Q24H IV 07/27/24 15:15 07/27/24 15:15 2.5 MLS/HR Amino Acids 0 ml @ 0 mls/hr PER PHARMACY IV 07/28/24 09:30 UNV Pantoprazole Sodium 40 mg BID IV 07/28/24 10:00 UNV Examination: GENERAL:Abnormal, HEENT:Abnormal, NECK:Abnormal, LUNGS:Abnormal laboratory and microbiology Laboratory Tests 07/28/24 03:10 Test 07/28/24 03:10 Range/Units Serum Glucose 107 H 74-106 mg/dL Microbiology Date/Time Source Procedure Growth Status 07/26/24 14:50 Blood Blood Culture - Preliminary NO GROWTH AFTER 24 HOURS OF INCUBATION. Resulted 07/17/24 15:35 Bronchial Washings Gram Stain - Final Resulted 07/17/24 15:35 Bronchial Washings Respiratory Culture - Preliminary Resulted 07/09/24 19:55 Trachea Gram Stain - Final Complete 07/09/24 19:55 Trachea Respiratory Culture - Final Complete Problem List/Assessment/Plan Problem List/Assessment/Plan ESRD on HD acute respiratory failure-> reintubated uremic acidosis / lactic acidosis septic shock with gram-negative anabella bacteremia fungal infection lower extremity wound anemia hypoglycemia hyperkalemia HD treatment, fluid removal as tolerated remains hypotensive on multiple pressors pressors to keep MAP > 65 fluid removal as tolerated Ecoli bacteremia on merrem ABX clinically unstable, prognosis is poor case discussed w/ ICU team Plan discussed with: Other My Orders My Orders Orders - LULU RICHARD MD Procedure Category Date Status Time Hemodialysis Orders ORDERS 07/28/24 Transmitted 07:00 Dialysis Nursing EV 07/28/24 In Process Message 07:00 Document Fluid Input EV 07/28/24 In Process And Outpu 07:00 Dietary Evaluation Review Comments: 1) If GI is accessible consider Nepro 1.8 @ 20 ml/hr with current rate of propofol on board 2) If pt remains NPO >7days of NPO status, provide TPN to meet at least 75% of estimated needs 3) Advance pt diet when medically feasible to a Renal Standard diet modified per STENCILER recommendations Expected Outcomes/Goals: 1) Pt to receive nutrition support within 7 days of NPO status 2) Pt diet to advance 3) F/U in 2-3 days LULU RICHARD MD Jul 28, 2024 09:41
[2024-07-28] MEDS: PANTOPRAZOLE 40 MG/10 ML VIAL INJ IV SCH (10:00)
--- NOTE | 2024-07-28 10:43 | DVHPN2 ---
Progress Note - Dictate Date Seen: Jul 28, 2024 Has the PT tested + for MRSA If YES, has PT been informed?: No Medical Necessity Reason Pt with a Central, PICC or Fol: Yes The following are medically ne: Central Line Subjective Mr. Daniel altered gentleman with a history of hypertension, dyslipidemia, coronary artery disease, kidney cancer status post nephrectomy, kidney failure on hemodialysis, the patient was brought to the [facility]. He was reintubated on 06/26/25 I have seen and examined the patient, I have discussed with his nurse, he was nonresponsive strong painful stimuli Neosyn 180mcg/min, vasoprissin 0.03 units/min, Levo 30 mcg/min, FiO2: 40% Blood culture, 07/08/2024: E coli HIV & II Ab, 07/10/24: Negative ABG, 07/09/2024: Metabolic acidosis, 07/10/2024: Metabolic acidosis, WBC/HB/PLT/MCV, 07/19/2024: 13.1/9.6/65/105.9 PT/INR/PTT, 07/11/2024: 35.6/3.63/38.4, 07/08/2024: 17.4/1.73/34.2 BUN/CR, 07/09/2024: 59/3.03 07/19/2024: 78/4.54 07/20/2024: 92/5.37 Lactic acid, 07/08/2019 5:3.1, 07/09/2024: 9.6, 07/10/24: 15.5, 07/11/2024: 449, 12.2 HGB A1c, : 3.8 CPK 07/08/2019 5:114, 07/19/2024: 1579 TBI/AST/ALT/AP, once the 925, 0.6/244/561/105, 07/09/2024: 1.1/306/563/101, 07/19/2024: 12/212/261/138 Hepatitis panel, : Negative TG/HDL/LDL/HDL, 07/10/2024: 364/60/5/<5 Vitamin B12, 07/19/2024: >4000 Folic acid 07/19/2024: 9.12 TSH, 07/10/2024: 0.33 EEG 07/19/2024: inadequate but likely mildly abnormal EEG Chest x-ray, 07/08/2024: Bronchovascular crowding. Underlying mild pulmonary vascular congestion can not be excluded Obscuration of the left hemidiaphragm which may be from overlying cardiac silhouette with underlying pleural effusion /atelectasis / pneumonia not excluded. Chest x-ray, 07/09/2024: 1. Left lower lobe opacity may reflect atelectasis or mild pneumonia. 2. Mild interstitial pulmonary edema. 3. Small left pleural effusion. 4. Lines and tubes as above (Endotracheal tube terminates 1.8 cm above the quin) Chest x-ray, 07/17/2024: Endotracheal tube terminates 4.8 cm from the quin. Enteric tube is overlying the plane of the stomach Chest x-ray, 07/27/2024: Cardiomegaly with pulmonary congestion. Left basilar consolidation with small effusion CT head, 07/19/2024: Atrophy. No acute intracranial pathology vital signs Vital Sign Date Time Temp Pulse Resp B/P (MAP) Pulse Ox O2 Delivery O2 Flow Rate FiO2 07/28/24 10:06 100 24 107/46 (66) 100 40 07/28/24 09:45 98.4 98.4 07/28/24 08:00 Mechanical Ventilator+ Total Intake and Output 07/27/24 07/27/24 07/28/24 15:00 23:00 07:00 Intake Total 862.504 ml 1248.566 ml 1053.441 ml Output Total 0 ml Balance 862.504 ml 1248.566 ml 1053.441 ml medications Current Medications Medications Dose Ordered Sig/Rey Route Start Time Stop Time Status Last Admin Dose Admin Vancomycin HCl 0 ml @ 0 mls/hr UD IV 07/08/24 17:00 Sodium Chloride 10 ml Q8HR IV 07/09/24 06:00 07/28/24 06:18 10 ML Vasopressin 20 units/Sodium Chloride 100 ml @ 9 mls/hr Q11H7M IV 07/09/24 13:15 07/27/24 23:45 9 MLS/HR Norepinephrine Bitartrate 32 mg/ Sodium Chloride 250 ml @ 0.938 mls/ hr Q24H IV 07/09/24 15:30 07/28/24 07:52 14.063 MLS/HR Phenylephrine HCl 80 mg/Sodium Chloride 250 ml @ 7.5 mls/hr Q24H IV 07/09/24 15:45 07/28/24 07:52 33.75 MLS/HR Epinephrine HCl 250 ml @ 7.5 mls/hr Q24H IV 07/09/24 17:00 07/26/24 11:28 7.5 MLS/HR Meropenem 50 ml @ 17 mls/hr Q24H IV 07/13/24 22:00 07/27/24 22:31 17 MLS/HR Albumin Human 50 ml @ 100 mls/hr PRN PRN IV 07/13/24 08:30 Cancel Albumin Human 50 ml @ 50 mls/hr PRN PRN IV 07/13/24 08:20 07/28/24 08:10 50 MLS/HR Albuterol 2.5 mg Q6HR HHN 07/18/24 18:00 07/28/24 06:25 2.5 MG Ipratropium [place] 0.5 mg Q6HR NEB 07/18/24 18:00 07/28/24 06:25 0.5 MG Hydralazine HCl 10 mg Q4HR PRN IV 07/19/24 15:30 Hold 07/22/24 09:41 10 MG Labetalol HCl 10 mg Q2HPRN PRN IV 07/22/24 11:15 Bacitracin 1 applic DAILY TOP 07/24/24 10:00 07/25/24 10:21 1 APPLIC Amphotericin B Liposome 250 mg/ Dextrose 187.5 ml @ 93.75 mls/ hr DAILY@2100 IV 07/24/24 21:00 07/27/24 21:00 93.75 MLS/HR Acetaminophen 650 mg DAILY@2029 PO 07/24/24 20:30 07/27/24 05:35 650 MG Diphenhydramine HCl 25 mg DAILY@2029 IV 07/24/24 20:30 07/27/24 21:33 25 MG Diagnostic Test (Pha) 1 strip Q6HR 07/26/24 18:00 07/28/24 06:18 1 STRIP Insulin Human Regular FOLLOW SLIDING SCALE Q6HR SC 07/26/24 18:00 07/27/24 23:59 2 UNITS Dextrose 50 ml UD IV 07/26/24 15:45 Amino Acids/ Electrolytes/ Dextrose 1,000 ml @ 41 mls/hr DAILY@2200 IV 07/26/24 22:00 07/28/24 21:59 07/27/24 21:51 41 MLS/HR Epoetin [place]-epbx 10,000 unit MWF@2100 SC 07/28/24 21:00 Midazolam HCl 50 ml @ 1 mls/hr Q24H IV 07/27/24 15:15 07/28/24 07:51 12 MLS/HR Fentanyl Citrate 250 ml @ 2.5 mls/hr Q24H IV 07/27/24 15:15 07/28/24 10:15 15 MLS/HR Amino Acids 0 ml @ 0 mls/hr PER PHARMACY IV 07/28/24 09:30 Pantoprazole Sodium 40 mg BID IV 07/28/24 10:00 Sodium Chloride 10 meq/Sodium Acetate 10 meq/ Multivitamins 10 ml/Amino Acids/ Dextrose 1,017.5 ml @ 43 mls/hr [id number] IV 07/28/24 22:00 07/29/24 21:59 objective The patient is well-nourished and well-developed with no distress. The patient is intubated MENTAL STATUS: Subjective CRANIAL NERVES: Pupils are equal, round and nonreactive, small. There are corneal reflexes and doll's eyes phenomenon. No signs of facial weakness. There are gagging or coughing reflexes SENSATION: No responses to pain stimuli. MOTOR: Normal tone in the upper and lower extremity. Normal muscle bulk. No fasciculations. No spontaneous movement. REFLEXES: Deep tendon reflexes are symmetrical. No pathological reflexes. CEREBELLAR/COORDINATION: Deferred GAIT/STATION: deferred. laboratory and microbiology Laboratory Tests 07/28/24 03:10 Test 07/28/24 03:10 Range/Units Serum Glucose 107 H 74-106 mg/dL Problem List Altered mental status, Metabolic encephalopathy Hypoxic encephalopathy Toxic encephalopathy Hepatic encephalopathy Respiratory failure, reintubated Sepsis/septic shock Pneumonia Cellulitis Metabolic acidosis Coagulopathy Elevated liver function test Thrombocytopenia Macrocytic anemia Elevated liver function tests ICU myopathy Assessment/Plan Monitoring Supportive treatment ICU care MR brain scan later Stabilize vitals/pressor drip Respiratory support/vent management Oxygen Antibiotics GI prophylaxis/pantoprazole Infectious disease on case Pulmonary on case Cardiology on case Nephrology on case More recommendation per clinical course This medical document was created using an electronic medical record system with [employer] dictation system. Although this document has been carefully reviewed, there may still be some phonetic and typographical errors. These areas are purely typographical due to imperfections of the software programs, and do not reflect any compromise in the patient's medical care Prognosis guarded Dietary Evaluation Review Comments: 1) If GI is accessible consider Nepro 1.8 @ 20 ml/hr with current rate of propofol on board 2) If pt remains NPO >7days of NPO status, provide TPN to meet at least 75% of estimated needs 3) Advance pt diet when medically feasible to a Renal Standard diet modified per SERVICE DESK MANAGER recommendations Expected Outcomes/Goals: 1) Pt to receive nutrition support within 7 days of NPO status 2) Pt diet to advance 3) F/U in 2-3 days Plan discussed with: Other Critical Care Time(min): 35 SUMIT SANTAMARIA MD Jul 28, 2024 10:43
[2024-07-28] MEDS: VANCOMYCIN 500mg/100mL 100 ML IV ONE (12:00)
[2024-07-28] MEDS: PHENYLEPHRINE HCL 10 MG/ML VL ONE (16:38)
--- NOTE | 2024-07-28 19:10 | DVHPN2 ---
Consult Progress Note Date Seen: Jul 25, 2024 Subjective Patient reports: Feels better (no diarrhea or rash) Objective vital signs Vital Sign Date Time Temp Pulse Resp B/P (MAP) Pulse Ox O2 Delivery O2 Flow Rate FiO2 07/28/24 18:57 100 26 109/50 (69) 98 40 07/28/24 18:00 Mechanical Ventilator+ 07/28/24 15:15 98.4 98.4 Total Intake and Output 07/27/24 07/27/24 07/28/24 15:00 23:00 07:00 Intake Total 862.504 ml 1248.566 ml 1053.441 ml Output Total 0 ml Balance 862.504 ml 1248.566 ml 1053.441 ml medications Current Medications Medications Dose Ordered Sig/Rey Route Start Time Stop Time Status Last Admin Dose Admin Vancomycin HCl 0 ml @ 0 mls/hr UD IV 07/08/24 17:00 Sodium Chloride 10 ml Q8HR IV 07/09/24 06:00 07/28/24 13:09 10 ML Vasopressin 20 units/Sodium Chloride 100 ml @ 9 mls/hr Q11H7M IV 07/09/24 13:15 07/28/24 11:57 9 MLS/HR Norepinephrine Bitartrate 32 mg/ Sodium Chloride 250 ml @ 0.938 mls/ hr Q24H IV 07/09/24 15:30 07/28/24 11:58 14.063 MLS/HR Phenylephrine HCl 80 mg/Sodium Chloride 250 ml @ 7.5 mls/hr Q24H IV 07/09/24 15:45 07/28/24 16:10 33.75 MLS/HR Epinephrine HCl 250 ml @ 7.5 mls/hr Q24H IV 07/09/24 17:00 07/26/24 11:28 7.5 MLS/HR Meropenem 50 ml @ 17 mls/hr Q24H IV 07/13/24 22:00 07/27/24 22:31 17 MLS/HR Albumin Human 50 ml @ 100 mls/hr PRN PRN IV 07/13/24 08:30 Cancel Albumin Human 50 ml @ 50 mls/hr PRN PRN IV 07/13/24 08:20 07/28/24 08:10 50 MLS/HR Albuterol 2.5 mg Q6HR HHN 07/18/24 18:00 07/28/24 18:57 2.5 MG Ipratropium [place] 0.5 mg Q6HR NEB 07/18/24 18:00 07/28/24 18:57 0.5 MG Hydralazine HCl 10 mg Q4HR PRN IV 07/19/24 15:30 Hold 07/22/24 09:41 10 MG Labetalol HCl 10 mg Q2HPRN PRN IV 07/22/24 11:15 Bacitracin 1 applic DAILY TOP 07/24/24 10:00 07/25/24 10:21 1 APPLIC Amphotericin B Liposome 250 mg/ Dextrose 187.5 ml @ 93.75 mls/ hr DAILY@2100 IV 07/24/24 21:00 07/27/24 21:00 93.75 MLS/HR Acetaminophen 650 mg DAILY@2030 PO 07/24/24 20:30 07/27/24 05:35 650 MG Diphenhydramine HCl 25 mg DAILY@2029 IV 07/24/24 20:30 07/27/24 21:33 25 MG Diagnostic Test (Pha) 1 strip Q6HR 07/26/24 18:00 07/28/24 17:52 1 STRIP Insulin Human Regular FOLLOW SLIDING SCALE Q6HR SC 07/26/24 18:00 07/27/24 23:59 2 UNITS Dextrose 50 ml UD IV 07/26/24 15:45 Amino Acids/ Electrolytes/ Dextrose 1,000 ml @ 41 mls/hr DAILY@2200 IV 07/26/24 22:00 07/28/24 21:59 07/27/24 21:51 41 MLS/HR Epoetin Justus-epbx 10,000 unit MWF@2100 SC 07/28/24 21:00 Midazolam HCl 50 ml @ 1 mls/hr Q24H IV 07/27/24 15:15 07/28/24 11:58 12 MLS/HR Fentanyl Citrate 250 ml @ 2.5 mls/hr Q24H IV 07/27/24 15:15 07/28/24 10:15 15 MLS/HR Amino Acids 0 ml @ 0 mls/hr PER PHARMACY IV 07/28/24 09:30 Pantoprazole Sodium 40 mg BID IV 07/28/24 10:00 Sodium Chloride 10 meq/Sodium Acetate 10 meq/ Multivitamins 10 ml/Amino Acids/ Dextrose 1,017.5 ml @ 43 mls/hr [id number] IV 07/28/24 22:00 07/29/24 21:59 PHYSICAL EXAM: - GENERAL: Alert and oriented x 3. No acute distress. Well-nourished. - EYES: EOMI. Anicteric. - HENT: Moist mucous membranes. No scleral icterus. No cervical lymphadenopathy. - LUNGS: Clear to auscultation bilaterally. No accessory muscle use. - CARDIOVASCULAR: Regular rate and rhythm. No murmur. No JVD. - ABDOMEN: Soft, non-tender and non-distended. No palpable masses. - EXTREMITIES: No edema. Non-tender.?SKIN: No rashes or lesions. Warm. - NEUROLOGIC: No focal neurological deficits. CN II-XII grossly intact, but not individually tested - PSYCHIATRIC: Cooperative. Appropriate mood and affect. laboratory and microbiology Laboratory Tests 07/28/24 03:10 Test 07/28/24 03:10 Range/Units Serum Glucose 107 H 74-106 mg/dL Problem List/Assessment/Plan Problem List/Assessment/Plan ID Problem List: - Septic shock - Necrotizing fasciitis of right lower extremity - End-stage renal disease on hemodialysis - Kidney cancer status post nephrectomy - Coronary artery disease - Hyperlipidemia - Status post CABG - ESBL Bacteria - Pneumonia Assessment This is a 58 y.o. male with a past medical history of kidney cancer status post nephrectomy, end-stage renal disease on hemodialysis, coronary artery disease, hyperlipidemia, and status post CABG, who presents with chest pain, fever, and right thigh tenderness concerning for necrotizing fasciitis. On admission, the patient had a temperature of 104F, hypotension (BP 78/45 mmHg), lactic acid 3.8 mmol/L, elevated AST (3044 U/L) and ALT (560 U/L), WBC count 37,000/mm, hemoglobin 7.5 g/dL, and platelets 62,000/mm. Physical examination notable for right thigh tenderness and generalized weakness. Initial imaging included CT scan of the right thigh showing subcutaneous edema with no gas in soft tissues and small bilateral knee effusions. Chest CT revealed bronchiovascular crowding; underlying pulmonary vascular condition cannot be excluded. Blood cultures are preliminarily positive for gram-negative rods. Respiratory cultures show gram-positive issa. An anaerobic bottle was positive for gram- negative rods. Laboratory studies reveal persistent elevation of liver enzymes with AST 3009 U/L and ALT 1976 U/L. Lactic acid increased to 15 mmol/L, platelets decreased to 32,000/mm. Peripheral smear shows [place] cells. Potassium is elevated at 6 mEq/L. The patient is intubated and sedated for acute hypoxic respiratory failure and altered mental status. 07/10: Undergoing ultra filtration and whitecount is elevated. Pressures are starting to come down since initiating meropenem and platelets are still low at 57 07/11: has an elevated whitecount of 19.1 , LFTs and renal function continue to worsen. blood cultures show ESBL E Coli . chest xray shows a left small bascular airspace disease . Fibrinogen is 433 appears to be adequate and patient is not having any additional signs of bleed . hemoglobin is stable at 8.4 and can hold off on additional transfusions outside of keeping hemoglobin above 7 and platelets above 50 07/12: whitecount is 28.43 , liver enzymes remain elevated at 2955 ALT and 2723 AST , as [place] [address] 07/24: extubated 2 days ago tolerated cpap on trickle feeds remains somewhat altered leukocytosis rising, restarted on pressors for last 2 days sacral ulcer present, thigh cellulitis resolved, respiratory culture w/ filamentus fungi Plan: - keep MAP goal to 65 for patient to maintain blood pressure support - check blood culture to confirm clearance of bacteremia - stop micafungin, start amphotericin B - Continue meropenem for broad-spectrum coverage targeting ESBL e.coli bacteremia, will pull off antibiotics in the coming days now that patient is sp 14 days course. - continue vancomycin empirically in setting of septic shock - Surgical Consultation: Agree with general surgeon that clinical picture favors hematoma vs cellulitis , no signs of necrotizing infection at this time - Supportive Care: Continue vasopressor support with norepinephrine (Levophed) and epinephrine as needed for septic shock. - Laboratory Monitoring: Recheck laboratory values including CBC, CMP, lactic acid, and coagulation profile. Monitor liver function tests. - Renal Management: Coordinate with nephrology for hemodialysis management. - Isolation Precautions: Standard precautions. Authorized and Performed by: sangeetha melendrez Total critical care time: Approximately 74 minutes Due to a high probability of clinically significant, life threatening deterioration, the patient required my highest level of preparedness to intervene emergently and I personally spent this critical care time directly and personally managing the patient. This critical care time included obtaining a history; examining the patient; pulse oximetry; ordering and review of studies; arranging urgent treatment with development of a management plan; evaluation of patient's response to treatment; frequent reassessment; and, discussions with other providers. This critical care time was performed to assess and manage the high probability of imminent, life-threatening deterioration that could result in multi-organ failure. It was exclusive of separately billable procedures and treating other patients and teaching time. Plan discussed with: Patient Dietary Evaluation Review Comments: 1) If GI is accessible consider Nepro 1.8 @ 20 ml/hr with current rate of propofol on board 2) If pt remains NPO >7days of NPO status, provide TPN to meet at least 75% of estimated needs 3) Advance pt diet when medically feasible to a Renal Standard diet modified per CONTROL TOWER OPERATOR recommendations Expected Outcomes/Goals: 1) Pt to receive nutrition support within 7 days of NPO status 2) Pt diet to advance 3) F/U in 2-3 days SANGEETHA MELENDREZ MD Jul 28, 2024 19:10
[2024-07-28] MEDS ORDERED: VANCOMYCIN PER PHARMACY 0 MG IV SCH (19:15)
--- NOTE | 2024-07-28 19:32 | DVHPN2 ---
Consult Progress Note Date Seen: Jul 27, 2024 Subjective Patient reports: Feels better (thick mendoza secretions patient reintubated) Objective vital signs Vital Sign Date Time Temp Pulse Resp B/P (MAP) Pulse Ox O2 Delivery O2 Flow Rate FiO2 07/28/24 18:57 100 26 109/50 (69) 98 40 07/28/24 18:00 Mechanical Ventilator+ 07/28/24 15:15 98.4 98.4 Total Intake and Output 07/27/24 07/27/24 07/28/24 15:00 23:00 07:00 Intake Total 862.504 ml 1248.566 ml 1053.441 ml Output Total 0 ml Balance 862.504 ml 1248.566 ml 1053.441 ml medications Current Medications Medications Dose Ordered Sig/Rey Route Start Time Stop Time Status Last Admin Dose Admin Vancomycin HCl 0 ml @ 0 mls/hr UD IV 07/08/24 17:00 Sodium Chloride 10 ml Q8HR IV 07/09/24 06:00 07/28/24 13:09 10 ML Vasopressin 20 units/Sodium Chloride 100 ml @ 9 mls/hr Q11H7M IV 07/09/24 13:15 07/28/24 11:57 9 MLS/HR Norepinephrine Bitartrate 32 mg/ Sodium Chloride 250 ml @ 0.938 mls/ hr Q24H IV 07/09/24 15:30 07/28/24 11:58 14.063 MLS/HR Phenylephrine HCl 80 mg/Sodium Chloride 250 ml @ 7.5 mls/hr Q24H IV 07/09/24 15:45 07/28/24 16:10 33.75 MLS/HR Epinephrine HCl 250 ml @ 7.5 mls/hr Q24H IV 07/09/24 17:00 07/26/24 11:28 7.5 MLS/HR Meropenem 50 ml @ 17 mls/hr Q24H IV 07/13/24 22:00 07/27/24 22:31 17 MLS/HR Albumin Human 50 ml @ 100 mls/hr PRN PRN IV 07/13/24 08:30 Cancel Albumin Human 50 ml @ 50 mls/hr PRN PRN IV 07/13/24 08:20 07/28/24 08:10 50 MLS/HR Albuterol 2.5 mg Q6HR HHN 07/18/24 18:00 07/28/24 18:57 2.5 MG Ipratropium [place] 0.5 mg Q6HR NEB 07/18/24 18:00 07/28/24 18:57 0.5 MG Hydralazine HCl 10 mg Q4HR PRN IV 07/19/24 15:30 Hold 07/22/24 09:41 10 MG Labetalol HCl 10 mg Q2HPRN PRN IV 07/22/24 11:15 Bacitracin 1 applic DAILY TOP 07/24/24 10:00 07/25/24 10:21 1 APPLIC Amphotericin B Liposome 250 mg/ Dextrose 187.5 ml @ 93.75 mls/ hr DAILY@2100 IV 07/24/24 21:00 07/27/24 21:00 93.75 MLS/HR Acetaminophen 650 mg DAILY@2030 PO 07/24/24 20:30 07/27/24 05:35 650 MG Diphenhydramine HCl 25 mg DAILY@2029 IV 07/24/24 20:30 07/27/24 21:33 25 MG Diagnostic Test (Pha) 1 strip Q6HR 07/26/24 18:00 07/28/24 17:52 1 STRIP Insulin Human Regular FOLLOW SLIDING SCALE Q6HR SC 07/26/24 18:00 07/27/24 23:59 2 UNITS Dextrose 50 ml UD IV 07/26/24 15:45 Amino Acids/ Electrolytes/ Dextrose 1,000 ml @ 41 mls/hr DAILY@2200 IV 07/26/24 22:00 07/28/24 21:59 07/27/24 21:51 41 MLS/HR Epoetin Justus-epbx 10,000 unit MWF@2100 SC 07/28/24 21:00 Midazolam HCl 50 ml @ 1 mls/hr Q24H IV 07/27/24 15:15 07/28/24 11:58 12 MLS/HR Fentanyl Citrate 250 ml @ 2.5 mls/hr Q24H IV 07/27/24 15:15 07/28/24 10:15 15 MLS/HR Amino Acids 0 ml @ 0 mls/hr PER PHARMACY IV 07/28/24 09:30 Pantoprazole Sodium 40 mg BID IV 07/28/24 10:00 Sodium Chloride 10 meq/Sodium Acetate 10 meq/ Multivitamins 10 ml/Amino Acids/ Dextrose 1,017.5 ml @ 43 mls/hr [id number] IV 07/28/24 22:00 07/29/24 21:59 PHYSICAL EXAM: - GENERAL: Alert and oriented x 3. No acute distress. Well-nourished. - EYES: EOMI. Anicteric. - HENT: Moist mucous membranes. No scleral icterus. No cervical lymphadenopathy. - LUNGS: Clear to auscultation bilaterally. No accessory muscle use. - CARDIOVASCULAR: Regular rate and rhythm. No murmur. No JVD. - ABDOMEN: Soft, non-tender and non-distended. No palpable masses. - EXTREMITIES: No edema. Non-tender.?SKIN: No rashes or lesions. Warm. - NEUROLOGIC: No focal neurological deficits. CN II-XII grossly intact, but not individually tested - PSYCHIATRIC: Cooperative. Appropriate mood and affect. laboratory and microbiology Laboratory Tests 07/28/24 03:10 Test 07/28/24 03:10 Range/Units Serum Glucose 107 H 74-106 mg/dL Problem List/Assessment/Plan Problem List/Assessment/Plan ID Problem List: - Septic shock - Necrotizing fasciitis of right lower extremity - End-stage renal disease on hemodialysis - Kidney cancer status post nephrectomy - Coronary artery disease - Hyperlipidemia - Status post CABG - ESBL Bacteria - Pneumonia Assessment This is a 58 y.o. male with a past medical history of kidney cancer status post nephrectomy, end-stage renal disease on hemodialysis, coronary artery disease, hyperlipidemia, and status post CABG, who presents with chest pain, fever, and right thigh tenderness concerning for necrotizing fasciitis. On admission, the patient had a temperature of 104F, hypotension (BP 78/45 mmHg), lactic acid 3.8 mmol/L, elevated AST (3044 U/L) and ALT (560 U/L), WBC count 37,000/mm, hemoglobin 7.5 g/dL, and platelets 62,000/mm. Physical examination notable for right thigh tenderness and generalized weakness. Initial imaging included CT scan of the right thigh showing subcutaneous edema with no gas in soft tissues and small bilateral knee effusions. Chest CT revealed bronchiovascular crowding; underlying pulmonary vascular condition cannot be excluded. Blood cultures are preliminarily positive for gram-negative rods. Respiratory cultures show gram-positive issa. An anaerobic bottle was positive for gram- negative rods. Laboratory studies reveal persistent elevation of liver enzymes with AST 3009 U/L and ALT 1976 U/L. Lactic acid increased to 15 mmol/L, platelets decreased to 32,000/mm. Peripheral smear shows [place] cells. Potassium is elevated at 6 mEq/L. The patient is intubated and sedated for acute hypoxic respiratory failure and altered mental status. 07/10: Undergoing ultra filtration and whitecount is elevated. Pressures are starting to come down since initiating meropenem and platelets are still low at 57 07/11: has an elevated whitecount of 19.1 , LFTs and renal function continue to worsen. blood cultures show ESBL E Coli . chest xray shows a left small bascular airspace disease . Fibrinogen is 433 appears to be adequate and patient is not having any additional signs of bleed . hemoglobin is stable at 8.4 and can hold off on additional transfusions outside of keeping hemoglobin above 7 and platelets above 50 07/12: whitecount is 28.43 , liver enzymes remain elevated at 2955 ALT and 2723 AST , as [place] [address] 07/24: extubated 2 days ago tolerated cpap on trickle feeds remains somewhat altered leukocytosis rising, restarted on pressors for last 2 days sacral ulcer present, thigh cellulitis resolved, respiratory culture w/ filamentus fungi 06/25: high fevers 06/26: thick mendoza secretions patient reintubated Plan: - keep MAP goal to 65 for patient to maintain blood pressure support - check blood culture to confirm clearance of bacteremia - continue amphotericin B - Continue meropenem for broad-spectrum coverage targeting ESBL e.coli bacteremia, will pull off antibiotics in the coming days now that patient is sp 14 days course. - continue vancomycin empirically in setting of septic shock - Surgical Consultation: Agree with general surgeon that clinical picture favors hematoma vs cellulitis , no signs of necrotizing infection at this time - Supportive Care: Continue vasopressor support with norepinephrine (Levophed) and epinephrine as needed for septic shock. - Laboratory Monitoring: Recheck laboratory values including CBC, CMP, lactic acid, and coagulation profile. Monitor liver function tests. - Renal Management: Coordinate with nephrology for hemodialysis management. - Isolation Precautions: Standard precautions. Authorized and Performed by: sangeetha melendrez Total critical care time: Approximately 73 minutes Due to a high probability of clinically significant, life threatening deterioration, the patient required my highest level of preparedness to intervene emergently and I personally spent this critical care time directly and personally managing the patient. This critical care time included obtaining a history; examining the patient; pulse oximetry; ordering and review of studies; arranging urgent treatment with development of a management plan; evaluation of patient's response to treatment; frequent reassessment; and, discussions with other providers. This critical care time was performed to assess and manage the high probability of imminent, life-threatening deterioration that could result in multi-organ failure. It was exclusive of separately billable procedures and treating other patients and teaching time. Plan discussed with: Patient Dietary Evaluation Review Comments: 1) If GI is accessible consider Nepro 1.8 @ 20 ml/hr with current rate of propofol on board 2) If pt remains NPO >7days of NPO status, provide TPN to meet at least 75% of estimated needs 3) Advance pt diet when medically feasible to a Renal Standard diet modified per DESK EDITOR recommendations Expected Outcomes/Goals: 1) Pt to receive nutrition support within 7 days of NPO status 2) Pt diet to advance 3) F/U in 2-3 days SANGEETHA MELENDREZ MD Jul 28, 2024 19:32
[2024-07-28 21:01] LABS: INR 1.7 (0.9-1.15); Prothrombin Time 17.1 sec (9.3-11.8)
[2024-07-28] MEDS: EPOETIN ALFA-EPBX 10,000 UNIT/1ML VIAL SC SCH (21:52)
[2024-07-28] MEDS: TPN PER PHARMACY IV NR (21:54)
--- NOTE | 2024-07-28 21:55 | DVHPN2 ---
Consult Progress Note Date Seen: Jul 28, 2024 Subjective Patient reports: Other (remains intubated , FIO2 40% and on multiple pressures ( epinephrine , levofed , vasopressin) , volume overload with swollen extremities and left arm is much more swollen than left and not tolerating dialysis and not producing any urine ) Objective vital signs Vital Sign Date Time Temp Pulse Resp B/P (MAP) Pulse Ox O2 Delivery O2 Flow Rate FiO2 07/28/24 21:00 98.3 99 12 116/37 (63) 99 98.3 105/49 (67) 07/28/24 20:14 40 07/28/24 20:00 Mechanical Ventilator+ Total Intake and Output 07/27/24 07/27/24 07/28/24 15:00 23:00 07:00 Intake Total 862.504 ml 1248.566 ml 1053.441 ml Output Total 0 ml Balance 862.504 ml 1248.566 ml 1053.441 ml medications Current Medications Medications Dose Ordered Sig/Rey Route Start Time Stop Time Status Last Admin Dose Admin Vancomycin HCl 0 ml @ 0 mls/hr UD IV 07/08/24 17:00 Cancel Sodium Chloride 10 ml Q8HR IV 07/09/24 06:00 07/28/24 13:09 10 ML Vasopressin 20 units/Sodium Chloride 100 ml @ 9 mls/hr Q11H7M IV 07/09/24 13:15 07/28/24 11:57 9 MLS/HR Norepinephrine Bitartrate 32 mg/ Sodium Chloride 250 ml @ 0.938 mls/ hr Q24H IV 07/09/24 15:30 07/28/24 11:58 14.063 MLS/HR Phenylephrine HCl 80 mg/Sodium Chloride 250 ml @ 7.5 mls/hr Q24H IV 07/09/24 15:45 07/28/24 16:10 33.75 MLS/HR Epinephrine HCl 250 ml @ 7.5 mls/hr Q24H IV 07/09/24 17:00 07/26/24 11:28 7.5 MLS/HR Meropenem 50 ml @ 17 mls/hr Q24H IV 07/13/24 22:00 07/27/24 22:31 17 MLS/HR Albumin Human 50 ml @ 100 mls/hr PRN PRN IV 07/13/24 08:30 Cancel Albumin Human 50 ml @ 50 mls/hr PRN PRN IV 07/13/24 08:20 07/28/24 08:10 50 MLS/HR Albuterol 2.5 mg Q6HR HHN 07/18/24 18:00 07/28/24 18:57 2.5 MG Ipratropium [place] 0.5 mg Q6HR NEB 07/18/24 18:00 07/28/24 18:57 0.5 MG Hydralazine HCl 10 mg Q4HR PRN IV 07/19/24 15:30 Hold 07/22/24 09:41 10 MG Labetalol HCl 10 mg Q2HPRN PRN IV 07/22/24 11:15 Bacitracin 1 applic DAILY TOP 07/24/24 10:00 07/25/24 10:21 1 APPLIC Amphotericin B Liposome 250 mg/ Dextrose 187.5 ml @ 93.75 mls/ hr DAILY@2100 IV 07/24/24 21:00 07/27/24 21:00 93.75 MLS/HR Acetaminophen 650 mg DAILY@2029 PO 07/24/24 20:30 07/28/24 20:34 650 MG Diphenhydramine HCl 25 mg DAILY@2030 IV 07/24/24 20:30 07/28/24 20:34 25 MG Diagnostic Test (Pha) 1 strip Q6HR 07/26/24 18:00 07/28/24 17:52 1 STRIP Insulin Human Regular FOLLOW SLIDING SCALE Q6HR SC 07/26/24 18:00 07/27/24 23:59 2 UNITS Dextrose 50 ml UD IV 07/26/24 15:45 Amino Acids/ Electrolytes/ Dextrose 1,000 ml @ 41 mls/hr DAILY@2200 IV 07/26/24 22:00 07/28/24 21:59 07/27/24 21:51 41 MLS/HR Epoetin Justus-epbx 10,000 unit MWF@2100 SC 07/28/24 21:00 Midazolam HCl 50 ml @ 1 mls/hr Q24H IV 07/27/24 15:15 07/28/24 20:47 12 MLS/HR Fentanyl Citrate 250 ml @ 2.5 mls/hr Q24H IV 07/27/24 15:15 07/28/24 10:15 15 MLS/HR Amino Acids 0 ml @ 0 mls/hr PER PHARMACY IV 07/28/24 09:30 Pantoprazole Sodium 40 mg BID IV 07/28/24 10:00 Sodium Chloride 10 meq/Sodium Acetate 10 meq/ Multivitamins 10 ml/Amino Acids/ Dextrose 1,017.5 ml @ 43 mls/hr Q19P75S IV 07/28/24 22:00 07/29/24 21:59 Vancomycin HCl 0 ml @ 0 mls/hr UD IV 07/28/24 19:15 PHYSICAL EXAM: - GENERAL: Alert and oriented x 3. No acute distress. Well-nourished. - EYES: EOMI. Anicteric. - HENT: Moist mucous membranes. No scleral icterus. No cervical lymphadenopathy. - LUNGS: Clear to auscultation bilaterally. No accessory muscle use. - CARDIOVASCULAR: Regular rate and rhythm. No murmur. No JVD. - ABDOMEN: Soft, non-tender and non-distended. No palpable masses. - EXTREMITIES: No edema. Non-tender.?SKIN: No rashes or lesions. Warm. - NEUROLOGIC: No focal neurological deficits. CN II-XII grossly intact, but not individually tested - PSYCHIATRIC: Cooperative. Appropriate mood and affect. laboratory and microbiology Laboratory Tests 07/28/24 03:10 Test 07/28/24 03:10 Range/Units Serum Glucose 107 H 74-106 mg/dL Problem List/Assessment/Plan Problems(with codes): (1) Jaundice (2) Coffee ground emesis (3) Necrotizing fasciitis of lower leg (4) Elevated liver enzymes (5) End-stage renal disease on hemodialysis (6) Acute kidney failure, unspecified (7) Chronic kidney disease, unspecified (8) Severe anemia (9) Sepsis, unspecified organism Problem List/Assessment/Plan ID Problem List: - Septic shock - Necrotizing fasciitis of right lower extremity - End-stage renal disease on hemodialysis - Kidney cancer status post nephrectomy - Coronary artery disease - Hyperlipidemia - Status post CABG - ESBL Bacteria - Pneumonia Assessment This is a 58 y.o. male with a past medical history of kidney cancer status post nephrectomy, end-stage renal disease on hemodialysis, coronary artery disease, hyperlipidemia, and status post CABG, who presents with chest pain, fever, and right thigh tenderness concerning for necrotizing fasciitis. On admission, the patient had a temperature of 104F, hypotension (BP 78/45 mmHg), lactic acid 3.8 mmol/L, elevated AST (3044 U/L) and ALT (560 U/L), WBC count 37,000/mm, hemoglobin 7.5 g/dL, and platelets 62,000/mm. Physical examination notable for right thigh tenderness and generalized weakness. Initial imaging included CT scan of the right thigh showing subcutaneous edema with no gas in soft tissues and small bilateral knee effusions. Chest CT revealed bronchiovascular crowding; underlying pulmonary vascular condition cannot be excluded. Blood cultures are preliminarily positive for gram-negative rods. Respiratory cultures show gram-positive issa. An anaerobic bottle was positive for gram- negative rods. Laboratory studies reveal persistent elevation of liver enzymes with AST 3009 U/L and ALT 1976 U/L. Lactic acid increased to 15 mmol/L, platelets decreased to 32,000/mm. Peripheral smear shows [place] cells. Potassium is elevated at 6 mEq/L. The patient is intubated and sedated for acute hypoxic respiratory failure and altered mental status. 07/10: Undergoing ultra filtration and whitecount is elevated. Pressures are starting to come down since initiating meropenem and platelets are still low at 57 07/11: has an elevated whitecount of 19.1 , LFTs and renal function continue to worsen. blood cultures show ESBL E Coli . chest xray shows a left small bascular airspace disease . Fibrinogen is 433 appears to be adequate and patient is not having any additional signs of bleed . hemoglobin is stable at 8.4 and can hold off on additional transfusions outside of keeping hemoglobin above 7 and platelets above 50 07/12: whitecount is 28.43 , liver enzymes remain elevated at 2955 ALT and 2723 AST , as [place] [address] 07/24: extubated 2 days ago tolerated cpap on trickle feeds remains somewhat altered leukocytosis rising, restarted on pressors for last 2 days sacral ulcer present, thigh cellulitis resolved, respiratory culture w/ filamentus fungi 06/25: high fevers 06/26: thick mendoza secretions patient reintubated 07/28: whitecount is 13.6 , repeat blood cultures show young colonies Plan: - monitor LFTs daily - keep MAP goal to 65 for patient to maintain blood pressure support - check blood culture to confirm clearance of bacteremia - continue amphotericin B - Continue meropenem for broad-spectrum coverage targeting ESBL e.coli bacteremia - continue vancomycin empirically in setting of septic shock - Surgical Consultation: Agree with general surgeon that clinical picture favors hematoma vs cellulitis , no signs of necrotizing infection at this time - Supportive Care: Continue vasopressor support with norepinephrine (Levophed) and epinephrine as needed for septic shock. - Laboratory Monitoring: Recheck laboratory values including CBC, CMP, lactic acid, and coagulation profile. Monitor liver function tests. - Renal Management: Coordinate with nephrology for hemodialysis management. - Isolation Precautions: Standard precautions. Authorized and Performed by: sangeetha melendrez Total critical care time: Approximately 73 minutes Due to a high probability of clinically significant, life threatening deterioration, the patient required my highest level of preparedness to intervene emergently and I personally spent this critical care time directly and personally managing the patient. This critical care time included obtaining a history; examining the patient; pulse oximetry; ordering and review of studies; arranging urgent treatment with development of a management plan; evaluation of patient's response to treatment; frequent reassessment; and, discussions with other providers. This critical care time was performed to assess and manage the high probability of imminent, life-threatening deterioration that could result in multi-organ failure. It was exclusive of separately billable procedures and treating other patients and teaching time. Plan discussed with: Other Dietary Evaluation Review Comments: 1) If GI is accessible consider Nepro 1.8 @ 20 ml/hr with current rate of propofol on board 2) If pt remains NPO >7days of NPO status, provide TPN to meet at least 75% of estimated needs 3) Advance pt diet when medically feasible to a Renal Standard diet modified per ASSOCIATE PROFESSOR OF LITERACY recommendations Expected Outcomes/Goals: 1) Pt to receive nutrition support within 7 days of NPO status 2) Pt diet to advance 3) F/U in 2-3 days SANGEETHA MELENDREZ MD Jul 28, 2024 21:55
--- NOTE | 2024-07-28 22:13 | DVHPN2 ---
Progress Note - Dictate Date Seen: Jul 28, 2024 Has the PT tested + for MRSA If YES, has PT been informed?: No Medical Necessity Reason Pt with a Central, PICC or Fol: Yes The following are medically ne: Central Line Subjective Patient was seen and evaluated in follow up in the ICU. Patient intubated and sedated on ventilator. 40% FiO2. Patient is unresponsive to strong, painful stimuli. Patient received HD this am. WBC 13.6, BUN 82, PIPE INSPECTOR 6.03, AST 76. Chest x-ray shows stable pulmonary vascular congestion. vital signs Vital Sign Date Time Temp Pulse Resp B/P (MAP) Pulse Ox O2 Delivery O2 Flow Rate FiO2 07/28/24 14:00 26 100 Mechanical Ventilator+ 40 40 07/28/24 14:00 111 07/28/24 14:00 135/53 (80) 120/57 (78) 07/28/24 12:00 100.0 100.0 Total Intake and Output 07/27/24 07/27/24 07/28/24 15:00 23:00 07:00 Intake Total 862.504 ml 1248.566 ml 1053.441 ml Output Total 0 ml Balance 862.504 ml 1248.566 ml 1053.441 ml medications Current Medications Medications Dose Ordered Sig/Rey Route Start Time Stop Time Status Last Admin Dose Admin Vancomycin HCl 0 ml @ 0 mls/hr UD IV 07/08/24 17:00 Sodium Chloride 10 ml Q8HR IV 07/09/24 06:00 07/28/24 13:09 10 ML Vasopressin 20 units/Sodium Chloride 100 ml @ 9 mls/hr Q11H7M IV 07/09/24 13:15 07/28/24 11:57 9 MLS/HR Norepinephrine Bitartrate 32 mg/ Sodium Chloride 250 ml @ 0.938 mls/ hr Q24H IV 07/09/24 15:30 07/28/24 11:58 14.063 MLS/HR Phenylephrine HCl 80 mg/Sodium Chloride 250 ml @ 7.5 mls/hr Q24H IV 07/09/24 15:45 07/28/24 07:52 33.75 MLS/HR Epinephrine HCl 250 ml @ 7.5 mls/hr Q24H IV 07/09/24 17:00 07/26/24 11:28 7.5 MLS/HR Meropenem 50 ml @ 17 mls/hr Q24H IV 07/13/24 22:00 07/27/24 22:31 17 MLS/HR Albumin Human 50 ml @ 100 mls/hr PRN PRN IV 07/13/24 08:30 Cancel Albumin Human 50 ml @ 50 mls/hr PRN PRN IV 07/13/24 08:20 07/28/24 08:10 50 MLS/HR Albuterol 2.5 mg Q6HR HHN 07/18/24 18:00 07/28/24 12:05 2.5 MG Ipratropium [place] 0.5 mg Q6HR NEB 07/18/24 18:00 07/28/24 12:05 0.5 MG Hydralazine HCl 10 mg Q4HR PRN IV 07/19/24 15:30 Hold 07/22/24 09:41 10 MG Labetalol HCl 10 mg Q2HPRN PRN IV 07/22/24 11:15 Bacitracin 1 applic DAILY TOP 07/24/24 10:00 07/25/24 10:21 1 APPLIC Amphotericin B Liposome 250 mg/ Dextrose 187.5 ml @ 93.75 mls/ hr DAILY@2100 IV 07/24/24 21:00 07/27/24 21:00 93.75 MLS/HR Acetaminophen 650 mg DAILY@2030 PO 07/24/24 20:30 07/27/24 05:35 650 MG Diphenhydramine HCl 25 mg DAILY@2030 IV 07/24/24 20:30 07/27/24 21:33 25 MG Diagnostic Test (Pha) 1 strip Q6HR 07/26/24 18:00 07/28/24 11:56 1 STRIP Insulin Human Regular FOLLOW SLIDING SCALE Q6HR SC 07/26/24 18:00 07/27/24 23:59 2 UNITS Dextrose 50 ml UD IV 07/26/24 15:45 Amino Acids/ Electrolytes/ Dextrose 1,000 ml @ 41 mls/hr DAILY@2200 IV 07/26/24 22:00 07/28/24 21:59 07/27/24 21:51 41 MLS/HR Epoetin Justus-epbx 10,000 unit MWF@2100 SC 07/28/24 21:00 Midazolam HCl 50 ml @ 1 mls/hr Q24H IV 07/27/24 15:15 07/28/24 11:58 12 MLS/HR Fentanyl Citrate 250 ml @ 2.5 mls/hr Q24H IV 07/27/24 15:15 07/28/24 10:15 15 MLS/HR Amino Acids 0 ml @ 0 mls/hr PER PHARMACY IV 07/28/24 09:30 Pantoprazole Sodium 40 mg BID IV 07/28/24 10:00 Sodium Chloride 10 meq/Sodium Acetate 10 meq/ Multivitamins 10 ml/Amino Acids/ Dextrose 1,017.5 ml @ 43 mls/hr [id number] IV 07/28/24 22:00 07/29/24 21:59 objective GENERAL: Intubated on ventilator. Morbidly obese. LUNGS: Decreased breath sounds. CARDIOVASCULAR: Heart sounds are good. ABDOMEN: Soft. EXT: BLE edema. laboratory and microbiology Laboratory Tests 07/28/24 03:10 Test 07/28/24 03:10 Range/Units Serum Glucose 107 H 74-106 mg/dL Problem List Hypotension secondary to septic shock. Coronary artery disease status post CABG in 2021. History of hypertension. Hyperlipidemia. Hyperkalemia. Acute anemia. Thrombocytopenia. Transaminitis. End-stage renal disease on hemodialysis. Renal cell carcinoma status post left nephrectomy. COPD. Asthma. Morbid obesity. Dilated cardiomyopathy. Metabolic encephalopathy. Assessment/Plan Continued all current supportive medical care. GI prophylactics. IV antibiotics as ordered. Vasopressors for hemodynamic support. Additional plan as per the hospital course. Critical care time of 45 minutes provided to include time spent evaluation of patient at bedside, when appropriate patient/family education for diagnosis, treatment plan, review of pertinent medical information and discussion of care with specialty providers and PCP. Mechanical ventilator parameters, treatment and adjustments have personally been reviewed by me and treatment plan by training program manager has also been reviewed. Dietary Evaluation Review Comments: 1) If GI is accessible consider Nepro 1.8 @ 20 ml/hr with current rate of propofol on board 2) If pt remains NPO >7days of NPO status, provide TPN to meet at least 75% of estimated needs 3) Advance pt diet when medically feasible to a Renal Standard diet modified per HITTING COACH recommendations Expected Outcomes/Goals: 1) Pt to receive nutrition support within 7 days of NPO status 2) Pt diet to advance 3) F/U in 2-3 days Plan discussed with: Other SIMMONS,MUKESHCHANDRA M MD Jul 28, 2024 14:09
--- NOTE | 2024-07-28 22:31 | DVHPN2 ---
Progress Note - Dictate Date Seen: Jul 28, 2024 Has the PT tested + for MRSA If YES, has PT been informed?: No Medical Necessity Reason Pt with a Central, PICC or Fol: Yes The following are medically ne: Central Line Subjective Patient is intubated and sedated Leukocytosis is improving , hemoglobin down to 8.0 liver enzymes are trending down and lactic acid is normalized NG tube output is minimal with the old bile mixed with some blood but no active bleeding Patient had a bowel movement today which also did not show any significant amount of bleeding but there may have been some old dark stools vital signs Vital Sign Date Time Temp Pulse Resp B/P (MAP) Pulse Ox O2 Delivery O2 Flow Rate FiO2 07/28/24 22:09 99 26 94/44 (61) 100 40 07/28/24 21:00 98.3 98.3 07/28/24 20:00 Mechanical Ventilator+ Total Intake and Output 07/27/24 07/27/24 07/28/24 15:00 23:00 07:00 Intake Total 862.504 ml 1248.566 ml 1053.441 ml Output Total 0 ml Balance 862.504 ml 1248.566 ml 1053.441 ml medications Current Medications Medications Dose Ordered Sig/Rey Route Start Time Stop Time Status Last Admin Dose Admin Vancomycin HCl 0 ml @ 0 mls/hr UD IV 07/08/24 17:00 Cancel Sodium Chloride 10 ml Q8HR IV 07/09/24 06:00 07/28/24 21:52 10 ML Vasopressin 20 units/Sodium Chloride 100 ml @ 9 mls/hr Q11H7M IV 07/09/24 13:15 07/28/24 11:57 9 MLS/HR Norepinephrine Bitartrate 32 mg/ Sodium Chloride 250 ml @ 0.938 mls/ hr Q24H IV 07/09/24 15:30 07/28/24 11:58 14.063 MLS/HR Phenylephrine HCl 80 mg/Sodium Chloride 250 ml @ 7.5 mls/hr Q24H IV 07/09/24 15:45 07/28/24 16:10 33.75 MLS/HR Epinephrine HCl 250 ml @ 7.5 mls/hr Q24H IV 07/09/24 17:00 07/26/24 11:28 7.5 MLS/HR Meropenem 50 ml @ 17 mls/hr Q24H IV 07/13/24 22:00 07/28/24 21:53 17 MLS/HR Albumin Human 50 ml @ 100 mls/hr PRN PRN IV 07/13/24 08:30 Cancel Albumin Human 50 ml @ 50 mls/hr PRN PRN IV 07/13/24 08:20 07/28/24 08:10 50 MLS/HR Albuterol 2.5 mg Q6HR HHN 07/18/24 18:00 07/28/24 18:57 2.5 MG Ipratropium [place] 0.5 mg Q6HR NEB 07/18/24 18:00 07/28/24 18:57 0.5 MG Hydralazine HCl 10 mg Q4HR PRN IV 07/19/24 15:30 Hold 07/22/24 09:41 10 MG Labetalol HCl 10 mg Q2HPRN PRN IV 07/22/24 11:15 Bacitracin 1 applic DAILY TOP 07/24/24 10:00 07/25/24 10:21 1 APPLIC Amphotericin B Liposome 250 mg/ Dextrose 187.5 ml @ 93.75 mls/ hr DAILY@2100 IV 07/24/24 21:00 07/28/24 21:00 93.75 MLS/HR Acetaminophen 650 mg DAILY@2030 PO 07/24/24 20:30 07/28/24 20:34 650 MG Diphenhydramine HCl 25 mg DAILY@2030 IV 07/24/24 20:30 07/28/24 20:34 25 MG Diagnostic Test (Pha) 1 strip Q6HR 07/26/24 18:00 07/28/24 17:52 1 STRIP Insulin Human Regular FOLLOW SLIDING SCALE Q6HR SC 07/26/24 18:00 07/27/24 23:59 2 UNITS Dextrose 50 ml UD IV 07/26/24 15:45 Epoetin Justus-epbx 10,000 unit MWF@2100 SC 07/28/24 21:00 07/28/24 21:52 10,000 UNIT Midazolam HCl 50 ml @ 1 mls/hr Q24H IV 07/27/24 15:15 07/28/24 20:47 12 MLS/HR Fentanyl Citrate 250 ml @ 2.5 mls/hr Q24H IV 07/27/24 15:15 07/28/24 10:15 15 MLS/HR Amino Acids 0 ml @ 0 mls/hr PER PHARMACY IV 07/28/24 09:30 Pantoprazole Sodium 40 mg BID IV 07/28/24 10:00 07/28/24 21:52 40 MG Sodium Chloride 10 meq/Sodium Acetate 10 meq/ Multivitamins 10 ml/Amino Acids/ Dextrose 1,017.5 ml @ 43 mls/hr [id number] IV 07/28/24 22:00 07/29/24 21:59 07/28/24 21:54 43 MLS/HR Vancomycin HCl 0 ml @ 0 mls/hr UD IV 07/28/24 19:15 objective GENERAL: Intubated on ventilator. obese. NG output bilious LUNGS: Decreased breath sounds. CARDIOVASCULAR: Heart sounds are good. ABDOMEN: Soft. Nontender EXT: BLE edema. laboratory and microbiology Laboratory Tests 07/28/24 03:10 Test 07/28/24 03:10 Range/Units Serum Glucose 107 H 74-106 mg/dL Problems(with codes): (1) Jaundice (2) Coffee ground emesis (3) Necrotizing fasciitis of lower leg (4) Elevated liver enzymes (5) End-stage renal disease on hemodialysis (6) Acute kidney failure, unspecified (7) Chronic kidney disease, unspecified (8) Severe anemia (9) Sepsis, unspecified organism (10) Generalized weakness (11) Pneumonia, unspecified organism Prognosis Plan Coffee-ground emesis Patient at this time does not appeared to be having active GI bleeding, he was reintubated I suspect he has stress-induced gastritis or ulcers Continue IV Protonix drip Continue to monitor labs NG tube to low intermittent suction Transfuse if hemoglobin drops below seven Elevated liver enzymes It appears to have been initiated by hypoxic liver injury or shock liver The liver enzymes are trending down however the cholestasis is dragging Hepatitis profile liver enzymes are negative Continue to monitor labs ; repeat CMP in a.m. Continue supportive care Dietary Evaluation Review Comments: 1) If GI is accessible consider Nepro 1.8 @ 20 ml/hr with current rate of propofol on board 2) If pt remains NPO >7days of NPO status, provide TPN to meet at least 75% of estimated needs 3) Advance pt diet when medically feasible to a Renal Standard diet modified per DIRECTOR EMERGENCY SERVICES recommendations Expected Outcomes/Goals: 1) Pt to receive nutrition support within 7 days of NPO status 2) Pt diet to advance 3) F/U in 2-3 days Plan discussed with: Other (Nurse) VIVIANA SHI MD Jul 28, 2024 22:31
--- NOTE | 2024-07-28 23:44 | DVHPN2 ---
Progress Note - Dictate Date Seen: Jul 28, 2024 Has the PT tested + for MRSA If YES, has PT been informed?: No Medical Necessity Reason Pt with a Central, PICC or Fol: Yes The following are medically ne: Central Line Subjective Patient seen and examined at bedside. Sedated, intubated on mechanical ventilator. Overnight events reviewed. vital signs Vital Sign Date Time Temp Pulse Resp B/P (MAP) Pulse Ox O2 Delivery O2 Flow Rate FiO2 07/28/24 23:16 99 26 99/46 (63) 100 40 07/28/24 22:00 Mechanical Ventilator+ 07/28/24 21:00 98.3 98.3 Total Intake and Output 07/27/24 07/27/24 07/28/24 15:00 23:00 07:00 Intake Total 862.504 ml 1248.566 ml 1053.441 ml Output Total 0 ml Balance 862.504 ml 1248.566 ml 1053.441 ml medications Current Medications Medications Dose Ordered Sig/Rey Route Start Time Stop Time Status Last Admin Dose Admin Vancomycin HCl 0 ml @ 0 mls/hr UD IV 07/08/24 17:00 Cancel Sodium Chloride 10 ml Q8HR IV 07/09/24 06:00 07/28/24 21:52 10 ML Vasopressin 20 units/Sodium Chloride 100 ml @ 9 mls/hr Q11H7M IV 07/09/24 13:15 07/28/24 11:57 9 MLS/HR Norepinephrine Bitartrate 32 mg/ Sodium Chloride 250 ml @ 0.938 mls/ hr Q24H IV 07/09/24 15:30 07/28/24 11:58 14.063 MLS/HR Phenylephrine HCl 80 mg/Sodium Chloride 250 ml @ 7.5 mls/hr Q24H IV 07/09/24 15:45 07/28/24 23:14 33.75 MLS/HR Epinephrine HCl 250 ml @ 7.5 mls/hr Q24H IV 07/09/24 17:00 07/26/24 11:28 7.5 MLS/HR Meropenem 50 ml @ 17 mls/hr Q24H IV 07/13/24 22:00 07/28/24 21:53 17 MLS/HR Albumin Human 50 ml @ 100 mls/hr PRN PRN IV 07/13/24 08:30 Cancel Albumin Human 50 ml @ 50 mls/hr PRN PRN IV 07/13/24 08:20 07/28/24 08:10 50 MLS/HR Albuterol 2.5 mg Q6HR HHN 07/18/24 18:00 07/28/24 23:16 2.5 MG Ipratropium [place] 0.5 mg Q6HR NEB 07/18/24 18:00 07/28/24 23:16 0.5 MG Hydralazine HCl 10 mg Q4HR PRN IV 07/19/24 15:30 Hold 07/22/24 09:41 10 MG Labetalol HCl 10 mg Q2HPRN PRN IV 07/22/24 11:15 Bacitracin 1 applic DAILY TOP 07/24/24 10:00 07/25/24 10:21 1 APPLIC Amphotericin B Liposome 250 mg/ Dextrose 187.5 ml @ 93.75 mls/ hr DAILY@2100 IV 07/24/24 21:00 07/28/24 21:00 93.75 MLS/HR Acetaminophen 650 mg DAILY@2029 PO 07/24/24 20:30 07/28/24 20:34 650 MG Diphenhydramine HCl 25 mg DAILY@2030 IV 07/24/24 20:30 07/28/24 20:34 25 MG Diagnostic Test (Pha) 1 strip Q6HR 07/26/24 18:00 07/28/24 17:52 1 STRIP Insulin Human Regular FOLLOW SLIDING SCALE Q6HR SC 07/26/24 18:00 07/27/24 23:59 2 UNITS Dextrose 50 ml UD IV 07/26/24 15:45 Epoetin Justus-epbx 10,000 unit MWF@2100 SC 07/28/24 21:00 07/28/24 21:52 10,000 UNIT Midazolam HCl 50 ml @ 1 mls/hr Q24H IV 07/27/24 15:15 07/28/24 20:47 12 MLS/HR Fentanyl Citrate 250 ml @ 2.5 mls/hr Q24H IV 07/27/24 15:15 07/28/24 10:15 15 MLS/HR Amino Acids 0 ml @ 0 mls/hr PER PHARMACY IV 07/28/24 09:30 Pantoprazole Sodium 40 mg BID IV 07/28/24 10:00 07/28/24 21:52 40 MG Sodium Chloride 10 meq/Sodium Acetate 10 meq/ Multivitamins 10 ml/Amino Acids/ Dextrose 1,017.5 ml @ 43 mls/hr [id number] IV 07/28/24 22:00 07/29/24 21:59 07/28/24 21:54 43 MLS/HR Vancomycin HCl 0 ml @ 0 mls/hr UD IV 07/28/24 19:15 objective Gen.: Patient lying in bed in medical ICU. Sedated, intubated on mechanical ventilator. Head: Normocephalic, atraumatic. Eyes: PERRLA. Ears: Normal external anatomy. Throat: Endotracheal tube and orogastric tube in place. Neck: Supple, trachea midline. Chest: Transmitted breath sounds bilaterally. Decreased air entry bilaterally. No wheezing. Bibasilar crackles. Cardiovascular: Positive S1, positive S2. Regular rate and rhythm. Abdomen: Positive bowel sounds in all 4 quadrants. Soft, nontender, nondistended. : Whiting in place. Normal external genitalia. Rectal: Deferred. Skin: Warm, dry. Intact. Extremities: 2+ radial pulses bilaterally. No lower extremity edema. Neuro: Sedated. laboratory and microbiology Laboratory Tests 07/28/24 03:10 Test 07/28/24 03:10 Range/Units Serum Glucose 107 H 74-106 mg/dL Assessment/Plan Impression: Acute hypoxic respiratory failure On mechanical ventilator Pulmonary edema Necrotizing fasciitis Septic shock Morbid obesity Events: Remains on vent support On AC mode with RR 24, VT 400, PEEP 8, FiO2 50 -->40% Sedated on Versed, Fentanyl. Continue bronchodilators Continue antibiotics On multiple pressors for hemodynamic support On Wojciech-Synephrine 180 mcg/min, Levophed 26 mcg/min and vasopressin 0.02 units/min Titrate to keep MAP above 65 mmHg/SBP above 90 mmHg. Monitor hemodynamics S/p bronchoscopy yesterday (07/27/24) - cleared secretions from RUL/RLL + ASHLEY/lingula/LLL. Follow up GI recs Monitor hemoglobin Clinimix for nutritional support Monitor platelet count Head of bed elevation Aspiration precautions. Monitor WBC Wound care Recommend PT eval. HD per Nephrology Monitor renal function Monitor electrolytes. Supplement as necessary. Nephrology recommendations appreciated Awaiting family decision for goals of care. U/S Doppler of left upper extremity negative for DVT. 07/17/24 - S/p therapeutic bronchoscopy w/ RLL BAL - cleared mucous plugging from L6-L10 and R6-R10 See separate procedure note for details. Labs and imaging reviewed. Rest of plan as noted below. Plan: s/p intubation on 07/27/24 On mechanical ventilator; AC mode with RR 24, VT 400, PEEP 8, FiO2 40% Sedated on Versed, Fentanyl. On multiple pressors for hemodynamic support Titrate to keep MAP above 65 mmHg/SBP above 90 mmHg. Monitor hemodynamics Continue antibiotics. F/u cultures. Monitor renal function Monitor electrolytes. Supplement as necessary. Monitor ins and outs. GI prophylaxis. DVT prophylaxis. Prognosis: Poor given patient's multiple co-morbidities. Condition: Critical Rest of plan per hospitalist and other consultants. A total of 35 minutes of critical care time was spent reviewing the patient record, examining the patient, making a diagnostic and therapeutic plan, discussing this plan with the medical personnel, following up on diagnostic studies and following the patient for clinical stability excluding any and all procedures. At least 50% of this time was spent in direct, [id number] contact. Thank you Dr. Johnson, for allowing me to participate in this patient's care. Further recommendations will depend on the patient's clinical course. Please do not hesitate to contact me if you have any questions or concerns. This medical document was created using an electronic medical record system with [employer] dictation system. Although these documentations are being carefully reviewed, there may still be some phonetic and typographical changes. The errors are purely typographical, due to imperfection on the software program, and do not reflect any compromise in the patient's medical care. Dietary Evaluation Review Comments: 1) If GI is accessible consider Nepro 1.8 @ 20 ml/hr with current rate of propofol on board 2) If pt remains NPO >7days of NPO status, provide TPN to meet at least 75% of estimated needs 3) Advance pt diet when medically feasible to a Renal Standard diet modified per PATTERN STORAGE CLERK recommendations Expected Outcomes/Goals: 1) Pt to receive nutrition support within 7 days of NPO status 2) Pt diet to advance 3) F/U in 2-3 days Plan discussed with: Other (JACEK Deal) Critical Care Time(min): 35 EB DEJESUS MD Jul 28, 2024:44
[2024-07-29] VITALS (100 sets, daily range): BP systolic 89–165; BP diastolic 39–71; PULSE 95–121; RESP 11–29; TEMP 98.3–98.7; O2SAT 86–100
[2024-07-29 03:41] LABS: Basophils # (auto) 0 10 ^3/uL (0-0.2); Basophils % (auto) 0.3 % (0.0-2.0); Eosinophils # (auto) 0.5 10 ^3/uL (0-0.8); Hematocrit 24.9 % (41.0-53.0); Lymphocytes # (auto) 0.6 10 ^3/uL (0.4-5.4); Mean Corpuscular Hgb Conc. 31.9 g/dL (32.0-36.0)
[2024-07-29 03:43] LABS: Calcium 8.9 mg/dL (8.7-10.4); Eosinophils % (auto) 4.8 % (0.0-7.0); Lymphocytes % (auto) 5.5 % (10.0-50.0); Mean Corpuscular Hemoglobin 33.9 pg (28.0-32.0); Monocytes # (auto) 1.1 10 ^3/uL (0-1.3); Monocytes % (auto) 10.1 % (0.0-12.0); Neutrophils # (auto) 8.9 10 ^3/uL (1.6-8.6); Neutrophils % (auto) 79.3 % (37.0-80.0); Nucleated Red Blood Cells % 0.2 %; Platelet Count (auto) 36 10^3/uL (140-450); Red Blood Cells 2.35 10^6/uL (4.5-5.90); Sodium 137 mmol/L (136-145); White Blood Cell 11.2 10^3/uL (4.4-10.8)
[2024-07-29 03:44] LABS: Anion Gap 13 (5-15); Carbon Dioxide 26 mmol/L (20-31)
[2024-07-29 03:50] LABS: Magnesium 1.9 mg/dL (1.6-2.6)
[2024-07-29 03:51] LABS: BUN/Creatinine Ratio 10.7 (10.0-20.0); Phosphorus 3.5 mg/dL (2.4-5.1)
[2024-07-29 04:01] LABS: Blood Urea Nitrogen 43 mg/dL (9-23)
[2024-07-29 04:03] LABS: Chloride 98 mmol/L (98-107); Glucose 148 mg/dL (74-106); Potassium 3.4 mmol/L (3.5-5.1)
[2024-07-29 04:36] LABS: Triglycerides 244 mg/dL (< 150)
[2024-07-29 07:17] LABS: Base Excess -0.2 mmol/L (-2.0-3.0)
--- NOTE | 2024-07-29 08:38 | DVHPN2 ---
Subjective Intubated sedated Reviewed: Care Plan, H&P, Labs, Medications Changes from previous H/P or p: No Changes General: Per HPI Eyes: No Pain, No Vision change, No Conjunctivae inflammation, No Eyelid inflammation, No Other, No Redness ENT: No Ear pain, No Ear discharge, No Nose pain, No Nose discharge, No Nose congestion, No Mouth pain, No Mouth swelling, No Throat pain, No Throat swelling, No Other Cardiovascular: Chest Pain Respiratory: Cough Gastrointestinal: No Nausea, No Vomiting, No Abdominal Pain, No Diarrhea, No Constipation, No Melena, No Hematochezia, No Other Genitourinary: No Dysuria, No Frequency, No Incontinence, No Hematuria, No Retention, No Other Musculoskeletal: other, leg pain Skin: Other Objective Vitals Vital Signs Date Time Temp Pulse Resp B/P (MAP) Pulse Ox O2 Delivery O2 Flow Rate FiO2 07/29/24 07:32 100 24 112/57 (75) 100 40 07/29/24 06:00 Mechanical Ventilator+ 07/29/24 04:00 98.3 98.3 Intake/Output Intake and Output 07/29/24 07:00 Intake Total 3104.762 ml Output Total 0 ml Balance 3104.762 ml Intake Oral 60 ml IV Total 3044.762 ml Output Urine Total 0 ml Gastric Drainage Total 0 ml # Bowel Movements 1 General Appearance: Alert, Cooperative, moderate distress, Other HEENT: PERRLA Lungs: Other (Patient on BiPAP) Cardiovascular: Regular rate, Normal S1, Normal S2 Abdomen: Normal bowel sounds, Soft, No tenderness Musculoskeletal: Other (No motor movement) Neuro: Other (Unable to assess) Skin: Wounds (See nurse notes and pictures) Psych/Mental Status: Other (Unable to assess) Medications Current Medications Medications Dose Ordered Sig/Rey Route Start Time Stop Time Status Last Admin Dose Admin Vancomycin HCl 0 ml @ 0 mls/hr UD IV 07/08/24 17:00 Cancel Sodium Chloride 10 ml Q8HR IV 07/09/24 06:00 07/29/24 05:39 10 ML Vasopressin 20 units/Sodium Chloride 100 ml @ 9 mls/hr Q11H7M IV 07/09/24 13:15 07/29/24 04:05 6 MLS/HR Norepinephrine Bitartrate 32 mg/ Sodium Chloride 250 ml @ 0.938 mls/ hr Q24H IV 07/09/24 15:30 07/29/24 05:15 12.188 MLS/HR Phenylephrine HCl 80 mg/Sodium Chloride 250 ml @ 7.5 mls/hr Q24H IV 07/09/24 15:45 07/29/24 05:14 33.75 MLS/HR Epinephrine HCl 250 ml @ 7.5 mls/hr Q24H IV 07/09/24 17:00 07/26/24 11:28 7.5 MLS/HR Meropenem 50 ml @ 17 mls/hr Q24H IV 07/13/24 22:00 07/28/24 21:53 17 MLS/HR Albumin Human 50 ml @ 100 mls/hr PRN PRN IV 07/13/24 08:30 Cancel Albumin Human 50 ml @ 50 mls/hr PRN PRN IV 07/13/24 08:20 07/28/24 08:10 50 MLS/HR Albuterol 2.5 mg Q6HR HHN 07/18/24 18:00 07/29/24 05:47 2.5 MG Ipratropium [place] 0.5 mg Q6HR NEB 07/18/24 18:00 07/29/24 05:47 0.5 MG Hydralazine HCl 10 mg Q4HR PRN IV 07/19/24 15:30 Hold 07/22/24 09:41 10 MG Labetalol HCl 10 mg Q2HPRN PRN IV 07/22/24 11:15 Bacitracin 1 applic DAILY TOP 07/24/24 10:00 07/25/24 10:21 1 APPLIC Amphotericin B Liposome 250 mg/ Dextrose 187.5 ml @ 93.75 mls/ hr DAILY@2099 IV 07/24/24 21:00 07/28/24 21:00 93.75 MLS/HR Acetaminophen 650 mg DAILY@2029 PO 07/24/24 20:30 07/28/24 20:34 650 MG Diphenhydramine HCl 25 mg DAILY@2029 IV 07/24/24 20:30 07/28/24 20:34 25 MG Diagnostic Test (Pha) 1 strip Q6HR 07/26/24 18:00 07/29/24 05:39 1 STRIP Insulin Human Regular FOLLOW SLIDING SCALE Q6HR SC 07/26/24 18:00 07/28/24 23:51 2 UNITS Dextrose 50 ml UD IV 07/26/24 15:45 Epoetin Justus-epbx 10,000 unit MWF@2100 SC 07/28/24 21:00 07/28/24 21:52 10,000 UNIT Midazolam HCl 50 ml @ 1 mls/hr Q24H IV 07/27/24 15:15 07/29/24 05:14 12 MLS/HR Fentanyl Citrate 250 ml @ 2.5 mls/hr Q24H IV 07/27/24 15:15 07/29/24 01:35 15 MLS/HR Amino Acids 0 ml @ 0 mls/hr PER PHARMACY IV 07/28/24 09:30 Pantoprazole Sodium 40 mg BID IV 07/28/24 10:00 07/28/24 21:52 40 MG Sodium Chloride 10 meq/Sodium Acetate 10 meq/ Multivitamins 10 ml/Amino Acids/ Dextrose 1,017.5 ml @ 43 mls/hr [id number] IV 07/28/24 22:00 07/29/24 21:59 07/28/24 21:54 43 MLS/HR Vancomycin HCl 0 ml @ 0 mls/hr UD IV 07/28/24 19:15 Laboratory Results Laboratory Tests 07/29/24 03:00 Chemistry Test 07/29/24 03:00 Calcium Level 8.9 mg/dL (8.7-10.4) Magnesium Level 1.9 mg/dL (1.6-2.6) Phosphorus Level 3.5 mg/dL (2.4-5.1) Coagulation Test 07/28/24 20:06 Prothrombin Time 17.1 sec (9.3-11.8) H Prothrombin Time INR 1.70 (0.9-1.15) H Fibrinogen 494 mg/dL (177-375) H Lipid panel Test 07/29/24 03:00 Triglycerides Level 244 mg/dL (< 150) H Blood Gas Results Test 07/29/24 07:01 Arterial Blood pH 7.403 (7.350-7.450) FiO2 % 40.0 Microbiology Microbiology Date/Time Source Procedure Growth Status 07/27/24 16:00 Sputum Gram Stain - Final Resulted 07/27/24 16:00 Sputum Respiratory Culture - Preliminary Resulted 07/26/24 14:50 Blood Blood Culture - Preliminary NO GROWTH AFTER 48 HOURS OF INCUBATION. Resulted 07/09/24 19:55 Trachea Gram Stain - Final Complete 07/09/24 19:55 Trachea Respiratory Culture - Final Complete Labs and/or images reviewed: Labs reviewed by me, Image(s) reviewed by me Assessment/Plan Assessment/Plan Impression: -septic shock -right leg cellulitis,? Necrotizing fasciitis -ESRD with hemodialysis, previous nephrectomy -coronary artery disease with previous CABG -dilated cardiomyopathy -acute on chronic systolic and diastolic heart failure with ejection fraction 25% -morbid obesity -hypocoagulable state -thrombocytopenia -hypoalbuminemia Plan: -events: Long discussion made with the patient's daughter yesterday evening regarding plan of care and code status. She states that she will speak with her mother over the next 24 hours and decide on code status as well as decision on withdrawal of care. -continue Protonix -nephrology consultation : Managing ESRD, HD -pulmonary consultation: Continue current ventilator settings -infectious disease consultation: Continue antimicrobials per their discretion. -wound care right lower extremity -continue current sedation -PUD, DVT prophylaxis -repeat chest x-ray and labs in a.m. Critical care time spent with patient discussing and formulating plan of care: 90 minutes. This does not include time spent performing procedures. This medical document was created using an electronic medical record system with [employer] dictation system. Although this document has been carefully reviewed, there may still be some phonetic and typographical errors. These areas are purely typographical due to imperfections of the software programs, and do not reflect any compromise in the patient's medical care. Plan discussed with: Patient, Daughter, Other (RN) My Orders Orders - MAYRA CALL NP Procedure Category Date Status Time Modified Resuscitive CODE 07/28/24 Transmitted Measures Tpn Per Pharmacy PHA 07/28/24 In Process 09:30 Pantoprazole PHA 07/28/24 In Process (Protonix) 10:00 Amino Acid PHA 07/28/24 In Process Infusion... W/Sodium 22:00 Tpn Per Pharmacy EV 07/28/24 In Process 22:00 Date of Service: Jul 29, 2024 Billing Provider: MAYRA CALL NP Common Visit Codes: 73432-[id number] CARE 30-74 MIN, [id number] CARE-EACH +30MIN MAYRA CALL NP Jul 29, 2024 08:38
--- NOTE | 2024-07-29 10:23 | DVHPN2 ---
Progress Note - Dictate Date Seen: Jul 29, 2024 Has the PT tested + for MRSA If YES, has PT been informed?: No Medical Necessity Reason Pt with a Central, PICC or Fol: Yes The following are medically ne: Central Line Subjective Mr. Daniel altered gentleman with a history of hypertension, dyslipidemia, coronary artery disease, kidney cancer status post nephrectomy, kidney failure on hemodialysis, the patient was brought to the [facility]. He was reintubated on 06/26/25 I have seen and examined the patient, I have discussed with his nurse, he is slightly responsive strong painful stimuli Neosyn 180mcg/min, vasoprissin 0.02 units/min, Levo 24 mcg/min, fentanyl 150 mcg/hour, Versed 12 mg/hour Blood culture, 07/08/2024: E coli HIV & II Ab, 07/10/24: Negative ABG, 07/09/2024: Metabolic acidosis, 07/10/2024: Metabolic acidosis, WBC/HB/PLT/MCV, 07/19/2024: 13.1/9.6/65/105.9 PT/INR/PTT, 07/11/2024: 35.6/3.63/38.4, 07/08/2024: 17.4/1.73/34.2, 07/28/2024: 17.1/1.7 BUN/CR, 07/09/2024: 59/3.03 07/19/2024: 78/4.54 07/20/2024: 92/5.37 Lactic acid, 07/08/2019 5:3.1, 07/09/2024: 9.6, 07/10/24: 15.5, 07/11/2024: 449, 12.2, 07/29/2024: 43/2.02 HGB A1c, : 3.8 CPK 07/08/2019 5:114, 07/19/2024: 1579 TBI/AST/ALT/AP, once the 925, 0.6/244/561/105, 07/09/2024: 1.1/306/563/101, 07/19/2024: 12/212/261/138, 07/28/2024, 8.9/76/23/160 Hepatitis panel, : Negative TG/HDL/LDL/HDL, 07/10/2024: 364/60/5/<5 Vitamin B12, 07/19/2024: >4000 Folic acid 07/19/2024: 9.12 TSH, 07/10/2024: 0.33 EEG 07/19/2024: inadequate but likely mildly abnormal EEG Chest x-ray, 07/08/2024: Bronchovascular crowding. Underlying mild pulmonary vascular congestion can not be excluded Obscuration of the left hemidiaphragm which may be from overlying cardiac silhouette with underlying pleural effusion /atelectasis / pneumonia not excluded. Chest x-ray, 07/09/2024: 1. Left lower lobe opacity may reflect atelectasis or mild pneumonia. 2. Mild interstitial pulmonary edema. 3. Small left pleural effusion. 4. Lines and tubes as above (Endotracheal tube terminates 1.8 cm above the quin) Chest x-ray, 07/17/2024: Endotracheal tube terminates 4.8 cm from the quin. Enteric tube is overlying the plane of the stomach Chest x-ray, 07/27/2024: Cardiomegaly with pulmonary congestion. Left basilar consolidation with small effusion CT head, 07/19/2024: Atrophy. No acute intracranial pathology vital signs Vital Sign Date Time Temp Pulse Resp B/P (MAP) Pulse Ox O2 Delivery O2 Flow Rate FiO2 07/29/24 09:54 100 24 119/41 (67) 98 40 07/29/24 06:00 Mechanical Ventilator+ 07/29/24 04:00 98.3 98.3 Total Intake and Output 07/28/24 07/28/24 07/29/24 15:00 23:00 07:00 Intake Total 1050.192 ml 1122.004 ml 932.566 ml Output Total 0 ml Balance 1050.192 ml 1122.004 ml 932.566 ml medications Current Medications Medications Dose Ordered Sig/Rey Route Start Time Stop Time Status Last Admin Dose Admin Vancomycin HCl 0 ml @ 0 mls/hr UD IV 07/08/24 17:00 Cancel Sodium Chloride 10 ml Q8HR IV 07/09/24 06:00 07/29/24 05:39 10 ML Vasopressin 20 units/Sodium Chloride 100 ml @ 9 mls/hr Q11H7M IV 07/09/24 13:15 07/29/24 04:05 6 MLS/HR Norepinephrine Bitartrate 32 mg/ Sodium Chloride 250 ml @ 0.938 mls/ hr Q24H IV 07/09/24 15:30 07/29/24 05:15 12.188 MLS/HR Phenylephrine HCl 80 mg/Sodium Chloride 250 ml @ 7.5 mls/hr Q24H IV 07/09/24 15:45 07/29/24 05:14 33.75 MLS/HR Epinephrine HCl 250 ml @ 7.5 mls/hr Q24H IV 07/09/24 17:00 07/26/24 11:28 7.5 MLS/HR Meropenem 50 ml @ 17 mls/hr Q24H IV 07/13/24 22:00 07/28/24 21:53 17 MLS/HR Albumin Human 50 ml @ 100 mls/hr PRN PRN IV 07/13/24 08:30 Cancel Albumin Human 50 ml @ 50 mls/hr PRN PRN IV 07/13/24 08:20 07/28/24 08:10 50 MLS/HR Albuterol 2.5 mg Q6HR HHN 07/18/24 18:00 07/29/24 05:47 2.5 MG Ipratropium [place] 0.5 mg Q6HR NEB 07/18/24 18:00 07/29/24 05:47 0.5 MG Hydralazine HCl 10 mg Q4HR PRN IV 07/19/24 15:30 Hold 07/22/24 09:41 10 MG Labetalol HCl 10 mg Q2HPRN PRN IV 07/22/24 11:15 Bacitracin 1 applic DAILY TOP 07/24/24 10:00 07/25/24 10:21 1 APPLIC Amphotericin B Liposome 250 mg/ Dextrose 187.5 ml @ 93.75 mls/ hr DAILY@2100 IV 07/24/24 21:00 07/28/24 21:00 93.75 MLS/HR Acetaminophen 650 mg DAILY@2030 PO 07/24/24 20:30 07/28/24 20:34 650 MG Diphenhydramine HCl 25 mg DAILY@2030 IV 07/24/24 20:30 07/28/24 20:34 25 MG Diagnostic Test (Pha) 1 strip Q6HR 07/26/24 18:00 07/29/24 05:39 1 STRIP Insulin Human Regular FOLLOW SLIDING SCALE Q6HR SC 07/26/24 18:00 07/28/24 23:51 2 UNITS Dextrose 50 ml UD IV 07/26/24 15:45 Epoetin Justus-epbx 10,000 unit MWF@2100 SC 07/28/24 21:00 07/28/24 21:52 10,000 UNIT Midazolam HCl 50 ml @ 1 mls/hr Q24H IV 07/27/24 15:15 07/29/24 08:50 12 MLS/HR Fentanyl Citrate 250 ml @ 2.5 mls/hr Q24H IV 07/27/24 15:15 07/29/24 01:35 15 MLS/HR Amino Acids 0 ml @ 0 mls/hr PER PHARMACY IV 07/28/24 09:30 Pantoprazole Sodium 40 mg BID IV 07/28/24 10:00 07/28/24 21:52 40 MG Sodium Chloride 10 meq/Sodium Acetate 10 meq/ Multivitamins 10 ml/Amino Acids/ Dextrose 1,017.5 ml @ 43 mls/hr [id number] IV 07/28/24 22:00 07/29/24 21:59 07/28/24 21:54 43 MLS/HR Vancomycin HCl 0 ml @ 0 mls/hr UD IV 07/28/24 19:15 Hydrocortisone Sodium Succinate 100 mg Q8HR IV 07/29/24 14:00 UNV objective The patient is well-nourished and well-developed with no distress. The patient is intubated MENTAL STATUS: Subjective CRANIAL NERVES: Pupils are equal, round and nonreactive, small. There are corneal reflexes and doll's eyes phenomenon. No signs of facial weakness. There are gagging or coughing reflexes SENSATION: No responses to pain stimuli. MOTOR: Normal tone in the upper and lower extremity. Normal muscle bulk. No fasciculations. No spontaneous movement. REFLEXES: Deep tendon reflexes are symmetrical. No pathological reflexes. CEREBELLAR/COORDINATION: Deferred GAIT/STATION: deferred. laboratory and microbiology Laboratory Tests 07/29/24 03:00 Test 07/29/24 03:00 Range/Units Serum Glucose 148 H 74-106 mg/dL Problem List Altered mental status, Metabolic encephalopathy Hypoxic encephalopathy Toxic encephalopathy Hepatic encephalopathy Respiratory failure, reintubated Sepsis/septic shock Pneumonia Cellulitis Metabolic acidosis Coagulopathy secondary to liver failure Elevated liver function test Thrombocytopenia Macrocytic anemia Elevated liver function tests ICU myopathy Assessment/Plan Monitoring Supportive treatment ICU care MR brain scan later Stabilize vitals/pressor drip Respiratory support/vent management Oxygen Antibiotics GI prophylaxis/pantoprazole Infectious disease on case Pulmonary on case Cardiology on case Nephrology on case More recommendation per clinical course This medical document was created using an electronic medical record system with [email or web address] dictation system. Although this document has been carefully reviewed, there may still be some phonetic and typographical errors. These areas are purely typographical due to imperfections of the software programs, and do not reflect any compromise in the patient's medical care Prognosis guarded Dietary Evaluation Review Comments: 1) If GI is accessible consider Nepro 1.8 @ 20 ml/hr with current rate of propofol on board 2) If pt remains NPO >7days of NPO status, provide TPN to meet at least 75% of estimated needs 3) Advance pt diet when medically feasible to a Renal Standard diet modified per FABRIC WORKER FITTER recommendations Expected Outcomes/Goals: 1) Pt to receive nutrition support within 7 days of NPO status 2) Pt diet to advance 3) F/U in 2-3 days Plan discussed with: Other Critical Care Time(min): 30 SUMIT SANTAMARIA MD Jul 29, 2024 10:23
[2024-07-29] MEDS: HYDROCORTISONE SOD SUCC 100 MG/2ML INJ VIAL IV SCH (14:00)
[2024-07-29] MEDS: SODIUM CHL 0.9% 1000 ML BAG XX ONE (15:30)
--- NOTE | 2024-07-29 15:36 | DVHPN2 ---
Progress Note Date Seen: Jul 29, 2024 Has the PT tested + for MRSA If YES, has PT been informed?: No Medical Necessity Reason Pt with a Central, PICC or Fol: Yes The following are medically ne: Central Line Subjective Patient reports: Feels worse Review of Systems: RESPIRATORY:Abnormal Objective vital signs Vital Sign Date Time Temp Pulse Resp B/P (MAP) Pulse Ox O2 Delivery O2 Flow Rate FiO2 07/29/24 13:49 95 24 120/46 (70) 97 40 07/29/24 10:00 Mechanical Ventilator+ 07/29/24 04:00 98.3 98.3 Total Intake and Output 07/28/24 07/28/24 07/29/24 15:00 23:00 07:00 Intake Total 1050.192 ml 1122.004 ml 932.566 ml Output Total 0 ml Balance 1050.192 ml 1122.004 ml 932.566 ml medications Current Medications Medications Dose Ordered Sig/Rey Route Start Time Stop Time Status Last Admin Dose Admin Vancomycin HCl 0 ml @ 0 mls/hr UD IV 07/08/24 17:00 Cancel Sodium Chloride 10 ml Q8HR IV 07/09/24 06:00 07/29/24 14:00 10 ML Vasopressin 20 units/Sodium Chloride 100 ml @ 9 mls/hr Q11H7M IV 07/09/24 13:15 07/29/24 04:05 6 MLS/HR Norepinephrine Bitartrate 32 mg/ Sodium Chloride 250 ml @ 0.938 mls/ hr Q24H IV 07/09/24 15:30 07/29/24 05:15 12.188 MLS/HR Phenylephrine HCl 80 mg/Sodium Chloride 250 ml @ 7.5 mls/hr Q24H IV 07/09/24 15:45 07/29/24 05:14 33.75 MLS/HR Epinephrine HCl 250 ml @ 7.5 mls/hr Q24H IV 07/09/24 17:00 07/26/24 11:28 7.5 MLS/HR Meropenem 50 ml @ 17 mls/hr Q24H IV 07/13/24 22:00 07/28/24 21:53 17 MLS/HR Albumin Human 50 ml @ 100 mls/hr PRN PRN IV 07/13/24 08:30 Cancel Albumin Human 50 ml @ 50 mls/hr PRN PRN IV 07/13/24 08:20 07/28/24 08:10 50 MLS/HR Albuterol 2.5 mg Q6HR HHN 07/18/24 18:00 07/29/24 11:43 2.5 MG Ipratropium [place] 0.5 mg Q6HR NEB 07/18/24 18:00 07/29/24 11:42 0.5 MG Hydralazine HCl 10 mg Q4HR PRN IV 07/19/24 15:30 Hold 07/22/24 09:41 10 MG Labetalol HCl 10 mg Q2HPRN PRN IV 07/22/24 11:15 Bacitracin 1 applic DAILY TOP 07/24/24 10:00 07/29/24 10:00 1 APPLIC Amphotericin B Liposome 250 mg/ Dextrose 187.5 ml @ 93.75 mls/ hr DAILY@2100 IV 07/24/24 21:00 07/28/24 21:00 93.75 MLS/HR Acetaminophen 650 mg DAILY@2030 PO 07/24/24 20:30 07/28/24 20:34 650 MG Diphenhydramine HCl 25 mg DAILY@2030 IV 07/24/24 20:30 07/28/24 20:34 25 MG Diagnostic Test (Pha) 1 strip Q6HR 07/26/24 18:00 07/29/24 12:00 1 STRIP Insulin Human Regular FOLLOW SLIDING SCALE Q6HR SC 07/26/24 18:00 07/28/24 23:51 2 UNITS Dextrose 50 ml UD IV 07/26/24 15:45 Epoetin Justus-epbx 10,000 unit MWF@2100 [place] 07/28/24 21:00 07/28/24 21:52 10,000 UNIT Midazolam HCl 50 ml @ 1 mls/hr Q24H IV 07/27/24 15:15 07/29/24 13:09 12 MLS/HR Fentanyl Citrate 250 ml @ 2.5 mls/hr Q24H IV 07/27/24 15:15 07/29/24 01:35 15 MLS/HR Amino Acids 0 ml @ 0 mls/hr PER PHARMACY IV 07/28/24 09:30 Pantoprazole Sodium 40 mg BID IV 07/28/24 10:00 07/29/24 10:00 40 MG Sodium Chloride 10 meq/Sodium Acetate 10 meq/ Multivitamins 10 ml/Amino Acids/ Dextrose 1,017.5 ml @ 43 mls/hr [id number] IV 07/28/24 22:00 07/29/24 21:59 07/28/24 21:54 43 MLS/HR Vancomycin HCl 0 ml @ 0 mls/hr UD IV 07/28/24 19:15 Hydrocortisone Sodium Succinate 100 mg Q8HR IV 07/29/24 14:00 Sodium Chloride 20 meq/Potassium Chloride 10 meq/ Magnesium Sulfate 4 meq/ Multivitamins 10 ml/Amino Acids/ Dextrose 1,121 ml @ 46 mls/hr [id number] IV 07/29/24 22:00 07/30/24 21:59 Examination: GENERAL:Abnormal, LUNGS:Abnormal, ABDOMEN:Abnormal, SKIN:Abnormal laboratory and microbiology Laboratory Tests 07/29/24 03:00 Test 07/29/24 03:00 Range/Units Serum Glucose 148 H 74-106 mg/dL Microbiology Date/Time Source Procedure Growth Status 07/27/24 16:00 Sputum Gram Stain - Final Resulted 07/27/24 16:00 Sputum Respiratory Culture - Preliminary Resulted 07/26/24 14:50 Blood Blood Culture - Preliminary NO GROWTH AFTER 72 HOURS OF INCUBATION. Resulted 07/09/24 19:55 Trachea Gram Stain - Final Complete 07/09/24 19:55 Trachea Respiratory Culture - Final Complete Problem List/Assessment/Plan Problem List/Assessment/Plan ESRD on HD acute respiratory failure-> reintubated uremic acidosis / lactic acidosis septic shock with gram-negative anabella bacteremia fungal infection lower extremity wound anemia hypoglycemia hyperkalemia thrombocytopenia severe fluid overload HD treatment remains hypotensive on multiple pressors pressors to keep MAP > 65 fluid removal as tolerated Ecoli bacteremia on merrem ABX clinically unstable, prognosis is poor case discussed w/ ICU team Plan discussed with: Spouse Dietary Evaluation Review Comments: 1) If GI is accessible consider Nepro 1.8 @ 20 ml/hr with current rate of propofol on board 2) If pt remains NPO >7days of NPO status, provide TPN to meet at least 75% of estimated needs 3) Advance pt diet when medically feasible to a Renal Standard diet modified per SONAR WATCHSTANDER recommendations Expected Outcomes/Goals: 1) Pt to receive nutrition support within 7 days of NPO status 2) Pt diet to advance 3) F/U in 2-3 days Critical Care Time (mins): 33 LULU RICHARD MD Jul 29, 2024 15:36
--- NOTE | 2024-07-29 15:46 | DVHPN2 ---
Progress Note - Dictate Date Seen: Jul 29, 2024 Has the PT tested + for MRSA If YES, has PT been informed?: No Medical Necessity Reason Pt with a Central, PICC or Fol: Yes The following are medically ne: Central Line Subjective Patient was seen and evaluated in follow up in the ICU. Patient is intubated and sedated on ventilator. 40% FiO2. Patient is slightly responsive to strong painful stimuli as of today. WBC 11.2, HGB 8, HCT 24.9, K 3.4, BUN 43, ENGINE ASSEMBLY SUPERVISOR 4.02. vital signs Vital Sign Date Time Temp Pulse Resp B/P (MAP) Pulse Ox O2 Delivery O2 Flow Rate FiO2 07/29/24 11:43 95 24 120/46 (70) 97 40 07/29/24 08:00 Mechanical Ventilator+ 07/29/24 04:00 98.3 98.3 Total Intake and Output 07/28/24 07/28/24 07/29/24 15:00 23:00 07:00 Intake Total 1050.192 ml 1122.004 ml 932.566 ml Output Total 0 ml Balance 1050.192 ml 1122.004 ml 932.566 ml medications Current Medications Medications Dose Ordered Sig/Rey Route Start Time Stop Time Status Last Admin Dose Admin Vancomycin HCl 0 ml @ 0 mls/hr UD IV 07/08/24 17:00 Cancel Sodium Chloride 10 ml Q8HR IV 07/09/24 06:00 07/29/24 05:39 10 ML Vasopressin 20 units/Sodium Chloride 100 ml @ 9 mls/hr Q11H7M IV 07/09/24 13:15 07/29/24 04:05 6 MLS/HR Norepinephrine Bitartrate 32 mg/ Sodium Chloride 250 ml @ 0.938 mls/ hr Q24H IV 07/09/24 15:30 07/29/24 05:15 12.188 MLS/HR Phenylephrine HCl 80 mg/Sodium Chloride 250 ml @ 7.5 mls/hr Q24H IV 07/09/24 15:45 07/29/24 05:14 33.75 MLS/HR Epinephrine HCl 250 ml @ 7.5 mls/hr Q24H IV 07/09/24 17:00 07/26/24 11:28 7.5 MLS/HR Meropenem 50 ml @ 17 mls/hr Q24H IV 07/13/24 22:00 07/28/24 21:53 17 MLS/HR Albumin Human 50 ml @ 100 mls/hr PRN PRN IV 07/13/24 08:30 Cancel Albumin Human 50 ml @ 50 mls/hr PRN PRN IV 07/13/24 08:20 07/28/24 08:10 50 MLS/HR Albuterol 2.5 mg Q6HR HHN 07/18/24 18:00 07/29/24 11:43 2.5 MG Ipratropium [place] 0.5 mg Q6HR NEB 07/18/24 18:00 07/29/24 11:42 0.5 MG Hydralazine HCl 10 mg Q4HR PRN IV 07/19/24 15:30 Hold 07/22/24 09:41 10 MG Labetalol HCl 10 mg Q2HPRN PRN IV 07/22/24 11:15 Bacitracin 1 applic DAILY TOP 07/24/24 10:00 07/29/24 10:00 1 APPLIC Amphotericin B Liposome 250 mg/ Dextrose 187.5 ml @ 93.75 mls/ hr DAILY@2100 IV 07/24/24 21:00 07/28/24 21:00 93.75 MLS/HR Acetaminophen 650 mg DAILY@2029 PO 07/24/24 20:30 07/28/24 20:34 650 MG Diphenhydramine HCl 25 mg DAILY@2030 IV 07/24/24 20:30 07/28/24 20:34 25 MG Diagnostic Test (Pha) 1 strip Q6HR 07/26/24 18:00 07/29/24 05:39 1 STRIP Insulin Human Regular FOLLOW SLIDING SCALE Q6HR SC 07/26/24 18:00 07/28/24 23:51 2 UNITS Dextrose 50 ml UD IV 07/26/24 15:45 Epoetin Justus-epbx 10,000 unit MWF@2100 SC 07/28/24 21:00 07/28/24 21:52 10,000 UNIT Midazolam HCl 50 ml @ 1 mls/hr Q24H IV 07/27/24 15:15 07/29/24 08:50 12 MLS/HR Fentanyl Citrate 250 ml @ 2.5 mls/hr Q24H IV 07/27/24 15:15 07/29/24 01:35 15 MLS/HR Amino Acids 0 ml @ 0 mls/hr PER PHARMACY IV 07/28/24 09:30 Pantoprazole Sodium 40 mg BID IV 07/28/24 10:00 07/29/24 10:00 40 MG Sodium Chloride 10 meq/Sodium Acetate 10 meq/ Multivitamins 10 ml/Amino Acids/ Dextrose 1,017.5 ml @ 43 mls/hr [id number] IV 07/28/24 22:00 07/29/24 21:59 07/28/24 21:54 43 MLS/HR Vancomycin HCl 0 ml @ 0 mls/hr UD IV 07/28/24 19:15 Hydrocortisone Sodium Succinate 100 mg Q8HR IV 07/29/24 14:00 Sodium Chloride 20 meq/Potassium Chloride 10 meq/ Magnesium Sulfate 4 meq/ Multivitamins 10 ml/Amino Acids/ Dextrose 1,121 ml @ 46 mls/hr [id number] IV 07/29/24 22:00 07/30/24 21:59 objective GENERAL: Intubated on ventilator. Morbidly obese. LUNGS: Decreased breath sounds. CARDIOVASCULAR: Heart sounds are good. ABDOMEN: Soft. EXT: BLE edema. laboratory and microbiology Laboratory Tests 07/29/24 03:00 Test 07/29/24 03:00 Range/Units Serum Glucose 148 H 74-106 mg/dL Problem List Hypotension secondary to septic shock. Coronary artery disease status post CABG in 2021. History of hypertension. Hyperlipidemia. Hyperkalemia. Acute anemia. Thrombocytopenia. Transaminitis. End-stage renal disease on hemodialysis. Renal cell carcinoma status post left nephrectomy. COPD. Asthma. Morbid obesity. Dilated cardiomyopathy. Metabolic encephalopathy. Assessment/Plan Continued all current supportive medical care. GI prophylactics. IV antibiotics as ordered. Vasopressors for hemodynamic support. Additional plan as per the hospital course. Critical care time of 45 minutes provided to include time spent evaluation of patient at bedside, when appropriate patient/family education for diagnosis, treatment plan, review of pertinent medical information and discussion of care with specialty providers and PCP. Mechanical ventilator parameters, treatment and adjustments have personally been reviewed by me and treatment plan by tibco developer has also been reviewed. Dietary Evaluation Review Comments: 1) If GI is accessible consider Nepro 1.8 @ 20 ml/hr with current rate of propofol on board 2) If pt remains NPO >7days of NPO status, provide TPN to meet at least 75% of estimated needs 3) Advance pt diet when medically feasible to a Renal Standard diet modified per CIRCUITRY NEGATIVE INSPECTOR recommendations Expected Outcomes/Goals: 1) Pt to receive nutrition support within 7 days of NPO status 2) Pt diet to advance 3) F/U in 2-3 days Plan discussed with: Other FRIDA SIMMONS MD Jul 29, 2024 11:55
[2024-07-29] MEDS: CEFIDEROCOL 0.75 GM in SODIUM CHL 0.9% 100 ML IV SCH (21:19)
--- NOTE | 2024-07-29 21:20 | DVHPN2 ---
Progress Note - Dictate Date Seen: Jul 29, 2024 Has the PT tested + for MRSA If YES, has PT been informed?: No Medical Necessity Reason Pt with a Central, PICC or Fol: Yes The following are medically ne: Central Line Subjective Patient is intubated and sedated Remains hypotensive on multiple pressors Leukocytosis is improving , hemoglobin stable at 8.0 liver enzymes are trending down and lactic acid is normalized NG tube output is minimal with the old bile mixed with some blood but no active bleeding vital signs Vital Sign Date Time Temp Pulse Resp B/P (MAP) Pulse Ox O2 Delivery O2 Flow Rate FiO2 07/29/24 20:30 116 22 111/51 (71) 100 07/29/24 20:26 40 07/29/24 20:00 Mechanical Ventilator+ 07/29/24 20:00 98.7 98.7 Total Intake and Output 07/28/24 07/28/24 07/29/24 15:00 23:00 07:00 Intake Total 1050.192 ml 1122.004 ml 1054.496 ml Output Total 0 ml Balance 1050.192 ml 1122.004 ml 1054.496 ml medications Current Medications Medications Dose Ordered Sig/Rey Route Start Time Stop Time Status Last Admin Dose Admin Vancomycin HCl 0 ml @ 0 mls/hr UD IV 07/08/24 17:00 Cancel Sodium Chloride 10 ml Q8HR IV 07/09/24 06:00 07/29/24 14:00 10 ML Vasopressin 20 units/Sodium Chloride 100 ml @ 9 mls/hr Q11H7M IV 07/09/24 13:15 07/29/24 20:25 6 MLS/HR Norepinephrine Bitartrate 32 mg/ Sodium Chloride 250 ml @ 0.938 mls/ hr Q24H IV 07/09/24 15:30 07/29/24 20:00 13.125 MLS/HR Phenylephrine HCl 80 mg/Sodium Chloride 250 ml @ 7.5 mls/hr Q24H IV 07/09/24 15:45 07/29/24 20:00 33.75 MLS/HR Epinephrine HCl 250 ml @ 7.5 mls/hr Q24H IV 07/09/24 17:00 07/26/24 11:28 7.5 MLS/HR Albumin Human 50 ml @ 100 mls/hr PRN PRN IV 07/13/24 08:30 Cancel Albumin Human 50 ml @ 50 mls/hr PRN PRN IV 07/13/24 08:20 07/28/24 08:10 50 MLS/HR Albuterol 2.5 mg Q6HR HHN 07/18/24 18:00 07/29/24 18:48 2.5 MG Ipratropium [place] 0.5 mg Q6HR NEB 07/18/24 18:00 07/29/24 18:46 0.5 MG Hydralazine HCl 10 mg Q4HR PRN IV 07/19/24 15:30 Hold 07/22/24 09:41 10 MG Labetalol HCl 10 mg Q2HPRN PRN IV 07/22/24 11:15 Bacitracin 1 applic DAILY TOP 07/24/24 10:00 07/29/24 10:00 1 APPLIC Amphotericin B Liposome 250 mg/ Dextrose 187.5 ml @ 93.75 mls/ hr DAILY@2100 IV 07/24/24 21:00 07/28/24 21:00 93.75 MLS/HR Acetaminophen 650 mg DAILY@2030 PO 07/24/24 20:30 07/29/24 21:11 650 MG Diphenhydramine HCl 25 mg DAILY@2030 IV 07/24/24 20:30 07/29/24 21:11 25 MG Diagnostic Test (Pha) 1 strip Q6HR 07/26/24 18:00 07/29/24 18:00 1 STRIP Insulin Human Regular FOLLOW SLIDING SCALE Q6HR SC 07/26/24 18:00 07/28/24 23:51 2 UNITS Dextrose 50 ml UD IV 07/26/24 15:45 Epoetin Justus-epbx 10,000 unit MWF@2100 [place] 07/28/24 21:00 07/28/24 21:52 10,000 UNIT Midazolam HCl 50 ml @ 1 mls/hr Q24H IV 07/27/24 15:15 07/29/24 13:09 12 MLS/HR Fentanyl Citrate 250 ml @ 2.5 mls/hr Q24H IV 07/27/24 15:15 07/29/24 01:35 15 MLS/HR Amino Acids 0 ml @ 0 mls/hr PER PHARMACY IV 07/28/24 09:30 Pantoprazole Sodium 40 mg BID IV 07/28/24 10:00 07/29/24 10:00 40 MG Sodium Chloride 10 meq/Sodium Acetate 10 meq/ Multivitamins 10 ml/Amino Acids/ Dextrose 1,017.5 ml @ 43 mls/hr [id number] IV 07/28/24 22:00 07/29/24 21:59 07/28/24 21:54 43 MLS/HR Vancomycin HCl 0 ml @ 0 mls/hr UD IV 07/28/24 19:15 Hydrocortisone Sodium Succinate 100 mg Q8HR IV 07/29/24 14:00 07/29/24 14:00 100 MG Sodium Chloride 20 meq/Potassium Chloride 10 meq/ Magnesium Sulfate 4 meq/ Multivitamins 10 ml/Amino Acids/ Dextrose 1,121 ml @ 46 mls/hr [id number] IV 07/29/24 22:00 07/30/24 21:59 Cefiderocol 0.75 gm/Sodium Chloride 100 ml @ 33.333 mls/ hr Q12H IV 07/29/24 21:00 objective GENERAL: Intubated on ventilator. obese. NG output bilious LUNGS: Decreased breath sounds. CARDIOVASCULAR: Heart sounds are good. ABDOMEN: Soft. Nontender EXT: BLE edema. laboratory and microbiology Laboratory Tests 07/29/24 03:00 Test 07/29/24 03:00 Range/Units Serum Glucose 148 H 74-106 mg/dL Problems(with codes): (1) E coli bacteremia (2) Jaundice (3) Coffee ground emesis (4) Necrotizing fasciitis of lower leg (5) Elevated liver enzymes (6) End-stage renal disease on hemodialysis (7) Acute kidney failure, unspecified (8) Generalized weakness Prognosis Assessment and plan Acute respiratory failure-> reintubated uremic acidosis / lactic acidosis septic shock with E Coli bacteremia fungal infection lower extremity wound Macrocytic anemia hypoglycemia hyperkalemia thrombocytopenia severe fluid overload HD treatment pressors to keep MAP > 65 fluid removal as tolerated Ecoli bacteremia on meropenem clinically unstable, prognosis is poor case discussed w/ ICU nurse Transfuse 1 UPRBC IV PPI Monitor labs Dietary Evaluation Review Comments: 1) If GI is accessible consider Nepro 1.8 @ 20 ml/hr with current rate of propofol on board 2) If pt remains NPO >7days of NPO status, provide TPN to meet at least 75% of estimated needs 3) Advance pt diet when medically feasible to a Renal Standard diet modified per FORGE HAND recommendations Expected Outcomes/Goals: 1) Pt to receive nutrition support within 7 days of NPO status 2) Pt diet to advance 3) F/U in 2-3 days Plan discussed with: Other (ICU Nurse) VIVIANA SHI MD Jul 29, 2024 21:20
[2024-07-29] MEDS: TPN PER PHARMACY IV NR (22:02)
--- NOTE | 2024-07-29 23:09 | DVHPN2 ---
Progress Note - Dictate Date Seen: Jul 29, 2024 Has the PT tested + for MRSA If YES, has PT been informed?: No Medical Necessity Reason Pt with a Central, PICC or Fol: Yes The following are medically ne: Central Line Subjective Patient seen and examined at bedside. Sedated, intubated on mechanical ventilator. Overnight events reviewed. vital signs Vital Sign Date Time Temp Pulse Resp B/P (MAP) Pulse Ox O2 Delivery O2 Flow Rate FiO2 07/29/24 23:00 120 13 140/59 (86) 100 154/66 (95) 07/29/24 22:11 40 07/29/24 22:00 Mechanical Ventilator+ 07/29/24 20:00 98.7 98.7 Total Intake and Output 07/28/24 07/28/24 07/29/24 15:00 23:00 07:00 Intake Total 1050.192 ml 1122.004 ml 1054.496 ml Output Total 0 ml Balance 1050.192 ml 1122.004 ml 1054.496 ml medications Current Medications Medications Dose Ordered Sig/Rey Route Start Time Stop Time Status Last Admin Dose Admin Vancomycin HCl 0 ml @ 0 mls/hr UD IV 07/08/24 17:00 Cancel Sodium Chloride 10 ml Q8HR IV 07/09/24 06:00 07/29/24 22:01 10 ML Vasopressin 20 units/Sodium Chloride 100 ml @ 9 mls/hr Q11H7M IV 07/09/24 13:15 07/29/24 20:25 6 MLS/HR Norepinephrine Bitartrate 32 mg/ Sodium Chloride 250 ml @ 0.938 mls/ hr Q24H IV 07/09/24 15:30 07/29/24 20:00 13.125 MLS/HR Phenylephrine HCl 80 mg/Sodium Chloride 250 ml @ 7.5 mls/hr Q24H IV 07/09/24 15:45 07/29/24 20:00 33.75 MLS/HR Epinephrine HCl 250 ml @ 7.5 mls/hr Q24H IV 07/09/24 17:00 07/26/24 11:28 7.5 MLS/HR Albumin Human 50 ml @ 100 mls/hr PRN PRN IV 07/13/24 08:30 Cancel Albumin Human 50 ml @ 50 mls/hr PRN PRN IV 07/13/24 08:20 07/28/24 08:10 50 MLS/HR Albuterol 2.5 mg Q6HR HHN 07/18/24 18:00 07/29/24 18:48 2.5 MG Ipratropium [place] 0.5 mg Q6HR NEB 07/18/24 18:00 07/29/24 18:46 0.5 MG Hydralazine HCl 10 mg Q4HR PRN IV 07/19/24 15:30 Hold 07/22/24 09:41 10 MG Labetalol HCl 10 mg Q2HPRN PRN IV 07/22/24 11:15 Bacitracin 1 applic DAILY TOP 07/24/24 10:00 07/29/24 10:00 1 APPLIC Amphotericin B Liposome 250 mg/ Dextrose 187.5 ml @ 93.75 mls/ hr DAILY@2100 IV 07/24/24 21:00 07/29/24 21:19 93.75 MLS/HR Acetaminophen 650 mg DAILY@2029 PO 07/24/24 20:30 07/29/24 21:11 650 MG Diphenhydramine HCl 25 mg DAILY@2029 IV 07/24/24 20:30 07/29/24 21:11 25 MG Diagnostic Test (Pha) 1 strip Q6HR 07/26/24 18:00 07/29/24 18:00 1 STRIP Insulin Human Regular FOLLOW SLIDING SCALE Q6HR NH 07/26/24 18:00 07/28/24 23:51 2 UNITS Dextrose 50 ml UD IV 07/26/24 15:45 Epoetin Justus-epbx 10,000 unit MWF@2100 NH 07/28/24 21:00 07/28/24 21:52 10,000 UNIT Midazolam HCl 50 ml @ 1 mls/hr Q24H IV 07/27/24 15:15 07/29/24 21:34 12 MLS/HR Fentanyl Citrate 250 ml @ 2.5 mls/hr Q24H IV 07/27/24 15:15 07/29/24 01:35 15 MLS/HR Amino Acids 0 ml @ 0 mls/hr PER PHARMACY IV 07/28/24 09:30 Pantoprazole Sodium 40 mg BID IV 07/28/24 10:00 07/29/24 22:00 40 MG Vancomycin HCl 0 ml @ 0 mls/hr UD IV 07/28/24 19:15 Hydrocortisone Sodium Succinate 100 mg Q8HR IV 07/29/24 14:00 07/29/24 22:00 100 MG Sodium Chloride 20 meq/Potassium Chloride 10 meq/ Magnesium Sulfate 4 meq/ Multivitamins 10 ml/Amino Acids/ Dextrose 1,121 ml @ 46 mls/hr Q26P55R IV 07/29/24 22:00 07/30/24 21:59 07/29/24 22:02 46 MLS/HR Cefiderocol 0.75 gm/Sodium Chloride 100 ml @ 33.333 mls/ hr Q12H IV 07/29/24 21:00 07/29/24 21:19 33.333 MLS/HR objective Gen.: Patient lying in bed in medical ICU. Sedated, intubated on mechanical ventilator. Head: Normocephalic, atraumatic. Eyes: PERRLA. Ears: Normal external anatomy. Throat: Endotracheal tube and orogastric tube in place. Neck: Supple, trachea midline. Chest: Transmitted breath sounds bilaterally. Decreased air entry bilaterally. No wheezing. Bibasilar crackles. Cardiovascular: Positive S1, positive S2. Regular rate and rhythm. Abdomen: Positive bowel sounds in all 4 quadrants. Soft, nontender, nondistended. : Whiting in place. Normal external genitalia. Rectal: Deferred. Skin: Warm, dry. Intact. Extremities: 2+ radial pulses bilaterally. No lower extremity edema. Neuro: Sedated. laboratory and microbiology Laboratory Tests 07/29/24 03:00 Test 07/29/24 03:00 Range/Units Serum Glucose 148 H 74-106 mg/dL Assessment/Plan Impression: Acute hypoxic respiratory failure On mechanical ventilator Pulmonary edema Necrotizing fasciitis Septic shock Morbid obesity Events: Remains on vent support On AC mode with RR 24, VT 400, PEEP 8, FiO2 40% Sedated on Versed, Fentanyl. Continue bronchodilators Continue antibiotics Started stress-dose steroids On multiple pressors for hemodynamic support On Wojciech-Synephrine 180 mcg/min, Levophed 26 mcg/min and vasopressin 0.02 units/min Titrate to keep MAP above 65 mmHg/SBP above 90 mmHg. Monitor hemodynamics S/p bronchoscopy 07/27/24 - cleared secretions from RUL/RLL + ASHLEY/lingula/LLL. Follow up GI recs Monitor hemoglobin Clinimix for nutritional support Monitor hemoglobin Monitor platelet count Head of bed elevation Aspiration precautions. Monitor WBC Wound care Recommend PT eval. HD per Nephrology Monitor renal function Monitor electrolytes. Supplement as necessary. Nephrology recommendations appreciated Awaiting family decision on goals of care. U/S Doppler of left upper extremity negative for DVT. 07/17/24 - S/p therapeutic bronchoscopy w/ RLL BAL - cleared mucous plugging from L6-L10 and R6-R10 See separate procedure note for details. Labs and imaging reviewed. Rest of plan as noted below. Plan: s/p intubation on 07/27/24 On mechanical ventilator; AC mode with RR 24, VT 400, PEEP 8, FiO2 40% Sedated on Versed, Fentanyl. On multiple pressors for hemodynamic support Titrate to keep MAP above 65 mmHg/SBP above 90 mmHg. Monitor hemodynamics Continue antibiotics. F/u cultures. Monitor renal function Monitor electrolytes. Supplement as necessary. Monitor ins and outs. GI prophylaxis. DVT prophylaxis. Prognosis: Poor given patient's multiple co-morbidities. Condition: Critical Rest of plan per hospitalist and other consultants. A total of 35 minutes of critical care time was spent reviewing the patient record, examining the patient, making a diagnostic and therapeutic plan, discussing this plan with the medical personnel, following up on diagnostic studies and following the patient for clinical stability excluding any and all procedures. At least 50% of this time was spent in direct, arip-ej-doaf contact. Thank you Dr. Johnson, for allowing me to participate in this patient's care. Further recommendations will depend on the patient's clinical course. Please do not hesitate to contact me if you have any questions or concerns. This medical document was created using an electronic medical record system with [employer] dictation system. Although these documentations are being carefully reviewed, there may still be some phonetic and typographical changes. The errors are purely typographical, due to imperfection on the software program, and do not reflect any compromise in the patient's medical care. Dietary Evaluation Review Comments: 1) If GI is accessible consider Nepro 1.8 @ 20 ml/hr with current rate of propofol on board 2) If pt remains NPO >7days of NPO status, provide TPN to meet at least 75% of estimated needs 3) Advance pt diet when medically feasible to a Renal Standard diet modified per [employer] recommendations Expected Outcomes/Goals: 1) Pt to receive nutrition support within 7 days of NPO status 2) Pt diet to advance 3) F/U in 2-3 days Plan discussed with: Other (RN Ty) Critical Care Time(min): 35 EB DEJESUS MD Jul 29, 2024 23:09
[2024-07-30] VITALS (111 sets, daily range): BP systolic 99–173; BP diastolic 38–83; PULSE 86–121; RESP 9–28; TEMP 97.6–99.7; O2SAT 95–100
[2024-07-30 04:18] LABS: Alanine Aminotransferase 19 U/L (7-40); Albumin 3.4 g/dL (3.2-4.8); Anion Gap 12 (5-15); Aspartate Aminotransferase 37 U/L (13-40); Carbon Dioxide 27 mmol/L (20-31); Chloride 98 mmol/L (98-107); Magnesium 1.9 mg/dL (1.6-2.6); Sodium 137 mmol/L (136-145)
[2024-07-30 04:19] LABS: Phosphorus 2.8 mg/dL (2.4-5.1)
[2024-07-30 04:24] LABS: Alkaline Phosphatase 118 U/L (46-116); Bilirubin, Total 10.3 mg/dL (0.2-1.0); Blood Urea Nitrogen 35 mg/dL (9-23); Calcium 8.6 mg/dL (8.7-10.4); Glucose 226 mg/dL (74-106); Potassium 3.4 mmol/L (3.5-5.1)
[2024-07-30 08:13] LABS: Base Excess -1.4 mmol/L (-2.0-3.0)
--- NOTE | 2024-07-30 10:10 | DVHPN2 ---
Subjective Intubated sedated Reviewed: Care Plan, H&P, Labs, Medications Changes from previous H/P or p: No Changes General: Per HPI Eyes: No Pain, No Vision change, No Conjunctivae inflammation, No Eyelid inflammation, No Other, No Redness ENT: No Ear pain, No Ear discharge, No Nose pain, No Nose discharge, No Nose congestion, No Mouth pain, No Mouth swelling, No Throat pain, No Throat swelling, No Other Cardiovascular: Chest Pain Respiratory: Cough Gastrointestinal: No Nausea, No Vomiting, No Abdominal Pain, No Diarrhea, No Constipation, No Melena, No Hematochezia, No Other Genitourinary: No Dysuria, No Frequency, No Incontinence, No Hematuria, No Retention, No Other Musculoskeletal: other, leg pain Skin: Other Objective Vitals Vital Signs Date Time Temp Pulse Resp B/P (MAP) Pulse Ox O2 Delivery O2 Flow Rate FiO2 07/30/24 10:00 24 100 Mechanical Ventilator+ 40 40 07/30/24 10:00 96 07/30/24 09:45 119/56 (77) 07/30/24 08:00 98.3 98.3 Intake/Output Intake and Output 07/30/24 07:00 Intake Total 3002.825 ml Output Total 0 ml Balance 3002.825 ml Intake Oral 50 ml IV Total 2952.825 ml Output Urine Total 0 ml # Bowel Movements 1 General Appearance: Alert, moderate distress, Other HEENT: PERRLA Lungs: Other (Patient on BiPAP) Cardiovascular: Regular rate, Normal S1, Normal S2 Abdomen: Normal bowel sounds, Soft, No tenderness Musculoskeletal: Other (No motor movement) Neuro: Other (Unable to assess) Skin: Wounds (See nurse notes and pictures) Psych/Mental Status: Other (Unable to assess) Medications Current Medications Medications Dose Ordered Sig/Rey Route Start Time Stop Time Status Last Admin Dose Admin Vancomycin HCl 0 ml @ 0 mls/hr UD IV 07/08/24 17:00 Cancel Sodium Chloride 10 ml Q8HR IV 07/09/24 06:00 07/30/24 06:06 10 ML Vasopressin 20 units/Sodium Chloride 100 ml @ 9 mls/hr Q11H7M IV 07/09/24 13:15 07/29/24 20:25 6 MLS/HR Norepinephrine Bitartrate 32 mg/ Sodium Chloride 250 ml @ 0.938 mls/ hr Q24H IV 07/09/24 15:30 07/29/24 20:00 13.125 MLS/HR Phenylephrine HCl 80 mg/Sodium Chloride 250 ml @ 7.5 mls/hr Q24H IV 07/09/24 15:45 07/30/24 09:00 29.063 MLS/HR Epinephrine HCl 250 ml @ 7.5 mls/hr Q24H IV 07/09/24 17:00 07/26/24 11:28 7.5 MLS/HR Albumin Human 50 ml @ 100 mls/hr PRN PRN IV 07/13/24 08:30 Cancel Albumin Human 50 ml @ 50 mls/hr PRN PRN IV 07/13/24 08:20 07/28/24 08:10 50 MLS/HR Albuterol 2.5 mg Q6HR HHN 07/18/24 18:00 07/30/24 06:50 2.5 MG Ipratropium [place] 0.5 mg Q6HR NEB 07/18/24 18:00 07/30/24 06:50 0.5 MG Hydralazine HCl 10 mg Q4HR PRN IV 07/19/24 15:30 Hold 07/22/24 09:41 10 MG Labetalol HCl 10 mg Q2HPRN PRN IV 07/22/24 11:15 Bacitracin 1 applic DAILY TOP 07/24/24 10:00 07/30/24 08:56 1 APPLIC Amphotericin B Liposome 250 mg/ Dextrose 187.5 ml @ 93.75 mls/ hr DAILY@2100 IV 07/24/24 21:00 07/29/24 21:19 93.75 MLS/HR Acetaminophen 650 mg DAILY@2030 PO 07/24/24 20:30 07/29/24 21:11 650 MG Diphenhydramine HCl 25 mg DAILY@2030 IV 07/24/24 20:30 07/29/24 21:11 25 MG Diagnostic Test (Pha) 1 strip Q6HR 07/26/24 18:00 07/30/24 06:06 1 STRIP Insulin Human Regular FOLLOW SLIDING SCALE Q6HR SC 07/26/24 18:00 07/30/24 06:08 8 UNITS Dextrose 50 ml UD IV 07/26/24 15:45 Epoetin Just[place]-epbx 10,000 unit MWF@2100 SC 07/28/24 21:00 07/28/24 21:52 10,000 UNIT Midazolam HCl 50 ml @ 1 mls/hr Q24H IV 07/27/24 15:15 07/30/24 08:57 12 MLS/HR Fentanyl Citrate 250 ml @ 2.5 mls/hr Q24H IV 07/27/24 15:15 07/30/24 09:01 15 MLS/HR Amino Acids 0 ml @ 0 mls/hr PER PHARMACY IV 07/28/24 09:30 Pantoprazole Sodium 40 mg BID IV 07/28/24 10:00 07/30/24 08:55 40 MG Vancomycin HCl 0 ml @ 0 mls/hr UD IV 07/28/24 19:15 Hydrocortisone Sodium Succinate 100 mg Q8HR IV 07/29/24 14:00 07/30/24 06:10 100 MG Sodium Chloride 20 meq/Potassium Chloride 10 meq/ Magnesium Sulfate 4 meq/ Multivitamins 10 ml/Amino Acids/ Dextrose 1,121 ml @ 46 mls/hr [id number] IV 07/29/24 22:00 07/30/24 21:59 07/29/24 22:02 46 MLS/HR Cefiderocol 0.75 gm/Sodium Chloride 100 ml @ 33.333 mls/ hr Q12H IV 07/29/24 21:00 07/30/24 08:54 33.333 MLS/HR Laboratory Results Laboratory Tests 07/29/24 03:00 07/30/24 03:22 Chemistry Test 07/30/24 03:22 Albumin 3.4 g/dL (3.2-4.8) Calcium Level 8.6 mg/dL (8.7-10.4) L Magnesium Level 1.9 mg/dL (1.6-2.6) Phosphorus Level 2.8 mg/dL (2.4-5.1) Total Protein 6.0 g/dL (5.7-8.2) LFT Test 07/30/24 03:22 Alanine Aminotransferase (ALT) 19 U/L (7-40) Alkaline Phosphatase 118 U/L (46-116) H Aspartate Amino Transferase (AST) 37 U/L (13-40) Total Bilirubin 10.3 mg/dL (0.2-1.0) H Blood Gas Results Test 07/30/24 07:50 Arterial Blood pH 7.399 (7.350-7.450) FiO2 % 40.0 Microbiology Microbiology Date/Time Source Procedure Growth Status 07/27/24 16:00 Sputum Gram Stain - Final Resulted 07/27/24 16:00 Sputum Respiratory Culture - Preliminary Resulted 07/26/24 14:50 Blood Blood Culture - Preliminary NO GROWTH AFTER 72 HOURS OF INCUBATION. Resulted 07/09/24 19:55 Trachea Gram Stain - Final Complete 07/09/24 19:55 Trachea Respiratory Culture - Final Complete Labs and/or images reviewed: Labs reviewed by me, Image(s) reviewed by me Assessment/Plan Assessment/Plan Impression: -septic shock -right leg cellulitis,? Necrotizing fasciitis -ESRD with hemodialysis, previous nephrectomy -coronary artery disease with previous CABG -dilated cardiomyopathy -acute on chronic systolic and diastolic heart failure with ejection fraction 25% -morbid obesity -hypocoagulable state -thrombocytopenia -hypoalbuminemia Plan: -events: Patient on decrease vasopressor therapy. White blood cell count improving. Continue current treatment plan. Will discuss with family that patient was making improvements. -continue Protonix -nephrology consultation : Managing ESRD, HD -pulmonary consultation: Continue current ventilator settings -infectious disease consultation: Continue antimicrobials per their discretion. -wound care right lower extremity -continue current sedation -PUD, DVT prophylaxis -repeat chest x-ray and labs in a.m. Critical care time spent with patient discussing and formulating plan of care: 90 minutes. This does not include time spent performing procedures. This medical document was created using an electronic medical record system with J[employer]cha dictation system. Although this document has been carefully reviewed, there may still be some phonetic and typographical errors. These areas are purely typographical due to imperfections of the software programs, and do not reflect any compromise in the patient's medical care. Plan discussed with: Patient, Other (RN) My Orders Orders - MAYRA CALL NP Procedure Category Date Status Time Amino Acid PHA 07/29/24 In Process Infusion... W/Sodium 22:00 Tpn Per Pharmacy EV 07/29/24 In Process 22:00 Complete Blood Count LAB 07/31/24 Verified 05:00 Complete Blood Count LAB 08/01/24 Verified 05:00 Complete Blood Count LAB 08/02/24 Verified 05:00 Complete Blood Count LAB 08/03/24 Verified 05:00 Complete Blood Count LAB 08/04/24 Verified 05:00 Basic Metabolic Panel LAB 07/31/24 Verified 04:00 Chest Portable XY 07/31/24 Logged 05:00 Chest Portable XY 08/01/24 Logged 05:00 Chest Portable XY 08/02/24 Logged 05:00 Chest Portable XY 08/03/24 Logged 05:00 Chest Portable XY 08/04/24 Logged 05:00 Abg W/ Co-Ox RT 07/31/24 Logged 04:00 Date of Service: Jul 30, 2024 Billing Provider: MAYRA CALL NP Common Visit Codes: [id number] CARE 30-74 MIN MAYRA CALL NP Jul 30, 2024 10:10
--- NOTE | 2024-07-30 11:18 | DVHPN2 ---
Progress Note Date Seen: Jul 30, 2024 Resident Creating Document: SUTLANA GARCIA RESIDENT Has the PT tested + for MRSA If YES, has PT been informed?: No Medical Necessity Reason Pt with a Central, PICC or Fol: Yes The following are medically ne: Central Line Subjective Review of Systems Patient seen and examined at the bedside. Hemoglobin 6.8, platelets 24. One packed RBC and 1 platelets unit ordered NG to LIS On 2 pressors Overnight had 2 bowel movements, which were dark Objective vital signs Vital Sign Date Time Temp Pulse Resp B/P (MAP) Pulse Ox O2 Delivery O2 Flow Rate FiO2 07/30/24 10:12 95 26 124/58 (80) 100 35 07/30/24 10:00 Mechanical Ventilator+ 07/30/24 08:00 98.3 98.3 Total Intake and Output 07/29/24 07/29/24 07/30/24 15:00 23:00 07:00 Intake Total 975.44 ml 1010.409 ml 1016.976 ml Output Total 0 ml Balance 975.44 ml 1010.409 ml 1016.976 ml medications Current Medications Medications Dose Ordered Sig/Rey Route Start Time Stop Time Status Last Admin Dose Admin Vancomycin HCl 0 ml @ 0 mls/hr UD IV 07/08/24 17:00 Cancel Sodium Chloride 10 ml Q8HR IV 07/09/24 06:00 07/30/24 06:06 10 ML Vasopressin 20 units/Sodium Chloride 100 ml @ 9 mls/hr Q11H7M IV 07/09/24 13:15 07/29/24 20:25 6 MLS/HR Norepinephrine Bitartrate 32 mg/ Sodium Chloride 250 ml @ 0.938 mls/ hr Q24H IV 07/09/24 15:30 07/29/24 20:00 13.125 MLS/HR Phenylephrine HCl 80 mg/Sodium Chloride 250 ml @ 7.5 mls/hr Q24H IV 07/09/24 15:45 07/30/24 09:00 29.063 MLS/HR Epinephrine HCl 250 ml @ 7.5 mls/hr Q24H IV 07/09/24 17:00 07/26/24 11:28 7.5 MLS/HR Albumin Human 50 ml @ 100 mls/hr PRN PRN IV 07/13/24 08:30 Cancel Albumin Human 50 ml @ 50 mls/hr PRN PRN IV 07/13/24 08:20 07/28/24 08:10 50 MLS/HR Albuterol 2.5 mg Q6HR HHN 07/18/24 18:00 07/30/24 06:50 2.5 MG Ipratropium [place] 0.5 mg Q6HR NEB 07/18/24 18:00 07/30/24 06:50 0.5 MG Hydralazine HCl 10 mg Q4HR PRN IV 07/19/24 15:30 Hold 07/22/24 09:41 10 MG Labetalol HCl 10 mg Q2HPRN PRN IV 07/22/24 11:15 Bacitracin 1 applic DAILY TOP 07/24/24 10:00 07/30/24 08:56 1 APPLIC Amphotericin B Liposome 250 mg/ Dextrose 187.5 ml @ 93.75 mls/ hr DAILY@2100 IV 07/24/24 21:00 07/29/24 21:19 93.75 MLS/HR Acetaminophen 650 mg DAILY@2030 PO 07/24/24 20:30 07/29/24 21:11 650 MG Diphenhydramine HCl 25 mg DAILY@2030 IV 07/24/24 20:30 07/29/24 21:11 25 MG Diagnostic Test (Pha) 1 strip Q6HR 07/26/24 18:00 07/30/24 06:06 1 STRIP Insulin Human Regular FOLLOW SLIDING SCALE Q6HR SC 07/26/24 18:00 07/30/24 06:08 8 UNITS Dextrose 50 ml UD IV 07/26/24 15:45 Epoetin Justus-epbx 10,000 unit MWF@2100 SC 07/28/24 21:00 07/28/24 21:52 10,000 UNIT Midazolam HCl 50 ml @ 1 mls/hr Q24H IV 07/27/24 15:15 07/30/24 08:57 12 MLS/HR Fentanyl Citrate 250 ml @ 2.5 mls/hr Q24H IV 07/27/24 15:15 07/30/24 09:01 15 MLS/HR Amino Acids 0 ml @ 0 mls/hr PER PHARMACY IV 07/28/24 09:30 Pantoprazole Sodium 40 mg BID IV 07/28/24 10:00 07/30/24 08:55 40 MG Vancomycin HCl 0 ml @ 0 mls/hr UD IV 07/28/24 19:15 Hydrocortisone Sodium Succinate 100 mg Q8HR IV 07/29/24 14:00 07/30/24 06:10 100 MG Sodium Chloride 20 meq/Potassium Chloride 10 meq/ Magnesium Sulfate 4 meq/ Multivitamins 10 ml/Amino Acids/ Dextrose 1,121 ml @ 46 mls/hr [id number] IV 07/29/24 22:00 07/30/24 21:59 07/29/24 22:02 46 MLS/HR Cefiderocol 0.75 gm/Sodium Chloride 100 ml @ 33.333 mls/ hr Q12H IV 07/29/24 21:00 07/30/24 08:54 33.333 MLS/HR Examination GENERAL: Intubated on ventilator. obese. NG output bilious, bleeding from the mouth LUNGS: Decreased breath sounds. CARDIOVASCULAR: Heart sounds are good. ABDOMEN: Soft. Nontender, hypoactive bowel sounds. Left lower quadrant maculopapular rash EXT: BLE edema. laboratory and microbiology Laboratory Tests 07/30/24 03:22 07/29/24 03:00 Test 07/30/24 03:22 Range/Units Serum Glucose 226 H 74-106 mg/dL Microbiology Date/Time Source Procedure Growth Status 07/27/24 16:00 Sputum Gram Stain - Final Resulted 07/27/24 16:00 Sputum Respiratory Culture - Preliminary Resulted 07/26/24 14:50 Blood Blood Culture - Preliminary NO GROWTH AFTER 72 HOURS OF INCUBATION. Resulted 07/09/24 19:55 Trachea Gram Stain - Final Complete 07/09/24 19:55 Trachea Respiratory Culture - Final Complete Labs and/or images reviewed: Labs reviewed by me, Image(s) reviewed by me Problem List/Assessment/Plan Problem List/Assessment/Plan Active GI bleeding requiring transfusion - unspecified cause Acute respiratory failure-> reintubated uremic acidosis / lactic acidosis septic shock with E Coli bacteremia Coronary artery disease status post CABG in 2021 fungal infection lower extremity wound Macrocytic anemia hypoglycemia hyperkalemia Severe thrombocytopenia severe fluid overload Plan: 1 unit of packed RBC and 1 unit of platelet ordered Continue IV PPI b.i.d. 40 mg Repeat H&H after blood transfusion, transfuse as necessary Patient is unstable for any GI procedure currently. We will continue to monitor Follow up with direct bilirubin, haptoglobin. LFTs trending down HD treatment pressors to keep MAP > 65 fluid removal as tolerated Ecoli bacteremia on meropenem clinically unstable, prognosis is poor Case discussed with Dr. [place] Plan discussed with: Patient, Spouse, Daughter (At the bedside) My Orders My Orders Orders - SULTANA GARCIA Procedure Category Date Status Time Complete Blood Count LAB 07/30/24 Logged 11:16 Dietary Evaluation Review Comments: 1) If GI is accessible consider Nepro 1.8 @ 20 ml/hr with current rate of propofol on board 2) If pt remains NPO >7days of NPO status, provide TPN to meet at least 75% of estimated needs 3) Advance pt diet when medically feasible to a Renal Standard diet modified per [employer] recommendations Expected Outcomes/Goals: 1) Pt to receive nutrition support within 7 days of NPO status 2) Pt diet to advance 3) F/U in 2-3 days SULTANA GARCIA Jul 30, 2024 11:18
[2024-07-30 11:29] LABS: Eosinophils # (auto) 0 10 ^3/uL (0-0.8); Hematocrit 21.3 % (41.0-53.0); Monocytes # (auto) 0.7 10 ^3/uL (0-1.3); Neutrophils # (auto) 7.9 10 ^3/uL (1.6-8.6); Platelet Count (auto) 24 10^3/uL (140-450)
[2024-07-30 11:31] LABS: Basophils # (auto) 0 10 ^3/uL (0-0.2); Basophils % (auto) 0.3 % (0.0-2.0); Eosinophils % (auto) 0.4 % (0.0-7.0); Lymphocytes # (auto) 0.4 10 ^3/uL (0.4-5.4); Lymphocytes % (auto) 4.9 % (10.0-50.0); Mean Corpuscular Hemoglobin 33.8 pg (28.0-32.0); Mean Corpuscular Hgb Conc. 31.9 g/dL (32.0-36.0); Monocytes % (auto) 7.3 % (0.0-12.0); Neutrophils % (auto) 87.1 % (37.0-80.0); Nucleated Red Blood Cells % 0.2 %; Red Blood Cells 2.01 10^6/uL (4.5-5.90); Red Cell Distribution Width 19.1 % (11.8-14.3); White Blood Cell 9.1 10^3/uL (4.4-10.8)
[2024-07-30 11:49] LABS: Hemoglobin 6.8 g/dL (13.5-17.5)
--- NOTE | 2024-07-30 11:49 | DVHPN2 ---
Consult Progress Note Date Seen: Jul 29, 2024 Subjective Patient reports: Other (is on multiple pressure FIO2 40% and on a ventilator . had a broncoscopy done that some thick secreations were cleared. volume overloaded ) Objective vital signs Vital Sign Date Time Temp Pulse Resp B/P (MAP) Pulse Ox O2 Delivery O2 Flow Rate FiO2 07/30/24 10:12 95 26 124/58 (80) 100 35 07/30/24 10:00 Mechanical Ventilator+ 07/30/24 08:00 98.3 98.3 Total Intake and Output 07/29/24 07/29/24 07/30/24 14:59 22:59 06:59 Intake Total 975.44 ml 879.381 ml 1158.934 ml Output Total 0 ml Balance 975.44 ml 879.381 ml 1158.934 ml medications Current Medications Medications Dose Ordered Sig/Rey Route Start Time Stop Time Status Last Admin Dose Admin Vancomycin HCl 0 ml @ 0 mls/hr UD IV 07/08/24 17:00 Cancel Sodium Chloride 10 ml Q8HR IV 07/09/24 06:00 07/30/24 06:06 10 ML Vasopressin 20 units/Sodium Chloride 100 ml @ 9 mls/hr Q11H7M IV 07/09/24 13:15 07/29/24 20:25 6 MLS/HR Norepinephrine Bitartrate 32 mg/ Sodium Chloride 250 ml @ 0.938 mls/ hr Q24H IV 07/09/24 15:30 07/29/24 20:00 13.125 MLS/HR Phenylephrine HCl 80 mg/Sodium Chloride 250 ml @ 7.5 mls/hr Q24H IV 07/09/24 15:45 07/30/24 09:00 29.063 MLS/HR Epinephrine HCl 250 ml @ 7.5 mls/hr Q24H IV 07/09/24 17:00 07/26/24 11:28 7.5 MLS/HR Albumin Human 50 ml @ 100 mls/hr PRN PRN IV 07/13/24 08:30 Cancel Albumin Human 50 ml @ 50 mls/hr PRN PRN IV 07/13/24 08:20 07/28/24 08:10 50 MLS/HR Albuterol 2.5 mg Q6HR HHN 07/18/24 18:00 07/30/24 06:50 2.5 MG Ipratropium [place] 0.5 mg Q6HR NEB 07/18/24 18:00 07/30/24 06:50 0.5 MG Hydralazine HCl 10 mg Q4HR PRN IV 07/19/24 15:30 Hold 07/22/24 09:41 10 MG Labetalol HCl 10 mg Q2HPRN PRN IV 07/22/24 11:15 Bacitracin 1 applic DAILY TOP 07/24/24 10:00 07/30/24 08:56 1 APPLIC Amphotericin B Liposome 250 mg/ Dextrose 187.5 ml @ 93.75 mls/ hr DAILY@2100 IV 07/24/24 21:00 07/29/24 21:19 93.75 MLS/HR Acetaminophen 650 mg DAILY@2029 PO 07/24/24 20:30 07/29/24 21:11 650 MG Diphenhydramine HCl 25 mg DAILY@2029 IV 07/24/24 20:30 07/29/24 21:11 25 MG Diagnostic Test (Pha) 1 strip Q6HR 07/26/24 18:00 07/30/24 11:30 1 STRIP Insulin Human Regular FOLLOW SLIDING SCALE Q6HR SC 07/26/24 18:00 07/30/24 11:36 4 UNITS Dextrose 50 ml UD IV 07/26/24 15:45 Epoetin Justus-epbx 10,000 unit MWF@2100 SC 07/28/24 21:00 07/28/24 21:52 10,000 UNIT Midazolam HCl 50 ml @ 1 mls/hr Q24H IV 07/27/24 15:15 07/30/24 08:57 12 MLS/HR Fentanyl Citrate 250 ml @ 2.5 mls/hr Q24H IV 07/27/24 15:15 07/30/24 09:01 15 MLS/HR Amino Acids 0 ml @ 0 mls/hr PER PHARMACY IV 07/28/24 09:30 Pantoprazole Sodium 40 mg BID IV 07/28/24 10:00 07/30/24 08:55 40 MG Vancomycin HCl 0 ml @ 0 mls/hr UD IV 07/28/24 19:15 Hydrocortisone Sodium Succinate 100 mg Q8HR IV 07/29/24 14:00 07/30/24 06:10 100 MG Sodium Chloride 20 meq/Potassium Chloride 10 meq/ Magnesium Sulfate 4 meq/ Multivitamins 10 ml/Amino Acids/ Dextrose 1,121 ml @ 46 mls/hr [id number] IV 07/29/24 22:00 07/30/24 21:59 07/29/24 22:02 46 MLS/HR Cefiderocol 0.75 gm/Sodium Chloride 100 ml @ 33.333 mls/ hr Q12H IV 07/29/24 21:00 07/30/24 08:54 33.333 MLS/HR PHYSICAL EXAM: - GENERAL: Alert and oriented x 3. No acute distress. Well-nourished. - EYES: EOMI. Anicteric. - HENT: Moist mucous membranes. No scleral icterus. No cervical lymphadenopathy. - LUNGS: Clear to auscultation bilaterally. No accessory muscle use. - CARDIOVASCULAR: Regular rate and rhythm. No murmur. No JVD. - ABDOMEN: Soft, non-tender and non-distended. No palpable masses. - EXTREMITIES: No edema. Non-tender.?SKIN: No rashes or lesions. Warm. - NEUROLOGIC: No focal neurological deficits. CN II-XII grossly intact, but not individually tested - PSYCHIATRIC: Cooperative. Appropriate mood and affect laboratory and microbiology Laboratory Tests 07/30/24 03:22 Test 07/30/24 03:22 Range/Units Serum Glucose 226 H 74-106 mg/dL Problem List/Assessment/Plan Problems(with codes): (1) E coli bacteremia (2) Necrotizing fasciitis of lower leg (3) Elevated liver enzymes (4) End-stage renal disease on hemodialysis (5) Acute kidney failure, unspecified (6) Sepsis (7) Pancytopenia Problem List/Assessment/Plan ID Problem List: - Septic shock - Necrotizing fasciitis of right lower extremity - End-stage renal disease on hemodialysis - Kidney cancer status post nephrectomy - Coronary artery disease - Hyperlipidemia - Status post CABG - ESBL Bacteria - Pneumonia Assessment This is a 58 y.o. male with a past medical history of kidney cancer status post nephrectomy, end-stage renal disease on hemodialysis, coronary artery disease, hyperlipidemia, and status post CABG, who presents with chest pain, fever, and right thigh tenderness concerning for necrotizing fasciitis. On admission, the patient had a temperature of 104F, hypotension (BP 78/45 mmHg), lactic acid 3.8 mmol/L, elevated AST (3044 U/L) and ALT (560 U/L), WBC count 37,000/mm, hemoglobin 7.5 g/dL, and platelets 62,000/mm. Physical examination notable for right thigh tenderness and generalized weakness. Initial imaging included CT scan of the right thigh showing subcutaneous edema with no gas in soft tissues and small bilateral knee effusions. Chest CT revealed bronchiovascular crowding; underlying pulmonary vascular condition cannot be excluded. Blood cultures are preliminarily positive for gram-negative rods. Respiratory cultures show gram-positive issa. An anaerobic bottle was positive for gram- negative rods. Laboratory studies reveal persistent elevation of liver enzymes with AST 3009 U/L and ALT 1976 U/L. Lactic acid increased to 15 mmol/L, platelets decreased to 32,000/mm. Peripheral smear shows Elizabeth cells. Potassium is elevated at 6 mEq/L. The patient is intubated and sedated for acute hypoxic respiratory failure and altered mental status. 07/10: Undergoing ultra filtration and whitecount is elevated. Pressures are starting to come down since initiating meropenem and platelets are still low at 57 07/11: has an elevated whitecount of 19.1 , LFTs and renal function continue to worsen. blood cultures show ESBL E Coli . chest xray shows a left small bascular airspace disease . Fibrinogen is 433 appears to be adequate and patient is not having any additional signs of bleed . hemoglobin is stable at 8.4 and can hold off on additional transfusions outside of keeping hemoglobin above 7 and platelets above 50 07/12: whitecount is 28.43 , liver enzymes remain elevated at 2955 ALT and 2723 AST , as [place] [address] 07/24: extubated 2 days ago tolerated cpap on trickle feeds remains somewhat altered leukocytosis rising, restarted on pressors for last 2 days sacral ulcer present, thigh cellulitis resolved, respiratory culture w/ filamentus fungi 06/25: high fevers 06/26: thick mendoza secretions patient reintubated 07/28: whitecount is 13.6 , repeat blood cultures show young colonies 07/29: whitecount is 11.2 , respiratory cultures from bronchoscopy shows gram negative rods Plan: - given persisten gram negative rods , stop meropenum start petrosa 750 milligrams every 12 hours - monitor LFTs daily - keep MAP goal to 65 for patient to maintain blood pressure support - check blood culture to confirm clearance of bacteremia - continue amphotericin B - continue vancomycin empirically in setting of septic shock - Surgical Consultation: Agree with general surgeon that clinical picture favors hematoma vs cellulitis , no signs of necrotizing infection at this time - Supportive Care: Continue vasopressor support with norepinephrine (Levophed) and epinephrine as needed for septic shock. - Laboratory Monitoring: Recheck laboratory values including CBC, CMP, lactic acid, and coagulation profile. Monitor liver function tests. - Renal Management: Coordinate with nephrology for hemodialysis management. - Isolation Precautions: Standard precautions. Authorized and Performed by: sangeetha melendrez Total critical care time: Approximately 73 minutes Due to a high probability of clinically significant, life threatening deterioration, the patient required my highest level of preparedness to intervene emergently and I personally spent this critical care time directly and personally managing the patient. This critical care time included obtaining a history; examining the patient; pulse oximetry; ordering and review of studies; arranging urgent treatment with development of a management plan; evaluation of patient's response to treatment; frequent reassessment; and, discussions with other providers. This critical care time was performed to assess and manage the high probability of imminent, life-threatening deterioration that could result in multi-organ failure. It was exclusive of separately billable procedures and treating other patients and teaching time. Plan discussed with: Other Dietary Evaluation Review Comments: 1) If GI is accessible consider Nepro 1.8 @ 20 ml/hr with current rate of propofol on board 2) If pt remains NPO >7days of NPO status, provide TPN to meet at least 75% of estimated needs 3) Advance pt diet when medically feasible to a Renal Standard diet modified per LEGAL ARBITRATOR recommendations Expected Outcomes/Goals: 1) Pt to receive nutrition support within 7 days of NPO status 2) Pt diet to advance 3) F/U in 2-3 days SANGEETHA MELENDREZ MD Jul 30, 2024 11:49
[2024-07-30] MEDS: VANCOMYCIN 500mg/100mL 100 ML IV ONE (13:12)
[2024-07-30] MEDS: POTASSIUM PHOSPHATE 22 MEQ in SODIUM CHL 0.9% 100 ML IV ONE (14:59)
--- NOTE | 2024-07-30 17:51 | DVHPN2 ---
Progress Note - Dictate Date Seen: Jul 30, 2024 Has the PT tested + for MRSA If YES, has PT been informed?: No Medical Necessity Reason Pt with a Central, PICC or Fol: Yes The following are medically ne: Central Line Subjective Mr. Daniel altered gentleman with a history of hypertension, dyslipidemia, coronary artery disease, kidney cancer status post nephrectomy, kidney failure on hemodialysis, the patient was brought to the [facility]. He was reintubated on 06/26/25 I have seen and examined the patient, I have discussed with his nurse, family is in the room. he is slightly responsive strong painful stimuli, he needs less pressor drip Neosyn 55mcg/min, Levo 8 mcg/min, fentanyl 150 mcg/hour, Versed 12 mg/hour Blood culture, 07/08/2024: E coli HIV & II Ab, 07/10/24: Negative ABG, 07/09/2024: Metabolic acidosis, 07/10/2024: Metabolic acidosis, WBC/HB/PLT/MCV, 07/19/2024: 13.1/9.6/65/105.9 PT/INR/PTT, 07/11/2024: 35.6/3.63/38.4, 07/08/2024: 17.4/1.73/34.2, 07/28/2024: 17.1/1.7 BUN/CR, 07/09/2024: 59/3.03 07/19/2024: 78/4.54 07/20/2024: 92/5.37 Lactic acid, 07/08/2019 5:3.1, 07/09/2024: 9.6, 07/10/24: 15.5, 07/11/2024: 449, 12.2, 07/29/2024: 43/2.02 HGB A1c, : 3.8 CPK 07/08/2019 5:114, 07/19/2024: 1579 TBI/AST/ALT/AP, once the 925, 0.6/244/561/105, 07/09/2024: 1.1/306/563/101, 07/19/2024: 12/212/261/138, 07/28/2024, 8.9/76/23/160 Hepatitis panel, : Negative TG/HDL/LDL/HDL, 07/10/2024: 364/60/5/<5 Vitamin B12, 07/19/2024: >4000 Folic acid 07/19/2024: 9.12 TSH, 07/10/2024: 0.33 EEG 07/19/2024: inadequate but likely mildly abnormal EEG Chest x-ray, 07/08/2024: Bronchovascular crowding. Underlying mild pulmonary vascular congestion can not be excluded Obscuration of the left hemidiaphragm which may be from overlying cardiac silhouette with underlying pleural effusion /atelectasis / pneumonia not excluded. Chest x-ray, 07/09/2024: 1. Left lower lobe opacity may reflect atelectasis or mild pneumonia. 2. Mild interstitial pulmonary edema. 3. Small left pleural effusion. 4. Lines and tubes as above (Endotracheal tube terminates 1.8 cm above the quin) Chest x-ray, 07/17/2024: Endotracheal tube terminates 4.8 cm from the quin. Enteric tube is overlying the plane of the stomach Chest x-ray, 07/27/2024: Cardiomegaly with pulmonary congestion. Left basilar consolidation with small effusion CT head, 07/19/2024: Atrophy. No acute intracranial pathology vital signs Vital Sign Date Time Temp Pulse Resp B/P (MAP) Pulse Ox O2 Delivery O2 Flow Rate FiO2 07/30/24 16:30 94 24 103/53 (70) 99 07/30/24 16:00 Mechanical Ventilator+ 30 30 07/30/24 16:00 97.7 97.7 Total Intake and Output 07/29/24 07/29/24 07/30/24 15:00 23:00 07:00 Intake Total 975.44 ml 1010.409 ml 1016.976 ml Output Total 0 ml Balance 975.44 ml 1010.409 ml 1016.976 ml medications Current Medications Medications Dose Ordered Sig/Rey Route Start Time Stop Time Status Last Admin Dose Admin Vancomycin HCl 0 ml @ 0 mls/hr UD IV 07/08/24 17:00 Cancel Sodium Chloride 10 ml Q8HR IV 07/09/24 06:00 07/30/24 13:12 10 ML Vasopressin 20 units/Sodium Chloride 100 ml @ 9 mls/hr Q11H7M IV 07/09/24 13:15 07/29/24 20:25 6 MLS/HR Norepinephrine Bitartrate 32 mg/ Sodium Chloride 250 ml @ 0.938 mls/ hr Q24H IV 07/09/24 15:30 07/29/24 20:00 13.125 MLS/HR Phenylephrine HCl 80 mg/Sodium Chloride 250 ml @ 7.5 mls/hr Q24H IV 07/09/24 15:45 07/30/24 09:00 29.063 MLS/HR Epinephrine HCl 250 ml @ 7.5 mls/hr Q24H IV 07/09/24 17:00 07/26/24 11:28 7.5 MLS/HR Albumin Human 50 ml @ 100 mls/hr PRN PRN IV 07/13/24 08:30 Cancel Albumin Human 50 ml @ 50 mls/hr PRN PRN IV 07/13/24 08:20 07/28/24 08:10 50 MLS/HR Albuterol 2.5 mg Q6HR HHN 07/18/24 18:00 07/30/24 11:57 2.5 MG Ipratropium [place] 0.5 mg Q6HR NEB 07/18/24 18:00 07/30/24 11:57 0.5 MG Hydralazine HCl 10 mg Q4HR PRN IV 07/19/24 15:30 Hold 07/22/24 09:41 10 MG Labetalol HCl 10 mg Q2HPRN PRN IV 07/22/24 11:15 Bacitracin 1 applic DAILY TOP 07/24/24 10:00 07/30/24 08:56 1 APPLIC Amphotericin B Liposome 250 mg/ Dextrose 187.5 ml @ 93.75 mls/ hr DAILY@2100 IV 07/24/24 21:00 07/29/24 21:19 93.75 MLS/HR Acetaminophen 650 mg DAILY@2029 PO 07/24/24 20:30 07/29/24 21:11 650 MG Diphenhydramine HCl 25 mg DAILY@2029 IV 07/24/24 20:30 07/29/24 21:11 25 MG Diagnostic Test (Pha) 1 strip Q6HR 07/26/24 18:00 07/30/24 17:17 1 STRIP Insulin Human Regular FOLLOW SLIDING SCALE Q6HR SC 07/26/24 18:00 07/30/24 17:22 2 UNITS Dextrose 50 ml UD IV 07/26/24 15:45 Epoetin Justus-epbx 10,000 unit MWF@2100 SC 07/28/24 21:00 07/28/24 21:52 10,000 UNIT Midazolam HCl 50 ml @ 1 mls/hr Q24H IV 07/27/24 15:15 07/30/24 17:22 12 MLS/HR Fentanyl Citrate 250 ml @ 2.5 mls/hr Q24H IV 07/27/24 15:15 07/30/24 09:01 15 MLS/HR Amino Acids 0 ml @ 0 mls/hr PER PHARMACY IV 07/28/24 09:30 Pantoprazole Sodium 40 mg BID IV 07/28/24 10:00 07/30/24 08:55 40 MG Vancomycin HCl 0 ml @ 0 mls/hr UD IV 07/28/24 19:15 Hydrocortisone Sodium Succinate 100 mg Q8HR IV 07/29/24 14:00 07/30/24 13:12 100 MG Sodium Chloride 20 meq/Potassium Chloride 10 meq/ Magnesium Sulfate 4 meq/ Multivitamins 10 ml/Amino Acids/ Dextrose 1,121 ml @ 46 mls/hr [id number] IV 07/29/24 22:00 07/30/24 21:59 07/29/24 22:02 46 MLS/HR Cefiderocol 0.75 gm/Sodium Chloride 100 ml @ 33.333 mls/ hr Q12H IV 07/29/24 21:00 07/30/24 08:54 33.333 MLS/HR Fat Emulsion Intravenous 50 ml/ Sodium Chloride 40 meq/Potassium Phosphate 20 meq/ Magnesium Sulfate 8 meq/ Multivitamins 10 ml/Amino Acids/ Dextrose 1,076.5455 ml @ 45 mls/hr [id number] IV 07/30/24 22:00 07/31/24 21:59 objective The patient is well-nourished and well-developed with no distress. The patient is intubated MENTAL STATUS: Subjective CRANIAL NERVES: Pupils are equal, round and nonreactive, small. There are corneal reflexes and doll's eyes phenomenon. No signs of facial weakness. There are gagging or coughing reflexes SENSATION: No responses to pain stimuli. MOTOR: Normal tone in the upper and lower extremity. Normal muscle bulk. No fasciculations. No spontaneous movement. REFLEXES: Deep tendon reflexes are symmetrical. No pathological reflexes. CEREBELLAR/COORDINATION: Deferred GAIT/STATION: deferred. laboratory and microbiology Laboratory Tests 07/30/24 03:23 07/30/24 03:22 Test 07/30/24 03:22 Range/Units Serum Glucose 226 H 74-106 mg/dL Problem List Altered mental status, Metabolic encephalopathy Hypoxic encephalopathy Toxic encephalopathy Hepatic encephalopathy Respiratory failure, reintubated Sepsis/septic shock Pneumonia Cellulitis Metabolic acidosis Coagulopathy secondary to liver failure Elevated liver function test Thrombocytopenia Macrocytic anemia Elevated liver function tests ICU myopathy Assessment/Plan Monitoring Supportive treatment ICU care MR brain scan later Stabilize vitals/pressor drip Respiratory support/vent management Oxygen Antibiotics GI prophylaxis/pantoprazole Infectious disease on case Pulmonary on case Cardiology on case Nephrology on case More recommendation per clinical course This medical document was created using an electronic medical record system with [employer] dictation system. Although this document has been carefully reviewed, there may still be some phonetic and typographical errors. These areas are purely typographical due to imperfections of the software programs, and do not reflect any compromise in the patient's medical care Prognosis guarded Dietary Evaluation Review Comments: 1) If GI is accessible consider Nepro 1.8 @ 20 ml/hr with current rate of propofol on board 2) If pt remains NPO >7days of NPO status, provide TPN to meet at least 75% of estimated needs 3) Advance pt diet when medically feasible to a Renal Standard diet modified per PREMIUM CARD CANCELLATION CLERK recommendations Expected Outcomes/Goals: 1) Pt to receive nutrition support within 7 days of NPO status 2) Pt diet to advance 3) F/U in 2-3 days Plan discussed with: Other SUMIT SANTAMARIA MD Jul 30, 2024 17:51
--- NOTE | 2024-07-30 18:35 | DVHPN2 ---
Progress Note Date Seen: Jul 30, 2024 Has the PT tested + for MRSA If YES, has PT been informed?: No Medical Necessity Reason Pt with a Central, PICC or Fol: Yes The following are medically ne: Central Line Subjective Patient reports: Other Review of Systems: RESPIRATORY:Abnormal Objective vital signs Vital Sign Date Time Temp Pulse Resp B/P (MAP) Pulse Ox O2 Delivery O2 Flow Rate FiO2 07/30/24 18:00 24 99 Mechanical Ventilator+ 30 30 07/30/24 18:00 98 07/30/24 16:30 103/53 (70) 07/30/24 16:00 97.7 97.7 Total Intake and Output 07/29/24 07/29/24 07/30/24 15:00 23:00 07:00 Intake Total 975.44 ml 1010.409 ml 1016.976 ml Output Total 0 ml Balance 975.44 ml 1010.409 ml 1016.976 ml medications Current Medications Medications Dose Ordered Sig/Rey Route Start Time Stop Time Status Last Admin Dose Admin Vancomycin HCl 0 ml @ 0 mls/hr UD IV 07/08/24 17:00 Cancel Sodium Chloride 10 ml Q8HR IV 07/09/24 06:00 07/30/24 13:12 10 ML Vasopressin 20 units/Sodium Chloride 100 ml @ 9 mls/hr Q11H7M IV 07/09/24 13:15 07/29/24 20:25 6 MLS/HR Norepinephrine Bitartrate 32 mg/ Sodium Chloride 250 ml @ 0.938 mls/ hr Q24H IV 07/09/24 15:30 07/29/24 20:00 13.125 MLS/HR Phenylephrine HCl 80 mg/Sodium Chloride 250 ml @ 7.5 mls/hr Q24H IV 07/09/24 15:45 07/30/24 09:00 29.063 MLS/HR Epinephrine HCl 250 ml @ 7.5 mls/hr Q24H IV 07/09/24 17:00 07/26/24 11:28 7.5 MLS/HR Albumin Human 50 ml @ 100 mls/hr PRN PRN IV 07/13/24 08:30 Cancel Albumin Human 50 ml @ 50 mls/hr PRN PRN IV 07/13/24 08:20 07/28/24 08:10 50 MLS/HR Albuterol 2.5 mg Q6HR HHN 07/18/24 18:00 07/30/24 11:57 2.5 MG Ipratropium [place] 0.5 mg Q6HR NEB 07/18/24 18:00 07/30/24 11:57 0.5 MG Hydralazine HCl 10 mg Q4HR PRN IV 07/19/24 15:30 Hold 07/22/24 09:41 10 MG Labetalol HCl 10 mg Q2HPRN PRN IV 07/22/24 11:15 Bacitracin 1 applic DAILY TOP 07/24/24 10:00 07/30/24 08:56 1 APPLIC Amphotericin B Liposome 250 mg/ Dextrose 187.5 ml @ 93.75 mls/ hr DAILY@2100 IV 07/24/24 21:00 07/29/24 21:19 93.75 MLS/HR Acetaminophen 650 mg DAILY@2030 PO 07/24/24 20:30 07/29/24 21:11 650 MG Diphenhydramine HCl 25 mg DAILY@2030 IV 07/24/24 20:30 07/29/24 21:11 25 MG Diagnostic Test (Pha) 1 strip Q6HR 07/26/24 18:00 07/30/24 17:17 1 STRIP Insulin Human Regular FOLLOW SLIDING SCALE Q6HR SC 07/26/24 18:00 07/30/24 17:22 2 UNITS Dextrose 50 ml UD IV 07/26/24 15:45 Epoetin Justus-epbx 10,000 unit MWF@2100 SC 07/28/24 21:00 07/28/24 21:52 10,000 UNIT Midazolam HCl 50 ml @ 1 mls/hr Q24H IV 07/27/24 15:15 07/30/24 17:22 12 MLS/HR Fentanyl Citrate 250 ml @ 2.5 mls/hr Q24H IV 07/27/24 15:15 07/30/24 09:01 15 MLS/HR Amino Acids 0 ml @ 0 mls/hr PER PHARMACY IV 07/28/24 09:30 Pantoprazole Sodium 40 mg BID IV 07/28/24 10:00 07/30/24 08:55 40 MG Vancomycin HCl 0 ml @ 0 mls/hr UD IV 07/28/24 19:15 Hydrocortisone Sodium Succinate 100 mg Q8HR IV 07/29/24 14:00 07/30/24 13:12 100 MG Sodium Chloride 20 meq/Potassium Chloride 10 meq/ Magnesium Sulfate 4 meq/ Multivitamins 10 ml/Amino Acids/ Dextrose 1,121 ml @ 46 mls/hr [id number] IV 07/29/24 22:00 07/30/24 21:59 07/29/24 22:02 46 MLS/HR Cefiderocol 0.75 gm/Sodium Chloride 100 ml @ 33.333 mls/ hr Q12H IV 07/29/24 21:00 07/30/24 08:54 33.333 MLS/HR Fat Emulsion Intravenous 50 ml/ Sodium Chloride 40 meq/Potassium Phosphate 20 meq/ Magnesium Sulfate 8 meq/ Multivitamins 10 ml/Amino Acids/ Dextrose 1,076.5455 ml @ 45 mls/hr [id number] IV 07/30/24 22:00 07/31/24 21:59 Examination: GENERAL:Abnormal, NECK:Abnormal, LUNGS:Abnormal, ABDOMEN:Abnormal, SKIN:Abnormal laboratory and microbiology Laboratory Tests 07/30/24 03:23 07/30/24 03:22 Test 07/30/24 03:22 Range/Units Serum Glucose 226 H 74-106 mg/dL Microbiology Date/Time Source Procedure Growth Status 07/27/24 16:00 Sputum Gram Stain - Final Resulted 07/27/24 16:00 Respiratory Culture - Preliminary Stenotrophomonas maltophilia Resulted 07/26/24 14:50 Blood Blood Culture - Preliminary NO GROWTH AFTER 72 HOURS OF INCUBATION. Resulted 07/09/24 19:55 Trachea Gram Stain - Final Complete 07/09/24 19:55 Trachea Respiratory Culture - Final Complete Problem List/Assessment/Plan Problem List/Assessment/Plan ESRD on HD acute respiratory failure-> reintubated uremic acidosis / lactic acidosis septic shock with gram-negative anabella bacteremia fungal infection lower extremity wound anemia hypoglycemia hyperkalemia thrombocytopenia severe fluid overload HD friday remains hypotensive on multiple pressors pressors to keep MAP > 65 fluid removal as tolerated Ecoli bacteremia on merrem ABX clinically unstable, prognosis is poor Plan discussed with: Other Dietary Evaluation Review Comments: 1) If GI is accessible consider Nepro 1.8 @ 20 ml/hr with current rate of propofol on board 2) If pt remains NPO >7days of NPO status, provide TPN to meet at least 75% of estimated needs 3) Advance pt diet when medically feasible to a Renal Standard diet modified per [employer] P[employer] recommendations Expected Outcomes/Goals: 1) Pt to receive nutrition support within 7 days of NPO status 2) Pt diet to advance 3) F/U in 2-3 days Critical Care Time (mins): 33 LULU RICHARD MD Jul 30, 2024 18:35
--- NOTE | 2024-07-30 22:04 | DVHPN2 ---
Consult Progress Note Date Seen: Jul 30, 2024 Subjective Patient reports: Other (is on minimal vent , come down on adelethrin and levofed . still volume overloaded and unable to undergo dialysis , intermittedly hypotensive with cold extremities ) Objective vital signs Vital Sign Date Time Temp Pulse Resp B/P (MAP) Pulse Ox O2 Delivery O2 Flow Rate FiO2 07/30/24 21:27 123/52 07/30/24 21:05 97.7 93 17 97.7 07/30/24 20:21 98 30 07/30/24 18:00 Mechanical Ventilator+ Total Intake and Output 07/29/24 07/29/24 07/30/24 15:00 23:00 07:00 Intake Total 975.44 ml 1010.409 ml 1016.976 ml Output Total 0 ml Balance 975.44 ml 1010.409 ml 1016.976 ml medications Current Medications Medications Dose Ordered Sig/Rey Route Start Time Stop Time Status Last Admin Dose Admin Vancomycin HCl 0 ml @ 0 mls/hr UD IV 07/08/24 17:00 Cancel Sodium Chloride 10 ml Q8HR IV 07/09/24 06:00 07/30/24 21:42 10 ML Vasopressin 20 units/Sodium Chloride 100 ml @ 9 mls/hr Q11H7M IV 07/09/24 13:15 07/29/24 20:25 6 MLS/HR Norepinephrine Bitartrate 32 mg/ Sodium Chloride 250 ml @ 0.938 mls/ hr Q24H IV 07/09/24 15:30 07/29/24 20:00 13.125 MLS/HR Phenylephrine HCl 80 mg/Sodium Chloride 250 ml @ 7.5 mls/hr Q24H IV 07/09/24 15:45 07/30/24 09:00 29.063 MLS/HR Epinephrine HCl 250 ml @ 7.5 mls/hr Q24H IV 07/09/24 17:00 07/26/24 11:28 7.5 MLS/HR Albumin Human 50 ml @ 100 mls/hr PRN PRN IV 07/13/24 08:30 Cancel Albumin Human 50 ml @ 50 mls/hr PRN PRN IV 07/13/24 08:20 07/28/24 08:10 50 MLS/HR Albuterol 2.5 mg Q6HR HHN 07/18/24 18:00 07/30/24 18:37 2.5 MG Ipratropium [place] 0.5 mg Q6HR NEB 07/18/24 18:00 07/30/24 18:37 0.5 MG Hydralazine HCl 10 mg Q4HR PRN IV 07/19/24 15:30 Hold 07/22/24 09:41 10 MG Labetalol HCl 10 mg Q2HPRN PRN IV 07/22/24 11:15 Bacitracin 1 applic DAILY TOP 07/24/24 10:00 07/30/24 08:56 1 APPLIC Amphotericin B Liposome 250 mg/ Dextrose 187.5 ml @ 93.75 mls/ hr DAILY@2100 IV 07/24/24 21:00 07/29/24 21:19 93.75 MLS/HR Acetaminophen 650 mg DAILY@2030 PO 07/24/24 20:30 07/30/24 20:07 650 MG Diphenhydramine HCl 25 mg DAILY@2030 IV 07/24/24 20:30 07/30/24 20:04 25 MG Diagnostic Test (Pha) 1 strip Q6HR 07/26/24 18:00 07/30/24 17:17 1 STRIP Insulin Human Regular FOLLOW SLIDING SCALE Q6HR SC 07/26/24 18:00 07/30/24 17:22 2 UNITS Dextrose 50 ml UD IV 07/26/24 15:45 Epoetin Justus-epbx 10,000 unit MWF@2100 SC 07/28/24 21:00 07/30/24 21:18 10,000 UNIT Midazolam HCl 50 ml @ 1 mls/hr Q24H IV 07/27/24 15:15 07/30/24 21:26 13 MLS/HR Fentanyl Citrate 250 ml @ 2.5 mls/hr Q24H IV 07/27/24 15:15 07/30/24 21:27 15 MLS/HR Amino Acids 0 ml @ 0 mls/hr PER PHARMACY IV 07/28/24 09:30 Pantoprazole Sodium 40 mg BID IV 07/28/24 10:00 07/30/24 21:42 40 MG Vancomycin HCl 0 ml @ 0 mls/hr UD IV 07/28/24 19:15 Hydrocortisone Sodium Succinate 100 mg Q8HR IV 07/29/24 14:00 07/30/24 21:42 100 MG Cefiderocol 0.75 gm/Sodium Chloride 100 ml @ 33.333 mls/ hr Q12H IV 07/29/24 21:00 07/30/24 08:54 33.333 MLS/HR Fat Emulsion Intravenous 50 ml/ Sodium Chloride 40 meq/Potassium Phosphate 20 meq/ Magnesium Sulfate 8 meq/ Multivitamins 10 ml/Amino Acids/ Dextrose 1,076.5455 ml @ 45 mls/hr [id number] IV 07/30/24 22:00 07/31/24 21:59 PHYSICAL EXAM: - GENERAL: Alert and oriented x 3. No acute distress. Well-nourished. - EYES: EOMI. Anicteric. - HENT: Moist mucous membranes. No scleral icterus. No cervical lymphadenopathy. - LUNGS: Clear to auscultation bilaterally. No accessory muscle use. - CARDIOVASCULAR: Regular rate and rhythm. No murmur. No JVD. - ABDOMEN: Soft, non-tender and non-distended. No palpable masses. - EXTREMITIES: No edema. Non-tender.?SKIN: No rashes or lesions. Warm. - NEUROLOGIC: No focal neurological deficits. CN II-XII grossly intact, but not individually tested - PSYCHIATRIC: Cooperative. Appropriate mood and affect laboratory and microbiology Laboratory Tests 07/30/24 03:23 07/30/24 03:22 Test 07/30/24 03:22 Range/Units Serum Glucose 226 H 74-106 mg/dL Problem List/Assessment/Plan Problems(with codes): (1) E coli bacteremia (2) Necrotizing fasciitis of lower leg (3) Elevated liver enzymes (4) End-stage renal disease on hemodialysis (5) Chronic kidney disease, unspecified (6) Acute kidney failure, unspecified (7) Severe anemia (8) Sepsis, unspecified organism Problem List/Assessment/Plan ID Problem List: - Septic shock - Necrotizing fasciitis of right lower extremity - End-stage renal disease on hemodialysis - Kidney cancer status post nephrectomy - Coronary artery disease - Hyperlipidemia - Status post CABG - ESBL Bacteria - Pneumonia Assessment This is a 58 y.o. male with a past medical history of kidney cancer status post nephrectomy, end-stage renal disease on hemodialysis, coronary artery disease, hyperlipidemia, and status post CABG, who presents with chest pain, fever, and right thigh tenderness concerning for necrotizing fasciitis. On admission, the patient had a temperature of 104F, hypotension (BP 78/45 mmHg), lactic acid 3.8 mmol/L, elevated AST (3044 U/L) and ALT (560 U/L), WBC count 37,000/mm, hemoglobin 7.5 g/dL, and platelets 62,000/mm. Physical examination notable for right thigh tenderness and generalized weakness. Initial imaging included CT scan of the right thigh showing subcutaneous edema with no gas in soft tissues and small bilateral knee effusions. Chest CT revealed bronchiovascular crowding; underlying pulmonary vascular condition cannot be excluded. Blood cultures are preliminarily positive for gram-negative rods. Respiratory cultures show gram-positive issa. An anaerobic bottle was positive for gram- negative rods. Laboratory studies reveal persistent elevation of liver enzymes with AST 3009 U/L and ALT 1976 U/L. Lactic acid increased to 15 mmol/L, platelets decreased to 32,000/mm. Peripheral smear shows [place] cells. Potassium is elevated at 6 mEq/L. The patient is intubated and sedated for acute hypoxic respiratory failure and altered mental status. 07/10: Undergoing ultra filtration and whitecount is elevated. Pressures are starting to come down since initiating meropenem and platelets are still low at 57 07/11: has an elevated whitecount of 19.1 , LFTs and renal function continue to worsen. blood cultures show ESBL E Coli . chest xray shows a left small bascular airspace disease . Fibrinogen is 433 appears to be adequate and patient is not having any additional signs of bleed . hemoglobin is stable at 8.4 and can hold off on additional transfusions outside of keeping hemoglobin above 7 and platelets above 50 07/12: whitecount is 28.43 , liver enzymes remain elevated at 2955 ALT and 2723 AST , [place] [address] 07/24: extubated 2 days ago tolerated cpap on trickle feeds remains somewhat altered leukocytosis rising, restarted on pressors for last 2 days sacral ulcer present, thigh cellulitis resolved, respiratory culture w/ filamentus fungi 06/25: high fevers 06/26: thick mendoza secretions patient reintubated 07/28: whitecount is 13.6 , repeat blood cultures show young colonies 07/29: whitecount is 11.2 , respiratory cultures from bronchoscopy shows gram negative rods 07/30: whitecount is normalized , respiratory culture shows stenitrophomonus Plan: - continue petrosa 750 milligrams every 12 hours - monitor LFTs daily - keep MAP goal to 65 for patient to maintain blood pressure support - check blood culture to confirm clearance of bacteremia - continue amphotericin B - continue vancomycin empirically in setting of septic shock - Surgical Consultation: Agree with general surgeon that clinical picture favors hematoma vs cellulitis , no signs of necrotizing infection at this time - Supportive Care: Continue vasopressor support with norepinephrine (Levophed) and epinephrine as needed for septic shock. - Laboratory Monitoring: Recheck laboratory values including CBC, CMP, lactic acid, and coagulation profile. Monitor liver function tests. - Renal Management: Coordinate with nephrology for hemodialysis management. - Isolation Precautions: Standard precautions. Authorized and Performed by: sangeetha melendrez Total critical care time: Approximately 73 minutes Due to a high probability of clinically significant, life threatening deterioration, the patient required my highest level of preparedness to intervene emergently and I personally spent this critical care time directly and personally managing the patient. This critical care time included obtaining a history; examining the patient; pulse oximetry; ordering and review of studies; arranging urgent treatment with development of a management plan; evaluation of patient's response to treatment; frequent reassessment; and, discussions with other providers. This critical care time was performed to assess and manage the high probability of imminent, life-threatening deterioration that could result in multi-organ failure. It was exclusive of separately billable procedures and treating other patients and teaching time. Plan discussed with: Other Dietary Evaluation Review Comments: 1) If GI is accessible consider Nepro 1.8 @ 20 ml/hr with current rate of propofol on board 2) If pt remains NPO >7days of NPO status, provide TPN to meet at least 75% of estimated needs 3) Advance pt diet when medically feasible to a Renal Standard diet modified per [employer] recommendations Expected Outcomes/Goals: 1) Pt to receive nutrition support within 7 days of NPO status 2) Pt diet to advance 3) F/U in 2-3 days SANGEETHA MELENDREZ MD Jul 30, 2024 22:04
--- NOTE | 2024-07-30 22:06 | DVHPN2 ---
Progress Note - Dictate Date Seen: Jul 30, 2024 Has the PT tested + for MRSA If YES, has PT been informed?: No Medical Necessity Reason Pt with a Central, PICC or Fol: Yes The following are medically ne: Central Line Subjective Patient was seen and evaluated in follow up in the ICU. Patient is intubated and sedated on ventilator. FiO2 was decreased to 35%. HGB 6.8, HCT 21.3, K 3.4, BUN 35, PURSE FRAMER 3.49. Patient received 1 unit of PRBC and 1 platelets unit ordered. Patient has NGT to LIS. vital signs Vital Sign Date Time Temp Pulse Resp B/P (MAP) Pulse Ox O2 Delivery O2 Flow Rate FiO2 07/30/24 12:00 24 100 Mechanical Ventilator+ 35 35 07/30/24 12:00 94 07/30/24 11:57 117/61 (79) 07/30/24 08:00 98.3 98.3 Total Intake and Output 07/29/24 07/29/24 07/30/24 15:00 23:00 07:00 Intake Total 975.44 ml 1010.409 ml 1016.976 ml Output Total 0 ml Balance 975.44 ml 1010.409 ml 1016.976 ml medications Current Medications Medications Dose Ordered Sig/Rey Route Start Time Stop Time Status Last Admin Dose Admin Vancomycin HCl 0 ml @ 0 mls/hr UD IV 07/08/24 17:00 Cancel Sodium Chloride 10 ml Q8HR IV 07/09/24 06:00 07/30/24 06:06 10 ML Vasopressin 20 units/Sodium Chloride 100 ml @ 9 mls/hr Q11H7M IV 07/09/24 13:15 07/29/24 20:25 6 MLS/HR Norepinephrine Bitartrate 32 mg/ Sodium Chloride 250 ml @ 0.938 mls/ hr Q24H IV 07/09/24 15:30 07/29/24 20:00 13.125 MLS/HR Phenylephrine HCl 80 mg/Sodium Chloride 250 ml @ 7.5 mls/hr Q24H IV 07/09/24 15:45 07/30/24 09:00 29.063 MLS/HR Epinephrine HCl 250 ml @ 7.5 mls/hr Q24H IV 07/09/24 17:00 07/26/24 11:28 7.5 MLS/HR Albumin Human 50 ml @ 100 mls/hr PRN PRN IV 07/13/24 08:30 Cancel Albumin Human 50 ml @ 50 mls/hr PRN PRN IV 07/13/24 08:20 07/28/24 08:10 50 MLS/HR Albuterol 2.5 mg Q6HR HHN 07/18/24 18:00 07/30/24 11:57 2.5 MG Ipratropium [place] 0.5 mg Q6HR NEB 07/18/24 18:00 07/30/24 11:57 0.5 MG Hydralazine HCl 10 mg Q4HR PRN IV 07/19/24 15:30 Hold 07/22/24 09:41 10 MG Labetalol HCl 10 mg Q2HPRN PRN IV 07/22/24 11:15 Bacitracin 1 applic DAILY TOP 07/24/24 10:00 07/30/24 08:56 1 APPLIC Amphotericin B Liposome 250 mg/ Dextrose 187.5 ml @ 93.75 mls/ hr DAILY@2100 IV 07/24/24 21:00 07/29/24 21:19 93.75 MLS/HR Acetaminophen 650 mg DAILY@2030 PO 07/24/24 20:30 07/29/24 21:11 650 MG Diphenhydramine HCl 25 mg DAILY@2029 IV 07/24/24 20:30 07/29/24 21:11 25 MG Diagnostic Test (Pha) 1 strip Q6HR 07/26/24 18:00 07/30/24 11:30 1 STRIP Insulin Human Regular FOLLOW SLIDING SCALE Q6HR SC 07/26/24 18:00 07/30/24 11:36 4 UNITS Dextrose 50 ml UD IV 07/26/24 15:45 Epoetin Justus-epbx 10,000 unit MWF@2100 SC 07/28/24 21:00 07/28/24 21:52 10,000 UNIT Midazolam HCl 50 ml @ 1 mls/hr Q24H IV 07/27/24 15:15 07/30/24 08:57 12 MLS/HR Fentanyl Citrate 250 ml @ 2.5 mls/hr Q24H IV 07/27/24 15:15 07/30/24 09:01 15 MLS/HR Amino Acids 0 ml @ 0 mls/hr PER PHARMACY IV 07/28/24 09:30 Pantoprazole Sodium 40 mg BID IV 07/28/24 10:00 07/30/24 08:55 40 MG Vancomycin HCl 0 ml @ 0 mls/hr UD IV 07/28/24 19:15 Hydrocortisone Sodium Succinate 100 mg Q8HR IV 07/29/24 14:00 07/30/24 06:10 100 MG Sodium Chloride 20 meq/Potassium Chloride 10 meq/ Magnesium Sulfate 4 meq/ Multivitamins 10 ml/Amino Acids/ Dextrose 1,121 ml @ 46 mls/hr [id number] IV 07/29/24 22:00 07/30/24 21:59 07/29/24 22:02 46 MLS/HR Cefiderocol 0.75 gm/Sodium Chloride 100 ml @ 33.333 mls/ hr Q12H IV 07/29/24 21:00 07/30/24 08:54 33.333 MLS/HR objective GENERAL: Intubated on ventilator. Morbidly obese. LUNGS: Decreased breath sounds. CARDIOVASCULAR: Heart sounds are good. ABDOMEN: Soft. EXT: BLE edema. laboratory and microbiology Laboratory Tests 07/30/24 03:23 07/30/24 03:22 Test 07/30/24 03:22 Range/Units Serum Glucose 226 H 74-106 mg/dL Problem List Hypotension secondary to septic shock. Coronary artery disease status post CABG in 2021. History of hypertension. Hyperlipidemia. Hyperkalemia. Acute anemia. Thrombocytopenia. Transaminitis. End-stage renal disease on hemodialysis. Renal cell carcinoma status post left nephrectomy. COPD. Asthma. Morbid obesity. Dilated cardiomyopathy. Metabolic encephalopathy. Assessment/Plan Continued all current supportive medical care. GI prophylactics. IV antibiotics as ordered. Vasopressors for hemodynamic support. Additional plan as per the hospital course. Critical care time of 45 minutes provided to include time spent evaluation of patient at bedside, when appropriate patient/family education for diagnosis, treatment plan, review of pertinent medical information and discussion of care with specialty providers and PCP. Mechanical ventilator parameters, treatment and adjustments have personally been reviewed by me and treatment plan by 3d specialist has also been reviewed. Dietary Evaluation Review Comments: 1) If GI is accessible consider Nepro 1.8 @ 20 ml/hr with current rate of propofol on board 2) If pt remains NPO >7days of NPO status, provide TPN to meet at least 75% of estimated needs 3) Advance pt diet when medically feasible to a Renal Standard diet modified per [employer] recommendations Expected Outcomes/Goals: 1) Pt to receive nutrition support within 7 days of NPO status 2) Pt diet to advance 3) F/U in 2-3 days Plan discussed with: FRIDA Colon MD Jul 30, 2024 12:35
--- NOTE | 2024-07-30 23:19 | DVHPN2 ---
Progress Note - Dictate Date Seen: Jul 30, 2024 Has the PT tested + for MRSA If YES, has PT been informed?: No Medical Necessity Reason Pt with a Central, PICC or Fol: Yes The following are medically ne: Central Line Subjective Patient seen and examined at bedside. Sedated, intubated on mechanical ventilator. Overnight events reviewed. vital signs Vital Sign Date Time Temp Pulse Resp B/P (MAP) Pulse Ox O2 Delivery O2 Flow Rate FiO2 07/30/24 22:31 90 26 120/59 (79) 98 30 07/30/24 21:07 97.6 07/30/24 18:00 Mechanical Ventilator+ Total Intake and Output 07/29/24 07/29/24 07/30/24 15:00 23:00 07:00 Intake Total 975.44 ml 1010.409 ml 1016.976 ml Output Total 0 ml Balance 975.44 ml 1010.409 ml 1016.976 ml medications Current Medications Medications Dose Ordered Sig/Rey Route Start Time Stop Time Status Last Admin Dose Admin Vancomycin HCl 0 ml @ 0 mls/hr UD IV 07/08/24 17:00 Cancel Sodium Chloride 10 ml Q8HR IV 07/09/24 06:00 07/30/24 21:42 10 ML Vasopressin 20 units/Sodium Chloride 100 ml @ 9 mls/hr Q11H7M IV 07/09/24 13:15 07/29/24 20:25 6 MLS/HR Norepinephrine Bitartrate 32 mg/ Sodium Chloride 250 ml @ 0.938 mls/ hr Q24H IV 07/09/24 15:30 07/29/24 20:00 13.125 MLS/HR Phenylephrine HCl 80 mg/Sodium Chloride 250 ml @ 7.5 mls/hr Q24H IV 07/09/24 15:45 07/30/24 09:00 29.063 MLS/HR Epinephrine HCl 250 ml @ 7.5 mls/hr Q24H IV 07/09/24 17:00 07/26/24 11:28 7.5 MLS/HR Albumin Human 50 ml @ 100 mls/hr PRN PRN IV 07/13/24 08:30 Cancel Albumin Human 50 ml @ 50 mls/hr PRN PRN IV 07/13/24 08:20 07/28/24 08:10 50 MLS/HR Albuterol 2.5 mg Q6HR HHN 07/18/24 18:00 07/30/24 18:37 2.5 MG Ipratropium [place] 0.5 mg Q6HR NEB 07/18/24 18:00 07/30/24 18:37 0.5 MG Hydralazine HCl 10 mg Q4HR PRN IV 07/19/24 15:30 Hold 07/22/24 09:41 10 MG Labetalol HCl 10 mg Q2HPRN PRN IV 07/22/24 11:15 Bacitracin 1 applic DAILY TOP 07/24/24 10:00 07/30/24 08:56 1 APPLIC Amphotericin B Liposome 250 mg/ Dextrose 187.5 ml @ 93.75 mls/ hr DAILY@2100 IV 07/24/24 21:00 07/29/24 21:19 93.75 MLS/HR Acetaminophen 650 mg DAILY@2030 PO 07/24/24 20:30 07/30/24 20:07 650 MG Diphenhydramine HCl 25 mg DAILY@2030 IV 07/24/24 20:30 07/30/24 20:04 25 MG Diagnostic Test (Pha) 1 strip Q6HR 07/26/24 18:00 07/30/24 17:17 1 STRIP Insulin Human Regular FOLLOW SLIDING SCALE Q6HR SC 07/26/24 18:00 07/30/24 17:22 2 UNITS Dextrose 50 ml UD IV 07/26/24 15:45 Epoetin Justus-epbx 10,000 unit MWF@2100 SC 07/28/24 21:00 07/30/24 21:18 10,000 UNIT Midazolam HCl 50 ml @ 1 mls/hr Q24H IV 07/27/24 15:15 07/30/24 21:26 13 MLS/HR Fentanyl Citrate 250 ml @ 2.5 mls/hr Q24H IV 07/27/24 15:15 07/30/24 21:27 15 MLS/HR Amino Acids 0 ml @ 0 mls/hr PER PHARMACY IV 07/28/24 09:30 Pantoprazole Sodium 40 mg BID IV 07/28/24 10:00 07/30/24 21:42 40 MG Vancomycin HCl 0 ml @ 0 mls/hr UD IV 07/28/24 19:15 Hydrocortisone Sodium Succinate 100 mg Q8HR IV 07/29/24 14:00 07/30/24 21:42 100 MG Cefiderocol 0.75 gm/Sodium Chloride 100 ml @ 33.333 mls/ hr Q12H IV 07/29/24 21:00 07/30/24 08:54 33.333 MLS/HR Fat Emulsion Intravenous 50 ml/ Sodium Chloride 40 meq/Potassium Phosphate 20 meq/ Magnesium Sulfate 8 meq/ Multivitamins 10 ml/Amino Acids/ Dextrose 1,076.5455 ml @ 45 mls/hr [id number] IV 07/30/24 22:00 07/31/24 21:59 objective Gen.: Patient lying in bed in medical ICU. Sedated, intubated on mechanical ventilator. Head: Normocephalic, atraumatic. Eyes: PERRLA. Ears: Normal external anatomy. Throat: Endotracheal tube and orogastric tube in place. Neck: Supple, trachea midline. Chest: Transmitted breath sounds bilaterally. Decreased air entry bilaterally. No wheezing. Bibasilar crackles. Cardiovascular: Positive S1, positive S2. Regular rate and rhythm. Abdomen: Positive bowel sounds in all 4 quadrants. Soft, nontender, nondistended. : [place] in place. Normal external genitalia. Rectal: Deferred. Skin: Warm, dry. Intact. Extremities: 2+ radial pulses bilaterally. No lower extremity edema. Neuro: Sedated. laboratory and microbiology Laboratory Tests 07/30/24 03:23 07/30/24 03:22 Test 07/30/24 03:22 Range/Units Serum Glucose 226 H 74-106 mg/dL Assessment/Plan Impression: Acute hypoxic respiratory failure On mechanical ventilator Pulmonary edema Necrotizing fasciitis Septic shock Morbid obesity Events: Remains on vent support On AC mode with RR 24, VT 400, PEEP 8, FiO2 40 -->30% Sedated on Versed, Fentanyl. Continue bronchodilators Continue antibiotics Stress-dose steroids On multiple pressors for hemodynamic support On Wojciech-Synephrine 30 mcg/min, Levophed 8 mcg/min Titrate to keep MAP above 65 mmHg/SBP above 90 mmHg. Off vasopressin Improved pressor requirements Monitor hemodynamics S/p bronchoscopy 07/27/24 - cleared secretions from RUL/RLL + ASHLEY/lingula/LLL. Follow up GI recs Monitor hemoglobin TPN/Clinimix for nutritional support Monitor hemoglobin Monitor platelet count Head of bed elevation Aspiration precautions. Monitor WBC Wound care Recommend PT eval. HD per Nephrology Monitor renal function Monitor electrolytes. Supplement as necessary. Nephrology recommendations appreciated Awaiting family decision on goals of care. U/S Doppler of left upper extremity negative for DVT. 07/17/24 - S/p therapeutic bronchoscopy w/ RLL BAL - cleared mucous plugging from L6-L10 and R6-R10 See separate procedure note for details. Labs and imaging reviewed. Rest of plan as noted below. Plan: s/p intubation on 07/27/24 On mechanical ventilator; AC mode with RR 24, VT 400, PEEP 8, FiO2 30% Sedated on Versed, Fentanyl. On multiple pressors for hemodynamic support Titrate to keep MAP above 65 mmHg/SBP above 90 mmHg. Monitor hemodynamics Continue antibiotics. F/u cultures. Monitor renal function Monitor electrolytes. Supplement as necessary. Monitor ins and outs. GI prophylaxis. DVT prophylaxis. Prognosis: Poor given patient's multiple co-morbidities. Condition: Critical Rest of plan per hospitalist and other consultants. A total of 35 minutes of critical care time was spent reviewing the patient record, examining the patient, making a diagnostic and therapeutic plan, discussing this plan with the medical personnel, following up on diagnostic studies and following the patient for clinical stability excluding any and all procedures. At least 50% of this time was spent in direct, [id number] contact. Thank you Dr. Johnson, for allowing me to participate in this patient's care. Further recommendations will depend on the patient's clinical course. Please do not hesitate to contact me if you have any questions or concerns. This medical document was created using an electronic medical record system with [employer] dictation system. Although these documentations are being carefully reviewed, there may still be some phonetic and typographical changes. The errors are purely typographical, due to imperfection on the software program, and do not reflect any compromise in the patient's medical care. Dietary Evaluation Review Comments: 1) If GI is accessible consider Nepro 1.8 @ 20 ml/hr with current rate of propofol on board 2) If pt remains NPO >7days of NPO status, provide TPN to meet at least 75% of estimated needs 3) Advance pt diet when medically feasible to a Renal Standard diet modified per [employer] recommendations Expected Outcomes/Goals: 1) Pt to receive nutrition support within 7 days of NPO status 2) Pt diet to advance 3) F/U in 2-3 days Plan discussed with: Other (RN) Critical Care Time(min): 35 EB DEJESUS MD Jul 30, 2024 23:19
[2024-07-30] MEDS: POTASSIUM PHOSPHATE IV NR (23:22)
[2024-07-30] MEDS: [UNRECOGNIZED DRUG - OTHER] IV NR (23:22)
[2024-07-30] MEDS: SODIUM CHLORIDE IV NR (23:22)
[2024-07-30] MEDS: FAT EMULSION IV NR (23:22)
[2024-07-31] VITALS (120 sets, daily range): BP systolic 89–221; BP diastolic 35–128; PULSE 85–111; RESP 8–29; TEMP 97.2–99; O2SAT 95–100
[2024-07-31 04:07] LABS: Basophils # (auto) 0 10 ^3/uL (0-0.2); Basophils % (auto) 0.2 % (0.0-2.0); Eosinophils # (auto) 0.1 10 ^3/uL (0-0.8); Eosinophils % (auto) 0.9 % (0.0-7.0); Hemoglobin 8.5 g/dL (13.5-17.5); Lymphocytes # (auto) 0.7 10 ^3/uL (0.4-5.4); Nucleated Red Blood Cells % 0.1 %
[2024-07-31 04:09] LABS: Hematocrit 25.1 % (41.0-53.0); Lymphocytes % (auto) 6.8 % (10.0-50.0); Mean Corpuscular Hemoglobin 33.8 pg (28.0-32.0); Mean Corpuscular Hgb Conc. 33.8 g/dL (32.0-36.0); Mean Corpuscular Volume 99.9 fL (80.0-100.0); Monocytes # (auto) 1.2 10 ^3/uL (0-1.3); Monocytes % (auto) 11.9 % (0.0-12.0); Neutrophils # (auto) 7.8 10 ^3/uL (1.6-8.6); Neutrophils % (auto) 80.2 % (37.0-80.0); Platelet Count (auto) 34 10^3/uL (140-450); Red Blood Cells 2.51 10^6/uL (4.5-5.90); Red Cell Distribution Width 20.5 % (11.8-14.3); White Blood Cell 9.7 10^3/uL (4.4-10.8)
[2024-07-31 04:21] LABS: Alanine Aminotransferase 25 U/L (7-40); Alkaline Phosphatase 112 U/L (46-116); Anion Gap 12 (5-15); BUN/Creatinine Ratio 12.3 (10.0-20.0); Carbon Dioxide 24 mmol/L (20-31); Chloride 99 mmol/L (98-107); Magnesium 1.9 mg/dL (1.6-2.6)
[2024-07-31 04:22] LABS: Phosphorus 4.5 mg/dL (2.4-5.1); Total Protein 5.9 g/dL (5.7-8.2)
[2024-07-31 04:24] LABS: Aspartate Aminotransferase 88 U/L (13-40); Bilirubin, Total 9.5 mg/dL (0.2-1.0); Blood Urea Nitrogen 50 mg/dL (9-23); Calcium 8.7 mg/dL (8.7-10.4); Glucose 133 mg/dL (74-106); Potassium 3.4 mmol/L (3.5-5.1); Sodium 135 mmol/L (136-145)
--- NOTE | 2024-07-31 05:58 | DVH ---
EXAM: XY CHEST PORTABLE Indication: pna Technique: Single frontal view of the chest was obtained Comparison: XY CHEST PORTABLE on DOS: 07/28/24, XY CHEST PORTABLE on DOS: 07/27/24, XY CHEST PORTABLE o n DOS: 07/27/24, XY CHEST PORTABLE on DOS: 07/27/24, XY CHEST PORTABLE on DOS: 07/26/24 FINDINGS: Lines and Tubes: Endotracheal tube is 0.8 cm above the quin. Recommend retraction. Other lines an d tubes in appropriate position. Lungs: Low lung volumes with bibasilar opacities. Pleura: No effusion. No pneumothorax. Cardiomediastinal contours: Unchanged. Bones: No acute osseous abnormality. IMPRESSION: Endotracheal tube is 0.8 cm above the quin. Recommend retraction.
[2024-07-31 07:02] LABS: Base Excess -3.9 mmol/L (-2.0-3.0)
--- NOTE | 2024-07-31 07:02 | DVHPN2 ---
Subjective Intubated sedated Reviewed: Care Plan, H&P, Labs, Medications Changes from previous H/P or p: No Changes General: Per HPI Eyes: No Pain, No Vision change, No Conjunctivae inflammation, No Eyelid inflammation, No Other, No Redness ENT: No Ear pain, No Ear discharge, No Nose pain, No Nose discharge, No Nose congestion, No Mouth pain, No Mouth swelling, No Throat pain, No Throat swelling, No Other Cardiovascular: Chest Pain Respiratory: Cough Gastrointestinal: No Nausea, No Vomiting, No Abdominal Pain, No Diarrhea, No Constipation, No Melena, No Hematochezia, No Other Genitourinary: No Dysuria, No Frequency, No Incontinence, No Hematuria, No Retention, No Other Musculoskeletal: other, leg pain Skin: Other Objective Vitals Vital Signs Date Time Temp Pulse Resp B/P (MAP) Pulse Ox O2 Delivery O2 Flow Rate FiO2 07/31/24 05:15 101 21 109/56 (73) 100 105/53 (70) 07/31/24 04:18 30 07/31/24 04:00 98.0 98.0 07/30/24 20:00 Mechanical Ventilator+ Intake/Output Intake and Output 07/31/24 07:00 Intake Total 1678.938 ml Output Total 450 ml Balance 1228.938 ml Intake Oral 0 ml IV Total 1178.938 ml Other 500 ml Output Urine Total 0 ml Gastric Drainage Total 450 ml # Bowel Movements 1 General Appearance: Alert, moderate distress, Other HEENT: PERRLA Lungs: Other (Patient on BiPAP) Cardiovascular: Regular rate, Normal S1, Normal S2 Abdomen: Normal bowel sounds, Soft, No tenderness Musculoskeletal: Other (No motor movement) Neuro: Cranial nerves 3-12 NL, Other (Unable to assess) Skin: Wounds (See nurse notes and pictures) Psych/Mental Status: Other (Unable to assess) Medications Current Medications Medications Dose Ordered Sig/Rey Route Start Time Stop Time Status Last Admin Dose Admin Vancomycin HCl 0 ml @ 0 mls/hr UD IV 07/08/24 17:00 Cancel Sodium Chloride 10 ml Q8HR IV 07/09/24 06:00 07/30/24 21:42 10 ML Vasopressin 20 units/Sodium Chloride 100 ml @ 9 mls/hr Q11H7M IV 07/09/24 13:15 07/29/24 20:25 6 MLS/HR Norepinephrine Bitartrate 32 mg/ Sodium Chloride 250 ml @ 0.938 mls/ hr Q24H IV 07/09/24 15:30 07/29/24 20:00 13.125 MLS/HR Phenylephrine HCl 80 mg/Sodium Chloride 250 ml @ 7.5 mls/hr Q24H IV 07/09/24 15:45 07/30/24 09:00 29.063 MLS/HR Epinephrine HCl 250 ml @ 7.5 mls/hr Q24H IV 07/09/24 17:00 07/26/24 11:28 7.5 MLS/HR Albumin Human 50 ml @ 100 mls/hr PRN PRN IV 07/13/24 08:30 Cancel Albumin Human 50 ml @ 50 mls/hr PRN PRN IV 07/13/24 08:20 07/28/24 08:10 50 MLS/HR Albuterol 2.5 mg Q6HR HHN 07/18/24 18:00 07/31/24 00:14 2.5 MG Ipratropium [place] 0.5 mg Q6HR NEB 07/18/24 18:00 07/31/24 00:14 0.5 MG Hydralazine HCl 10 mg Q4HR PRN IV 07/19/24 15:30 Hold 07/22/24 09:41 10 MG Labetalol HCl 10 mg Q2HPRN PRN IV 07/22/24 11:15 Bacitracin 1 applic DAILY TOP 07/24/24 10:00 07/30/24 08:56 1 APPLIC Amphotericin B Liposome 250 mg/ Dextrose 187.5 ml @ 93.75 mls/ hr DAILY@2099 IV 07/24/24 21:00 07/30/24 22:59 93.75 MLS/HR Acetaminophen 650 mg DAILY@2029 PO 07/24/24 20:30 07/30/24 20:07 650 MG Diphenhydramine HCl 25 mg DAILY@2029 IV 07/24/24 20:30 07/30/24 20:04 25 MG Diagnostic Test (Pha) 1 strip Q6HR 07/26/24 18:00 07/31/24 06:11 1 STRIP Insulin Human Regular FOLLOW SLIDING SCALE Q6HR SC 07/26/24 18:00 07/31/24 06:10 2 UNITS Dextrose 50 ml UD IV 07/26/24 15:45 Epoetin Justus-epbx 10,000 unit MWF@2100 SC 07/28/24 21:00 07/30/24 21:18 10,000 UNIT Midazolam HCl 50 ml @ 1 mls/hr Q24H IV 07/27/24 15:15 07/31/24 04:35 13 MLS/HR Fentanyl Citrate 250 ml @ 2.5 mls/hr Q24H IV 07/27/24 15:15 07/30/24 21:27 15 MLS/HR Amino Acids 0 ml @ 0 mls/hr PER PHARMACY IV 07/28/24 09:30 Pantoprazole Sodium 40 mg BID IV 07/28/24 10:00 07/30/24 21:42 40 MG Vancomycin HCl 0 ml @ 0 mls/hr UD IV 07/28/24 19:15 Hydrocortisone Sodium Succinate 100 mg Q8HR IV 07/29/24 14:00 07/31/24 06:09 100 MG Cefiderocol 0.75 gm/Sodium Chloride 100 ml @ 33.333 mls/ hr Q12H IV 07/29/24 21:00 07/31/24 01:39 33.333 MLS/HR Fat Emulsion Intravenous 50 ml/ Sodium Chloride 40 meq/Potassium Phosphate 20 meq/ Magnesium Sulfate 8 meq/ Multivitamins 10 ml/Amino Acids/ Dextrose 1,076.5455 ml @ 45 mls/hr [id number] IV 07/30/24 22:00 07/31/24 21:59 07/30/24 23:22 45 MLS/HR Laboratory Results Laboratory Tests 07/31/24 03:20 Chemistry Test 07/31/24 03:20 Albumin 3.0 g/dL (3.2-4.8) L Calcium Level 8.7 mg/dL (8.7-10.4) Magnesium Level 1.9 mg/dL (1.6-2.6) Phosphorus Level 4.5 mg/dL (2.4-5.1) Total Protein 5.9 g/dL (5.7-8.2) LFT Test 07/31/24 03:20 Alanine Aminotransferase (ALT) 25 U/L (7-40) Alkaline Phosphatase 112 U/L (46-116) Aspartate Amino Transferase (AST) 88 U/L (13-40) H Total Bilirubin 9.5 mg/dL (0.2-1.0) H Blood Gas Results Test 07/30/24 07:50 Arterial Blood pH 7.399 (7.350-7.450) FiO2 % 40.0 Microbiology Microbiology Date/Time Source Procedure Growth Status 07/27/24 16:00 Sputum Gram Stain - Final Resulted 07/27/24 16:00 Respiratory Culture - Preliminary Stenotrophomonas maltophilia Resulted 07/26/24 14:50 Blood Blood Culture - Preliminary NO GROWTH AFTER 72 HOURS OF INCUBATION. Resulted 07/09/24 19:55 Trachea Gram Stain - Final Complete 07/09/24 19:55 Trachea Respiratory Culture - Final Complete Labs and/or images reviewed: Labs reviewed by me, Image(s) reviewed by me Assessment/Plan Assessment/Plan Impression: -septic shock -right leg cellulitis,? Necrotizing fasciitis -ESRD with hemodialysis, previous nephrectomy -coronary artery disease with previous CABG -dilated cardiomyopathy -acute on chronic systolic and diastolic heart failure with ejection fraction 25% -morbid obesity -hypocoagulable state -thrombocytopenia -hypoalbuminemia Plan: -events: Patient on minimal vasopressor therapy at this time. White blood cell count normal. Repeat sputum culture growing stenotrophomonas maltophilia. Patient was currently on Fetroja. At this time there is no fungal growth in sputum culture. Defer to Infectious Disease to continue amphotericin B -coffee-ground gastric secretions resolved. Attempt to restart tube feeding and taper off TPN. -continue Protonix -nephrology consultation : Managing ESRD, HD -pulmonary consultation: Continue current ventilator settings -infectious disease consultation: Continue antimicrobials per their discretion. -wound care right lower extremity -continue current sedation -PUD, DVT prophylaxis -repeat chest x-ray and labs in a.m. Critical care time spent with patient discussing and formulating plan of care: 90 minutes. This does not include time spent performing procedures. This medical document was created using an electronic medical record system with [employer] dictation system. Although this document has been carefully reviewed, there may still be some phonetic and typographical errors. These areas are purely typographical due to imperfections of the software programs, and do not reflect any compromise in the patient's medical care. Plan discussed with: Patient, Other (RN) My Orders Orders - MAYRA CALL NP Procedure Category Date Status Time Complete Blood Count LAB 08/01/24 Verified 05:00 Complete Blood Count LAB 08/02/24 Verified 05:00 Complete Blood Count LAB 08/03/24 Verified 05:00 Complete Blood Count LAB 08/04/24 Verified 05:00 Chest Portable XY 07/31/24 Resulted 05:00 Chest Portable XY 08/01/24 Logged 05:00 Chest Portable XY 08/02/24 Logged 05:00 Chest Portable XY 08/03/24 Logged 05:00 Chest Portable XY 08/04/24 Logged 05:00 Abg W/ Co-Ox RT 07/31/24 Logged 04:00 Amino Acid PHA 07/30/24 In Process Infusion... W/Fat 22:00 Tpn Per Pharmacy EV 07/30/24 In Process 22:00 Date of Service: Jul 31, 2024 Billing Provider: MAYRA CALL NP Common Visit Codes: [id number] CARE 30-74 MIN MAYRA CALL NP Jul 31, 2024 07:02
[2024-07-31] MEDS: POTASSIUM CHL 20MEQ/100ML 100 ML IV ONE ×2 (09:07→12:46)
--- NOTE | 2024-07-31 12:05 | DVHPN2 ---
Progress Note Date Seen: Jul 31, 2024 Has the PT tested + for MRSA If YES, has PT been informed?: No Medical Necessity Reason Pt with a Central, PICC or Fol: Yes The following are medically ne: Central Line Subjective Review of Systems: RESPIRATORY:Abnormal Objective vital signs Vital Sign Date Time Temp Pulse Resp B/P (MAP) Pulse Ox O2 Delivery O2 Flow Rate FiO2 07/31/24 11:15 92 19 117/50 (72) 100 119/59 (79) 07/31/24 10:33 30 07/31/24 10:00 Mechanical Ventilator+ 07/31/24 08:00 99.0 99.0 Total Intake and Output 07/30/24 07/30/24 07/31/24 15:00 23:00 07:00 Intake Total 929 ml 932.875 ml 1361.377 ml Output Total 450 ml Balance 929 ml 482.875 ml 1361.377 ml medications Current Medications Medications Dose Ordered Sig/Rey Route Start Time Stop Time Status Last Admin Dose Admin Vancomycin HCl 0 ml @ 0 mls/hr UD IV 07/08/24 17:00 Cancel Sodium Chloride 10 ml Q8HR IV 07/09/24 06:00 07/31/24 06:00 10 ML Vasopressin 20 units/Sodium Chloride 100 ml @ 9 mls/hr Q11H7M IV 07/09/24 13:15 07/29/24 20:25 6 MLS/HR Norepinephrine Bitartrate 32 mg/ Sodium Chloride 250 ml @ 0.938 mls/ hr Q24H IV 07/09/24 15:30 07/29/24 20:00 13.125 MLS/HR Phenylephrine HCl 80 mg/Sodium Chloride 250 ml @ 7.5 mls/hr Q24H IV 07/09/24 15:45 07/30/24 09:00 29.063 MLS/HR Epinephrine HCl 250 ml @ 7.5 mls/hr Q24H IV 07/09/24 17:00 07/26/24 11:28 7.5 MLS/HR Albumin Human 50 ml @ 100 mls/hr PRN PRN IV 07/13/24 08:30 Cancel Albumin Human 50 ml @ 50 mls/hr PRN PRN IV 07/13/24 08:20 07/28/24 08:10 50 MLS/HR Albuterol 2.5 mg Q6HR HHN 07/18/24 18:00 07/31/24 00:14 2.5 MG Ipratropium [place] 0.5 mg Q6HR NEB 07/18/24 18:00 07/31/24 00:14 0.5 MG Hydralazine HCl 10 mg Q4HR PRN IV 07/19/24 15:30 Hold 07/22/24 09:41 10 MG Labetalol HCl 10 mg Q2HPRN PRN IV 07/22/24 11:15 Bacitracin 1 applic DAILY TOP 07/24/24 10:00 07/31/24 09:08 1 APPLIC Amphotericin B Liposome 250 mg/ Dextrose 187.5 ml @ 93.75 mls/ hr DAILY@2100 IV 07/24/24 21:00 07/30/24 22:59 93.75 MLS/HR Acetaminophen 650 mg DAILY@2029 PO 07/24/24 20:30 07/30/24 20:07 650 MG Diphenhydramine HCl 25 mg DAILY@2030 IV 07/24/24 20:30 07/30/24 20:04 25 MG Diagnostic Test (Pha) 1 strip Q6HR 07/26/24 18:00 07/31/24 06:11 1 STRIP Insulin Human Regular FOLLOW SLIDING SCALE Q6HR SC 07/26/24 18:00 07/31/24 06:10 2 UNITS Dextrose 50 ml UD IV 07/26/24 15:45 Epoetin Justus-epbx 10,000 unit MWF@2100 SC 07/28/24 21:00 07/30/24 21:18 10,000 UNIT Midazolam HCl 50 ml @ 1 mls/hr Q24H IV 07/27/24 15:15 07/31/24 11:32 13 MLS/HR Fentanyl Citrate 250 ml @ 2.5 mls/hr Q24H IV 07/27/24 15:15 07/30/24 21:27 15 MLS/HR Amino Acids 0 ml @ 0 mls/hr PER PHARMACY IV 07/28/24 09:30 Pantoprazole Sodium 40 mg BID IV 07/28/24 10:00 07/31/24 09:08 40 MG Vancomycin HCl 0 ml @ 0 mls/hr UD IV 07/28/24 19:15 Hydrocortisone Sodium Succinate 100 mg Q8HR IV 07/29/24 14:00 07/31/24 06:09 100 MG Cefiderocol 0.75 gm/Sodium Chloride 100 ml @ 33.333 mls/ hr Q12H IV 07/29/24 21:00 07/31/24 09:08 33.333 MLS/HR Fat Emulsion Intravenous 50 ml/ Sodium Chloride 40 meq/Potassium Phosphate 20 meq/ Magnesium Sulfate 8 meq/ Multivitamins 10 ml/Amino Acids/ Dextrose 1,076.5455 ml @ 45 mls/hr [id number] IV 07/30/24 22:00 07/31/24 21:59 07/30/24 23:22 45 MLS/HR Fat Emulsion Intravenous 50 ml/ Sodium Chloride 40 meq/Potassium Chloride 20 meq/ Magnesium Sulfate 12 meq/ Multivitamins 10 ml/Amino Acids/ Dextrose 1,083 ml @ 45 mls/hr Q24H4M IV 07/31/24 22:00 08/01/24 21:59 Examination: GENERAL:Abnormal, LUNGS:Abnormal, ABDOMEN:Abnormal, SKIN:Abnormal laboratory and microbiology Laboratory Tests 07/31/24 03:20 Test 07/31/24 03:20 Range/Units Serum Glucose 133 H 74-106 mg/dL Microbiology Date/Time Source Procedure Growth Status 07/27/24 16:00 Sputum Gram Stain - Final Resulted 07/27/24 16:00 Respiratory Culture - Preliminary Stenotrophomonas maltophilia Resulted 07/26/24 14:50 Blood Blood Culture - Preliminary NO GROWTH AFTER 72 HOURS OF INCUBATION. Resulted 07/09/24 19:55 Trachea Gram Stain - Final Complete 07/09/24 19:55 Trachea Respiratory Culture - Final Complete Problem List/Assessment/Plan Problem List/Assessment/Plan ESRD on HD acute respiratory failure-> reintubated uremic acidosis / lactic acidosis septic shock with gram-negative anabella bacteremia fungal infection lower extremity wound anemia hypoglycemia hyperkalemia thrombocytopenia severe fluid overload HD today remains hypotensive on multiple pressors pressors to keep MAP > 65 fluid removal as tolerated Ecoli bacteremia on merrem ABX clinically unstable, prognosis is poor Plan discussed with: Other Dietary Evaluation Review Comments: 1) If GI is accessible consider Nepro 1.8 @ 20 ml/hr with current rate of propofol on board 2) If pt remains NPO >7days of NPO status, provide TPN to meet at least 75% of estimated needs 3) Advance pt diet when medically feasible to a Renal Standard diet modified per CULINARY INSTRUCTOR recommendations Expected Outcomes/Goals: 1) Pt to receive nutrition support within 7 days of NPO status 2) Pt diet to advance 3) F/U in 2-3 days Critical Care Time (mins): 33 LULU RICHARD MD Jul 31, 2024 12:04
[2024-07-31] MEDS: ALBUMIN 25% 100 ML IV ONE ×2 (14:50→14:51)
[2024-07-31] MEDS: SODIUM CHL 0.9% 1000 ML BAG XX ONE (17:20)
[2024-07-31] MEDS: [UNRECOGNIZED DRUG - OTHER] IV NR (21:58)
[2024-07-31] MEDS: FAT EMULSION IV NR (21:58)
[2024-07-31] MEDS: SODIUM CHLORIDE IV NR (21:58)
[2024-07-31] MEDS: POTASSIUM CHLORIDE IV NR (21:58)
[2024-07-31] MEDS: SULFAMETH-TRIMETH 80/16MG-ML 15 ML in D5W 5% 500 ML IV SCH (22:00)
--- NOTE | 2024-07-31 22:54 | DVHPN2 ---
Consult Progress Note Date Seen: Jul 31, 2024 Subjective Patient reports: Other (is off pressures and tolerating dialysis and only needing pressure for a brief period while getting dialysis procedure , on minimal vent , diminish breath sounds in bases . right lower extremity has dry skin patches and skin peeling ) Objective vital signs Vital Sign Date Time Temp Pulse Resp B/P (MAP) Pulse Ox O2 Delivery O2 Flow Rate FiO2 07/31/24 22:03 93 29 115/52 (73) 97 30 07/31/24 21:07 97.7 07/31/24 20:00 Mechanical Ventilator+ Total Intake and Output 07/30/24 07/30/24 07/31/24 15:00 23:00 07:00 Intake Total 929 ml 932.875 ml 1361.377 ml Output Total 450 ml Balance 929 ml 482.875 ml 1361.377 ml medications Current Medications Medications Dose Ordered Sig/Rey Route Start Time Stop Time Status Last Admin Dose Admin Vancomycin HCl 0 ml @ 0 mls/hr UD IV 07/08/24 17:00 Cancel Sodium Chloride 10 ml Q8HR IV 07/09/24 06:00 07/31/24 22:04 10 ML Vasopressin 20 units/Sodium Chloride 100 ml @ 9 mls/hr Q11H7M IV 07/09/24 13:15 07/29/24 20:25 6 MLS/HR Norepinephrine Bitartrate 32 mg/ Sodium Chloride 250 ml @ 0.938 mls/ hr Q24H IV 07/09/24 15:30 07/29/24 20:00 13.125 MLS/HR Phenylephrine HCl 80 mg/Sodium Chloride 250 ml @ 7.5 mls/hr Q24H IV 07/09/24 15:45 07/30/24 09:00 29.063 MLS/HR Epinephrine HCl 250 ml @ 7.5 mls/hr Q24H IV 07/09/24 17:00 07/26/24 11:28 7.5 MLS/HR Albumin Human 50 ml @ 100 mls/hr PRN PRN IV 07/13/24 08:30 Cancel Albumin Human 50 ml @ 50 mls/hr PRN PRN IV 07/13/24 08:20 07/28/24 08:10 50 MLS/HR Albuterol 2.5 mg Q6HR HHN 07/18/24 18:00 2/1/25 18:17 2.5 MG Ipratropium [place] 0.5 mg Q6HR NEB 07/18/24 18:00 07/31/24 18:17 0.5 MG Hydralazine HCl 10 mg Q4HR PRN IV 07/19/24 15:30 Hold 07/22/24 09:41 10 MG Labetalol HCl 10 mg Q2HPRN PRN IV 07/22/24 11:15 Bacitracin 1 applic DAILY TOP 07/24/24 10:00 07/31/24 09:08 1 APPLIC Amphotericin B Liposome 250 mg/ Dextrose 187.5 ml @ 93.75 mls/ hr DAILY@2100 IV 07/24/24 21:00 07/31/24 21:46 93.75 MLS/HR Acetaminophen 650 mg DAILY@2029 PO 07/24/24 20:30 07/31/24 21:07 650 MG Diphenhydramine HCl 25 mg DAILY@2030 IV 07/24/24 20:30 07/31/24 21:06 25 MG Diagnostic Test (Pha) 1 strip Q6HR 07/26/24 18:00 07/31/24 17:29 1 STRIP Insulin Human Regular FOLLOW SLIDING SCALE Q6HR SC 07/26/24 18:00 07/31/24 06:10 2 UNITS Dextrose 50 ml UD IV 07/26/24 15:45 Epoetin Justus-epbx 10,000 unit MWF@2100 SC 07/28/24 21:00 07/30/24 21:18 10,000 UNIT Midazolam HCl 50 ml @ 1 mls/hr Q24H IV 07/27/24 15:15 07/31/24 19:02 13 MLS/HR Fentanyl Citrate 250 ml @ 2.5 mls/hr Q24H IV 07/27/24 15:15 07/31/24 17:22 15 MLS/HR Amino Acids 0 ml @ 0 mls/hr PER PHARMACY IV 07/28/24 09:30 Pantoprazole Sodium 40 mg BID IV 07/28/24 10:00 07/31/24 22:04 40 MG Vancomycin HCl 0 ml @ 0 mls/hr UD IV 07/28/24 19:15 Cancel Hydrocortisone Sodium Succinate 100 mg Q8HR IV 07/29/24 14:00 07/31/24 22:04 100 MG Fat Emulsion Intravenous 50 ml/ Sodium Chloride 40 meq/Potassium Chloride 20 meq/ Magnesium Sulfate 12 meq/ Multivitamins 10 ml/Amino Acids/ Dextrose 1,083 ml @ 45 mls/hr Q24H4M IV 07/31/24 22:00 08/01/24 21:59 07/31/24 21:58 45 MLS/HR Trimethoprim/ Sulfamethoxazole 15 ml/Dextrose 515 ml @ 343.333 mls/hr DAILY@DINNER IV 07/31/24 22:00 PHYSICAL EXAM: - GENERAL: Alert and oriented x 3. No acute distress. Well-nourished. - EYES: EOMI. Anicteric. - HENT: Moist mucous membranes. No scleral icterus. No cervical lymphadenopathy. - LUNGS: Clear to auscultation bilaterally. No accessory muscle use. - CARDIOVASCULAR: Regular rate and rhythm. No murmur. No JVD. - ABDOMEN: Soft, non-tender and non-distended. No palpable masses. - EXTREMITIES: No edema. Non-tender.?SKIN: No rashes or lesions. Warm. - NEUROLOGIC: No focal neurological deficits. CN II-XII grossly intact, but not individually tested - PSYCHIATRIC: Cooperative. Appropriate mood and affect laboratory and microbiology Laboratory Tests 07/31/24 03:20 Test 07/31/24 03:20 Range/Units Serum Glucose 133 H 74-106 mg/dL Problem List/Assessment/Plan Problems(with codes): (1) E coli bacteremia (2) Coffee ground emesis (3) Necrotizing fasciitis of lower leg (4) Elevated liver enzymes (5) End-stage renal disease on hemodialysis (6) Acute kidney failure, unspecified (7) Chronic kidney disease, unspecified (8) Severe anemia Problem List/Assessment/Plan ID Problem List: - Septic shock - Necrotizing fasciitis of right lower extremity - End-stage renal disease on hemodialysis - Kidney cancer status post nephrectomy - Coronary artery disease - Hyperlipidemia - Status post CABG - ESBL Bacteria - Pneumonia Assessment This is a 58 y.o. male with a past medical history of kidney cancer status post nephrectomy, end-stage renal disease on hemodialysis, coronary artery disease, hyperlipidemia, and status post CABG, who presents with chest pain, fever, and right thigh tenderness concerning for necrotizing fasciitis. On admission, the patient had a temperature of 104F, hypotension (BP 78/45 mmHg), lactic acid 3.8 mmol/L, elevated AST (3044 U/L) and ALT (560 U/L), WBC count 37,000/mm, hemoglobin 7.5 g/dL, and platelets 62,000/mm. Physical examination notable for right thigh tenderness and generalized weakness. Initial imaging included CT scan of the right thigh showing subcutaneous edema with no gas in soft tissues and small bilateral knee effusions. Chest CT revealed bronchiovascular crowding; underlying pulmonary vascular condition cannot be excluded. Blood cultures are preliminarily positive for gram-negative rods. Respiratory cultures show gram-positive issa. An anaerobic bottle was positive for gram- negative rods. Laboratory studies reveal persistent elevation of liver enzymes with AST 3009 U/L and ALT 1976 U/L. Lactic acid increased to 15 mmol/L, platelets decreased to 32,000/mm. Peripheral smear shows Elizabeth cells. Potassium is elevated at 6 mEq/L. The patient is intubated and sedated for acute hypoxic respiratory failure and altered mental status. 07/10: Undergoing ultra filtration and whitecount is elevated. Pressures are starting to come down since initiating meropenem and platelets are still low at 57 07/11: has an elevated whitecount of 19.1 , LFTs and renal function continue to worsen. blood cultures show ESBL E Coli . chest xray shows a left small bascular airspace disease . Fibrinogen is 433 appears to be adequate and patient is not having any additional signs of bleed . hemoglobin is stable at 8.4 and can hold off on additional transfusions outside of keeping hemoglobin above 7 and platelets above 50 07/12: whitecount is 28.43 , liver enzymes remain elevated at 2955 ALT and 2723 AST , [place] [id number] 07/24: extubated 2 days ago tolerated cpap on trickle feeds remains somewhat altered leukocytosis rising, restarted on pressors for last 2 days sacral ulcer present, thigh cellulitis resolved, respiratory culture w/ filamentus fungi 06/25: high fevers 06/26: thick mendoza secretions patient reintubated 07/28: whitecount is 13.6 , repeat blood cultures show young colonies 07/29: whitecount is 11.2 , respiratory cultures from bronchoscopy shows gram negative rods 07/30: whitecount is normalized , respiratory culture shows stenitrophomonus 07/31: appears to be clinically improving , growing stenitrophomonus on respiratory cultures thaat are sensitive to bactrum , tolerating dialysis Plan: - Start bactrum 3 milligrams per kilogram 1x a day after given dialysis - Stop petrosa 750 milligrams every 12 hours - monitor LFTs daily - keep MAP goal to 65 for patient to maintain blood pressure support - check blood culture to confirm clearance of bacteremia - continue amphotericin B - continue vancomycin empirically in setting of septic shock - Surgical Consultation: Agree with general surgeon that clinical picture favors hematoma vs cellulitis , no signs of necrotizing infection at this time - Supportive Care: Continue vasopressor support with norepinephrine (Levophed) and epinephrine as needed for septic shock. - Laboratory Monitoring: Recheck laboratory values including CBC, CMP, lactic acid, and coagulation profile. Monitor liver function tests. - Renal Management: Coordinate with nephrology for hemodialysis management. - Isolation Precautions: Standard precautions. Authorized and Performed by: sangeetha melendrez Total critical care time: Approximately 73 minutes Due to a high probability of clinically significant, life threatening deterioration, the patient required my highest level of preparedness to intervene emergently and I personally spent this critical care time directly and personally managing the patient. This critical care time included obtaining a history; examining the patient; pulse oximetry; ordering and review of studies; arranging urgent treatment with development of a management plan; evaluation of patient's response to treatment; frequent reassessment; and, discussions with other providers. This critical care time was performed to assess and manage the high probability of imminent, life-threatening deterioration that could result in multi-organ failure. It was exclusive of separately billable procedures and treating other patients and teaching time. Plan discussed with: Other Dietary Evaluation Review Comments: 1) If GI is accessible consider Nepro 1.8 @ 20 ml/hr with current rate of propofol on board 2) If pt remains NPO >7days of NPO status, provide TPN to meet at least 75% of estimated needs 3) Advance pt diet when medically feasible to a Renal Standard diet modified per [employer]ING MACHINE OPERATOR recommendations Expected Outcomes/Goals: 1) Pt to receive nutrition support within 7 days of NPO status 2) Pt diet to advance 3) F/U in 2-3 days SANGEETHA MELENDREZ MD Jul 31, 2024 22:54
--- NOTE | 2024-07-31 22:57 | DVHPN2 ---
Progress Note - Dictate Date Seen: Jul 31, 2024 Has the PT tested + for MRSA If YES, has PT been informed?: No Medical Necessity Reason Pt with a Central, PICC or Fol: Yes The following are medically ne: Central Line Subjective Patient was seen and evaluated in follow up in the ICU. Patient is intubated and sedated on ventilator. FiO2 is now at 30%. Patient's Venita at bedside. HGB 8.5, HCT 25.1, NA 135, K 3.4, BUN 50, MILLER APPRENTICE 4.06, AST 88. vital signs Vital Sign Date Time Temp Pulse Resp B/P (MAP) Pulse Ox O2 Delivery O2 Flow Rate FiO2 07/31/24 11:15 92 19 117/50 (72) 100 119/59 (79) 07/31/24 10:33 30 07/31/24 10:00 Mechanical Ventilator+ 07/31/24 08:00 99.0 99.0 Total Intake and Output 07/30/24 07/30/24 07/31/24 15:00 23:00 07:00 Intake Total 929 ml 932.875 ml 1361.377 ml Output Total 450 ml Balance 929 ml 482.875 ml 1361.377 ml medications Current Medications Medications Dose Ordered Sig/Rey Route Start Time Stop Time Status Last Admin Dose Admin Vancomycin HCl 0 ml @ 0 mls/hr UD IV 07/08/24 17:00 Cancel Sodium Chloride 10 ml Q8HR IV 07/09/24 06:00 07/31/24 06:00 10 ML Vasopressin 20 units/Sodium Chloride 100 ml @ 9 mls/hr Q11H7M IV 07/09/24 13:15 07/29/24 20:25 6 MLS/HR Norepinephrine Bitartrate 32 mg/ Sodium Chloride 250 ml @ 0.938 mls/ hr Q24H IV 07/09/24 15:30 07/29/24 20:00 13.125 MLS/HR Phenylephrine HCl 80 mg/Sodium Chloride 250 ml @ 7.5 mls/hr Q24H IV 07/09/24 15:45 07/30/24 09:00 29.063 MLS/HR Epinephrine HCl 250 ml @ 7.5 mls/hr Q24H IV 07/09/24 17:00 07/26/24 11:28 7.5 MLS/HR Albumin Human 50 ml @ 100 mls/hr PRN PRN IV 07/13/24 08:30 Cancel Albumin Human 50 ml @ 50 mls/hr PRN PRN IV 07/13/24 08:20 07/28/24 08:10 50 MLS/HR Albuterol 2.5 mg Q6HR HHN 07/18/24 18:00 07/31/24 00:14 2.5 MG Ipratropium [place] 0.5 mg Q6HR NEB 07/18/24 18:00 07/31/24 00:14 0.5 MG Hydralazine HCl 10 mg Q4HR PRN IV 07/19/24 15:30 Hold 07/22/24 09:41 10 MG Labetalol HCl 10 mg Q2HPRN PRN IV 07/22/24 11:15 Bacitracin 1 applic DAILY TOP 07/24/24 10:00 07/31/24 09:08 1 APPLIC Amphotericin B Liposome 250 mg/ Dextrose 187.5 ml @ 93.75 mls/ hr DAILY@2100 IV 07/24/24 21:00 07/30/24 22:59 93.75 MLS/HR Acetaminophen 650 mg DAILY@2030 PO 07/24/24 20:30 07/30/24 20:07 650 MG Diphenhydramine HCl 25 mg DAILY@2029 IV 07/24/24 20:30 07/30/24 20:04 25 MG Diagnostic Test (Pha) 1 strip Q6HR 07/26/24 18:00 07/31/24 06:11 1 STRIP Insulin Human Regular FOLLOW SLIDING SCALE Q6HR SC 07/26/24 18:00 07/31/24 06:10 2 UNITS Dextrose 50 ml UD IV 07/26/24 15:45 Epoetin Justus-epbx 10,000 unit MWF@2100 SC 07/28/24 21:00 07/30/24 21:18 10,000 UNIT Midazolam HCl 50 ml @ 1 mls/hr Q24H IV 07/27/24 15:15 07/31/24 11:32 13 MLS/HR Fentanyl Citrate 250 ml @ 2.5 mls/hr Q24H IV 07/27/24 15:15 07/30/24 21:27 15 MLS/HR Amino Acids 0 ml @ 0 mls/hr PER PHARMACY IV 07/28/24 09:30 Pantoprazole Sodium 40 mg BID IV 07/28/24 10:00 07/31/24 09:08 40 MG Vancomycin HCl 0 ml @ 0 mls/hr UD IV 07/28/24 19:15 Hydrocortisone Sodium Succinate 100 mg Q8HR IV 07/29/24 14:00 07/31/24 06:09 100 MG Cefiderocol 0.75 gm/Sodium Chloride 100 ml @ 33.333 mls/ hr Q12H IV 07/29/24 21:00 07/31/24 09:08 33.333 MLS/HR Fat Emulsion Intravenous 50 ml/ Sodium Chloride 40 meq/Potassium Phosphate 20 meq/ Magnesium Sulfate 8 meq/ Multivitamins 10 ml/Amino Acids/ Dextrose 1,076.5455 ml @ 45 mls/hr Q85M27K IV 07/30/24 22:00 07/31/24 21:59 07/30/24 23:22 45 MLS/HR Fat Emulsion Intravenous 50 ml/ Sodium Chloride 40 meq/Potassium Chloride 20 meq/ Magnesium Sulfate 12 meq/ Multivitamins 10 ml/Amino Acids/ Dextrose 1,083 ml @ 45 mls/hr Q24H4M IV 07/31/24 22:00 08/01/24 21:59 objective GENERAL: Intubated on ventilator. Morbidly obese. LUNGS: Decreased breath sounds. CARDIOVASCULAR: Heart sounds are good. ABDOMEN: Soft. EXT: BLE edema. laboratory and microbiology Laboratory Tests 07/31/24 03:20 Test 07/31/24 03:20 Range/Units Serum Glucose 133 H 74-106 mg/dL Problem List Hypotension secondary to septic shock. Coronary artery disease status post CABG in 2021. History of hypertension. Hyperlipidemia. Hyperkalemia. Acute anemia. Thrombocytopenia. Transaminitis. End-stage renal disease on hemodialysis. Renal cell carcinoma status post left nephrectomy. COPD. Asthma. Morbid obesity. Dilated cardiomyopathy. Metabolic encephalopathy. Assessment/Plan Continued all current supportive medical care. GI prophylactics. IV antibiotics as ordered. Vasopressors for hemodynamic support. Additional plan as per the hospital course. Critical care time of 45 minutes provided to include time spent evaluation of patient at bedside, when appropriate patient/family education for diagnosis, treatment plan, review of pertinent medical information and discussion of care with specialty providers and PCP. Mechanical ventilator parameters, treatment and adjustments have personally been reviewed by me and treatment plan by well head pumper has also been reviewed. Dietary Evaluation Review Comments: 1) If GI is accessible consider Nepro 1.8 @ 20 ml/hr with current rate of propofol on board 2) If pt remains NPO >7days of NPO status, provide TPN to meet at least 75% of estimated needs 3) Advance pt diet when medically feasible to a Renal Standard diet modified per GARMENT SUPERVISOR recommendations Expected Outcomes/Goals: 1) Pt to receive nutrition support within 7 days of NPO status 2) Pt diet to advance 3) F/U in 2-3 days Plan discussed with: Other FRIDA SIMMONS MD Jul 31, 2024 12:14
--- NOTE | 2024-07-31 23:36 | DVHPN2 ---
Progress Note - Dictate Date Seen: Jul 31, 2024 Has the PT tested + for MRSA If YES, has PT been informed?: No Medical Necessity Reason Pt with a Central, PICC or Fol: Yes The following are medically ne: Central Line Subjective Patient seen and examined at bedside. Sedated, intubated on mechanical ventilator. Overnight events reviewed. vital signs Vital Sign Date Time Temp Pulse Resp B/P (MAP) Pulse Ox O2 Delivery O2 Flow Rate FiO2 07/31/24 23:15 95 11 110/39 (62) 98 115/53 (73) 07/31/24 22:03 30 07/31/24 21:07 97.7 07/31/24 20:00 Mechanical Ventilator+ Total Intake and Output 07/30/24 07/30/24 07/31/24 15:00 23:00 07:00 Intake Total 929 ml 932.875 ml 1361.377 ml Output Total 450 ml Balance 929 ml 482.875 ml 1361.377 ml medications Current Medications Medications Dose Ordered Sig/Rey Route Start Time Stop Time Status Last Admin Dose Admin Vancomycin HCl 0 ml @ 0 mls/hr UD IV 07/08/24 17:00 Cancel Sodium Chloride 10 ml Q8HR IV 07/09/24 06:00 07/31/24 22:04 10 ML Vasopressin 20 units/Sodium Chloride 100 ml @ 9 mls/hr Q11H7M IV 07/09/24 13:15 07/29/24 20:25 6 MLS/HR Norepinephrine Bitartrate 32 mg/ Sodium Chloride 250 ml @ 0.938 mls/ hr Q24H IV 07/09/24 15:30 07/29/24 20:00 13.125 MLS/HR Phenylephrine HCl 80 mg/Sodium Chloride 250 ml @ 7.5 mls/hr Q24H IV 07/09/24 15:45 07/30/24 09:00 29.063 MLS/HR Epinephrine HCl 250 ml @ 7.5 mls/hr Q24H IV 07/09/24 17:00 07/26/24 11:28 7.5 MLS/HR Albumin Human 50 ml @ 100 mls/hr PRN PRN IV 07/13/24 08:30 Cancel Albumin Human 50 ml @ 50 mls/hr PRN PRN IV 07/13/24 08:20 07/28/24 08:10 50 MLS/HR Albuterol 2.5 mg Q6HR HHN 07/18/24 18:00 07/31/24 18:17 2.5 MG Ipratropium [place] 0.5 mg Q6HR NEB 07/18/24 18:00 07/31/24 18:17 0.5 MG Hydralazine HCl 10 mg Q4HR PRN IV 07/19/24 15:30 Hold 07/22/24 09:41 10 MG Labetalol HCl 10 mg Q2HPRN PRN IV 07/22/24 11:15 Bacitracin 1 applic DAILY TOP 07/24/24 10:00 07/31/24 09:08 1 APPLIC Amphotericin B Liposome 250 mg/ Dextrose 187.5 ml @ 93.75 mls/ hr DAILY@2100 IV 07/24/24 21:00 07/31/24 21:46 93.75 MLS/HR Acetaminophen 650 mg DAILY@2029 PO 07/24/24 20:30 07/31/24 21:07 650 MG Diphenhydramine HCl 25 mg DAILY@2029 IV 07/24/24 20:30 07/31/24 21:06 25 MG Diagnostic Test (Pha) 1 strip Q6HR 07/26/24 18:00 07/31/24 17:29 1 STRIP Insulin Human Regular FOLLOW SLIDING SCALE Q6HR SC 07/26/24 18:00 07/31/24 06:10 2 UNITS Dextrose 50 ml UD IV 07/26/24 15:45 Epoetin Justus-epbx 10,000 unit MWF@2100 SC 07/28/24 21:00 07/30/24 21:18 10,000 UNIT Midazolam HCl 50 ml @ 1 mls/hr Q24H IV 07/27/24 15:15 07/31/24 19:02 13 MLS/HR Fentanyl Citrate 250 ml @ 2.5 mls/hr Q24H IV 07/27/24 15:15 07/31/24 17:22 15 MLS/HR Amino Acids 0 ml @ 0 mls/hr PER PHARMACY IV 07/28/24 09:30 Pantoprazole Sodium 40 mg BID IV 07/28/24 10:00 07/31/24 22:04 40 MG Vancomycin HCl 0 ml @ 0 mls/hr UD IV 07/28/24 19:15 Cancel Hydrocortisone Sodium Succinate 100 mg Q8HR IV 07/29/24 14:00 07/31/24 22:04 100 MG Fat Emulsion Intravenous 50 ml/ Sodium Chloride 40 meq/Potassium Chloride 20 meq/ Magnesium Sulfate 12 meq/ Multivitamins 10 ml/Amino Acids/ Dextrose 1,083 ml @ 45 mls/hr Q24H4M IV 07/31/24 22:00 08/01/24 21:59 07/31/24 21:58 45 MLS/HR Trimethoprim/ Sulfamethoxazole 15 ml/Dextrose 515 ml @ 343.333 mls/hr DAILY@DINNER IV 07/31/24 22:00 objective Gen.: Patient lying in bed in medical ICU. Sedated, intubated on mechanical ventilator. Head: Normocephalic, atraumatic. Eyes: PERRLA. Ears: Normal external anatomy. Throat: Endotracheal tube and orogastric tube in place. Neck: Supple, trachea midline. Chest: Transmitted breath sounds bilaterally. Decreased air entry bilaterally. No wheezing. Bibasilar crackles. Cardiovascular: Positive S1, positive S2. Regular rate and rhythm. Abdomen: Positive bowel sounds in all 4 quadrants. Soft, nontender, nondistended. : Whiting in place. Normal external genitalia. Rectal: Deferred. Skin: Warm, dry. Intact. Extremities: 2+ radial pulses bilaterally. No lower extremity edema. Neuro: Sedated. laboratory and microbiology Laboratory Tests 07/31/24 03:20 Test 07/31/24 03:20 Range/Units Serum Glucose 133 H 74-106 mg/dL Assessment/Plan Impression: Acute hypoxic respiratory failure On mechanical ventilator Pulmonary edema Necrotizing fasciitis Septic shock Morbid obesity Events: Remains on vent support On AC mode with RR 24, VT 400, PEEP 8, FiO2 30% Sedated on Versed, Fentanyl. Continue bronchodilators Continue antibiotics Continue antifungals On pressors for hemodynamic support On Levophed 2 mcg/min Titrate to keep MAP above 65 mmHg/SBP above 90 mmHg. Improved pressor requirements Monitor hemodynamics S/p bronchoscopy 07/27/24 - cleared secretions from RUL/RLL + ASHLEY/lingula/LLL. GI recs appreciated Monitor hemoglobin TPN for nutritional support Monitor hemoglobin Monitor platelet count Head of bed elevation Aspiration precautions. Monitor WBC Wound care Recommend PT eval. HD per Nephrology - HD today, removed 3 liters. Monitor renal function Monitor electrolytes. Supplement as necessary. Potassium supplementation Nephrology recommendations appreciated Awaiting family decision on goals of care. U/S Doppler of left upper extremity negative for DVT. 07/17/24 - S/p therapeutic bronchoscopy w/ RLL BAL - cleared mucous plugging from L6-L10 and R6-R10 See separate procedure note for details. Labs and imaging reviewed. Rest of plan as noted below. Plan: s/p intubation on 07/27/24 On mechanical ventilator; AC mode with RR 24, VT 400, PEEP 8, FiO2 30% Sedated on Versed, Fentanyl. On pressors for hemodynamic support Titrate to keep MAP above 65 mmHg/SBP above 90 mmHg. Monitor hemodynamics Continue antibiotics. F/u cultures. Monitor renal function Monitor electrolytes. Supplement as necessary. Monitor ins and outs. GI prophylaxis. DVT prophylaxis. Prognosis: Poor given patient's multiple co-morbidities. Condition: Critical Rest of plan per hospitalist and other consultants. A total of 35 minutes of critical care time was spent reviewing the patient record, examining the patient, making a diagnostic and therapeutic plan, discussing this plan with the medical personnel, following up on diagnostic studies and following the patient for clinical stability excluding any and all procedures. At least 50% of this time was spent in direct, [id number] contact. Thank you Dr. Johnson, for allowing me to participate in this patient's care. Further recommendations will depend on the patient's clinical course. Please do not hesitate to contact me if you have any questions or concerns. This medical document was created using an electronic medical record system with [employer] computerized dictation system. Although these documentations are being carefully reviewed, there may still be some phonetic and typographical changes. The errors are purely typographical, due to imperfection on the software program, and do not reflect any compromise in the patient's medical care. Dietary Evaluation Review Comments: 1) If GI is accessible consider Nepro 1.8 @ 20 ml/hr with current rate of propofol on board 2) If pt remains NPO >7days of NPO status, provide TPN to meet at least 75% of estimated needs 3) Advance pt diet when medically feasible to a Renal Standard diet modified per PEDIATRIC GENETICIST recommendations Expected Outcomes/Goals: 1) Pt to receive nutrition support within 7 days of NPO status 2) Pt diet to advance 3) F/U in 2-3 days Plan discussed with: Other (JACEK Suarez) Critical Care Time(min): 35 EB DEJESUS MD Jul 31, 2024 23:36
[2024-08-01] VITALS (109 sets, daily range): BP systolic 85–148; BP diastolic 28–69; PULSE 88–105; RESP 10–36; TEMP 97.5–98.1; O2SAT 96–100
[2024-08-01 03:41] LABS: Hemoglobin 7.5 g/dL (13.5-17.5); Platelet Count (auto) 24 10^3/uL (140-450)
[2024-08-01 03:45] LABS: Hematocrit 22.2 % (41.0-53.0); Mean Corpuscular Hemoglobin 33.5 pg (28.0-32.0); Mean Corpuscular Hgb Conc. 33.9 g/dL (32.0-36.0); Red Blood Cells 2.24 10^6/uL (4.5-5.90); White Blood Cell 5.9 10^3/uL (4.4-10.8)
[2024-08-01 04:00] LABS: Anion Gap 11 (5-15); Calcium 8.7 mg/dL (8.7-10.4); Carbon Dioxide 26 mmol/L (20-31); Chloride 99 mmol/L (98-107); Sodium 136 mmol/L (136-145); Total Protein 5.8 g/dL (5.7-8.2)
[2024-08-01 04:01] LABS: Phosphorus 2.4 mg/dL (2.4-5.1)
[2024-08-01 04:20] LABS: Alanine Aminotransferase 48 U/L (7-40); Albumin 3.1 g/dL (3.2-4.8); Alkaline Phosphatase 121 U/L (46-116); Aspartate Aminotransferase 188 U/L (13-40); Bilirubin, Total 9.6 mg/dL (0.2-1.0); Blood Urea Nitrogen 35 mg/dL (9-23); Glucose 124 mg/dL (74-106); Potassium 3.2 mmol/L (3.5-5.1)
[2024-08-01 04:23] LABS: BUN/Creatinine Ratio 12.7 (10.0-20.0)
[2024-08-01 04:33] LABS: Red Cell Distribution Width 21.1 % (11.8-14.3)
[2024-08-01 04:34] LABS: Basophils % (manual) 0 (0.0-2.0); Blast Cells 0; Promyelocytes % 0; Reactive Lymphocytes 0
[2024-08-01 05:27] LABS: Anisocytosis Moderate; Band Neutrophils % (manual) 35; Eosinophils % (manual) 1 (0-7); Lymphocytes % (manual) 6 (10.0-50.0); Monocytes % (manual) 4 (0-12); Platelet Estimate Markedly Decreased
[2024-08-01 05:28] LABS: Metamyelocytes % 1; Myelocytes % 1
--- NOTE | 2024-08-01 06:19 | DVH ---
EXAM: XY CHEST PORTABLE Indication: pna Technique: Single frontal view of the chest was obtained Comparison: XY CHEST PORTABLE on DOS: 07/31/24, XY CHEST PORTABLE on DOS: 07/28/24, XY CHEST PORTABLE on DOS: 07/27/24, XY CHEST PORTABLE on DOS: 07/27/24, XY CHEST PORTABLE on DOS: 07/27/24 FINDINGS: Lines and Tubes: Interval retraction of endotracheal tube which projects 4.4 cm above level the joyce a. Enteric tube, right internal jugular central venous catheter are unchanged. Lungs: Mild pulmonary vascular congestion. Left basilar opacity. Pleura: No effusion. No pneumothorax. Cardiomediastinal contours: Cardiomegaly. Bones: No acute osseous abnormality. IMPRESSION: Interval retraction of endotracheal tube which projects in appropriate position.
[2024-08-01] MEDS ORDERED: Nepro With Carb Steady 1 Liter Bottle GT SCH (06:45)
[2024-08-01] MEDS: POTASSIUM CHL 20MEQ/100ML 100 ML IV ONE (07:01)
[2024-08-01 07:39] LABS: Base Excess 1.3 mmol/L (-2.0-3.0)
--- NOTE | 2024-08-01 09:16 | DVHPN2 ---
Subjective Intubated sedated Reviewed: Care Plan, H&P, Labs, Medications Changes from previous H/P or p: No Changes General: Per HPI Eyes: No Pain, No Vision change, No Conjunctivae inflammation, No Eyelid inflammation, No Other, No Redness ENT: No Ear pain, No Ear discharge, No Nose pain, No Nose discharge, No Nose congestion, No Mouth pain, No Mouth swelling, No Throat pain, No Throat swelling, No Other Cardiovascular: Chest Pain Respiratory: Cough Gastrointestinal: No Nausea, No Vomiting, No Abdominal Pain, No Diarrhea, No Constipation, No Melena, No Hematochezia, No Other Genitourinary: No Dysuria, No Frequency, No Incontinence, No Hematuria, No Retention, No Other Musculoskeletal: other, leg pain Skin: Other Objective Vitals Vital Signs Date Time Temp Pulse Resp B/P (MAP) Pulse Ox O2 Delivery O2 Flow Rate FiO2 08/01/24 08:30 96 15 116/38 (64) 98 121/62 (81) 08/01/24 08:00 97.7 97.7 08/01/24 08:00 Mechanical Ventilator+ 30 30 Intake/Output Intake and Output 08/01/24 06:59 Intake Total 2111.599 ml Output Total 25 ml Balance 2086.599 ml Intake Oral 0 ml IV Total 2111.599 ml Emesis 25 ml # Bowel Movements 3 General Appearance: Alert, moderate distress, Other HEENT: PERRLA Lungs: Other (Patient on BiPAP) Cardiovascular: Regular rate, Normal S1, Normal S2 Abdomen: Normal bowel sounds, Soft, No tenderness Musculoskeletal: Other (No motor movement) Extremities: Other (Bilateral upper extremity swelling) Neuro: Cranial nerves 3-12 NL, Other (Unable to assess) Skin: Wounds (See nurse notes and pictures), Other (Hives noted to trunk and extremities) Psych/Mental Status: Other (Unable to assess) Medications Current Medications Medications Dose Ordered Sig/Rey Route Start Time Stop Time Status Last Admin Dose Admin Vancomycin HCl 0 ml @ 0 mls/hr UD IV 07/08/24 17:00 Cancel Sodium Chloride 10 ml Q8HR IV 07/09/24 06:00 08/01/24 06:00 10 ML Vasopressin 20 units/Sodium Chloride 100 ml @ 9 mls/hr Q11H7M IV 07/09/24 13:15 07/29/24 20:25 6 MLS/HR Norepinephrine Bitartrate 32 mg/ Sodium Chloride 250 ml @ 0.938 mls/ hr Q24H IV 07/09/24 15:30 07/29/24 20:00 13.125 MLS/HR Phenylephrine HCl 80 mg/Sodium Chloride 250 ml @ 7.5 mls/hr Q24H IV 07/09/24 15:45 07/30/24 09:00 29.063 MLS/HR Epinephrine HCl 250 ml @ 7.5 mls/hr Q24H IV 07/09/24 17:00 07/26/24 11:28 7.5 MLS/HR Albumin Human 50 ml @ 100 mls/hr PRN PRN IV 07/13/24 08:30 Cancel Albumin Human 50 ml @ 50 mls/hr PRN PRN IV 07/13/24 08:20 07/28/24 08:10 50 MLS/HR Albuterol 2.5 mg Q6HR HHN 07/18/24 18:00 08/01/24 06:08 2.5 MG Ipratropium [place] 0.5 mg Q6HR NEB 07/18/24 18:00 08/01/24 06:08 0.5 MG Hydralazine HCl 10 mg Q4HR PRN IV 07/19/24 15:30 Hold 07/22/24 09:41 10 MG Labetalol HCl 10 mg Q2HPRN PRN IV 07/22/24 11:15 Bacitracin 1 applic DAILY TOP 07/24/24 10:00 07/31/24 09:08 1 APPLIC Amphotericin B Liposome 250 mg/ Dextrose 187.5 ml @ 93.75 mls/ hr DAILY@2099 IV 07/24/24 21:00 07/31/24 21:46 93.75 MLS/HR Acetaminophen 650 mg DAILY@2029 PO 07/24/24 20:30 07/31/24 21:07 650 MG Diphenhydramine HCl 25 mg DAILY@2029 IV 07/24/24 20:30 07/31/24 21:06 25 MG Diagnostic Test (Pha) 1 strip Q6HR 07/26/24 18:00 08/01/24 06:00 1 STRIP Insulin Human Regular FOLLOW SLIDING SCALE Q6HR SC 07/26/24 18:00 07/31/24 06:10 2 UNITS Dextrose 50 ml UD IV 07/26/24 15:45 Epoetin Justus-epbx 10,000 unit MWF@2100 SC 07/28/24 21:00 07/30/24 21:18 10,000 UNIT Midazolam HCl 50 ml @ 1 mls/hr Q24H IV 07/27/24 15:15 08/01/24 08:12 14 MLS/HR Fentanyl Citrate 250 ml @ 2.5 mls/hr Q24H IV 07/27/24 15:15 08/01/24 06:50 22.5 MLS/HR Amino Acids 0 ml @ 0 mls/hr PER PHARMACY IV 07/28/24 09:30 Pantoprazole Sodium 40 mg BID IV 07/28/24 10:00 07/31/24 22:04 40 MG Vancomycin HCl 0 ml @ 0 mls/hr UD IV 07/28/24 19:15 Cancel Hydrocortisone Sodium Succinate 100 mg Q8HR IV 07/29/24 14:00 08/01/24 06:43 100 MG Fat Emulsion Intravenous 50 ml/ Sodium Chloride 40 meq/Potassium Chloride 20 meq/ Magnesium Sulfate 12 meq/ Multivitamins 10 ml/Amino Acids/ Dextrose 1,083 ml @ 45 mls/hr Q24H4M IV 07/31/24 22:00 08/01/24 21:59 07/31/24 21:58 45 MLS/HR Trimethoprim/ Sulfamethoxazole 15 ml/Dextrose 515 ml @ 343.333 mls/hr DAILY@DINNER IV 07/31/24 22:00 Enteral Nutritional Formula 1,000 ml 30ML/HR GT 08/01/24 06:45 Laboratory Results Laboratory Tests 08/01/24 03:05 Chemistry Test 08/01/24 03:05 Albumin 3.1 g/dL (3.2-4.8) L Calcium Level 8.7 mg/dL (8.7-10.4) Magnesium Level 2.0 mg/dL (1.6-2.6) Phosphorus Level 2.4 mg/dL (2.4-5.1) Total Protein 5.8 g/dL (5.7-8.2) LFT Test 08/01/24 03:05 Alanine Aminotransferase (ALT) 48 U/L (7-40) H Alkaline Phosphatase 121 U/L (46-116) H Aspartate Amino Transferase (AST) 188 U/L (13-40) H Total Bilirubin 9.6 mg/dL (0.2-1.0) H Blood Gas Results Test 08/01/24 07:17 Arterial Blood pH 7.421 (7.350-7.450) FiO2 % 30.0 Microbiology Microbiology Date/Time Source Procedure Growth Status 07/27/24 16:00 Sputum Gram Stain - Final Resulted 07/27/24 16:00 Respiratory Culture - Preliminary Stenotrophomonas maltophilia Resulted 07/26/24 14:50 Blood Blood Culture - Final NO GROWTH AFTER 5 DAYS OF INCUBATION. Complete 07/09/24 19:55 Trachea Gram Stain - Final Complete 07/09/24 19:55 Trachea Respiratory Culture - Final Complete Labs and/or images reviewed: Labs reviewed by me, Image(s) reviewed by me Assessment/Plan Assessment/Plan Impression: -septic shock -right leg cellulitis,? Necrotizing fasciitis -ESRD with hemodialysis, previous nephrectomy -coronary artery disease with previous CABG -dilated cardiomyopathy -acute on chronic systolic and diastolic heart failure with ejection fraction 25% -morbid obesity -hypocoagulable state -thrombocytopenia -hypoalbuminemia -probable allergic reaction,? Red man syndrome Plan: -events: Sputum culture still growing filamentous fungi. Continue amputation be per ID. Continue Bactrim, vancomycin has been stopped. Vasopressors off. FiO2 40%. -coffee-ground gastric secretions resolved. Attempt to restart tube feeding and taper off TPN. -continue Protonix -nephrology consultation : Managing ESRD, HD -pulmonary consultation: Continue current ventilator settings -infectious disease consultation: Continue antimicrobials per their discretion. -wound care right lower extremity -continue current sedation -PUD, DVT prophylaxis -repeat chest x-ray and labs in a.m. Critical care time spent with patient discussing and formulating plan of care: 90 minutes. This does not include time spent performing procedures. This medical document was created using an electronic medical record system with [employer] dictation system. Although this document has been carefully reviewed, there may still be some phonetic and typographical errors. These areas are purely typographical due to imperfections of the software programs, and do not reflect any compromise in the patient's medical care. Plan discussed with: Patient, Other (RN) My Orders Orders - MAYRA CALL NP Procedure Category Date Status Time Amino Acid PHA 07/31/24 In Process Infusion... W/Fat 22:00 Tpn Per Pharmacy EV 07/31/24 In Process 22:00 Nutritional PHA 08/01/24 In Process Supplements (Nepro 06:45 Diphenhdramine PHA 08/01/24 Verified Injection (Benadryl 09:15 Nutritional PHA 08/01/24 Verified Supplements (Nepro 09:15 Date of Service: Aug 01, 2024 Billing Provider: MAYRA CALL NP Common Visit Codes: [id number] CARE 30-74 MIN MAYRA CALL NP Aug 01, 2024 09:16
[2024-08-01] MEDS: diphenhdrAMINE HCL 50 MG/1 ML VL IV ONE (09:54)
[2024-08-01] MEDS ORDERED: POTASSIUM PHOSPHATE 22 MEQ in SODIUM CHL 0.9% 100 ML IV ONE (13:00)
--- NOTE | 2024-08-01 17:41 | DVHPN2 ---
Progress Note - Dictate Date Seen: Aug 01, 2024 Has the PT tested + for MRSA If YES, has PT been informed?: No Medical Necessity Reason Pt with a Central, PICC or Fol: Yes The following are medically ne: Central Line Subjective Patient was seen and evaluated in follow up in the ICU. Patient is intubated and sedated on ventilator. FiO2 remains 30%. Patient received HD yesterday afternoon. HGB 7.5, HCT 22.2, K 3.2, BUN 35, HARDWARE INSTALLATION COORDINATOR 2.76, AST 188, ALT 48. vital signs Vital Sign Date Time Temp Pulse Resp B/P (MAP) Pulse Ox O2 Delivery O2 Flow Rate FiO2 08/01/24 12:30 97 14 93/42 (59) 99 106/52 (70) 08/01/24 12:00 97.5 97.5 08/01/24 12:00 30 08/01/24 10:00 Mechanical Ventilator+ Total Intake and Output 07/31/24 07/31/24 08/01/24 15:00 23:00 07:00 Intake Total 1075.458 ml 409.828 ml 632.938 ml Output Total 25 ml Balance 1075.458 ml 409.828 ml 607.938 ml medications Current Medications Medications Dose Ordered Sig/Rey Route Start Time Stop Time Status Last Admin Dose Admin Vancomycin HCl 0 ml @ 0 mls/hr UD IV 07/08/24 17:00 Cancel Sodium Chloride 10 ml Q8HR IV 07/09/24 06:00 08/01/24 06:00 10 ML Vasopressin 20 units/Sodium Chloride 100 ml @ 9 mls/hr Q11H7M IV 07/09/24 13:15 07/29/24 20:25 6 MLS/HR Norepinephrine Bitartrate 32 mg/ Sodium Chloride 250 ml @ 0.938 mls/ hr Q24H IV 07/09/24 15:30 07/29/24 20:00 13.125 MLS/HR Phenylephrine HCl 80 mg/Sodium Chloride 250 ml @ 7.5 mls/hr Q24H IV 07/09/24 15:45 07/30/24 09:00 29.063 MLS/HR Epinephrine HCl 250 ml @ 7.5 mls/hr Q24H IV 07/09/24 17:00 07/26/24 11:28 7.5 MLS/HR Albumin Human 50 ml @ 100 mls/hr PRN PRN IV 07/13/24 08:30 Cancel Albumin Human 50 ml @ 50 mls/hr PRN PRN IV 07/13/24 08:20 07/28/24 08:10 50 MLS/HR Albuterol 2.5 mg Q6HR HHN 07/18/24 18:00 08/01/24 12:17 2.5 MG Ipratropium [place] 0.5 mg Q6HR NEB 07/18/24 18:00 08/01/24 12:17 0.5 MG Hydralazine HCl 10 mg Q4HR PRN IV 07/19/24 15:30 Hold 07/22/24 09:41 10 MG Labetalol HCl 10 mg Q2HPRN PRN IV 07/22/24 11:15 Bacitracin 1 applic DAILY TOP 07/24/24 10:00 08/01/24 09:58 1 APPLIC Amphotericin B Liposome 250 mg/ Dextrose 187.5 ml @ 93.75 mls/ hr DAILY@2100 IV 07/24/24 21:00 07/31/24 21:46 93.75 MLS/HR Acetaminophen 650 mg DAILY@2029 PO 07/24/24 20:30 07/31/24 21:07 650 MG Diphenhydramine HCl 25 mg DAILY@2029 IV 07/24/24 20:30 07/31/24 21:06 25 MG Diagnostic Test (Pha) 1 strip Q6HR 07/26/24 18:00 08/01/24 11:52 1 STRIP Insulin Human Regular FOLLOW SLIDING SCALE Q6HR SC 07/26/24 18:00 07/31/24 06:10 2 UNITS Dextrose 50 ml UD IV 07/26/24 15:45 Epoetin Justus-epbx 10,000 unit MWF@2100 SC 07/28/24 21:00 07/30/24 21:18 10,000 UNIT Midazolam HCl 50 ml @ 1 mls/hr Q24H IV 07/27/24 15:15 08/01/24 11:53 14 MLS/HR Fentanyl Citrate 250 ml @ 2.5 mls/hr Q24H IV 07/27/24 15:15 08/01/24 06:50 22.5 MLS/HR Amino Acids 0 ml @ 0 mls/hr PER PHARMACY IV 07/28/24 09:30 Pantoprazole Sodium 40 mg BID IV 07/28/24 10:00 08/01/24 09:55 40 MG Vancomycin HCl 0 ml @ 0 mls/hr UD IV 07/28/24 19:15 Cancel Hydrocortisone Sodium Succinate 100 mg Q8HR IV 07/29/24 14:00 08/01/24 06:43 100 MG Fat Emulsion Intravenous 50 ml/ Sodium Chloride 40 meq/Potassium Chloride 20 meq/ Magnesium Sulfate 12 meq/ Multivitamins 10 ml/Amino Acids/ Dextrose 1,083 ml @ 45 mls/hr Q24H4M IV 07/31/24 22:00 08/01/24 21:59 07/31/24 21:58 45 MLS/HR Trimethoprim/ Sulfamethoxazole 15 ml/Dextrose 515 ml @ 343.333 mls/hr DAILY@DINNER IV 07/31/24 22:00 Enteral Nutritional Formula 1,000 ml 30ML/HR GT 08/01/24 06:45 Cancel Enteral Nutritional Formula 1,000 ml 30ML/HR GT 08/01/24 09:15 Fat Emulsion Intravenous 50 ml/ Sodium Chloride 40 meq/Potassium Chloride 40 meq/ Magnesium Sulfate 12 meq/ Multivitamins 10 ml/Amino Acids/ Dextrose 1,093 ml @ 46 mls/hr [id number] IV 08/01/24 22:00 08/02/24 21:59 objective GENERAL: Intubated on ventilator. Morbidly obese. LUNGS: Decreased breath sounds. CARDIOVASCULAR: Heart sounds are good. ABDOMEN: Soft. EXT: BLE edema. laboratory and microbiology Laboratory Tests 08/01/24 03:05 Test 08/01/24 03:05 Range/Units Serum Glucose 124 H 74-106 mg/dL Problem List Hypotension secondary to septic shock. Coronary artery disease status post CABG in 2021. History of hypertension. Hyperlipidemia. Hyperkalemia. Acute anemia. Thrombocytopenia. Transaminitis. End-stage renal disease on hemodialysis. Renal cell carcinoma status post left nephrectomy. COPD. Asthma. Morbid obesity. Dilated cardiomyopathy. Metabolic encephalopathy. Assessment/Plan Continued all current supportive medical care. GI prophylactics. IV antibiotics as ordered. Vasopressors for hemodynamic support. Additional plan as per the hospital course. Critical care time of 45 minutes provided to include time spent evaluation of patient at bedside, when appropriate patient/family education for diagnosis, treatment plan, review of pertinent medical information and discussion of care with specialty providers and PCP. Mechanical ventilator parameters, treatment and adjustments have personally been reviewed by me and treatment plan by army officer has also been reviewed. Dietary Evaluation Review Comments: 1) If GI is accessible consider Nepro 1.8 @ 20 ml/hr with current rate of propofol on board 2) If pt remains NPO >7days of NPO status, provide TPN to meet at least 75% of estimated needs 3) Advance pt diet when medically feasible to a Renal Standard diet modified per [employer] recommendations Expected Outcomes/Goals: 1) Pt to receive nutrition support within 7 days of NPO status 2) Pt diet to advance 3) F/U in 2-3 days Plan discussed with: Other FRIDA SIMMNOS MD Aug 01, 2024 13:54
--- NOTE | 2024-08-01 18:43 | DVHPN2 ---
Progress Note Date Seen: Aug 01, 2024 Has the PT tested + for MRSA If YES, has PT been informed?: No Medical Necessity Reason Pt with a Central, PICC or Fol: Yes The following are medically ne: Central Line Subjective Patient reports: Other Review of Systems: RESPIRATORY:Abnormal Objective vital signs Vital Sign Date Time Temp Pulse Resp B/P (MAP) Pulse Ox O2 Delivery O2 Flow Rate FiO2 08/01/24 18:30 98 18 114/42 (66) 97 112/54 (73) 08/01/24 18:21 30 08/01/24 16:00 97.5 97.5 08/01/24 10:00 Mechanical Ventilator+ Total Intake and Output 07/31/24 07/31/24 08/01/24 15:00 23:00 07:00 Intake Total 1075.458 ml 409.828 ml 632.938 ml Output Total 25 ml Balance 1075.458 ml 409.828 ml 607.938 ml medications Current Medications Medications Dose Ordered Sig/Rey Route Start Time Stop Time Status Last Admin Dose Admin Vancomycin HCl 0 ml @ 0 mls/hr UD IV 07/08/24 17:00 Cancel Sodium Chloride 10 ml Q8HR IV 07/09/24 06:00 08/01/24 14:58 10 ML Vasopressin 20 units/Sodium Chloride 100 ml @ 9 mls/hr Q11H7M IV 07/09/24 13:15 07/29/24 20:25 6 MLS/HR Norepinephrine Bitartrate 32 mg/ Sodium Chloride 250 ml @ 0.938 mls/ hr Q24H IV 07/09/24 15:30 07/29/24 20:00 13.125 MLS/HR Phenylephrine HCl 80 mg/Sodium Chloride 250 ml @ 7.5 mls/hr Q24H IV 07/09/24 15:45 07/30/24 09:00 29.063 MLS/HR Epinephrine HCl 250 ml @ 7.5 mls/hr Q24H IV 07/09/24 17:00 07/26/24 11:28 7.5 MLS/HR Albumin Human 50 ml @ 100 mls/hr PRN PRN IV 07/13/24 08:30 Cancel Albumin Human 50 ml @ 50 mls/hr PRN PRN IV 07/13/24 08:20 07/28/24 08:10 50 MLS/HR Albuterol 2.5 mg Q6HR HHN 07/18/24 18:00 08/01/24 18:21 2.5 MG Ipratropium [place] 0.5 mg Q6HR NEB 07/18/24 18:00 08/01/24 18:21 0.5 MG Hydralazine HCl 10 mg Q4HR PRN IV 07/19/24 15:30 Hold 07/22/24 09:41 10 MG Labetalol HCl 10 mg Q2HPRN PRN IV 07/22/24 11:15 Bacitracin 1 applic DAILY TOP 07/24/24 10:00 08/01/24 09:58 1 APPLIC Amphotericin B Liposome 250 mg/ Dextrose 187.5 ml @ 93.75 mls/ hr DAILY@2100 IV 07/24/24 21:00 07/31/24 21:46 93.75 MLS/HR Acetaminophen 650 mg DAILY@2029 PO 07/24/24 20:30 07/31/24 21:07 650 MG Diphenhydramine HCl 25 mg DAILY@2029 IV 07/24/24 20:30 07/31/24 21:06 25 MG Diagnostic Test (Pha) 1 strip Q6HR 07/26/24 18:00 08/01/24 18:00 1 STRIP Insulin Human Regular FOLLOW SLIDING SCALE Q6HR SC 07/26/24 18:00 07/31/24 06:10 2 UNITS Dextrose 50 ml UD IV 07/26/24 15:45 Epoetin Justus-epbx 10,000 unit MWF@2100 SC 07/28/24 21:00 07/30/24 21:18 10,000 UNIT Midazolam HCl 50 ml @ 1 mls/hr Q24H IV 07/27/24 15:15 08/01/24 15:42 14 MLS/HR Fentanyl Citrate 250 ml @ 2.5 mls/hr Q24H IV 07/27/24 15:15 08/01/24 17:01 22.5 MLS/HR Amino Acids 0 ml @ 0 mls/hr PER PHARMACY IV 07/28/24 09:30 Pantoprazole Sodium 40 mg BID IV 07/28/24 10:00 08/01/24 09:55 40 MG Vancomycin HCl 0 ml @ 0 mls/hr UD IV 07/28/24 19:15 Cancel Hydrocortisone Sodium Succinate 100 mg Q8HR IV 07/29/24 14:00 08/01/24 14:58 100 MG Fat Emulsion Intravenous 50 ml/ Sodium Chloride 40 meq/Potassium Chloride 20 meq/ Magnesium Sulfate 12 meq/ Multivitamins 10 ml/Amino Acids/ Dextrose 1,083 ml @ 45 mls/hr Q24H4M IV 07/31/24 22:00 08/01/24 21:59 07/31/24 21:58 45 MLS/HR Enteral Nutritional Formula 1,000 ml 30ML/HR GT 08/01/24 06:45 Cancel Enteral Nutritional Formula 1,000 ml 30ML/HR GT 08/01/24 09:15 Fat Emulsion Intravenous 50 ml/ Sodium Chloride 40 meq/Potassium Chloride 40 meq/ Magnesium Sulfate 12 meq/ Multivitamins 10 ml/Amino Acids/ Dextrose 1,093 ml @ 46 mls/hr [id number] IV 08/01/24 22:00 08/02/24 21:59 Trimethoprim/ Sulfamethoxazole 15 ml/Dextrose 265 ml @ 176.667 mls/hr DAILY@2200 IV 08/01/24 22:00 Examination: GENERAL:Abnormal, LUNGS:Abnormal, ABDOMEN:Abnormal, SKIN:Abnormal laboratory and microbiology Laboratory Tests 08/01/24 03:05 Test 08/01/24 03:05 Range/Units Serum Glucose 124 H 74-106 mg/dL Microbiology Date/Time Source Procedure Growth Status 07/27/24 16:00 Sputum Gram Stain - Final Resulted 07/27/24 16:00 Respiratory Culture - Preliminary Stenotrophomonas maltophilia Resulted 07/26/24 14:50 Blood Blood Culture - Final NO GROWTH AFTER 5 DAYS OF INCUBATION. Complete 07/09/24 19:55 Trachea Gram Stain - Final Complete 07/09/24 19:55 Trachea Respiratory Culture - Final Complete Problem List/Assessment/Plan Problem List/Assessment/Plan ESRD on HD acute respiratory failure-> reintubated uremic acidosis / lactic acidosis septic shock with gram-negative anabella bacteremia fungal infection lower extremity wound anemia hypoglycemia hyperkalemia thrombocytopenia severe fluid overload HD tomorrow remains hypotensive on multiple pressors pressors to keep MAP > 65 fluid removal as tolerated Ecoli bacteremia on merrem ABX clinically unstable, prognosis is poor Plan discussed with: Other Dietary Evaluation Review Comments: 1) If GI is accessible consider Nepro 1.8 @ 20 ml/hr with current rate of propofol on board 2) If pt remains NPO >7days of NPO status, provide TPN to meet at least 75% of estimated needs 3) Advance pt diet when medically feasible to a Renal Standard diet modified per [employer] recommendations Expected Outcomes/Goals: 1) Pt to receive nutrition support within 7 days of NPO status 2) Pt diet to advance 3) F/U in 2-3 days LULU RICHARD MD Aug 01, 2024 18:43
[2024-08-01] MEDS: SULFAMETH-TRIMETH 80/16MG-ML 15 ML in D5W 5% 250 ML IV SCH (21:57)
[2024-08-01] MEDS: TPN PER PHARMACY IV NR (22:00)
--- NOTE | 2024-08-01 22:45 | DVHPN2 ---
Consult Progress Note Date Seen: Aug 01, 2024 Subjective Patient reports: Other (is on minimal vent for sedation , appears comfortable and non agitated . his right posterior calf has a necrotic open blister with no drainage or odor . skin peeling across the thigh ) Objective vital signs Vital Sign Date Time Temp Pulse Resp B/P (MAP) Pulse Ox O2 Delivery O2 Flow Rate FiO2 08/01/24 22:05 91 27 108/54 (72) 99 30 08/01/24 20:56 98.1 08/01/24 10:00 Mechanical Ventilator+ Total Intake and Output 07/31/24 07/31/24 08/01/24 15:00 23:00 07:00 Intake Total 1075.458 ml 409.828 ml 632.938 ml Output Total 25 ml Balance 1075.458 ml 409.828 ml 607.938 ml medications Current Medications Medications Dose Ordered Sig/Rey Route Start Time Stop Time Status Last Admin Dose Admin Vancomycin HCl 0 ml @ 0 mls/hr UD IV 07/08/24 17:00 Cancel Sodium Chloride 10 ml Q8HR IV 07/09/24 06:00 08/01/24 21:53 10 ML Vasopressin 20 units/Sodium Chloride 100 ml @ 9 mls/hr Q11H7M IV 07/09/24 13:15 07/29/24 20:25 6 MLS/HR Norepinephrine Bitartrate 32 mg/ Sodium Chloride 250 ml @ 0.938 mls/ hr Q24H IV 07/09/24 15:30 07/29/24 20:00 13.125 MLS/HR Phenylephrine HCl 80 mg/Sodium Chloride 250 ml @ 7.5 mls/hr Q24H IV 07/09/24 15:45 07/30/24 09:00 29.063 MLS/HR Epinephrine HCl 250 ml @ 7.5 mls/hr Q24H IV 07/09/24 17:00 07/26/24 11:28 7.5 MLS/HR Albumin Human 50 ml @ 100 mls/hr PRN PRN IV 07/13/24 08:30 Cancel Albumin Human 50 ml @ 50 mls/hr PRN PRN IV 07/13/24 08:20 07/28/24 08:10 50 MLS/HR Albuterol 2.5 mg Q6HR HHN 07/18/24 18:00 08/01/24 18:21 2.5 MG Ipratropium [place] 0.5 mg Q6HR NEB 07/18/24 18:00 08/01/24 18:21 0.5 MG Hydralazine HCl 10 mg Q4HR PRN IV 07/19/24 15:30 Hold 07/22/24 09:41 10 MG Labetalol HCl 10 mg Q2HPRN PRN IV 07/22/24 11:15 Bacitracin 1 applic DAILY TOP 07/24/24 10:00 08/01/24 09:58 1 APPLIC Amphotericin B Liposome 250 mg/ Dextrose 187.5 ml @ 93.75 mls/ hr DAILY@2100 IV 07/24/24 21:00 08/01/24 21:48 93.75 MLS/HR Acetaminophen 650 mg DAILY@2029 PO 07/24/24 20:30 08/01/24 20:56 650 MG Diphenhydramine HCl 25 mg DAILY@2029 IV 07/24/24 20:30 08/01/24 20:55 25 MG Diagnostic Test (Pha) 1 strip Q6HR 07/26/24 18:00 08/01/24 18:00 1 STRIP Insulin Human Regular FOLLOW SLIDING SCALE Q6HR SC 07/26/24 18:00 07/31/24 06:10 2 UNITS Dextrose 50 ml UD IV 07/26/24 15:45 Epoetin Justus-epbx 10,000 unit MWF@2100 SC 07/28/24 21:00 07/30/24 21:18 10,000 UNIT Midazolam HCl 50 ml @ 1 mls/hr Q24H IV 07/27/24 15:15 08/01/24 19:17 14 MLS/HR Fentanyl Citrate 250 ml @ 2.5 mls/hr Q24H IV 07/27/24 15:15 08/01/24 17:01 22.5 MLS/HR Amino Acids 0 ml @ 0 mls/hr PER PHARMACY IV 07/28/24 09:30 Pantoprazole Sodium 40 mg BID IV 07/28/24 10:00 08/01/24 21:50 40 MG Vancomycin HCl 0 ml @ 0 mls/hr UD IV 07/28/24 19:15 Cancel Hydrocortisone Sodium Succinate 100 mg Q8HR IV 07/29/24 14:00 08/01/24 21:50 100 MG Enteral Nutritional Formula 1,000 ml 30ML/HR GT 08/01/24 06:45 Cancel Enteral Nutritional Formula 1,000 ml 30ML/HR GT 08/01/24 09:15 Fat Emulsion Intravenous 50 ml/ Sodium Chloride 40 meq/Potassium Chloride 40 meq/ Magnesium Sulfate 12 meq/ Multivitamins 10 ml/Amino Acids/ Dextrose 1,093 ml @ 46 mls/hr [id number] IV 08/01/24 22:00 08/02/24 21:59 Trimethoprim/ Sulfamethoxazole 15 ml/Dextrose 265 ml @ 176.667 mls/hr DAILY@2200 IV 08/01/24 22:00 08/01/24 21:57 176.667 MLS/HR PHYSICAL EXAM: - GENERAL: Alert and oriented x 3. No acute distress. Well-nourished. - EYES: EOMI. Anicteric. - HENT: Moist mucous membranes. No scleral icterus. No cervical lymphadenopathy. - LUNGS: Clear to auscultation bilaterally. No accessory muscle use. - CARDIOVASCULAR: Regular rate and rhythm. No murmur. No JVD. - ABDOMEN: Soft, non-tender and non-distended. No palpable masses. - EXTREMITIES: No edema. Non-tender.?SKIN: No rashes or lesions. Warm. - NEUROLOGIC: No focal neurological deficits. CN II-XII grossly intact, but not individually tested - PSYCHIATRIC: Cooperative. Appropriate mood and affect laboratory and microbiology Laboratory Tests 08/01/24 03:05 Test 08/01/24 03:05 Range/Units Serum Glucose 124 H 74-106 mg/dL Problem List/Assessment/Plan Problems(with codes): (1) E coli bacteremia (2) Coffee ground emesis (3) Necrotizing fasciitis of lower leg (4) Elevated liver enzymes (5) End-stage renal disease on hemodialysis (6) Acute kidney failure, unspecified (7) Chronic kidney disease, unspecified Problem List/Assessment/Plan ID Problem List: - Septic shock - Necrotizing fasciitis of right lower extremity - End-stage renal disease on hemodialysis - Kidney cancer status post nephrectomy - Coronary artery disease - Hyperlipidemia - Status post CABG - ESBL Bacteria - Pneumonia Assessment This is a 58 y.o. male with a past medical history of kidney cancer status post nephrectomy, end-stage renal disease on hemodialysis, coronary artery disease, hyperlipidemia, and status post CABG, who presents with chest pain, fever, and right thigh tenderness concerning for necrotizing fasciitis. On admission, the patient had a temperature of 104F, hypotension (BP 78/45 mmHg), lactic acid 3.8 mmol/L, elevated AST (3044 U/L) and ALT (560 U/L), WBC count 37,000/mm, hemoglobin 7.5 g/dL, and platelets 62,000/mm. Physical examination notable for right thigh tenderness and generalized weakness. Initial imaging included CT scan of the right thigh showing subcutaneous edema with no gas in soft tissues and small bilateral knee effusions. Chest CT revealed bronchiovascular crowding; underlying pulmonary vascular condition cannot be excluded. Blood cultures are preliminarily positive for gram-negative rods. Respiratory cultures show gram-positive issa. An anaerobic bottle was positive for gram- negative rods. Laboratory studies reveal persistent elevation of liver enzymes with AST 3009 U/L and ALT 1976 U/L. Lactic acid increased to 15 mmol/L, platelets decreased to 32,000/mm. Peripheral smear shows Elizabeth cells. Potassium is elevated at 6 mEq/L. The patient is intubated and sedated for acute hypoxic respiratory failure and altered mental status. 07/10: Undergoing ultra filtration and whitecount is elevated. Pressures are starting to come down since initiating meropenem and platelets are still low at 57 07/11: has an elevated whitecount of 19.1 , LFTs and renal function continue to worsen. blood cultures show ESBL E Coli . chest xray shows a left small bascular airspace disease . Fibrinogen is 433 appears to be adequate and patient is not having any additional signs of bleed . hemoglobin is stable at 8.4 and can hold off on additional transfusions outside of keeping hemoglobin above 7 and platelets above 50 07/12: whitecount is 28.43 , liver enzymes remain elevated at 2955 ALT and 2723 AST , as [place] [address] 07/24: extubated 2 days ago tolerated cpap on trickle feeds remains somewhat altered leukocytosis rising, restarted on pressors for last 2 days sacral ulcer present, thigh cellulitis resolved, respiratory culture w/ filamentus fungi 06/25: high fevers 06/26: thick mendoza secretions patient reintubated 07/28: white count is 13.6 , repeat blood cultures show young colonies 07/29: white count is 11.2 , respiratory cultures from bronchoscopy shows gram negative rods 07/30: white count is normalized , respiratory culture shows Stenotrophomonas 07/31: appears to be clinically improving , growing Stenotrophomonas on respiratory cultures thaat are sensitive to Bactrim , tolerating dialysis 08/01: patient appears to be clinically responding to antibiotic therapy with no signs of intolerance to Bactrim Plan: - Continue Bactrim 3 milligrams per kilogram 1x a day after given dialysis - follow up on sensitivity of fungi on sputum culture and adjust antifungal treatment based on results - monitor LFTs daily - keep MAP goal to 65 for patient to maintain blood pressure support - check blood culture to confirm clearance of bacteremia - continue amphotericin B - continue vancomycin empirically in setting of septic shock - Surgical Consultation: Agree with general surgeon that clinical picture favors hematoma vs cellulitis , no signs of necrotizing infection at this time - Supportive Care: Continue vasopressor support with norepinephrine (Levophed) and epinephrine as needed for septic shock. - Laboratory Monitoring: Recheck laboratory values including CBC, CMP, lactic acid, and coagulation profile. Monitor liver function tests. - Renal Management: Coordinate with nephrology for hemodialysis management. - Isolation Precautions: Standard precautions. Authorized and Performed by: sangeetha melendrez Total critical care time: Approximately 72 minutes Due to a high probability of clinically significant, life threatening deterioration, the patient required my highest level of preparedness to intervene emergently and I personally spent this critical care time directly and personally managing the patient. This critical care time included obtaining a history; examining the patient; pulse oximetry; ordering and review of studies; arranging urgent treatment with development of a management plan; evaluation of patient's response to treatment; frequent reassessment; and, discussions with other providers. This critical care time was performed to assess and manage the high probability of imminent, life-threatening deterioration that could result in multi-organ failure. It was exclusive of separately billable procedures and treating other patients and teaching time. Plan discussed with: Other Dietary Evaluation Review Comments: 1) If GI is accessible consider Nepro 1.8 @ 20 ml/hr with current rate of propofol on board 2) If pt remains NPO >7days of NPO status, provide TPN to meet at least 75% of estimated needs 3) Advance pt diet when medically feasible to a Renal Standard diet modified per [employer] recommendations Expected Outcomes/Goals: 1) Pt to receive nutrition support within 7 days of NPO status 2) Pt diet to advance 3) F/U in 2-3 days SANGEETHA MELENDREZ MD Aug 01, 2024 22:45
--- NOTE | 2024-08-01 22:53 | DVHPN2 ---
Progress Note - Dictate Date Seen: Aug 01, 2024 Has the PT tested + for MRSA If YES, has PT been informed?: No Medical Necessity Reason Pt with a Central, PICC or Fol: Yes The following are medically ne: Central Line Subjective Patient seen and examined at bedside. Sedated, intubated on mechanical ventilator. Overnight events reviewed. vital signs Vital Sign Date Time Temp Pulse Resp B/P (MAP) Pulse Ox O2 Delivery O2 Flow Rate FiO2 08/01/24 22:50 109/39 08/01/24 22:05 91 27 99 30 08/01/24 20:56 98.1 08/01/24 10:00 Mechanical Ventilator+ Total Intake and Output 07/31/24 07/31/24 08/01/24 15:00 23:00 07:00 Intake Total 1075.458 ml 409.828 ml 632.938 ml Output Total 25 ml Balance 1075.458 ml 409.828 ml 607.938 ml medications Current Medications Medications Dose Ordered Sig/Rey Route Start Time Stop Time Status Last Admin Dose Admin Vancomycin HCl 0 ml @ 0 mls/hr UD IV 07/08/24 17:00 Cancel Sodium Chloride 10 ml Q8HR IV 07/09/24 06:00 08/01/24 21:53 10 ML Vasopressin 20 units/Sodium Chloride 100 ml @ 9 mls/hr Q11H7M IV 07/09/24 13:15 07/29/24 20:25 6 MLS/HR Norepinephrine Bitartrate 32 mg/ Sodium Chloride 250 ml @ 0.938 mls/ hr Q24H IV 07/09/24 15:30 07/29/24 20:00 13.125 MLS/HR Phenylephrine HCl 80 mg/Sodium Chloride 250 ml @ 7.5 mls/hr Q24H IV 07/09/24 15:45 07/30/24 09:00 29.063 MLS/HR Epinephrine HCl 250 ml @ 7.5 mls/hr Q24H IV 07/09/24 17:00 07/26/24 11:28 7.5 MLS/HR Albumin Human 50 ml @ 100 mls/hr PRN PRN IV 07/13/24 08:30 Cancel Albumin Human 50 ml @ 50 mls/hr PRN PRN IV 07/13/24 08:20 07/28/24 08:10 50 MLS/HR Albuterol 2.5 mg Q6HR HHN 07/18/24 18:00 08/01/24 18:21 2.5 MG Ipratropium [place] 0.5 mg Q6HR NEB 07/18/24 18:00 08/01/24 18:21 0.5 MG Hydralazine HCl 10 mg Q4HR PRN IV 07/19/24 15:30 Hold 07/22/24 09:41 10 MG Labetalol HCl 10 mg Q2HPRN PRN IV 07/22/24 11:15 Bacitracin 1 applic DAILY TOP 07/24/24 10:00 08/01/24 09:58 1 APPLIC Amphotericin B Liposome 250 mg/ Dextrose 187.5 ml @ 93.75 mls/ hr DAILY@2100 IV 07/24/24 21:00 08/01/24 21:48 93.75 MLS/HR Acetaminophen 650 mg DAILY@2029 PO 07/24/24 20:30 08/01/24 20:56 650 MG Diphenhydramine HCl 25 mg DAILY@2029 IV 07/24/24 20:30 08/01/24 20:55 25 MG Diagnostic Test (Pha) 1 strip Q6HR 07/26/24 18:00 08/01/24 18:00 1 STRIP Insulin Human Regular FOLLOW SLIDING SCALE Q6HR SC 07/26/24 18:00 07/31/24 06:10 2 UNITS Dextrose 50 ml UD IV 07/26/24 15:45 Epoetin Justus-epbx 10,000 unit MWF@2100 SC 07/28/24 21:00 07/30/24 21:18 10,000 UNIT Midazolam HCl 50 ml @ 1 mls/hr Q24H IV 07/27/24 15:15 08/01/24 22:50 14 MLS/HR Fentanyl Citrate 250 ml @ 2.5 mls/hr Q24H IV 07/27/24 15:15 08/01/24 17:01 22.5 MLS/HR Amino Acids 0 ml @ 0 mls/hr PER PHARMACY IV 07/28/24 09:30 Pantoprazole Sodium 40 mg BID IV 07/28/24 10:00 08/01/24 21:50 40 MG Vancomycin HCl 0 ml @ 0 mls/hr UD IV 07/28/24 19:15 Cancel Hydrocortisone Sodium Succinate 100 mg Q8HR IV 07/29/24 14:00 08/01/24 21:50 100 MG Enteral Nutritional Formula 1,000 ml 30ML/HR GT 08/01/24 06:45 Cancel Enteral Nutritional Formula 1,000 ml 30ML/HR GT 08/01/24 09:15 Fat Emulsion Intravenous 50 ml/ Sodium Chloride 40 meq/Potassium Chloride 40 meq/ Magnesium Sulfate 12 meq/ Multivitamins 10 ml/Amino Acids/ Dextrose 1,093 ml @ 46 mls/hr [id number] IV 08/01/24 22:00 08/02/24 21:59 Trimethoprim/ Sulfamethoxazole 15 ml/Dextrose 265 ml @ 176.667 mls/hr DAILY@2200 IV 08/01/24 22:00 08/01/24 21:57 176.667 MLS/HR objective Gen.: Patient lying in bed in medical ICU. Sedated, intubated on mechanical ventilator. Head: Normocephalic, atraumatic. Eyes: PERRLA. Ears: Normal external anatomy. Throat: Endotracheal tube and orogastric tube in place. Neck: Supple, trachea midline. Chest: Transmitted breath sounds bilaterally. Decreased air entry bilaterally. No wheezing. Bibasilar crackles. Cardiovascular: Positive S1, positive S2. Regular rate and rhythm. Abdomen: Positive bowel sounds in all 4 quadrants. Soft, nontender, nondistended. : Whiting in place. Normal external genitalia. Rectal: Deferred. Skin: Warm, dry. Intact. Extremities: 2+ radial pulses bilaterally. No lower extremity edema. Neuro: Sedated. laboratory and microbiology Laboratory Tests 08/01/24 03:05 Test 08/01/24 03:05 Range/Units Serum Glucose 124 H 74-106 mg/dL Assessment/Plan Impression: Acute hypoxic respiratory failure On mechanical ventilator Pulmonary edema Necrotizing fasciitis Septic shock Morbid obesity Events: Remains on vent support On AC mode with RR 24, VT 400, PEEP 8, FiO2 30% Sedated on Versed, Fentanyl. Continue bronchodilators PRN IV steroids Off pressors, hemodynamically stable. Monitor hemodynamics GI recs appreciated Monitor hemoglobin Starting tube feeds for nutritional support TPN Monitor hemoglobin Monitor platelet count Head of bed elevation Aspiration precautions. Monitor WBC Wound care Recommend PT eval. HD per Nephrology - HD yesterday removed 3 liters. Monitor renal function Monitor electrolytes. Supplement as necessary. Nephrology recommendations appreciated We will discuss goals of care with family. U/S Doppler of left upper extremity negative for DVT. 07/17/24 - S/p therapeutic bronchoscopy w/ RLL BAL - cleared mucous plugging from L6-L10 and R6-R10 See separate procedure note for details. Labs and imaging reviewed. Rest of plan as noted below. Plan: s/p intubation on 07/27/24 On mechanical ventilator; AC mode with RR 24, VT 400, PEEP 8, FiO2 30% Sedated on Versed, Fentanyl. On pressors for hemodynamic support Titrate to keep MAP above 65 mmHg/SBP above 90 mmHg. Monitor hemodynamics IV steroids Antibiotics - completed. F/u cultures. Monitor renal function Monitor electrolytes. Supplement as necessary. Monitor ins and outs. GI prophylaxis. DVT prophylaxis. Prognosis: Poor given patient's multiple co-morbidities. Condition: Critical Rest of plan per hospitalist and other consultants. A total of 35 minutes of critical care time was spent reviewing the patient record, examining the patient, making a diagnostic and therapeutic plan, discussing this plan with the medical personnel, following up on diagnostic studies and following the patient for clinical stability excluding any and all procedures. At least 50% of this time was spent in direct, [id number] contact. Thank you Dr. Johnson, for allowing me to participate in this patient's care. Further recommendations will depend on the patient's clinical course. Please do not hesitate to contact me if you have any questions or concerns. This medical document was created using an electronic medical record system with [employer] dictation system. Although these documentations are being carefully reviewed, there may still be some phonetic and typographical changes. The errors are purely typographical, due to imperfection on the software program, and do not reflect any compromise in the patient's medical care. Dietary Evaluation Review Comments: 1) If GI is accessible consider Nepro 1.8 @ 20 ml/hr with current rate of propofol on board 2) If pt remains NPO >7days of NPO status, provide TPN to meet at least 75% of estimated needs 3) Advance pt diet when medically feasible to a Renal Standard diet modified per STORAGE SPECIALIST recommendations Expected Outcomes/Goals: 1) Pt to receive nutrition support within 7 days of NPO status 2) Pt diet to advance 3) F/U in 2-3 days Plan discussed with: Other (JACEK Suarez) Critical Care Time(min): 35 EB DEJESUS MD Aug 01, 2024 22:53
[2024-08-02] VITALS (99 sets, daily range): BP systolic 91–146; BP diastolic 27–97; PULSE 85–107; RESP 10–29; TEMP 97–97.9; O2SAT 95–100
[2024-08-02 04:07] LABS: Hemoglobin 7.7 g/dL (13.5-17.5); White Blood Cell 8.7 10^3/uL (4.4-10.8)
[2024-08-02 04:10] LABS: Hematocrit 23.1 % (41.0-53.0); Mean Corpuscular Hemoglobin 33.2 pg (28.0-32.0); Mean Corpuscular Hgb Conc. 33.5 g/dL (32.0-36.0); Mean Corpuscular Volume 99.1 fL (80.0-100.0); Platelet Count (auto) 32 10^3/uL (140-450); Red Blood Cells 2.33 10^6/uL (4.5-5.90)
[2024-08-02 04:25] LABS: Red Cell Distribution Width 21.8 % (11.8-14.3)
[2024-08-02 04:26] LABS: Basophils % (manual) 0 (0.0-2.0); Blast Cells 0; Eosinophils % (manual) 0 (0-7); Metamyelocytes % 0; Promyelocytes % 0; Reactive Lymphocytes 0
[2024-08-02 04:28] LABS: Anion Gap 13 (5-15); Carbon Dioxide 23 mmol/L (20-31); Chloride 99 mmol/L (98-107); Glucose 80 mg/dL (74-106); Magnesium 2.2 mg/dL (1.6-2.6); Phosphorus 3.2 mg/dL (2.4-5.1); Potassium 3.9 mmol/L (3.5-5.1)
[2024-08-02 04:37] LABS: BUN/Creatinine Ratio 14.2 (10.0-20.0)
[2024-08-02 04:41] LABS: Alanine Aminotransferase 75 U/L (7-40); Albumin 2.9 g/dL (3.2-4.8); Alkaline Phosphatase 208 U/L (46-116); Aspartate Aminotransferase 250 U/L (13-40); Bilirubin, Total 9.7 mg/dL (0.2-1.0); Blood Urea Nitrogen 49 mg/dL (9-23); Calcium 8.3 mg/dL (8.7-10.4); Sodium 135 mmol/L (136-145); Total Protein 5.7 g/dL (5.7-8.2)
--- NOTE | 2024-08-02 05:16 | DVH ---
CHEST RADIOGRAPH Indication: pna Technique: Single frontal view of the chest was obtained Comparison: XY CHEST PORTABLE on DOS: 08/01/24 FINDINGS: Lines and Tubes: The endotracheal tube terminates 1.3 cm above the quin. Right central venous cath eter terminates in the right atrium. The enteric tube courses below the left hemidiaphragm and the ti p extends outside the field of view. Lungs: Mild bilateral opacities suggesting vascular congestion. Pleura: No effusion. No pneumothorax. Cardiomediastinal contours: Unremarkable Bones: No acute osseous abnormality. Status post median sternotomy. IMPRESSION: 1. Stable position of the support lines and tubes. 2. Mild bilateral opacities are similar to the prior study which may reflect pulmonary vascular conge stion.
[2024-08-02 05:32] LABS: Anisocytosis Slight; Band Neutrophils % (manual) 2; Lymphocytes % (manual) 9 (10.0-50.0); Monocytes % (manual) 11 (0-12); Myelocytes % 1; Platelet Estimate Decreased
[2024-08-02 05:34] LABS: Stomatocytes Few
[2024-08-02] MEDS: SODIUM CHL 0.9% 1000 ML BAG XX ONE (06:35)
[2024-08-02] MEDS: ALBUMIN 25% 100 ML IV PRN (07:00)
--- NOTE | 2024-08-02 09:29 | DVHPN2 ---
Progress Note Date Seen: Aug 02, 2024 Resident Creating Document: SULTANA GARCIA RESIDENT Has the PT tested + for MRSA If YES, has PT been informed?: No Medical Necessity Reason Pt with a Central, PICC or Fol: Yes The following are medically ne: Central Line Subjective Review of Systems Patient seen and examined in the ICU. Up trending LFTs, bilirubin stable at 9. Underwent hemodialysis this morning, 3 L drained. Two bowel movements overnight which were soft and brown. On enteral feeding Respiratory cultures were showing stenotrophomonas was started on TMP SMX. Vancomycin was discontinued. Objective vital signs Vital Sign Date Time Temp Pulse Resp B/P (MAP) Pulse Ox O2 Delivery O2 Flow Rate FiO2 08/02/24 08:10 92 29 107/56 (73) 99 30 08/02/24 04:00 97.9 97.9 08/01/24 20:00 Mechanical Ventilator+ Total Intake and Output 08/01/24 08/01/24 08/02/24 15:00 23:00 07:00 Intake Total 652.0 ml 352.25 ml 373.5 ml Output Total 10 ml Balance 652.0 ml 342.25 ml 373.5 ml medications Current Medications Medications Dose Ordered Sig/Rey Route Start Time Stop Time Status Last Admin Dose Admin Vancomycin HCl 0 ml @ 0 mls/hr UD IV 07/08/24 17:00 Cancel Sodium Chloride 10 ml Q8HR IV 07/09/24 06:00 08/02/24 06:56 10 ML Vasopressin 20 units/Sodium Chloride 100 ml @ 9 mls/hr Q11H7M IV 07/09/24 13:15 07/29/24 20:25 6 MLS/HR Norepinephrine Bitartrate 32 mg/ Sodium Chloride 250 ml @ 0.938 mls/ hr Q24H IV 07/09/24 15:30 07/29/24 20:00 13.125 MLS/HR Phenylephrine HCl 80 mg/Sodium Chloride 250 ml @ 7.5 mls/hr Q24H IV 07/09/24 15:45 07/30/24 09:00 29.063 MLS/HR Epinephrine HCl 250 ml @ 7.5 mls/hr Q24H IV 07/09/24 17:00 07/26/24 11:28 7.5 MLS/HR Albumin Human 50 ml @ 100 mls/hr PRN PRN IV 07/13/24 08:30 Cancel Albumin Human 50 ml @ 50 mls/hr PRN PRN IV 07/13/24 08:20 07/28/24 08:10 50 MLS/HR Albuterol 2.5 mg Q6HR HHN 07/18/24 18:00 08/02/24 06:09 2.5 MG Ipratropium [place] 0.5 mg Q6HR NEB 07/18/24 18:00 08/02/24 06:09 0.5 MG Hydralazine HCl 10 mg Q4HR PRN IV 07/19/24 15:30 Hold 07/22/24 09:41 10 MG Labetalol HCl 10 mg Q2HPRN PRN IV 07/22/24 11:15 Bacitracin 1 applic DAILY TOP 07/24/24 10:00 08/01/24 09:58 1 APPLIC Amphotericin B Liposome 250 mg/ Dextrose 187.5 ml @ 93.75 mls/ hr DAILY@2100 IV 07/24/24 21:00 08/01/24 21:48 93.75 MLS/HR Acetaminophen 650 mg DAILY@2030 PO 07/24/24 20:30 08/01/24 20:56 650 MG Diphenhydramine HCl 25 mg DAILY@2030 IV 07/24/24 20:30 08/01/24 20:55 25 MG Diagnostic Test (Pha) 1 strip Q6HR 07/26/24 18:00 08/02/24 06:00 1 STRIP Insulin Human Regular FOLLOW SLIDING SCALE Q6HR SC 07/26/24 18:00 07/31/24 06:10 2 UNITS Dextrose 50 ml UD IV 07/26/24 15:45 Epoetin [place]-epbx 10,000 unit MWF@2100 SC 07/28/24 21:00 07/30/24 21:18 10,000 UNIT Midazolam HCl 50 ml @ 1 mls/hr Q24H IV 07/27/24 15:15 08/02/24 08:40 15 MLS/HR Fentanyl Citrate 250 ml @ 2.5 mls/hr Q24H IV 07/27/24 15:15 08/02/24 02:12 27.5 MLS/HR Amino Acids 0 ml @ 0 mls/hr PER PHARMACY IV 07/28/24 09:30 Pantoprazole Sodium 40 mg BID IV 07/28/24 10:00 08/01/24 21:50 40 MG Vancomycin HCl 0 ml @ 0 mls/hr UD IV 07/28/24 19:15 Cancel Hydrocortisone Sodium Succinate 100 mg Q8HR IV 07/29/24 14:00 08/02/24 06:56 100 MG Enteral Nutritional Formula 1,000 ml 30ML/HR GT 08/01/24 06:45 Cancel Enteral Nutritional Formula 1,000 ml 30ML/HR GT 08/01/24 09:15 Fat Emulsion Intravenous 50 ml/ Sodium Chloride 40 meq/Potassium Chloride 40 meq/ Magnesium Sulfate 12 meq/ Multivitamins 10 ml/Amino Acids/ Dextrose 1,093 ml @ 46 mls/hr [id number] IV 08/01/24 22:00 08/02/24 21:59 Trimethoprim/ Sulfamethoxazole 15 ml/Dextrose 265 ml @ 176.667 mls/hr DAILY@2200 IV 08/01/24 22:00 08/01/24 21:57 176.667 MLS/HR Albumin Human 100 ml @ 100 mls/hr PRN PRN IV 08/02/24 06:45 08/02/24 08:00 100 MLS/HR Examination GENERAL: Intubated on ventilator. obese. NG output bilious, bleeding from the mouth LUNGS: Decreased breath sounds. CARDIOVASCULAR: Heart sounds are good. ABDOMEN: Soft. Nontender, normoactive bowel sounds. Resolving Left lower quadrant maculopapular rash EXT: Upper and lower extremity edema laboratory and microbiology Laboratory Tests 08/02/24 03:20 Test 08/02/24 03:20 Range/Units Serum Glucose 80 74-106 mg/dL Microbiology Date/Time Source Procedure Growth Status 07/27/24 16:00 Sputum Gram Stain - Final Resulted 07/27/24 16:00 Respiratory Culture - Preliminary Stenotrophomonas maltophilia Resulted 07/26/24 14:50 Blood Blood Culture - Final NO GROWTH AFTER 5 DAYS OF INCUBATION. Complete 07/09/24 19:55 Trachea Gram Stain - Final Complete 07/09/24 19:55 Trachea Respiratory Culture - Final Complete Labs and/or images reviewed: Labs reviewed by me, Image(s) reviewed by me Problem List/Assessment/Plan Problem List/Assessment/Plan Active GI bleeding requiring transfusion - unspecified cause Acute respiratory failure-> reintubated uremic acidosis / lactic acidosis septic shock with E Coli bacteremia Pneumonia with stenotrophomonas Coronary artery disease status post CABG in 2021 fungal infection lower extremity wound Macrocytic anemia hypoglycemia hyperkalemia Severe thrombocytopenia severe fluid overload Plan: Given that the patient's hemoglobin is stable and no episodes of hematemesis/melena/hematochezia noted, patient's GI bleeding is likely resolved. Recommend continuing with conservative management for now. Patient is unstable for any GI procedure currently. Continue IV PPI b.i.d. 40 mg 07/29-1 unit of packed RBC and 1 unit of platelet ordered Maintain hemoglobin greater than 7 G per dL, transfuse as necessary HD treatment pressors to keep MAP > 65 fluid removal as tolerated Continue TMP SMX Enteral feeding as tolerated clinically unstable, prognosis is poor Case discussed with Dr. [place] Plan discussed with: Patient, Other (Nurse Lange) Dietary Evaluation Review Comments: 1) If GI is accessible consider Nepro 1.8 @ 20 ml/hr with current rate of propofol on board 2) If pt remains NPO >7days of NPO status, provide TPN to meet at least 75% of estimated needs 3) Advance pt diet when medically feasible to a Renal Standard diet modified per ENGRAVER TENDER recommendations Expected Outcomes/Goals: 1) Pt to receive nutrition support within 7 days of NPO status 2) Pt diet to advance 3) F/U in 2-3 days SULTANA GARCIA RESIDENT Aug 02, 2024 09:29
--- NOTE | 2024-08-02 12:50 | DVHPN2 ---
Progress Note - Dictate Date Seen: Aug 02, 2024 Has the PT tested + for MRSA If YES, has PT been informed?: No Medical Necessity Reason Pt with a Central, PICC or Fol: Yes The following are medically ne: Central Line Subjective Mr. Daniel altered gentleman with a history of hypertension, dyslipidemia, coronary artery disease, kidney cancer status post nephrectomy, kidney failure on hemodialysis, the patient was brought to the [facility]. He was reintubated on 06/26/25 I have seen and examined the patient, I have discussed with his nurse. he is slightly responsive strong painful stimuli, he is no more sedation, but no pressor drip The swelling in the extremity is worse, especially in the left arm Fentanyl 1275 mcg/hour, Versed 15 mg/hour Blood culture, 07/08/2024: E coli HIV & II Ab, 07/10/24: Negative ABG, 07/09/2024: Metabolic acidosis, 07/10/2024: Metabolic acidosis, WBC/HB/PLT/MCV, 07/19/2024: 13.1/9.6/65/105.9 PT/INR/PTT, 07/11/2024: 35.6/3.63/38.4, 07/08/2024: 17.4/1.73/34.2, 07/28/2024: 17.1/1.7 BUN/CR, 07/09/2024: 59/3.03 07/19/2024: 78/4.54 07/20/2024: 92/5.37 Lactic acid, 07/08/2019 5:3.1, 07/09/2024: 9.6, 07/10/24: 15.5, 07/11/2024: 449, 12.2, 07/29/2024: 43/2.02 HGB A1c, : 3.8 CPK 07/08/2019 5:114, 07/19/2024: 1579 TBI/AST/ALT/AP, once the 925, 0.6/244/561/105, 07/09/2024: 1.1/306/563/101, 07/19/2024: 12/212/261/138, 07/28/2024, 8.9/76/23/160 Hepatitis panel, : Negative TG/HDL/LDL/HDL, 07/10/2024: 364/60/5/<5 Vitamin B12, 07/19/2024: >4000 Folic acid 07/19/2024: 9.12 TSH, 07/10/2024: 0.33 EEG 07/19/2024: inadequate but likely mildly abnormal EEG Chest x-ray, 07/08/2024: Bronchovascular crowding. Underlying mild pulmonary vascular congestion can not be excluded Obscuration of the left hemidiaphragm which may be from overlying cardiac silhouette with underlying pleural effusion /atelectasis / pneumonia not excluded. Chest x-ray, 07/09/2024: 1. Left lower lobe opacity may reflect atelectasis or mild pneumonia. 2. Mild interstitial pulmonary edema. 3. Small left pleural effusion. 4. Lines and tubes as above (Endotracheal tube terminates 1.8 cm above the quin) Chest x-ray, 07/17/2024: Endotracheal tube terminates 4.8 cm from the quin. Enteric tube is overlying the plane of the stomach Chest x-ray, 07/27/2024: Cardiomegaly with pulmonary congestion. Left basilar consolidation with small effusion Chest X-ray, 08/02/2024: 1. Stable position of the support lines and tubes. 2. Mild bilateral opacities are similar to the prior study which may reflect pulmonary vascular congestion CT head, 07/19/2024: Atrophy. No acute intracranial pathology vital signs Vital Sign Date Time Temp Pulse Resp B/P (MAP) Pulse Ox O2 Delivery O2 Flow Rate FiO2 08/02/24 12:31 110/53 08/02/24 11:31 86 26 99 30 08/02/24 04:00 97.9 97.9 08/01/24 20:00 Mechanical Ventilator+ Total Intake and Output 08/01/24 08/01/24 08/02/24 15:00 23:00 07:00 Intake Total 652.0 ml 352.25 ml 373.5 ml Output Total 10 ml Balance 652.0 ml 342.25 ml 373.5 ml medications Current Medications Medications Dose Ordered Sig/Rey Route Start Time Stop Time Status Last Admin Dose Admin Vancomycin HCl 0 ml @ 0 mls/hr UD IV 07/08/24 17:00 Cancel Sodium Chloride 10 ml Q8HR IV 07/09/24 06:00 08/02/24 06:56 10 ML Vasopressin 20 units/Sodium Chloride 100 ml @ 9 mls/hr Q11H7M IV 07/09/24 13:15 07/29/24 20:25 6 MLS/HR Norepinephrine Bitartrate 32 mg/ Sodium Chloride 250 ml @ 0.938 mls/ hr Q24H IV 07/09/24 15:30 07/29/24 20:00 13.125 MLS/HR Phenylephrine HCl 80 mg/Sodium Chloride 250 ml @ 7.5 mls/hr Q24H IV 07/09/24 15:45 07/30/24 09:00 29.063 MLS/HR Epinephrine HCl 250 ml @ 7.5 mls/hr Q24H IV 07/09/24 17:00 07/26/24 11:28 7.5 MLS/HR Albumin Human 50 ml @ 100 mls/hr PRN PRN IV 07/13/24 08:30 Cancel Albumin Human 50 ml @ 50 mls/hr PRN PRN IV 07/13/24 08:20 07/28/24 08:10 50 MLS/HR Albuterol 2.5 mg Q6HR HHN 07/18/24 18:00 08/02/24 11:30 2.5 MG Ipratropium [place] 0.5 mg Q6HR NEB 07/18/24 18:00 08/02/24 11:30 0.5 MG Hydralazine HCl 10 mg Q4HR PRN IV 07/19/24 15:30 Hold 07/22/24 09:41 10 MG Labetalol HCl 10 mg Q2HPRN PRN IV 07/22/24 11:15 Bacitracin 1 applic DAILY TOP 07/24/24 10:00 08/02/24 10:52 1 APPLIC Amphotericin B Liposome 250 mg/ Dextrose 187.5 ml @ 93.75 mls/ hr DAILY@2099 IV 07/24/24 21:00 08/01/24 21:48 93.75 MLS/HR Acetaminophen 650 mg DAILY@2029 PO 07/24/24 20:30 08/01/24 20:56 650 MG Diphenhydramine HCl 25 mg DAILY@2029 IV 07/24/24 20:30 08/01/24 20:55 25 MG Diagnostic Test (Pha) 1 strip Q6HR 07/26/24 18:00 08/02/24 06:00 1 STRIP Insulin Human Regular FOLLOW SLIDING SCALE Q6HR SC 07/26/24 18:00 07/31/24 06:10 2 UNITS Dextrose 50 ml UD IV 07/26/24 15:45 Epoetin Justus-epbx 10,000 unit MWF@2100 SC 07/28/24 21:00 07/30/24 21:18 10,000 UNIT Midazolam HCl 50 ml @ 1 mls/hr Q24H IV 07/27/24 15:15 08/02/24 12:31 15 MLS/HR Fentanyl Citrate 250 ml @ 2.5 mls/hr Q24H IV 07/27/24 15:15 08/02/24 02:12 27.5 MLS/HR Amino Acids 0 ml @ 0 mls/hr PER PHARMACY IV 07/28/24 09:30 Pantoprazole Sodium 40 mg BID IV 07/28/24 10:00 08/02/24 10:52 40 MG Vancomycin HCl 0 ml @ 0 mls/hr UD IV 07/28/24 19:15 Cancel Hydrocortisone Sodium Succinate 100 mg Q8HR IV 07/29/24 14:00 08/02/24 06:56 100 MG Enteral Nutritional Formula 1,000 ml 30ML/HR GT 08/01/24 06:45 Cancel Enteral Nutritional Formula 1,000 ml 30ML/HR GT 08/01/24 09:15 Fat Emulsion Intravenous 50 ml/ Sodium Chloride 40 meq/Potassium Chloride 40 meq/ Magnesium Sulfate 12 meq/ Multivitamins 10 ml/Amino Acids/ Dextrose 1,093 ml @ 46 mls/hr [id number] IV 08/01/24 22:00 08/02/24 21:59 Trimethoprim/ Sulfamethoxazole 15 ml/Dextrose 265 ml @ 176.667 mls/hr DAILY@2200 IV 08/01/24 22:00 08/01/24 21:57 176.667 MLS/HR Albumin Human 100 ml @ 100 mls/hr PRN PRN IV 08/02/24 06:45 08/02/24 08:00 100 MLS/HR Fat Emulsion Intravenous 50 ml/ Sodium Chloride 60 meq/Sodium Acetate 40 meq/ Potassium Acetate 40 meq/Calcium Gluconate 2.3 meq/ Magnesium Sulfate 10 meq/ Multivitamins 10 ml/Chromium/ Copper/Manganese/ Zinc 1 ml/Amino Acids/Dextrose 1,123.4462 ml @ 47 mls/hr [id number] IV 08/02/24 22:00 08/03/24 21:59 objective The patient is well-nourished and well-developed with no distress. The patient is intubated MENTAL STATUS: Subjective CRANIAL NERVES: Pupils are equal, round and nonreactive, small. There are corneal reflexes and doll's eyes phenomenon. No signs of facial weakness. There are gagging or coughing reflexes SENSATION: No responses to pain stimuli. MOTOR: Normal tone in the upper and lower extremity. Normal muscle bulk. No fasciculations. No spontaneous movement. REFLEXES: Deep tendon reflexes are symmetrical. No pathological reflexes. CEREBELLAR/COORDINATION: Deferred GAIT/STATION: deferred. laboratory and microbiology Laboratory Tests 08/02/24 03:20 Test 08/02/24 03:20 Range/Units Serum Glucose 80 74-106 mg/dL Problem List Altered mental status, Metabolic encephalopathy Hypoxic encephalopathy Toxic encephalopathy Hepatic encephalopathy Respiratory failure, reintubated Sepsis/septic shock Pneumonia Cellulitis Metabolic acidosis Coagulopathy secondary to liver failure Elevated liver function test Thrombocytopenia Macrocytic anemia Elevated liver function tests ICU myopathy Assessment/Plan Monitoring Supportive treatment ICU care Venous duplex to the arms MRI brain scan later Stabilize vitals/pressor drip Respiratory support/vent management Oxygen Antibiotics GI prophylaxis/pantoprazole Infectious disease on case Pulmonary on case Cardiology on case Nephrology on case More recommendation per clinical course This medical document was created using an electronic medical record system with [employer] computerized dictation system. Although this document has been carefully reviewed, there may still be some phonetic and typographical errors. These areas are purely typographical due to imperfections of the software programs, and do not reflect any compromise in the patient's medical care Prognosis guarded Dietary Evaluation Review Comments: 1) If GI is accessible consider Nepro 1.8 @ 20 ml/hr with current rate of propofol on board 2) If pt remains NPO >7days of NPO status, provide TPN to meet at least 75% of estimated needs 3) Advance pt diet when medically feasible to a Renal Standard diet modified per DISTRICT MANAGER POSTAL SERVICE recommendations Expected Outcomes/Goals: 1) Pt to receive nutrition support within 7 days of NPO status 2) Pt diet to advance 3) F/U in 2-3 days Plan discussed with: SUMIT Bolanos MD Aug 02, 2024 12:50
--- NOTE | 2024-08-02 12:56 | DVHPN2 ---
Subjective Intubated and sedated On Versed and fentanyl drips FiO2 30% PEEP of 8 Reviewed: Care Plan, H&P, Labs, Medications Changes from previous H/P or p: Changes General: Per HPI Eyes: No Pain, No Vision change, No Conjunctivae inflammation, No Eyelid inflammation, No Other, No Redness ENT: No Ear pain, No Ear discharge, No Nose pain, No Nose discharge, No Nose congestion, No Mouth pain, No Mouth swelling, No Throat pain, No Throat swelling, No Other Cardiovascular: Chest Pain Respiratory: Cough Gastrointestinal: No Nausea, No Vomiting, No Abdominal Pain, No Diarrhea, No Constipation, No Melena, No Hematochezia, No Other Genitourinary: No Dysuria, No Frequency, No Incontinence, No Hematuria, No Retention, No Other Musculoskeletal: other, leg pain Skin: Other Objective Vitals Vital Signs Date Time Temp Pulse Resp B/P (MAP) Pulse Ox O2 Delivery O2 Flow Rate FiO2 08/02/24 12:31 110/53 08/02/24 11:31 86 26 99 30 08/02/24 04:00 97.9 97.9 08/01/24 20:00 Mechanical Ventilator+ Intake/Output Intake and Output 08/02/24 07:00 Intake Total 1377.75 ml Output Total 10 ml Balance 1367.75 ml Intake Oral 0 ml IV Total 1256.75 ml Tube Feeding 121 ml Emesis 10 ml # Bowel Movements 3 General Appearance: Other (Intubated and sedated) Lungs: Other (Bilateral rhonchi) Cardiovascular: Regular rate, Normal S1, Normal S2 Abdomen: Normal bowel sounds, Soft, No tenderness Extremities: Other (2+ edema all upper and lower extremities more pronounced on the left arm) Medications Current Medications Medications Dose Ordered Sig/Rey Route Start Time Stop Time Status Last Admin Dose Admin Vancomycin HCl 0 ml @ 0 mls/hr UD IV 07/08/24 17:00 Cancel Sodium Chloride 10 ml Q8HR IV 07/09/24 06:00 08/02/24 06:56 10 ML Vasopressin 20 units/Sodium Chloride 100 ml @ 9 mls/hr Q11H7M IV 07/09/24 13:15 07/29/24 20:25 6 MLS/HR Norepinephrine Bitartrate 32 mg/ Sodium Chloride 250 ml @ 0.938 mls/ hr Q24H IV 07/09/24 15:30 07/29/24 20:00 13.125 MLS/HR Phenylephrine HCl 80 mg/Sodium Chloride 250 ml @ 7.5 mls/hr Q24H IV 07/09/24 15:45 07/30/24 09:00 29.063 MLS/HR Epinephrine HCl 250 ml @ 7.5 mls/hr Q24H IV 07/09/24 17:00 07/26/24 11:28 7.5 MLS/HR Albumin Human 50 ml @ 100 mls/hr PRN PRN IV 07/13/24 08:30 Cancel Albumin Human 50 ml @ 50 mls/hr PRN PRN IV 07/13/24 08:20 07/28/24 08:10 50 MLS/HR Albuterol 2.5 mg Q6HR HHN 07/18/24 18:00 08/02/24 11:30 2.5 MG Ipratropium [place] 0.5 mg Q6HR NEB 07/18/24 18:00 08/02/24 11:30 0.5 MG Hydralazine HCl 10 mg Q4HR PRN IV 07/19/24 15:30 Hold 07/22/24 09:41 10 MG Labetalol HCl 10 mg Q2HPRN PRN IV 07/22/24 11:15 Bacitracin 1 applic DAILY TOP 07/24/24 10:00 08/02/24 10:52 1 APPLIC Amphotericin B Liposome 250 mg/ Dextrose 187.5 ml @ 93.75 mls/ hr DAILY@2099 IV 07/24/24 21:00 08/01/24 21:48 93.75 MLS/HR Acetaminophen 650 mg DAILY@2029 PO 07/24/24 20:30 08/01/24 20:56 650 MG Diphenhydramine HCl 25 mg DAILY@2029 IV 07/24/24 20:30 08/01/24 20:55 25 MG Diagnostic Test (Pha) 1 strip Q6HR 07/26/24 18:00 08/02/24 06:00 1 STRIP Insulin Human Regular FOLLOW SLIDING SCALE Q6HR SC 07/26/24 18:00 07/31/24 06:10 2 UNITS Dextrose 50 ml UD IV 07/26/24 15:45 Epoetin Justus-epbx 10,000 unit MWF@2100 PR 07/28/24 21:00 07/30/24 21:18 10,000 UNIT Midazolam HCl 50 ml @ 1 mls/hr Q24H IV 07/27/24 15:15 08/02/24 12:31 15 MLS/HR Fentanyl Citrate 250 ml @ 2.5 mls/hr Q24H IV 07/27/24 15:15 08/02/24 02:12 27.5 MLS/HR Amino Acids 0 ml @ 0 mls/hr PER PHARMACY IV 07/28/24 09:30 Pantoprazole Sodium 40 mg BID IV 07/28/24 10:00 08/02/24 10:52 40 MG Vancomycin HCl 0 ml @ 0 mls/hr UD IV 07/28/24 19:15 Cancel Hydrocortisone Sodium Succinate 100 mg Q8HR IV 07/29/24 14:00 08/02/24 06:56 100 MG Enteral Nutritional Formula 1,000 ml 30ML/HR GT 08/01/24 06:45 Cancel Enteral Nutritional Formula 1,000 ml 30ML/HR GT 08/01/24 09:15 Fat Emulsion Intravenous 50 ml/ Sodium Chloride 40 meq/Potassium Chloride 40 meq/ Magnesium Sulfate 12 meq/ Multivitamins 10 ml/Amino Acids/ Dextrose 1,093 ml @ 46 mls/hr [id number] IV 08/01/24 22:00 08/02/24 21:59 Trimethoprim/ Sulfamethoxazole 15 ml/Dextrose 265 ml @ 176.667 mls/hr DAILY@2200 IV 08/01/24 22:00 08/01/24 21:57 176.667 MLS/HR Albumin Human 100 ml @ 100 mls/hr PRN PRN IV 08/02/24 06:45 08/02/24 08:00 100 MLS/HR Fat Emulsion Intravenous 50 ml/ Sodium Chloride 60 meq/Sodium Acetate 40 meq/ Potassium Acetate 40 meq/Calcium Gluconate 2.3 meq/ Magnesium Sulfate 10 meq/ Multivitamins 10 ml/Chromium/ Copper/Manganese/ Zinc 1 ml/Amino Acids/Dextrose 1,123.4462 ml @ 47 mls/hr [id number] IV 08/02/24 22:00 08/03/24 21:59 Laboratory Results Laboratory Tests 08/02/24 03:20 Chemistry Test 08/02/24 03:20 Albumin 2.9 g/dL (3.2-4.8) L Calcium Level 8.3 mg/dL (8.7-10.4) L Magnesium Level 2.2 mg/dL (1.6-2.6) Phosphorus Level 3.2 mg/dL (2.4-5.1) Total Protein 5.7 g/dL (5.7-8.2) LFT Test 08/02/24 03:20 Alanine Aminotransferase (ALT) 75 U/L (7-40) H Alkaline Phosphatase 208 U/L (46-116) H Aspartate Amino Transferase (AST) 250 U/L (13-40) H Total Bilirubin 9.7 mg/dL (0.2-1.0) H Blood Gas Results Test 08/02/24 06:48 Arterial Blood pH 7.399 (7.350-7.450) FiO2 % 30.0 Microbiology Microbiology Date/Time Source Procedure Growth Status 07/27/24 16:00 Sputum Gram Stain - Final Resulted 07/27/24 16:00 Respiratory Culture - Preliminary Stenotrophomonas maltophilia Resulted 07/26/24 14:50 Blood Blood Culture - Final NO GROWTH AFTER 5 DAYS OF INCUBATION. Complete 07/09/24 19:55 Trachea Gram Stain - Final Complete 07/09/24 19:55 Trachea Respiratory Culture - Final Complete Assessment/Plan Assessment/Plan Acute hypoxic respiratory failure End-stage renal disease on hemodialysis Dilated cardiomyopathy Acute on chronic systolic and diastolic heart failure with ejection fraction 25% Status post severe sepsis with septic shock due to bacteremia and E coli ESBL Morbid obesity Thrombocytopenia Sepsis with septic shock Hypoalbuminemia CAD Mixed hyperlipidemia DM2 PLAN: Sepsis: Amphotericin IV Bactrim IV Pneumonia with Stenotrophomonas maltophilia Bacteremia with E. coli ESBL HD per nephrology LUE edema: Rule out DVT, doppler US Off pressors Taper sedation as tolerated Will meet with family for plan of care Plan discussed with: Other My Orders Orders - DG AQUINO MD Procedure Category Date Status Time Communication Order ORDERS 08/02/24 Transmitted 12:18 Bi Lat Upper Dvt US 08/02/24 Logged 12:18 Date of Service: Aug 02, 2024 Billing Provider: DG AQUINO MD Common Visit Codes: NOT BILLABLE DG AQUINO MD Aug 02, 2024 12:56
--- NOTE | 2024-08-02 13:06 | DVH ---
US BI LAT UPPER DVT 08/02/2024 12:30 PM Clinical History: Arm swelling. R/O DVT Comparison: US LT UPPER DVT on DOS: 07/18/24, US BILAT LOWER DVT on DOS: 07/08/24 TECHNIQUE: Duplex Doppler evaluation of the venous systems of the upper extremities including color D oppler and spectral/pulsed waveform analysis was performed. FINDINGS: RIGHT UPPER EXTREMITY: The internal jugular vein demonstrates appropriate compressibility and waveform variability. The subclavian vein is patent on color Doppler evaluation without intraluminal thrombus and demonstra julia waveform variability. The visualized portion of the brachiocephalic vein is patent on color Doppler evaluation without intr aluminal thrombus and demonstrates waveform variability. The axillary vein demonstrates appropriate compressibility and waveform variability. The brachial veins demonstrate appropriate compressibility and patency on Doppler evaluation. The basilic vein demonstrates appropriate compressibility and patency on Doppler evaluation. The cephalic vein demonstrates appropriate compressibility and patency on Doppler evaluation. LEFT UPPER EXTREMITY: The internal jugular vein demonstrates appropriate compressibility and waveform variability. The subclavian vein is patent on color Doppler evaluation without intraluminal thrombus and demonstra julia waveform variability. The visualized portion of the brachiocephalic vein is patent on color Doppler evaluation without intr aluminal thrombus and demonstrates waveform variability. The axillary vein demonstrates appropriate compressibility and waveform variability. The brachial veins demonstrate appropriate compressibility and patency on Doppler evaluation. The basilic vein demonstrates appropriate compressibility and patency on Doppler evaluation. The cephalic vein demonstrates appropriate compressibility and patency on Doppler evaluation. IMPRESSION: 1. No venous thrombus identified in the right or left upper extremity vessels evaluated above. If cli nical concern/symptoms persist or worsen, short-interval follow-up study is suggested.
--- NOTE | 2024-08-02 15:49 | DVHPN2 ---
Progress Note Date Seen: Aug 02, 2024 Has the PT tested + for MRSA If YES, has PT been informed?: No Medical Necessity Reason Pt with a Central, PICC or Fol: Yes The following are medically ne: Central Line Subjective Patient reports: Other (No new events) Review of Systems: Deferred Objective vital signs Vital Sign Date Time Temp Pulse Resp B/P (MAP) Pulse Ox O2 Delivery O2 Flow Rate FiO2 08/02/24 14:54 110/53 08/02/24 14:27 88 24 98 30 08/02/24 08:00 Mechanical Ventilator+ 08/02/24 04:00 97.9 97.9 Total Intake and Output 08/01/24 08/01/24 08/02/24 15:00 23:00 07:00 Intake Total 652.0 ml 352.25 ml 373.5 ml Output Total 10 ml Balance 652.0 ml 342.25 ml 373.5 ml medications Current Medications Medications Dose Ordered Sig/Rey Route Start Time Stop Time Status Last Admin Dose Admin Vancomycin HCl 0 ml @ 0 mls/hr UD IV 07/08/24 17:00 Cancel Sodium Chloride 10 ml Q8HR IV 07/09/24 06:00 08/02/24 14:00 10 ML Vasopressin 20 units/Sodium Chloride 100 ml @ 9 mls/hr Q11H7M IV 07/09/24 13:15 07/29/24 20:25 6 MLS/HR Norepinephrine Bitartrate 32 mg/ Sodium Chloride 250 ml @ 0.938 mls/ hr Q24H IV 07/09/24 15:30 07/29/24 20:00 13.125 MLS/HR Phenylephrine HCl 80 mg/Sodium Chloride 250 ml @ 7.5 mls/hr Q24H IV 07/09/24 15:45 07/30/24 09:00 29.063 MLS/HR Epinephrine HCl 250 ml @ 7.5 mls/hr Q24H IV 07/09/24 17:00 07/26/24 11:28 7.5 MLS/HR Albumin Human 50 ml @ 100 mls/hr PRN PRN IV 07/13/24 08:30 Cancel Albumin Human 50 ml @ 50 mls/hr PRN PRN IV 07/13/24 08:20 07/28/24 08:10 50 MLS/HR Albuterol 2.5 mg Q6HR HHN 07/18/24 18:00 08/02/24 11:30 2.5 MG Ipratropium [place] 0.5 mg Q6HR NEB 07/18/24 18:00 08/02/24 11:30 0.5 MG Hydralazine HCl 10 mg Q4HR PRN IV 07/19/24 15:30 Hold 07/22/24 09:41 10 MG Labetalol HCl 10 mg Q2HPRN PRN IV 07/22/24 11:15 Bacitracin 1 applic DAILY TOP 07/24/24 10:00 08/02/24 10:52 1 APPLIC Amphotericin B Liposome 250 mg/ Dextrose 187.5 ml @ 93.75 mls/ hr DAILY@2100 IV 07/24/24 21:00 08/01/24 21:48 93.75 MLS/HR Acetaminophen 650 mg DAILY@2029 PO 07/24/24 20:30 08/01/24 20:56 650 MG Diphenhydramine HCl 25 mg DAILY@2029 IV 07/24/24 20:30 08/01/24 20:55 25 MG Diagnostic Test (Pha) 1 strip Q6HR 07/26/24 18:00 08/02/24 12:00 1 STRIP Insulin Human Regular FOLLOW SLIDING SCALE Q6HR SC 07/26/24 18:00 07/31/24 06:10 2 UNITS Dextrose 50 ml UD IV 07/26/24 15:45 Epoetin Justus-epbx 10,000 unit MWF@2100 SC 07/28/24 21:00 07/30/24 21:18 10,000 UNIT Midazolam HCl 50 ml @ 1 mls/hr Q24H IV 07/27/24 15:15 08/02/24 12:31 15 MLS/HR Fentanyl Citrate 250 ml @ 2.5 mls/hr Q24H IV 07/27/24 15:15 08/02/24 02:12 27.5 MLS/HR Amino Acids 0 ml @ 0 mls/hr PER PHARMACY IV 07/28/24 09:30 Pantoprazole Sodium 40 mg BID IV 07/28/24 10:00 08/02/24 10:52 40 MG Vancomycin HCl 0 ml @ 0 mls/hr UD IV 07/28/24 19:15 Cancel Hydrocortisone Sodium Succinate 100 mg Q8HR IV 07/29/24 14:00 08/02/24 14:54 100 MG Enteral Nutritional Formula 1,000 ml 30ML/HR GT 08/01/24 06:45 Cancel Enteral Nutritional Formula 1,000 ml 30ML/HR GT 08/01/24 09:15 Trimethoprim/ Sulfamethoxazole 15 ml/Dextrose 265 ml @ 176.667 mls/hr DAILY@2200 IV 08/01/24 22:00 08/01/24 21:57 176.667 MLS/HR Albumin Human 100 ml @ 100 mls/hr PRN PRN IV 08/02/24 06:45 08/02/24 08:00 100 MLS/HR Metoclopramide HCl 5 mg Q8HR IV 08/02/24 22:00 Examination: MSK:Abnormal (Positive edema), SKIN:Abnormal, NEURO:Abnormal laboratory and microbiology Laboratory Tests 08/02/24 03:20 Test 08/02/24 03:20 Range/Units Serum Glucose 80 74-106 mg/dL Microbiology Date/Time Source Procedure Growth Status 07/27/24 16:00 Sputum Gram Stain - Final Resulted 07/27/24 16:00 Respiratory Culture - Preliminary Stenotrophomonas maltophilia Resulted 07/26/24 14:50 Blood Blood Culture - Final NO GROWTH AFTER 5 DAYS OF INCUBATION. Complete 07/09/24 19:55 Trachea Gram Stain - Final Complete 07/09/24 19:55 Trachea Respiratory Culture - Final Complete Problem List/Assessment/Plan Problem List/Assessment/Plan ESRD on HD hyperkalemia septic shock with gram-negative anabella bacteremia lower extremity wound anemia hypoglycemia recs Hemodialysis today UF 3 L off today Plan discussed with: Other My Orders My Orders Orders - FAYE KAUR MD Procedure Category Date Status Time Albumin 25% (Albutein) PHA 08/02/24 In Process 06:45 Dietary Evaluation Review Comments: 1) If GI is accessible consider Nepro 1.8 @ 20 ml/hr with current rate of propofol on board 2) If pt remains NPO >7days of NPO status, provide TPN to meet at least 75% of estimated needs 3) Advance pt diet when medically feasible to a Renal Standard diet modified per FORMING MACHINE OPERATOR recommendations Expected Outcomes/Goals: 1) Pt to receive nutrition support within 7 days of NPO status 2) Pt diet to advance 3) F/U in 2-3 days FAYE KAUR MD Aug 02, 2024 15:49
[2024-08-02] MEDS: METOCLOPRAMIDE HCL 5MG/ml INJ 2ml VIAL IV ONE (17:32)
--- NOTE | 2024-08-02 19:00 | DVHPN2 ---
Progress Note - Dictate Date Seen: Aug 02, 2024 Has the PT tested + for MRSA If YES, has PT been informed?: No Medical Necessity Reason Pt with a Central, PICC or Fol: Yes The following are medically ne: Central Line Subjective Patient was seen and evaluated in follow up in the ICU. Patient is intubated and sedated on ventilator. FiO2 remains 30%. Two bowel movements overnight. Patient received HD today with 3 L removed. Respiratory cultures growing Stenotrophomonas. HGB 7.7, HCT 23.1, BUN 49, INTERFACE ENGINEER 3.45. LFTs remain elevated. vital signs Vital Sign Date Time Temp Pulse Resp B/P (MAP) Pulse Ox O2 Delivery O2 Flow Rate FiO2 08/02/24 18:22 87 24 114/53 (73) 98 30 08/02/24 16:00 97.9 97.9 08/02/24 10:00 Mechanical Ventilator+ Total Intake and Output 08/01/24 08/01/24 08/02/24 15:00 23:00 07:00 Intake Total 652.0 ml 352.25 ml 373.5 ml Output Total 10 ml Balance 652.0 ml 342.25 ml 373.5 ml medications Current Medications Medications Dose Ordered Sig/Rey Route Start Time Stop Time Status Last Admin Dose Admin Vancomycin HCl 0 ml @ 0 mls/hr UD IV 07/08/24 17:00 Cancel Sodium Chloride 10 ml Q8HR IV 07/09/24 06:00 08/02/24 14:00 10 ML Vasopressin 20 units/Sodium Chloride 100 ml @ 9 mls/hr Q11H7M IV 07/09/24 13:15 07/29/24 20:25 6 MLS/HR Norepinephrine Bitartrate 32 mg/ Sodium Chloride 250 ml @ 0.938 mls/ hr Q24H IV 07/09/24 15:30 07/29/24 20:00 13.125 MLS/HR Phenylephrine HCl 80 mg/Sodium Chloride 250 ml @ 7.5 mls/hr Q24H IV 07/09/24 15:45 07/30/24 09:00 29.063 MLS/HR Epinephrine HCl 250 ml @ 7.5 mls/hr Q24H IV 07/09/24 17:00 07/26/24 11:28 7.5 MLS/HR Albumin Human 50 ml @ 100 mls/hr PRN PRN IV 07/13/24 08:30 Cancel Albumin Human 50 ml @ 50 mls/hr PRN PRN IV 07/13/24 08:20 07/28/24 08:10 50 MLS/HR Albuterol 2.5 mg Q6HR HHN 07/18/24 18:00 08/02/24 18:32 2.5 MG Ipratropium [place] 0.5 mg Q6HR NEB 07/18/24 18:00 08/02/24 18:32 0.5 MG Hydralazine HCl 10 mg Q4HR PRN IV 07/19/24 15:30 Hold 07/22/24 09:41 10 MG Labetalol HCl 10 mg Q2HPRN PRN IV 07/22/24 11:15 Bacitracin 1 applic DAILY TOP 07/24/24 10:00 08/02/24 10:52 1 APPLIC Amphotericin B Liposome 250 mg/ Dextrose 187.5 ml @ 93.75 mls/ hr DAILY@2100 IV 07/24/24 21:00 08/01/24 21:48 93.75 MLS/HR Acetaminophen 650 mg DAILY@2030 PO 07/24/24 20:30 08/01/24 20:56 650 MG Diphenhydramine HCl 25 mg DAILY@2029 IV 07/24/24 20:30 08/01/24 20:55 25 MG Diagnostic Test (Pha) 1 strip Q6HR 07/26/24 18:00 08/02/24 12:00 1 STRIP Insulin Human Regular FOLLOW SLIDING SCALE Q6HR SC 07/26/24 18:00 07/31/24 06:10 2 UNITS Dextrose 50 ml UD IV 07/26/24 15:45 Epoetin Justus-epbx 10,000 unit MWF@2100 SC 07/28/24 21:00 07/30/24 21:18 10,000 UNIT Midazolam HCl 50 ml @ 1 mls/hr Q24H IV 07/27/24 15:15 08/02/24 12:31 15 MLS/HR Fentanyl Citrate 250 ml @ 2.5 mls/hr Q24H IV 07/27/24 15:15 08/02/24 02:12 27.5 MLS/HR Pantoprazole Sodium 40 mg BID IV 07/28/24 10:00 08/02/24 10:52 40 MG Vancomycin HCl 0 ml @ 0 mls/hr UD IV 07/28/24 19:15 Cancel Hydrocortisone Sodium Succinate 100 mg Q8HR IV 07/29/24 14:00 08/02/24 14:54 100 MG Enteral Nutritional Formula 1,000 ml 30ML/HR GT 08/01/24 06:45 Cancel Enteral Nutritional Formula 1,000 ml 30ML/HR GT 08/01/24 09:15 Trimethoprim/ Sulfamethoxazole 15 ml/Dextrose 265 ml @ 176.667 mls/hr DAILY@2200 IV 08/01/24 22:00 08/01/24 21:57 176.667 MLS/HR Albumin Human 100 ml @ 100 mls/hr PRN PRN IV 08/02/24 06:45 08/02/24 08:00 100 MLS/HR Metoclopramide HCl 5 mg Q8HR IV 08/02/24 22:00 objective GENERAL: Intubated on ventilator. Morbidly obese. LUNGS: Decreased breath sounds. CARDIOVASCULAR: Heart sounds are good. ABDOMEN: Soft. EXT: BLE edema. laboratory and microbiology Laboratory Tests 08/02/24 03:20 Test 08/02/24 03:20 Range/Units Serum Glucose 80 74-106 mg/dL Problem List Hypotension secondary to septic shock. Coronary artery disease status post CABG in 2021. History of hypertension. Hyperlipidemia. Hyperkalemia. Acute anemia. Thrombocytopenia. Transaminitis. End-stage renal disease on hemodialysis. Renal cell carcinoma status post left nephrectomy. COPD. Asthma. Morbid obesity. Dilated cardiomyopathy. Metabolic encephalopathy. Assessment/Plan Continued all current supportive medical care. GI prophylactics. IV antibiotics as ordered. Vasopressors for hemodynamic support. Additional plan as per the hospital course. Critical care time of 45 minutes provided to include time spent evaluation of patient at bedside, when appropriate patient/family education for diagnosis, treatment plan, review of pertinent medical information and discussion of care with specialty providers and PCP. Mechanical ventilator parameters, treatment and adjustments have personally been reviewed by me and treatment plan by button reclaimer has also been reviewed. Dietary Evaluation Review Comments: 1) If GI is accessible consider Nepro 1.8 @ 20 ml/hr with current rate of propofol on board 2) If pt remains NPO >7days of NPO status, provide TPN to meet at least 75% of estimated needs 3) Advance pt diet when medically feasible to a Renal Standard diet modified per BREAKER UP recommendations Expected Outcomes/Goals: 1) Pt to receive nutrition support within 7 days of NPO status 2) Pt diet to advance 3) F/U in 2-3 days Plan discussed with: FRIDA Colon MD Aug 02, 2024 19:00
[2024-08-02] MEDS: Nepro With Carb Steady 1 Liter Bottle GT SCH (20:55)
[2024-08-02] MEDS: METOCLOPRAMIDE HCL 5MG/ml INJ 2ml VIAL IV SCH (21:17)
[2024-08-02 21:39] LABS: Base Excess 2.9 mmol/L (-2.0-3.0)
[2024-08-02] MEDS ORDERED: TPN PER PHARMACY IV NR (22:00)
--- NOTE | 2024-08-02 22:21 | DVHPN2 ---
Progress Note - Dictate Date Seen: Aug 02, 2024 Has the PT tested + for MRSA If YES, has PT been informed?: No Medical Necessity Reason Pt with a Central, PICC or Fol: Yes The following are medically ne: Central Line Subjective Patient seen and examined at bedside. Sedated, intubated on mechanical ventilator. Overnight events reviewed. vital signs Vital Sign Date Time Temp Pulse Resp B/P (MAP) Pulse Ox O2 Delivery O2 Flow Rate FiO2 08/02/24 20:30 94 24 101/48 (65) 98 30 08/02/24 16:00 97.9 97.9 08/02/24 10:00 Mechanical Ventilator+ Total Intake and Output 08/01/24 08/01/24 08/02/24 15:00 23:00 07:00 Intake Total 652.0 ml 352.25 ml 416.0 ml Output Total 10 ml Balance 652.0 ml 342.25 ml 416.0 ml medications Current Medications Medications Dose Ordered Sig/Rey Route Start Time Stop Time Status Last Admin Dose Admin Vancomycin HCl 0 ml @ 0 mls/hr UD IV 07/08/24 17:00 Cancel Sodium Chloride 10 ml Q8HR IV 07/09/24 06:00 08/02/24 21:18 10 ML Vasopressin 20 units/Sodium Chloride 100 ml @ 9 mls/hr Q11H7M IV 07/09/24 13:15 07/29/24 20:25 6 MLS/HR Norepinephrine Bitartrate 32 mg/ Sodium Chloride 250 ml @ 0.938 mls/ hr Q24H IV 07/09/24 15:30 07/29/24 20:00 13.125 MLS/HR Phenylephrine HCl 80 mg/Sodium Chloride 250 ml @ 7.5 mls/hr Q24H IV 07/09/24 15:45 07/30/24 09:00 29.063 MLS/HR Epinephrine HCl 250 ml @ 7.5 mls/hr Q24H IV 07/09/24 17:00 07/26/24 11:28 7.5 MLS/HR Albumin Human 50 ml @ 100 mls/hr PRN PRN IV 07/13/24 08:30 Cancel Albumin Human 50 ml @ 50 mls/hr PRN PRN IV 07/13/24 08:20 07/28/24 08:10 50 MLS/HR Albuterol 2.5 mg Q6HR HHN 07/18/24 18:00 08/02/24 18:32 2.5 MG Ipratropium [place] 0.5 mg Q6HR NEB 07/18/24 18:00 08/02/24 18:32 0.5 MG Hydralazine HCl 10 mg Q4HR PRN IV 07/19/24 15:30 Hold 07/22/24 09:41 10 MG Labetalol HCl 10 mg Q2HPRN PRN IV 07/22/24 11:15 Bacitracin 1 applic DAILY TOP 07/24/24 10:00 08/02/24 10:52 1 APPLIC Acetaminophen 650 mg DAILY@2029 PO 07/24/24 20:30 08/02/24 21:17 650 MG Diphenhydramine HCl 25 mg DAILY@2029 IV 07/24/24 20:30 08/02/24 21:17 25 MG Diagnostic Test (Pha) 1 strip Q6HR 07/26/24 18:00 08/02/24 18:00 1 STRIP Insulin Human Regular FOLLOW SLIDING SCALE Q6HR RI 07/26/24 18:00 07/31/24 06:10 2 UNITS Dextrose 50 ml UD IV 07/26/24 15:45 Epoetin Justus-epbx 10,000 unit MWF@2100 RI 07/28/24 21:00 08/02/24 21:16 10,000 UNIT Midazolam HCl 50 ml @ 1 mls/hr Q24H IV 07/27/24 15:15 08/02/24 12:31 15 MLS/HR Fentanyl Citrate 250 ml @ 2.5 mls/hr Q24H IV 07/27/24 15:15 08/02/24 19:29 30 MLS/HR Pantoprazole Sodium 40 mg BID IV 07/28/24 10:00 08/02/24 21:17 40 MG Vancomycin HCl 0 ml @ 0 mls/hr UD IV 07/28/24 19:15 Cancel Hydrocortisone Sodium Succinate 100 mg Q8HR IV 07/29/24 14:00 08/02/24 21:17 100 MG Enteral Nutritional Formula 1,000 ml 30ML/HR GT 08/01/24 06:45 Cancel Enteral Nutritional Formula 1,000 ml 30ML/HR GT 08/01/24 09:15 08/02/24 20:55 1,000 ML Trimethoprim/ Sulfamethoxazole 15 ml/Dextrose 265 ml @ 176.667 mls/hr DAILY@2200 IV 08/01/24 22:00 08/02/24 21:16 176.667 MLS/HR Albumin Human 100 ml @ 100 mls/hr PRN PRN IV 08/02/24 06:45 08/02/24 08:00 100 MLS/HR Metoclopramide HCl 5 mg Q8HR IV 08/02/24 22:00 08/02/24 21:17 5 MG Micafungin Sodium 150 mg/Sodium Chloride 150 ml @ 100 mls/hr DAILY IV 08/03/24 10:00 objective Gen.: Patient lying in bed in medical ICU. Sedated, intubated on mechanical ventilator. Head: Normocephalic, atraumatic. Eyes: PERRLA. Ears: Normal external anatomy. Throat: Endotracheal tube and orogastric tube in place. Neck: Supple, trachea midline. Chest: Transmitted breath sounds bilaterally. Decreased air entry bilaterally. No wheezing. Bibasilar crackles. Cardiovascular: Positive S1, positive S2. Regular rate and rhythm. Abdomen: Positive bowel sounds in all 4 quadrants. Soft, nontender, nondistended. : Whiting in place. Normal external genitalia. Rectal: Deferred. Skin: Warm, dry. Intact. Extremities: 2+ radial pulses bilaterally. No lower extremity edema. Neuro: Sedated. laboratory and microbiology Laboratory Tests 08/02/24 03:20 Test 08/02/24 03:20 Range/Units Serum Glucose 80 74-106 mg/dL Assessment/Plan Impression: Acute hypoxic respiratory failure On mechanical ventilator Pulmonary edema Necrotizing fasciitis Septic shock Morbid obesity Events: Remains on vent support On AC mode with RR 24, VT 400, PEEP 8, FiO2 30% Sedated on Versed, Fentanyl. Continue antibiotics Continue antifungal Bronchodilators PRN IV steroids Off pressors, hemodynamically stable. Monitor hemodynamics GI recs appreciated Monitor hemoglobin Tube feeds for nutritional support Monitor hemoglobin Monitor platelet count Head of bed elevation Aspiration precautions. Monitor WBC Wound care Recommend PT eval. HD per Nephrology. Monitor renal function Monitor electrolytes. Supplement as necessary. Nephrology recommendations appreciated Awaiting family decision on goals of care. U/S Doppler of left upper extremity negative for DVT. 07/17/24 - S/p therapeutic bronchoscopy w/ RLL BAL - cleared mucous plugging from L6-L10 and R6-R10 See separate procedure note for details. Labs and imaging reviewed. Rest of plan as noted below. Plan: s/p intubation on 07/27/24 On mechanical ventilator; AC mode with RR 24, VT 400, PEEP 8, FiO2 30% Sedated on Versed, Fentanyl. Pressors if necessary for hemodynamic support Titrate to keep MAP above 65 mmHg/SBP above 90 mmHg. Monitor hemodynamics IV steroids Antibiotics F/u cultures. Monitor renal function Monitor electrolytes. Supplement as necessary. Monitor ins and outs. GI prophylaxis. DVT prophylaxis. Prognosis: Poor given patient's multiple co-morbidities. Condition: Critical Rest of plan per hospitalist and other consultants. A total of 35 minutes of critical care time was spent reviewing the patient record, examining the patient, making a diagnostic and therapeutic plan, discussing this plan with the medical personnel, following up on diagnostic studies and following the patient for clinical stability excluding any and all procedures. At least 50% of this time was spent in direct, [id number] contact. Thank you Dr. Johnson, for allowing me to participate in this patient's care. Further recommendations will depend on the patient's clinical course. Please do not hesitate to contact me if you have any questions or concerns. This medical document was created using an electronic medical record system with [employer] dictation system. Although these documentations are being carefully reviewed, there may still be some phonetic and typographical changes. The errors are purely typographical, due to imperfection on the software program, and do not reflect any compromise in the patient's medical care. Dietary Evaluation Review Comments: 1) If GI is accessible consider Nepro 1.8 @ 20 ml/hr with current rate of propofol on board 2) If pt remains NPO >7days of NPO status, provide TPN to meet at least 75% of estimated needs 3) Advance pt diet when medically feasible to a Renal Standard diet modified per ENVIRONMENTAL SPECIALIST recommendations Expected Outcomes/Goals: 1) Pt to receive nutrition support within 7 days of NPO status 2) Pt diet to advance 3) F/U in 2-3 days Plan discussed with: Spouse, Other (JACEK Clements) Critical Care Time(min): 35 EB DEJESUS MD Aug 02, 2024 22:21
--- NOTE | 2024-08-02 22:45 | DVHPN2 ---
Consult Progress Note Date Seen: Aug 02, 2024 Subjective Patient reports: Other (remains unresponsive , off all pressures and on minimal vent , swollen extremities upper and lower ) Objective vital signs Vital Sign Date Time Temp Pulse Resp B/P (MAP) Pulse Ox O2 Delivery O2 Flow Rate FiO2 08/02/24 20:30 94 24 101/48 (65) 98 30 08/02/24 16:00 97.9 97.9 08/02/24 10:00 Mechanical Ventilator+ Total Intake and Output 08/01/24 08/01/24 08/02/24 15:00 23:00 07:00 Intake Total 652.0 ml 352.25 ml 416.0 ml Output Total 10 ml Balance 652.0 ml 342.25 ml 416.0 ml medications Current Medications Medications Dose Ordered Sig/Rey Route Start Time Stop Time Status Last Admin Dose Admin Vancomycin HCl 0 ml @ 0 mls/hr UD IV 07/08/24 17:00 Cancel Sodium Chloride 10 ml Q8HR IV 07/09/24 06:00 08/02/24 21:18 10 ML Vasopressin 20 units/Sodium Chloride 100 ml @ 9 mls/hr Q11H7M IV 07/09/24 13:15 07/29/24 20:25 6 MLS/HR Norepinephrine Bitartrate 32 mg/ Sodium Chloride 250 ml @ 0.938 mls/ hr Q24H IV 07/09/24 15:30 07/29/24 20:00 13.125 MLS/HR Phenylephrine HCl 80 mg/Sodium Chloride 250 ml @ 7.5 mls/hr Q24H IV 07/09/24 15:45 07/30/24 09:00 29.063 MLS/HR Epinephrine HCl 250 ml @ 7.5 mls/hr Q24H IV 07/09/24 17:00 07/26/24 11:28 7.5 MLS/HR Albumin Human 50 ml @ 100 mls/hr PRN PRN IV 07/13/24 08:30 Cancel Albumin Human 50 ml @ 50 mls/hr PRN PRN IV 07/13/24 08:20 07/28/24 08:10 50 MLS/HR Albuterol 2.5 mg Q6HR HHN 07/18/24 18:00 08/02/24 18:32 2.5 MG Ipratropium [place] 0.5 mg Q6HR NEB 07/18/24 18:00 08/02/24 18:32 0.5 MG Hydralazine HCl 10 mg Q4HR PRN IV 07/19/24 15:30 Hold 07/22/24 09:41 10 MG Labetalol HCl 10 mg Q2HPRN PRN IV 07/22/24 11:15 Bacitracin 1 applic DAILY TOP 07/24/24 10:00 08/02/24 10:52 1 APPLIC Acetaminophen 650 mg DAILY@2029 PO 07/24/24 20:30 08/02/24 21:17 650 MG Diphenhydramine HCl 25 mg DAILY@2030 IV 07/24/24 20:30 08/02/24 21:17 25 MG Diagnostic Test (Pha) 1 strip Q6HR 07/26/24 18:00 08/02/24 18:00 1 STRIP Insulin Human Regular FOLLOW SLIDING SCALE Q6HR SC 07/26/24 18:00 07/31/24 06:10 2 UNITS Dextrose 50 ml UD IV 07/26/24 15:45 Epoetin Justus-epbx 10,000 unit MWF@2100 SC 07/28/24 21:00 08/02/24 21:16 10,000 UNIT Midazolam HCl 50 ml @ 1 mls/hr Q24H IV 07/27/24 15:15 08/02/24 12:31 15 MLS/HR Fentanyl Citrate 250 ml @ 2.5 mls/hr Q24H IV 07/27/24 15:15 08/02/24 19:29 30 MLS/HR Pantoprazole Sodium 40 mg BID IV 07/28/24 10:00 08/02/24 21:17 40 MG Vancomycin HCl 0 ml @ 0 mls/hr UD IV 07/28/24 19:15 Cancel Hydrocortisone Sodium Succinate 100 mg Q8HR IV 07/29/24 14:00 08/02/24 21:17 100 MG Enteral Nutritional Formula 1,000 ml 30ML/HR GT 08/01/24 06:45 Cancel Enteral Nutritional Formula 1,000 ml 30ML/HR GT 08/01/24 09:15 08/02/24 20:55 1,000 ML Trimethoprim/ Sulfamethoxazole 15 ml/Dextrose 265 ml @ 176.667 mls/hr DAILY@2200 IV 08/01/24 22:00 08/02/24 21:16 176.667 MLS/HR Albumin Human 100 ml @ 100 mls/hr PRN PRN IV 08/02/24 06:45 08/02/24 08:00 100 MLS/HR Metoclopramide HCl 5 mg Q8HR IV 08/02/24 22:00 08/02/24 21:17 5 MG Micafungin Sodium 150 mg/Sodium Chloride 150 ml @ 100 mls/hr DAILY IV 08/03/24 10:00 PHYSICAL EXAM: - GENERAL: Alert and oriented x 3. No acute distress. Well-nourished. - EYES: EOMI. Anicteric. - HENT: Moist mucous membranes. No scleral icterus. No cervical lymphadenopathy. - LUNGS: Clear to auscultation bilaterally. No accessory muscle use. - CARDIOVASCULAR: Regular rate and rhythm. No murmur. No JVD. - ABDOMEN: Soft, non-tender and non-distended. No palpable masses. - EXTREMITIES: No edema. Non-tender.?SKIN: No rashes or lesions. Warm. - NEUROLOGIC: No focal neurological deficits. CN II-XII grossly intact, but not individually tested - PSYCHIATRIC: Cooperative. Appropriate mood and affect laboratory and microbiology Laboratory Tests 08/02/24 03:20 Test 08/02/24 03:20 Range/Units Serum Glucose 80 74-106 mg/dL Problem List/Assessment/Plan Problems(with codes): (1) E coli bacteremia (2) Necrotizing fasciitis of lower leg (3) Elevated liver enzymes (4) End-stage renal disease on hemodialysis (5) Acute kidney failure, unspecified (6) Chronic kidney disease, unspecified (7) Severe anemia Problem List/Assessment/Plan ID Problem List: - Septic shock - Necrotizing fasciitis of right lower extremity - End-stage renal disease on hemodialysis - Kidney cancer status post nephrectomy - Coronary artery disease - Hyperlipidemia - Status post CABG - ESBL Bacteria - Pneumonia Assessment This is a 58 y.o. male with a past medical history of kidney cancer status post nephrectomy, end-stage renal disease on hemodialysis, coronary artery disease, hyperlipidemia, and status post CABG, who presents with chest pain, fever, and right thigh tenderness concerning for necrotizing fasciitis. On admission, the patient had a temperature of 104F, hypotension (BP 78/45 mmHg), lactic acid 3.8 mmol/L, elevated AST (3044 U/L) and ALT (560 U/L), WBC count 37,000/mm, hemoglobin 7.5 g/dL, and platelets 62,000/mm. Physical examination notable for right thigh tenderness and generalized weakness. Initial imaging included CT scan of the right thigh showing subcutaneous edema with no gas in soft tissues and small bilateral knee effusions. Chest CT revealed bronchiovascular crowding; underlying pulmonary vascular condition cannot be excluded. Blood cultures are preliminarily positive for gram-negative rods. Respiratory cultures show gram-positive issa. An anaerobic bottle was positive for gram- negative rods. Laboratory studies reveal persistent elevation of liver enzymes with AST 3009 U/L and ALT 1976 U/L. Lactic acid increased to 15 mmol/L, platelets decreased to 32,000/mm. Peripheral smear shows [place] cells. Potassium is elevated at 6 mEq/L. The patient is intubated and sedated for acute hypoxic respiratory failure and altered mental status. 07/10: Undergoing ultra filtration and whitecount is elevated. Pressures are starting to come down since initiating meropenem and platelets are still low at 57 07/11: has an elevated whitecount of 19.1 , LFTs and renal function continue to worsen. blood cultures show ESBL E Coli . chest xray shows a left small bascular airspace disease . Fibrinogen is 433 appears to be adequate and patient is not having any additional signs of bleed . hemoglobin is stable at 8.4 and can hold off on additional transfusions outside of keeping hemoglobin above 7 and platelets above 50 07/12: whitecount is 28.43 , liver enzymes remain elevated at 2955 ALT and 2723 AST , as [place] [address] 07/24: extubated 2 days ago tolerated cpap on trickle feeds remains somewhat altered leukocytosis rising, restarted on pressors for last 2 days sacral ulcer present, thigh cellulitis resolved, respiratory culture w/ filamentus fungi 06/25: high fevers 06/26: thick mendoza secretions patient reintubated 07/28: white count is 13.6 , repeat blood cultures show young colonies 07/29: white count is 11.2 , respiratory cultures from bronchoscopy shows gram negative rods 07/30: white count is normalized , respiratory culture shows Stenotrophomonas 07/31: appears to be clinically improving , growing Stenotrophomonas on respiratory cultures that are sensitive to Bactrim , tolerating dialysis 2/2: patient appears to be clinically responding to antibiotic therapy with no signs of intolerance to Bactrim 2/3: doppler was done to the left upper extremity and no DVT was found , on BAl culture 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 which are all potential causes of pneumonia in imunocompromised patients and susceptibilities pending Plan: -Start Mycofungen 150 milligrams daily , at this both filamentous fungi organisms are likely to be covered - work with pharmacy to acquire posaconazole when patient is able to tolerate oral therapy - patient should continue antifungal treatment for at least 12 weeks - Continue Bactrim 3 milligrams per kilogram 1x a day after given dialysis - follow up on sensitivity of fungi on sputum culture and adjust antifungal treatment based on results - monitor LFTs daily - keep MAP goal to 65 for patient to maintain blood pressure support - check blood culture to confirm clearance of bacteremia - STOP amphotericin B - continue vancomycin empirically in setting of septic shock - Surgical Consultation: Agree with general surgeon that clinical picture favors hematoma vs cellulitis , no signs of necrotizing infection at this time - Supportive Care: Continue vasopressor support with norepinephrine (Levophed) and epinephrine as needed for septic shock. - Laboratory Monitoring: Recheck laboratory values including CBC, CMP, lactic acid, and coagulation profile. Monitor liver function tests. - Renal Management: Coordinate with nephrology for hemodialysis management. - Isolation Precautions: Standard precautions. Authorized and Performed by: sangeetha melendrez Total critical care time: Approximately 72 minutes Due to a high probability of clinically significant, life threatening deterioration, the patient required my highest level of preparedness to intervene emergently and I personally spent this critical care time directly and personally managing the patient. This critical care time included obtaining a history; examining the patient; pulse oximetry; ordering and review of studies; arranging urgent treatment with development of a management plan; evaluation of patient's response to treatment; frequent reassessment; and, discussions with other providers. This critical care time was performed to assess and manage the high probability of imminent, life-threatening deterioration that could result in multi-organ failure. It was exclusive of separately billable procedures and treating other patients and teaching time. Plan discussed with: Other Dietary Evaluation Review Comments: 1) If GI is accessible consider Nepro 1.8 @ 20 ml/hr with current rate of propofol on board 2) If pt remains NPO >7days of NPO status, provide TPN to meet at least 75% of estimated needs 3) Advance pt diet when medically feasible to a Renal Standard diet modified per SENIOR PRODUCT MANAGER recommendations Expected Outcomes/Goals: 1) Pt to receive nutrition support within 7 days of NPO status 2) Pt diet to advance 3) F/U in 2-3 days SANGEETHA MELENDREZ MD Aug 02, 2024 22:45
[2024-08-03] VITALS (108 sets, daily range): BP systolic 83–149; BP diastolic 25–75; PULSE 71–108; RESP 18–29; TEMP 97.1–98.8; O2SAT 94–100
[2024-08-03 04:05] LABS: Hemoglobin 8.3 g/dL (13.5-17.5)
[2024-08-03 04:08] LABS: Hematocrit 24.2 % (41.0-53.0); Mean Corpuscular Hemoglobin 34.1 pg (28.0-32.0); Mean Corpuscular Hgb Conc. 34.3 g/dL (32.0-36.0); Mean Corpuscular Volume 99.3 fL (80.0-100.0); Platelet Count (auto) 46 10^3/uL (140-450); Red Blood Cells 2.44 10^6/uL (4.5-5.90); White Blood Cell 10.8 10^3/uL (4.4-10.8)
[2024-08-03 04:26] LABS: Albumin 3.5 g/dL (3.2-4.8); Anion Gap 13 (5-15); Calcium 8.8 mg/dL (8.7-10.4); Carbon Dioxide 24 mmol/L (20-31); Chloride 100 mmol/L (98-107); Glucose 85 mg/dL (74-106); Magnesium 2.2 mg/dL (1.6-2.6); Phosphorus 3.9 mg/dL (2.4-5.1); Potassium 4.2 mmol/L (3.5-5.1); Sodium 137 mmol/L (136-145); Total Protein 6.3 g/dL (5.7-8.2)
[2024-08-03 04:32] LABS: Red Cell Distribution Width 21.3 % (11.8-14.3)
[2024-08-03 04:33] LABS: Basophils % (manual) 0 (0.0-2.0); Blast Cells 0; Eosinophils % (manual) 0 (0-7); Myelocytes % 0; Promyelocytes % 0; Reactive Lymphocytes 0
--- NOTE | 2024-08-03 04:33 | DVH ---
CHEST RADIOGRAPH Indication: pna Technique: Single frontal view of the chest was obtained Comparison: XY CHEST PORTABLE on DOS: 08/02/24 FINDINGS: Lines and Tubes: The endotracheal tube terminates 2.9 cm above the quin. Right central venous marcell ter terminates in the right atrium. The enteric tube courses below the left hemidiaphragm and the tip extends outside the field of view. Lungs: Mild bilateral opacities suggesting vascular congestion. Pleura: No effusion. No pneumothorax. Cardiomediastinal contours: Stable. Bones: No acute osseous abnormality. Status post median sternotomy. IMPRESSION: 1. No significant interval change in appearance of the lungs.
[2024-08-03 04:40] LABS: Alanine Aminotransferase 111 U/L (7-40); Alkaline Phosphatase 326 U/L (46-116); Aspartate Aminotransferase 335 U/L (13-40); Bilirubin, Total 11.8 mg/dL (0.2-1.0); Blood Urea Nitrogen 39 mg/dL (9-23)
[2024-08-03 04:43] LABS: BUN/Creatinine Ratio 13.8 (10.0-20.0)
[2024-08-03 06:56] LABS: Anisocytosis Slight; Band Neutrophils % (manual) 3; Lymphocytes % (manual) 8 (10.0-50.0); Metamyelocytes % 1; Monocytes % (manual) 6 (0-12); Platelet Estimate Decreased
[2024-08-03 06:57] LABS: Stomatocytes Few; Target Cell FEW
[2024-08-03 08:56] LABS: Base Excess -1.3 mmol/L (-2.0-3.0)
[2024-08-03] MEDS: MICAFUNGIN SODIUM 150 MG in SODIUM CHL 0.9% 100 ML IV SCH (09:58)
[2024-08-03] MEDS ORDERED: MICAFUNGIN SODIUM IV SCH (10:00)
[2024-08-03] MEDS ORDERED: SODIUM CHL 0.9% IV SCH (10:00)
--- NOTE | 2024-08-03 10:36 | DVHPN2 ---
Progress Note - Dictate Date Seen: Aug 03, 2024 Has the PT tested + for MRSA If YES, has PT been informed?: No Medical Necessity Reason Pt with a Central, PICC or Fol: Yes The following are medically ne: Central Line Subjective Mr. Daniel altered gentleman with a history of hypertension, dyslipidemia, coronary artery disease, kidney cancer status post nephrectomy, kidney failure on hemodialysis, the patient was brought to the [facility]. He was reintubated on 06/26/25 I have seen and examined the patient, I have discussed with his nurse, and his . he is not responsive to strong painful stimuli, he is not on pressor drip but his blood pressure is low this morning No DVT in the upper extremities Fentanyl 300 mcg/hour, Versed 15 mg/hour Blood culture, 07/08/2024: E coli HIV & II Ab, 07/10/24: Negative ABG, 07/09/2024: Metabolic acidosis, 07/10/2024: Metabolic acidosis, WBC/HB/PLT/MCV, 07/19/2024: 13.1/9.6/65/105.9 PT/INR/PTT, 07/11/2024: 35.6/3.63/38.4, 07/08/2024: 17.4/1.73/34.2, 07/28/2024: 17.1/1.7 BUN/CR, 07/09/2024: 59/3.03 07/19/2024: 78/4.54 07/20/2024: 92/5.37 Lactic acid, 07/08/2019 5:3.1, 07/09/2024: 9.6, 07/10/24: 15.5, 07/11/2024: 449, 12.2, 07/29/2024: 43/2.02 HGB A1c, : 3.8 CPK 07/08/2019 5:114, 07/19/2024: 1579 TBI/AST/ALT/AP, 07/08/24, 0.6/244/561/105, 07/09/2024: 1.1/306/563/101, 07/19/2024: 12/212/261/138, 07/28/2024, 8.9/76/23/160. 08/03/2024: 11.8/335/111/326 Hepatitis panel, : Negative TG/HDL/LDL/HDL, 07/10/2024: 364/60/5/<5 Vitamin B12, 07/19/2024: >4000 Folic acid 07/19/2024: 9.12 TSH, 07/10/2024: 0.33 EEG 07/19/2024: inadequate but likely mildly abnormal EEG Chest x-ray, 07/08/2024: Bronchovascular crowding. Underlying mild pulmonary vascular congestion can not be excluded Obscuration of the left hemidiaphragm which may be from overlying cardiac silhouette with underlying pleural effusion /atelectasis / pneumonia not excluded. Chest x-ray, 07/09/2024: 1. Left lower lobe opacity may reflect atelectasis or mild pneumonia. 2. Mild interstitial pulmonary edema. 3. Small left pleural effusion. 4. Lines and tubes as above (Endotracheal tube terminates 1.8 cm above the quin) Chest x-ray, 07/17/2024: Endotracheal tube terminates 4.8 cm from the qiun. Enteric tube is overlying the plane of the stomach Chest x-ray, 07/27/2024: Cardiomegaly with pulmonary congestion. Left basilar consolidation with small effusion Chest X-ray, 08/02/2024: 1. Stable position of the support lines and tubes. 2. Mild bilateral opacities are similar to the prior study which may reflect pulmonary vascular congestion CT head, 07/19/2024: Atrophy. No acute intracranial pathology vital signs Vital Sign Date Time Temp Pulse Resp B/P (MAP) Pulse Ox O2 Delivery O2 Flow Rate FiO2 08/03/24 10:06 96/47 08/03/24 09:32 98 26 95 30 08/03/24 08:00 Mechanical Ventilator+ 08/03/24 04:00 97.4 97.4 Total Intake and Output 08/02/24 08/02/24 08/03/24 15:00 23:00 07:00 Intake Total 620.0 ml 789.334 ml 387 ml Balance 620.0 ml 789.334 ml 387 ml medications Current Medications Medications Dose Ordered Sig/Rey Route Start Time Stop Time Status Last Admin Dose Admin Vancomycin HCl 0 ml @ 0 mls/hr UD IV 07/08/24 17:00 Cancel Sodium Chloride 10 ml Q8HR IV 07/09/24 06:00 08/03/24 05:34 10 ML Vasopressin 20 units/Sodium Chloride 100 ml @ 9 mls/hr Q11H7M IV 07/09/24 13:15 07/29/24 20:25 6 MLS/HR Norepinephrine Bitartrate 32 mg/ Sodium Chloride 250 ml @ 0.938 mls/ hr Q24H IV 07/09/24 15:30 07/29/24 20:00 13.125 MLS/HR Phenylephrine HCl 80 mg/Sodium Chloride 250 ml @ 7.5 mls/hr Q24H IV 07/09/24 15:45 07/30/24 09:00 29.063 MLS/HR Epinephrine HCl 250 ml @ 7.5 mls/hr Q24H IV 07/09/24 17:00 07/26/24 11:28 7.5 MLS/HR Albumin Human 50 ml @ 100 mls/hr PRN PRN IV 07/13/24 08:30 Cancel Albumin Human 50 ml @ 50 mls/hr PRN PRN IV 07/13/24 08:20 07/28/24 08:10 50 MLS/HR Albuterol 2.5 mg Q6HR HHN 07/18/24 18:00 08/03/24 06:25 2.5 MG Ipratropium [place] 0.5 mg Q6HR NEB 07/18/24 18:00 08/03/24 06:25 0.5 MG Hydralazine HCl 10 mg Q4HR PRN IV 07/19/24 15:30 Hold 07/22/24 09:41 10 MG Labetalol HCl 10 mg Q2HPRN PRN IV 07/22/24 11:15 Bacitracin 1 applic DAILY TOP 07/24/24 10:00 08/03/24 09:30 1 APPLIC Acetaminophen 650 mg DAILY@2029 PO 07/24/24 20:30 08/02/24 21:17 650 MG Diphenhydramine HCl 25 mg DAILY@2029 IV 07/24/24 20:30 08/02/24 21:17 25 MG Diagnostic Test (Pha) 1 strip Q6HR 07/26/24 18:00 08/03/24 05:33 1 STRIP Insulin Human Regular FOLLOW SLIDING SCALE Q6HR SC 07/26/24 18:00 07/31/24 06:10 2 UNITS Dextrose 50 ml UD IV 07/26/24 15:45 Epoetin Justus-epbx 10,000 unit MWF@2100 SC 07/28/24 21:00 08/02/24 21:16 10,000 UNIT Midazolam HCl 50 ml @ 1 mls/hr Q24H IV 07/27/24 15:15 08/03/24 09:30 15 MLS/HR Fentanyl Citrate 250 ml @ 2.5 mls/hr Q24H IV 07/27/24 15:15 08/03/24 10:06 30 MLS/HR Pantoprazole Sodium 40 mg BID IV 07/28/24 10:00 08/03/24 09:30 40 MG Vancomycin HCl 0 ml @ 0 mls/hr UD IV 07/28/24 19:15 Cancel Hydrocortisone Sodium Succinate 100 mg Q8HR IV 07/29/24 14:00 08/03/24 05:33 100 MG Enteral Nutritional Formula 1,000 ml 30ML/HR GT 08/01/24 06:45 Cancel Enteral Nutritional Formula 1,000 ml 30ML/HR GT 08/01/24 09:15 08/02/24 20:55 1,000 ML Trimethoprim/ Sulfamethoxazole 15 ml/Dextrose 265 ml @ 176.667 mls/hr DAILY@2200 IV 08/01/24 22:00 08/02/24 21:16 176.667 MLS/HR Albumin Human 100 ml @ 100 mls/hr PRN PRN IV 08/02/24 06:45 08/02/24 08:00 100 MLS/HR Metoclopramide HCl 5 mg Q8HR IV 08/02/24 22:00 08/03/24 05:33 5 MG Micafungin Sodium 150 mg/Sodium Chloride 100 ml @ 100 mls/hr DAILY IV 08/03/24 10:00 08/03/24 09:58 100 MLS/HR objective The patient is well-nourished and well-developed with no distress. The patient is intubated MENTAL STATUS: Subjective CRANIAL NERVES: Pupils are equal, round and nonreactive, small. There are corneal reflexes and doll's eyes phenomenon. No signs of facial weakness. There are gagging or coughing reflexes SENSATION: No responses to pain stimuli. MOTOR: Normal tone in the upper and lower extremity. Normal muscle bulk. No fasciculations. No spontaneous movement. REFLEXES: Deep tendon reflexes are symmetrical. No pathological reflexes. CEREBELLAR/COORDINATION: Deferred GAIT/STATION: deferred. laboratory and microbiology Laboratory Tests 08/03/24 03:15 Test 08/03/24 03:15 Range/Units Serum Glucose 85 74-106 mg/dL Problem List Altered mental status, Metabolic encephalopathy Hypoxic encephalopathy Toxic encephalopathy Hepatic encephalopathy Respiratory failure, reintubated Sepsis/septic shock Pneumonia Cellulitis Metabolic acidosis Coagulopathy secondary to liver failure Elevated liver function test Thrombocytopenia Macrocytic anemia Elevated liver function tests ICU myopathy Assessment/Plan Monitoring Supportive treatment ICU care Venous duplex to the arms MRI brain scan later Stabilize vitals/pressor drip Respiratory support/vent management Oxygen Antibiotics GI prophylaxis/pantoprazole Infectious disease on case Pulmonary on case Cardiology on case Nephrology on case More recommendation per clinical course This medical document was created using an electronic medical record system with [employer] dictation system. Although this document has been carefully reviewed, there may still be some phonetic and typographical errors. These areas are purely typographical due to imperfections of the software programs, and do not reflect any compromise in the patient's medical care Prognosis guarded Dietary Evaluation Review Comments: 1) If GI is accessible consider Nepro 1.8 @ 20 ml/hr with current rate of propofol on board 2) If pt remains NPO >7days of NPO status, provide TPN to meet at least 75% of estimated needs 3) Advance pt diet when medically feasible to a Renal Standard diet modified per HAIR [employer]PARER recommendations Expected Outcomes/Goals: 1) Pt to receive nutrition support within 7 days of NPO status 2) Pt diet to advance 3) F/U in 2-3 days Plan discussed with: Spouse, Other SMUIT SANTAMARIA MD Aug 03, 2024 10:36
--- NOTE | 2024-08-03 11:38 | DVH ---
ULTRASOUND ABDOMEN LIMITED INDICATION: transamnitis TECHNIQUE: Multiple real-time sonographic images of the abdomen were obtained. COMPARISON: US LIVER on DOS: 07/10/24 FINDINGS: The visualized liver parenchyma appears echogenic . The liver measures 14.4 cm. No discrete he patic lesion or intrahepatic biliary ductal dilatation is identified. There is no evidence of gallstones, gallbladder wall thickening or pericholecystic fluid. The common biliary duct is not dilated. The right kidney measures 9.2 cm length. There is a 2.9 cm right midpole renal cyst. No sonographic evidence of nephrolithiasis or hydronephrosis. Pancreas is obscured by bowel gas. IMPRESSION: 1. The liver parenchyma appears echogenic which May relate to fatty infiltration. 2. 0.9 cm right midpole renal cyst. HS:Y
--- NOTE | 2024-08-03 12:00 | DVHPN2 ---
Subjective Intubated and sedated On Versed and fentanyl drips Reviewed: Care Plan, H&P, Labs, Medications Changes from previous H/P or p: Changes General: Per HPI Eyes: No Pain, No Vision change, No Conjunctivae inflammation, No Eyelid inflammation, No Other, No Redness ENT: No Ear pain, No Ear discharge, No Nose pain, No Nose discharge, No Nose congestion, No Mouth pain, No Mouth swelling, No Throat pain, No Throat swelling, No Other Cardiovascular: Chest Pain Respiratory: Cough Gastrointestinal: No Nausea, No Vomiting, No Abdominal Pain, No Diarrhea, No Constipation, No Melena, No Hematochezia, No Other Genitourinary: No Dysuria, No Frequency, No Incontinence, No Hematuria, No Retention, No Other Musculoskeletal: other, leg pain Skin: Other Objective Vitals Vital Signs Date Time Temp Pulse Resp B/P (MAP) Pulse Ox O2 Delivery O2 Flow Rate FiO2 08/03/24 10:48 96 26 98/48 (65) 95 30 08/03/24 10:00 Mechanical Ventilator+ 08/03/24 08:00 98.4 98.4 Intake/Output Intake and Output 08/03/24 06:59 Intake Total 1793.834 ml Balance 1793.834 ml IV Total 1645.834 ml Tube Feeding 148 ml # Bowel Movements 1 General Appearance: Other (Intubated and sedated) Lungs: Other (Bilateral rhonchi) Cardiovascular: Regular rate, Normal S1, Normal S2 Abdomen: Normal bowel sounds, Soft, No tenderness Extremities: Other (2+ edema all upper and lower extremities more pronounced on the left arm) Medications Current Medications Medications Dose Ordered Sig/Rey Route Start Time Stop Time Status Last Admin Dose Admin Vancomycin HCl 0 ml @ 0 mls/hr UD IV 07/08/24 17:00 Cancel Sodium Chloride 10 ml Q8HR IV 07/09/24 06:00 08/03/24 05:34 10 ML Vasopressin 20 units/Sodium Chloride 100 ml @ 9 mls/hr Q11H7M IV 07/09/24 13:15 07/29/24 20:25 6 MLS/HR Norepinephrine Bitartrate 32 mg/ Sodium Chloride 250 ml @ 0.938 mls/ hr Q24H IV 07/09/24 15:30 07/29/24 20:00 13.125 MLS/HR Phenylephrine HCl 80 mg/Sodium Chloride 250 ml @ 7.5 mls/hr Q24H IV 07/09/24 15:45 07/30/24 09:00 29.063 MLS/HR Epinephrine HCl 250 ml @ 7.5 mls/hr Q24H IV 07/09/24 17:00 07/26/24 11:28 7.5 MLS/HR Albumin Human 50 ml @ 100 mls/hr PRN PRN IV 07/13/24 08:30 Cancel Albumin Human 50 ml @ 50 mls/hr PRN PRN IV 07/13/24 08:20 07/28/24 08:10 50 MLS/HR Albuterol 2.5 mg Q6HR HHN 07/18/24 18:00 08/03/24 06:25 2.5 MG Ipratropium [place] 0.5 mg Q6HR NEB 07/18/24 18:00 08/03/24 06:25 0.5 MG Hydralazine HCl 10 mg Q4HR PRN IV 07/19/24 15:30 Hold 07/22/24 09:41 10 MG Labetalol HCl 10 mg Q2HPRN PRN IV 07/22/24 11:15 Bacitracin 1 applic DAILY TOP 07/24/24 10:00 08/03/24 09:30 1 APPLIC Acetaminophen 650 mg DAILY@2029 PO 07/24/24 20:30 08/02/24 21:17 650 MG Diphenhydramine HCl 25 mg DAILY@2030 IV 07/24/24 20:30 08/02/24 21:17 25 MG Diagnostic Test (Pha) 1 strip Q6HR 07/26/24 18:00 08/03/24 11:19 1 STRIP Insulin Human Regular FOLLOW SLIDING SCALE Q6HR SC 07/26/24 18:00 07/31/24 06:10 2 UNITS Dextrose 50 ml UD IV 07/26/24 15:45 Epoetin [place]-epbx 10,000 unit MWF@2100 SC 07/28/24 21:00 08/02/24 21:16 10,000 UNIT Midazolam HCl 50 ml @ 1 mls/hr Q24H IV 07/27/24 15:15 08/03/24 09:30 15 MLS/HR Fentanyl Citrate 250 ml @ 2.5 mls/hr Q24H IV 07/27/24 15:15 08/03/24 10:06 30 MLS/HR Pantoprazole Sodium 40 mg BID IV 07/28/24 10:00 08/03/24 09:30 40 MG Vancomycin HCl 0 ml @ 0 mls/hr UD IV 07/28/24 19:15 Cancel Hydrocortisone Sodium Succinate 100 mg Q8HR IV 07/29/24 14:00 08/03/24 05:33 100 MG Enteral Nutritional Formula 1,000 ml 30ML/HR GT 08/01/24 06:45 Cancel Enteral Nutritional Formula 1,000 ml 30ML/HR GT 08/01/24 09:15 08/02/24 20:55 1,000 ML Trimethoprim/ Sulfamethoxazole 15 ml/Dextrose 265 ml @ 176.667 mls/hr DAILY@2200 IV 08/01/24 22:00 08/02/24 21:16 176.667 MLS/HR Albumin Human 100 ml @ 100 mls/hr PRN PRN IV 08/02/24 06:45 08/02/24 08:00 100 MLS/HR Metoclopramide HCl 5 mg Q8HR IV 08/02/24 22:00 08/03/24 05:33 5 MG Micafungin Sodium 150 mg/Sodium Chloride 100 ml @ 100 mls/hr DAILY IV 08/03/24 10:00 08/03/24 09:58 100 MLS/HR Laboratory Results Laboratory Tests 08/03/24 03:15 Chemistry Test 08/03/24 03:15 Albumin 3.5 g/dL (3.2-4.8) Calcium Level 8.8 mg/dL (8.7-10.4) Magnesium Level 2.2 mg/dL (1.6-2.6) Phosphorus Level 3.9 mg/dL (2.4-5.1) Total Protein 6.3 g/dL (5.7-8.2) LFT Test 08/03/24 03:15 Alanine Aminotransferase (ALT) 111 U/L (7-40) H Alkaline Phosphatase 326 U/L (46-116) H Aspartate Amino Transferase (AST) 335 U/L (13-40) H Total Bilirubin 11.8 mg/dL (0.2-1.0) H Blood Gas Results Test 08/02/24 21:28 08/03/24 08:49 Arterial Blood pH 7.421 (7.350-7.450) 7.411 (7.350-7.450) FiO2 % 30.0 30.0 Microbiology Microbiology Date/Time Source Procedure Growth Status 07/27/24 16:00 Sputum Gram Stain - Final Resulted 07/27/24 16:00 Respiratory Culture - Preliminary Stenotrophomonas maltophilia Resulted 07/26/24 14:50 Blood Blood Culture - Final NO GROWTH AFTER 5 DAYS OF INCUBATION. Complete 07/09/24 19:55 Trachea Gram Stain - Final Complete 07/09/24 19:55 Trachea Respiratory Culture - Final Complete Assessment/Plan Assessment/Plan Acute hypoxic respiratory failure End-stage renal disease on hemodialysis Dilated cardiomyopathy Acute on chronic systolic and diastolic heart failure with ejection fraction 25% Status post severe sepsis with septic shock due to bacteremia and E coli ESBL Morbid obesity Thrombocytopenia Sepsis with septic shock Hypoalbuminemia CAD Mixed hyperlipidemia DM2 PLAN: Sepsis: Amphotericin IV Bactrim IV Pneumonia with Stenotrophomonas maltophilia Bacteremia with E. coli ESBL HD per nephrology LUE edema: Rule out DVT, doppler US Off pressors Taper sedation as tolerated Will meet with family for plan of care 08/03/24: Discussed with family at the bedside Explained to the family the poor prognosis DNR Family would like to go ahead with terminal weaning We will taper down the sedation Discontinue Versed 1st and then fentanyl and then we will do a terminal weaning once the family is ready in 1-2 days Plan discussed with: Spouse, Daughter My Orders Orders - DG AQUINO MD Procedure Category Date Status Time Communication Order ORDERS 08/02/24 Transmitted 12:18 Bi Lat Upper Dvt US 08/02/24 Resulted 12:18 Pt Request For Service PT 08/02/24 Logged 12:56 Date of Service: Aug 03, 2024 Billing Provider: DG AQUINO MD Common Visit Codes: NOT BILLABLE DG AQUINO MD Aug 03, 2024 12:00
--- NOTE | 2024-08-03 12:45 | DVHPNRES ---
Progress Note Date Seen: Aug 03, 2024 Resident Creating Document: SULTANA GARCIA RESIDENT Has the PT tested + for MRSA If YES, has PT been informed?: No Medical Necessity Reason Pt with a Central, PICC or Fol: Yes The following are medically ne: Central Line Subjective Review of Systems Patient seen and examined in the ICU. Hemoglobin is stable at 8.3. Up trending LFTs, bilirubin trending to 11.8. Repeat ultrasound lower shows fatty infiltration. Objective vital signs Vital Sign Date Time Temp Pulse Resp B/P (MAP) Pulse Ox O2 Delivery O2 Flow Rate FiO2 08/03/24 12:33 91 24 97/47 (64) 95 30 08/03/24 10:00 Mechanical Ventilator+ 08/03/24 08:00 98.4 98.4 Total Intake and Output 08/02/24 08/02/24 08/03/24 15:00 23:00 07:00 Intake Total 620.0 ml 789.334 ml 387 ml Balance 620.0 ml 789.334 ml 387 ml medications Current Medications Medications Dose Ordered Sig/Rey Route Start Time Stop Time Status Last Admin Dose Admin Vancomycin HCl 0 ml @ 0 mls/hr UD IV 07/08/24 17:00 Cancel Sodium Chloride 10 ml Q8HR IV 07/09/24 06:00 08/03/24 05:34 10 ML Vasopressin 20 units/Sodium Chloride 100 ml @ 9 mls/hr Q11H7M IV 07/09/24 13:15 07/29/24 20:25 6 MLS/HR Norepinephrine Bitartrate 32 mg/ Sodium Chloride 250 ml @ 0.938 mls/ hr Q24H IV 07/09/24 15:30 07/29/24 20:00 13.125 MLS/HR Phenylephrine HCl 80 mg/Sodium Chloride 250 ml @ 7.5 mls/hr Q24H IV 07/09/24 15:45 07/30/24 09:00 29.063 MLS/HR Epinephrine HCl 250 ml @ 7.5 mls/hr Q24H IV 07/09/24 17:00 07/26/24 11:28 7.5 MLS/HR Albumin Human 50 ml @ 100 mls/hr PRN PRN IV 07/13/24 08:30 Cancel Albumin Human 50 ml @ 50 mls/hr PRN PRN IV 07/13/24 08:20 07/28/24 08:10 50 MLS/HR Albuterol 2.5 mg Q6HR HHN 07/18/24 18:00 08/03/24 12:33 2.5 MG Ipratropium [place] 0.5 mg Q6HR NEB 07/18/24 18:00 08/03/24 12:33 0.5 MG Hydralazine HCl 10 mg Q4HR PRN IV 07/19/24 15:30 Hold 07/22/24 09:41 10 MG Labetalol HCl 10 mg Q2HPRN PRN IV 07/22/24 11:15 Bacitracin 1 applic DAILY TOP 07/24/24 10:00 08/03/24 09:30 1 APPLIC Acetaminophen 650 mg DAILY@2029 PO 07/24/24 20:30 08/02/24 21:17 650 MG Diphenhydramine HCl 25 mg DAILY@2029 IV 07/24/24 20:30 08/02/24 21:17 25 MG Diagnostic Test (Pha) 1 strip Q6HR 07/26/24 18:00 08/03/24 11:19 1 STRIP Insulin Human Regular FOLLOW SLIDING SCALE Q6HR SC 07/26/24 18:00 07/31/24 06:10 2 UNITS Dextrose 50 ml UD IV 07/26/24 15:45 Epoetin [place]-epbx 10,000 unit MWF@2100 SC 07/28/24 21:00 08/02/24 21:16 10,000 UNIT Midazolam HCl 50 ml @ 1 mls/hr Q24H IV 07/27/24 15:15 08/03/24 09:30 15 MLS/HR Fentanyl Citrate 250 ml @ 2.5 mls/hr Q24H IV 07/27/24 15:15 08/03/24 10:06 30 MLS/HR Pantoprazole Sodium 40 mg BID IV 07/28/24 10:00 08/03/24 09:30 40 MG Vancomycin HCl 0 ml @ 0 mls/hr UD IV 07/28/24 19:15 Cancel Hydrocortisone Sodium Succinate 100 mg Q8HR IV 07/29/24 14:00 08/03/24 05:33 100 MG Enteral Nutritional Formula 1,000 ml 30ML/HR GT 08/01/24 06:45 Cancel Enteral Nutritional Formula 1,000 ml 30ML/HR GT 08/01/24 09:15 08/02/24 20:55 1,000 ML Trimethoprim/ Sulfamethoxazole 15 ml/Dextrose 265 ml @ 176.667 mls/hr DAILY@2200 IV 08/01/24 22:00 08/02/24 21:16 176.667 MLS/HR Albumin Human 100 ml @ 100 mls/hr PRN PRN IV 08/02/24 06:45 08/02/24 08:00 100 MLS/HR Metoclopramide HCl 5 mg Q8HR IV 08/02/24 22:00 08/03/24 05:33 5 MG Micafungin Sodium 150 mg/Sodium Chloride 100 ml @ 100 mls/hr DAILY IV 08/03/24 10:00 08/03/24 09:58 100 MLS/HR Examination GENERAL: Intubated on ventilator. obese. NG output bilious, bleeding from the mouth LUNGS: Decreased breath sounds. CARDIOVASCULAR: Heart sounds are good. ABDOMEN: Soft. Nontender, normoactive bowel sounds. Resolving Left lower quadrant maculopapular rash EXT: Upper and lower extremity edema laboratory and microbiology Laboratory Tests 08/03/24 03:15 Test 08/03/24 03:15 Range/Units Serum Glucose 85 74-106 mg/dL Microbiology Date/Time Source Procedure Growth Status 07/27/24 16:00 Sputum Gram Stain - Final Resulted 07/27/24 16:00 Respiratory Culture - Preliminary Stenotrophomonas maltophilia Resulted 07/26/24 14:50 Blood Blood Culture - Final NO GROWTH AFTER 5 DAYS OF INCUBATION. Complete 07/09/24 19:55 Trachea Gram Stain - Final Complete 07/09/24 19:55 Trachea Respiratory Culture - Final Complete Labs and/or images reviewed: Labs reviewed by me, Image(s) reviewed by me Problem List/Assessment/Plan Problem List/Assessment/Plan Active GI bleeding requiring transfusion - unspecified cause Transaminitis secondary to Bactrim versus hemosiderosis Acute respiratory failure-> reintubated uremic acidosis / lactic acidosis septic shock with E Coli bacteremia Pneumonia with stenotrophomonas Coronary artery disease status post CABG in 2021 fungal infection lower extremity wound Macrocytic anemia Anemia of chronic disease hypoglycemia hyperkalemia Severe thrombocytopenia severe fluid overload Plan: Given that the patient's hemoglobin is stable and no episodes of hematemesis/melena/hematochezia noted, patient's GI bleeding is likely resolved. Recommend continuing with conservative management for now. Patient is unstable for any GI procedure currently. Recommend Discontinue Bactrim given the transaminitis Patient may have underlying hemosiderosis given the normal iron and an increased% saturation Continue IV PPI b.i.d. 40 mg Continue Reglan 5 mg q.8h hourly 07/29-1 unit of packed RBC and 1 unit of platelet ordered Maintain hemoglobin greater than 7 G per dL, transfuse as necessary HD treatment Antibiotics per primary team Enteral feeding as tolerated clinically unstable, prognosis is poor Case discussed with Dr. [place] Plan discussed with: Patient My Orders My Orders Orders - SULTANA GARCIA Procedure Category Date Status Time Metoclopramide PHA 08/02/24 In Process Injection (Reglan 22:00 LIVER US 08/03/24 Resulted 09:58 Dietary Evaluation Review Comments: 1) If GI is accessible consider Nepro 1.8 @ 20 ml/hr with current rate of propofol on board 2) If pt remains NPO >7days of NPO status, provide TPN to meet at least 75% of estimated needs 3) Advance pt diet when medically feasible to a Renal Standard diet modified per [employer] recommendations Expected Outcomes/Goals: 1) Pt to receive nutrition support within 7 days of NPO status 2) Pt diet to advance 3) F/U in 2-3 days SULTANA GARCIA Aug 03, 2024 12:45
--- NOTE | 2024-08-03 16:43 | DVHPN2 ---
Progress Note Date Seen: Aug 03, 2024 Has the PT tested + for MRSA If YES, has PT been informed?: No Medical Necessity Reason Pt with a Central, PICC or Fol: Yes The following are medically ne: Central Line Subjective Patient reports: Other Review of Systems: Deferred Objective vital signs Vital Sign Date Time Temp Pulse Resp B/P (MAP) Pulse Ox O2 Delivery O2 Flow Rate FiO2 08/03/24 16:32 95 26 98/48 (65) 96 30 08/03/24 16:00 Mechanical Ventilator+ 08/03/24 15:30 98.3 98.3 Total Intake and Output 08/02/24 08/02/24 08/03/24 15:00 23:00 07:00 Intake Total 620.0 ml 789.334 ml 387 ml Balance 620.0 ml 789.334 ml 387 ml medications Current Medications Medications Dose Ordered Sig/Rey Route Start Time Stop Time Status Last Admin Dose Admin Vancomycin HCl 0 ml @ 0 mls/hr UD IV 07/08/24 17:00 Cancel Sodium Chloride 10 ml Q8HR IV 07/09/24 06:00 08/03/24 14:51 10 ML Vasopressin 20 units/Sodium Chloride 100 ml @ 9 mls/hr Q11H7M IV 07/09/24 13:15 07/29/24 20:25 6 MLS/HR Norepinephrine Bitartrate 32 mg/ Sodium Chloride 250 ml @ 0.938 mls/ hr Q24H IV 07/09/24 15:30 07/29/24 20:00 13.125 MLS/HR Phenylephrine HCl 80 mg/Sodium Chloride 250 ml @ 7.5 mls/hr Q24H IV 07/09/24 15:45 07/30/24 09:00 29.063 MLS/HR Epinephrine HCl 250 ml @ 7.5 mls/hr Q24H IV 07/09/24 17:00 07/26/24 11:28 7.5 MLS/HR Albumin Human 50 ml @ 100 mls/hr PRN PRN IV 07/13/24 08:30 Cancel Albumin Human 50 ml @ 50 mls/hr PRN PRN IV 07/13/24 08:20 07/28/24 08:10 50 MLS/HR Albuterol 2.5 mg Q6HR HHN 07/18/24 18:00 08/03/24 12:33 2.5 MG Ipratropium [place] 0.5 mg Q6HR NEB 07/18/24 18:00 08/03/24 12:33 0.5 MG Hydralazine HCl 10 mg Q4HR PRN IV 07/19/24 15:30 Hold 07/22/24 09:41 10 MG Labetalol HCl 10 mg Q2HPRN PRN IV 07/22/24 11:15 Bacitracin 1 applic DAILY TOP 07/24/24 10:00 08/03/24 09:30 1 APPLIC Acetaminophen 650 mg DAILY@2029 PO 07/24/24 20:30 08/02/24 21:17 650 MG Diphenhydramine HCl 25 mg DAILY@2029 IV 07/24/24 20:30 08/02/24 21:17 25 MG Diagnostic Test (Pha) 1 strip Q6HR 07/26/24 18:00 08/03/24 11:19 1 STRIP Insulin Human Regular FOLLOW SLIDING SCALE Q6HR SC 07/26/24 18:00 07/31/24 06:10 2 UNITS Dextrose 50 ml UD IV 07/26/24 15:45 Epoetin Justus-epbx 10,000 unit MWF@2100 SC 07/28/24 21:00 08/02/24 21:16 10,000 UNIT Midazolam HCl 50 ml @ 1 mls/hr Q24H IV 07/27/24 15:15 08/03/24 13:06 13 MLS/HR Fentanyl Citrate 250 ml @ 2.5 mls/hr Q24H IV 07/27/24 15:15 08/03/24 10:06 30 MLS/HR Pantoprazole Sodium 40 mg BID IV 07/28/24 10:00 08/03/24 09:30 40 MG Vancomycin HCl 0 ml @ 0 mls/hr UD IV 07/28/24 19:15 Cancel Hydrocortisone Sodium Succinate 100 mg Q8HR IV 07/29/24 14:00 08/03/24 14:51 100 MG Enteral Nutritional Formula 1,000 ml 30ML/HR GT 08/01/24 06:45 Cancel Enteral Nutritional Formula 1,000 ml 30ML/HR GT 08/01/24 09:15 08/02/24 20:55 1,000 ML Trimethoprim/ Sulfamethoxazole 15 ml/Dextrose 265 ml @ 176.667 mls/hr DAILY@2200 IV 08/01/24 22:00 08/02/24 21:16 176.667 MLS/HR Albumin Human 100 ml @ 100 mls/hr PRN PRN IV 08/02/24 06:45 08/02/24 08:00 100 MLS/HR Metoclopramide HCl 5 mg Q8HR IV 08/02/24 22:00 08/03/24 14:51 5 MG Micafungin Sodium 150 mg/Sodium Chloride 100 ml @ 100 mls/hr DAILY IV 08/03/24 10:00 08/03/24 09:58 100 MLS/HR Ursodiol 300 mg BID PO 08/03/24 22:00 Examination: GENERAL:Abnormal, LUNGS:Abnormal, MSK:Abnormal, NEURO:Abnormal laboratory and microbiology Laboratory Tests 08/03/24 03:15 Test 08/03/24 03:15 Range/Units Serum Glucose 85 74-106 mg/dL Microbiology Date/Time Source Procedure Growth Status 07/27/24 16:00 Sputum Gram Stain - Final Resulted 07/27/24 16:00 Respiratory Culture - Preliminary Stenotrophomonas maltophilia Resulted 07/26/24 14:50 Blood Blood Culture - Final NO GROWTH AFTER 5 DAYS OF INCUBATION. Complete 07/09/24 19:55 Trachea Gram Stain - Final Complete 07/09/24 19:55 Trachea Respiratory Culture - Final Complete Problem List/Assessment/Plan Problem List/Assessment/Plan ESRD on HD hyperkalemia septic shock with gram-negative anabella bacteremia lower extremity wound anemia hypoglycemia recs Hemodialysis Friday Rest of the management per primary Plan discussed with: Other Dietary Evaluation Review Comments: 1) If GI is accessible consider Nepro 1.8 @ 20 ml/hr with current rate of propofol on board 2) If pt remains NPO >7days of NPO status, provide TPN to meet at least 75% of estimated needs 3) Advance pt diet when medically feasible to a Renal Standard diet modified per AUTOMOTIVE MECHANICAL ENGINEER recommendations Expected Outcomes/Goals: 1) Pt to receive nutrition support within 7 days of NPO status 2) Pt diet to advance 3) F/U in 2-3 days FAYE KAUR MD Aug 03, 2024 16:43
--- NOTE | 2024-08-03 18:26 | DVHPN2 ---
Progress Note - Dictate Date Seen: Aug 03, 2024 Has the PT tested + for MRSA If YES, has PT been informed?: No Medical Necessity Reason Pt with a Central, PICC or Fol: Yes The following are medically ne: Central Line Subjective Patient was seen and evaluated in follow up in the ICU. Patient is intubated and sedated on ventilator. 30% FiO2. BUE ultrasound is negative for DVT. HGB 8.3, HCT 24.2, BUN 39, [employer] 2.83, AST 335, ALT 111, Alk phos 326. Liver ultrasound shows liver parenchyma appears echogenic which may relate to fatty infiltration. Chest x-ray: mild bilateral opacities suggesting vascular congestion. vital signs Vital Sign Date Time Temp Pulse Resp B/P (MAP) Pulse Ox O2 Delivery O2 Flow Rate FiO2 08/03/24 16:51 101/49 08/03/24 16:45 95 26 96 08/03/24 16:32 30 08/03/24 16:00 Mechanical Ventilator+ 08/03/24 15:30 98.3 98.3 Total Intake and Output 08/02/24 08/02/24 08/03/24 15:00 23:00 07:00 Intake Total 620.0 ml 789.334 ml 387 ml Balance 620.0 ml 789.334 ml 387 ml medications Current Medications Medications Dose Ordered Sig/Rey Route Start Time Stop Time Status Last Admin Dose Admin Vancomycin HCl 0 ml @ 0 mls/hr UD IV 07/08/24 17:00 Cancel Sodium Chloride 10 ml Q8HR IV 07/09/24 06:00 08/03/24 14:51 10 ML Vasopressin 20 units/Sodium Chloride 100 ml @ 9 mls/hr Q11H7M IV 07/09/24 13:15 07/29/24 20:25 6 MLS/HR Norepinephrine Bitartrate 32 mg/ Sodium Chloride 250 ml @ 0.938 mls/ hr Q24H IV 07/09/24 15:30 07/29/24 20:00 13.125 MLS/HR Phenylephrine HCl 80 mg/Sodium Chloride 250 ml @ 7.5 mls/hr Q24H IV 07/09/24 15:45 07/30/24 09:00 29.063 MLS/HR Epinephrine HCl 250 ml @ 7.5 mls/hr Q24H IV 07/09/24 17:00 07/26/24 11:28 7.5 MLS/HR Albumin Human 50 ml @ 100 mls/hr PRN PRN IV 07/13/24 08:30 Cancel Albumin Human 50 ml @ 50 mls/hr PRN PRN IV 07/13/24 08:20 07/28/24 08:10 50 MLS/HR Albuterol 2.5 mg Q6HR HHN 07/18/24 18:00 08/03/24 12:33 2.5 MG Ipratropium [place] 0.5 mg Q6HR NEB 07/18/24 18:00 08/03/24 12:33 0.5 MG Hydralazine HCl 10 mg Q4HR PRN IV 07/19/24 15:30 Hold 07/22/24 09:41 10 MG Labetalol HCl 10 mg Q2HPRN PRN IV 07/22/24 11:15 Bacitracin 1 applic DAILY TOP 07/24/24 10:00 08/03/24 09:30 1 APPLIC Acetaminophen 650 mg DAILY@2029 PO 07/24/24 20:30 08/02/24 21:17 650 MG Diphenhydramine HCl 25 mg DAILY@2029 IV 07/24/24 20:30 08/02/24 21:17 25 MG Diagnostic Test (Pha) 1 strip Q6HR 07/26/24 18:00 08/03/24 11:19 1 STRIP Insulin Human Regular FOLLOW SLIDING SCALE Q6HR SC 07/26/24 18:00 07/31/24 06:10 2 UNITS Dextrose 50 ml UD IV 07/26/24 15:45 Epoetin Justus-epbx 10,000 unit MWF@2100 [place] 07/28/24 21:00 08/02/24 21:16 10,000 UNIT Midazolam HCl 50 ml @ 1 mls/hr Q24H IV 07/27/24 15:15 08/03/24 16:51 14 MLS/HR Fentanyl Citrate 250 ml @ 2.5 mls/hr Q24H IV 07/27/24 15:15 08/03/24 10:06 30 MLS/HR Pantoprazole Sodium 40 mg BID IV 07/28/24 10:00 08/03/24 09:30 40 MG Vancomycin HCl 0 ml @ 0 mls/hr UD IV 07/28/24 19:15 Cancel Hydrocortisone Sodium Succinate 100 mg Q8HR IV 07/29/24 14:00 08/03/24 14:51 100 MG Enteral Nutritional Formula 1,000 ml 30ML/HR GT 08/01/24 06:45 Cancel Enteral Nutritional Formula 1,000 ml 30ML/HR GT 08/01/24 09:15 08/02/24 20:55 1,000 ML Trimethoprim/ Sulfamethoxazole 15 ml/Dextrose 265 ml @ 176.667 mls/hr DAILY@2200 IV 08/01/24 22:00 08/02/24 21:16 176.667 MLS/HR Albumin Human 100 ml @ 100 mls/hr PRN PRN IV 08/02/24 06:45 08/02/24 08:00 100 MLS/HR Metoclopramide HCl 5 mg Q8HR IV 08/02/24 22:00 08/03/24 14:51 5 MG Micafungin Sodium 150 mg/Sodium Chloride 100 ml @ 100 mls/hr DAILY IV 08/03/24 10:00 08/03/24 09:58 100 MLS/HR Ursodiol 300 mg BID PO 08/03/24 22:00 objective GENERAL: Intubated on ventilator. Morbidly obese. LUNGS: Decreased breath sounds. CARDIOVASCULAR: Heart sounds are good. ABDOMEN: Soft. EXT: BLE edema. laboratory and microbiology Laboratory Tests 08/03/24 03:15 Test 08/03/24 03:15 Range/Units Serum Glucose 85 74-106 mg/dL Problem List Hypotension secondary to septic shock. Coronary artery disease status post CABG in 2021. History of hypertension. Hyperlipidemia. Hyperkalemia. Acute anemia. Thrombocytopenia. Transaminitis. End-stage renal disease on hemodialysis. Renal cell carcinoma status post left nephrectomy. COPD. Asthma. Morbid obesity. Dilated cardiomyopathy. Metabolic encephalopathy. Assessment/Plan Continued all current supportive medical care. GI prophylactics. IV antibiotics as ordered. Vasopressors for hemodynamic support. Additional plan as per the hospital course. Critical care time of 45 minutes provided to include time spent evaluation of patient at bedside, when appropriate patient/family education for diagnosis, treatment plan, review of pertinent medical information and discussion of care with specialty providers and PCP. Mechanical ventilator parameters, treatment and adjustments have personally been reviewed by me and treatment plan by change control coordinator has also been reviewed. Dietary Evaluation Review Comments: 1) If GI is accessible consider Nepro 1.8 @ 20 ml/hr with current rate of propofol on board 2) If pt remains NPO >7days of NPO status, provide TPN to meet at least 75% of estimated needs 3) Advance pt diet when medically feasible to a Renal Standard diet modified per AIR CARRIER OPERATIONS INSPECTOR recommendations Expected Outcomes/Goals: 1) Pt to receive nutrition support within 7 days of NPO status 2) Pt diet to advance 3) F/U in 2-3 days Plan discussed with: Other FRIDA SIMMONS MD Aug 03, 2024 18:26
[2024-08-03] MEDS: URSODIOL 300 MG CAP PO SCH (21:03)
--- NOTE | 2024-08-03 22:58 | DVHPN2 ---
Progress Note - Dictate Date Seen: Aug 03, 2024 Has the PT tested + for MRSA If YES, has PT been informed?: No Medical Necessity Reason Pt with a Central, PICC or Fol: Yes The following are medically ne: Central Line Subjective Patient seen and examined at bedside. Sedated, intubated on mechanical ventilator. Overnight events reviewed. vital signs Vital Sign Date Time Temp Pulse Resp B/P (MAP) Pulse Ox O2 Delivery O2 Flow Rate FiO2 08/03/24 22:05 92 24 109/55 (73) 95 30 08/03/24 18:00 Mechanical Ventilator+ 08/03/24 15:30 98.3 98.3 Total Intake and Output 08/02/24 08/02/24 08/03/24 15:00 23:00 07:00 Intake Total 620.0 ml 789.334 ml 387 ml Balance 620.0 ml 789.334 ml 387 ml medications Current Medications Medications Dose Ordered Sig/Rey Route Start Time Stop Time Status Last Admin Dose Admin Vancomycin HCl 0 ml @ 0 mls/hr UD IV 07/08/24 17:00 Cancel Sodium Chloride 10 ml Q8HR IV 07/09/24 06:00 08/03/24 21:02 10 ML Vasopressin 20 units/Sodium Chloride 100 ml @ 9 mls/hr Q11H7M IV 07/09/24 13:15 07/29/24 20:25 6 MLS/HR Norepinephrine Bitartrate 32 mg/ Sodium Chloride 250 ml @ 0.938 mls/ hr Q24H IV 07/09/24 15:30 07/29/24 20:00 13.125 MLS/HR Phenylephrine HCl 80 mg/Sodium Chloride 250 ml @ 7.5 mls/hr Q24H IV 07/09/24 15:45 07/30/24 09:00 29.063 MLS/HR Epinephrine HCl 250 ml @ 7.5 mls/hr Q24H IV 07/09/24 17:00 07/26/24 11:28 7.5 MLS/HR Albumin Human 50 ml @ 100 mls/hr PRN PRN IV 07/13/24 08:30 Cancel Albumin Human 50 ml @ 50 mls/hr PRN PRN IV 07/13/24 08:20 07/28/24 08:10 50 MLS/HR Albuterol 2.5 mg Q6HR HHN 07/18/24 18:00 08/03/24 18:41 2.5 MG Ipratropium [place] 0.5 mg Q6HR NEB 07/18/24 18:00 08/03/24 18:41 0.5 MG Hydralazine HCl 10 mg Q4HR PRN IV 07/19/24 15:30 Hold 07/22/24 09:41 10 MG Labetalol HCl 10 mg Q2HPRN PRN IV 07/22/24 11:15 Bacitracin 1 applic DAILY TOP 07/24/24 10:00 08/03/24 09:30 1 APPLIC Acetaminophen 650 mg DAILY@2029 PO 07/24/24 20:30 08/03/24 21:01 650 MG Diphenhydramine HCl 25 mg DAILY@2029 IV 07/24/24 20:30 08/03/24 21:01 25 MG Diagnostic Test (Pha) 1 strip Q6HR 07/26/24 18:00 08/03/24 17:42 1 STRIP Insulin Human Regular FOLLOW SLIDING SCALE Q6HR SC 07/26/24 18:00 07/31/24 06:10 2 UNITS Dextrose 50 ml UD IV 07/26/24 15:45 Epoetin Justus-epbx 10,000 unit MWF@2100 SC 07/28/24 21:00 08/02/24 21:16 10,000 UNIT Midazolam HCl 50 ml @ 1 mls/hr Q24H IV 07/27/24 15:15 08/03/24 20:23 14 MLS/HR Fentanyl Citrate 250 ml @ 2.5 mls/hr Q24H IV 07/27/24 15:15 08/03/24 18:07 30 MLS/HR Pantoprazole Sodium 40 mg BID IV 07/28/24 10:00 08/03/24 21:02 40 MG Vancomycin HCl 0 ml @ 0 mls/hr UD IV 07/28/24 19:15 Cancel Hydrocortisone Sodium Succinate 100 mg Q8HR IV 07/29/24 14:00 08/03/24 21:02 100 MG Enteral Nutritional Formula 1,000 ml 30ML/HR GT 08/01/24 06:45 Cancel Enteral Nutritional Formula 1,000 ml 30ML/HR GT 08/01/24 09:15 08/03/24 20:40 1,000 ML Trimethoprim/ Sulfamethoxazole 15 ml/Dextrose 265 ml @ 176.667 mls/hr DAILY@2200 IV 08/01/24 22:00 08/03/24 21:20 176.667 MLS/HR Albumin Human 100 ml @ 100 mls/hr PRN PRN IV 08/02/24 06:45 08/02/24 08:00 100 MLS/HR Metoclopramide HCl 5 mg Q8HR IV 08/02/24 22:00 08/03/24 21:02 5 MG Micafungin Sodium 150 mg/Sodium Chloride 100 ml @ 100 mls/hr DAILY IV 08/03/24 10:00 08/03/24 09:58 100 MLS/HR Ursodiol 300 mg BID PO 08/03/24 22:00 08/03/24 21:03 300 MG objective Gen.: Patient lying in bed in medical ICU. Sedated, intubated on mechanical ventilator. Head: Normocephalic, atraumatic. Eyes: PERRLA. Ears: Normal external anatomy. Throat: Endotracheal tube and orogastric tube in place. Neck: Supple, trachea midline. Chest: Transmitted breath sounds bilaterally. Decreased air entry bilaterally. No wheezing. Bibasilar crackles. Cardiovascular: Positive S1, positive S2. Regular rate and rhythm. Abdomen: Positive bowel sounds in all 4 quadrants. Soft, nontender, nondistended. : [place] in place. Normal external genitalia. Rectal: Deferred. Skin: Warm, dry. Intact. Extremities: 2+ radial pulses bilaterally. No lower extremity edema. Neuro: Sedated. laboratory and microbiology Laboratory Tests 08/03/24 03:15 Test 08/03/24 03:15 Range/Units Serum Glucose 85 74-106 mg/dL Assessment/Plan Impression: Acute hypoxic respiratory failure On mechanical ventilator Pulmonary edema Necrotizing fasciitis Septic shock Morbid obesity Events: Remains on vent support On AC mode with RR 24, VT 400, PEEP 8 -->5, FiO2 30% DNR/comfort measures Sedated on Versed, Fentanyl. Taper sedation as tolerated Patient not tolerating DEDE. Continue antibiotics Continue antifungal Bronchodilators PRN IV steroids Off pressors, hemodynamically stable. Monitor hemodynamics GI recs appreciated Monitor hemoglobin Tube feeds for nutritional support Monitor hemoglobin Monitor platelet count Head of bed elevation Aspiration precautions. Monitor WBC Wound care Recommend PT eval. HD per Nephrology. Monitor renal function Monitor electrolytes. Supplement as necessary. Nephrology recommendations appreciated Awaiting family decision on goals of care. Overall poor prognosis, poor chance of meaningful recovery. U/S Doppler of left upper extremity negative for DVT. 07/17/24 - S/p therapeutic bronchoscopy w/ RLL BAL - cleared mucous plugging from L6-L10 and R6-R10 See separate procedure note for details. Labs and imaging reviewed. Rest of plan as noted below. Plan: s/p intubation on 07/27/24 On mechanical ventilator; AC mode with RR 24, VT 400, PEEP 5, FiO2 30% Sedated on Versed, Fentanyl. Pressors if necessary for hemodynamic support Titrate to keep MAP above 65 mmHg/SBP above 90 mmHg. Monitor hemodynamics IV steroids Antibiotics F/u cultures. Monitor renal function Monitor electrolytes. Supplement as necessary. Monitor ins and outs. GI prophylaxis. DVT prophylaxis. Prognosis: Poor given patient's multiple co-morbidities. Condition: Critical Rest of plan per hospitalist and other consultants. A total of 35 minutes of critical care time was spent reviewing the patient record, examining the patient, making a diagnostic and therapeutic plan, discussing this plan with the medical personnel, following up on diagnostic studies and following the patient for clinical stability excluding any and all procedures. At least 50% of this time was spent in direct, [id number] contact. Thank you Dr. Johnson, for allowing me to participate in this patient's care. Further recommendations will depend on the patient's clinical course. Please do not hesitate to contact me if you have any questions or concerns. This medical document was created using an electronic medical record system with [employer] dictation system. Although these documentations are being carefully reviewed, there may still be some phonetic and typographical changes. The errors are purely typographical, due to imperfection on the software program, and do not reflect any compromise in the patient's medical care. Dietary Evaluation Review Comments: 1) If GI is accessible consider Nepro 1.8 @ 20 ml/hr with current rate of propofol on board 2) If pt remains NPO >7days of NPO status, provide TPN to meet at least 75% of estimated needs 3) Advance pt diet when medically feasible to a Renal Standard diet modified per AIR TRAFFIC INSTRUCTOR recommendations Expected Outcomes/Goals: 1) Pt to receive nutrition support within 7 days of NPO status 2) Pt diet to advance 3) F/U in 2-3 days Plan discussed with: Other (JACEK Clements) Critical Care Time(min): 35 EB DEJESUS MD Aug 03, 2024 22:58
[2024-08-04] VITALS (106 sets, daily range): BP systolic 89–135; BP diastolic 29–68; PULSE 86–105; RESP 13–32; TEMP 98–98.3; O2SAT 85–100
[2024-08-04 04:00] LABS: Hemoglobin 7.6 g/dL (13.5-17.5)
[2024-08-04 04:02] LABS: Hematocrit 22.7 % (41.0-53.0); Mean Corpuscular Hemoglobin 34.2 pg (28.0-32.0); Mean Corpuscular Hgb Conc. 33.7 g/dL (32.0-36.0); Mean Corpuscular Volume 101.4 fL (80.0-100.0); Platelet Count (auto) 60 10^3/uL (140-450); Red Blood Cells 2.24 10^6/uL (4.5-5.90); White Blood Cell 8.7 10^3/uL (4.4-10.8)
[2024-08-04 04:05] LABS: Albumin 3.3 g/dL (3.2-4.8); Total Protein 5.8 g/dL (5.7-8.2)
[2024-08-04 04:06] LABS: Bilirubin, Total 11.3 mg/dL (0.2-1.0)
[2024-08-04 04:14] LABS: Red Cell Distribution Width 22.8 % (11.8-14.3)
[2024-08-04 04:16] LABS: Basophils % (manual) 0 (0.0-2.0); Blast Cells 0; INR 1.48 (0.9-1.15); Partial Thromboplastin Time 34.5 SEC (24.5-34.5); Promyelocytes % 0; Prothrombin Time 15.1 sec (9.3-11.8); Reactive Lymphocytes 0
[2024-08-04 05:11] LABS: Band Neutrophils % (manual) 2; Eosinophils % (manual) 1 (0-7); Lymphocytes % (manual) 7 (10.0-50.0); Metamyelocytes % 1; Monocytes % (manual) 9 (0-12); Myelocytes % 1
[2024-08-04 05:12] LABS: Anisocytosis Slight; Large Platelets FEW; Platelet Estimate Decreased; Target Cell FEW
--- NOTE | 2024-08-04 05:13 | DVH ---
CHEST RADIOGRAPH Indication: pna Technique: Single frontal view of the chest was obtained COMPARISON: XY CHEST PORTABLE on DOS: 08/03/24, XY CHEST PORTABLE on DOS: 08/02/24, XY CHEST PORTABLE on DOS: 08/01/24, XY CHEST PORTABLE on DOS: 07/31/24, XY CHEST PORTABLE on DOS: 07/28/24 FINDINGS: Lines and Tubes: Endotracheal tube, enteric catheter and right central venous catheter in satisfactor y position. Lungs: Pulmonary vascular congestion Pleura: No effusion. No pneumothorax. Cardiomediastinal contours: Cardiomegaly Bones: Unremarkable IMPRESSION: Lines and tubes in satisfactory position. No significant interval change.
[2024-08-04 08:39] LABS: Base Excess -1.5 mmol/L (-2.0-3.0)
--- NOTE | 2024-08-04 10:41 | DVHPN2 ---
Subjective Intubated and sedated On Versed and fentanyl drips Was going to get HD but access was difficult so it will be cancelled Reviewed: Care Plan, H&P, Labs, Medications Changes from previous H/P or p: Changes General: Per HPI Eyes: No Pain, No Vision change, No Conjunctivae inflammation, No Eyelid inflammation, No Other, No Redness ENT: No Ear pain, No Ear discharge, No Nose pain, No Nose discharge, No Nose congestion, No Mouth pain, No Mouth swelling, No Throat pain, No Throat swelling, No Other Cardiovascular: Chest Pain Respiratory: Cough Gastrointestinal: No Nausea, No Vomiting, No Abdominal Pain, No Diarrhea, No Constipation, No Melena, No Hematochezia, No Other Genitourinary: No Dysuria, No Frequency, No Incontinence, No Hematuria, No Retention, No Other Musculoskeletal: other, leg pain Skin: Other Objective Vitals Vital Signs Date Time Temp Pulse Resp B/P (MAP) Pulse Ox O2 Delivery O2 Flow Rate FiO2 08/04/24 10:15 94 24 101/34 (56) 95 107/53 (71) 08/04/24 10:00 30 08/04/24 10:00 Mechanical Ventilator+ 08/04/24 08:00 98.2 98.2 Intake/Output Intake and Output 08/04/24 07:00 Intake Total 1640.334 ml Balance 1640.334 ml IV Total 1502.334 ml Tube Feeding 138 ml General Appearance: Other (Intubated and sedated) Lungs: Other (Bilateral rhonchi) Cardiovascular: Regular rate, Normal S1, Normal S2 Abdomen: Normal bowel sounds, Soft, No tenderness Extremities: Other (2+ edema all upper and lower extremities more pronounced on the left arm) Medications Current Medications Medications Dose Ordered Sig/Rey Route Start Time Stop Time Status Last Admin Dose Admin Vancomycin HCl 0 ml @ 0 mls/hr UD IV 07/08/24 17:00 Cancel Sodium Chloride 10 ml Q8HR IV 07/09/24 06:00 08/04/24 06:08 10 ML Vasopressin 20 units/Sodium Chloride 100 ml @ 9 mls/hr Q11H7M IV 07/09/24 13:15 07/29/24 20:25 6 MLS/HR Norepinephrine Bitartrate 32 mg/ Sodium Chloride 250 ml @ 0.938 mls/ hr Q24H IV 07/09/24 15:30 07/29/24 20:00 13.125 MLS/HR Phenylephrine HCl 80 mg/Sodium Chloride 250 ml @ 7.5 mls/hr Q24H IV 07/09/24 15:45 07/30/24 09:00 29.063 MLS/HR Epinephrine HCl 250 ml @ 7.5 mls/hr Q24H IV 07/09/24 17:00 07/26/24 11:28 7.5 MLS/HR Albumin Human 50 ml @ 100 mls/hr PRN PRN IV 07/13/24 08:30 Cancel Albumin Human 50 ml @ 50 mls/hr PRN PRN IV 07/13/24 08:20 07/28/24 08:10 50 MLS/HR Albuterol 2.5 mg Q6HR HHN 07/18/24 18:00 08/04/24 06:21 2.5 MG Ipratropium [place] 0.5 mg Q6HR NEB 07/18/24 18:00 08/04/24 06:22 0.5 MG Hydralazine HCl 10 mg Q4HR PRN IV 07/19/24 15:30 Hold 07/22/24 09:41 10 MG Labetalol HCl 10 mg Q2HPRN PRN IV 07/22/24 11:15 Bacitracin 1 applic DAILY TOP 07/24/24 10:00 08/03/24 09:30 1 APPLIC Acetaminophen 650 mg DAILY@2029 PO 07/24/24 20:30 08/03/24 21:01 650 MG Diphenhydramine HCl 25 mg DAILY@2030 IV 07/24/24 20:30 08/03/24 21:01 25 MG Diagnostic Test (Pha) 1 strip Q6HR 07/26/24 18:00 08/04/24 05:48 1 STRIP Insulin Human Regular FOLLOW SLIDING SCALE Q6HR SC 07/26/24 18:00 07/31/24 06:10 2 UNITS Dextrose 50 ml UD IV 07/26/24 15:45 Epoetin Justus-epbx 10,000 unit MWF@2100 SC 07/28/24 21:00 08/02/24 21:16 10,000 UNIT Midazolam HCl 50 ml @ 1 mls/hr Q24H IV 07/27/24 15:15 08/04/24 07:15 12 MLS/HR Fentanyl Citrate 250 ml @ 2.5 mls/hr Q24H IV 07/27/24 15:15 08/04/24 02:19 30 MLS/HR Pantoprazole Sodium 40 mg BID IV 07/28/24 10:00 08/03/24 21:02 40 MG Vancomycin HCl 0 ml @ 0 mls/hr UD IV 07/28/24 19:15 Cancel Hydrocortisone Sodium Succinate 100 mg Q8HR IV 07/29/24 14:00 08/04/24 05:48 100 MG Enteral Nutritional Formula 1,000 ml 30ML/HR GT 08/01/24 06:45 Cancel Enteral Nutritional Formula 1,000 ml 30ML/HR GT 08/01/24 09:15 08/03/24 20:40 1,000 ML Trimethoprim/ Sulfamethoxazole 15 ml/Dextrose 265 ml @ 176.667 mls/hr DAILY@2200 IV 08/01/24 22:00 08/03/24 21:20 176.667 MLS/HR Albumin Human 100 ml @ 100 mls/hr PRN PRN IV 08/02/24 06:45 08/02/24 08:00 100 MLS/HR Metoclopramide HCl 5 mg Q8HR IV 08/02/24 22:00 08/04/24 05:48 5 MG Micafungin Sodium 150 mg/Sodium Chloride 100 ml @ 100 mls/hr DAILY IV 08/03/24 10:00 08/03/24 09:58 100 MLS/HR Ursodiol 300 mg BID PO 08/03/24 22:00 08/03/24 21:03 300 MG Laboratory Results Laboratory Tests 08/03/24 03:15 08/04/24 02:55 Chemistry Test 08/04/24 02:55 Albumin 3.3 g/dL (3.2-4.8) Total Protein 5.8 g/dL (5.7-8.2) Coagulation Test 08/04/24 02:55 Prothrombin Time 15.1 sec (9.3-11.8) H Prothrombin Time INR 1.48 (0.9-1.15) H Activated Partial Thromboplast Time 34.5 SEC (24.5-34.5) LFT Test 08/04/24 02:55 Alanine Aminotransferase (ALT) 154 U/L (7-40) H Alkaline Phosphatase 356 U/L (46-116) H Aspartate Amino Transferase (AST) 414 U/L (13-40) H Direct Bilirubin 9.0 mg/dL (<0.3) H Total Bilirubin 11.3 mg/dL (0.2-1.0) H Blood Gas Results Test 08/04/24 07:45 Arterial Blood pH 7.398 (7.350-7.450) FiO2 % 30.0 Microbiology Microbiology Date/Time Source Procedure Growth Status 07/27/24 16:00 Sputum Gram Stain - Final Resulted 07/27/24 16:00 Respiratory Culture - Preliminary Stenotrophomonas maltophilia Resulted 07/26/24 14:50 Blood Blood Culture - Final NO GROWTH AFTER 5 DAYS OF INCUBATION. Complete 07/09/24 19:55 Trachea Gram Stain - Final Complete 07/09/24 19:55 Trachea Respiratory Culture - Final Complete Assessment/Plan Assessment/Plan Acute hypoxic respiratory failure End-stage renal disease on hemodialysis Dilated cardiomyopathy Acute on chronic systolic and diastolic heart failure with ejection fraction 25% Status post severe sepsis with septic shock due to bacteremia and E coli ESBL Morbid obesity Thrombocytopenia Sepsis with septic shock Hypoalbuminemia CAD Mixed hyperlipidemia DM2 PLAN: Sepsis: Amphotericin IV Bactrim IV Pneumonia with Stenotrophomonas maltophilia Bacteremia with E. coli ESBL HD per nephrology LUE edema: Rule out DVT, doppler US Off pressors Taper sedation as tolerated Will meet with family for plan of care 08/03/24: Discussed with family at the bedside Explained to the family the poor prognosis DNR Family would like to go ahead with terminal weaning We will taper down the sedation Discontinue Versed 1st and then fentanyl and then we will do a terminal weaning once the family is ready in 1-2 days 08/04/24: DNR Plan to do terminal extubation tomorrow per family's request HD was not done today due to access difficulty Plan discussed with: Other My Orders Orders - DG AQUINO MD Procedure Category Date Status Time Code Status CODE 08/03/24 Transmitted 11:57 Date of Service: Aug 04, 2024 Billing Provider: DG AQUINO MD Common Visit Codes: NOT BILLABLE DG AQUINO MD Aug 04, 2024 10:41
--- NOTE | 2024-08-04 10:50 | DVHPN2 ---
Progress Note - Dictate Date Seen: Aug 04, 2024 Has the PT tested + for MRSA If YES, has PT been informed?: No Medical Necessity Reason Pt with a Central, PICC or Fol: Yes The following are medically ne: Central Line Subjective Mr. Daniel altered gentleman with a history of hypertension, dyslipidemia, coronary artery disease, kidney cancer status post nephrectomy, kidney failure on hemodialysis, the patient was brought to the [facility] He was reintubated on 06/26/25 I have seen and examined the patient, I have discussed with his nurse, he is going through hemodialysis. He open his eyes to stroke painful stimuli He was doll's eye phenomena, but no gag reflexes Fentanyl 300 mcg/hour, Versed 12 mg/hour Blood culture, 07/08/2024: E coli HIV & II Ab, 07/10/24: Negative ABG, 07/09/2024: Metabolic acidosis, 07/10/2024: Metabolic acidosis, WBC/HB/PLT/MCV, 07/19/2024: 13.1/9.6/65/105.9, 08/04/2024: 8.7/7.6/60/101.4 PT/INR/PTT, 07/11/2024: 35.6/3.63/38.4, 07/08/2024: 17.4/1.73/34.2, 07/28/2024: 17.1/1.7, 08/04/2024: 15.1/1.48/34.5 BUN/CR, 07/09/2024: 59/3.03 07/19/2024: 78/4.54 07/20/2024: 92/5.37 Lactic acid, 07/08/2019 5:3.1, 07/09/2024: 9.6, 07/10/24: 15.5, 07/11/2024: 449, 12.2, 07/29/2024: 43/2.02 HGB A1c, : 3.8 CPK 07/08/2019 5:114, 07/19/2024: 1579 TBI/AST/ALT/AP, 07/08/24, 0.6/244/561/105, 07/09/2024: 1.1/306/563/101, 07/19/2024: 12/212/261/138, 07/28/2024, 8.9/76/23/160. 08/03/2024: 11.8/335/111/326 Hepatitis panel, : Negative TG/HDL/LDL/HDL, 07/10/2024: 364/60/5/<5 Vitamin B12, 07/19/2024: >4000 Folic acid 07/19/2024: 9.12 TSH, 07/10/2024: 0.33 EEG 07/19/2024: inadequate but likely mildly abnormal EEG Chest x-ray, 07/08/2024: Bronchovascular crowding. Underlying mild pulmonary vascular congestion can not be excluded Obscuration of the left hemidiaphragm which may be from overlying cardiac silhouette with underlying pleural effusion /atelectasis / pneumonia not excluded. Chest x-ray, 07/09/2024: 1. Left lower lobe opacity may reflect atelectasis or mild pneumonia. 2. Mild interstitial pulmonary edema. 3. Small left pleural effusion. 4. Lines and tubes as above (Endotracheal tube terminates 1.8 cm above the quin) Chest x-ray, 07/17/2024: Endotracheal tube terminates 4.8 cm from the quin. Enteric tube is overlying the plane of the stomach Chest x-ray, 07/27/2024: Cardiomegaly with pulmonary congestion. Left basilar consolidation with small effusion Chest X-ray, 08/02/2024: 1. Stable position of the support lines and tubes. 2. Mild bilateral opacities are similar to the prior study which may reflect pulmonary vascular congestion CT head, 07/19/2024: Atrophy. No acute intracranial pathology vital signs Vital Sign Date Time Temp Pulse Resp B/P (MAP) Pulse Ox O2 Delivery O2 Flow Rate FiO2 08/04/24 10:15 94 24 101/34 (56) 95 107/53 (71) 08/04/24 10:00 30 08/04/24 10:00 Mechanical Ventilator+ 08/04/24 08:00 98.2 98.2 Total Intake and Output 08/03/24 08/03/24 08/04/24 15:00 23:00 07:00 Intake Total 452 ml 780.334 ml 408 ml Balance 452 ml 780.334 ml 408 ml medications Current Medications Medications Dose Ordered Sig/Rey Route Start Time Stop Time Status Last Admin Dose Admin Vancomycin HCl 0 ml @ 0 mls/hr UD IV 07/08/24 17:00 Cancel Sodium Chloride 10 ml Q8HR IV 07/09/24 06:00 08/04/24 06:08 Vasopressin 20 units/Sodium Chloride 100 ml @ 9 mls/hr Q11H7M IV 07/09/24 13:15 07/29/24 20:25 Norepinephrine Bitartrate 32 mg/ Sodium Chloride 250 ml @ 0.938 mls/ hr Q24H IV 07/09/24 15:30 07/29/24 20:00 Phenylephrine HCl 80 mg/Sodium Chloride 250 ml @ 7.5 mls/hr Q24H IV 07/09/24 15:45 07/30/24 09:00 Epinephrine HCl 250 ml @ 7.5 mls/hr Q24H IV 07/09/24 17:00 07/26/24 11:28 Albumin Human 50 ml @ 100 mls/hr PRN PRN IV 07/13/24 08:30 Cancel Albumin Human 50 ml @ 50 mls/hr PRN PRN IV 07/13/24 08:20 07/28/24 08:10 Albuterol 2.5 mg Q6HR HHN 07/18/24 18:00 08/04/24 06:21 Ipratropium [place] 0.5 mg Q6HR NEB 07/18/24 18:00 08/04/24 06:22 Hydralazine HCl 10 mg Q4HR PRN IV 07/19/24 15:30 Hold 07/22/24 09:41 Labetalol HCl 10 mg Q2HPRN PRN IV 07/22/24 11:15 Bacitracin 1 applic DAILY TOP 07/24/24 10:00 08/03/24 09:30 Acetaminophen 650 mg DAILY@2029 PO 07/24/24 20:30 08/03/24 21:01 Diphenhydramine HCl 25 mg DAILY@2029 IV 07/24/24 20:30 08/03/24 21:01 Diagnostic Test (Pha) 1 strip Q6HR 07/26/24 18:00 08/04/24 05:48 Insulin Human Regular FOLLOW SLIDING SCALE Q6HR SC 07/26/24 18:00 07/31/24 06:10 Dextrose 50 ml UD IV 07/26/24 15:45 Epoetin [place]-epbx 10,000 unit MWF@2100 SC 07/28/24 21:00 08/02/24 21:16 Midazolam HCl 50 ml @ 1 mls/hr Q24H IV 07/27/24 15:15 08/04/24 07:15 Fentanyl Citrate 250 ml @ 2.5 mls/hr Q24H IV 07/27/24 15:15 08/04/24 02:19 Pantoprazole Sodium 40 mg BID IV 07/28/24 10:00 08/03/24 21:02 Vancomycin HCl 0 ml @ 0 mls/hr UD IV 07/28/24 19:15 Cancel Hydrocortisone Sodium Succinate 100 mg Q8HR IV 07/29/24 14:00 08/04/24 05:48 Enteral Nutritional Formula 1,000 ml 30ML/HR GT 08/01/24 06:45 Cancel Enteral Nutritional Formula 1,000 ml 30ML/HR GT 08/01/24 09:15 08/03/24 20:40 Trimethoprim/ Sulfamethoxazole 15 ml/Dextrose 265 ml @ 176.667 mls/hr DAILY@2200 IV 08/01/24 22:00 08/03/24 21:20 Albumin Human 100 ml @ 100 mls/hr PRN PRN IV 08/02/24 06:45 08/02/24 08:00 Metoclopramide HCl 5 mg Q8HR IV 08/02/24 22:00 08/04/24 05:48 Micafungin Sodium 150 mg/Sodium Chloride 100 ml @ 100 mls/hr DAILY IV 08/03/24 10:00 08/03/24 09:58 Ursodiol 300 mg BID PO 08/03/24 22:00 08/03/24 21:03 objective The patient is well-nourished and well-developed with no distress. The patient is intubated MENTAL STATUS: Subjective CRANIAL NERVES: Pupils are equal, round and nonreactive, small. There are corneal reflexes and doll's eyes phenomenon. No signs of facial weakness. There are no gagging or coughing reflexes SENSATION: Responses to pain stimuli. MOTOR: Normal tone in the upper and lower extremity. Normal muscle bulk. No fasciculations. No spontaneous movement. REFLEXES: Deep tendon reflexes are symmetrical. No pathological reflexes. CEREBELLAR/COORDINATION: Deferred GAIT/STATION: deferred. laboratory and microbiology Laboratory Tests 08/04/24 02:55 08/03/24 03:15 Test 08/03/24 03:15 Range/Units Serum Glucose 85 74-106 mg/dL Problem List Altered mental status, Metabolic encephalopathy Hypoxic encephalopathy Toxic encephalopathy Hepatic encephalopathy Respiratory failure, reintubated Sepsis/septic shock Pneumonia Cellulitis Metabolic acidosis Coagulopathy secondary to liver failure Elevated liver function test Thrombocytopenia Macrocytic anemia Elevated liver function tests ICU myopathy Assessment/Plan Monitoring Supportive treatment ICU care Venous duplex to the arms MRI brain scan later Stabilize vitals/pressor drip Respiratory support/vent management Oxygen Antibiotics GI prophylaxis/pantoprazole Infectious disease on case Pulmonary on case Cardiology on case Nephrology on case More recommendation per clinical course This medical document was created using an electronic medical record system with HelloSign dictation system. Although this document has been carefully reviewed, there may still be some phonetic and typographical errors. These areas are purely typographical due to imperfections of the software programs, and do not reflect any compromise in the patient's medical care Prognosis guarded Dietary Evaluation Review Comments: 1) If GI is accessible consider Nepro 1.8 @ 20 ml/hr with current rate of propofol on board 2) If pt remains NPO >7days of NPO status, provide TPN to meet at least 75% of estimated needs 3) Advance pt diet when medically feasible to a Renal Standard diet modified per [facility]HORNER recommendations Expected Outcomes/Goals: 1) Pt to receive nutrition support within 7 days of NPO status 2) Pt diet to advance 3) F/U in 2-3 days Plan discussed with: Other SUMIT SANTAMARIA MD Aug 04, 2024 10:50
--- NOTE | 2024-08-04 13:47 | DVHPN2 ---
Progress Note Date Seen: Aug 04, 2024 Resident Creating Document: SULTANA GARCIA RESIDENT Has the PT tested + for MRSA If YES, has PT been informed?: No Medical Necessity Reason Pt with a Central, PICC or Fol: Yes The following are medically ne: Central Line Subjective Review of Systems Patient seen and examined in the ICU. Hemoglobin is stable at 8.3. Up trending LFTs. Objective vital signs Vital Sign Date Time Temp Pulse Resp B/P (MAP) Pulse Ox O2 Delivery O2 Flow Rate FiO2 08/04/24 12:00 24 96 Mechanical Ventilator+ 30 30 08/04/24 12:00 92 08/04/24 12:00 95/40 (58) 106/53 (70) 08/04/24 08:00 98.2 98.2 Total Intake and Output 08/03/24 08/03/24 08/04/24 15:00 23:00 07:00 Intake Total 452 ml 780.334 ml 408 ml Balance 452 ml 780.334 ml 408 ml medications Current Medications Medications Dose Ordered Sig/Rey Route Start Time Stop Time Status Last Admin Dose Admin Vancomycin HCl 0 ml @ 0 mls/hr UD IV 07/08/24 17:00 Cancel Sodium Chloride 10 ml Q8HR IV 07/09/24 06:00 08/04/24 06:08 10 ML Vasopressin 20 units/Sodium Chloride 100 ml @ 9 mls/hr Q11H7M IV 07/09/24 13:15 07/29/24 20:25 6 MLS/HR Norepinephrine Bitartrate 32 mg/ Sodium Chloride 250 ml @ 0.938 mls/ hr Q24H IV 07/09/24 15:30 07/29/24 20:00 13.125 MLS/HR Phenylephrine HCl 80 mg/Sodium Chloride 250 ml @ 7.5 mls/hr Q24H IV 07/09/24 15:45 07/30/24 09:00 29.063 MLS/HR Epinephrine HCl 250 ml @ 7.5 mls/hr Q24H IV 07/09/24 17:00 07/26/24 11:28 7.5 MLS/HR Albumin Human 50 ml @ 100 mls/hr PRN PRN IV 07/13/24 08:30 Cancel Albumin Human 50 ml @ 50 mls/hr PRN PRN IV 07/13/24 08:20 07/28/24 08:10 50 MLS/HR Albuterol 2.5 mg Q6HR HHN 07/18/24 18:00 08/04/24 12:42 2.5 MG Ipratropium [place] 0.5 mg Q6HR NEB 07/18/24 18:00 08/04/24 12:42 0.5 MG Hydralazine HCl 10 mg Q4HR PRN IV 07/19/24 15:30 Hold 07/22/24 09:41 10 MG Labetalol HCl 10 mg Q2HPRN PRN IV 07/22/24 11:15 Bacitracin 1 applic DAILY TOP 07/24/24 10:00 08/03/24 09:30 1 APPLIC Acetaminophen 650 mg DAILY@2029 PO 07/24/24 20:30 08/03/24 21:01 650 MG Diphenhydramine HCl 25 mg DAILY@2029 IV 07/24/24 20:30 08/03/24 21:01 25 MG Diagnostic Test (Pha) 1 strip Q6HR 07/26/24 18:00 08/04/24 11:40 1 STRIP Insulin Human Regular FOLLOW SLIDING SCALE Q6HR CA 07/26/24 18:00 07/31/24 06:10 2 UNITS Dextrose 50 ml UD IV 07/26/24 15:45 Epoetin [place]-epbx 10,000 unit MWF@2100 SC 07/28/24 21:00 08/02/24 21:16 10,000 UNIT Midazolam HCl 50 ml @ 1 mls/hr Q24H IV 07/27/24 15:15 08/04/24 11:56 12 MLS/HR Fentanyl Citrate 250 ml @ 2.5 mls/hr Q24H IV 07/27/24 15:15 08/04/24 10:59 30 MLS/HR Pantoprazole Sodium 40 mg BID IV 07/28/24 10:00 08/04/24 11:46 40 MG Vancomycin HCl 0 ml @ 0 mls/hr UD IV 07/28/24 19:15 Cancel Hydrocortisone Sodium Succinate 100 mg Q8HR IV 07/29/24 14:00 08/04/24 05:48 100 MG Enteral Nutritional Formula 1,000 ml 30ML/HR GT 08/01/24 06:45 Cancel Enteral Nutritional Formula 1,000 ml 30ML/HR GT 08/01/24 09:15 08/03/24 20:40 1,000 ML Trimethoprim/ Sulfamethoxazole 15 ml/Dextrose 265 ml @ 176.667 mls/hr DAILY@2200 IV 08/01/24 22:00 08/03/24 21:20 176.667 MLS/HR Albumin Human 100 ml @ 100 mls/hr PRN PRN IV 08/02/24 06:45 08/04/24 10:15 100 MLS/HR Metoclopramide HCl 5 mg Q8HR IV 08/02/24 22:00 08/04/24 05:48 5 MG Micafungin Sodium 150 mg/Sodium Chloride 100 ml @ 100 mls/hr DAILY IV 08/03/24 10:00 08/04/24 11:47 100 MLS/HR Ursodiol 300 mg BID PO 08/03/24 22:00 08/04/24 11:47 300 MG Examination GENERAL: Intubated on ventilator. obese. NG output bilious, bleeding from the mouth LUNGS: Decreased breath sounds. CARDIOVASCULAR: Heart sounds are good. ABDOMEN: Soft. Nontender, normoactive bowel sounds. Resolving Left lower quadrant maculopapular rash EXT: Upper and lower extremity edema laboratory and microbiology Laboratory Tests 08/04/24 02:55 08/03/24 03:15 Test 08/03/24 03:15 Range/Units Serum Glucose 85 74-106 mg/dL Microbiology Date/Time Source Procedure Growth Status 07/27/24 16:00 Sputum Gram Stain - Final Resulted 07/27/24 16:00 Respiratory Culture - Preliminary Stenotrophomonas maltophilia Resulted 07/26/24 14:50 Blood Blood Culture - Final NO GROWTH AFTER 5 DAYS OF INCUBATION. Complete 07/09/24 19:55 Trachea Gram Stain - Final Complete 07/09/24 19:55 Trachea Respiratory Culture - Final Complete Labs and/or images reviewed: Labs reviewed by me, Image(s) reviewed by me Problem List/Assessment/Plan Problem List/Assessment/Plan Active GI bleeding requiring transfusion - unspecified cause Transaminitis secondary to Bactrim versus hemosiderosis Acute respiratory failure-> reintubated uremic acidosis / lactic acidosis septic shock with E Coli bacteremia Pneumonia with stenotrophomonas Coronary artery disease status post CABG in 2021 fungal infection lower extremity wound Macrocytic anemia Anemia of chronic disease hypoglycemia hyperkalemia Severe thrombocytopenia severe fluid overload Plan: Given that the patient's hemoglobin is stable and no episodes of hematemesis/melena/hematochezia noted, patient's GI bleeding is likely resolved. Recommend continuing with conservative management for now. Patient is unstable for any GI procedure currently. Recommend Discontinue Bactrim given the transaminitis Patient may have underlying hemosiderosis given the normal iron and an increased% saturation Continue IV PPI b.i.d. 40 mg Continue Reglan 5 mg q.8h hourly 07/29-1 unit of packed RBC and 1 unit of platelet ordered Maintain hemoglobin greater than 7 G per dL, transfuse as necessary HD treatment Antibiotics per primary team Enteral feeding as tolerated clinically unstable, prognosis is poor Case discussed with Dr. [place] Plan discussed with: Patient Dietary Evaluation Review Comments: 1) If GI is accessible consider Nepro 1.8 @ 20 ml/hr with current rate of propofol on board 2) If pt remains NPO >7days of NPO status, provide TPN to meet at least 75% of estimated needs 3) Advance pt diet when medically feasible to a Renal Standard diet modified per [employer] recommendations Expected Outcomes/Goals: 1) Pt to receive nutrition support within 7 days of NPO status 2) Pt diet to advance 3) F/U in 2-3 days SULTANA GARCIA RESIDENT Aug 04, 2024 13:47
--- NOTE | 2024-08-04 15:41 | DVHPN2 ---
Progress Note - Dictate Date Seen: Aug 04, 2024 Has the PT tested + for MRSA If YES, has PT been informed?: No Medical Necessity Reason Pt with a Central, PICC or Fol: Yes The following are medically ne: Central Line Subjective Patient was seen and evaluated in follow up in the ICU. Patient is intubated and sedated on ventilator. 30% FiO2. Patient opens his eyes to strong painful stimuli. Patient received HD this am. HGB 7.6, HCT 22.7, PT 15.1, INR 1.48, AST 414, AST 154. vital signs Vital Sign Date Time Temp Pulse Resp B/P (MAP) Pulse Ox O2 Delivery O2 Flow Rate FiO2 08/04/24 13:45 91 26 96/37 (56) 96 101/51 (68) 08/04/24 12:15 98.3 98.3 08/04/24 12:00 Mechanical Ventilator+ 30 30 Total Intake and Output 08/03/24 08/03/24 08/04/24 15:00 23:00 07:00 Intake Total 452 ml 780.334 ml 408 ml Balance 452 ml 780.334 ml 408 ml medications Current Medications Medications Dose Ordered Sig/Rey Route Start Time Stop Time Status Last Admin Dose Admin Vancomycin HCl 0 ml @ 0 mls/hr UD IV 07/08/24 17:00 Cancel Sodium Chloride 10 ml Q8HR IV 07/09/24 06:00 08/04/24 06:08 10 ML Vasopressin 20 units/Sodium Chloride 100 ml @ 9 mls/hr Q11H7M IV 07/09/24 13:15 07/29/24 20:25 6 MLS/HR Norepinephrine Bitartrate 32 mg/ Sodium Chloride 250 ml @ 0.938 mls/ hr Q24H IV 07/09/24 15:30 07/29/24 20:00 13.125 MLS/HR Phenylephrine HCl 80 mg/Sodium Chloride 250 ml @ 7.5 mls/hr Q24H IV 07/09/24 15:45 07/30/24 09:00 29.063 MLS/HR Epinephrine HCl 250 ml @ 7.5 mls/hr Q24H IV 07/09/24 17:00 07/26/24 11:28 7.5 MLS/HR Albumin Human 50 ml @ 100 mls/hr PRN PRN IV 07/13/24 08:30 Cancel Albumin Human 50 ml @ 50 mls/hr PRN PRN IV 07/13/24 08:20 07/28/24 08:10 50 MLS/HR Albuterol 2.5 mg Q6HR HHN 07/18/24 18:00 08/04/24 12:42 2.5 MG Ipratropium [place] 0.5 mg Q6HR NEB 07/18/24 18:00 08/04/24 12:42 0.5 MG Hydralazine HCl 10 mg Q4HR PRN IV 07/19/24 15:30 Hold 07/22/24 09:41 10 MG Labetalol HCl 10 mg Q2HPRN PRN IV 07/22/24 11:15 Bacitracin 1 applic DAILY TOP 07/24/24 10:00 08/03/24 09:30 1 APPLIC Acetaminophen 650 mg DAILY@2029 PO 07/24/24 20:30 08/03/24 21:01 650 MG Diphenhydramine HCl 25 mg DAILY@2029 IV 07/24/24 20:30 08/03/24 21:01 25 MG Diagnostic Test (Pha) 1 strip Q6HR 07/26/24 18:00 08/04/24 11:40 1 STRIP Insulin Human Regular FOLLOW SLIDING SCALE Q6HR SC 07/26/24 18:00 07/31/24 06:10 2 UNITS Dextrose 50 ml UD IV 07/26/24 15:45 Epoetin Justus-epbx 10,000 unit MWF@2100 SC 07/28/24 21:00 08/02/24 21:16 10,000 UNIT Midazolam HCl 50 ml @ 1 mls/hr Q24H IV 07/27/24 15:15 08/04/24 11:56 12 MLS/HR Fentanyl Citrate 250 ml @ 2.5 mls/hr Q24H IV 07/27/24 15:15 08/04/24 10:59 30 MLS/HR Pantoprazole Sodium 40 mg BID IV 07/28/24 10:00 08/04/24 11:46 40 MG Vancomycin HCl 0 ml @ 0 mls/hr UD IV 07/28/24 19:15 Cancel Hydrocortisone Sodium Succinate 100 mg Q8HR IV 07/29/24 14:00 08/04/24 05:48 100 MG Enteral Nutritional Formula 1,000 ml 30ML/HR GT 08/01/24 06:45 Cancel Enteral Nutritional Formula 1,000 ml 30ML/HR GT 08/01/24 09:15 08/03/24 20:40 1,000 ML Trimethoprim/ Sulfamethoxazole 15 ml/Dextrose 265 ml @ 176.667 mls/hr DAILY@2200 IV 08/01/24 22:00 08/03/24 21:20 176.667 MLS/HR Albumin Human 100 ml @ 100 mls/hr PRN PRN IV 08/02/24 06:45 08/04/24 10:15 100 MLS/HR Metoclopramide HCl 5 mg Q8HR IV 08/02/24 22:00 08/04/24 05:48 5 MG Micafungin Sodium 150 mg/Sodium Chloride 100 ml @ 100 mls/hr DAILY IV 08/03/24 10:00 08/04/24 11:47 100 MLS/HR Ursodiol 300 mg BID PO 08/03/24 22:00 08/04/24 11:47 300 MG objective GENERAL: Intubated on ventilator. Morbidly obese. LUNGS: Decreased breath sounds. CARDIOVASCULAR: Heart sounds are good. ABDOMEN: Soft. EXT: BLE edema. laboratory and microbiology Laboratory Tests 08/04/24 02:55 08/03/24 03:15 Test 08/03/24 03:15 Range/Units Serum Glucose 85 74-106 mg/dL Problem List Hypotension secondary to septic shock. Coronary artery disease status post CABG in 2021. History of hypertension. Hyperlipidemia. Hyperkalemia. Acute anemia. Thrombocytopenia. Transaminitis. End-stage renal disease on hemodialysis. Renal cell carcinoma status post left nephrectomy. COPD. Asthma. Morbid obesity. Dilated cardiomyopathy. Metabolic encephalopathy. Assessment/Plan Continued all current supportive medical care. GI prophylactics. IV antibiotics as ordered. Vasopressors for hemodynamic support. Additional plan as per the hospital course. Critical care time of 45 minutes provided to include time spent evaluation of patient at bedside, when appropriate patient/family education for diagnosis, treatment plan, review of pertinent medical information and discussion of care with specialty providers and PCP. Mechanical ventilator parameters, treatment and adjustments have personally been reviewed by me and treatment plan by boner meat has also been reviewed. Dietary Evaluation Review Comments: 1) If GI is accessible consider Nepro 1.8 @ 20 ml/hr with current rate of propofol on board 2) If pt remains NPO >7days of NPO status, provide TPN to meet at least 75% of estimated needs 3) Advance pt diet when medically feasible to a Renal Standard diet modified per W[employer] recommendations Expected Outcomes/Goals: 1) Pt to receive nutrition support within 7 days of NPO status 2) Pt diet to advance 3) F/U in 2-3 days Plan discussed with: Other FRIDA SIMMONS MD Aug 04, 2024 14:08
--- NOTE | 2024-08-04 17:34 | DVHPN2 ---
Progress Note Date Seen: Aug 04, 2024 Has the PT tested + for MRSA If YES, has PT been informed?: No Medical Necessity Reason Pt with a Central, PICC or Fol: Yes The following are medically ne: Central Line Subjective Patient reports: Other (Events noted) Review of Systems: Deferred Objective vital signs Vital Sign Date Time Temp Pulse Resp B/P (MAP) Pulse Ox O2 Delivery O2 Flow Rate FiO2 08/04/24 17:00 93 24 106/29 (54) 96 101/52 (68) 08/04/24 16:10 30 08/04/24 16:00 Mechanical Ventilator+ 08/04/24 16:00 98.1 98.1 Total Intake and Output 08/03/24 08/03/24 08/04/24 15:00 23:00 07:00 Intake Total 452 ml 780.334 ml 408 ml Balance 452 ml 780.334 ml 408 ml medications Current Medications Medications Dose Ordered Sig/Rey Route Start Time Stop Time Status Last Admin Dose Admin Vancomycin HCl 0 ml @ 0 mls/hr UD IV 07/08/24 17:00 Cancel Sodium Chloride 10 ml Q8HR IV 07/09/24 06:00 08/04/24 06:08 10 ML Vasopressin 20 units/Sodium Chloride 100 ml @ 9 mls/hr Q11H7M IV 07/09/24 13:15 07/29/24 20:25 6 MLS/HR Norepinephrine Bitartrate 32 mg/ Sodium Chloride 250 ml @ 0.938 mls/ hr Q24H IV 07/09/24 15:30 07/29/24 20:00 13.125 MLS/HR Phenylephrine HCl 80 mg/Sodium Chloride 250 ml @ 7.5 mls/hr Q24H IV 07/09/24 15:45 07/30/24 09:00 29.063 MLS/HR Epinephrine HCl 250 ml @ 7.5 mls/hr Q24H IV 07/09/24 17:00 07/26/24 11:28 7.5 MLS/HR Albumin Human 50 ml @ 100 mls/hr PRN PRN IV 07/13/24 08:30 Cancel Albumin Human 50 ml @ 50 mls/hr PRN PRN IV 07/13/24 08:20 07/28/24 08:10 50 MLS/HR Albuterol 2.5 mg Q6HR HHN 07/18/24 18:00 08/04/24 12:42 2.5 MG Ipratropium [place] 0.5 mg Q6HR NEB 07/18/24 18:00 08/04/24 12:42 0.5 MG Hydralazine HCl 10 mg Q4HR PRN IV 07/19/24 15:30 Hold 07/22/24 09:41 10 MG Labetalol HCl 10 mg Q2HPRN PRN IV 07/22/24 11:15 Bacitracin 1 applic DAILY TOP 07/24/24 10:00 08/03/24 09:30 1 APPLIC Acetaminophen 650 mg DAILY@2029 PO 07/24/24 20:30 08/03/24 21:01 650 MG Diphenhydramine HCl 25 mg DAILY@2029 IV 07/24/24 20:30 08/03/24 21:01 25 MG Diagnostic Test (Pha) 1 strip Q6HR 07/26/24 18:00 08/04/24 11:40 1 STRIP Insulin Human Regular FOLLOW SLIDING SCALE Q6HR SC 07/26/24 18:00 07/31/24 06:10 2 UNITS Dextrose 50 ml UD IV 07/26/24 15:45 Epoetin Justus-epbx 10,000 unit MWF@2100 SC 07/28/24 21:00 08/02/24 21:16 10,000 UNIT Midazolam HCl 50 ml @ 1 mls/hr Q24H IV 07/27/24 15:15 08/04/24 15:15 12 MLS/HR Fentanyl Citrate 250 ml @ 2.5 mls/hr Q24H IV 07/27/24 15:15 08/04/24 10:59 30 MLS/HR Pantoprazole Sodium 40 mg BID IV 07/28/24 10:00 08/04/24 11:46 40 MG Vancomycin HCl 0 ml @ 0 mls/hr UD IV 07/28/24 19:15 Cancel Hydrocortisone Sodium Succinate 100 mg Q8HR IV 07/29/24 14:00 08/04/24 05:48 100 MG Enteral Nutritional Formula 1,000 ml 30ML/HR GT 08/01/24 06:45 Cancel Enteral Nutritional Formula 1,000 ml 30ML/HR GT 08/01/24 09:15 08/03/24 20:40 1,000 ML Trimethoprim/ Sulfamethoxazole 15 ml/Dextrose 265 ml @ 176.667 mls/hr DAILY@2200 IV 08/01/24 22:00 08/03/24 21:20 176.667 MLS/HR Albumin Human 100 ml @ 100 mls/hr PRN PRN IV 08/02/24 06:45 08/04/24 10:15 100 MLS/HR Metoclopramide HCl 5 mg Q8HR IV 08/02/24 22:00 08/04/24 05:48 5 MG Micafungin Sodium 150 mg/Sodium Chloride 100 ml @ 100 mls/hr DAILY IV 08/03/24 10:00 08/04/24 11:47 100 MLS/HR Ursodiol 300 mg BID PO 08/03/24 22:00 08/04/24 11:47 300 MG Morphine Sulfate 1 mg Q1HP PRN IV 08/04/24 14:00 Lorazepam 1 mg Q1HP PRN IV 08/04/24 14:00 Examination: LUNGS:Abnormal, MSK:Abnormal, NEURO:Abnormal laboratory and microbiology Laboratory Tests 08/04/24 02:55 08/03/24 03:15 Test 08/03/24 03:15 Range/Units Serum Glucose 85 74-106 mg/dL Microbiology Date/Time Source Procedure Growth Status 07/27/24 16:00 Sputum Gram Stain - Final Resulted 07/27/24 16:00 Respiratory Culture - Preliminary Stenotrophomonas maltophilia Resulted 07/26/24 14:50 Blood Blood Culture - Final NO GROWTH AFTER 5 DAYS OF INCUBATION. Complete 07/09/24 19:55 Trachea Gram Stain - Final Complete 07/09/24 19:55 Trachea Respiratory Culture - Final Complete Problem List/Assessment/Plan Problem List/Assessment/Plan ESRD on HD hyperkalemia septic shock with gram-negative anabella bacteremia lower extremity wound anemia hypoglycemia recs Plan for terminally wean per family request noted and comfort care has been ordered Hold off dialysis We will sign off this case Plan discussed with: Other My Orders My Orders Orders - FAYE KAUR MD Procedure Category Date Status Time Hemodialysis Orders ORDERS 08/04/24 Transmitted 04:00 Dietary Evaluation Review Comments: 1) If GI is accessible consider Nepro 1.8 @ 20 ml/hr with current rate of propofol on board 2) If pt remains NPO >7days of NPO status, provide TPN to meet at least 75% of estimated needs 3) Advance pt diet when medically feasible to a Renal Standard diet modified per PHERESIS SPECIALIST recommendations Expected Outcomes/Goals: 1) Pt to receive nutrition support within 7 days of NPO status 2) Pt diet to advance 3) F/U in 2-3 days FAYE KAUR MD Aug 04, 2024 17:34
[2024-08-04] MEDS: LORazepam 2MG/ML-1ML VIAL IV PRN (21:45)
[2024-08-04] MEDS: MORPHINE SULFATE INJ 2 MG/ml SYRG IV PRN (21:46)
--- NOTE | 2024-08-04 23:30 | DVHPN2 ---
Progress Note - Dictate Date Seen: Aug 04, 2024 Has the PT tested + for MRSA If YES, has PT been informed?: No Medical Necessity Reason Pt with a Central, PICC or Fol: Yes The following are medically ne: Central Line Subjective Patient seen and examined at bedside. Sedated, intubated on mechanical ventilator. Overnight events reviewed. vital signs Vital Sign Date Time Temp Pulse Resp B/P (MAP) Pulse Ox O2 Delivery O2 Flow Rate FiO2 08/04/24 22:50 100 14 108/52 08/04/24 22:15 88 08/04/24 22:00 Room Air* 0 21 08/04/24 20:00 98.0 98.0 Total Intake and Output 08/03/24 08/03/24 08/04/24 15:00 23:00 07:00 Intake Total 452 ml 780.334 ml 408 ml Balance 452 ml 780.334 ml 408 ml medications Current Medications Medications Dose Ordered Sig/Rey Route Start Time Stop Time Status Last Admin Dose Admin Vancomycin HCl 0 ml @ 0 mls/hr UD IV 07/08/24 17:00 Cancel Albumin Human 50 ml @ 100 mls/hr PRN PRN IV 07/13/24 08:30 Cancel Vancomycin HCl 0 ml @ 0 mls/hr UD IV 07/28/24 19:15 Cancel Enteral Nutritional Formula 1,000 ml 30ML/HR GT 08/01/24 06:45 Cancel Morphine Sulfate 1 mg Q1HP PRN IV 08/04/24 14:00 08/04/24 22:50 1 MG Lorazepam 1 mg Q1HP PRN IV 08/04/24 14:00 08/04/24 22:49 1 MG objective Gen.: Patient lying in bed in medical ICU. Sedated, intubated on mechanical ventilator. Head: Normocephalic, atraumatic. Eyes: PERRLA. Ears: Normal external anatomy. Throat: Endotracheal tube and orogastric tube in place. Neck: Supple, trachea midline. Chest: Transmitted breath sounds bilaterally. Decreased air entry bilaterally. No wheezing. Bibasilar crackles. Cardiovascular: Positive S1, positive S2. Regular rate and rhythm. Abdomen: Positive bowel sounds in all 4 quadrants. Soft, nontender, nondistended. : Whiting in place. Normal external genitalia. Rectal: Deferred. Skin: Warm, dry. Intact. Extremities: 2+ radial pulses bilaterally. No lower extremity edema. Neuro: Sedated. laboratory and microbiology Laboratory Tests 08/04/24 02:55 08/03/24 03:15 Test 08/03/24 03:15 Range/Units Serum Glucose 85 74-106 mg/dL Assessment/Plan Impression: Acute hypoxic respiratory failure On mechanical ventilator Pulmonary edema Necrotizing fasciitis Septic shock Morbid obesity Events: Remains on vent support On AC mode with RR 24, VT 400, PEEP 5, FiO2 30% Family decided on comfort care - plan for compassionate extubation DNR/comfort measures Sedated on Versed, Fentanyl. Taper sedation as tolerated Patient not tolerating DEDE. Continue antifungal Bronchodilators PRN Off pressors, hemodynamically stable. Monitor hemodynamics GI recs appreciated Monitor hemoglobin Tube feeds for nutritional support Monitor hemoglobin Monitor platelet count Head of bed elevation Aspiration precautions. Monitor WBC Wound care Recommend PT eval. HD per Nephrology. Monitor renal function Monitor electrolytes. Supplement as necessary. Nephrology recommendations appreciated Family decided on comfort care - plan for compassionate extubation Poor prognosis, poor chance of meaningful recovery. U/S Doppler of left upper extremity negative for DVT. 07/17/24 - S/p therapeutic bronchoscopy w/ RLL BAL - cleared mucous plugging from L6-L10 and R6-R10 See separate procedure note for details. Labs and imaging reviewed. Rest of plan as noted below. Plan: s/p intubation on 07/27/24 On mechanical ventilator; AC mode with RR 24, VT 400, PEEP 5, FiO2 30% Sedated on Versed, Fentanyl. Pressors if necessary for hemodynamic support Titrate to keep MAP above 65 mmHg/SBP above 90 mmHg. Monitor hemodynamics Bronchodilators PRN Continue antifungal Monitor renal function Monitor electrolytes. Supplement as necessary. Monitor ins and outs. GI prophylaxis. DVT prophylaxis. Prognosis: Poor given patient's multiple co-morbidities. Condition: Critical Rest of plan per hospitalist and other consultants. A total of 35 minutes of critical care time was spent reviewing the patient record, examining the patient, making a diagnostic and therapeutic plan, discussing this plan with the medical personnel, following up on diagnostic studies and following the patient for clinical stability excluding any and all procedures. At least 50% of this time was spent in direct, [id number] contact. Thank you Dr. Johnson, for allowing me to participate in this patient's care. Further recommendations will depend on the patient's clinical course. Please do not hesitate to contact me if you have any questions or concerns. This medical document was created using an electronic medical record system with [employer] dictation system. Although these documentations are being carefully reviewed, there may still be some phonetic and typographical changes. The errors are purely typographical, due to imperfection on the software program, and do not reflect any compromise in the patient's medical care. Dietary Evaluation Review Comments: 1) If GI is accessible consider Nepro 1.8 @ 20 ml/hr with current rate of propofol on board 2) If pt remains NPO >7days of NPO status, provide TPN to meet at least 75% of estimated needs 3) Advance pt diet when medically feasible to a Renal Standard diet modified per TAXONOMY TEACHER recommendations Expected Outcomes/Goals: 1) Pt to receive nutrition support within 7 days of NPO status 2) Pt diet to advance 3) F/U in 2-3 days Plan discussed with: Other (JACEK Patel) Critical Care Time(min): 35 EB DEJESUS MD Aug 04, 2024 23:30
[2024-08-05] VITALS (94 sets, daily range): BP systolic 98–187; BP diastolic 31–118; PULSE 98–115; RESP 16–38; TEMP 97.9; O2SAT 87–98
--- NOTE | 2024-08-05 10:57 | DVHPN2 ---
Progress Note - Dictate Date Seen: Aug 05, 2024 Has the PT tested + for MRSA If YES, has PT been informed?: No Medical Necessity Reason Pt with a Central, PICC or Fol: Yes The following are medically ne: Central Line Subjective Mr. Daniel altered gentleman with a history of hypertension, dyslipidemia, coronary artery disease, kidney cancer status post nephrectomy, kidney failure on hemodialysis, the patient was brought to the [facility]. I have seen and examined the patient, I have discussed with his nurse, daughter, the patient is on comfort care only Blood culture, 07/08/2024: E coli HIV & II Ab, 07/10/24: Negative ABG, 07/09/2024: Metabolic acidosis, 07/10/2024: Metabolic acidosis, WBC/HB/PLT/MCV, 07/19/2024: 13.1/9.6/65/105.9, 08/04/2024: 8.7/7.6/60/101.4 PT/INR/PTT, 07/11/2024: 35.6/3.63/38.4, 07/08/2024: 17.4/1.73/34.2, 07/28/2024: 17.1/1.7, 08/04/2024: 15.1/1.48/34.5 BUN/CR, 07/09/2024: 59/3.03 07/19/2024: 78/4.54 07/20/2024: 92/5.37 Lactic acid, 07/08/2019 5:3.1, 07/09/2024: 9.6, 07/10/24: 15.5, 07/11/2024: 449, 12.2, 07/29/2024: 43/2.02 HGB A1c, : 3.8 CPK 07/08/2019 5:114, 07/19/2024: 1579 TBI/AST/ALT/AP, 07/08/24, 0.6/244/561/105, 07/09/2024: 1.1/306/563/101, 07/19/2024: 12/212/261/138, 07/28/2024, 8.9/76/23/160. 08/03/2024: 11.8/335/111/326 Hepatitis panel, : Negative TG/HDL/LDL/HDL, 07/10/2024: 364/60/5/<5 Vitamin B12, 07/19/2024: >4000 Folic acid 07/19/2024: 9.12 TSH, 07/10/2024: 0.33 EEG 07/19/2024: inadequate but likely mildly abnormal EEG Chest x-ray, 07/08/2024: Bronchovascular crowding. Underlying mild pulmonary vascular congestion can not be excluded Obscuration of the left hemidiaphragm which may be from overlying cardiac silhouette with underlying pleural effusion /atelectasis / pneumonia not excluded. Chest x-ray, 07/09/2024: 1. Left lower lobe opacity may reflect atelectasis or mild pneumonia. 2. Mild interstitial pulmonary edema. 3. Small left pleural effusion. 4. Lines and tubes as above (Endotracheal tube terminates 1.8 cm above the quin) Chest x-ray, 07/17/2024: Endotracheal tube terminates 4.8 cm from the quin. Enteric tube is overlying the plane of the stomach Chest x-ray, 07/27/2024: Cardiomegaly with pulmonary congestion. Left basilar consolidation with small effusion Chest X-ray, 08/02/2024: 1. Stable position of the support lines and tubes. 2. Mild bilateral opacities are similar to the prior study which may reflect pulmonary vascular congestion CT head, 07/19/2024: Atrophy. No acute intracranial pathology vital signs Vital Sign Date Time Temp Pulse Resp B/P (MAP) Pulse Ox O2 Delivery O2 Flow Rate FiO2 08/05/24 09:52 110 26 125/58 08/05/24 09:34 90 Room Air* 0 21 08/04/24 20:00 98.0 98.0 Total Intake and Output 08/04/24 08/04/24 08/05/24 14:59 22:59 06:59 Intake Total 436 ml 665 ml Balance 436 ml 665 ml medications Current Medications Medications Dose Ordered Sig/Rey Route Start Time Stop Time Status Last Admin Dose Admin Vancomycin HCl 0 ml @ 0 mls/hr UD IV 07/08/24 17:00 Cancel Albumin Human 50 ml @ 100 mls/hr PRN PRN IV 07/13/24 08:30 Cancel Vancomycin HCl 0 ml @ 0 mls/hr UD IV 07/28/24 19:15 Cancel Enteral Nutritional Formula 1,000 ml 30ML/HR GT 08/01/24 06:45 Cancel Morphine Sulfate 1 mg Q1HP PRN IV 08/04/24 14:00 08/05/24 09:52 1 MG Lorazepam 1 mg Q1HP PRN IV 08/04/24 14:00 08/05/24 09:52 1 MG objective The patient is well-nourished and well-developed with no distress. MENTAL STATUS: Subjective CRANIAL NERVES: Pupils are equal, round and nonreactive, small. There are corneal reflexes and doll's eyes phenomenon. No signs of facial weakness. SENSATION: Responses to pain stimuli. MOTOR: Normal tone in the upper and lower extremity. Normal muscle bulk. No fasciculations. No spontaneous movement. REFLEXES: Deep tendon reflexes are symmetrical. No pathological reflexes. CEREBELLAR/COORDINATION: Deferred GAIT/STATION: deferred. laboratory and microbiology Laboratory Tests 08/04/24 02:55 08/03/24 03:15 Test 08/03/24 03:15 Range/Units Serum Glucose 85 74-106 mg/dL Problem List Altered mental status, Metabolic encephalopathy Hypoxic encephalopathy Toxic encephalopathy Hepatic encephalopathy Respiratory failure, reintubated Sepsis/septic shock Pneumonia Cellulitis Metabolic acidosis Coagulopathy secondary to liver failure Elevated liver function test Thrombocytopenia Macrocytic anemia Elevated liver function tests ICU myopathy Assessment/Plan Comfort care This medical document was created using an electronic medical record system with [employer] dictation system. Although this document has been carefully reviewed, there may still be some phonetic and typographical errors. These areas are purely typographical due to imperfections of the software programs, and do not reflect any compromise in the patient's medical care Dietary Evaluation Review Comments: 1) If GI is accessible consider Nepro 1.8 @ 20 ml/hr with current rate of propofol on board 2) If pt remains NPO >7days of NPO status, provide TPN to meet at least 75% of estimated needs 3) Advance pt diet when medically feasible to a Renal Standard diet modified per CHEMISTRY SPECIALIST recommendations Expected Outcomes/Goals: 1) Pt to receive nutrition support within 7 days of NPO status 2) Pt diet to advance 3) F/U in 2-3 days Plan discussed with: Daughter, Other SUMIT SANTAMARIA MD Aug 05, 2024 10:57
[2024-08-05] MEDS: LORazepam 2MG/ML-1ML VIAL IV PRN (12:01)
[2024-08-05] MEDS: MORPHINE SULFATE INJ 2 MG/ml SYRG IV PRN (12:01)
--- NOTE | 2024-08-05 12:12 | DVHPN2 ---
Subjective Extubated Non-Responsive Tachypneic Reviewed: Care Plan, H&P, Labs, Medications Changes from previous H/P or p: Changes General: Per HPI Eyes: No Pain, No Vision change, No Conjunctivae inflammation, No Eyelid inflammation, No Other, No Redness ENT: No Ear pain, No Ear discharge, No Nose pain, No Nose discharge, No Nose congestion, No Mouth pain, No Mouth swelling, No Throat pain, No Throat swelling, No Other Cardiovascular: Chest Pain Respiratory: Cough Gastrointestinal: No Nausea, No Vomiting, No Abdominal Pain, No Diarrhea, No Constipation, No Melena, No Hematochezia, No Other Genitourinary: No Dysuria, No Frequency, No Incontinence, No Hematuria, No Retention, No Other Musculoskeletal: other, leg pain Skin: Other Objective Vitals Vital Signs Date Time Temp Pulse Resp B/P (MAP) Pulse Ox O2 Delivery O2 Flow Rate FiO2 08/05/24 12:01 107 32 116/54 08/05/24 11:50 90 Room Air* 0 21 08/04/24 20:00 98.0 98.0 Intake/Output Intake and Output 08/05/24 07:00 Intake Total 1059 ml Balance 1059 ml IV Total 979 ml Tube Feeding 80 ml General Appearance: Other (Unresponsive) Lungs: Other (Bilateral rhonchi) Cardiovascular: Regular rate, Normal S1, Normal S2 Abdomen: Normal bowel sounds, Soft, No tenderness Extremities: Other (2+ edema all upper and lower extremities more pronounced on the left arm) Medications Current Medications Medications Dose Ordered Sig/Rey Route Start Time Stop Time Status Last Admin Dose Admin Vancomycin HCl 0 ml @ 0 mls/hr UD IV 07/08/24 17:00 Cancel Albumin Human 50 ml @ 100 mls/hr PRN PRN IV 07/13/24 08:30 Cancel Vancomycin HCl 0 ml @ 0 mls/hr UD IV 07/28/24 19:15 Cancel Enteral Nutritional Formula 1,000 ml 30ML/HR GT 08/01/24 06:45 Cancel Lorazepam 2 mg Q1HP PRN IV 08/05/24 11:45 08/05/24 12:01 2 MG Morphine Sulfate 2 mg Q1HP PRN IV 08/05/24 11:45 08/05/24 12:01 2 MG Laboratory Results Laboratory Tests 08/03/24 03:15 08/04/24 02:55 Microbiology Microbiology Date/Time Source Procedure Growth Status 07/27/24 16:00 Sputum Gram Stain - Final Resulted 07/27/24 16:00 Respiratory Culture - Preliminary Stenotrophomonas maltophilia Resulted 07/26/24 14:50 Blood Blood Culture - Final NO GROWTH AFTER 5 DAYS OF INCUBATION. Complete 07/09/24 19:55 Trachea Gram Stain - Final Complete 07/09/24 19:55 Trachea Respiratory Culture - Final Complete Assessment/Plan Assessment/Plan Acute hypoxic respiratory failure End-stage renal disease on hemodialysis Dilated cardiomyopathy Acute on chronic systolic and diastolic heart failure with ejection fraction 25% Status post severe sepsis with septic shock due to bacteremia and E coli ESBL Morbid obesity Thrombocytopenia Sepsis with septic shock Hypoalbuminemia CAD Mixed hyperlipidemia DM2 PLAN: Sepsis: Amphotericin IV Bactrim IV Pneumonia with Stenotrophomonas maltophilia Bacteremia with E. coli ESBL HD per nephrology LUE edema: Rule out DVT, doppler US Off pressors Taper sedation as tolerated Will meet with family for plan of care 08/03/24: Discussed with family at the bedside Explained to the family the poor prognosis DNR Family would like to go ahead with terminal weaning We will taper down the sedation Discontinue Versed 1st and then fentanyl and then we will do a terminal weaning once the family is ready in 1-2 days 08/04/24: DNR Plan to do terminal extubation tomorrow per family's request HD was not done today due to access difficulty 08/05/24: Downgrade to Med-Surg Comfort measures DC all labs and meds Morphine and Ativan prn for comfort Discussed with the family at the bedside Plan discussed with: Spouse, Daughter, Other My Orders Orders - DG AQUINO MD Procedure Category Date Status Time Code Status CODE 08/04/24 Transmitted 13:56 Lorazepam 2mg/Ml Inj PHA 08/05/24 In Process (Ativan Inj) 11:45 Morphine Sulfate PHA 08/05/24 In Process Injection 11:45 Date of Service: Aug 05, 2024 Billing Provider: DG AQUINO MD Common Visit Codes: NOT BILLABLE DG AQUINO MD Aug 05, 2024 12:12
--- NOTE | 2024-08-05 13:47 | DVHPN2 ---
Progress Note - Dictate Date Seen: Aug 05, 2024 Has the PT tested + for MRSA If YES, has PT been informed?: No Medical Necessity Reason Pt with a Central, PICC or Fol: Yes The following are medically ne: Central Line Subjective Patient was seen and evaluated in follow up in the ICU. Yesterday afternoon, the patient's family decided to proceed with terminal weaning with comfort measures. Patient was terminally extubated last night. Per [facility] [employer] patient is not a candidate for organ donation. vital signs Vital Sign Date Time Temp Pulse Resp B/P (MAP) Pulse Ox O2 Delivery O2 Flow Rate FiO2 08/05/24 12:01 107 32 116/54 08/05/24 11:50 90 Room Air* 0 21 08/04/24 20:00 98.0 98.0 Total Intake and Output 08/04/24 08/04/24 08/05/24 15:00 23:00 07:00 Intake Total 436 ml 623 ml Balance 436 ml 623 ml medications Current Medications Medications Dose Ordered Sig/Rey Route Start Time Stop Time Status Last Admin Dose Admin Vancomycin HCl 0 ml @ 0 mls/hr UD IV 07/08/24 17:00 Cancel Albumin Human 50 ml @ 100 mls/hr PRN PRN IV 07/13/24 08:30 Cancel Vancomycin HCl 0 ml @ 0 mls/hr UD IV 07/28/24 19:15 Cancel Enteral Nutritional Formula 1,000 ml 30ML/HR GT 08/01/24 06:45 Cancel Lorazepam 2 mg Q1HP PRN IV 08/05/24 11:45 08/05/24 12:01 2 MG Morphine Sulfate 2 mg Q1HP PRN IV 08/05/24 11:45 08/05/24 12:01 2 MG objective GENERAL: Awake. Morbidly obese. LUNGS: Decreased breath sounds. CARDIOVASCULAR: Heart sounds are good. ABDOMEN: Soft. EXT: BLE edema. laboratory and microbiology Laboratory Tests 08/04/24 02:55 08/03/24 03:15 Test 08/03/24 03:15 Range/Units Serum Glucose 85 74-106 mg/dL Problem List Hypotension secondary to septic shock. Coronary artery disease status post CABG in 2021. History of hypertension. Hyperlipidemia. Hyperkalemia. Acute anemia. Thrombocytopenia. Transaminitis. End-stage renal disease on hemodialysis. Renal cell carcinoma status post left nephrectomy. COPD. Asthma. Morbid obesity. Dilated cardiomyopathy. Metabolic encephalopathy. Assessment/Plan Continued all current supportive medical care. Comfort measures with Ativan and Morphine. Additional plan as per the hospital course. Critical care time of 45 minutes provided to include time spent evaluation of patient at bedside, when appropriate patient/family education for diagnosis, treatment plan, review of pertinent medical information and discussion of care with specialty providers and PCP. Dietary Evaluation Review Comments: 1) If GI is accessible consider Nepro 1.8 @ 20 ml/hr with current rate of propofol on board 2) If pt remains NPO >7days of NPO status, provide TPN to meet at least 75% of estimated needs 3) Advance pt diet when medically feasible to a Renal Standard diet modified per DIRECTOR OF RETENTION recommendations Expected Outcomes/Goals: 1) Pt to receive nutrition support within 7 days of NPO status 2) Pt diet to advance 3) F/U in 2-3 days Plan discussed with: Other FRIDA SIMMONS MD Aug 05, 2024 12:10
--- NOTE | 2024-08-05 21:21 | DVHPN2 ---
Consult Progress Note Objective vital signs Vital Sign Date Time Temp Pulse Resp B/P (MAP) Pulse Ox O2 Delivery O2 Flow Rate FiO2 08/05/24 20:30 99 20 130/49 (76) 93 08/05/24 20:00 Room Air* 0 21 08/04/24 20:00 98.0 98.0 Total Intake and Output 08/04/24 08/04/24 08/05/24 15:00 23:00 07:00 Intake Total 436 ml 623 ml Balance 436 ml 623 ml medications Current Medications Medications Dose Ordered Sig/Rey Route Start Time Stop Time Status Last Admin Dose Admin Vancomycin HCl 0 ml @ 0 mls/hr UD IV 07/08/24 17:00 Cancel Albumin Human 50 ml @ 100 mls/hr PRN PRN IV 07/13/24 08:30 Cancel Vancomycin HCl 0 ml @ 0 mls/hr UD IV 07/28/24 19:15 Cancel Enteral Nutritional Formula 1,000 ml 30ML/HR GT 08/01/24 06:45 Cancel Lorazepam 2 mg Q1HP PRN IV 08/05/24 11:45 08/05/24 16:53 2 MG Morphine Sulfate 2 mg Q1HP PRN IV 08/05/24 11:45 08/05/24 16:55 2 MG laboratory and microbiology Laboratory Tests 08/04/24 02:55 08/03/24 03:15 Test 08/03/24 03:15 Range/Units Serum Glucose 85 74-106 mg/dL Problem List/Assessment/Plan Problem List/Assessment/Plan ID Problem List: - Septic shock - Necrotizing fasciitis of right lower extremity - End-stage renal disease on hemodialysis - Kidney cancer status post nephrectomy - Coronary artery disease - Hyperlipidemia - Status post CABG - ESBL Bacteria - Pneumonia Assessment This is a 58 y.o. male with a past medical history of kidney cancer status post nephrectomy, end-stage renal disease on hemodialysis, coronary artery disease, hyperlipidemia, and status post CABG, who presents with chest pain, fever, and right thigh tenderness concerning for necrotizing fasciitis. On admission, the patient had a temperature of 104F, hypotension (BP 78/45 mmHg), lactic acid 3.8 mmol/L, elevated AST (3044 U/L) and ALT (560 U/L), WBC count 37,000/mm, hemoglobin 7.5 g/dL, and platelets 62,000/mm. Physical examination notable for right thigh tenderness and generalized weakness. Initial imaging included CT scan of the right thigh showing subcutaneous edema with no gas in soft tissues and small bilateral knee effusions. Chest CT revealed bronchiovascular crowding; underlying pulmonary vascular condition cannot be excluded. Blood cultures are preliminarily positive for gram-negative rods. Respiratory cultures show gram-positive issa. An anaerobic bottle was positive for gram- negative rods. Laboratory studies reveal persistent elevation of liver enzymes with AST 3009 U/L and ALT 1976 U/L. Lactic acid increased to 15 mmol/L, platelets decreased to 32,000/mm. Peripheral smear shows Browning cells. Potassium is elevated at 6 mEq/L. The patient is intubated and sedated for acute hypoxic respiratory failure and altered mental status. 07/10: Undergoing ultra filtration and whitecount is elevated. Pressures are starting to come down since initiating meropenem and platelets are still low at 57 07/11: has an elevated whitecount of 19.1 , LFTs and renal function continue to worsen. blood cultures show ESBL E Coli . chest xray shows a left small bascular airspace disease . Fibrinogen is 433 appears to be adequate and patient is not having any additional signs of bleed . hemoglobin is stable at 8.4 and can hold off on additional transfusions outside of keeping hemoglobin above 7 and platelets above 50 07/12: whitecount is 28.43 , liver enzymes remain elevated at 2955 ALT and 2723 AST , as [place] [id number] 07/24: extubated 2 days ago tolerated cpap on trickle feeds remains somewhat altered leukocytosis rising, restarted on pressors for last 2 days sacral ulcer present, thigh cellulitis resolved, respiratory culture w/ filamentus fungi 06/25: high fevers 06/26: thick mendoza secretions patient reintubated 07/28: white count is 13.6 , repeat blood cultures show young colonies 07/29: white count is 11.2 , respiratory cultures from bronchoscopy shows gram negative rods 07/30: white count is normalized , respiratory culture shows Stenotrophomonas 07/31: appears to be clinically improving , growing Stenotrophomonas on respiratory cultures that are sensitive to Bactrim , tolerating dialysis 2: patient appears to be clinically responding to antibiotic therapy with no signs of intolerance to Bactrim 2/3: doppler was done to the left upper extremity and no DVT was found , on BAl culture 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 which are all potential causes of pneumonia in imunocompromised patients and susceptibilities pending Plan: -Start Mycofungen 150 milligrams daily , at this both filamentous fungi organisms are likely to be covered - work with pharmacy to acquire posaconazole when patient is able to tolerate oral therapy - patient should continue antifungal treatment for at least 12 weeks - Continue Bactrim 3 milligrams per kilogram 1x a day after given dialysis - follow up on sensitivity of fungi on sputum culture and adjust antifungal treatment based on results - monitor LFTs daily - keep MAP goal to 65 for patient to maintain blood pressure support - check blood culture to confirm clearance of bacteremia - STOP amphotericin B - continue vancomycin empirically in setting of septic shock - Surgical Consultation: Agree with general surgeon that clinical picture favors hematoma vs cellulitis , no signs of necrotizing infection at this time - Supportive Care: Continue vasopressor support with norepinephrine (Levophed) and epinephrine as needed for septic shock. - Laboratory Monitoring: Recheck laboratory values including CBC, CMP, lactic acid, and coagulation profile. Monitor liver function tests. - Renal Management: Coordinate with nephrology for hemodialysis management. - Isolation Precautions: Standard precautions. Authorized and Performed by: michelle melendrez Total critical care time: Approximately 72 minutes Due to a high probability of clinically significant, life threatening deterioration, the patient required my highest level of preparedness to intervene emergently and I personally spent this critical care time directly and personally managing the patient. This critical care time included obtaining a history; examining the patient; pulse oximetry; ordering and review of studies; arranging urgent treatment with development of a management plan; evaluation of patient's response to treatment; frequent reassessment; and, discussions with other providers. This critical care time was performed to assess and manage the high probability of imminent, life-threatening deterioration that could result in multi-organ failure. It was exclusive of separately billable procedures and treating other patients and teaching time. Dietary Evaluation Review Comments: 1) If GI is accessible consider Nepro 1.8 @ 20 ml/hr with current rate of propofol on board 2) If pt remains NPO >7days of NPO status, provide TPN to meet at least 75% of estimated needs 3) Advance pt diet when medically feasible to a Renal Standard diet modified per SQL CONSULTANT recommendations Expected Outcomes/Goals: 1) Pt to receive nutrition support within 7 days of NPO status 2) Pt diet to advance 3) F/U in 2-3 days MICHELLE MELENDREZ MD Aug 05, 2024 21:21
--- NOTE | 2024-08-05 22:28 | DVHPN2 ---
Progress Note - Dictate Date Seen: Aug 05, 2024 Has the PT tested + for MRSA If YES, has PT been informed?: No Medical Necessity Reason Pt with a Central, PICC or Fol: Yes The following are medically ne: Central Line Subjective Patient underwent terminal wean last night His lines have been discontinued Patient has been downgraded to the floor vital signs Vital Sign Date Time Temp Pulse Resp B/P (MAP) Pulse Ox O2 Delivery O2 Flow Rate FiO2 08/05/24 20:30 99 20 130/49 (76) 93 08/05/24 20:00 Room Air* 0 21 08/04/24 20:00 98.0 98.0 Total Intake and Output 08/04/24 08/04/24 08/05/24 15:00 23:00 07:00 Intake Total 436 ml 623 ml Balance 436 ml 623 ml medications Current Medications Medications Dose Ordered Sig/Rey Route Start Time Stop Time Status Last Admin Dose Admin Vancomycin HCl 0 ml @ 0 mls/hr UD IV 07/08/24 17:00 Cancel Albumin Human 50 ml @ 100 mls/hr PRN PRN IV 07/13/24 08:30 Cancel Vancomycin HCl 0 ml @ 0 mls/hr UD IV 07/28/24 19:15 Cancel Enteral Nutritional Formula 1,000 ml 30ML/HR GT 08/01/24 06:45 Cancel Lorazepam 2 mg Q1HP PRN IV 08/05/24 11:45 08/05/24 16:53 2 MG Morphine Sulfate 2 mg Q1HP PRN IV 08/05/24 11:45 08/05/24 16:55 2 MG objective GENERAL: Extubated on face mask LUNGS: Decreased breath sounds. CARDIOVASCULAR: Heart sounds are good. ABDOMEN: Soft. Nontender EXT: BLE edema. laboratory and microbiology Laboratory Tests 08/04/24 02:55 08/03/24 03:15 Test 08/03/24 03:15 Range/Units Serum Glucose 85 74-106 mg/dL Problems(with codes): (1) E coli bacteremia (2) Jaundice (3) Coffee ground emesis (4) Necrotizing fasciitis of lower leg (5) Elevated liver enzymes (6) End-stage renal disease on hemodialysis (7) Acute kidney failure, unspecified (8) Chronic kidney disease, unspecified (9) Severe anemia (10) Sepsis, unspecified organism Prognosis Plan Family has decided to proceed with comfort measures only Continue supportive care Prognosis is poor and guarded Dietary Evaluation Review Comments: 1) If GI is accessible consider Nepro 1.8 @ 20 ml/hr with current rate of propofol on board 2) If pt remains NPO >7days of NPO status, provide TPN to meet at least 75% of estimated needs 3) Advance pt diet when medically feasible to a Renal Standard diet modified per FOREPART LASTER recommendations Expected Outcomes/Goals: 1) Pt to receive nutrition support within 7 days of NPO status 2) Pt diet to advance 3) F/U in 2-3 days Plan discussed with: Other (ICU Nurse) VIVIANA SHI MD Aug 05, 2024 22:28
--- NOTE | 2024-08-05 22:58 | DVHPN2 ---
Progress Note - Dictate Date Seen: Aug 05, 2024 Has the PT tested + for MRSA If YES, has PT been informed?: No Medical Necessity Reason Pt with a Central, PICC or Fol: Yes The following are medically ne: Central Line Subjective Patient seen and examined at bedside. S/p compassionate extubation, on room air. Overnight events reviewed. vital signs Vital Sign Date Time Temp Pulse Resp B/P (MAP) Pulse Ox O2 Delivery O2 Flow Rate FiO2 08/05/24 20:45 97.9 100 20 123/85 (98) 98 97.9 08/05/24 20:00 Room Air* 0 21 Total Intake and Output 08/04/24 08/04/24 08/05/24 15:00 23:00 07:00 Intake Total 436 ml 623 ml Balance 436 ml 623 ml medications Current Medications Medications Dose Ordered Sig/Rey Route Start Time Stop Time Status Last Admin Dose Admin Vancomycin HCl 0 ml @ 0 mls/hr UD IV 07/08/24 17:00 Cancel Albumin Human 50 ml @ 100 mls/hr PRN PRN IV 07/13/24 08:30 Cancel Vancomycin HCl 0 ml @ 0 mls/hr UD IV 07/28/24 19:15 Cancel Enteral Nutritional Formula 1,000 ml 30ML/HR GT 08/01/24 06:45 Cancel Lorazepam 2 mg Q1HP PRN IV 08/05/24 11:45 08/05/24 16:53 2 MG Morphine Sulfate 2 mg Q1HP PRN IV 08/05/24 11:45 08/05/24 16:55 2 MG objective Gen.: Patient lying in bed in no apparent distress. On room air. Head: Normocephalic, atraumatic. Eyes: EOMI/PERRLA. Ears: Normal hearing. Normal anatomy. Neck/trachea: Trachea midline, supple. Nose: Normal external anatomy. Mouth: Moist mucous membranes. Chest: Decreased air entry bilaterally. No wheezing or rhonchi. Cardiovascular: Positive S1, positive S2. Regular rate and rhythm. Abdomen: Positive bowel sounds in all 4 quadrants. Soft, non-tender, non- distended. : Deferred. Rectal: Deferred. Skin: Warm, dry. Intact. Extremities: 2+ radial pulses bilaterally. No lower extremity edema. Neuro: Off sedation. No gross motor or sensory deficits. Cranial nerves II through XII intact. Gait not assessed laboratory and microbiology Laboratory Tests 08/04/24 02:55 08/03/24 03:15 Test 08/03/24 03:15 Range/Units Serum Glucose 85 74-106 mg/dL Assessment/Plan Impression: Acute hypoxic respiratory failure On mechanical ventilator Pulmonary edema Necrotizing fasciitis Septic shock Morbid obesity Events: S/p compassionate extubation On room air. Oxygen saturation 87% to 92%. Off sedation DNR/comfort measures Supportive care Off pressors Monitor hemodynamics Monitor hemoglobin Tube feeds for nutritional support Monitor platelet count Monitor WBC Head of bed elevation Aspiration precautions. Wound care HD per Nephrology - discontinued Monitor renal function Monitor electrolytes. Supplement as necessary. Nephrology recommendations appreciated S/p compassionate extubation Poor prognosis, poor chance of meaningful recovery. U/S Doppler of left upper extremity negative for DVT. 07/17/24 - S/p therapeutic bronchoscopy w/ RLL BAL - cleared mucous plugging from L6-L10 and R6-R10 See separate procedure note for details. Labs and imaging reviewed. Rest of plan as noted below. Plan: S/p compassionate extubation On room air. Off sedation Off pressors Comfort measures Supportive care Bronchodilators PRN HD per Nephrology - discontinued Monitor renal function Monitor electrolytes. Supplement as necessary. Monitor ins and outs. GI prophylaxis. DVT prophylaxis. Prognosis: Poor given patient's multiple co-morbidities. Rest of plan per hospitalist and other consultants. Thank you Dr. Johnson, for allowing me to participate in this patient's care. Further recommendations will depend on the patient's clinical course. Please do not hesitate to contact me if you have any questions or concerns. This medical document was created using an electronic medical record system with [employer] dictation system. Although these documentations are being carefully reviewed, there may still be some phonetic and typographical changes. The errors are purely typographical, due to imperfection on the software program, and do not reflect any compromise in the patient's medical care. Dietary Evaluation Review Comments: 1) If GI is accessible consider Nepro 1.8 @ 20 ml/hr with current rate of propofol on board 2) If pt remains NPO >7days of NPO status, provide TPN to meet at least 75% of estimated needs 3) Advance pt diet when medically feasible to a Renal Standard diet modified per CUTTING MACHINE OPERATOR recommendations Expected Outcomes/Goals: 1) Pt to receive nutrition support within 7 days of NPO status 2) Pt diet to advance 3) F/U in 2-3 days Plan discussed with: Other (JACEK Kurtz) EB DEJESUS MD Aug 05, 2024 22:58
[2024-08-06] VITALS (17 sets, daily range): BP systolic 110–155; BP diastolic 36–85; PULSE 95–117; RESP 16–26; TEMP 96–98.9; O2SAT 89–100
--- NOTE | 2024-08-06 11:07 | DVHDS2 ---
Discharge Summary Date of Admission Jul 09, 2024 at 03:08 Date of Discharge: Aug 06, 2024 Labs/Diagnostic Data: Laboratory Results Test 08/04/24 11:36 08/04/24 07:45 08/04/24 02:55 08/03/24 03:15 POC Glucose 90 mg/dl (70-106) Blood Gas Specimen Type Arterial Blood Gas Sample Site Arterial line Blood Gas Patient Temperature 37.0 Arterial Blood Date Drawn [id number] Arterial Blood pH 7.398 (7.350-7.450) Arterial Blood Partial Pressure CO2 38.4 mmHg (35.0-48.0) Arterial Blood Partial Pressure O2 76.5 mmHg (83.0-108.0) Arterial Blood HCO3 23.1 mmol/L (21.0-28.0) Arterial Blood Oxygen Saturation 93.3 % (94.0-98.0) Arterial Blood Base Excess -1.5 mmol/L (-2.0-3.0) Arterial Blood Oxyhemoglobin 91.3 % (94.0-98.0) Arterial Blood Carboxyhemoglobin 1.8 % (0.5-1.5) Arterial Blood Methemoglobin 0.3 % (0.0-1.5) Tima Test N/a Blood Gas Total Hemoglobin 7.90 g/dL (13.5-17.5) Blood Gas Set Respiration Rate 24.0 Blood Gas Modality Vent - ac FiO2 % 30.0 Blood Gas Tidal Volume 400.0 Blood Gas PEEP or CPAP 5.0 Blood Gas Critical Value Read Back Yes White Blood Count 8.7 10^3/uL (4.4-10.8) Red Blood Count 2.24 10^6/uL (4.5-5.90) Hemoglobin 7.6 g/dL (13.5-17.5) Hematocrit 22.7 % (41.0-53.0) Mean Corpuscular Volume 101.4 fL (80.0-100.0) Mean Corpuscular Hemoglobin 34.2 pg (28.0-32.0) Mean Corpuscular Hemoglobin Concent 33.7 g/dL (32.0-36.0) Red Cell Distribution Width 22.8 % (11.8-14.3) Platelet Count 60 10^3/uL (140-450) Mean Platelet Volume 10.2 fL (6.9-10.8) Neutrophils (%) (Auto) % (37.0-80.0) Lymphocytes (%) (Auto) % (10.0-50.0) Monocytes (%) (Auto) % (0.0-12.0) Basophils (%) (Auto) % (0.0-2.0) Neutrophils # (Auto) 10 ^3/uL (1.6-8.6) Lymphocytes # (Auto) 10 ^3/uL (0.4-5.4) Monocytes # (Auto) 10 ^3/uL (0-1.3) Differential Total Cells Counted 100.0 (100) Neutrophils % (Manual) 79 (37.0-80.0) Band Neutrophils % (Manual) 2 Lymphocytes % (Manual) 7 (10.0-50.0) Monocytes % (Manual) 9 (0-12) Eosinophils % (Manual) 1 (0-7) Basophils % (Manual) 0 (0.0-2.0) Metamyelocytes % (manual) 1 Myelocytes % (Manual) 1 Promyelocytes % (Manual) 0 Blast Cells % (Manual) 0 Reactive Lymphocytes 0 Platelet Estimate Decreased Large Platelets Few Anisocytosis (manual) Slight Target Cells Few Schistocytes Few Prothrombin Time 15.1 sec (9.3-11.8) Prothrombin Time INR 1.48 (0.9-1.15) Activated Partial Thromboplast Time 34.5 SEC (24.5-34.5) Total Bilirubin 11.3 mg/dL (0.2-1.0) Direct Bilirubin 9.0 mg/dL (<0.3) Aspartate Amino Transferase (AST) 414 U/L (13-40) Alanine Aminotransferase (ALT) 154 U/L (7-40) Alkaline Phosphatase 356 U/L (46-116) Total Protein 5.8 g/dL (5.7-8.2) Albumin 3.3 g/dL (3.2-4.8) Stomatocytes Few Sodium Level 137 mmol/L (136-145) Potassium Level 4.2 mmol/L (3.5-5.1) Chloride Level 100 mmol/L (98-107) Carbon Dioxide Level 24 mmol/L (20-31) Anion Gap 13 (5-15) Blood Urea Nitrogen 39 mg/dL (9-23) Creatinine 2.83 mg/dL (0.700-1.30) Glomerular Filtration Rate Calc 25 mL/min (>90) BUN/Creatinine Ratio 13.8 (10.0-20.0) Serum Glucose 85 mg/dL (74-106) Calcium Level 8.8 mg/dL (8.7-10.4) Phosphorus Level 3.9 mg/dL (2.4-5.1) Magnesium Level 2.2 mg/dL (1.6-2.6) Test 08/02/24 21:28 08/02/24 18:09 08/01/24 07:17 07/31/24 06:56 Blood Gas Spontaneous Rate 24 Blood Gas Inspiratory Pressure 30.0 Miscellaneous Referred Test (Rm Tmp Sent to [facility] Bl Gas Inspiratory/Expiratory Ratio 1:2.7 Specimen Drawn By lisa alvarez Blood Gas Notified Whom ana Montanez Blood Gas Notified Time [id number] Blood Gas Notified By jone Donovan Test 07/31/24 03:20 07/30/24 03:23 07/30/24 03:22 07/29/24 11:14 Eosinophils (%) (Auto) 0.9 % (0.0-7.0) Eosinophils # (Auto) 0.1 10 ^3/uL (0-0.8) Basophils # (Auto) 0 10 ^3/uL (0-0.2) Nucleated Red Blood Cells 0.1 % Haptoglobin 115 mg/dL (29-370) Reticulocyte Count (auto) 1.72 % (0.5-1.5) Random Vancomycin Level 12.2 ug/mL (5-10) Miscellaneous Referred Test (Refrg) Sent to [facility] Test 07/29/24 03:00 07/28/24 20:06 07/28/24 03:10 07/27/24 16:10 Triglycerides Level 244 mg/dL (< 150) Fibrinogen 494 mg/dL (177-375) Ferritin 1782.2 ng/mL (22-322) Macrocytosis Slight Lactic Acid Level 1.8 mmol/L (0.4-2.0) Test 07/27/24 08:20 07/27/24 02:00 07/26/24 21:53 07/23/24 06:20 Blood Gas Pressure Support 4 Blood Gas EPAP 8 Blood Gas IPAP 12 Blood Gas Spontaneous Tidal Volume 456 Gastric Fluid pH 4.0 Gastric Fluid Occult Blood Positive (Negative) Ammonia < 10 umol/L (11-32) Test 07/19/24 21:24 07/17/24 14:23 07/14/24 03:08 07/13/24 03:50 Creatine Kinase 1579 U/L (46-171) Vitamin B12 Level > 4000 pg/mL (211-911) Folic Acid 9.12 ng/mL (>5.38) Blood Gas Comments Tear Drop Cells Moderate Iron Level 136 ug/dL (65-175) Total Iron Binding Capacity 186 ug/dL (250-425) Percent Iron Saturation 73.1 % (20-55) Test 07/11/24 03:26 07/10/24 22:02 07/10/24 19:58 07/10/24 10:11 Smudge Cells 2 /100 WBC D-Dimer, Quantitative 11.78 mg/L FEU (0.0-0.49) Lactate Dehydrogenase > 4500 U/L (120-246) HIV (1&2) Antibody Negative (Negative) Microcytosis Slight Test 07/10/24 04:01 07/09/24 16:30 07/09/24 16:27 07/08/24 17:54 Ovalocytes Few Elizabeth Cells Few Hemoglobin A1c < 3.8 % A1C (<5.7) Cholesterol Level 60 mg/dL (< 200) LDL Cholesterol 5 mg/dL (< 100) HDL Cholesterol < 5 mg/dL (40-59) Thyroid Stimulating Hormone (TSH) 0.33 uIU/mL (0.55-4.78) B-Type Natriuretic Peptide > 5000.00 pg/mL (0-100) Hepatitis A IgM Antibody Negative Hepatitis B Surface Antigen Negative (Negative) Hepatitis B Core IgM Antibody Negative (Negative) Hepatitis C Antibody Negative (Negative) Blood Gas Liter Flow 2.00 Troponin I High Sensitivity 33 ng/L (</=54) Test 07/08/24 15:07 Influenza Type A Antigen Negative (Negative) Influenza Type B Antigen Negative (Negative) SARS-CoV-2 Antigen (Rapid) Negative (NEGATIVE) Other Laboratory Tests 08/04/24 02:55 08/03/24 03:15 Brief Hx & Hospital Course: Final diagnoses: Acute hypoxic respiratory failure End-stage renal disease on hemodialysis Dilated cardiomyopathy Acute on chronic systolic and diastolic heart failure with ejection fraction 25% Status post severe sepsis with septic shock due to bacteremia and E coli ESBL Morbid obesity Thrombocytopenia Sepsis with septic shock Hypoalbuminemia CAD Mixed hyperlipidemia DM2 He was treated aggressively for cellulitis of the right thigh resulting in septic shock with broad spectrum antibiotics, dialysis, mechanical ventilation He was able to extubated after the sepsis improved however he had to be intubated again He became septic again, treated again with antibiotics, but he did not show significant improvement Overall he remained sick, edematous, HD was done but was not effective, his left arm access went bad, and mentally did not improve. Family were consulted and updated, they stated he did not want correction ventilator or tracheostomy done and wanted comfort measures We explained the poor prognosis to the family He was terminally extubated and now he is unresponsive Comfort care is given No HD or aggressive treatments Consult hospice DC home on Hospice for comfort care Family is in agreement Condition at Discharge: Poor Final Diagnosis/Problems List Acute hypoxic respiratory failure End-stage renal disease on hemodialysis Dilated cardiomyopathy Acute on chronic systolic and diastolic heart failure with ejection fraction 25% Status post severe sepsis with septic shock due to bacteremia and E coli ESBL Morbid obesity Thrombocytopenia Sepsis with septic shock Hypoalbuminemia CAD Mixed hyperlipidemia DM2 Discharge Disposition: Hospice - Home SNF Discharge Will this Physician continue t: No Discharge Statement: "Patient was advised to return to the ER or call 911 if any headaches, dizziness, shortness of breath, chest pain, abdominal pain, bleeding, fevers, or worsening of medical condition. Patient was counseled about treatment plan, medications, possible side effects, patientverbalized understanding. All questions were answered to the best of my ability. This discharge took greater then 30 minutes in planning, reviewing documentation, counseling the patient, and discussing with other team members." ASSESSMENT ASSESSMENT Assessment Date of Service: Aug 06, 2024 Billing Provider: DG AQUINO MD Common Visit Codes: NOT BILLABLE DG AQUINO MD Aug 06, 2024 11:07
--- NOTE | 2024-08-06 16:19 | DVHPN2 ---
Consult Progress Note Date Seen: Aug 03, 2024 Subjective Patient reports: Other (was tachycardic , tykipnick and FIO2 30% , unable to ween off vent with swallowing impaired and unresponsive to sedation weep as well as vent CPAP trials . no large rashes , right lower extremity is less swollen ) Objective vital signs Vital Sign Date Time Temp Pulse Resp B/P (MAP) Pulse Ox O2 Delivery O2 Flow Rate FiO2 08/06/24 12:44 97.5 117 20 155/79 (104) 89 97.5 08/06/24 10:10 Room Air* 0 21 medications Current Medications Medications Dose Ordered Sig/Rey Route Start Time Stop Time Status Last Admin Dose Admin Vancomycin HCl 0 ml @ 0 mls/hr UD IV 07/08/24 17:00 Cancel Albumin Human 50 ml @ 100 mls/hr PRN PRN IV 07/13/24 08:30 Cancel Vancomycin HCl 0 ml @ 0 mls/hr UD IV 07/28/24 19:15 Cancel Enteral Nutritional Formula 1,000 ml 30ML/HR GT 08/01/24 06:45 Cancel Lorazepam 2 mg Q1HP PRN IV 08/05/24 11:45 08/06/24 04:33 2 MG Morphine Sulfate 2 mg Q1HP PRN IV 08/05/24 11:45 08/06/24 10:07 2 MG PHYSICAL EXAM: - GENERAL: Alert and oriented x 3. No acute distress. Well-nourished. - EYES: EOMI. Anicteric. - HENT: Moist mucous membranes. No scleral icterus. No cervical lymphadenopathy. - LUNGS: Clear to auscultation bilaterally. No accessory muscle use. - CARDIOVASCULAR: Regular rate and rhythm. No murmur. No JVD. - ABDOMEN: Soft, non-tender and non-distended. No palpable masses. - EXTREMITIES: No edema. Non-tender.?SKIN: No rashes or lesions. Warm. - NEUROLOGIC: No focal neurological deficits. CN II-XII grossly intact, but not individually tested - PSYCHIATRIC: Cooperative. Appropriate mood and affect laboratory and microbiology Laboratory Tests 08/04/24 02:55 08/03/24 03:15 Test 08/03/24 03:15 Range/Units Serum Glucose 85 74-106 mg/dL Problem List/Assessment/Plan Problems(with codes): (1) E coli bacteremia (2) Coffee ground emesis (3) Necrotizing fasciitis of lower leg (4) Elevated liver enzymes (5) End-stage renal disease on hemodialysis (6) Acute kidney failure, unspecified (7) Chronic kidney disease, unspecified (8) Severe anemia (9) Sepsis, unspecified organism (10) Generalized weakness Problem List/Assessment/Plan ID Problem List: - Septic shock - Necrotizing fasciitis of right lower extremity - End-stage renal disease on hemodialysis - Kidney cancer status post nephrectomy - Coronary artery disease - Hyperlipidemia - Status post CABG - ESBL Bacteria - Pneumonia Assessment This is a 58 y.o. male with a past medical history of kidney cancer status post nephrectomy, end-stage renal disease on hemodialysis, coronary artery disease, hyperlipidemia, and status post CABG, who presents with chest pain, fever, and right thigh tenderness concerning for necrotizing fasciitis. On admission, the patient had a temperature of 104F, hypotension (BP 78/45 mmHg), lactic acid 3.8 mmol/L, elevated AST (3044 U/L) and ALT (560 U/L), WBC count 37,000/mm, hemoglobin 7.5 g/dL, and platelets 62,000/mm. Physical examination notable for right thigh tenderness and generalized weakness. Initial imaging included CT scan of the right thigh showing subcutaneous edema with no gas in soft tissues and small bilateral knee effusions. Chest CT revealed bronchiovascular crowding; underlying pulmonary vascular condition cannot be excluded. Blood cultures are preliminarily positive for gram-negative rods. Respiratory cultures show gram-positive issa. An anaerobic bottle was positive for gram- negative rods. Laboratory studies reveal persistent elevation of liver enzymes with AST 3009 U/L and ALT 1976 U/L. Lactic acid increased to 15 mmol/L, platelets decreased to 32,000/mm. Peripheral smear shows Elizabeth cells. Potassium is elevated at 6 mEq/L. The patient is intubated and sedated for acute hypoxic respiratory failure and altered mental status. 07/10: Undergoing ultra filtration and whitecount is elevated. Pressures are starting to come down since initiating meropenem and platelets are still low at 57 1: has an elevated whitecount of 19.1 , LFTs and renal function continue to worsen. blood cultures show ESBL E Coli . chest xray shows a left small bascular airspace disease . Fibrinogen is 433 appears to be adequate and patient is not having any additional signs of bleed . hemoglobin is stable at 8.4 and can hold off on additional transfusions outside of keeping hemoglobin above 7 and platelets above 50 07/12: whitecount is 28.43 , liver enzymes remain elevated at 2955 ALT and 2723 AST , [place] [id number] 07/24: extubated 2 days ago tolerated cpap on trickle feeds remains somewhat altered leukocytosis rising, restarted on pressors for last 2 days sacral ulcer present, thigh cellulitis resolved, respiratory culture w/ filamentus fungi 06/25: high fevers 06/26: thick mendoza secretions patient reintubated 07/28: white count is 13.6 , repeat blood cultures show young colonies 07/29: white count is 11.2 , respiratory cultures from bronchoscopy shows gram negative rods 07/30: white count is normalized , respiratory culture shows Stenotrophomonas 07/31: appears to be clinically improving , growing Stenotrophomonas on respiratory cultures that are sensitive to Bactrim , tolerating dialysis 08/01: patient appears to be clinically responding to antibiotic therapy with no signs of intolerance to Bactrim 08/02: doppler was done to the left upper extremity and no DVT was found , on BAl culture 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 which are all potential causes of pneumonia in imunocompromised patients and susceptibilities pending 08/03: whitecount is 10.8 , patient appears to not be showing any signs for ongoing sepsis Plan: -Continue Mycofungen 150 milligrams daily , at this both filamentous fungi organisms are likely to be covered - work with pharmacy to acquire posaconazole when patient is able to tolerate oral therapy - patient should continue antifungal treatment for at least 12 weeks - Continue Bactrim 3 milligrams per kilogram 1x a day after given dialysis - follow up on sensitivity of fungi on sputum culture and adjust antifungal treatment based on results - monitor LFTs daily - keep MAP goal to 65 for patient to maintain blood pressure support - check blood culture to confirm clearance of bacteremia - continue vancomycin empirically in setting of septic shock - Surgical Consultation: Agree with general surgeon that clinical picture favors hematoma vs cellulitis , no signs of necrotizing infection at this time - Supportive Care: Continue vasopressor support with norepinephrine (Levophed) and epinephrine as needed for septic shock. - Laboratory Monitoring: Recheck laboratory values including CBC, CMP, lactic acid, and coagulation profile. Monitor liver function tests. - Renal Management: Coordinate with nephrology for hemodialysis management. - Isolation Precautions: Standard precautions. Authorized and Performed by: sangeetha melendrez Total critical care time: Approximately 72 minutes Due to a high probability of clinically significant, life threatening deterioration, the patient required my highest level of preparedness to intervene emergently and I personally spent this critical care time directly and personally managing the patient. This critical care time included obtaining a history; examining the patient; pulse oximetry; ordering and review of studies; arranging urgent treatment with development of a management plan; evaluation of patient's response to treatment; frequent reassessment; and, discussions with other providers. This critical care time was performed to assess and manage the high probability of imminent, life-threatening deterioration that could result in multi-organ failure. It was exclusive of separately billable procedures and treating other patients and teaching time. Plan discussed with: Other Dietary Evaluation Review Comments: 1) If GI is accessible consider Nepro 1.8 @ 20 ml/hr with current rate of propofol on board 2) If pt remains NPO >7days of NPO status, provide TPN to meet at least 75% of estimated needs 3) Advance pt diet when medically feasible to a Renal Standard diet modified per [employer] recommendations Expected Outcomes/Goals: 1) Pt to receive nutrition support within 7 days of NPO status 2) Pt diet to advance 3) F/U in 2-3 days SANGEETHA MELENDREZ MD Aug 06, 2024 16:19
--- NOTE | 2024-08-06 16:22 | DVHPN2 ---
Consult Progress Note Date Seen: Aug 04, 2024 Subjective Patient reports: Other (family has decided to do terminal ween , patient is still intubated and tykipnick , heart rate 109 and remains on vent support . not on any pressures ) Objective vital signs Vital Sign Date Time Temp Pulse Resp B/P (MAP) Pulse Ox O2 Delivery O2 Flow Rate FiO2 08/06/24 12:44 97.5 117 20 155/79 (104) 89 97.5 08/06/24 10:10 Room Air* 0 21 medications Current Medications Medications Dose Ordered Sig/Rey Route Start Time Stop Time Status Last Admin Dose Admin Vancomycin HCl 0 ml @ 0 mls/hr UD IV 07/08/24 17:00 Cancel Albumin Human 50 ml @ 100 mls/hr PRN PRN IV 07/13/24 08:30 Cancel Vancomycin HCl 0 ml @ 0 mls/hr UD IV 07/28/24 19:15 Cancel Enteral Nutritional Formula 1,000 ml 30ML/HR GT 08/01/24 06:45 Cancel Lorazepam 2 mg Q1HP PRN IV 08/05/24 11:45 08/06/24 04:33 2 MG Morphine Sulfate 2 mg Q1HP PRN IV 08/05/24 11:45 08/06/24 10:07 2 MG PHYSICAL EXAM: - GENERAL: Alert and oriented x 3. No acute distress. Well-nourished. - EYES: EOMI. Anicteric. - HENT: Moist mucous membranes. No scleral icterus. No cervical lymphadenopathy. - LUNGS: Clear to auscultation bilaterally. No accessory muscle use. - CARDIOVASCULAR: Regular rate and rhythm. No murmur. No JVD. - ABDOMEN: Soft, non-tender and non-distended. No palpable masses. - EXTREMITIES: No edema. Non-tender.?SKIN: No rashes or lesions. Warm. - NEUROLOGIC: No focal neurological deficits. CN II-XII grossly intact, but not individually tested - PSYCHIATRIC: Cooperative. Appropriate mood and affect laboratory and microbiology Laboratory Tests 08/04/24 02:55 08/03/24 03:15 Test 08/03/24 03:15 Range/Units Serum Glucose 85 74-106 mg/dL Problem List/Assessment/Plan Problems(with codes): (1) E coli bacteremia (2) Coffee ground emesis (3) Necrotizing fasciitis of lower leg (4) Elevated liver enzymes (5) End-stage renal disease on hemodialysis (6) Acute kidney failure, unspecified (7) Chronic kidney disease, unspecified (8) Severe anemia (9) Generalized weakness Problem List/Assessment/Plan ID Problem List: - Septic shock - Necrotizing fasciitis of right lower extremity - End-stage renal disease on hemodialysis - Kidney cancer status post nephrectomy - Coronary artery disease - Hyperlipidemia - Status post CABG - ESBL Bacteria - Pneumonia Assessment This is a 58 y.o. male with a past medical history of kidney cancer status post nephrectomy, end-stage renal disease on hemodialysis, coronary artery disease, hyperlipidemia, and status post CABG, who presents with chest pain, fever, and right thigh tenderness concerning for necrotizing fasciitis. On admission, the patient had a temperature of 104F, hypotension (BP 78/45 mmHg), lactic acid 3.8 mmol/L, elevated AST (3044 U/L) and ALT (560 U/L), WBC count 37,000/mm, hemoglobin 7.5 g/dL, and platelets 62,000/mm. Physical examination notable for right thigh tenderness and generalized weakness. Initial imaging included CT scan of the right thigh showing subcutaneous edema with no gas in soft tissues and small bilateral knee effusions. Chest CT revealed bronchiovascular crowding; underlying pulmonary vascular condition cannot be excluded. Blood cultures are preliminarily positive for gram-negative rods. Respiratory cultures show gram-positive issa. An anaerobic bottle was positive for gram- negative rods. Laboratory studies reveal persistent elevation of liver enzymes with AST 3009 U/L and ALT 1976 U/L. Lactic acid increased to 15 mmol/L, platelets decreased to 32,000/mm. Peripheral smear shows Elizabeth cells. Potassium is elevated at 6 mEq/L. The patient is intubated and sedated for acute hypoxic respiratory failure and altered mental status. 07/10: Undergoing ultra filtration and whitecount is elevated. Pressures are starting to come down since initiating meropenem and platelets are still low at 57 07/11: has an elevated whitecount of 19.1 , LFTs and renal function continue to worsen. blood cultures show ESBL E Coli . chest xray shows a left small bascular airspace disease . Fibrinogen is 433 appears to be adequate and patient is not having any additional signs of bleed . hemoglobin is stable at 8.4 and can hold off on additional transfusions outside of keeping hemoglobin above 7 and platelets above 50 07/12: whitecount is 28.43 , liver enzymes remain elevated at 2955 ALT and 2723 AST , as [place] [id number] 07/24: extubated 2 days ago tolerated cpap on trickle feeds remains somewhat altered leukocytosis rising, restarted on pressors for last 2 days sacral ulcer present, thigh cellulitis resolved, respiratory culture w/ filamentus fungi 06/25: high fevers 06/26: thick mendoza secretions patient reintubated 07/28: white count is 13.6 , repeat blood cultures show young colonies 07/29: white count is 11.2 , respiratory cultures from bronchoscopy shows gram negative rods 07/30: white count is normalized , respiratory culture shows Stenotrophomonas 07/31: appears to be clinically improving , growing Stenotrophomonas on respiratory cultures that are sensitive to Bactrim , tolerating dialysis 08/01: patient appears to be clinically responding to antibiotic therapy with no signs of intolerance to Bactrim 08/02: doppler was done to the left upper extremity and no DVT was found , on BAl culture 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 which are all potential causes of pneumonia in imunocompromised patients and susceptibilities pending 08/03: whitecount is 10.8 , patient appears to not be showing any signs for ongoing sepsis 08/04: chest xray shows no ongoing concering consolidations in the lungs Plan: -Continue Mycofungen 150 milligrams daily , at this both filamentous fungi organisms are likely to be covered - work with pharmacy to acquire posaconazole when patient is able to tolerate oral therapy - patient should continue antifungal treatment for at least 12 weeks - Continue Bactrim 3 milligrams per kilogram 1x a day after given dialysis - follow up on sensitivity of fungi on sputum culture and adjust antifungal treatment based on results - monitor LFTs daily - keep MAP goal to 65 for patient to maintain blood pressure support - check blood culture to confirm clearance of bacteremia - continue vancomycin empirically in setting of septic shock - Surgical Consultation: Agree with general surgeon that clinical picture favors hematoma vs cellulitis , no signs of necrotizing infection at this time - Supportive Care: Continue vasopressor support with norepinephrine (Levophed) and epinephrine as needed for septic shock. - Laboratory Monitoring: Recheck laboratory values including CBC, CMP, lactic acid, and coagulation profile. Monitor liver function tests. - Renal Management: Coordinate with nephrology for hemodialysis management. - Isolation Precautions: Standard precautions. Authorized and Performed by: sangeetha melendrez Total critical care time: Approximately 72 minutes Due to a high probability of clinically significant, life threatening deterioration, the patient required my highest level of preparedness to intervene emergently and I personally spent this critical care time directly and personally managing the patient. This critical care time included obtaining a history; examining the patient; pulse oximetry; ordering and review of studies; arranging urgent treatment with development of a management plan; evaluation of patient's response to treatment; frequent reassessment; and, discussions with other providers. This critical care time was performed to assess and manage the high probability of imminent, life-threatening deterioration that could result in multi-organ failure. It was exclusive of separately billable procedures and treating other patients and teaching time. Plan discussed with: Other Dietary Evaluation Review Comments: 1) If GI is accessible consider Nepro 1.8 @ 20 ml/hr with current rate of propofol on board 2) If pt remains NPO >7days of NPO status, provide TPN to meet at least 75% of estimated needs 3) Advance pt diet when medically feasible to a Renal Standard diet modified per [employer] recommendations Expected Outcomes/Goals: 1) Pt to receive nutrition support within 7 days of NPO status 2) Pt diet to advance 3) F/U in 2-3 days SANGEETHA MELENDREZ MD Aug 06, 2024 16:22
--- NOTE | 2024-08-06 23:07 | DVHPN2 ---
Progress Note - Dictate Date Seen: Aug 06, 2024 Has the PT tested + for MRSA If YES, has PT been informed?: No Medical Necessity Reason Pt with a Central, PICC or Fol: Yes The following are medically ne: Central Line Subjective Patient was seen and evaluated in follow up. Patient has been downgraded. Patient's daughter Rajani is at bedside. Patient receiving comfort measures. CM is arranging for home hospice. Telemetry reviewed. vital signs Vital Sign Date Time Temp Pulse Resp B/P (MAP) Pulse Ox O2 Delivery O2 Flow Rate FiO2 08/06/24 12:05 96.0 116 20 100 08/06/24 10:55 133/85 08/06/24 10:10 Room Air* 0 21 medications Current Medications Medications Dose Ordered Sig/Rey Route Start Time Stop Time Status Last Admin Dose Admin Vancomycin HCl 0 ml @ 0 mls/hr UD IV 07/08/24 17:00 Cancel Albumin Human 50 ml @ 100 mls/hr PRN PRN IV 07/13/24 08:30 Cancel Vancomycin HCl 0 ml @ 0 mls/hr UD IV 07/28/24 19:15 Cancel Enteral Nutritional Formula 1,000 ml 30ML/HR GT 08/01/24 06:45 Cancel Lorazepam 2 mg Q1HP PRN IV 08/05/24 11:45 08/06/24 04:33 2 MG Morphine Sulfate 2 mg Q1HP PRN IV 08/05/24 11:45 08/06/24 10:07 2 MG objective GENERAL: Unresponsive. Morbidly obese. LUNGS: Decreased breath sounds. CARDIOVASCULAR: Heart sounds are good. ABDOMEN: Soft. EXT: BLE edema. laboratory and microbiology Laboratory Tests 08/04/24 02:55 08/03/24 03:15 Test 08/03/24 03:15 Range/Units Serum Glucose 85 74-106 mg/dL Problem List Hypotension secondary to septic shock. Coronary artery disease status post CABG in 2021. History of hypertension. Hyperlipidemia. Hyperkalemia. Acute anemia. Thrombocytopenia. Transaminitis. End-stage renal disease on hemodialysis. Renal cell carcinoma status post left nephrectomy. COPD. Asthma. Morbid obesity. Dilated cardiomyopathy. Metabolic encephalopathy. Assessment/Plan Continued all current supportive medical care. Comfort measures with Ativan and Morphine. Additional plan as per the hospital course. Dietary Evaluation Review Comments: 1) If GI is accessible consider Nepro 1.8 @ 20 ml/hr with current rate of propofol on board 2) If pt remains NPO >7days of NPO status, provide TPN to meet at least 75% of estimated needs 3) Advance pt diet when medically feasible to a Renal Standard diet modified per [employer] recommendations Expected Outcomes/Goals: 1) Pt to receive nutrition support within 7 days of NPO status 2) Pt diet to advance 3) F/U in 2-3 days Plan discussed with: Other FRIDA SIMMONS MD Aug 06, 2024 12:27
--- NOTE | 2024-08-06 23:48 | DVHPN2 ---
Progress Note - Dictate Date Seen: Aug 06, 2024 Has the PT tested + for MRSA If YES, has PT been informed?: No Medical Necessity Reason Pt with a Central, PICC or Fol: Yes The following are medically ne: Central Line Subjective Patient seen and examined at bedside. Remains on room air. Overnight events reviewed. vital signs Vital Sign Date Time Temp Pulse Resp B/P (MAP) Pulse Ox O2 Delivery O2 Flow Rate FiO2 08/06/24 21:00 98.4 102 18 91 98.4 08/06/24 20:00 Room Air* 0 21 medications Current Medications Medications Dose Ordered Sig/Rey Route Start Time Stop Time Status Last Admin Dose Admin Vancomycin HCl 0 ml @ 0 mls/hr UD IV 07/08/24 17:00 Cancel Albumin Human 50 ml @ 100 mls/hr PRN PRN IV 07/13/24 08:30 Cancel Vancomycin HCl 0 ml @ 0 mls/hr UD IV 07/28/24 19:15 Cancel Enteral Nutritional Formula 1,000 ml 30ML/HR GT 08/01/24 06:45 Cancel Lorazepam 2 mg Q1HP PRN IV 08/05/24 11:45 08/06/24 04:33 2 MG Morphine Sulfate 2 mg Q1HP PRN IV 08/05/24 11:45 08/06/24 19:12 2 MG objective Gen.: Patient lying in bed in no apparent distress. On room air. Head: Normocephalic, atraumatic. Eyes: EOMI/PERRLA. Ears: Normal hearing. Normal anatomy. Neck/trachea: Trachea midline, supple. Nose: Normal external anatomy. Mouth: Moist mucous membranes. Chest: Decreased air entry bilaterally. No wheezing or rhonchi. Cardiovascular: Positive S1, positive S2. Regular rate and rhythm. Abdomen: Positive bowel sounds in all 4 quadrants. Soft, non-tender, non- distended. : Deferred. Rectal: Deferred. Skin: Warm, dry. Intact. Extremities: 2+ radial pulses bilaterally. No lower extremity edema. Neuro: Off sedation, not alert. No gross motor or sensory deficits. Cranial nerves II through XII intact. Gait not assessed laboratory and microbiology Laboratory Tests 08/04/24 02:55 08/03/24 03:15 Test 08/03/24 03:15 Range/Units Serum Glucose 85 74-106 mg/dL Assessment/Plan Impression: Acute hypoxic respiratory failure Pulmonary edema Necrotizing fasciitis Septic shock Morbid obesity Events: Remains on room air. No respiratory distress. Off sedation DNR/comfort measures Supportive care Off pressors Monitor hemodynamics Monitor hemoglobin Tube feeds for nutritional support Pain control Avoid oversedation Monitor platelet count Monitor WBC Head of bed elevation Aspiration precautions. Wound care HD per Nephrology - discontinued Monitor renal function Monitor electrolytes. Supplement as necessary. Nephrology recommendations appreciated S/p compassionate extubation Disposition per hospitalist. Poor prognosis, poor chance of meaningful recovery. U/S Doppler of left upper extremity negative for DVT. 07/17/24 - S/p therapeutic bronchoscopy w/ RLL BAL - cleared mucous plugging from L6-L10 and R6-R10 See separate procedure note for details. Labs and imaging reviewed. Rest of plan as noted below. Plan: S/p compassionate extubation on 08/04/24 On room air. Off sedation Off pressors Comfort measures Supportive care Bronchodilators PRN HD per Nephrology - discontinued Monitor renal function Monitor electrolytes. Supplement as necessary. Monitor ins and outs. GI prophylaxis. DVT prophylaxis. Prognosis: Poor given patient's multiple co-morbidities. Rest of plan per hospitalist and other consultants. Thank you Dr. Johnson, for allowing me to participate in this patient's care. Further recommendations will depend on the patient's clinical course. Please do not hesitate to contact me if you have any questions or concerns. This medical document was created using an electronic medical record system with [employer] dictation system. Although these documentations are being carefully reviewed, there may still be some phonetic and typographical changes. The errors are purely typographical, due to imperfection on the software program, and do not reflect any compromise in the patient's medical care. Dietary Evaluation Review Comments: 1) If GI is accessible consider Nepro 1.8 @ 20 ml/hr with current rate of propofol on board 2) If pt remains NPO >7days of NPO status, provide TPN to meet at least 75% of estimated needs 3) Advance pt diet when medically feasible to a Renal Standard diet modified per [employer] recommendations Expected Outcomes/Goals: 1) Pt to receive nutrition support within 7 days of NPO status 2) Pt diet to advance 3) F/U in 2-3 days Plan discussed with: Other (JACEK Ybarra) EB DEJESUS MD Aug 06, 2024 23:48
[2024-08-07 01:00] VITALS: PULSE 101; RESP 20; TEMP 97.8; O2SAT 97
[2024-08-07 05:00] VITALS: PULSE 101; RESP 18; TEMP 97.5; O2SAT 97
[2024-08-07 07:30] VITALS: RESP 25
[2024-08-07 09:00] VITALS: BP 108/74; PULSE 103; RESP 22; TEMP 98.8; O2SAT 97
[2024-08-07] MEDS ORDERED: MORPHINE SULFATE 4 MG/ML SYR/VIAL IV PRN (11:45)
[2024-08-07 13:00] VITALS: BP 71/45; PULSE 100; RESP 21; TEMP 98; O2SAT 84
--- NOTE | 2024-08-07 18:26 | DVHPN2 ---
Progress Note - Dictate Date Seen: Aug 07, 2024 Has the PT tested + for MRSA If YES, has PT been informed?: No Medical Necessity Reason Pt with a Central, PICC or Fol: Yes The following are medically ne: Central Line Subjective Patient was seen and evaluated in follow up earlier today. Patietn unresponsive in bed. Does not appear to be in any pain or discomfort. Patient is receiving comfort care. Telemetry reviewed. vital signs Vital Sign Date Time Temp Pulse Resp B/P (MAP) Pulse Ox O2 Delivery O2 Flow Rate FiO2 08/07/24 13:00 98.0 100 21 71/45 (54) 84 98.0 08/07/24 07:30 Room Air* 0 21 medications Current Medications Medications Dose Ordered Sig/Rey Route Start Time Stop Time Status Last Admin Dose Admin Vancomycin HCl 0 ml @ 0 mls/hr UD IV 07/08/24 17:00 Cancel Albumin Human 50 ml @ 100 mls/hr PRN PRN IV 07/13/24 08:30 Cancel Vancomycin HCl 0 ml @ 0 mls/hr UD IV 07/28/24 19:15 Cancel Enteral Nutritional Formula 1,000 ml 30ML/HR GT 08/01/24 06:45 Cancel Lorazepam 2 mg Q1HP PRN IV 08/05/24 11:45 08/07/24 11:51 2 MG Morphine Sulfate 4 mg Q2HP PRN IV 08/07/24 11:45 objective GENERAL: Unresponsive. Morbidly obese. LUNGS: Decreased breath sounds. CARDIOVASCULAR: Heart sounds are good. ABDOMEN: Soft. EXT: BLE edema. laboratory and microbiology Laboratory Tests 08/04/24 02:55 08/03/24 03:15 Test 08/03/24 03:15 Range/Units Serum Glucose 85 74-106 mg/dL Problem List Hypotension secondary to septic shock. Coronary artery disease status post CABG in 2021. History of hypertension. Hyperlipidemia. Hyperkalemia. Acute anemia. Thrombocytopenia. Transaminitis. End-stage renal disease on hemodialysis. Renal cell carcinoma status post left nephrectomy. COPD. Asthma. Morbid obesity. Dilated cardiomyopathy. Metabolic encephalopathy. Assessment/Plan Continued all current supportive medical care. Comfort measures with Ativan and Morphine. Additional plan as per the hospital course. Dietary Evaluation Review Comments: 1) If GI is accessible consider Nepro 1.8 @ 20 ml/hr with current rate of propofol on board 2) If pt remains NPO >7days of NPO status, provide TPN to meet at least 75% of estimated needs 3) Advance pt diet when medically feasible to a Renal Standard diet modified per [employer] recommendations Expected Outcomes/Goals: 1) Pt to receive nutrition support within 7 days of NPO status 2) Pt diet to advance 3) F/U in 2-3 days Plan discussed with: Other FRIDA SIMMONS MD Aug 07, 2024 15:59
--- NOTE | 2024-08-07 20:49 | DVHPN2 ---
Progress Note - Dictate Date Seen: Aug 07, 2024 Has the PT tested + for MRSA If YES, has PT been informed?: No Medical Necessity Reason Pt with a Central, PICC or Fol: Yes The following are medically ne: Central Line Subjective Patient seen and examined at bedside. Remains on room air. Overnight events reviewed. vital signs Vital Sign Date Time Temp Pulse Resp B/P (MAP) Pulse Ox O2 Delivery O2 Flow Rate FiO2 08/07/24 13:00 98.0 100 21 71/45 (54) 84 98.0 08/07/24 07:30 Room Air* 0 21 medications Current Medications Medications Dose Ordered Sig/Rey Route Start Time Stop Time Status Last Admin Dose Admin Vancomycin HCl 0 ml @ 0 mls/hr UD IV 07/08/24 17:00 Cancel Albumin Human 50 ml @ 100 mls/hr PRN PRN IV 07/13/24 08:30 Cancel Vancomycin HCl 0 ml @ 0 mls/hr UD IV 07/28/24 19:15 Cancel Enteral Nutritional Formula 1,000 ml 30ML/HR GT 08/01/24 06:45 Cancel Lorazepam 2 mg Q1HP PRN IV 08/05/24 11:45 08/07/24 11:51 2 MG Morphine Sulfate 4 mg Q2HP PRN IV 08/07/24 11:45 objective Gen.: Patient lying in bed in no apparent distress. On room air. Head: Normocephalic, atraumatic. Eyes: EOMI/PERRLA. Ears: Normal hearing. Normal anatomy. Neck/trachea: Trachea midline, supple. Nose: Normal external anatomy. Mouth: Moist mucous membranes. Chest: Decreased air entry bilaterally. No wheezing or rhonchi. Cardiovascular: Positive S1, positive S2. Regular rate and rhythm. Abdomen: Positive bowel sounds in all 4 quadrants. Soft, non-tender, non- distended. : Deferred. Rectal: Deferred. Skin: Warm, dry. Intact. Extremities: 2+ radial pulses bilaterally. No lower extremity edema. Neuro: Off sedation, not alert. No gross motor or sensory deficits. Cranial nerves II through XII intact. Gait not assessed laboratory and microbiology Laboratory Tests 08/04/24 02:55 08/03/24 03:15 Test 08/03/24 03:15 Range/Units Serum Glucose 85 74-106 mg/dL Assessment/Plan Impression: Acute hypoxic respiratory failure Pulmonary edema Necrotizing fasciitis Septic shock Morbid obesity Events: Remains on room air. No respiratory distress. Off sedation DNR/comfort measures Supportive care Off pressors Monitor hemodynamics Monitor hemoglobin Tube feeds for nutritional support Pain control Avoid oversedation Anxiolytic - Ativan PRN Monitor platelet count Monitor WBC Head of bed elevation Aspiration precautions. Wound care HD per Nephrology - discontinued Monitor renal function Monitor electrolytes. Supplement as necessary. Nephrology recommendations appreciated S/p compassionate extubation Disposition per hospitalist. Poor prognosis, poor chance of meaningful recovery. Addendum: I was informed by RN that the patient this PM. Pronounced time of 1345 hours. U/S Doppler of left upper extremity negative for DVT. 07/17/24 - S/p therapeutic bronchoscopy w/ RLL BAL - cleared mucous plugging from L6-L10 and R6-R10 See separate procedure note for details. Labs and imaging reviewed. Rest of plan as noted below. Plan: S/p compassionate extubation on 08/04/24 On room air. Off sedation Off pressors Comfort measures Supportive care Bronchodilators PRN HD per Nephrology - discontinued Monitor renal function Monitor electrolytes. Supplement as necessary. Monitor ins and outs. GI prophylaxis. DVT prophylaxis. Prognosis: Poor given patient's multiple co-morbidities. Rest of plan per hospitalist and other consultants. Thank you Dr. Johnson, for allowing me to participate in this patient's care. Further recommendations will depend on the patient's clinical course. Please do not hesitate to contact me if you have any questions or concerns. This medical document was created using an electronic medical record system with [employer] dictation system. Although these documentations are being carefully reviewed, there may still be some phonetic and typographical changes. The errors are purely typographical, due to imperfection on the software program, and do not reflect any compromise in the patient's medical care. Dietary Evaluation Review Comments: 1) If GI is accessible consider Nepro 1.8 @ 20 ml/hr with current rate of propofol on board 2) If pt remains NPO >7days of NPO status, provide TPN to meet at least 75% of estimated needs 3) Advance pt diet when medically feasible to a Renal Standard diet modified per [employer]POSAL TECHNICIAN recommendations Expected Outcomes/Goals: 1) Pt to receive nutrition support within 7 days of NPO status 2) Pt diet to advance 3) F/U in 2-3 days Plan discussed with: Other (JACEK Cevallos/MELISSA) EB DEJESUS MD Aug 07, 2024 20:49
--- NOTE | 2024-08-08 05:33 | DVHPN2 ---
Subjective Unresponsive Family wanted to wait on the discharge since patient has been getting worse Reviewed: Care Plan, H&P, Labs, Medications Changes from previous H/P or p: Changes General: Per HPI Eyes: No Pain, No Vision change, No Conjunctivae inflammation, No Eyelid inflammation, No Other, No Redness ENT: No Ear pain, No Ear discharge, No Nose pain, No Nose discharge, No Nose congestion, No Mouth pain, No Mouth swelling, No Throat pain, No Throat swelling, No Other Cardiovascular: Chest Pain Respiratory: Cough Gastrointestinal: No Nausea, No Vomiting, No Abdominal Pain, No Diarrhea, No Constipation, No Melena, No Hematochezia, No Other Genitourinary: No Dysuria, No Frequency, No Incontinence, No Hematuria, No Retention, No Other Musculoskeletal: other, leg pain Skin: Other Objective Vitals Vital Signs Date Time Temp Pulse Resp B/P (MAP) Pulse Ox O2 Delivery O2 Flow Rate FiO2 08/07/24 13:00 98.0 100 21 71/45 (54) 84 98.0 08/07/24 07:30 Room Air* 0 21 General Appearance: Other (Unresponsive) Lungs: Other (Bilateral rhonchi) Cardiovascular: Regular rate, Normal S1, Normal S2 Abdomen: Normal bowel sounds, Soft, No tenderness Extremities: Other (2+ edema all upper and lower extremities more pronounced on the left arm) Medications Current Medications Medications Dose Ordered Sig/Rey Route Start Time Stop Time Status Last Admin Dose Admin Vancomycin HCl 0 ml @ 0 mls/hr UD IV 07/08/24 17:00 Cancel Albumin Human 50 ml @ 100 mls/hr PRN PRN IV 07/13/24 08:30 Cancel Vancomycin HCl 0 ml @ 0 mls/hr UD IV 07/28/24 19:15 Cancel Enteral Nutritional Formula 1,000 ml 30ML/HR GT 08/01/24 06:45 Cancel Laboratory Results Laboratory Tests 08/03/24 03:15 08/04/24 02:55 Microbiology Microbiology Date/Time Source Procedure Growth Status 08/06/24 12:27 Nose MRSA Screen - Final Complete 07/27/24 16:00 Sputum Gram Stain - Final Resulted 07/27/24 16:00 Respiratory Culture - Preliminary Stenotrophomonas maltophilia Resulted 07/26/24 14:50 Blood Blood Culture - Final NO GROWTH AFTER 5 DAYS OF INCUBATION. Complete Assessment/Plan Assessment/Plan Acute hypoxic respiratory failure End-stage renal disease on hemodialysis Dilated cardiomyopathy Acute on chronic systolic and diastolic heart failure with ejection fraction 25% Status post severe sepsis with septic shock due to bacteremia and E coli ESBL Morbid obesity Thrombocytopenia Sepsis with septic shock Hypoalbuminemia CAD Mixed hyperlipidemia DM2 PLAN: Sepsis: Amphotericin IV Bactrim IV Pneumonia with Stenotrophomonas maltophilia Bacteremia with E. coli ESBL HD per nephrology LUE edema: Rule out DVT, doppler US Off pressors Taper sedation as tolerated Will meet with family for plan of care 08/03/24: Discussed with family at the bedside Explained to the family the poor prognosis DNR Family would like to go ahead with terminal weaning We will taper down the sedation Discontinue Versed 1st and then fentanyl and then we will do a terminal weaning once the family is ready in 1-2 days 08/04/24: DNR Plan to do terminal extubation tomorrow per family's request HD was not done today due to access difficulty 08/05/24: Downgrade to Med-Surg Comfort measures DC all labs and meds Morphine and Ativan prn for comfort Discussed with the family at the bedside 08/07/24: Keep in hospital Comfort care with morphine and ativan prn Discussed with the and daughter at the bedside Cancel hospice, family declined Patient is getting worse with labored breathing Patient is about to any time Update: Patient at 1:45 pm on 08/07/2024 Plan discussed with: Spouse, Other My Orders Orders - DG AQUINO MD Procedure Category Date Status Time * Dietary Consult CONS 08/07/24 Transmitted 13:14 Date of Service: Aug 07, 2024 Billing Provider: DG AQUINO MD Common Visit Codes: NOT BILLABLE DG AQUINO MD Aug 08, 2024 05:33
--- NOTE | 2024-08-08 14:43 | DVHPN2 ---
Consult Progress Note Date Seen: Aug 06, 2024 Subjective Patient reports: Other (appears more hypertensive and has cold extremities upper and lower and has some modeling of skin . not responding clinically to sternal rub ) Objective vital signs Vital Sign Date Time Temp Pulse Resp B/P (MAP) Pulse Ox O2 Delivery O2 Flow Rate FiO2 08/07/24 13:00 98.0 100 21 71/45 (54) 84 98.0 08/07/24 07:30 Room Air* 0 21 medications Current Medications Medications Dose Ordered Sig/Rey Route Start Time Stop Time Status Last Admin Dose Admin Vancomycin HCl 0 ml @ 0 mls/hr UD IV 07/08/24 17:00 Cancel Albumin Human 50 ml @ 100 mls/hr PRN PRN IV 07/13/24 08:30 Cancel Vancomycin HCl 0 ml @ 0 mls/hr UD IV 07/28/24 19:15 Cancel Enteral Nutritional Formula 1,000 ml 30ML/HR GT 08/01/24 06:45 Cancel PHYSICAL EXAM: - GENERAL: Alert and oriented x 3. No acute distress. Well-nourished. - EYES: EOMI. Anicteric. - HENT: Moist mucous membranes. No scleral icterus. No cervical lymphadenopathy. - LUNGS: Clear to auscultation bilaterally. No accessory muscle use. - CARDIOVASCULAR: Regular rate and rhythm. No murmur. No JVD. - ABDOMEN: Soft, non-tender and non-distended. No palpable masses. - EXTREMITIES: No edema. Non-tender.?SKIN: No rashes or lesions. Warm. - NEUROLOGIC: No focal neurological deficits. CN II-XII grossly intact, but not individually tested - PSYCHIATRIC: Cooperative. Appropriate mood and affect laboratory and microbiology Laboratory Tests 08/04/24 02:55 08/03/24 03:15 Test 08/03/24 03:15 Range/Units Serum Glucose 85 74-106 mg/dL Problem List/Assessment/Plan Problems(with codes): (1) E coli bacteremia (2) Necrotizing fasciitis of lower leg (3) Elevated liver enzymes (4) End-stage renal disease on hemodialysis (5) Acute kidney failure, unspecified (6) Chronic kidney disease, unspecified (7) Severe anemia (8) Sepsis, unspecified organism Problem List/Assessment/Plan ID Problem List: - Septic shock - Necrotizing fasciitis of right lower extremity - End-stage renal disease on hemodialysis - Kidney cancer status post nephrectomy - Coronary artery disease - Hyperlipidemia - Status post CABG - ESBL Bacteria - Pneumonia Assessment This is a 58 y.o. male with a past medical history of kidney cancer status post nephrectomy, end-stage renal disease on hemodialysis, coronary artery disease, hyperlipidemia, and status post CABG, who presents with chest pain, fever, and right thigh tenderness concerning for necrotizing fasciitis. On admission, the patient had a temperature of 104F, hypotension (BP 78/45 mmHg), lactic acid 3.8 mmol/L, elevated AST (3044 U/L) and ALT (560 U/L), WBC count 37,000/mm, hemoglobin 7.5 g/dL, and platelets 62,000/mm. Physical examination notable for right thigh tenderness and generalized weakness. Initial imaging included CT scan of the right thigh showing subcutaneous edema with no gas in soft tissues and small bilateral knee effusions. Chest CT revealed bronchiovascular crowding; underlying pulmonary vascular condition cannot be excluded. Blood cultures are preliminarily positive for gram-negative rods. Respiratory cultures show gram-positive issa. An anaerobic bottle was positive for gram- negative rods. Laboratory studies reveal persistent elevation of liver enzymes with AST 3009 U/L and ALT 1976 U/L. Lactic acid increased to 15 mmol/L, platelets decreased to 32,000/mm. Peripheral smear shows [place] cells. Potassium is elevated at 6 mEq/L. The patient is intubated and sedated for acute hypoxic respiratory failure and altered mental status. 07/10: Undergoing ultra filtration and whitecount is elevated. Pressures are starting to come down since initiating meropenem and platelets are still low at 57 07/11: has an elevated whitecount of 19.1 , LFTs and renal function continue to worsen. blood cultures show ESBL E Coli . chest xray shows a left small bascular airspace disease . Fibrinogen is 433 appears to be adequate and patient is not having any additional signs of bleed . hemoglobin is stable at 8.4 and can hold off on additional transfusions outside of keeping hemoglobin above 7 and platelets above 50 07/12: whitecount is 28.43 , liver enzymes remain elevated at 2955 ALT and 2723 AST , as [place] [address] 07/24: extubated 2 days ago tolerated cpap on trickle feeds remains somewhat altered leukocytosis rising, restarted on pressors for last 2 days sacral ulcer present, thigh cellulitis resolved, respiratory culture w/ filamentus fungi 06/25: high fevers 06/26: thick mendoza secretions patient reintubated 07/28: white count is 13.6 , repeat blood cultures show young colonies 07/29: white count is 11.2 , respiratory cultures from bronchoscopy shows gram negative rods 07/30: white count is normalized , respiratory culture shows Stenotrophomonas 07/31: appears to be clinically improving , growing Stenotrophomonas on respiratory cultures that are sensitive to Bactrim , tolerating dialysis 08/01: patient appears to be clinically responding to antibiotic therapy with no signs of intolerance to Bactrim 08/02: doppler was done to the left upper extremity and no DVT was found , on BAl culture 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 patient has terminally weaned on comfort care Plan: - agree with stopping all antibiotic therapy due to comfort care - Renal Management: Coordinate with nephrology for hemodialysis management. - Isolation Precautions: Standard precautions. Authorized and Performed by: michelle melendrez Total critical care time: Approximately 72 minutes Due to a high probability of clinically significant, life threatening deterioration, the patient required my highest level of preparedness to intervene emergently and I personally spent this critical care time directly and personally managing the patient. This critical care time included obtaining a history; examining the patient; pulse oximetry; ordering and review of studies; arranging urgent treatment with development of a management plan; evaluation of patient's response to treatment; frequent reassessment; and, discussions with other providers. This critical care time was performed to assess and manage the high probability of imminent, life-threatening deterioration that could result in multi-organ failure. It was exclusive of separately billable procedures and treating other patients and teaching time. Plan discussed with: Other Dietary Evaluation Review Comments: 1) If GI is accessible consider Nepro 1.8 @ 20 ml/hr with current rate of propofol on board 2) If pt remains NPO >7days of NPO status, provide TPN to meet at least 75% of estimated needs 3) Advance pt diet when medically feasible to a Renal Standard diet modified per CREDIT OFFICE MANAGER recommendations Expected Outcomes/Goals: 1) Pt to receive nutrition support within 7 days of NPO status 2) Pt diet to advance 3) F/U in 2-3 days MICHELLE MELENDREZ MD Aug 08, 2024 14:43
== END 2024-08-07 13:45 | DRG 870 ==
LOC: EDBD 14:31 → ER 14:31 → TELE 07-09 03:08 → ICU WEST 07-09 14:33 → TELE-CENTR 08-05 20:45
PROVIDERS: ADMIT Internal Medicine; ATTEND Internal Medicine Geriatric Medicine
PROC: 06HY33Z Insertion of Infusion Device into Lower Vein, Percutaneous Approach (ICD-10-PCS; 2024-07-08)
PROC: 02HV33Z Insertion of Infusion Device into Superior Vena Cava, Percutaneous Approach (ICD-10-PCS; 2024-07-09)
PROC: B548ZZA Ultrasonography of Superior Vena Cava, Guidance (ICD-10-PCS; 2024-07-09)
PROC: 03HY32Z Insertion of Monitoring Device into Upper Artery, Percutaneous Approach (ICD-10-PCS; 2024-07-09)
PROC: 5A1D70Z Performance of Urinary Filtration, Intermittent, Less than 6 Hours Per Day (ICD-10-PCS; 2024-07-09)
PROC: 5A1D70Z Performance of Urinary Filtration, Intermittent, Less than 6 Hours Per Day (ICD-10-PCS; 2024-07-10)
PROC: 30233N1 Transfusion of Nonautologous Red Blood Cells into Peripheral Vein, Percutaneous Approach (ICD-10-PCS; 2024-07-11)
PROC: 5A1D70Z Performance of Urinary Filtration, Intermittent, Less than 6 Hours Per Day (ICD-10-PCS; 2024-07-12)
PROC: 5A1D70Z Performance of Urinary Filtration, Intermittent, Less than 6 Hours Per Day (ICD-10-PCS; 2024-07-13)
PROC: 5A1D70Z Performance of Urinary Filtration, Intermittent, Less than 6 Hours Per Day (ICD-10-PCS; 2024-07-15)
PROC: 0B9F8ZX Drainage of Right Lower Lung Lobe, Via Natural or Artificial Opening Endoscopic, Diagnostic (ICD-10-PCS; 2024-07-17)
PROC: 5A1D70Z Performance of Urinary Filtration, Intermittent, Less than 6 Hours Per Day (ICD-10-PCS; 2024-07-17)
PROC: 0BC78ZZ Extirpation of Matter from Left Main Bronchus, Via Natural or Artificial Opening Endoscopic (ICD-10-PCS; 2024-07-17)
PROC: 5A09357 Assistance with Respiratory Ventilation, Less than 24 Consecutive Hours, Continuous Positive Airway Pressure (ICD-10-PCS; 2024-07-18)
PROC: 5A1955Z Respiratory Ventilation, Greater than 96 Consecutive Hours (ICD-10-PCS; principal; 2024-07-19)
PROC: 0BH17EZ Insertion of Endotracheal Airway into Trachea, Via Natural or Artificial Opening (ICD-10-PCS; 2024-07-19)
PROC: 5A1D70Z Performance of Urinary Filtration, Intermittent, Less than 6 Hours Per Day (ICD-10-PCS; 2024-07-19)
PROC: 5A09357 Assistance with Respiratory Ventilation, Less than 24 Consecutive Hours, Continuous Positive Airway Pressure (ICD-10-PCS; 2024-07-20)
PROC: 5A09357 Assistance with Respiratory Ventilation, Less than 24 Consecutive Hours, Continuous Positive Airway Pressure (ICD-10-PCS; 2024-07-21)
PROC: 5A1D70Z Performance of Urinary Filtration, Intermittent, Less than 6 Hours Per Day (ICD-10-PCS; 2024-07-21)
PROC: 5A09357 Assistance with Respiratory Ventilation, Less than 24 Consecutive Hours, Continuous Positive Airway Pressure (ICD-10-PCS; 2024-07-22)
PROC: 5A09357 Assistance with Respiratory Ventilation, Less than 24 Consecutive Hours, Continuous Positive Airway Pressure (ICD-10-PCS; 2024-07-23)
PROC: 5A1D70Z Performance of Urinary Filtration, Intermittent, Less than 6 Hours Per Day (ICD-10-PCS; 2024-07-23)
PROC: 5A09357 Assistance with Respiratory Ventilation, Less than 24 Consecutive Hours, Continuous Positive Airway Pressure (ICD-10-PCS; 2024-07-24)
PROC: 5A09357 Assistance with Respiratory Ventilation, Less than 24 Consecutive Hours, Continuous Positive Airway Pressure (ICD-10-PCS; 2024-07-25)
PROC: 5A09357 Assistance with Respiratory Ventilation, Less than 24 Consecutive Hours, Continuous Positive Airway Pressure (ICD-10-PCS; 2024-07-26)
PROC: 5A1D70Z Performance of Urinary Filtration, Intermittent, Less than 6 Hours Per Day (ICD-10-PCS; 2024-07-26)
PROC: 5A1955Z Respiratory Ventilation, Greater than 96 Consecutive Hours (ICD-10-PCS; 2024-07-27)
PROC: 0B9C8ZX Drainage of Right Upper Lung Lobe, Via Natural or Artificial Opening Endoscopic, Diagnostic (ICD-10-PCS; 2024-07-27)
PROC: 5A09357 Assistance with Respiratory Ventilation, Less than 24 Consecutive Hours, Continuous Positive Airway Pressure (ICD-10-PCS; 2024-07-27)
PROC: 0BH17EZ Insertion of Endotracheal Airway into Trachea, Via Natural or Artificial Opening (ICD-10-PCS; 2024-07-27)
PROC: 0BC78ZZ Extirpation of Matter from Left Main Bronchus, Via Natural or Artificial Opening Endoscopic (ICD-10-PCS; 2024-07-27)
PROC: 0BC38ZZ Extirpation of Matter from Right Main Bronchus, Via Natural or Artificial Opening Endoscopic (ICD-10-PCS; 2024-07-27)
PROC: 0BC38ZZ Extirpation of Matter from Right Main Bronchus, Via Natural or Artificial Opening Endoscopic (ICD-10-PCS; 2024-07-27)
PROC: 5A1D70Z Performance of Urinary Filtration, Intermittent, Less than 6 Hours Per Day (ICD-10-PCS; 2024-07-28)
PROC: 5A1D70Z Performance of Urinary Filtration, Intermittent, Less than 6 Hours Per Day (ICD-10-PCS; 2024-07-29)
PROC: 30233R1 Transfusion of Nonautologous Platelets into Peripheral Vein, Percutaneous Approach (ICD-10-PCS; 2024-07-31)
PROC: 5A1D70Z Performance of Urinary Filtration, Intermittent, Less than 6 Hours Per Day (ICD-10-PCS; 2024-07-31)
PROC: 5A1D70Z Performance of Urinary Filtration, Intermittent, Less than 6 Hours Per Day (ICD-10-PCS; 2024-08-02)
PROC: 5A1D70Z Performance of Urinary Filtration, Intermittent, Less than 6 Hours Per Day (ICD-10-PCS; 2024-08-04)
DX: A41.51 Sepsis due to Escherichia coli [E. coli] (principal); J10.00 Influenza due to other identified influenza virus with unspecified type of pneumonia; M72.6 Necrotizing fasciitis; N18.6 End stage renal disease; R65.21 Severe sepsis with septic shock; J96.01 Acute respiratory failure with hypoxia; G92.8 Other toxic encephalopathy; I50.43 Acute on chronic combined systolic (congestive) and diastolic (congestive) heart failure; N17.9 Acute kidney failure, unspecified; J44.0 Chronic obstructive pulmonary disease with (acute) lower respiratory infection; E87.20 Acidosis, unspecified; D61.818 Other pancytopenia; E87.4 Mixed disorder of acid-base balance; I42.0 Dilated cardiomyopathy; D68.9 Coagulation defect, unspecified; G72.81 Critical illness myopathy; G93.1 Anoxic brain damage, not elsewhere classified; L03.115 Cellulitis of right lower limb; I13.2 Hypertensive heart and chronic kidney disease with heart failure and with stage 5 chronic kidney disease, or end stage renal disease; D68.4 Acquired coagulation factor deficiency; E66.01 Morbid (severe) obesity due to excess calories; E87.5 Hyperkalemia; E78.2 Mixed hyperlipidemia; I25.10 Atherosclerotic heart disease of native coronary artery without angina pectoris; E11.22 Type 2 diabetes mellitus with diabetic chronic kidney disease; Z66 Do not resuscitate; D69.2 Other nonthrombocytopenic purpura; E11.649 Type 2 diabetes mellitus with hypoglycemia without coma; K76.82 Hepatic encephalopathy; D53.9 Nutritional anemia, unspecified; M25.461 Effusion, right knee; M25.462 Effusion, left knee; E88.09 Other disorders of plasma-protein metabolism, not elsewhere classified; F03.90 Unspecified dementia, unspecified severity, without behavioral disturbance, psychotic disturbance, mood disturbance, and anxiety; Z20.822 Contact with and (suspected) exposure to COVID-19; K72.90 Hepatic failure, unspecified without coma; Z90.5 Acquired absence of kidney; Z85.528 Personal history of other malignant neoplasm of kidney; Z95.1 Presence of aortocoronary bypass graft; Z68.31 Body mass index [BMI] 31.0-31.9, adult; Z99.2 Dependence on renal dialysis; Z51.5 Encounter for palliative care
CPT/HCPCS: 31500; 31720; 36415; 36556; 36600; 36620; 70450; 71045; 73700; 76705; 76937; 80048; 80053; 80061; 80074; 80076; 80202; 82040; 82140; 82248; 82271; 82550; 82565; 82607; 82728; 82746; 82805; 82962; 83010; 83036; 83540; 83550; 83605; 83615; 83735; 83880; 84100; 84132; 84443; 84478; 84484; 85007; 85014; 85018; 85025; 85027; 85045; 85379; 85384; 85610; 85730; 86703; 86850; 86900; 86901; 86920; 87040; 87070; 87077; 87081; 87186; 87205; 87426; 87804; 90935; 93005; 93306; 93970; 93971; 94002; 94003; 94640; 94660; 95819; 97163; 99291; G0378; J0171; J1956; J2185; J2248; J2405; J2470; J2543; J2704; J3430; J3480; J3490; J7060; J7131; P9047